=== PATIENT | male | born 1965 | race Caucasian/White ===

== ENCOUNTER 2023-04-29 18:10 | Outpatient (RCR) | payer MEDICARE, SELFPAY | END 2023-05-24 23:59 | disposition home or self-care (01) | LOC: MM 18:10 | PROVIDERS: PCP Internal Medicine; Visit Provider Internal Medicine | DX: Z51.81 Encounter for therapeutic drug level monitoring (principal); Z79.01 Long term (current) use of anticoagulants; I48.91 Unspecified atrial fibrillation | CPT/HCPCS: 85610; G0463 ==

== ENCOUNTER 2023-05-30 10:08 | Outpatient (RCR) | payer MEDICARE, SELFPAY | END 2023-06-24 16:51 | disposition home or self-care (01) | LOC: MM 10:08 | PROVIDERS: PCP Internal Medicine; Visit Provider Internal Medicine | DX: Z51.81 Encounter for therapeutic drug level monitoring (principal); Z79.01 Long term (current) use of anticoagulants; I48.91 Unspecified atrial fibrillation | CPT/HCPCS: 85610; G0463 ==

== ENCOUNTER 2023-06-25 09:05 | Outpatient (RCR) | payer MEDICARE, SELFPAY | END 2023-07-25 17:24 | disposition home or self-care (01) | LOC: MM 09:05 | PROVIDERS: Visit Provider Internal Medicine | DX: Z51.81 Encounter for therapeutic drug level monitoring (principal); Z79.01 Long term (current) use of anticoagulants; I48.91 Unspecified atrial fibrillation | CPT/HCPCS: 85610; G0463 ==

== ENCOUNTER 2023-07-26 08:39 | Outpatient (RCR) | payer MEDICARE, SELFPAY | END 2023-08-23 16:42 | disposition home or self-care (01) | LOC: MM 08:39 | PROVIDERS: Visit Provider Internal Medicine | DX: Z51.81 Encounter for therapeutic drug level monitoring (principal); Z79.01 Long term (current) use of anticoagulants; I48.91 Unspecified atrial fibrillation ==

== ENCOUNTER 2023-08-26 01:39 | Outpatient (RCR) | payer MEDICARE, SELFPAY | END 2023-09-24 17:17 | disposition home or self-care (01) | LOC: MM 01:39 | PROVIDERS: Visit Provider Internal Medicine | DX: Z51.81 Encounter for therapeutic drug level monitoring (principal); Z79.01 Long term (current) use of anticoagulants; I48.91 Unspecified atrial fibrillation | CPT/HCPCS: 85610; G0463 ==

== ENCOUNTER 2023-09-04 14:00 | Outpatient (OUT) | payer MEDICARE, SELFPAY ==
[2023-09-04 14:16] LABS: Basophils Percent Auto 0.4 % (0.2-2.0); Eosinophils Absolute Auto 0.1 10^3/uL (0.0-0.7); Eosinophils Percent Auto 0.9 % (0.9-7.0); Hematocrit 40.7 % (42.0-54.0); Hemoglobin 13.5 g/dL (14.0-18.0); Immature Granulocytes Abs Auto 0.03 10^3/uL (0.00-0.03); Immature Granulocytes Pct Auto 0.4 % (0.0-0.5); Lymphocytes Absolute Auto 1.9 10^3/uL (1.2-3.8); Lymphocytes Percent Auto 24.7 % (20.5-60.0); Mean Corpuscular HGB Conc 33.2 g/dL (29.9-35.2); Mean Corpuscular Hemoglobin 30.9 pg (25.9-34.0); Mean Corpuscular Volume 93.1 fL (80.0-94.0); Mean Platelet Volume 9.8 fL (9.5-13.5); Monocytes Absolute Auto 0.6 10^3/uL (0.3-0.8); Neutrophils Percent Auto 65.6 % (43.0-75.0); Platelet Count 198 10^3/uL (150-450); Red Blood Count 4.37 10^6/uL (4.70-6.10); White Blood Count 7.6 10^3/uL (4.0-11.0)
[2023-09-04 14:44] LABS: Alanine Aminotransferase 16 U/L (16-63); Albumin Globulin Ratio 1.1; Albumin Level 3.6 g/dL (3.4-5.0); Alkaline Phosphatase 77 U/L (46-116); Anion Gap 11.9; Aspartate Amino Transferase 21 U/L (15-37); BUN Creatinine Ratio 17.4; Bilirubin Total 0.4 mg/dL (0.2-1.0); Calcium 9.2 mg/dL (8.5-10.1); Carbon Dioxide 29.1 mmol/L (21.0-32.0); Chloride 103 mmol/L (98-107); Estimated GFR (African America >60 (>=60); Estimated GFR (Non-African Ame >60 (>=60); Globulin 3.4 g/dL; Glucose 97 mg/dL (74-106); Magnesium 1.9 mg/dL (1.8-2.4); Sodium 140 mmol/L (136-145)
== END 2023-09-04 14:01 | disposition home or self-care (01) ==
LOC: LAB 14:02
PROVIDERS: PCP Internal Medicine; Visit Provider Nurse Practitioner
DX: I50.23 Acute on chronic systolic (congestive) heart failure (principal); I25.10 Atherosclerotic heart disease of native coronary artery without angina pectoris; I48.0 Paroxysmal atrial fibrillation
CPT/HCPCS: 36415; 80053; 83735; 83880; 85025

== ENCOUNTER 2023-09-25 00:42 | Outpatient (RCR) | payer MEDICARE, SELFPAY | END 2023-10-24 16:36 | disposition home or self-care (01) | LOC: MM 00:42 | PROVIDERS: PCP Internal Medicine; Visit Provider Internal Medicine | DX: Z51.81 Encounter for therapeutic drug level monitoring (principal); Z79.01 Long term (current) use of anticoagulants; I48.91 Unspecified atrial fibrillation | CPT/HCPCS: 85610; G0463 ==

== ENCOUNTER 2023-10-14 08:05 | Outpatient (OUT) | payer MEDICARE, SELFPAY ==
--- NOTE | 2023-10-14 08:06 | VEIN_ITS ---
Patient Name: TANIA CERVANTES MR#: [id number] : 1965 Exam Date: 10/14/2023 Ordering Doctor: DR MAINE SPRINGER D.O. RADIOLOGY REPORT PROCEDURE: VC EXT VENOUS REFLUX JUAN LMTD COMPARISON: None. INDICATIONS: I83.813 Painful varicose veins of bilateral lower extremitie TECHNIQUE: Duplex imaging of the lower extremity to assess the deep and superficial venous system for the presence of deep or superficial venous incompetence and to document the location and severity of disease. The study includes evaluation of the great saphenous vein (GSV), anterior accessory saphenous vein (AASV) and small saphenous vein (SSV). Patient scanned in reverse Trendelenburg and standing. FINDINGS: RIGHT LOWER EXTREMITY: Saphenofemoral Junction Reflux: Yes 8.8mm 2.1 sec GSV: Diam (mm) Reflux/ Time (sec) Proximal Thigh 7.4 Yes 2.8 Mid Thigh 5.6 Yes 1.0 Distal Thigh 4.3 Yes 1.2 Prox Calf 5.7 Yes 1.0 Mid Calf 3.0 Yes 0.4 Saphenopopliteal Junction Reflux: 4.2mm Yes 0.6 SSV: Proximal Calf 2.4 No Mid Calf 2.6 Yes 0.8 AASV: Not present Proximal Thigh Mid Thigh Distal Thigh Thrombi: No acute or chronic thrombus visualized Compressibility: Normal Flow: Reflux visualized in CFV and DFV. Preforator: Dist/med calf 3.3mm with 0s reflux. Tech Note: Incompetent GSV. Patent varicose vein mid/med calf 5.3mm with 1.8s reflux. Patent varicose vein prox/med calf 4.1mm with 0.7s reflux. Patent varicose vein 3.8mm with 0.6s reflux. Patent varicose vein mid/med calf 3.4mm with 0.9s reflux. LEFT LOWER EXTREMITY: Saphenofemoral Junction Reflux: 9.3 mm 1.9 sec GSV: Diam (mm) Reflux/Time (sec) Proximal Thigh 8.9 Yes 2.3 Mid Thigh 9.4 Yes 2.2 Distal Thigh 10.3 Yes 1.3 Prox Calf 5.7 Yes 2.1 Mid Calf 6.4 Yes 1.0 Saphenopopliteal Junction Relux: 7.6 mm Yes 1.0 SSV: Proximal Calf 7.1 Yes 1.7 Mid Calf 5.3 No AASV: Not present Proximal Thigh Mid Thigh Distal Thigh Thrombi: Chronic thrombus visualized in GSV. Compressibility: Normal Flow: Normal [employer] Supervisor: Dist/med calf 5.9mm with 0.7s reflux. Tech Note: Incompetent GSV and SSV. Patent varicose vein mid/med calf 5.5mm with 2.3s reflux. Patent varicose vein 6.4mm with 2.2s reflux. Patent varicose medial vein 6.5mm with 1.7s reflux. Patent varicose vein mid/med thigh 5.6mm with 0.4s reflux. Patent varicose vein mid/ant thigh 5.6mm with 0.4s reflux. CONCLUSION: 1. Abnormally dilated and incompetent right great saphenous vein, left great saphenous vein, and left small saphenous vein. 2. 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 Dictated by: Bryan Tomas M.D. on 10/14/2023 at 09:08 Approved by: Bryan Tomas M.D. on 10/14/2023 at 10:41
--- NOTE | 2023-10-14 08:06 | VEIN_ITS ---
Patient Name: TANIA CERVANTES MR#: [id number] : 1965 Exam Date: 10/14/2023 Ordering Doctor: DR MAINE SPRINGER D.O. RADIOLOGY REPORT PROCEDURE: [facility] - OFFICE VISIT INITIAL COMPARISON: None. PROGRESS NOTES: [age] year old male who presents with a 4 year history of dilated bulging veins, leg pain and swelling, muscle cramping, edema. The patient's left leg symptoms are worse than the right. There has been a progression of symptoms over past 4 years. This increases with prolonged leg dependency. The patient describes an improvement with rest, elevation, exercise, support stockings, and Tylenol. The patient denies any signs and symptoms to suggest arterial ischemia. The patient describes a family history : Cancer on paternal side. The patient has drinking and smoking history of : Occasional alcohol consumption; no tobacco use. Patient has a past medical history significant for lymphoma, atrial fibrillation, heart disease and multiple ankle/foot surgeries. The patient denies a history of deep venous thrombus or pulmonary embolus. See separate history and physical for medication list. No prior treatment for varicose or spider veins. Current use of compression stockings. After review of nurse notes, history and physical exam I discussed at length the pathophysiology of venous hypertension and possible treatments, therapies and strategies available. We discussed at length the importance of elevating the lower extremities above the level of the heart, increased physical activity and compression stocking use. Ultrasound venous reflux study performed today was discussed at length with the patient. The report demonstrates abnormally dilated and incompetent right great saphenous vein, left great saphenous vein, left small saphenous vein, and bilateral branch saphenous varicosities. PHYSICAL EXAM: The right leg demonstrates multiple prominent varicosities, scattered spider veins, no ulceration, moderate-marked edema, no skin discoloration. The left leg demonstrates numerous prominent varicosities, scattered spider veins, no ulceration, moderate-marked edema, no skin discoloration. Both thighs, legs and feet were symmetrically warm to the touch. Good posterior tibial and dorsalis pedis pulses were present bilaterally. VEIN/VC Facility EST Comprehensive IMPRESSION: 1. Bilateral lower extremity venous insufficiency 2. Bilateral lower extremity varicose veins 3. Moderate-marked bilateral lower extremity subcutaneous edema 4. No flow significant arterial disease 5. CEAP: C3, AP, , MS PLAN: 1. Continued use of compression stockings 2. Elevated legs and increased physical activity symptomatic relief 3. Endovenous laser ablation of left great saphenous vein, right great saphenous vein, left small saphenous vein. 4. Microfoam chemical ablation of bilateral incompetent branch saphenous varicosities. 5. Sclerotherapy as needed. Nurse notes, history and physical were reviewed and confirmed, see attached forms. The nurse was present throughout the physical exam and consultation Dictated by: Bryan Tomas M.D. on 10/14/2023 at 10:42 Approved by: Bryan Tomas M.D. on 10/14/2023 at 11:15
== END 2023-10-14 08:06 | disposition home or self-care (01) ==
LOC: VC 08:05
PROVIDERS: PCP Internal Medicine; Visit Provider Internal Medicine
DX: I83.813 Varicose veins of bilateral lower extremities with pain (principal)
CPT/HCPCS: 93970; G0463

== ENCOUNTER 2023-10-25 09:51 | Outpatient (RCR) | payer MEDICARE, SELFPAY | END 2023-11-22 15:37 | disposition home or self-care (01) | LOC: MM 09:51 | PROVIDERS: PCP Internal Medicine; Visit Provider Internal Medicine | DX: Z51.81 Encounter for therapeutic drug level monitoring (principal); Z79.01 Long term (current) use of anticoagulants; I48.91 Unspecified atrial fibrillation | CPT/HCPCS: 85610; G0463 ==

== ENCOUNTER 2023-11-05 10:18 | Outpatient (OUT) | payer MEDICARE, SELFPAY ==
[2023-11-05 11:07] LABS: Anion Gap 8.8; Carbon Dioxide 31.1 mmol/L (21.0-32.0); Chloride 104 mmol/L (98-107); Estimated GFR (African America >60 (>=60); Estimated GFR (Non-African Ame >60 (>=60); Potassium 3.9 mmol/L (3.5-5.1); Sodium 140 mmol/L (136-145)
== END 2023-11-05 10:19 | disposition home or self-care (01) ==
LOC: LAB 10:21
PROVIDERS: PCP Internal Medicine
DX: I50.22 Chronic systolic (congestive) heart failure (principal)
CPT/HCPCS: 36415; 80051; 82565; 83880; 84520

== ENCOUNTER 2023-11-25 01:05 | Outpatient (RCR) | payer MEDICARE, SELFPAY | END 2023-12-25 17:09 | disposition home or self-care (01) | LOC: MM 01:05 | PROVIDERS: PCP Internal Medicine; Visit Provider Internal Medicine | DX: Z51.81 Encounter for therapeutic drug level monitoring (principal); Z79.01 Long term (current) use of anticoagulants; I48.91 Unspecified atrial fibrillation | CPT/HCPCS: 85610; G0463 ==

== ENCOUNTER 2023-12-26 01:45 | Outpatient (RCR) | payer MEDICARE, SELFPAY | END 2024-01-23 17:16 | disposition home or self-care (01) | LOC: MM 01:45 | PROVIDERS: PCP Internal Medicine; Visit Provider Internal Medicine | DX: Z51.81 Encounter for therapeutic drug level monitoring (principal); Z79.01 Long term (current) use of anticoagulants; I48.91 Unspecified atrial fibrillation | CPT/HCPCS: 85610; G0463 ==

== ENCOUNTER 2024-01-24 01:10 | Outpatient (RCR) | payer MEDICARE, SELFPAY | END 2024-02-21 13:13 | disposition home or self-care (01) | LOC: MM 01:10 | PROVIDERS: PCP Internal Medicine; Visit Provider Internal Medicine | DX: Z51.81 Encounter for therapeutic drug level monitoring (principal); Z79.01 Long term (current) use of anticoagulants; I48.91 Unspecified atrial fibrillation | CPT/HCPCS: 85610; G0463 ==

== ENCOUNTER 2024-02-24 03:15 | Outpatient (RCR) | payer MEDICARE, SELFPAY | END 2024-03-24 18:07 | disposition home or self-care (01) | LOC: MM 03:15 | PROVIDERS: PCP Internal Medicine; Visit Provider Internal Medicine | DX: Z51.81 Encounter for therapeutic drug level monitoring (principal); Z79.01 Long term (current) use of anticoagulants; I48.91 Unspecified atrial fibrillation | CPT/HCPCS: 85610; G0463 ==

== ENCOUNTER 2024-02-25 10:36 | Emergency (ER) | payer MEDICARE, SELFPAY ==
[2024-02-25] VITALS (16 sets, daily range): BP systolic 104–130; BP diastolic 74–88; PULSE 68–88; TEMP 36.2; O2SAT 91–98; BMI 34.3
--- NOTE | 2024-02-25 11:00 | XR_ITS ---
The [address] [address] Patient Name: TANIA CERVANTES MRN: [id number] date: 1965 Sex: M Assigned Patient Location: ER Current Patient Location: ER Accession/Order Number: [id number] Exam Date: 02/25/2024 10:50 Report Date: 02/25/2024 11:45 At the request of: CHEO JOVEL Procedure: XR chest 1V EXAMINATION: XR chest 1V 02/25/2024 8:42 AM PDT HISTORY: Dizziness TECHNIQUE: Single frontal view of the chest acquired. COMPARISONS: Chest x-ray 06/02/2021 FINDINGS: Lines/tubes/other: Cardiac pulse generator and leads are similar. Heart and mediastinum: Cardiac silhouette is upper limits of normal for size, similar. Bones: No acute osseous abnormality. Lungs: Mild bibasilar streaky atelectasis and/or scarring. No pulmonary edema. Pleura: There is no significant pleural effusion or pneumothorax. Other: None. XR/XR chest 1V IMPRESSION: No acute cardiopulmonary abnormality. Electronically authenticated by: JEAN MIMS Date: 02/25/2024 11:45
--- OUTSIDE RECORDS SUMMARY | 2024-02-25 11:00 | XMS_ITS | CCD ---
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 Name Role Phone [place] PARHAM Referring Unavailable OLIVER SPRINGER Primary Care Unavailable POCJUS, [place] DYKES Referring Unavailable OLIVER SPRINGER Primary Care Unavailable POCOS, [place] DYKES Referring Unavailable OLIVER SPRINGER Primary Care Unavailable Oliver Springer Primary Care Provider EVIE CANDELARIA Admitting [place]amonica CANDELARIA, EVIE MARIN Attending UnaEVIE Ybarra Admitting Unavai labEVIE Garrison Referring UnaOLIVER Garcia Primary Care Unavailable PAVELJACE RAWLS Attending Unavailable UNKNOWN, PROVIDER Admitting Unavailable UNKNOWN, PROVIDER Attending Unavailable OLIVER SPRINGER Referring Unavailable OLIVER SPRINGER Primary Care Unavailable ValOliver roy DO Primary Care Provider [phone] Alexander Cox MD Unavailable Abhijit Zelaya MD Unavailable Gian Moran DO, Charles L Primary Care Provider Evie Candelaria DO Unavailable Alexander Cox MD Unavailable Abhijit Zelaya MD Unavailable [phone] Gian Moran DO, Charles L Primary Care Provider Evie Candelaria DO Unavailable [phone] SHAIKH Dereck GARCÍA Attending Unavailable SHAIKH Dereck GARCÍA Admitting Unavailable DR OLIVER SPRINGER Primary Care Unavailable FAWWAD, NOWAK H Attending Unavailable FAWWAD, NOWAK H Admitting Unavailable VALONE, DR GROVE Primary Care Unavailable FAWWAD, NOWAK H Attending Unavailable FAWWAD, NOWAK H Admitting Unavailable VALONE, DR GROVE Primary Care Unavailable FAWWAD, NOWAK H Attending Unavailable FAWWAD, NOWAK H Admitting Unavailable VALONE, DR GROVE Primary Care Unavailable FAWWAD, NOWAK H Admitting Unavailable VALONE, DR GROVE Primary Care Unavailable FAWWAD, NOWAK H Attending Unavailable FAWWAD, NOWAK H Admitting Unavailable VALONE, DR GROVE Primary Care Unavailable FAWWAD, NOWAK H Attending Unavailable FAWWAD, NOWAK H Admitting Unavailable VALONE, DR GROVE Primary Care Unavailable FAWWAD, NOWAK H Attending Unavailable FAWWAD, NOWAK H Attending Unavailable VALONE, DR GROVE Primary Care Unavailable FAWWAD, NOWAK H Admitting Unavailable FAWWAD, NOWAK H Attending Unavailable FAWWAD, NOWAK H Admitting Unavailable VALONE, DR GROVE Primary Care Unavailable MISC, DR DUFFY Attending Unavailable VALONE, DR GROVE Primary Care Unavailable MISC, DR DUFFY Admitting Unavailable MISC, DR DUFFY Consulting Unavailable MISC, DR DUFFY Attending Unavailable MISC, DR DUFFY Admitting Unavailable VALONE, DR GROVE Primary Care Unavailable MISC, DR DUFFY Consulting Unavailable FAWWAD, NOWAK H Attending Unavailable FAWWAD, NOWAK H Admitting Unavailable VALONE, DR GROVE Primary Care Unavailable FAWWAD, NOWAK H Attending Unavailable FAWWAD, NOWAK H Admitting Unavailable VALONE, DR GROVE Primary Care Unavailable TERRA, KELLY Attending Unavailable AIMEEMARIOLA De La Rosa Referring Unavailable TERRA, KELLY Attending Unavailable AIMEE MARIOLA Referring Unavailable Alexander Cox MD Unavailable Abhijit Zelaya MD Unavailable Gian Moran DO, Charles L Primary Care Provider Evie Candelaria DO Unavailable OLIVER SPRINGER JR. Primary Care UnavailOLIVER Jarquin JR. Referring UnavailAJIT Sierra Attending Unavailable OLIVER SPRINGER JR. Primary Care Unavailabl e VALONE JR., OLIVER Gomes Referring Unavailabl AUTUMN Wu Attending Unavailable VALONE ., OLVIER Gomes Referring Unavailabl e VALONE JR., OLIVER Gomes Primary Care Unavailabl AUTUMN Wu Attending Unavailable ADRIELONE ., OLIVER Gomes Referring Unavailabl e VALONE JR., OLIVER Gomes Primary Care Unavailabl AJIT Powell Attending Unavailable GIAN MORAN, OLIVER Gomes Referring Unavailabl e VALONE JR., LOIVER Gomes Primary Care Unavailabl e ALEXANDER COX Attending Unavailable VALONE ., OLIVER Gomes Primary Care Unavailabl e VALONE JR., OLIVER Gomes Primary Care Unavailabl e VALONE JR., OLIVER Gomes Primary Care Unavailabl e VALONE JR., OLIVER Gomes Primary Care Unavailabl e VALONE JR., OLIVER Gomes Primary Care Unavailabl e VALONE JR., OLIVER Gomes Primary Care Unavailabl e VALONE JR., OLIVER Gomes Primary Care Unavailabl e VALONE JR., OLIVER Gomes Primary Care Unavailabl e VALONE JR., OLIVER Gomes Primary Care UnavailALEXANDER Mariscal Referring Unavailable DERRICK NUNEZ Attending Unavailable GIAN ., OLIVER Gomes Referring Unavailabl e VALONE JR., OLIVER Gomes Primary Care Unavailabl e ALEXANDER COX Attending Unavailable Allergies Allergy Classification Reported Allergen(s) Allergy Type Date of Onset Reaction(s) Facility (12 sources) *Seasonal Propensity to adverse reactions to substance 05-09-2017 [facility] Medications Current Medications Medication Drug Class(es) Dates Sig (Normalized) Sig (Original) acetaminophen 325 mg oral tablet (1 source) take 2 tablets by mouth every six hours as needed acetaminophen (TYLENOL) 325 MG tablet Take 650 mg by mouth every 6 (six) hours as needed for pain . 0 Active acetaminophen 325 mg / oxyCODONE hydrochloride 5 mg oral tablet (2 sources) Opioid Agonist Start: 03-24-2020 End: 03-31-2020 take 1 tablet by mouth once as needed for pain, then take 2 tablets by mouth every four hours as needed for pain, then take 7 tablets by mouth as needed for pain oxyCODONE-acetamino phen (PERCOCET) 5-325 mg per tablet Indications: Ankle arthritis Take 1 (one) tablet to 2 (two) tablets by mouth every 4 (four) hours as needed for pain (Days supply per fill: 7) . 28 tablet 0 03/24/2020 03/31/2020 Active amiodarone hydrochloride 200 mg oral tablet (12 sources) Antiarrhythmic Start: 11-21-2023 take 0.5 tablet by mouth once daily AMIOdarone 200 MG tablet Indications: PVC's (premature ventricular contractions) Take 0.5 tablets by mouth daily. 45 tablet 1 11/21/2023 Active Start: 06-03-2023 take 0.5 tablet by m out once daily AMIOdarone 200 MG tablet Indications: PVC's (premature ventricular contractions) Take 0.5 tablets by mouth daily. 45 tablet 1 06/03/2023 Active Start: 11-22-2022 take 1 tablet by petros th once daily AMIOdarone 200 MG tablet Indications: PVC's (premature ventricular contractions) Take 1 tablet by mouth daily. 90 tablet 1 11/22/2022 Active Start: 06-26-2022 take 1 tablet by petros th once daily AMIOdarone 200 MG tablet Take 1 tablet by mouth daily. 90 tablet 1 06/26/2022 Active Start: 05-02-2022 take 1 tablet by petros th once daily AMIOdarone 200 MG tablet Take 1 tablet by mouth daily. 90 tablet 1 05/02/2022 Active take 1 tablet by petros th once daily in the morning amiodarone (CORDARONE) 200 MG tablet Take 200 mg by mouth every morning . 0 Active aspirin 81 mg chewable tablet (12 sources) Platelet Aggregation Inhibitor, Nonsteroidal Anti-inflammatory Drug Start: 01-19-2021 aspirin 81 MG Chew Tab chewable tablet Chew 1 tablet daily. 30 tablet 01/19/2021 Active 24 hr buPROPion hydrochloride 300 mg extended release oral tablet (1 source) Aminoketone take 1 tablet by mouth once daily in the morning buPROPion (WELLBUTRIN XL) 300 MG 24 hr tablet Indications: anxiety with depression Take 300 mg by mouth every morning Reasons: anxiousness associated with depression. 0 Active celecoxib 200 mg oral capsule (1 source) Nonsteroidal Anti-inflammatory Drug Start: 03-24-2020 End: 03-31-2020 take 1 capsule by mouth twice daily celecoxib (CELEBREX) 200 MG capsule Take 1 (one) capsule (200 mg total) by mouth 2 (two) times a day for 7 days . 14 capsule 0 03/24/2020 03/31/2020 Active cephalexin 500 mg oral capsule (1 source) Cephalosporin Antibacterial Start: 03-24-2020 End: 03-31-2020 take 1 capsule by mouth four times daily cephALEXin (Keflex) 500 MG capsule Take 1 (one) capsule (500 mg total) by mouth 4 (four) times a day for 7 days . 28 capsule 0 03/24/2020 03/31/2020 Active eplerenone 25 mg oral tablet (13 sources) Aldosterone Antagonist Start: 08-30-2022 End: 09-26-2023 take 1 tablet by mouth once daily eplerenone 25 MG tablet Take 1 tablet by mouth daily. 90 tablet 3 09/26/2023 Active Start: 05-02-2022 End: 08-30-2022 take 0.5 tablet by mouth once daily eplerenone 25 MG tablet Take 0.5 tablets by mouth daily. 45 tablet 1 05/02/2022 08/30/2022 Discontinued fluvoxaMINE maleate 25 mg oral tablet (1 source) Serotonin Reuptake Inhibitor Start: 07-24-2022 take 1 tablet by mouth twice daily fluvoxamine 25 MG tablet Take 25 mg by mouth 2 times daily. 0 07/24/2022 Active furosemide 40 mg oral tablet (4 sources) Loop Diuretic Start: 09-04-2023 End: 09-03-2024 take 1 tablet by mouth every twenty-four hours as needed furOSEmide 40 MG tablet Take 1 tablet by mouth daily as needed. 09/04/2023 09/03/2024 Active losartan potassium 50 mg oral tablet (1 source) Angiotensin 2 Receptor Ashley take 1 tablet by mouth once daily in the evening losartan (COZAAR) 50 MG tablet Indications: pulmonary Take 50 mg by mouth every evening Reasons: pulmonary. 0 Active 24 hr metoprolol succinate 50 mg extended release oral tablet (12 sources) beta-Adrenergic Ashley Start: 10-15-2023 Metoprolol succinate 50 MG tablet XL 50mg QAM + 25mg QPM 135 tablet 1 10/15/2023 Active Start: 06-26-2022 metoprolol suc cinate 50 MG tablet XL 50mg QAM + 25mg QPM 180 tablet 2 06/26/2022 Active Start: 05-04-2022 metoprolol suc cinate 50 MG tablet XL 50mg QAM + 25mg QPM 180 tablet 2 05/04/2022 Active take 1 tablet by petros th twice daily metoprolol tartrate (LOPRESSOR) 50 MG tablet Indications: pulmonary function Take 50 mg by mouth 2 (two) times a day Reasons: pulmonary function. 0 Active 12 hr ranolazine 500 mg extended release oral tablet (3 sources) Anti-anginal Start: 05-02-2022 take 1 tablet by mouth twice daily Ranolazine 500 MG Tab SR 12 HR tablet Take 1 tablet by mouth 2 times daily. 180 tablet 1 05/02/2022 Active rosuvastatin calcium 10 mg oral tablet (12 sources) HMG-CoA Reductase Inhibitor take 1 tablet by mouth once daily rosuvastatin 10 MG tablet Take 1 tablet by mouth daily. Active sacubitril 49 mg / valsartan 51 mg oral tablet (12 sources) Angiotensin 2 Receptor Ashley Start: 10-03-2022 End: 09-26-2023 Entresto 49-51 MG tablet 0.5 tab two times daily 90 tablet 3 09/26/2023 Active Start: 12-21-2021 take 0.5 tablet by out twice daily Entresto 49-51 MG tablet Take 0.5 tablets by mouth 2 times daily. 0 12/21/2021 Active spironolactone 25 mg oral tablet (1 source) Aldosterone Antagonist take 1 tablet by mouth once daily in the morning spironolactone (ALDACTONE) 25 MG tablet Indications: edema Take 25 mg by mouth every morning Reasons: visible water retention. 0 Active warfarin sodium 5 mg oral tablet (13 sources) Vitamin K Antagonist Start: 03-25-20 End: 04-24-20 20 take 1 tablet by mouth once daily in the evening warfarin (COUMADIN) 5 MG tablet Indications: prevent thromboembolism in chronic atrial fibrillation Take 1 (one) tablet (5 mg total) by mouth every evening Start: 03/25/20 Reasons: treatment to prevent blood clots in chronic atrial fibrillation. 30 tablet 0 03/25/2020 04/24/2020 Active Completed/Discontinued Medications Medication Drug Class(es) Dates Sig (Normalized) Sig (Original) calcium chloride 0.0014 meq/ml / potassium chloride 0.004 meq/ml / sodium chloride 0.103 meq/ml / sodium lactate 0.028 meq/ml injectable solution (1 source) Start: 03-24-2020 End: 03-24-2020 lactated Ringers infusion dapagliflozin 5 mg oral tablet (3 sources) Sodium-Glucose Cotransporter 2 Inhibitor Start: 05-02-2022 End: 08-30-2022 take 1 tablet by mouth once daily dapagliflozin 5 MG tablet Take 1 tablet by mouth daily. 90 tablet 1 05/02/2022 08/30/2022 Discontinued 0.4 ml enoxaparin sodium 100 mg/ml prefilled syringe (1 source) Low Molecular Weight Heparin Start: 03-24-2020 End: 03-24-2020 inject 0.4 mL by subcutaneous injection once daily enoxaparin (Lovenox) 40 mg/0.4 mL Syrg Inject 0.4 mL (40 mg total) under the skin daily . 30 Syringe 0 03/24/2020 03/24/2020 Discontinued (Stop Taking at Discharge) 20 ml fentaNYL 0.05 mg/ml injection (2 sources) Opioid Agonist Start: 03-24-2020 End: 03-24-2020 25 mcg, Intravenous, Every 5 min PRN, moderate to severe pain, Starting Yvonne 03/24/20 at 1204, For 4 doses, PACU (only) [] Do not give more than 100 mcg while in PACU. Start: 03-24-2020 End: 03-24-2020 100 mcg, Intravenous, Once, Yvonne 03/24/20 at 0715, For 1 dose, Pre-Procedure Pre-procedure for nerve block. May repeat in 5 minutes x 1 if sedation inadequate to perform block. 0.5 ml HYDROmorphone hydrochloride 1 mg/ml prefilled syringe (1 source) Opioid Agonist Start: 03-24-2020 End: 03-24-2020 0.5 mg, Intravenous, Every 10 min PRN, moderate to severe pain, Starting Yvonne 03/24/20 at 1204, For 6 doses, PACU (only) [] Give if fentanyl not effective or not ordered. [] Do not give more than 3 mg total. 4 ml labetalol hydrochloride 5 mg/ml cartridge (1 source) beta-Adrenergic Ashley Start: 03-24-2020 End: 03-24-2020 5 mg, Intravenous, Every 5 min PRN, SBP greater than 160 or DBP greater than 90, Starting Yvonne 03/24/20 at 1204, For 4 doses, PACU (only) [] Do not give more than 20 mg total. [] Hold for HR less than 50. Lidocaine (1 source) Antiarrhythmic, Amide Local Anesthetic Start: 03-24-2020 End: 03-24-2020 5 mL, Other, Once, Yvonne 03/24/20 at 0715, For 1 dose, Pre-Procedure [] for anesthesia block administration 5 ml midazolam 1 mg/ml injection (1 source) Benzodiazepine Start: 03-24-2020 End: 03-24-2020 2 mg, Intravenous, Once, Yvonne 03/24/20 at 0715, For 1 dose, Pre-Procedure Pre-proced ure for nerve block. May repeat in 5 minutes x 1 if sedation inadequate to perform block. naloxone (NARCAN) injection 0.1 mg (2 sources) Start: 03-24-2020 End: 03-24-2020 naloxone (NARCAN) injection 0.1 mg Start: 03-24-2020 End: 03-24-2020 naloxone (NARCAN) injection 0.1 mg 2 ml ondansetron 2 mg/ml injection (1 source) Serotonin-3 Receptor Antagonist Start: 03-24-2020 End: 03-24-2020 4 mg, Intravenous, Every 15 min PRN, nausea, vomiting, Starting Yvonne 03/24/20 at 1204, For 2 doses, PACU (only) Do not give more than 2 doses. Administer first as needed for nausea/vomiting, or as directed by anesthesia oxyCODONE hydrochloride 20 mg/ml oral solution (1 source) Opioid Agonist Start: 03-24-2020 End: 03-24-2020 take 5 mg under the tongue every twenty-four hours as needed 5 mg, Sublingual, Once as needed, moderate to severe pain, Pain, Starting Yvonne 03/24/20 at 1204, For 1 dose, PACU (only) Use first if unable to tolerate oral route. 20 ml ropivacaine hydrochloride 5 mg/ml injection (1 source) Amide Local Anesthetic Start: 03-24-2020 End: 03-24-2020 45 mL, Infiltration, Once, Yvonne 03/24/20 at 0715, For 1 dose, Pre-Procedure [] for anesthesia block administration sertraline 100 mg oral tablet (1 source) Serotonin Reuptake Inhibitor Start: 04-17-2023 End: 09-26-2023 take 1 tablet by mouth once daily Sertraline 100 MG tablet Take 1 tablet by mouth daily. 0 04/17/2023 09/26/2023 Discontinued (Discontinued by another clinician (suppress cancel msg)) Problems Active Problems Problem Classification Problem Date Documented Da te Episodic/Chronic Cardiac dysrhythmias (20 sources) Paroxysmal atrial fibrillation; Translations: [Paroxysmal atrial fibrillation] Onset: 05-09-2017 07-11-2020 Chronic Conduction disorders (2 sources) Encounter for adjustment and management of automatic implantable cardiac defibrillator; Translations: [Encounter for adjustment and management of automatic implantable cardiac defibrillator] Onset: 06-05-2023 Chronic Congestive heart failure; nonhypertensive (20 sources) Acute on chronic systolic heart failure; Translations: [Acute on chronic systolic (congestive) heart failure] Onset: 01-04-2022 01-04-2022 Chronic Coronary atherosclerosis and other heart disease (5 sources) Coronary atherosclerosis; Translations: [Atherosclerotic heart disease of [place] coronary artery without angina pectoris] Onset: 09-04-2023 Chronic Other aftercare (2 sources) Patient encounter status; Translations: [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] Episodic Other aftercare (5 sources) Encounter for therapeutic drug level monitoring; Translations: [ENC THERAPEUTC DRUG LEVL MONITORING] Onset: 03-23-2023 Episodic Other aftercare (1 source) 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; Translations: [SENIOR AUDITOR CURRNT USE ANTICOAGULANTS] Onset: 04-24-2023 Episodic Other non-traumatic joint disorders (1 source) Disorder of ankle joint; Translations: [Ankle arthritis] Episodic Other nutritional; endocrine; and metabolic disorders (9 sources) Obese class I; Translations: [Obesity, unspecified] Onset: 08-30-2022 08-30-2022 Chronic Residual codes; unclassified (11 sources) Obstructive sleep apnea syndrome; Translations: [Obstructive sleep apnea (adult) (pediatric)] Onset: 01-04-2022 01-04-2022 Chronic Past or Other Problems Problem Classification Problem Date Documented Da te Episodic/Chronic Other aftercare (2 sources) 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; Translations: [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] Onset: 05-23-2023 Episodic Other non-traumatic joint disorders (2 sources) Hip pain Episodic Results Test Name Value Interpretation Reference Range Facility ALP ALT Manuel 01-09-2024 ALP [Catalytic activity/Vol] 66 U/L Normal 32-126 [facility] Comment on above: Performed By: #### E NZ3 #### [facility] (DEFAULT) [address] [place] [address] ALT [Catalytic activity/Vol] 10 U/L Normal 10-52 [facility] Comment on above: Performed By: #### E NZ3 #### [facility] (DEFAULT) [address] [address] AST [Catalytic activity/Vol] 21 U/L Normal 10-39 [facility] Comment on above: Performed By: #### E NZ3 #### [facility] (DEFAULT) [address] [place] [address] T4 FREEon 01-09-2024 Free T4 [Mass/Vol] 1.43 ng/dL Normal 0.89-1.76 [facility] Comment on above: Performed By: #### T DEBORAH, FT4 #### [facility] (DEFAULT) [address] [place] [address] TSHon 01-09-2024 TSH 1.456 uIU/mL Normal 0.550-4.780 [facility] Comment on above: Performed By: #### Denny CABRERA, FT4 #### [facility] (DEFAULT) [address] [place] [address] BNP, MANUAL ENTERon 11-06-20 B-Type Natriuretic Peptide (BNP), MANUAL ENTER 1159 [facility] Comment on above: NT-PRO BNP [facility] CHEM 7 PANEL, MANUAL ENTERon 11-06-2023 Blood Urea Nitrogen (BUN), MANUAL ENTER 17.0 [facility] BUN/CREA RATIO, MANUAL ENTER [facility] CALCIUM (CA), MANUAL ENTER [facility] Carbon Diox(CO2), MANUAL ENTER 31.1 [facility] Chloride (CL), MANUAL ENTER 104 mmol/L [facility] CREATININE, SERUM, MANUAL ENTER 1.10 mg/dL [facility] GLUCOSE, [facility] MAGNESIUM (MG), MANUAL ENTER [facility] Phosphate (PO4), Manual Enter [facility] POTASSIUM (K+), MANUAL ENTER 3.9 [facility] SODIUM (NA), [facility]IM[facility] G[facility], NON A DAMIAN, MANUAL ENTERon 11-06-2023 ESTIMATED GFR, NON AMER, MANUAL ENTER [facility] Office Visiton 09-04-2023 Follow-up visit [id number] Tania Venegas 1965 M Date Provider Department Center 09/04/2023 Katherin-KELLY ELLISON CARD [facility] Family History Problem Relation Age of Onset COPD Father Other Father Family Status - Relation Status Age at Father Level of Service:97552 PA OFFICE/OUTPATIENT ESTABLISHED MOD MDM 30-39 MIN Normal [facility] ALP ALT Manuel 05-23-2023 ALP [Catalytic activity/Vol] 65 U/L Normal 32-126 [facility] Comment on above: Performed By: #### Manny MERRILL, O, KKO #### [facility] (DEFAULT) [address] [place] [id number] ALT [Catalytic activity/Vol] 7 U/L Low 10-52 [facility] Comment on above: Performed By: #### Manny MERRILL, MGO, KKO #### [facility] (DEFAULT) [address] [place] [address] AST [Catalytic activity/Vol] 25 U/L Normal 10-39 [facility] Comment on above: Performed By: #### Manny MERRILL, MGO, KKO #### [facility] (DEFAULT) [address] [place] [address] MAGNESIUMon 05-23-2023 Magnesium [Mass/Vol] 2.0 mg/dL Normal 1.6-2.6 [facility] Comment on above: Performed By: #### E SYLVIE3, TANVIR, ANGELO #### [facility] (DEFAULT) [address] [place] [address] POTASSIUMon 05-23-2023 Potassium [Moles/Vol] 4.6 mmol/L Normal 3.5-5.0 [facility] Comment on above: Performed By: #### E SYLVIE3, TANVIR, ANGELO #### [facility] (DEFAULT) [address] [place] [address] TSH W/FT4 REFLEXon 3 TSH 1.254 uIU/mL Normal 0.550-4.780 [facility] Comment on above: Performed By: #### T SHQR #### [facility] (DEFAULT) [address] [place] [address] FUNCTIONAL VO2 TESTINGOrdere d By: Arpan Ya on 01-10-2023 % APHRMAX 77 % [facility] Work Phone: APHRMAX 163 bpm [facility] Work Phone: Baseline DBP 69 mmHg [facility] Work Phone: Baseline DBP 66 mmHg [facility] Work Phone: Baseline HR 76 bpm [facility] Work Phone: Baseline HR 75 bpm [facility] Work Phone: Body surface area Derived from formula 2.39 m2 [facility] Work Phone: Estimated workload 8.0 METS [facility] Work Phone: Exercise duration (min) 6 min [facility] Work Phone: Exercise duration (sec) 42 sec [facility] Work Phone: lowest spo2 97 [facility] Work Phone: [facility] VO2 METS 8 [facility] Work Phone: Peak DBP 66 mmHg [facility] Work Phone: Peak HR 125 bpm [facility] Work Phone: Peak percent predicted 77 [facility] Work Phone: Peak SBP 130 mmHg [facility] Work Phone: peak SpO2 97 [facility] Work Phone: PEAKVO2 20 [facility] Work Phone: percent of peak vo2 87 [facility] Work Phone: Rate Pressure Product [id number] [facility] Work Phone: RER 1.24 [facility] Work Phone: RPE 19 [facility] Work Phone: RR MAX 28 [facility] Work Phone: ventilatory efficiency/vco2 30 [facility] Work Phone: vo2 at anaerobic threshold 18.3 [facility] Work Phone: FUNCTIONAL VO2 TESTINGon There is a mild reduction in cardiopulmonary exercise capacity. Peak VO2 20.0, which is 77% predicted. RER: (1.24), excellent exercise effort. Ventilatory efficiency is normal. Ve/VCO2 30. Estimated workload 8 METS. The resting blood pressure of 116/69 mmHg kyle to a maximum blood pressure of 130/66 mmHg. ECG results indeterminate due to a paced rhythm. Stress Findings A stress test was performed using the Patricio protocol, with the patient reaching stage 3. The patient reported no symptoms prior to the stress test. The patient reported shortness of breath during the stress test. 8/10 at peak Onset of symptoms occurred at stage 2 of the protocol. Blood pressure demonstrated a blunted response to exercise. The test was stopped due to fatigue and dyspnea. ECG ECG results indeterminate due to a paced rhythm. VO2 Findings There is a mild reduction in cardiopulmonary exercise capacity. RER: 1.24, excellent. Ventilatory efficiency is normal. CARDIOLOGY No Panel InformationOrdered By: Arpan Ya on 01-10-2023 Baseline SBP 116 [facility]: [facility] Work Phone: No Panel Informationon 01-10 Radiology Study observation (narrative) [facility] Vital signsOrdered By: Arpan Ya on 01-10-2023 Oxygen saturation in Blood 97 % [facility] Work Phone: Office Visiton 12-12-2022 Follow-up visit [id number] Tania Venegas 1965 M Date Provider Department Center 12/12/2022 KELLY WAN KIRSTEN [facility] Family History Problem Relation Age of Onset COPD Father Other Father Family Status - Relation Status Age at Father Level of Service:79641 PA OFFICE/OUTPATIENT ESTABLISHED MOD MDM 30-39 MIN Reason for Visit and Comments: Congestive Heart Failure [127] Coronary Artery Disease [187] Atrial Fibrillation [80] Normal [facility] PROF CHEM 8 (BAS METB)on Anion gap [Moles/Vol] 10.4 mmol/L Normal [facility] Comment on above: Performed By: #### B MP #### [facility] [address] [address] [address] Robbin Meek Calcium [Mass/Vol] 8.7 mg/dL Normal 8.5-10.1 [facility] Comment on above: Performed By: #### B MP #### [facility] [address] [address] [address] Robbin Meek Chloride [Moles/Vol] 101 mmol/L Normal 98-107 [facility] Comment on above: Performed By: #### B MP #### [facility] [address] [address] [address] Robbin Meek CO2 [Moles/Vol] 29.9 mmol/L Normal 21.0-32.0 [facility] Comment on above: Performed By: #### B MP #### [facility] [address] [address] [address] Robbin Meek Creatinine [Mass/Vol] 1.15 mg/dL Normal 0.70-1.30 [facility] Comment on above: Performed By: #### B MP #### [facility] [address] [address] [address] Robbin Meek EGFR-AF FAROESE >60 Normal >=60 [facility] Comment on above: Performed By: #### B MP #### [facility] [address] [address] [address] Robbin Meek EGFR-NON AF FAROESE >60 Normal >=60 [facility] Comment on above: Performed By: #### B MP #### [facility] [address] [address] [address] Robbin Meek Glucose [Mass/Vol] 101 mg/dL Normal 74-106 [facility] Comment on above: Performed By: #### B MP #### [facility] [address] [address] [address] Robbin Meek Potassium [Moles/Vol] 4.3 mmol/L Normal 3.5-5.1 [facility] Comment on above: Performed By: #### B MP #### [facility] [address] [address] [address] Robbin Meek Sodium [Moles/Vol] 137 mmol/L Normal 136-145 [facility] Comment on above: Performed By: #### B MP #### [facility] [address] [address] [address] Robbin Meek Urea nitrogen [Mass/Vol] 17.0 mg/dL Normal 7.0-18.0 [facility] Comment on above: Performed By: #### B MP #### [facility] [address] [address] [address] Robbin Meek Urea nitrogen/Creatinine [Mass ratio] 14.8 mg/mg Normal [facility] Comment on above: Performed By: #### B MP #### [facility] [address] [address] [address] Robbin Meek DEVICE EVALUATION (SCANNED)o n 06-08-2022 [facility] No Panel Informationon 06-01 ANION GAP, MANUAL ENTER 11.3 O [facility] Blood Urea Nitrogen (BUN), MANUAL ENTER 18 [facility] BUN/CREA RATIO, MANUAL ENTER 15.5 [facility] CALCIUM (CA), MANUAL ENTER 8.9 [facility] Carbon Diox(CO2), MANUAL ENTER 27.2 [facility] Chloride (CL), MANUAL ENTER 101 mmol/L [facility] CREATININE, SERUM, MANUAL ENTER 1.16 mg/[facility]IM[facility] GFR, , MANUAL ENTER >60 [facility] ESTIMATED GFR, NON AMER, MANUAL ENTER >60 [facility] GLUCOSE, MANUAL ENTER 98 [facility] MAGNESIUM (MG), MANUAL ENTER [facility] Phosphate (PO4), Manual Enter [facility] POTASSIUM (K+), MANUAL ENTER 4.5 [facility] SODIUM (NA), MANUAL ENTER 135 [facility] PROF CHEM 8 (BAS METB)on Anion gap [Moles/Vol] 11.3 mmol/L Normal [facility] Comment on above: Performed By: #### B MP #### [facility] [address] [address] [address] Robbin Meek Calcium [Mass/Vol] 8.9 mg/dL Normal 8.5-10.1 [facility] Comment on above: Performed By: #### B MP #### [facility] [address] [address] [address] Robbin Meek Chloride [Moles/Vol] 101 mmol/L Normal 98-107 [facility] Comment on above: Performed By: #### B MP #### [facility] [address] [address] [address] Robbin Meek CO2 [Moles/Vol] 27.2 mmol/L Normal 21.0-32.0 [facility] Comment on above: Performed By: #### B MP #### [facility] [address] [address] [address] Robbin Meek Creatinine [Mass/Vol] 1.16 mg/dL Normal 0.70-1.30 [facility] Comment on above: Performed By: #### B MP #### [facility] [address] [place] [address] Dr. Robbin Meek EGFR-AF FAROESE >60 Normal >=60 [facility] Comment on above: Performed By: #### B MP #### [facility] [address] [address] [address] Robbin Meek EGFR-NON AF FAROESE >60 Normal >=60 [facility] Comment on above: Performed By: #### B MP #### [facility] [address] [place] [address] Dr. Robbin Meek Glucose [Mass/Vol] 98 mg/dL Normal 74-106 [facility] Comment on above: Performed By: #### B MP #### [facility] [address] [place] [address] Dr. Robbin Meek Potassium [Moles/Vol] 4.5 mmol/L Normal 3.5-5.1 [facility] Comment on above: Performed By: #### B MP #### [facility] [address] [place] [address] Dr. Robbin Meek Sodium [Moles/Vol] 135 mmol/L Critically low 136-145 [facility] Comment on above: Performed By: #### B MP #### [facility] [address] [place] [address] Dr. Robbin Meek Urea nitrogen [Mass/Vol] 18.0 mg/dL Normal 7.0-18.0 [facility] Comment on above: Performed By: #### B MP #### [facility] [address] [place] [address] Dr. Robbin Meek Urea nitrogen/Creatinine [Mass ratio] 15.5 mg/mg Normal [facility] Comment on above: Performed By: #### B MP #### [facility] [address] [place] [address] Dr. Robbin Meek Coding Summary.on 11-23-2020 Coding Summary. 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 However, the narrative phrase printed from the coding software may appear abbreviated, or result in slightly different terminology. Coded By: Lary Huerta Date Saved: 11/23/2020 10:36 am [facility] Coding Summary.on 11-16-2020 Coding Summary. CODING DATE: 11/16/2020 FINAL [facility] STATUS: Home (Routine DC) PAYOR: Medicare APC DESCRIPTION 5481 Laser Eye Procedures ADMIT DX: REASON FOR VISIT DX: H26.492 Other secondary cataract, left eye FINAL DX: PRINCIPAL: H26.492 Other secondary cataract, left eye SECONDARY: PYMT PROC APC STAT DESCRIPTION DOCTOR NAME DATE 82575 5481 T Discission of secondary Matthias Dillon DO 11/10/2020 membranous cataract (opacified posterior lens capsule and/or anterior hyaloid); laser surgery (eg, YAG laser) (1 or more stages) LT Left side (used to identify procedures performed on the left side of the body) NOTE: The code number assigned matches the documented diagnosis and / or procedure in the patient's chart. However, the narrative phrase printed from the coding software may appear abbreviated, or result in slightly different terminology. Coded By: Lary Huerta Date Saved: 11/16/2020 01:26 pm [facility] Consent for Procedure/Surger yon 11-15-2020 Consent for Procedure/Surgery [id number] #1.00CD:127 [facility] Consent for Treatmenton 10-26 Consent for Treatment [id number] #1.00CD:127 Normal [facility] Discharge Instructionson Discharge Instructions [id number] 120 [id number] #1.00CD:127 Normal [facility] History and Physicalon 11-15 History and Physical [id number] 0 [id number] #1.00CD:127 Normal [facility] IntraOperative Documentson 1 01-16-2020 IntraOperative Documents [id number] #1.00CD:127 Normal [facility] IntraOperative Documents [id number] #1.00CD:127 [facility] Consent for Procedure/Surger yon 11-11-2020 Consent for Procedure/Surgery [id number] 0#1.00CD:127 [facility] Discharge Instructionson Discharge Instructions [id number] [id number]#1.00CD:127 Normal [facility] History and Physicalon 11-11 History and Physical [id number] 0#1.00CD:127 Normal [facility] IntraOperative Documentson 01-12-2020 IntraOperative Documents [id number] 4#1.00CD:127 Normal [facility] IntraOperative Documents [id number]#1.00CD:127 Normal [facility] Consent for Treatmenton 10-25 Consent for Treatment [id number] 01 [id number] #1.00CD:127 Normal [facility] COVID-19([facility])on 07-21-2020 COVID-19([facility]) NOT DETECTED Normal NOT DETECTED [facility] Comment on above: Performed By: #### C OVID-19([facility]) #### [facility] [address] [place], [place] [id number] COVID-19([facility])on 07-18-2020 Age at specimen collection = Normal [facility] Comment on above: Performed By: #### C OVID-19([facility]) #### [facility] [address] [place], [place] [id number] PT/INRon 03-24-2020 INR Coag (PPP) [Relative time] 1.0 {INR} [facility] Interpretation and review of laboratory results Normal [facility] PT Coag (PPP) [Time] 13.1 s [facility] During the induction phase of oral anticoagulation, the INR may not reflect the anticoagulation status of the patient. Therapeutic ranges for INR's are: Most clinical situations: INR 2.0-3.0 Mechanical Prosthetic Valve: INR 2.5-3.5 Critical: INR >5.0 [facility] SCAN OTHER ORDERSon 03-24-20 Ordered by an unspecified provider. [facility] Otheron 02-18-2020 Ordered by an unspecified provider. [facility] XR HIP 2-3 VW W PELVIS LEFTo n 12-24-2019 XR HIP 2-3 VW W PELVIS LEFT EXAM: XR HIP 2-3 VW W PELVIS LEFT HISTORY: M25.552 54-year-old male, left hip pain and burning 3-4 days. COMPARISON: Lumbar spine dictated separately same date. TECHNIQUE: AP pelvis and AP and frog-leg views left hip. FINDINGS: Bilateral total hip prostheses. The left hip prosthesis shows normal alignment and hardware. IMPRESSION: Left hip prosthesis in anatomic alignment. Interpreted by: Yosvany Woodson Jr., MD Signed by: Yosvany Woodson Jr., MD 12/24/19 Final result Normal [facility] XR HIP 2-3 VW W PELVIS LEFTO rdered By: Ny Parham on 12-24-2019 Left hip prosthesis in anatomic alignment. [facility] Work Phone: EXAM: XR HIP 2-3 VW W PELVIS LEFT HISTORY: M25.552 54-year-old male, left hip pain and burning 3-4 days. COMPARISON: Lumbar spine dictated separately same date. TECHNIQUE: AP pelvis and AP and frog-leg views left hip. FINDINGS: Bilateral total hip prostheses. The left hip prosthesis shows normal alignment and hardware. [employer] Phone: Barry, [employer] Incoming Radiant Results From RoomClip - 12/24/2019 10:06 AM EST EXAM: XR HIP 2-3 VW W PELVIS LEFT HISTORY: M25.552 54-year-old male, left hip pain and burning 3-4 days. COMPARISON: Lumbar spine dictated separately same date. TECHNIQUE: AP pelvis and AP and frog-leg views left hip. FINDINGS: Bilateral total hip prostheses. The left hip prosthesis shows normal alignment and hardware. IMPRESSION: Left hip prosthesis in anatomic alignment. [employer] Phone: XR LUMBAR SPINE (MIN 4 VIEWS )on 12-24-2019 XR LUMBAR SPINE (MIN 4 VIEWS) EXAM: XR LUMBAR SPINE (MIN 4 VIEWS) HISTORY: M25.552, 54-year-old male left hip pain, burning. COMPARISON: Pelvis and left hip dictated separately same date. TECHNIQUE: 5 views lumbar spine. FINDINGS: Moderate diffuse disc degenerative change. Partial inclusion of bilateral hip prostheses. Anastomotic suture ring and surgical clips near the ascending colon. IMPRESSION: Multilevel moderate degenerative change. Interpreted by: Yosvany Woodson Jr., MD Signed by: Yosvany Woodson Jr., MD 12/24/19 Final result Normal [facility] XR LUMBAR SPINE (MIN 4 VIEWS )Ordered By: Ny Parham on 12-24-2019 Multilevel moderate degenerative change. [employer] Phone: EXAM: XR LUMBAR SPINE (MIN 4 VIEWS) HISTORY: M25.552, 54-year-old male left hip pain, burning. COMPARISON: Pelvis and left hip dictated separately same date. TECHNIQUE: 5 views lumbar spine. FINDINGS: Moderate diffuse disc degenerative change. Partial inclusion of bilateral hip prostheses. Anastomotic suture ring and surgical clips near the ascending colon. [employer] Phone: Barry, Mhpn Incoming Radiant Results From [employer] - 12/24/2019 10:06 AM EST EXAM: XR LUMBAR SPINE (MIN 4 VIEWS) HISTORY: M25.552, 54-year-old male left hip pain, burning. COMPARISON: Pelvis and left hip dictated separately same date. TECHNIQUE: 5 views lumbar spine. FINDINGS: Moderate diffuse disc degenerative change. Partial inclusion of bilateral hip prostheses. Anastomotic suture ring and surgical clips near the ascending colon. IMPRESSION: Multilevel moderate degenerative change. [employer] Phone: Basic Metabolic Panlon 12-09 Anion gap [Moles/Vol] 14 mmol/L Normal 9-18 [facility] Comment on above: Performed By: #### B YA, HFP, LD6 #### [facility] [address] [address] Calcium [Mass/Vol] 8.9 mg/dL Normal 8.5-10.2 [facility] Comment on above: Performed By: #### B YA, HFP, LD6 #### [facility] [address] [address] Chloride [Moles/Vol] 99 mmol/L Normal 97-105 [facility] Comment on above: Performed By: #### B YA, HFP, LD6 #### [facility] [address] [address] CO2 [Moles/Vol] 25 mmol/L Normal 22-30 [facility] Comment on above: Performed By: #### B MP, HFP, LD6 #### [facility] [address] [place], [place] [address] Creatinine [Mass/Vol] 1.08 mg/dL Normal 0.73-1.22 [facility] Comment on above: Performed By: #### B MP, HFP, LD6 #### [facility] [address] [address] eGFR- Amer. >[address] [facility] Comment on above: Performed By: #### B MP, HFP, LD6 #### [facility] [address] [address] GFR/1.73 sq M predicted among non-blacks MDRD (S/P/Bld) [Vol rate/Area] mL/min/{1.73_m2} Normal [facility] Comment on above: Result Comment: eGFR (Estimated GFR) Units of measure: mL/min/1.73 meters squared eGFR is derived from the reexpressed MDRD Study equation using the following parameters: serum creatinine, age, gender and race. The creatinine assay has been calibrated to be traceable to IDMS. An eGFR <60 mL/min/1.73m2 for >3 months is consistent with chronic kidney disease. Refer to KDOQI guidelines for clinical interpretation. In patients with unstable renal function, e.g. those with acute kidney injury, the eGFR may not accurately reflect actual GFR. Performed By: #### B DARELL PANDYA LD6 #### [facility] [address] [id number] Glucose [Mass/Vol] 98 mg/dL Normal 74-99 [facility] Comment on above: Result Comment: The [place] Diabetes Association (ADA) provides guidance for cutoff values for fasting glucose and random glucose. The ADA defines fasting as no caloric intake for at least 8 hours. Fasting plasma glucose results between 100 to 125 mg/dL indicate increased risk for diabetes (prediabetes). Fasting plasma glucose results greater than or equal to 126 mg/dL meet the criteria for diagnosis of diabetes. In the absence of unequivocal hyperglycemia, results should be confirmed by repeat testing. In a patient with classic symptoms of hyperglycemia or hyperglycemic crisis, random plasma glucose results greater than or equal to 200 mg/dL meet the criteria for diagnosis of diabetes. Reference: Standards of Medical Care in Diabetes 2016, [place] [employer] Association. Diabetes Care. 2016.39(Suppl 1). Performed By: #### B DARELL PANDYA, LD6 #### [facility] [address] [place], [place] [address] Potassium [Moles/Vol] 4.5 mmol/L Normal 3.7-5.1 [facility] Comment on above: Performed By: #### B DARELL PANDYA, LD6 #### [facility] [address] [place], [place] [address] Sodium [Moles/Vol] 138 mmol/L Normal 136-144 [facility] Comment on above: Performed By: #### B DARELL PANDYA, LD6 #### [facility] [address] [place], [place] [address] Urea nitrogen [Mass/Vol] 17 mg/dL Normal 9-24 [facility] Comment on above: Performed By: #### B YA, DARELL, LD6 #### [facility] [address] [place], [place] [address] CNOVSPon 12-09-2019 CNOVSP Visit (SP) Office ([facility]) HELENTANIA Manny ([id number]) 1965 M Date Time Provider Department 12/09/19 3:45 PM ARON PEREYRA During your visit today, we recorded the following information about you: Temperature Pulse Respiration Blood pressure 98.1 degrees 64/minute 16/minute 133/88 Weight Height 121.1 kg 1.854 m Aron Pereyra DO 12/12/2019 10:45 AM Signed PATIENT NAME: Tania Venegas REFERRING PHYSICIAN: [facility] PHYSICIAN: Oliver Springer Jr, DO CHIEF COMPLAINT: Diffuse large b-cell lymphoma, unspecified body region (hcc) (primary encounter diagnosis) ASSESSMENT/PLAN: (C83.30) Diffuse large B-cell lymphoma, unspecified body region (HCC) (primary encounter diagnosis) Visit (SP) Office on 12/09/19 - BASIC METABOLIC PNL - CBC + DIFF (FOR REMOTE [facility] USE) - HEPATIC FUNCTION PNL - LD LACTATE DEHYDRO - amiodarone (PACERONE) 200 mg tablet - furosemide (LASIX) 20 mg tablet - spironolactone (ALDACTONE) 25 mg tablet No follow-ups on file. 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 He follows with cardiology. Had ablations for afib and pvcs. Diffuse large B-cell lymphoma, The patient has no signs or symptoms or recurrence. I offered to have him continue to follow yearly or follow-up with me only as needed. His primary care provider, Dr. Springer and I communicate regularly regarding many patients. He will continue to follow with his primary care provider for now without oncologic subspecialty routine follow-up. He will call if he develops any concerning symptoms. HISTORY OF PRESENT ILLNESS: This is a 54 year old male presents in follow up for lymphoma. He continues to follow with cardiology for his idiopathic cardiomyopathy. He has a defibrillator and pacemaker. He is scheduled for an ablation soon as well. He denies any fevers, chills, night sweats, weight loss. He feels well overall. He was diagnosed and treated for stage I lymphoma in 2006. He was treated surgery, followed by with three cycles of chemo and radiation to cure his disease. December 09, 2019 No fevers. Sweats, chills, no lumps or bumps. No problems eating. Gained wt in last few months. Maybe 20lbs. Vitals: BP 133/88 Pulse 64 Temp 36.7 ?C (98.1 ?F) (Oral) Resp 16 Ht 185.4 cm (6' 0.99 ) Wt 121.1 kg (267 lb) SpO2 99% BMI 35.23 kg/m? Body mass index is 35.23 kg/m?. Body surface area is 2.5 meters squared. REVIEW OF SYSTEMS PHYSICAL EXAM ECOG PS: 0 NEGATIVES POSITIVES NEGATIVES POSITIVES GEN: fevers, sweats, chills. Overall feels well. GEN: Well appearing, alert, in no acute distress, appears stated age SKIN: lesions, rash, itching. SKIN: Normal color, texture, turgor, no rashes or lesions HEENT: significant headaches, changes in hearing, changes in vision, nose bleeds. ENT: No scleral icterus. NECK: Supple, no thyromegaly, no JVD. : dysuria, frequency or incontinence. LYMPH: No cervical, supraclavicular, axillary, inguinal adenopathy. RESP: dyspnea, cough, wheezing. LUNG: Clear to auscultation, no wheezing rales or rhonchi CARD: chest pain, leg swelling, palpitations. HEART: Regular. No murmurs, gallop, or rubs. No ectopy. GI: abdominal pain, nausea, vomiting, diarrhea, constipation, melena, hematochezia. ABDM: Soft. Non-tender. Non-distended. Bowel sounds normal. No masses. No hepatosplenomegaly. HEME: prolonged bleeding, bruising, adenopathy. EXT: No clubbing, cyanosis or edema. MUSC: joint pain or swelling. MUSC: No joint swelling, deformity, or tenderness. NEURO: syncope, seizures, peripheral numbness or tingling. BACK: No tenderness to palpation. No flank tenderness. LYMPH: R Submandibular NO L Submandibular NO R Post Auricular NO L Post Auricular NO R Submental NO L Submental NO R Cervical NO L Cervical NO R Supraclavicular NO L Supraclavicular NO R Axillary NO L Axillary NO R Epitroclear NO L Epitroclear NO R Inguinal NO L Inguinal NO R Popliteal NO L Popliteal NO MEDICATIONS: amiodarone (PACERONE) 200 mg tablet amiodarone 200 mg tablet Take 1 tablet by oral route. furosemide (LASIX) 20 mg tablet q 24 HR. spironolactone (ALDACTONE) 25 mg tablet q 24 HR. losartan (COZAAR) 50 mg tablet Take 50 mg by mouth once daily. metoprolol succinate ER (TOPROL XL) 50 mg 24 hr tablet warfarin (COUMADIN) 5 mg tablet 7.5 mg. dofetilide (TIKOSYN) 125 mcg capsule Take 125 mcg by mouth. mexiletine (MEXITIL) 200 mg capsule Take 200 mg by mouth three times daily. 2 caps three times a day oxyCODONE-acetaminop hen (PERCOCET) 5-325 mg tablet traMADol (ULTRAM) 50 mg tablet ALLERGIES: ALLERGIES No Known Allergies PAST MEDICAL HISTORY Diagnosis Date - Lymphoma (HCC) PAST SURGICAL HISTORY Procedure Laterality Date - BONE MARROW ASP BX - HERNIA REPAIR HX - TOTAL HIP REPLACEMENT right No family history on file. SOCIAL HISTORY: Social History Tobacco Use - Smoking status: Never Smoker Substance Use Topics - Alcohol use: Not on file - Drug use: Not on file COUNSELING: I discussed with Tania the natural history, treated course, and prognosis of Diffuse large b-cell lymphoma, unspecified body region (hcc) (primary encounter diagnosis); my impression as well as the rationale, logistics, risks, benefits, and alternatives to the management options noted above; and my recommendations listed below. The patient Tania Venegas verbalized understanding and agreed with these recommendations and plan. I answered all questions satisfactorily.. Derek Pereyra D.O. Medical Oncologist [place], [place] [facility] Referring Provider: SELF [200] Allergies As of Date: 12/09/2019 (No Known Allergies) Date Reviewed: 12/09/2019 Reviewed by: Amber Villatoro - Fully Assessed Reason for Visit: Lymphoma [564] Cmt: 1 year follow up Primary Visit Diagnosis:Diffuse large B-cell lymphoma, unspecified body region (HCC) [C83.30] Order(s):BASIC METABOLIC PNL [SQBMP] Order #: [id number] STANDING CBC + DIFF (FOR REMOTE [facility] USE) [SQRCBCDF] Order #: [id number] STANDING HEPATIC FUNCTION PNL [SQHFP] Order #: [id number] STANDING LD LACTATE DEHYDRO [SQLD6] Order #: [id number] STANDING Prescriptions as of 12/09/2019 Sig: AMIODARONE 200 MG TABLET amiodarone 200 mg tablet Ta* FUROSEMIDE 20 MG TABLET q 24 HR. SPIRONOLACTONE 25 MG TABLET q 24 HR. LOSARTAN 50 MG TABLET Take 50 mg by mouth once michael* METOPROLOL SUCCINATE ER 50 MG* WARFARIN 5 MG TABLET 7.5 mg. DOFETILIDE 125 MCG CAPSULE Take 125 mcg by mouth. MEXILETINE 200 MG CAPSULE Take 200 mg by mouth three ti* OXYCODONE-ACETAMINOP HEN 5 MG-* TRAMADOL 50 MG TABLET Problem List As Of Date 12/09/2019 Noted Resolved Lymphoma [C85.90] 10/20/2012 PTTD (posterior tibial tendon dysfunction) [M76*06/21/2014 Achilles tendon contracture, left [M67.02] 06/21/2014 Valgus deformity of foot [M21.079] 06/21/2014 Encounter Status:Closed by ARON PEREYRA DO on 12/12/19 Normal [facility] Hepatic Functn Panelon 12-09 Albumin [Mass/Vol] 4.1 g/dL Normal 3.9-4.9 [facility] Comment on above: Performed By: #### B MP, HFP, LD6 #### [facility] [address], [place] [address] ALP [Catalytic activity/Vol] 84 U/L Normal 38-113 [facility] Comment on above: Performed By: #### B MP, HFP, LD6 #### [facility] [address] [place], [place] [address] ALT [Catalytic activity/Vol] 8 U/L Low 10-54 [facility] Comment on above: Performed By: #### B MP, HFP, LD6 #### [facility] [address] [place] [address] AST [Catalytic activity/Vol] 24 U/L Normal 14-40 [facility] Comment on above: Performed By: #### B MP, HFP, LD6 #### [facility] [address] [place], [place] [address] Bilirubin [Mass/Vol] 0.2 mg/dL Normal 0.2-1.3 [facility] Comment on above: Performed By: #### B MP, HFP, LD6 #### [facility] [address] [place], [place] [address] Bilirubin,Conjugated <0.2 Normal <0.2 [facility] Comment on above: Performed By: #### B MP, HFP, LD6 #### [facility] [address] [place], [place] [address] Protein [Mass/Vol] 6.8 g/dL Normal 6.3-8.0 [facility] Comment on above: Performed By: #### B MP, HFP, LD6 #### [facility] [address] [place], [place] [address] LDon 12-09-2019 LD 254 U/L High 135-225 [facility] Comment on above: Result Comment: Resu lts may be falsely increased due to interference by hemolysis. Suggest reorder as clinically indicated. Performed By: #### B MP, HFP, LD6 #### [facility] [address] [place], [place] [address] PROGRESSon 12-09-2019 PROGRESS HNO ID: [id number] Author: Aron Pereyra Service: ? Author Type: Physician Type: Progress Notes Filed: 12/12/2019 10:45 AM Note Text: PATIENT NAME: Tania Venegas REFERRING PHYSICIAN: [facility] PRIMARY CARE PHYSICIAN: Oliver Springer Jr, DO CHIEF COMPLAINT: Diffuse large b-cell lymphoma, unspecified body region (hcc) (primary encounter diagnosis) ASSESSMENT/PLAN: (C83.30) Diffuse large B-cell lymphoma, unspecified body region (HCC) (primary encounter diagnosis) Visit (SP) Office on 12/09/19 - BASIC METABOLIC PNL - CBC + DIFF (FOR REMOTE [facility] USE) - HEPATIC FUNCTION PNL - LD LACTATE DEHYDRO - amiodarone (PACERONE) 200 mg tablet - furosemide (LASIX) 20 mg tablet - spironolactone (ALDACTONE) 25 mg tablet No follow-ups on file. 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 He follows with cardiology. Had ablations for afib and pvcs. Diffuse large B-cell lymphoma, The patient has no signs or symptoms or recurrence. I offered to have him continue to follow yearly or follow-up with me only as needed. His primary care provider, Dr. Springer and I communicate regularly regarding many patients. He will continue to follow with his primary care provider for now without oncologic subspecialty routine follow-up. He will call if he develops any concerning symptoms. --- HISTORY OF PRESENT ILLNESS: This is a 54 year old male presents in follow up for lymphoma. He continues to follow with cardiology for his idiopathic cardiomyopathy. He has a defibrillator and pacemaker. He is scheduled for an ablation soon as well. He denies any fevers, chills, night sweats, weight loss. He feels well overall. He was diagnosed and treated for stage I lymphoma in 2006. He was treated surgery, followed by with three cycles of chemo and radiation to cure his disease. December 09, 2019 No fevers. Sweats, chills, no lumps or bumps. No problems eating. Gained wt in last few months. Maybe 20lbs. Vitals: BP 133/88 Pulse 64 Temp 36.7 ?C (98.1 ?F) (Oral) Resp 16 Ht 185.4 cm (6' 0.99 ) Wt 121.1 kg (267 lb) SpO2 99% BMI 35.23 kg/m? Body mass index is 35.23 kg/m?. Body surface area is 2.5 meters squared. REVIEW OF SYSTEMS PHYSICAL EXAM ECOG PS: 0 NEGATIVES POSITIVES NEGATIVES POSITIVES GEN: fevers, sweats, chills. Overall feels well. GEN: Well appearing, alert, in no acute distress, appears stated age SKIN: lesions, rash, itching. SKIN: Normal color, texture, turgor, no rashes or lesions HEENT: significant headaches, changes in hearing, changes in vision, nose bleeds. ENT: No scleral icterus. NECK: Supple, no thyromegaly, no JVD. : dysuria, frequency or incontinence. LYMPH: No cervical, supraclavicular, axillary, inguinal adenopathy. RESP: dyspnea, cough, wheezing. LUNG: Clear to auscultation, no wheezing rales or rhonchi CARD: chest pain, leg swelling, palpitations. HEART: Regular. No murmurs, gallop, or rubs. No ectopy. GI: abdominal pain, nausea, vomiting, diarrhea, constipation, melena, hematochezia. ABDM: Soft. Non-tender. Non-distended. Bowel sounds normal. No masses. No hepatosplenomegaly. HEME: prolonged bleeding, bruising, adenopathy. EXT: No clubbing, cyanosis or edema. MUSC: joint pain or swelling. MUSC: No joint swelling, deformity, or tenderness. NEURO: syncope, seizures, peripheral numbness or tingling. BACK: No tenderness to palpation. No flank tenderness. LYMPH: R Submandibular NO L Submandibular NO R Post Auricular NO L Post Auricular NO R Submental NO L Submental NO R Cervical NO L Cervical NO R Supraclavicular NO L Supraclavicular NO R Axillary NO L Axillary NO R Epitroclear NO L Epitroclear NO R Inguinal NO L Inguinal NO R Popliteal NO L Popliteal NO MEDICATIONS: amiodarone (PACERONE) 200 mg tablet amiodarone 200 mg tablet Take 1 tablet by oral route. furosemide (LASIX) 20 mg tablet q 24 HR. spironolactone (ALDACTONE) 25 mg tablet q 24 HR. losartan (COZAAR) 50 mg tablet Take 50 mg by mouth once daily. metoprolol succinate ER (TOPROL XL) 50 mg 24 hr tablet warfarin (COUMADIN) 5 mg tablet 7.5 mg. dofetilide (TIKOSYN) 125 mcg capsule Take 125 mcg by mouth. mexiletine (MEXITIL) 200 mg capsule Take 200 mg by mouth three times daily. 2 caps three times a day oxyCODONE-acetaminop hen (PERCOCET) 5-325 mg tablet traMADol (ULTRAM) 50 mg tablet ALLERGIES: ALLERGIES No Known Allergies PAST MEDICAL HISTORY Diagnosis Date - Lymphoma (HCC) PAST SURGICAL HISTORY Procedure Laterality Date - BONE MARROW ASP BX - HERNIA REPAIR HX - TOTAL HIP REPLACEMENT right No family history on file. SOCIAL HISTORY: Social History Tobacco Use - Smoking status: Never Smoker Substance Use Topics - Alcohol use: Not on file - Drug use: Not on file COUNSELING: I discussed with Taina the natural history, treated course, and prognosis of Diffuse large b-cell lymphoma, unspecified body region (hcc) (primary encounter diagnosis); my impression as well as the rationale, logistics, risks, benefits, and alternatives to the management options noted above; and my recommendations listed below. The patient Tania Venegas verbalized understanding and agreed with these recommendations and plan. I answered all questions satisfactorily.. Derek Pereyra D.O. Medical Oncologist [facility]. Normal [facility] Remote CBCDIF (for [facility] use o nly)on 12-09-2019 Abs Baso <0.03 Normal 0.00-0.10 [facility] Abs [place] 0.65 k/uL Normal 0.00-0.86 [facility] Abs Neut 3.48 k/uL Normal 1.45-7.50 [facility] Basophils/100 WBC (Bld) 0.3 % Normal [facility] Eosinophils (Bld) [#/Vol] 0.12 10*3/uL Normal 0.00-0.45 [facility] Eosinophils/100 WBC (Bld) 2.0 % Normal [facility] Erythrocyte distribution width (RBC) [Ratio] 15.7 % High 11.5-15.0 [facility] Hematocrit (Bld) [Volume fraction] 38.4 % Low 39.0-51.0 [facility] Hemoglobin (Bld) [Mass/Vol] 12.4 g/dL Low 13.0-17.0 [facility] Lymphocytes (Bld) [#/Vol] 1.59 10*3/uL Normal 1.00-4.00 [facility] Lymphocytes/100 WBC (Bld) 27.1 % Normal [facility] MCH (RBC) [Entitic mass] 27.7 pG Normal 26.0-34.0 [facility] MCHC (RBC) [Mass/Vol] 32.3 g/dL Normal 30.5-36.0 [facility] MCV (RBC) [Entitic vol] 85.7 fL Normal 80.0-100.0 [facility] Monocytes/100 WBC (Bld) 11.1 % Normal C [facility] Neutrophils/100 WBC (Bld) 59.5 % Normal [facility] Platelet mean volume (Bld) [Entitic vol] 9.3 fL Normal 9.0-12.7 [facility] Platelets (Bld) [#/Vol] 196 10*3/uL Normal 150-400 [facility] RBC (Bld) [#/Vol] 4.48 10*6/uL Normal 4.20-6.00 [facility] WBC (Bld) [#/Vol] 5.86 10*3/uL Normal 3.70-11.00 [facility] Cardiovascular Lab Reporton 09-04-2019 Cardiovascular Lab Report [facility] Patient Name: Tania Venegas [facility] MR #: [id number] Physician: Abhijit [facility] Service Date: 09/03/2019 Division of Birthdate: 1965 Cardiology Room #: [facility] Cardiovascular Services [facility] [address] [place] [address] Cardiovascular Laboratory Report INDICATION: The patient is a 54-year-old man with a prior history of coronary artery disease by cardiac catheterization in 2016. He also has a history of dilated cardiomyopathy, and had undergone a SCRAPER TENDER-D placement. He has history of atrial fibrillation status post ablation in 2016 and another ablation in 2017 followed by additional PVC ablation in November 2018, following failure of medical therapy. Most recently he was evaluated because of shortness of breath. A recent cardiac CTA suggested evidence of severe stenosis in the proximal LAD because of that he is referred for cardiac catheterization. PROCEDURES: 1. Right heart catheterization. 2. Bilateral selective coronary angiography. 3. Limited right femoral angiography. METHODS: Procedure was explained to the patient with risks and benefits. He signed informed consent. 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 The right groin area was prepped and draped in usual fashion. Using micropuncture technique, the right common femoral artery was accessed. The inner cannula was advanced. Limited right femoral angiography was performed followed by upsizing to a 6-Malian x 11 cm sheath. Access was obtained using the same technique in the right common femoral vein and a 6-Malian x 11 cm sheath was placed. A 6-Malian Medina catheter was used for right heart catheterization with measurement of pressures and calculation of cardiac output using the estimated Tarun method. Medina catheter was removed. Bilateral selective coronary angiography was then performed using 6-Malian JL4 and JR4 diagnostic catheters. Catheters were removed. Procedure was concluded. He was transferred to the cardiovascular recovery area. The access sheath was removed. Manual compression applied for hemostasis. He will be observed for 6 hours and then discharged to home. TOTAL FLUORO TIME: 6.12 minutes. TOTAL AIR KERMA: 506 mGy. TOTAL CONTRAST VOLUME: 45 mL. HEMODYNAMICS: RA 6, RV 34/4, 8. PA 38/18, mean 27. Pulmonary capillary wedge pressure 15, AO 119/80, mean 97. Cardiac output 7.69. Cardiac index 3.19. PA sat 70%. AO sat 96%. CORONARY ANGIOGRAPHY: This is a right dominant circulation. Left main: This arises from left coronary cusp. It bifurcates into left anterior descending and circumflex vessels. Left main has mild disease. Left anterior descending: This has a 30% ostial and 30% mid irregular stenosis, but otherwise is free of significant disease. Circumflex vessel: This has mild luminal irregularities. Right coronary artery: This arises from the right coronary cusp. It is a large and dominant vessel. It has minimal luminal irregularities throughout its course. Distally, the PLV branch has 20% stenosis. Limited right femoral angiography: This showed access to be in the right common femoral artery with no obstructive lesions noted in the femoral artery was proximal branches. FINDINGS: 1. Mild coronary artery disease. 2. 30% ostial and 30% mid LAD stenosis. 3. 20% stenosis in the proximal segment of the PLV branch of the RCA. 4. Minimal disease in the circumflex vessel. 5. Mildly elevated filling pressures. 6. Normal pulmonary arterial pressures. 7. Preserved cardiac output and cardiac index. 8. Appearance is similar to prior angiography in 2016. RECOMMENDATIONS: 1. Medical therapy for coronary artery disease and systolic heart failure. 2. Follow up in Cardiology Clinic. Electronically Signed by: Abhijit Zelaya M.D. 09/13/2019 06:20 P Abhijit Zelaya M.D. Date Dict: 09/03/2019/10:54 Nikkie/Abhijit Zelaya M.D. Date Trans: 09/04/2019 02:33 Nikkie/richy [id number] cc: Oliver Springer D.O. [address] [place] [address] Normal [facility] CTA HEART-CORONARY/ ARTERY B YPASS GRAFT WITH 3DPPon 08-13-2019 CTA HEART-CORONARY/ ARTERY BYPASS GRAFT WITH 3DPP [facility] Department of Radiology [address] [place] [address] Patient Name: TANIA VENEGAS : 1965 Sex: M Age: Race: White Pt. Location: 30 Patient Status: O Ordered Date: 08/04/2019 10:20:00 AM Completed Date: 08/13/2019 02:29 PM Requesting Provider: VERNON REYNOLDS Attending Provider: VERNON REYNOLDS Report Copy To: OLIVER SPRINGER Signs & Symptoms: I50.30 Unspecified diastolic (congestive) heart failure I10 History: Sharyn Cardiac SS in RIS npc cta/ medicare *er Comments: Exam: CTA HEART-CORONARY/ ARTERY BYPASS GRAFT WITH 3DPP CTA HEART-CORONARY/ ARTERY BYPASS GRAFT WITH 3DPP 08/13/2019 2:29 PM EDT SIGN AND SYMPTOMS: I50.30 Unspecified diastolic (congestive) heart failure I10 TECHNOLOGIST COMMENTS: sob fatigue pt states he has had 2 ablations done already to his heart diastolic heart failure QUESTIONS PER RADIOLOGIST: PROTOCOL: Axial CT angiography images were obtained with IV contrast. CONTRAST: Contrast: OMNIPAQUE 350 (LOCM), 100 milliliter, Intravenous TECHNIQUE: Multidetector CT angiogram was obtained using prospective ECG gating. Imaging was performed from the level of the clavicles to the level of the hemidiaphragms. In order to provide better evaluation of the anatomy and disease process, advanced off-line 3-D post-processing techniques, including were performed. Medication administered in preparation for the examination located in nursing documentation. COMPARISON: December 26, 2016 CORONARY ARTERY ANGIOGRAM FINDINGS: Stenoses are reported as maximum percentage diameter stenosis. Stenosis grading is reported using the following scheme: Normal: no stenosis Mild: 1-49% stenosis Moderate: 50-70% stenosis Severe: >70% stenosis Occluded Dominance of the coronary artery system: co-dominant with normal origins and course. Pacer wires are seen coursing along the right atrium, right ventricle and coronary sinus with associated metallic artifacts. Left Main: The left main is a normal caliber vessel which gives rise to the LAD and circumflex arteries suggestion of small ramus intermedius. The left main with small calcified plaque. No significant stenosis Left Anterior Descending Artery: The proximal left anterior descending artery and first diagonal branch with significant calcified and noncalcified plaque. The mid-distal LAD, D2 and D3 branches with moderate plaque. There is suggestion of severe stenosis in the proximal LAD and moderate stenosis in the mid segment} The ramus intermedius branch with no significant plaque but the artery is very small in caliber. Left Circumflex Artery: The left circumflex artery and its obtuse marginal branches with no significant plaque. No stenosis is appreciated and the vessel terminates as the obtuse marginal branch Right Coronary Artery: The right coronary artery and acute marginal branches with small calcified plaque in the proximal segment. There is moderate calcified plaque in the mid and distal segments with associated moderate stenosis. The vessel terminates as PDA. Cardiac Morphology: The right atrium is normal. The right ventricle is normal. The left atrium is normal with normal 2 pulmonary veins on each side. No significant stenosis at the ostia following prior ablation procedure and left atrial appendage appears unremarkable with no significant filling defects appreciated.. The left ventricle is normal. . The pericardium is normal and there is no pericardial effusion. Cardiac Devices and Indwelling Central Venous Lines: Left subclavian pacer with intact wires similar to prior study EXTRACARDIAC FINDINGS: Other lung findings: Mild bilateral dependent atelectasis. Airway: Normal. Pleura: No pleural effusion, thickening, or pneumothorax. Thoracic aorta and great vessels: Normal in diameter. Pulmonary arteries: Normal. Heart and pericardium: Normal. Lymph nodes: No enlarged thoracic lymph nodes. Thoracic spine: Normal. Chest wall: Normal. Visualized upper abdomen: Small cyst at the dome of the right lobe of the liver. IMPRESSION: 1. Significant calcified plaques within the LAD with severe stenosis in the proximal segment and moderate stenosis in the mid segment.. Mild stenosis in the proximal RCA and moderate stenosis in the mid and distal RCA. No significant stenosis in the left circumflex and obtuse marginal branch 2. Left subclavian pacer with intact wires terminating in the right atrium, right ventricle and coronary sinus with associated metallic artifacts..} 3. Cyst in the dome of the right lobe of the liver. 4. Trim and normal pulmonary veins; 2 on each side without significant stenosis at the ostium following prior ablation procedure Electronically signed by:Rose Cabrera. Transcribed by: [email or web address], User Resident: Electronically Signed by: ROSE CABRERA @ 08/13/2019 09:06 PM Normal [facility] Vital Signs Date Time Vital Sign Value Performing Clinician Facility 09-26-2023 10:35-0400 Diastolic blood pressure 65 mm[Hg] Ajit Hurtado MD Work Phone: [facility] 09-26-2023 10:35-0400 Heart rate 89 /min Ajit Hurtado MD Work Phone: [facility] 09-26-2023 10:35-0400 Systolic blood pressure 101 mm[Hg] Ajit Hurtado MD Work Phone: [facility] 09-26-2023 10:34-0400 Body height 185.4 cm Ajit Hurtado MD Work Phone: [facility] 09-26-2023 10:34-0400 Body mass index (BMI) [Ratio] 34.55 kg/m2 Ajit Hurtado MD Work Phone: [facility] 09-26-2023 10:34-0400 Body weight 118.8 kg Ajit Hurtado MD Work Phone: [facility] 09-26-2023 10:34-0400 Respiratory rate 16 /min Ajit Hrutado MD Work Phone: [facility] 09-26-2023 10:34-0400 SaO2% (BldA) [Mass fraction] 97 % Ajit Hurtado MD Work Phone: 6(285)031-044629 [address] 01-31-2023 08:48-0500 Diastolic blood pressure 68 mm[Hg] Ajit Hurtado MD Work Phone: 1(352)917-068929 [address] 01-31-2023 08:48-0500 Heart rate 72 /min Ajit Hurtado MD Work Phone: 9(768)269-521766 [place] [address] 01-31-2023 08:48-0500 Systolic blood pressure 109 mm[Hg] Ajit Hurtado MD Work Phone: 8(587)339-918466 [place] [address] 01-31-2023 08:47-0500 Body height 185.4 cm Ajit Hurtado MD Work Phone: 5(564)595-428829 [address] 01-31-2023 08:47-0500 Body mass index (BMI) [Ratio] 34.17 kg/m2 Ajit Hurtado MD Work Phone: 4(505)261-647866 [place] [address] 01-31-2023 08:47-0500 Body weight 117.48 kg Ajit Hurtado MD Work Phone: 1(408)167-718066 [place] [address] 01-31-2023 08:47-0500 Respiratory rate 18 /min Ajit Hurtado MD Work Phone: 6(072)468-094366 [place] [address] 01-31-2023 08:47-0500 SaO2% (BldA) [Mass fraction] 97 % Ajit Hurtado MD Work Phone: [facility] 01-10-2023 09:33-0500 Body height 185.4 cm Ajit Hurtado MD Work Phone: [facility] 01-10-2023 09:33-0500 Body mass index (BMI) [Ratio] 33.64 kg/m2 Ajit Hurtado MD Work Phone: 1(984)[phone] [address] 01-10-2023 09:33-0500 Body weight 115.67 kg Ajit Hurtado MD Work Phone: 5(281)151-520729 [address] 08-30-2022 09:25-0400 Diastolic blood pressure 87 mm[Hg] Ajit Hurtado MD Work Phone: 0(127)965-641166 [place] [address] 08-30-2022 09:25-0400 Heart rate 66 /min Ajit Hurtado MD Work Phone: 2(750)790-013766 [place] [address] 08-30-2022 09:25-0400 Systolic blood pressure 135 mm[Hg] Ajit Hurtado MD Work Phone: 4(835)196-658866 [place] [address] 08-30-2022 09:24-0400 Body height 182.9 cm Ajit Hurtado MD Work Phone: 3(443)321-301529 [address] 08-30-2022 09:24-0400 Body mass index (BMI) [Ratio] 34.98 kg/m2 Ajit Hurtado MD Work Phone: 3(563)813-557666 [place] [address] 08-30-2022 09:24-0400 Body weight 116.98 kg Ajit Hurtado MD Work Phone: 3(405)817-676666 [place] [address] 08-30-2022 09:24-0400 Respiratory rate 18 /min Ajit Hurtado MD Work Phone: [facility] 08-30-2022 09:24-0400 SaO2% (BldA) [Mass fraction] 98 % Ajit Hurtado MD Work Phone: 5(243)708-511929 [address] 03-24-2020 13:50-0400 BP Diastolic 88 mm[Hg] Evie Candelaria [facility] 03-24-2020 13:50-0400 BP Systolic 145 mm[Hg] [facility] 03-24-2020 13:50-0400 Pulse (Heart Rate) 64 /min [facility] 03-24-2020 13:50-0400 Pulse Oximetry 100 % [facility] 03-24-2020 13:50-0400 Respiratory Rate 19 /min [facility] 03-24-2020 12:10-0400 Body Temperature 97.7 [degF] [facility] 03-24-2020 06:55-0400 BMI (Body Mass Index) 34.55 kg/m2 [facility] 03-24-2020 06:55-0400 Body weight 118.8 kg [facility] 03-24-2020 06:55-0400 Height 185.4 cm [facility] Encounters Encounter Date Encounter Type Care Provider Facility Start: 01-09-2024 ambulatory OLIVER SPRINGER JR. Fa cility:[facility] Start: 01-09-2024 End: 01-09-2024 Clinical Support Encounter Alexander Cox MD Work Phone: [facility] Comment on above: PVC's (premature nuris tricular contractions) (Primary Dx) Start: 01-09-2024 ambulatory OLIVER SPRINGER JR. Fa cility:[facility] Start: 12-27-2023 Telephone encounter Dax gomes Business Attorney [facility] Comment on above: Outside Medical Bhanu rds Request Start: 11-06-2023 ambulatory Maria Elena Melendrez RN [facility] Start: 09-26-2023 ambulatory OLIVER SPRINGER JR. Fa cility:[facility] Start: 09-26-2023 End: 09-26-2023 Office outpatient visit 25 minutes Ajit Hurtado MD Work Phone: Business Attorney [facility] Comment on above: Chronic systolic hea rt failure (Primary Dx); PVC (premature ventricular contraction); Paroxysmal atrial fibrillation; Coronary artery disease involving [place] coronary artery of [place] heart without angina pectoris Start: 09-04-2023 End: 09-04-2023 ambulatory KELLY TERRA [facility] Start: 07-25-2023 ambulatory OLIVER Gomes ADRIELTANGELA JR. Fa cility:[facility] Start: 07-02-2023 ambulatory OLIVER Kristin GIAN JR. Fa cility:[facility] Start: 06-28-2023 ambulatory OLIVER Kristin GIAN JR. Fa cility:[facility] Start: 06-05-2023 End: 06-05-2023 [facility]ulatory [facility] Start: 05-31-2023 ambulatory [facility] cility:[facility] Start: 05-23-2023 ambulatory [facility] Start: 05-23-2023 ambulatory [facility]ility:[facility] Start: 05-03-2023 ambulatory [facility]ility:[facility] Start: 04-04-2023 ambulatory [facility]ility:[facility] Start: 03-25-2023 End: 04-24-2023 ambulatory SHAIKH Dereck GARCÍA Facility:H1 Start: 03-07-2023 ambulatory [facility]ility:[facility] Start: 02-25-2023 End: 03-22-2023 ambulatory SHAIKH Dereck GARCÍA Facility:[facility]1 Start: 02-07-2023 ambulatory [facility] cility:[facility] Start: 01-31-2023 ambulatory [facility] cility:[facility] Start: 01-31-2023 End: 01-31-2023 Office outpatient visit 25 minutes Ajit Hurtaod MD Work Phone: [facility] Comment on above: Chronic systolic hea rt failure (Primary Dx); PVC (premature ventricular contraction); Paroxysmal atrial fibrillation; Coronary artery disease involving united [place] coronary artery of united [place] heart without angina pectoris Start: 01-23-2023 End: 02-22-2023 ambulatory SHAIKH Dereck GARCÍA Facility:[facility]1 Start: 01-10-2023 End: 01-10-2023 Subsequent hospital visit by physician Ajit Hurtado MD Work Phone: [facility] Start: 01-10-2023 End: 01-10-2023 Subsequent hospital visit by physician Ajit Hurtado MD Work Phone: Cardiovascular Imaging Lab [facility] Comment on above: Arrived Start: 12-26-2022 End: 01-23-2023 ambulatory NOWAK H FAWWAD Facility:H1 Start: 12-25-2022 End: 12-25-2022 ambulatory MARIOLA YU [facility] Start: 12-12-2022 End: 12-12-2022 ambulatory KELLY ELLISON [facility] Start: 11-26-2022 End: 12-26-2022 ambulatory NOWAK H FAWWAD Facility:[facility]1 Start: 11-07-2022 End: 11-07-2022 Subsequent hospital visit by physician Alexander Cox MD Work Phone: [facility]ostics Lab Comment on above: Arrived Start: 10-25-2022 End: 11-25-2022 ambulatory NOWAK H FAWWAD Facility:[facility]1 Start: 09-25-2022 End: 10-24-2022 ambulatory NOWAK H FAWWAD Facility:[facility]1 Start: 09-19-2022 End: 09-20-[address] DOCTOR MINAYA Facility:[facility]1 Start: 08-30-2022 End: 08-30-2022 Office outpatient visit 25 minutes Ajit Hurtado MD Work Phone: [facility] Comment on above: Chronic systolic hea rt failure (Primary Dx); Paroxysmal atrial fibrillation; PVC (premature ventricular contraction); Coronary artery disease involving united [place] coronary artery of united [place] heart without angina pectoris Start: 08-26-2022 End: 09-24-2022 ambulatory NOWAK H FAWWAD Facility:[facility]1 Start: 07-26-2022 End: 08-25-2022 ambulatory NOWAK H FAWWAD Facility:[facility]1 Start: 06-25-2022 End: 07-25-2022 ambulatory NOWAK H FAWWAD Facility:[facility]1 Start: 06-01-2022 End: 06-02-2022 ambulatory Delmy Frey RN [facility] Start: 05-25-2022 End: 06-22-2022 ambulatory NOWAK H FAWWAD Facility: Start: 08-24-2021 End: 08-24-2021 Subsequent hospital visit by physician [facility] Work Phone: [facility] Comment on above: Canceled (Cancel Shelli son Not Listed - Please provide detailed information) Start: 03-24-2020 End: 03-24-[address] [facility] Start: 03-24-2020 End: 03-24-2020 Subsequent hospital visit by physician Evie Candelaria Work Phone: [facility] Comment on above: Ankle arthritis (Milvia mai Dx) Start: 03-23-2020 End: 03-23-[address] [facility] Start: 12-24-2019 End: 12-27-2019 Patient encounter procedure [facility] Start: 12-24-2019 End: 12-26-2019 Subsequent hospital visit by physician Dolores [address] [facility] Radiology Comment on above: Left hip pain Start: 12-24-2019 End: 12-27-2019 Patient encounter procedure [facility] Start: 12-24-2019 End: 12-26-2019 Subsequent hospital visit by physician Oliver Springer DO Work Phone: [facility]iology Start: 09-03-2019 End: 09-04-2019 Patient encounter procedure PROVIDER UNKNOWN Facility:[facility] Procedures Date Procedure Procedure Detail Performing Clinician Start: 11-05-2023 BNP, MANUAL ENTER Sandi Hurtado MD Work Phone: Start: 11-05-2023 CHEM 7 PANEL, MANUAL ENTER Ajit Hurtado MD Work Phone: Start: 11-05-2023 ESTIMATED GFR, NON A FRICAN AMER, MANUAL ENTER Ajit Hurtado MD Work Phone: Start: 01-10-2023 DEVICE EVALUATION Other Other Start: 01-10-2023 Cardiopulmonary exer cise testing Jone Davenport MD Work Phone: Start: 11-07-2022 Spmtry w/vc expirato ry ivan w/wo mxml vol vntj Alexander Cox MD Work Phone: Start: 06-08-2022 DEVICE EVALUATION Other Other Start: 06-01-2022 ANION GAP, MANUAL ENTER Historical Provider Start: 06-01-2022 CHEM 7 PANEL, MANUAL ENTER Historical Provider Start: 06-01-2022 ESTIMATED GFR, MANUAL ENTER Historical Provider Start: 03-24-2020 SCAN OTHER ORDERS Provi arash Not In System Start: 03-24-2020 INR in Platelet poor plasma by Coagulation assay Evie Candelaria Work Phone: Start: 02-18-2020 SCAN OTHER ORDERS Provi arash Not In System Start: 12-24-2019 Radex hip unilateral with pelvis 2-3 views [place] [facility] Start: 12-24-2019 Radex spine lumbosac ral minimum 4 views [place] [facility] Start: 12-24-2019 End: 12-24-2019 Radex hip unilateral with pelvis 2-3 views Ny Dykes Pocos DO Work Phone: Plan of Treatment Date Care Activity Detail Author Start: 01-14-2025 End: 01-14-2025 Patient encounter procedure 01/14/2025 10:30 AM EST Office Visit [facility] [address] [place] [phone] Alexander Cox MD [address] [place] [phone] [facility] Start: 11-05-2024 Potassium [Moles/volume] in Serum or Plasma POTASSIUM U [facility] Start: 07-09-2024 End: 07-09-2024 Patient encounter procedure 07/09/2024 1:30 PM EDT [facility] [address] [place] [address] [facility] Start: 04-09-2024 End: 04-09-2024 Patient encounter procedure 04/09/2024 11:30 AM EDT Office Visit [facility] [address] [place] [phone] Ajit Hurtado MD [address] [place] [phone] [facility] Start: 01-09-2024 End: 01-09-2024 Patient encounter procedure [facility] Start: 11-28-2023 End: 11-28-2023 Patient encounter procedure [facility] Start: 09-26-2023 End: 09-26-2024 CHEM 6 (LYTES, BUN CREA) CHEM 6 (LYTES, BUN CREA) Lab Routine Chronic systolic heart failure Expected: 09/26/2023, Expires: 09/26/2024 [facility] Comment on above: Expected: 09/26/2023, Expires: Start: 09-26-2023 End: 09-26-2024 Natriuretic peptide B [Mass/volume] in Blood B-TYPE NATRIURETIC PEPTIDE (BRAIN) Lab Routine Chronic systolic heart failure Expected: 09/26/2023, Expires: 09/26/2024 [facility] Comment on above: Expected: 09/26/2023, Expires: Start: 08-01-2023 End: 08-01-2023 Patient encounter procedure 08/01/2023 Office Visit Cardiovascular Medicine Ajit Hurtado MD [address] [place] [phone] [facility] Start: 07-26-2023 COVID-19 VACCINE ( season) COVID-19 VACCINE ( season) [facility] Start: 07-26-2023 Influenza vaccination INFLUENZA VACCINE (#1) [facility] Start: 05-08-2023 End: 05-08-2023 Patient encounter procedure 05/08/2023 Office Visit Pharmacy [facility] Start: 01-17-2023 End: 01-17-2023 Patient encounter procedure 01/17/2023 Office Visit Cardiovascular Medicine Ajit Hurtado MD [address] [place] [phone] [facility] Start: 01-10-2023 End: 01-10-2023 Patient encounter procedure 01/10/2023 Office Visit Electrophysiology Alexander Cox MD [address] [place] [phone] [facility] Start: 01-10-2023 End: 01-10-2023 Patient encounter procedure 01/10/2023 Appointment Echocardiography Ajit Hurtado MD [address] [place] [phone] [facility] Start: 11-07-2022 End: 11-07-2022 Patient encounter procedure [facility] Start: 08-30-2022 End: 08-30-2023 Cardiopulmonary exercise test FUNCTIONAL VO2 TESTING Stress Echocardiography Routine Chronic systolic heart failure Expected: 08/30/2022, Expires: 08/30/2023 [facility] Comment on above: Expected: 08/30/2022, Expires: 3 Start: 08-30-2022 End: 08-30-2023 CHEM 6 (LYTES, BUN CREA) CHEM 6 (LYTES, BUN CREA) Lab Routine Chronic systolic heart failure Expected: 08/30/2022, Expires: 08/30/2023 [facility] Comment on above: Expected: 08/30/2022, Expires: 3 Start: 08-30-2022 End: 08-30-2022 Patient encounter procedure 08/30/2022 Office Visit Cardiovascular Medicine Ajit Hurtado MD [address] [place] [phone] [facility] Start: 07-26-2022 Influenza vaccination INFLUENZA VACCINE (#1) [facility] Start: 12-24-2019 Annual Wellness Visit (AWV) Annual Wellness Visit (AWV) [facility] Phone: Start: 07-26-2019 Influenza vaccination Flu vaccine (#1) [facility] Phone: Start: 07-26-2019 Influenza vaccination given Sequential Influenza Vaccine (#1) [facility] Start: 2015 Administration of herpes zoster vaccine Zoster Vaccines (1 of 2) [facility] Start: 2015 Colon cancer screen colonoscopy Colon cancer screen colonoscopy [facility] Phone: Start: 2015 Prostate specific antigen measurement PROSTATE CANCER SCREENING DISCUSSION [facility] Start: 2015 Shingles Vaccine (1 of 2) Shingles Vaccine (1 of 2) [facility] Phone: Start: 2015 Zoster vaccine hzv live for subcutaneous use ZOSTER (SHINGLES) VACCINE (1 of 2) [facility] Start: 2010 Colonoscopy COLORECTAL CANCER SCREENING DISCUSSION [facility] Start: 2010 Screening for malignant neoplasm of colon COLORECTAL CANCER SCREENING DISCUSSION [facility] Start: 2005 Fasting lipid profile LIPID SCREENING [facility] Start: 2005 Lipid panel LIPID SCREENING [facility] Start: 2005 Lipid screen Lipid screen [facility] Phone: Start: 1984 Hepatitis B vaccination HEP B VACCINE (1 of 3 - 19+ 3-dose series) [facility] Start: 1984 Third diphtheria, tetanus and acellular pertussis (DTaP) vaccination TDAP (ADULT) [facility] Start: 1983 Tetanus vaccination TETANUS [facility] Start: 1980 HIV screen HIV screen [facility] Phone: Start: 1980 HIV screening HIV SCREENING DISCUSSION [facility] Start: 1976 DTaP/Tdap/Td vaccine (1 - Tdap) DTaP/Tdap/Td vaccine (1 - Tdap) [facility] Phone: Start: 1968 History and physical examination, annual for health maintenance Wellness Visit [facility] Start: 03-02-1966 COVID-19 VACCINE (#1) COVID-19 VACCINE (#1) [facility] Start: 1965 Hepatitis B vaccination HEP B VACCINE (1 of 3 - 3-dose series) [facility] Start: 1965 Hepatitis C antibody, confirmatory test [facility] Start: 1965 Hepatitis C screen Hepatitis C screen [facility] Phone: Start: 1965 Hepatitis C screening HEPATITIS C VIRUS SCREENING [facility] Start: 1965 Prostate specific antigen measurement PSA Level [facility] Start: 1965 Screening for malignant neoplasm of colon Colorectal Cancer Screening: Colonoscopy [facility] Start: 1965 Tetanus vaccination [facility] Measurement of respiratory function PFT STANDARD PFT Routine Encounter for long-term (current) use of high-risk medication PVC's (premature ventricular contractions) Encounter for long-term (current) use of medications 11/07/2022 2:40 PM EST [facility] Payers Date Payer Category Payer Medicare [id number] 2019 Medicare xxxxxxx [id number] 2019 Unknown [id number] 1965 Unknown [id number] 2.16.84 0.1.273712.3.579.2.174 1965 Unknown [id number] 2.16.84 0.1.222629.3.579.2.174 1965 Unknown [id number] 2.16.84 0.1.459269.3.579.2.174 1965 Unknown [id number] 2.16.8 40.1.319636.3.579.2.902 1965 Unknown [id number] 2.16.8 40.1.086173.3.579.2.902 1965 Unknown [id number] 2.16.8 40.1.975315.3.579.2.647 1965 Unknown [id number] 2.16.84 0.1.660437.3.579.2.593 1965 Unknown [id number] 2.16.84 0.1.245990.3.579.2.593 1965 Unknown [id number] 2.16.84 0.1.315847.3.579.2.593 1965 Unknown [id number] 2.16.84 0.1.743400.3.579.2.593 1965 Unknown [id number] 2.16.84 0.1.836769.3.579.2.593 1965 Unknown [id number] 2.16.84 0.1.368262.3.579.2.593 1965 Unknown [id number] 2.16.84 0.1.785785.3.579.2.593 1965 Unknown [id number] 2.16.84 0.1.808265.3.579.2.593 1965 Unknown [id number] 2.16.84 0.1.339469.3.579.2.593 1965 Unknown [id number] 2.16.84 0.1.548418.3.579.2.593 1965 Unknown [id number] 2.16.84 0.1.628416.3.579.2.593 1965 Unknown [id number] 2.16.84 0.1.104682.3.579.2.593 1965 Unknown [id number] 2.16.84 0.1.028926.3.579.2.593 1965 Unknown [id number] 2.16. 840.1.771678.3.579.2.594 1965 Unknown [id number] 2.16. 840.1.414809.3.579.2.594 1965 Unknown [id number] 2.16. 840.1.362787.3.579.2.594 1965 Unknown [id number] 2.16. 840.1.143699.3.579.2.594 1965 Unknown [id number] 2.16. 840.1.814082.3.579.2.594 1965 Unknown [id number] 2.16. 840.1.125920.3.579.2.594 1965 Unknown [id number] 2. 840.1.267743.3.579.2.594 1965 Unknown [id number] 2.16. 840.1.647703.3.579.2.594 1965 Unknown [id number] 2.16. 840.1.073827.3.579.2.594 1965 Unknown [id number] 2.16. 840.1.175488.3.579.2.594 1965 Unknown [id number] 2.16 840.1.825415.3.579.2.594 1965 Unknown [id number] 2.16. 840.1.012922.3.579.2.594 1965 Unknown [id number] 2.16. 840.1.409978.3.579.2.594 1965 Unknown [id number] 2.16. 840.1.935487.3.579.2.594 1965 Unknown [id number] 2.16. 840.1.360182.3.579.2.594 1959 Medicare [id number] Medicare [id number] Unknown [id number] Social History Date Type Detail Facility Start: 03-23-2020 End: 05-23-2023 Tobacco smoking status NHIS Never smoker [employer] Phone: Start: 03-23-2020 End: 01-31-2023 Alcohol intake Current drinker of alcohol (finding) [facility] Start: 1965 Sex Assigned At Not on file [facility] Phone: Start: 05-09-2017 End: 05-23-2023 Tobacco use and exposure Smokeless tobacco non-user [facility] Start: 07-21-2020 History SDOH Alcohol Frequency 2 [facility] Start: 05-02-2022 History SDOH Alcohol Comment occasional [facility] Start: 06-29-2021 End: 09-26-2023 Alcohol intake [facility] Start: 10-28-2022 End: 01-31-2023 Exposure to SARS-CoV-2 (event) Not sure [facility] Start: 09-26-2023 Alcohol intake Ex-drinker (finding) [facility] Start: 07-21-2020 End: 09-26-2023 Alcohol Use Disorder Identification Test - Consumption [AUDIT-C] [facility] How often to you hav e a drink containing alcohol? Monthly or less [facility] Average Number of Drinks Not on file [facility] Start: 09-26-2023 Alcohol Comment occasionally few beers-not weekly [facility] Gender identity Identifies as micha fleming gender (finding) [facility] Medical Equipment Procedure Code Equipment Code Equipment Origin al Text Equipment Identifier Dates Filler 10cc Bone Void Cerament - [id number] Start: 03-24-2020 Screw 3.5 X 30mm Non Lock Ti Alloy Motoband Cp - [id number] Start: 03-24-2020 Bioactive Bone G raft Putty 7.5cc [id number] Start: 03-24-2020 Screw 7 X 55 X 1 6mm Umesh Headed Short Thrd Unite - [id number] Start: 03-24-2020 Plate 18mm Z Bet a Motoband Max - [id number] Start: 03-24-2020 Dynaforce Plate Sterile Instrument Kit [id number] Start: 03-24-2020 Kit 18 X 18 X 18 mm Superelastic Motoclip Himax - [id number] Start: 03-24-2020 Screw 4.5 X 50mm Umesh Headed Unite - [id number] Start: 03-24-2020 4 Screws And 2 Wedges [id number] Start: 03-24-2020 Comment on above: Description: Brandon n calcaneus 5 Screws And 1 Plate [id number] Sta rt: 03-24-2020 Comment on above: Description: Brandon n Clinical Notes 06-01-2022 to 12-27-2023 Telephone Encounter - Yulissa Arenas - 12/27/2023 1:34 PM ESTTelephone Encounter - Yulissa Arenas - 12/27/2023 1:34 PM ESTTelephone Encounter - aDx Estrada - 12/27/2023 10:54 AM EST Note Date & Type Note Facility 12-27-2023 Telephone encounter Note Received recent pacemaker check. Routing to Lana Brown and [facility]. [facility] 12-27-2023 Miscellaneous Notes Received recent pacemaker check. Routing to Lana Brown and [facility]. Received a call from Dr. Abhijit Zelaya office letting me know that pt has not been seen at the office since 2020 and that he is monitored by [facility] medical Care on his home monitor. Called and spoke with Carmela and she will work on getting the recent check faxed to us shortly. ----- Message from Dax Estrada sent at 12/27/2023 8:37 AM EST ----- Called and LM with device clinic asking them to fax the recent pacemaker check. Left call back and fax numbers. [place] ----- Message ----- From: Annemarie Anne Sent: 12/26/2023 3:54 PM EST To: Ross Acc Ep Oa Pool DR. Cox Apt 01/09/24 Patient is inactive with our clinic Following Provider: Dr. Abhijit Zelaya [phone] documented in this encounter [facility] 12-27-2023 Telephone encounter Note Received a call from Dr. Abhijit Zelaya office letting me know that pt has not been seen at the office since 2020 and that he is monitored by [facility] medical Care on his home monitor. Called and spoke with Carmela and she will work on getting the recent check faxed to us shortly. [facility] 12-27-2023 Telephone encounter Note ----- Message from Dax Estrada sent at 12/27/2023 8:37 AM EST ----- Called and LM with device clinic asking them to fax the recent pacemaker check. Left call back and fax numbers. [place] ----- Message ----- From: Annemarie Anne Sent: 12/26/2023 3:54 PM EST To: Ross Acc Ep Oa Pool DR. Cox Apt 01/09/24 Patient is inactive with our clinic Following Provider: Dr. Abhijit Zelaya [phone] [facility] 11-06-2023 Telephone encounter Note Images from the original note were not included. MD Maria Elena Daniel RN; P [facility] Heart Failure Nurse Pool Caller: Unspecified (Today, 10:59 AM) Thanks, labs look good with med changes last visit. LVM with the above message and stated he could call back if he had any questions. [facility] 11-06-2023 Miscellaneous Notes Images from the original note were not included. MD Maria Elena Daniel RN; [facility] Heart Failure Nurse Pool Caller: Unspecified (Today, 10:59 AM) Thanks, labs look good with med changes last visit. LVM with the above message and stated he could call back if he had any questions. Received fax from [facility] with outside lab orders. Manually entered. Forwarded in outlook to [facility]. Routed to Dr. Hurtado for review. documented in this encounter [facility] 11-06-2023 Telephone encounter Note Received fax from [facility] with outside lab orders. Manually entered. Forwarded in outlook to [facility]. Routed to Dr. Hurtado for review. [facility] 09-26-2023 History of Presen t illness Narrative Tania Venegas is a 58 y.o. 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 PCP: Dr. Oliver Springer; Cardiology: Dr. Abhijit Zelaya ([facility]); Brooke () HPI: Tania Venegas is a 58 y.o. male with a hx as outlined below. He followed with anti-arrhythmic clinic and had PFTs done which showed improvement in DLCO to normal range. He followed with Dr. Cox in December and his amiodarone was decreased to 100mg daily for possible intolerance (fatigue) and he ordered a MCT which is still pending and decreased his rate response Today he had to restart lasix about 2 wks ago for GRAF and at times at rest. Symptoms have improved with lasix 40 mg about 3 days a week. Good appetite and no issues. 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 He otherwise denies dyspnea with daily activity, no chest pain/pressure/discomfort, orthopnea, no PND, stable peripheral edema, no nausea/vomiting, appetite is good, does report some abdominal bloating. He uses CPAP nightly for 4-6 hrs, sometimes sleeps with it all night. He has minimal orthostatic lightheadedness, no syncope. BP: usually 90-100/70s. PMH: 1. Chronic systolic heart failure, anthracycline toxicity, diagnosed 2015 with PVCs and bradycardia -SCRAPER TENDER-D: reduced BiV pacing due to PVCs -VO2 01/17: peak VO2 20 (77%), RER 1.2, VE/VCO2 30, 8 mets. -Echo 11/2021: LVEF 25-30%, Grade 2 diastolic dysfunction, YNES, mild MR/TR, RVSP 40 mmHg -Echo 06/2019: LVEF 30-35% -LHC around 2016 ([facility]): no CAD -LHC 09/03/2019 ([facility]): mild non-obstructive CAD -[facility] 09/03/2019 ([facility]): RA 6, PA 38/18 (29) PCWP 18, CI: 3.1 2. Afib -2016 Afib ablation c/b perforation -Cryo + CTI 06/2017 -Repeat CTI ablation 12/2020 3. HTN 4. PVC - Follows with EP -Unsuccessful ablation due to epicardial location -anti-arrhythmics: mexilitine tried with amiodarone without benefit. Switched to ranolazine and amiodarone. -MCT 01/17 pending 5. Non-Hodgkins lymphoma 2007, s/p anthracycline 6. BRANNON on CPAP, RLS 7. Morbid obesity 8. Non-obstructive CAD -Cath 08/2019 with mild CAD- 30% ostial and 20% mLAD, Family/Social Hx as documented in EMR reviewed with patient. Current Outpatient Medications Medication Sig AMIOdarone 200 MG tablet Take 0.5 tablets by mouth daily. aspirin 81 MG Chew Tab chewable tablet Chew 1 tablet daily. Entresto 49-51 MG tablet 0.5 tab two times daily eplerenone 25 MG tablet Take 1 tablet by mouth daily. furOSEmide 40 MG tablet Take 1 tablet by mouth daily as needed. metoprolol succinate 50 MG tablet XL 50mg QAM + 25mg QPM rosuvastatin 10 MG tablet Take 1 tablet by mouth daily. warfarin 5 MG tablet Take 1 tablet by mouth every evening at 6 PM. INR managed at [facility] Review of Systems A complete review of systems was performed and positive for symptoms mentioned in the history of present illness. The remainder of system review was negative. Physical Exam BP 101/65 (BP Location: Left arm, BP Position: Standing) Pulse 89 Resp 16 Ht 1.854 m (6' 1 ) Wt 118.8 kg (261 lb 14.4 oz) SpO2 97% BMI 34.55 kg/m Smoking Status Never Body mass index is 34.55 kg/m . General/Constitutional: Well developed, well nourished male, who looks their stated age of 58 y.o.. No acute distress. HEENT: No xanthelasma. Neck: Supple, non-tender. No thyromegaly or carotid bruits. Cardiac: Regular rate and rhythm with a couple extra heart sounds. Normal S1, S2. No murmurs, rubs or gallops. JVP ~ 8cm w/ HJR. Pulmonary/Chest: Lungs are clear to ascultation bilaterally. No wheezes, rhonchi or rales noted. Abdominal: Soft, non-tender, non-distended. No organomegaly. Musculoskeletal: Normal range of motion in all four extremities, with normal strength equally and symmetrically. No cyanosis or clubbing, trivial pre-tibial edema. Periperal Vascular Exam: Normal radial, posterior tibial arterial pulses. Neurological: No focal neurologic deficit. Skin: Skin is warm and dry. He is not diaphoretic. Psychiatric: Appropate mood and affect for his clinical situation. Affect normal. Mental Status: Alert and oriented to person, place and time. Database: Lab Results Component Value Date WBC 8.46 01/19/2021 WBC 6.66 12/10/2018 HGB 13.1 (L) 11/07/2022 HGB 13.4 12/10/2018 HCT 39.9 01/19/2021 HCT 40.7 12/10/2018 PLATELET 203 01/19/2021 PLATELET 220 12/10/2018 MCV 90.7 01/19/2021 MCV 86.6 12/10/2018 Lab Results Component Value Date BNP 201 (H) 01/04/2022 No results found for: CHOLESTEROL , TRIG , HDL Lab Results Component Value Date SODIUM 137 09/19/2022 POTASSIUM 4.6 05/23/2023 CHLORIDE 101 09/19/2022 CO2 28.9 09/19/2022 BUN 17.0 09/19/2022 CREATSERUM 1.15 09/19/2022 Guideline Directed Medical HF Therapy: ACEI / ARB / ARNI: entresto 1/2 tab 49-51 mg BID Beta ashley: toprol XL 50/25 AM/PM Aldosterone antagonist: eplerenone 25mg daily SGLT-2i: none - nausea with jardiance and farxiga expensive Ivabradine: no SCRAPER TENDER: yes ICD: yes CardioMEMS: no Other: amiodarone 100mg, crestor 10mg, coumadin. Assessment/Plan: Thus, in summary, is a 58 y.o. male with a hx of non-ischemic cardiomyopathy (LVEF 20-25%), PVC, hx of non-hodgkin's lymphoma s/p anthracycline chemo 2007 being managed today for the following issues: 1.) Non-ischemic cardiomyopathy / chronic systolic heart failure: NYHA Class IIb, ACC/AHA class C, and clinical class A (warm and euvolemic). Sxs stable. VO2 done last month with pVO2 20 (77% predicted), VE/VCO2 30 - improvement from the one at [facility] in April 2022. - GDMT: continue entresto 1/2 49-51 mg bid, toprol, and eplerenone, lasix 40 mg every other day but we will increase to every day. Follow-up chem 6 next week with this change. Given orthostatic/lightheaded sxs with lower BP's will not increase GDMT further. Not on SGLT2i due to nausea with jardiance and farxiga too expensive (100/month). - Encouraged to check BP regularly. - Advance therapies - tolerating medications currently with good VO2 in 01/17. Will not pursue testing right now. From a fatigue standpoint, need MCT follow up to see if related to PVCs 2.) PVC: Follows with EP. Unsuccessful ablation due to epicardial location, high risk to re-attempt. On anti-arrhythmic medications - amiodarone only, unable to afford ranolazine. PFTs repeated in Oct 2022 with normal DLCO. -He has EP follow up in Dec. I will contact Dr. Cox regarding plans for PVC ablation and MCT result from 01/17. 3.) Non-obstructive CAD: Stable. 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 On rosuvastatin 10mg daily - due to hx of muscle cramps with lipitor 4.) Paroxysmal afib s/p ablation. On toprol XL and coumadin. In SR today on exam. 5.) BRANNON: using CPAP regularly and notices improvement in daytime fatigue when using it all night. Thank you for the opportunity to participate in the care of your patient. We will continue to follow him in our Advanced Heart Failure Clinic along with you with plans to see him back in 6 months. Ajit Hurtado M.D. Professor of Clinical Internal Medicine Advanced Heart Failure and Transplant Program [facility] [email or web address] ph [phone] fax [phone] Patient Education Patient education regarding the following topic(s) was provided on 09/26/2023: Recommendations from Dr Hurtado at your office appt today at [place] [facility]: Take lasix (furosemide) 40mg daily Labs next week Continue other current medications Return appt Dr Hurtado in 6 months Your after visit summary (AVS) is viewable in [facility] My Chart. Call RN if you have cardiac questions/concerns M-F 8 to 4:30 ; office # [phone], option 6, then option 2. Guidelines for home management: 1. Continue to monitor weight first thing each morning. 2. Report to the CHF CLINIC ([phone]) any significant weight change. Remember that weight change of 2-3 lbs. in 1 day or 5 lbs in a week is significant and likely represents changes in fluid status. 3. If you are taking a diuretic (such as lasix, demadex, bumex), you should also restrict all sodium intake to 2000 milligrams (2 grams) a day. Depending on your status, you may also be asked to restrict fluid intake to no more than 64 oz/2 Liters a day. If uncertain, ask the nurse or physician. 4. Regular aerobic exercise is encouraged 30 minutes a day (walking, bike, swimming, etc.). For specific exercise recommendations, ask your physician. 5. Report to CHF CLINIC any change in symptoms (chest pain, worsening shortness of breath, increased dizziness or passing out, increased palpitations or ICD shock, trouble catching breath while lying down, increased edema or abdominal bloating). Remember that even minor changes in symptoms may be important. Also report any changes in medications including over the counter medications. 6. DO NOT take NSAID's for pain (i.e, Advil, Aleve, Motrin, ibuprofen, and many more) since these may cause serious problems in those with a history of CHF. If uncertain about the medication, call us. 7. * If you have new significant or ongoing diarrhea or vomiting, please hold your diuretic (examples: furosemide/Lasix or torsemide/Demadex) and call our clinic for further instructions. Taking a diuretic (water pill) with these symptoms can worsen dehydration. If you decide to have labs/tests run outside of the [facility] and you do not hear from us 1-2 days after they are performed, you must call us to ensure we received the results. Office fax # [phone]. No news does not necessarily mean that your tests are normal, it could mean we did not get the results. For questions/updates: please provide your name with spelling, date of and question or update All calls are prioritized and responses researched, if possible, prior to calls being returned. Call Scheduling for any appointment/procedure verification or changes [phone], option [address] [facility] Heart Schedulers at [phone], option 1. Those in attendance for the education included: patient and spouse. Barriers in providing the education included: none. The following methods were used in providing the education: explanation and handout. [facility] handouts given included: After visit summary and lab orders. The response of those in attendance was: states/identifies education topic. The following Clinical Intervention(s) occurred during today s visit: Orthostatic or Coarctation vital signs completed and Extensive teaching provided to patient and or support team regarding medication, labs documented in this encounter [facility] 09-26-2023 Instructions Jovita Cerda RN - 09/26/2023 11:30 AM EDT Recommendations from Dr Hurtado at your office appt today at [facility]: Take lasix (furosemide) 40mg daily Labs next week Continue other current medications Return appt Dr Hurtado in 6 months Your after visit summary (AVS) is viewable in [facility] My Chart. Call RN if you have cardiac questions/concerns M-F 8 to 4:30 ; office # [phone], option 6, then option 2. Guidelines for home management: 1. Continue to monitor weight first thing each morning. 2. Report to the CHF CLINIC ([phone]) any significant weight change. Remember that weight change of 2-3 lbs. in 1 day or 5 lbs in a week is significant and likely represents changes in fluid status. 3. If you are taking a diuretic (such as lasix, demadex, bumex), you should also restrict all sodium intake to 2000 milligrams (2 grams) a day. Depending on your status, you may also be asked to restrict fluid intake to no more than 64 oz/2 Liters a day. If uncertain, ask the nurse or physician. 4. Regular aerobic exercise is encouraged 30 minutes a day (walking, bike, swimming, etc.). For specific exercise recommendations, ask your physician. 5. Report to CHF CLINIC any change in symptoms (chest pain, worsening shortness of breath, increased dizziness or passing out, increased palpitations or ICD shock, trouble catching breath while lying down, increased edema or abdominal bloating). Remember that even minor changes in symptoms may be important. Also report any changes in medications including over the counter medications. 6. DO NOT take NSAID's for pain (i.e, Advil, Aleve, Motrin, ibuprofen, and many more) since these may cause serious problems in those with a history of CHF. If uncertain about the medication, call us. 7. * If you have new significant or ongoing diarrhea or vomiting, please hold your diuretic (examples: furosemide/Lasix or torsemide/Demadex) and call our clinic for further instructions. Taking a diuretic (water pill) with these symptoms can worsen dehydration. If you decide to have labs/tests run outside of the [facility] and you do not hear from us 1-2 days after they are performed, you must call us to ensure we received the results. Office fax # [phone]. No news does not necessarily mean that your tests are normal, it could mean we did not get the results. For questions/updates: please provide your name with spelling, date of and question or update All calls are prioritized and responses researched, if possible, prior to calls being returned. Call Scheduling for any appointment/procedure verification or changes [phone], option 7 or [facility] Schedulers at [phone], option 1. documented in this encounter [facility] 09-04-2023 Note EKG today Bi-V paced Continue amiodarone 100 mg daily and warfarin anticoagulation F/U with Dr Harrell- [facility] 09-04-2023 Note [facility] II-III c- curre ntly appears fluid overloaded, + BLE edema, GRAF and reduced exercise tolerance r/t GRAF and fatigue. Continue GDMT- continue ASA, toprol, eplerenone, crestor and entrestol Diuretic therapy- Prn script for lasix 40 mg 1 tab daily x 2-3 days provided Will send pt for labs today and repeat echocardiogram. Pt scheduled for f/u with [facility] cardiology within the month Monitor daily weights, I&O, fluid restriction 1.5-2L/day, renal function and electrolytes- please maintain K+>4 and Mg > 2 [facility] 09-04-2023 Note Patient here for 9 m o follow up chronic systolic heart failure, PAF, and PVC's. Follows with Dr. Cox at [facility]. C/o noticeable SOB w/wo exertion. Denies chest pain and bleeding on warfarin. He has an apt in Nov with the heart failure clinic at [facility]. Has not been taking Crestor. Review of Systems Constitutional: Positive for malaise/fatigue. Cardiovascular: Positive for dyspnea on exertion and leg swelling. Respiratory: Positive for shortness of breath. Musculoskeletal: Positive for arthritis, back pain, joint pain and myalgias. Neurological: Positive for light-headedness. All other systems reviewed and are negative. [facility] 09-04-2023 Note [facility] CARDIOLOGY PROGR ESS NOTE HPI: Tania Venegas is a 58 y.o. male here for increased SOB and fatigue Patient here for 9 mo follow up chronic systolic heart failure, PAF, and PVC's. Follows with Dr. Cox at [facility]. C/o noticeable SOB w/wo exertion. Denies chest pain and bleeding on warfarin. He has an apt in Nov with the heart failure clinic at [facility]. Has not been taking Crestor. Notes increased fatigue and exercise/activity tolerance has reduced, increase GRAF, denied orthopnea, chest pain, palpitations. Does admit that sometime upon awakening his heart rate seems to be fast. Review of Systems Constitutional: Positive for malaise/fatigue. Cardiovascular: Positive for dyspnea on exertion and leg swelling. Respiratory: Positive for shortness of breath. Musculoskeletal: Positive for arthritis, back pain, joint pain and myalgias. Neurological: Positive for light-headedness. All other systems reviewed and are negative. Previous HPI 11/2022 HPI: Tania Venegas is a 57 y.o. male here for Congestive Heart Failure, Coronary Artery Disease, and Atrial Fibrillation Patient here for 9 mo follow up h/o PAF, CAD, and non-ischemic cardiomyopathy (LVEF 20-25%), PVC, hx of non-hodgkin's lymphoma s/p anthracycline chemo 2006. Scheduled for another device check in 2 weeks. Had labs in May and Aug 2022. Still sees Dr. Cox at [facility] (EP), and saw him last month (11/15) with CXR and labs. Denies chest pain and bleeding on warfarin. He also saw advanced heart failure clinic at [facility] with Dr Hurtado in September 15. Currently admits typical shortness of breath with exertion, denied SOB at rest or with ADLs. Denied chest pain, orthopnea. States weight has remained stable. Last note per Dr Hurtado at [facility] advanced heart failure clinic- Patient with NYHA Class III, ACC stage C non-ischemic cardiomyopathy maybe chemotherapy related and LVEF 25-30%. High PVC burden around 17% (35K PVCs). Trying to suppress PVCs with amiodarone while EP awaits ablation (unsuccessful due to epicardial location and possibly reattempt with pulse field technique next year once available, follows with Dr. Cox). Increase eplerenone to 25 mg every day with F/U chem 6 in 2 wks. Could not afford farxiga and did not tolerate empagliflozin. Mentioned trying MAP. F/U VO2 at 01/17 visit with EP (last was on a bike and should be done on a treadmill in cardiology). -has follow up with EP for consideration of pulse wave ablation in the future. Will repeat VO2 in ~ 6 months with follow up. Visit Vitals BP 114/64 (BP Location: Left arm, Patient Position: Sitting) Pulse 88 Ht 1.854 m (6' 1 ) Wt 121 kg (267 lb) SpO2 94% BMI 35.23 kg/m??? Smoking Status Never BSA 2.5 m??? No Known Allergies Medications: Current Outpatient Medications on File Prior to Visit Medication Sig Dispense Refill amiodarone (Pacerone) 200 mg tablet Take 0.5 tablets by mouth in the morning. 100 mg daily aspirin 81 mg chewable tablet Chew 81 mg in the morning. eplerenone (Inspra) 25 mg tablet Take 25 mg by mouth in the morning. metoprolol succinate XL (Toprol-XL) 50 mg 24 hr tablet 50mg in the AM, 25mg in the PM sacubitriL-valsartan (Entresto) 49-51 mg tablet Take 0.5 tablets by mouth in the morning and at bedtime. warfarin (Coumadin) 5 mg tablet warfarin 5 mg tablet TAKE DIRECTED BY COUMADIN CLINIC sertraline (Zoloft) 100 mg tablet Take 100 mg by mouth at bedtime. [DISCONTINUED] rosuvastatin (Crestor) 10 mg tablet Take 10 mg by mouth at bedtime. No current facility-administered medications on file prior to visit. Physical Exam: Constitutional: Appearance: Normal appearance. Without apparent distress, obese, Chronically ill HENT: Head: Normocephalic and atraumatic. Nose: Nose normal. Mouth/Throat: Mouth: Mucous membranes are moist. Eyes: Extraocular Movements: Extraocular movements intact. Conjunctiva/sclera: Conjunctivae normal. Neck: Vascular: No JVD. Cardiovascular: Rate and Rhythm: Normal rate and regular rhythm- paced. Pulses: Dorsalis pedis pulses are 3 on the right side and 3on the left side. Posterior tibial pulses are 3 on the right side and 3 on the left side. Heart sounds: Normal heart sounds, S1 normal and S2 normal. Pulmonary: Effort: Pulmonary effort is normal. Breath sounds: Normal breath sounds. Abdominal: General: Bowel sounds are normal. Palpations: Abdomen is soft. Musculoskeletal: General: Normal range of motion. Cervical back: Normal range of motion. Right lower le+ pitting edema. Left lower le+ pitting edema. Skin: General: Skin is warm and dry. Capillary Refill: Capillary refill takes less than 2 seconds. Neurological: General: No focal deficit present. Mental Status: he is alert and oriented to person, place, and time. Psychiatric: Mood and Affect: Mood normal. Behavior: Behavior normal. Thought Content: Thought content normal. Judgment: Judgment normal. Labs: (more content not included)... [facility] 01-31-2023 History of Presen t illness Narrative Tania Venegas is a 57 y.o. 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 PCP: Dr. Oliver Springer; Cardiology: Dr. Abhijit Zelaya ([facility]); [place] () HPI: Tania Venegas is a 57 y.o. male with a hx as outlined below. He was last seen in this clinic on 08/30/2022. Since then he followed with anti-arrhythmic clinic and had PFTs done which showed improvement in DLCO to normal range. He followed with Dr. Cox in December and his amiodarone was decreased to 100mg daily for possible intolerance (fatigue) and he ordered a MCT which is still pending and decreased his rate response Today he reports feeling well. About the same since the last time he was seen. 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 He otherwise denies dyspnea with daily activity, no chest pain/pressure/discomfort, ?orthopnea, no PND, stable peripheral edema, no nausea/vomiting, appetite is good, does report some abdominal bloating. He does report occasional orthostatic lightheadedness, no syncope, reports one episode or pre-syncope a few weeks ago that has not occurred since then. BP: usually 90-100/70s. PMH: 1. Chronic systolic heart failure, anthracycline toxicity, diagnosed 2015 with PVCs and bradycardia -SCRAPER TENDER-D: reduced BiV pacing due to PVCs -Echo 11/2021: LVEF 25-30%, Grade 2 diastolic dysfunction, YNES, mild MR/TR, RVSP 40 mmHg -Echo 06/2019: LVEF 30-35% -LHC around 2015 ([facility]): no CAD -LHC 09/03/2019 ([facility]): mild non-obstructive CAD -RHC 09/03/2019 ([facility]): RA 6, PA 38/18 (29) PCWP 18, CI: 3.1 2. Afib -2016 Afib ablation c/b perforation -Cryo + CTI 06/2017 -Repeat CTI ablation 12/2020 3. HTN 4. PVC - Follows with EP -Unsuccessful ablation due to epicardial location -anti-arrhythmics: mexilitine tried with amiodarone without benefit. Switched to ranolazine and amiodarone. 5. Non-Hodgkins lymphoma 2006, s/p anthracycline 6. BRANNON on CPAP, RLS 7. Morbid obesity 8. Non-obstructive CAD -Cath 08/2019 with mild CAD- 30% ostial and 20% mLAD, Family/Social Hx as documented in EMR reviewed with patient. Current Outpatient Medications Medication Sig AMIOdarone 200 MG tablet Take 1 tablet by mouth daily. (Patient taking differently: Take 100 mg by mouth daily.) aspirin 81 MG Chew Tab chewable tablet Chew 1 tablet daily. Entresto 49-51 MG tablet 0.5 tab two times daily eplerenone 25 MG tablet Take 1 tablet by mouth daily. metoprolol succinate 50 MG tablet XL 50mg QAM + 25mg QPM rosuvastatin 10 MG tablet Take 1 tablet by mouth daily. warfarin 5 MG tablet Take 1 tablet by mouth every evening at 6 PM. Review of Systems A complete review of systems was performed and positive for symptoms mentioned in the history of present illness. The remainder of system review was negative. Physical Exam BP 109/68 (BP Location: Left arm, BP Position: Standing) Pulse 72 Resp 18 Ht 1.854 m (6' 1 ) Wt 117.5 kg (259 lb) SpO2 97% BMI 34.17 kg/m Smoking Status Never Body mass index is 34.17 kg/m . General/Constitutional: Well developed, well nourished male, who looks their stated age of 57 y.o.. No acute distress. HEENT: No xanthelasma. Neck: Supple, non-tender. No thyromegaly or carotid bruits. Cardiac: Regular rate and rhythm with a couple extra heart sounds. Normal S1, S2. No murmurs, rubs or gallops. JVP ~ 8cm w/ HJR. Pulmonary/Chest: Lungs are clear to ascultation bilaterally. No wheezes, rhonchi or rales noted. Abdominal: Soft, non-tender, non-distended. No organomegaly. Musculoskeletal: Normal range of motion in all four extremities, with normal strength equally and symmetrically. No cyanosis or clubbing, trivial pre-tibial edema. Periperal Vascular Exam: Normal radial, posterior tibial arterial pulses. Neurological: No focal neurologic deficit. Skin: Skin is warm and dry. He is not diaphoretic. Psychiatric: Appropate mood and affect for his clinical situation. Affect normal. Mental Status: Alert and oriented to person, place and time. Database: Lab Results Component Value Date WBC 8.46 01/19/2021 WBC 6.66 12/10/2018 HGB 13.1 (L) 11/07/2022 HGB 13.4 12/10/2018 HCT 39.9 01/19/2021 HCT 40.7 12/10/2018 PLATELET 203 01/19/2021 PLATELET 220 12/10/2018 MCV 90.7 01/19/2021 MCV 86.6 12/10/2018 Lab Results Component Value Date BNP 201 (H) 01/04/2022 No results found for: CHOLESTEROL, TRIG, HDL Lab Results Component Value Date SODIUM 137 09/19/2022 POTASSIUM 4.2 11/07/2022 CHLORIDE 101 09/19/2022 CO2 28.9 09/19/2022 BUN 17.0 09/19/2022 CREATSERUM 1.15 09/19/2022 Guideline Directed Medical HF Therapy: ACEI / ARB / ARNI: entresto 1/2 tab 49-51 mg BID Beta ashley: toprol XL 50/25 AM/PM Aldosterone antagonist: eplerenone 25mg daily SGLT-2i: none - nausea with jardiance and farxiga expensive Ivabradine: no SCRAPER TENDER: yes ICD: yes CardioMEMS: no Other: amiodarone 100mg, crestor 10mg, coumadin. Assessment/Plan: Thus, in summary, is a 57 y.o. male with a hx of non-ischemic cardiomyopathy (LVEF 20-25%), PVC, hx of non-hodgkin's lymphoma s/p anthracycline chemo 2007 being managed today for the following issues: 1.) Non-ischemic cardiomyopathy / chronic systolic heart failure: NYHA Class IIb, ACC/AHA class C, and clinical class A (warm and euvolemic). Sxs stable. VO2 done last month with pVO2 20 (77% predicted), VE/VCO2 30 - improvement from the one at [facility] in April 2022. - GDMT: continue entresto, toprol, and eplerenone. Given orthostatic/lightheaded sxs with soft/boderling BP's will not increase GDMT further. Not on SGLT2i due to nausea with jardiance and farxiga too expensive (100/month). - Encouraged to check BP regularly. - Advance therapies - tolerating medications currently with good VO2 last month. Will not pursue testing right now. From a fatigue standpoint wearing MCT to see if related to PVCs 2.) PVC: Follows with EP. Unsuccessful ablation due to epicardial location, high risk to re-attempt. On anti-arrhythmic medications - amiodarone only, unable to afford ranolazine. PFTs repeated in Oct 2022 with normal DLCO. 3.) Non-obstructive CAD: Stable. 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 On crestor 10mg daily - due to hx of muscle cramps with lipitor 4.) Paroxysmal afib s/p ablation. On toprol XL and coumadin. 5.) BRANNON: using CPAP regularly. Thank you for the opportunity to participate in the care of your patient. We will continue to follow him in our Advanced Heart Failure Clinic along with you with plans to see him back in 6 months. oJne Davenport MD Fellow, Advance Heart Failure and Transplant [phone] Patient Education Patient education regarding the following topic(s) was provided on 01/31/2023: plan of care. No changes to medications today Please follow up with Dr. Hurtado in 6 months Those in attendance for the education included: patient. Barriers in providing the education included: none. The following methods were used in providing the education: explanation. [facility] handouts given included: After visit summary. The response of those in attendance was: states/identifies education topic. The following Clinical Intervention(s) occurred during today s visit: Orthostatic or Coarctation vital signs completed and Extensive teaching provided to patient and or support team regarding plan of care Attending Physician Note (GE) I independently evaluated the patient with the fibre cement moulder, and we developed the plan for management together. I have reviewed the above note and edited the essential parts of the note, which reflects my own impression and plan. I agree with the chief complaint, history, exam, and plan as detailed by the fibre cement moulder. Based on the history and exam, I agree with the medical decision making with the following comment(s): Patient with NYHA Class II, ACC stage C non-ischemic cardiomyopathy maybe chemotherapy related and LVEF 25-30%. High PVC burden around 17% (35K PVCs). Trying to suppress PVCs with amiodarone while EP reassess PVC burden - currently wearing MCT. Prior unsuccessful ablation attempt at outside hospital due to epicardial location and possibly reattempt with pulse field technique once available, follows with Dr. Cox. On GDMT and dizziness limits medication titration. Nausea on empagliflozin and farxiga cost-prohibitive. VO2 in 01/17 with reasonable exercise tolerance (peak 20, 77% predicted) and we discussed cardiac rehab - he prefers to increase exercise level [place] and is [place]. Ajit Hurtado M.D. Professor of Clinical Internal Medicine Advanced Heart Failure and Transplant Program [facility] [email or web address] [phone] fax [phone] documented in this encounter [facility] 01-31-2023 Instructions Amina Guadalupe RN - 01/31/2023 8:30 AM EST Recommendations from Dr Hurtado today: No changes to medications today Please follow up with Dr. Hurtado in 6 months After visit summary (AVS) is viewable in [facility] My Chart. Send My Chart message for non-urgent inquiry or Call RN if you have cardiac questions/concerns M-F 8 to 4:30 ; office # [phone], option 6, then option 2. Guidelines for home management: 1. Continue to monitor weight first thing each morning. 2. Report to the CHF CLINIC ([phone]) any significant weight change. Remember that weight change of 2-3 lbs. in 1 day or 5 lbs in a week is significant and likely represents changes in fluid status. 3. If you are taking a diuretic (such as lasix, demadex, bumex), you should also restrict all sodium intake to 2000 milligrams (2 grams) a day. Depending on your status, you may also be asked to restrict fluid intake to no more than 64 oz/2 Liters a day. If uncertain, ask the nurse or physician. 4. Regular aerobic exercise is encouraged 30 minutes a day (walking, bike, swimming, etc.). For specific exercise recommendations, ask your physician. 5. Report to CHF CLINIC any change in symptoms (chest pain, worsening shortness of breath, increased dizziness or passing out, increased palpitations or ICD shock, trouble catching breath while lying down, increased edema or abdominal bloating). Remember that even minor changes in symptoms may be important. Also report any changes in medications including over the counter medications. 6. DO NOT take NSAID's for pain (i.e, Advil, Aleve, Motrin, ibuprofen, and many more) since these may cause serious problems in those with a history of CHF. If uncertain about the medication, call us. 7. * If you have new significant or ongoing diarrhea or vomiting, please hold your diuretic (examples: furosemide/Lasix or torsemide/Demadex) and call our clinic for further instructions. Taking a diuretic (water pill) with these symptoms can worsen dehydration. If you decide to have labs/tests run outside of the [facility] and you do not hear from us 1-2 days after they are performed, you must call us to ensure we received the results. Office fax # [phone]. No news does not necessarily mean that your tests are normal, it could mean we did not get the results. For questions/updates: please provide your name with spelling, date of and question or update All calls are prioritized and responses researched, if possible, prior to calls being returned. Call Scheduling for any appointment/procedure verification or changes [phone], option 7 or [facility] at [phone], option 1. documented in this encounter [facility] 12-12-2022 Note Rate controlled with amiodarone and toprol. Remains on warfarin anticoagulation. [facility] 12-12-2022 Note Pt has F/U with ROSALINDA gordon t [facility] for consideration for possible PVC ablation this December. [facility] 12-12-2022 Note NYHC II-III Denied activity limiting symptoms. Currently euvolemic without exacerbation. Continue GDMT- Farxiga was not affordable- and he had side effects with jardiance- therefore was dc'd. Continue ASA, toprol, crestor, and entresto Monitor daily weights, I&O, fluid restriction 1.5-2L/day, renal function and electrolytes F/U with Advanced Heart failure clinic at [facility] as scheduled [facility] 12-12-2022 Note Patient here for 9 m o follow up PAF, CAD, and systolic heart failure. Scheduled for another device check in 2 weeks. Had labs in May and Aug 2022. Still sees Dr. Cox at [facility] (EP), and saw him last month with CXR and labs. Denies chest pain and bleeding on warfarin. Review of Systems Constitutional: Positive for malaise/fatigue. Cardiovascular: Positive for dyspnea on exertion and leg swelling. Neurological: Positive for light-headedness. All other systems reviewed and are negative. [facility] 12-12-2022 Note [facility] CARDIOLOGY PROGR ESS NOTE HPI: Tania Venegas is a 57 y.o. male here for Congestive Heart Failure, Coronary Artery Disease, and Atrial Fibrillation Patient here for 9 mo follow up h/o PAF, CAD, and non-ischemic cardiomyopathy (LVEF 20-25%), PVC, hx of non-hodgkin's lymphoma s/p anthracycline chemo 2006. Scheduled for another device check in 2 weeks. Had labs in May and Aug 2022. Still sees Dr. Cox at [facility] (EP), and saw him last month (11/15) with CXR and labs. Denies chest pain and bleeding on warfarin. He also saw advanced heart failure clinic at [facility] with Dr Hurtado in September 15. Currently admits typical shortness of breath with exertion, denied SOB at rest or with ADLs. Denied chest pain, orthopnea. States weight has remained stable. Review of Systems Constitutional: Positive for malaise/fatigue. Cardiovascular: Positive for dyspnea on exertion and leg swelling. Neurological: Positive for light-headedness. All other systems reviewed and are negative. Visit Vitals BP 116/77 (BP Location: Left arm, Patient Position: Sitting) Pulse 55 Ht 1.854 m (6' 1 ) Wt 117 kg (259 lb) SpO2 97% BMI 34.17 kg/m??? Smoking Status Never BSA 2.45 m??? No Known Allergies Medications: Current Outpatient Medications on File Prior to Visit Medication Sig Dispense Refill amiodarone (Pacerone) 200 mg tablet Take 1 tablet by mouth in the morning. aspirin 81 mg chewable tablet Chew 81 mg in the morning. eplerenone (Inspra) 25 mg tablet Take 25 mg by mouth in the morning. metoprolol succinate XL (Toprol-XL) 50 mg 24 hr tablet 50mg in the AM, 25mg in the PM rosuvastatin (Crestor) 10 mg tablet Take 10 mg by mouth at bedtime. sacubitriL-valsartan (Entresto) 49-51 mg tablet Take 0.5 tablets by mouth in the morning and at bedtime. sertraline (Zoloft) 100 mg tablet Take 100 mg by mouth at bedtime. warfarin (Coumadin) 5 mg tablet warfarin 5 mg tablet TAKE DIRECTED BY COUMADIN CLINIC [DISCONTINUED] buPROPion XL (Wellbutrin XL) 150 mg 24 hr tablet bupropion HCl XL 150 mg 24 hr tablet, extended release TAKE 3 TABLETS BY MOUTH EVERY MORNING [DISCONTINUED] mexiletine (Mexitil) 150 mg capsule mexiletine 150 mg capsule TAKE 2 CAPSULES BY MOUTH 2 TIMES DAILY. TAKE WITH FOOD. [DISCONTINUED] montelukast (Singulair) 10 mg tablet montelukast 10 mg tablet TAKE 1 TABLET BY MOUTH EVERY DAY No current facility-administered medications on file prior to visit. Physical Exam: Constitutional: Appearance: Normal appearance. Without apparent distress, chronically ill HENT: Head: Normocephalic and atraumatic. Nose: Nose normal. Mouth/Throat: Mouth: Mucous membranes are moist. Eyes: Extraocular Movements: Extraocular movements intact. Conjunctiva/sclera: Conjunctivae normal. Neck: Vascular: No JVD. Cardiovascular: Rate and Rhythm: Normal rate and regular rhythm. Pulses: Dorsalis pedis pulses are 3 on the right side and 3on the left side. Posterior tibial pulses are 3 on the right side and 3 on the left side. Heart sounds: Normal heart sounds, S1 normal and S2 normal. Pulmonary: Effort: Pulmonary effort is normal. Breath sounds: Normal breath sounds. Abdominal: General: Bowel sounds are normal. Palpations: Abdomen is soft. Musculoskeletal: General: Normal range of motion. Cervical back: Normal range of motion. Right lower leg: No edema. Left lower leg: No edema. Skin: General: Skin is warm and dry. Capillary Refill: Capillary refill takes less than 2 seconds. Neurological: General: No focal deficit present. Mental Status: alert and oriented to person, place, and time. Psychiatric: Mood and Affect: Mood normal. Behavior: Behavior normal. Thought Content: Thought content normal. Judgment: Judgment normal. Labs: Last lab values have been reviewed CV Testing: Underwent a VO2 test in April 2022 with pVO2 16.7, VE/VCO2; RHC 2018 with normal filling pressures and normal cardiac output/index Assessment/Plan: Acute on chronic systolic heart failure (CMS/HCC) [facility] II-III Denied activity limiting symptoms. Currently euvolemic without exacerbation. Continue GDMT- Gildardo was not affordable- and he had side effects with jardiance- therefore was dc'd. Continue ASA, toprol, crestor, and entresto Monitor daily weights, I&O, fluid restriction 1.5-2L/day, renal function and electrolytes F/U with Advanced Heart failure clinic at [facility] as scheduled PVC's (premature ventricular contractions) Pt has F/U with EP at [facility] for consideration for possible PVC ablation this December. Paroxysmal atrial fibrillation (CMS/HCC) Rate controlled with amiodarone and toprol. Remains on warfarin anticoagulation. Last note per Dr Hurtado at [facility] advanced heart failure clinic- Patient with NYHA Class III, ACC stage C non-ischemic cardiomyopathy maybe chemotherapy related and LVEF 25-30%. High PVC burden around 17% (35K PVCs). Trying to suppress PVCs with amiodarone while EP awaits (more content not included)... [facility] 08-30-2022 History of Presen t illness Narrative Tania Venegas is a 56 y.o. 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 PCP: Dr. Oliver Springer; Cardiology: Dr. Abhijit Zelaya (local); Brooke (EP) HPI: Tania Venegas is a 56 y.o. male with a hx as outlined below. He was last seen in this clinic on 05/02/2022. At that visit he was started on farxiga and eplerenone. Farxiga since has been stopped due to it being cost prohibitive. He also followed with EP with plans to get updated PFTs and if they look okay/stable continue with amiodarone for PVC suppression and re-address ablation next year. Today he reports feeling overall well. He reports stable intermittent fatigue and dyspnea while with moderate exertion. He denies chest pain/pressure/discomfort, no lightheadedness, no syncope, no nausea, vomiting, no abdominal pain, no fullness. No peripheral edema, orthopnea or PND. He states that the fatigue occurs usually when he feels his PVCs. 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 Able to walk on flat ground a few blocks, able to get up a flight of stairs but likely tired after/at the top. Weights have been stable at home. BP: Unclear if checking it regularly as he is uncertain of what SBP generally runs but suspect 100-110s. Had low BP a few months while at PCP ~ 90/60 and was told by PCP at that time to decrease dose of enstresto PMH: 1. Chronic systolic heart failure, anthracycline toxicity, diagnosed 2015 with PVCs and bradycardia -SCRAPER TENDER-D: reduced BiV pacing due to PVCs -Echo 11/2021: LVEF 25-30%, Grade 2 diastolic dysfunction, YNES, mild MR/TR, RVSP 40 mmHg -Echo 06/2019: LVEF 30-35% -LHC around 2016 ([facility]): no CAD -LHC 09/03/2019 ([facility]): mild non-obstructive CAD -RHC 09/03/2019 ([facility]): RA 6, PA 38/18 (29) PCWP 18, CI: 3.1 2. Afib -2016 Afib ablation c/b perforation -Cryo + CTI 06/2017 -Repeat CTI ablation 12/2020 3. HTN 4. PVC - Follows with EP -Unsuccessful ablation due to epicardial location -anti-arrhythmics: mexilitine tried with amiodarone without benefit. Switched to ranolazine and amiodarone. 5. Non-Hodgkins lymphoma 2006, s/p anthracycline 6. BRANNON on CPAP, RLS 7. Morbid obesity 8. Non-obstructive CAD -Cath 08/2019 with mild CAD- 30% ostial and 20% mLAD, Family/Social Hx as documented in EMR reviewed with patient. Current Outpatient Medications Medication Sig AMIOdarone 200 MG tablet Take 1 tablet by mouth daily. aspirin 81 MG Chew Tab chewable tablet Chew 1 tablet daily. dapagliflozin 5 MG tablet Take 1 tablet by mouth daily. Entresto 49-51 MG tablet Take 0.5 tablets by mouth 2 times daily. eplerenone 25 MG tablet Take 0.5 tablets by mouth daily. metoprolol succinate 50 MG tablet XL 50mg QAM + 25mg QPM Ranolazine 500 MG Tab SR 12 HR tablet Take 1 tablet by mouth 2 times daily. rosuvastatin 10 MG tablet Take 10 mg by mouth daily. warfarin 5 MG tablet Take 5 mg by mouth every evening at 6 PM. Review of Systems A complete review of systems was performed and positive for symptoms mentioned in the history of present illness. The remainder of system review was negative. Physical Exam BP 135/87 (BP Location: Left arm, BP Position: Standing) Pulse 66 Resp 18 Ht 1.829 m (6') Wt 117 kg (257 lb 14.4 oz) SpO2 98% BMI 34.98 kg/m Smoking Status Never Smoker Body mass index is 34.98 kg/m . General/Constitutional: Well developed, well nourished male, who looks their stated age of 56 y.o.. No acute distress. HEENT: No xanthelasma. Neck: Supple, non-tender. No thyromegaly or carotid bruits. Cardiac: Regular rate and rhythm with a couple extra heart sounds. Normal S1, S2. No murmurs, rubs or gallops. JVP ~ 8cm, no HJR. Pulmonary/Chest: Lungs are clear to ascultation bilaterally. No wheezes, rhonchi or rales noted. Abdominal: Soft, non-tender, non-distended. No organomegaly. Musculoskeletal: Normal range of motion in all four extremities, with normal strength equally and symmetrically. No cyanosis or clubbing or peripheral edema. Periperal Vascular Exam: Normal radial, posterior tibial arterial pulses. Neurological: No focal neurologic deficit. Skin: Skin is warm and dry. He is not diaphoretic. Psychiatric: Appropate mood and affect for his clinical situation. Affect normal. Mental Status: Alert and oriented to person, place and time. Database: Lab Results Component Value Date WBC 8.46 01/19/2021 WBC 6.66 12/10/2018 HGB 12.8 (L) 01/19/2021 HGB 13.4 12/10/2018 HCT 39.9 01/19/2021 HCT 40.7 12/10/2018 PLATELET 203 01/19/2021 PLATELET 220 12/10/2018 MCV 90.7 01/19/2021 MCV 86.6 12/10/2018 Lab Results Component Value Date BNP 201 (H) 01/04/2022 No results found for: CHOLESTEROL, TRIG, HDL Lab Results Component Value Date SODIUM 135 06/01/2022 POTASSIUM 4.5 06/01/2022 CHLORIDE 101 06/01/2022 CO2 27.2 06/01/2022 BUN 18 06/01/2022 CREATSERUM 1.16 06/01/2022 Guideline Directed Medical HF Therapy: ACEI / ARB / ARNI: entresto 1/2 tab 49-51 mg BID Beta ashley: toprol XL 50/25 AM/PM Aldosterone antagonist: eplerenone 12.5mg daily SGLT-2i: none - nausea with jardiance and farxiga expensive Ivabradine: no SCRAPER TENDER: yes ICD: yes CardioMEMS: no Other: amiodarone 200mg, crestor 10mg, coumadin. Assessment/Plan: Thus, in summary, is a 56 y.o. male with a hx of non-ischemic cardiomyopathy (LVEF 20-25%), PVC, hx of non-hodgkin's lymphoma s/p anthracycline chemo 2007 being managed today for the following issues: 1.) Non-ischemic cardiomyopathy / chronic systolic heart failure: NYHA Class IIb, ACC/AHA class C, and clinical class A (warm and euvolemic). Sxs stable. Underwent a VO2 test in April 2022 with pVO2 16.7, VE/VCO2; RHC 2018 with normal filling pressures and normal cardiac output/index - GDMT: continue with entresto 1/2 tab 49-51mg BID, toprol XL 50/25mg AM/PM, increase eplerenone to full tab 25mg daily. Labs in ~ 2 wks after increase in dose. Unable to afford farxiga. - Encouraged to check BP regularly. - Advance therapies - tolerating medications currently with boderline VO2, increasing GDMT as above and has follow up with EP for consideration of pulse wave ablation in the future. Will repeat VO2 in ~ 6 months with follow up. 2.) PVC: Follows with EP. Unsuccessful ablation due to epicardial location, high risk to re-attempt. On anti-arrhythmic medications - amiodarone only, unable to afford ranolazine. PFTs ordered by EP. 3.) Non-obstructive CAD: Stable. 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 On crestor 10mg daily - due to hx of muscle cramps with lipitor 4.) Paroxysmal afib s/p ablation. On toprol XL and coumadin. 5.) BRANNON: using CPAP regularly. Thank you for the opportunity to participate in the care of your patient. We will continue to follow him in our Advanced Heart Failure Clinic along with you with plans to see him back in ~6 months with VO2. Jone Davenport MD Fellow, Advance Heart Failure and Transplant [phone] Attending Physician Note (GE) I independently evaluated the patient with the fibre cement moulder, and we developed the plan for management together. I have reviewed the above note and edited the essential parts of the note, which reflects my own impression and plan. I agree with the chief complaint, history, exam, and plan as detailed by the fibre cement moulder. Based on the history and exam, I agree with the medical decision making with the following comment(s): Patient with NYHA Class III, ACC stage C non-ischemic cardiomyopathy maybe chemotherapy related and LVEF 25-30%. High PVC burden around 17% (35K PVCs). Trying to suppress PVCs with amiodarone while EP awaits ablation (unsuccessful due to epicardial location and possibly reattempt with pulse field technique next year once available, follows with Dr. Cox). Increase eplerenone to 25 mg every day with F/U chem 6 in 2 wks. Could not afford farxiga and did not tolerate empagliflozin. Mentioned trying MAP. F/U VO2 at 01/17 visit with EP (last was on a bike and should be done on a treadmill in cardiology). Ajit Hurtado M.D. Professor of Clinical Internal Medicine Advanced Heart Failure and Transplant Program [facility] [email or web address] ph [phone] fax [phone] documented in this encounter [facility] 08-30-2022 Instructions Delmy Frey RN - 08/30/2022 9:30 AM EDT Recommendations from Dr Hurtado today: VO2 Test has been ordered for you today, scheduled in December with Dr Cox appointment. INCREASE eplerenone to 25mg (full tablet) daily. LABS 2 weeks after increasing eplerenone. Continue current medications. Follow up in 6 months. After visit summary (AVS) is viewable in [facility] My Chart. Send My Chart message for non-urgent inquiry or Call RN if you have cardiac questions/concerns M-F 8 to 4:30 ; office # [phone], option 6, then option 2. Guidelines for home management: 1. Continue to monitor weight first thing each morning. 2. Report to the CHF CLINIC ([phone]) any significant weight change. Remember that weight change of 2-3 lbs. in 1 day or 5 lbs in a week is significant and likely represents changes in fluid status. 3. If you are taking a diuretic (such as lasix, demadex, bumex), you should also restrict all sodium intake to 2000 milligrams (2 grams) a day. Depending on your status, you may also be asked to restrict fluid intake to no more than 64 oz/2 Liters a day. If uncertain, ask the nurse or physician. 4. Regular aerobic exercise is encouraged 30 minutes a day (walking, bike, swimming, etc.). For specific exercise recommendations, ask your physician. 5. Report to CHF CLINIC any change in symptoms (chest pain, worsening shortness of breath, increased dizziness or passing out, increased palpitations or ICD shock, trouble catching breath while lying down, increased edema or abdominal bloating). Remember that even minor changes in symptoms may be important. Also report any changes in medications including over the counter medications. 6. DO NOT take NSAID's for pain (i.e, Advil, Aleve, Motrin, ibuprofen, and many more) since these may cause serious problems in those with a history of CHF. If uncertain about the medication, call us. 7. * If you have new significant or ongoing diarrhea or vomiting, please hold your diuretic (examples: furosemide/Lasix or torsemide/Demadex) and call our clinic for further instructions. Taking a diuretic (water pill) with these symptoms can worsen dehydration. If you decide to have labs/tests run outside of [facility] and you do not hear from us 1-2 days after they are performed, you must call us to ensure we received the results. Office fax # [phone]. No news does not necessarily mean that your tests are normal, it could mean we did not get the results. For questions/updates: please provide your name with spelling, date of and question or update All calls are prioritized and responses researched, if possible, prior to calls being returned. Call Scheduling for any appointment/procedure verification or changes [phone], option [address] [facility] Heart Schedulers at [phone], option 1. documented in this encounter [facility] 06-05-2022 Telephone encounter Note From: Ajit Hurtado MD Sent: 06/04/2022 5:04 PM EDT To: [facility] Heart Failure Nurse Pool Ok, labs are fine. Thanks. MyChart message sent to patient. [facility] 06-05-2022 Miscellaneous Notes From: Ajit Hurtado MD Sent: 06/04/2022 5:04 PM EDT To: [facility] Heart Failure Nurse Pool Ok, labs are fine. Thanks. MyChart message sent to patient. Outside lab results received, manually entered. documented in this encounter [facility] 06-01-2022 Telephone encounter Note Outside lab results received, manually entered. [facility] 06-01-2022 Miscellaneous Notes Outside lab results received, manually entered. documented in this encounter [facility] Evaluation note Diagnosis Left hip pain Pain in joint, pelvic region and thigh documented in this encounter [facility] Phone: evaluation note* Diagnosis Chronic systolic heart failure- Primary Paroxysmal atrial fibrillation Atrial fibrillation PVC (premature ventricular contraction) Other premature beats Coronary artery disease involving [place] coronary artery of [place] heart without angina pectoris [facility] Diagnosis Encounter for long-term (current) use of high-risk medication Encounter for long-term (current) use of other medications PVC's (premature ventricular contractions) Other premature beats Encounter for long-term (current) use of medications Encounter for long-term (current) use of other medications [facility] Chronic systolic heart failure [facility] Diagnosis Chronic systolic heart failure- Primary PVC (premature ventricular contraction) Other premature beats Paroxysmal atrial fibrillation Atrial fibrillation Coronary artery disease involving [place] coronary artery of [place] heart without angina pectoris [facility] Diagnosis Chronic systolic heart failure- Primary PVC (premature ventricular contraction) Other premature beats Paroxysmal atrial fibrillation Atrial fibrillation Coronary artery disease involving [place] coronary artery of [place] heart without angina pectoris [facility] Diagnosis PVC's (premature ventricular contractions)- Primary Other premature beats documented in this encounter [facility] Summary Purpose Family History No Family History Records FoundNo Family History Records FoundNo Family History Records FoundNo Family History Records FoundNo Family History Records FoundNo Family History Records FoundNo Family History Records FoundNo Family History Records FoundNo Family History Records Found Advance Directives No Advanced Directives Records FoundDocuments on File Type Date Recorded Patient Qi Specialist Expl anation Advance Directives and Livin g Will 03/24/2020 5:51 AM Documents on File Type Date Recorded Patient Qi Specialist Expl anation Advance Directives and Living Will Power of Development Associate Latest Code Status on File Code Status Date Activated Date Inactivated Comments Full Code 01/18/2021 12:08 PM Full Code 11/27/2019 12:29 PM 01/18/2021 12:08 PM Full Code 07/19/2017 2:17 PM 07/20/2017 1:00 PM Latest Code Status on File Code Status Date Activated Date Inactivated Comments Full Code 01/18/2021 12:08 PM Full Code 11/27/2019 12:29 PM 01/18/2021 12:08 PM Full Code 07/19/2017 2:17 PM 07/20/2017 1:00 PM Latest Code Status on File Code Status Date Activated Date Inactivated Comments Full Code 01/18/2021 12:08 PM Code Status History Code Status Date Activated Date Inactivated Comments Full Code 11/27/2019 12:29 PM 01/18/2021 12:08 PM Full Code 07/19/2017 2:17 PM 07/20/2017 1:00 PM Latest Code Status on File Code Status Date Activated Date Inactivated Comments Full Code 01/18/2021 12:08 PM Code Status History Code Status Date Activated Date Inactivated Comments Full Code 11/27/2019 12:29 PM 01/18/2021 12:08 PM Full Code 07/19/2017 2:17 PM 07/20/2017 1:00 PM Discharge Instructions * Discharge Instr - Other Orders* Melba Miller RN - 03/24/2020 1:57 PM EDT Reviewed AVS with pt and his * Additional Instructions* Kelly Morales CNP - 03/22/2020 - Follow the preprinted instruction provided by your [facility] Physician. - Take all medications as prescribed. - You are non weight bearing on your surgery foot, use a walker or crutches as needed. - Keep your surgical extremity elevated as much as possible. - Keep your dressing/posterior splint clean dry and intact. Do not remove. - Do Not Drive until cleared to do so by your surgeon or while taking pain medication. SLEEP DISORDER HOME CARE INSTRUCTIONS -Obstructive sleep apnea (BRANNON) is the most common type of sleep disorder. With BRANNON, a person has short periods where they stop breathing while sleeping. This condition can be treated. -The most common treatment for BRANNON is using equipment that keeps your airway open while you sleep. If you need treatment, the doctor will explain this to you and you will be instructed on how to use the equipment. With treatment, most people feel better and have more energy within a few days. Treatment also helps prevent other medical conditions. -Wear your cpap nightly and with naps during the day -Avoid narcotics especially at night documented in this encounter Assessments Diagnosis Ankle arthritis Unspecified arthropathy, ankle and foot Reason for Referral Specialty Diagnoses / Procedures [facility] Referred To Contact Diagnoses Chronic systolic heart failure Procedures FUNCTIONAL VO2 TESTING Ajit Hurtado MD [address] [place] [address] Referral ID Status Reason Start Date Expiration Date V isits Requested Visits Authorized [id number] New Request 08/30/2022 09/24/2023 1 1 Specialty Diagnoses / Procedures Referred By Contac t Referred To Contact Diagnoses Encounter for long-term (current) use of high-risk medication PVC's (premature ventricular contractions) Encounter for long-term (current) use of medications Procedures PFT STANDARD Alexander Cox MD [address] [place] [address] Referral ID Status Reason Start Date Expiration Date V isits Requested Visits Authorized [id number] New Request 05/12/2022 06/06/2023 1 1 Specialty Diagnoses / Procedures Referred By Natalie whitaker Referred To Contact Ajit Hurtado MD [address] [place] [address] Referral ID Status Reason Start Date Expiration Date Visits Re quested Visits Authorized [id number] Closed 1 1 Additional Source Comments (unrecognized sect ion and content) No Status Records FoundNo Status Records FoundNo Status Records FoundNo Status Records FoundNo Status Records FoundNo Status Records FoundNo Status Records FoundNo Status Records FoundNo Status Records Found INFORMATION SOURCE (unrecogn ized section and content) DATE CREATED AUTHOR 12/12/2019 [facility] DATE CREATED AUTHOR AUTHOR'S ORGANIZ ATION 12/26/2019 Alyse brantley DATE CREATED AUTHOR AUTHOR'S ORGANIZ ATION 04/10/2020 [facility] DATE CREATED AUTHOR AUTHOR'S ORGANIZ ATION 04/13/2020 [facility] DATE CREATED AUTHOR AUTHOR'S ORGANIZ ATION 08/25/2020 [facility] DATE CREATED AUTHOR AUTHOR'S ORGANIZ ATION 11/24/2020 [facility] DATE CREATED AUTHOR AUTHOR'S ORGANIZ ATION 05/03/2023 [facility] DATE CREATED AUTHOR AUTHOR'S ORGANIZ ATION 09/06/2023 [facility] DATE CREATED AUTHOR AUTHOR'S ORGANIZ ATION 01/11/2024 [facility] Reason for Visit (unrecogniz ed section and content) Status Reason Specialty Diagnoses / Procedures Re ferred By Contact Referred To Contact Diagnoses M96.0, M19.072, S93.422A Procedures LEFT ANKLE HARDWARE REMOVAL, CALCANEAL OSTEOTOMY, TALONAVICULAR REVISION FUSION, 1ST TARSOMETATARSAL FUSION, ACHILLES TENDON LENGTHENING, DELTOID REPAIR Reason Onset Date Comments Results 06/01/2022 Reason Comments Follow-up Specialty Diagnoses / Procedures Referred By Contac t Referred To Contact Diagnoses Encounter for long-term (current) use of high-risk medication PVC's (premature ventricular contractions) Encounter for long-term (current) use of medications Procedures PFT STANDARD Alexander Cox MD [address] [place] [address] Referral ID Status Reason Start Date Expiration Date V isits Requested Visits Authorized [id number] New Request 05/12/2022 06/06/2023 1 1 Specialty Diagnoses / Procedures Referred By Contac t Referred To Contact Diagnoses Chronic systolic heart failure Procedures FUNCTIONAL VO2 TESTING Ajit Hurtado MD [address] [place] [address] Referral ID Status Reason Start Date Expiration Date V isits Requested Visits Authorized [id number] New Request 08/30/2022 09/24/2023 1 1 Reason Comments Follow-up Reason Comments Follow-up Denies chest pain; i nforms local engine repair supervisor started lasix which has helped Reason Onset Date Comments Results 11/06/2023 Reason Onset Date Comments Outside Medical Records Request 12/27/2023 Reason Comments Holter Monitor Hook-up Irwin Molina DPM - 03/24/2020 6:57 AM Irwin Ryan DPM - 03/24/2020 6:56 AM Jace Wang II, MD - 03/23/2020 12:45 PM EDT H&P Notes (unrecognized sect ion and content) INTERVAL HISTORY AND PHYSICAL Patient Name: Tania Venegas Admit Date: MR #: [id number] : 1965 The H&P has been reviewed and the patient has been examined. I concur with the findings of the H&P. There are no significant changes. It is appropriate to proceed with the planned procedure. Irwin Molina DPM 03/24/2020 6:57 AM INTERVAL HISTORY AND PHYSICAL Patient Name: Tania Venegas Admit Date: MR #: [id number] : 1965 The H&P has been reviewed and the patient has been examined. I concur with the findings of the H&P. There are no significant changes. It is appropriate to proceed with the planned procedure. Irwin Molina DPM 03/24/2020 6:56 AM Assessment and Plan 1. 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 Significant for a v paced rhythm. History of Hypertension: Today's blood pressure reading of BP Readings from Last 1 Encounters: 03/23/20 128/86 falls within an acceptable range (<140 & <90). BMI reviewed and found to be elevated (>25 kg/m2) at Body mass index is 34.79 kg/m . Pt given instructions to follow up their PCP. Current medications have been reviewed. Nicotine/tobacco screen completed. This patient is a non-smoker. Patient takes Coumadin for a/c therapy in setting vascular disease and PAF Instructions given regarding medications both verbally and in printed form. 2. Pseudarthrosis after fusion or arthrodesis Patient instructed on cessation of aspirin/nsaids/herbals for seven days preoperatively and voiced understanding Coumadin has been withheld for five doses and should be resumed as soon as possible postoperatively at the purview of the surgeon 3. Arthritis of left ankle Follow patient clinically and manage expectantly 4. Sprain of deltoid ligament of left ankle, initial encounter Follow patient clinically and manage expectantly 5. Pre-operative cardiovascular examination This patient has three revised cardiac risk indicators (RCRI) and would therefore be considered to be at increased but acceptable risk for major adverse cardiac events (MACE) and describes functional capacity of greater than 4 metabolic equivalents (METS) without symptoms of chest pain or shortness of breath. This patient would thus be considered at acceptable perioperative cardiac risk based on the 2014 ACC/AHA guidelines on perioperative cardiovascular evaluation. 6. Obstructive sleep apnea Patient compliant with CPAP therapy and reports control of symptoms with use, cont device perioperatively, instructed to bring device with on DOS and would follow postop closely per Anesthesia BRANNON protocol. 7. Paroxysmal atrial fibrillation (HCC) Patient has a history of Paroxysmal Atrial Fibrillation and is currently in V paced. Patient has been given advice on perioperative anticoagulation medication management. Patient will be at risk for thromboembolism while off anticoagulation. Patient should be place back on anicoagulation postoperatively as soon as acceptable to the surgical service. Patient will be at increased risk for development of atrial arrhythmia perioperatively and should be monitored on telemetry along with continuation of current antiarrhythmic medications perioperatively. 8. Anxiety Patient's mental state currently stable, continue home medications perioperatively and provide prn redirection as well as anxiolytics if needed 9. Coronary artery disease involving [place] coronary artery of [place] heart without angina pectoris Patient with history of CAD. Reports no current cp/sob/sx of ACS. Will continue cardioprotective medication regimen including bb/statin, consider postop extended observation. . Would follow per postop CAD protocol with telemetry as well as prn serial enzymes and ecg's if clinically indicated. 10. Essential hypertension Currently well controlled on home regimen BP Readings from Last 3 Encounters: 03/23/20 128/86 will continue home regimen with no change perioperatively including am meds on DOS but holding alan-I/arb/diuretics am DOS to avoid hypovolemia/hypotension in npo/anesthetized state Postop PRNs will be available for persistent elevations. 11. Depression, unspecified depression type Patient's mental state currently stable, continue home medications perioperatively and provide prn redirection. 12. Obesity, unspecified classification, unspecified obesity type, unspecified whether serious comorbidity present Body mass index is 34.79 kg/m . With history of BRANNON. Would follow pulmonary status closely with continuous pulse oximetry and provide aggressive pulmonary toilet including IS q1h w/a Weight loss strategies discussed with patient. 13. RLS (restless legs syndrome) Continue home medications and supportive care 14. Chronic systolic heart failure (HCC) LVEF 30-35%, No evidence of decompensated disease state, cont to follow clinically and manage expectantly Continue home medications and supportive care 15. AICD (automatic cardioverter/defibrillator) present Per protocol 16. Need for prophylactic measure Patient is at higher risk for postop DVT due to anticipated prolonged postoperative lower extremity immobilization and history of previous VTE. I recommend consideration of increased prophylaxis via bridging therapies(arixtra or lovenox sq) until INR returns to therapeutic via coumadin as well as aggressive non-pharmacologic modalities. I defer final choice of agent and timing to the attending surgeon and would recommend the 2012 ACCP consensus guidelines Elevated temp via oral thermometer in setting prolonged mask wearing, IR thermometer on recheck 98F at wrist. NO Symptoms of note c/w any acute illness. Suspect rebreathing has elevated oral temp. Chief Complaint Patient presents with Pre-operative Medical Risk Stratification History of Present Illness Tania Venegas is a 54 y.o. male who presents for preoperative medical risk stratification consult at the request of Evie Candelaria DO prior to 03/24 at [facility]; LEFT ANKLE HARDWARE REMOVAL, CALCANEAL OSTEOTOMY, TALONAVICULAR REVISION FUSION, 1ST TARSOMETATARSAL FUSION, ACHILLES TENDON LENGTHENING, DELTOID REPAIR . Pt presents for hardware removal from left ankle that was placed a year ago. Pt will be having hardware replaced and repairing previous work that was done on area. Pt is able to bear weight and walk independently but is quite debilitated due to pain. Pain is constant, severe with activity, life limiting, failing conservative management, and he is therefore on the schedule for necessary surgery Denies known exposure to COVID 19, recent travel especially to areas with significant community spread, history of positive test/treatment for COVID 19, or symptoms including but not limited to fever/chills/myalgias/arthralgias/cough/chest congestion or pain/loss of taste or smell consistent with acute viral syndrome concerning for COVID 19 The patient denies additional prodromal illness event or trauma Internal medicine consulted for preoperative medical evaluation as well as perioperative management of chronic medical issues. Patient reports chronic health conditions which include -CAD/ICM/lvef 30-35%/PAF/AICD/PCM all followed by Dr Brown -HTN/Anx/Dep/HLD all of many years duration follows with pcp -hx of DVT at time of colon resection for surgery >10yrs ago no recurrence The patient is maintained on appropriate pharmacological treatment. The patient reports no problems with prior anesthesia experiences. This patient reports functional capacity is at least 4 METs without symptoms of chest pain or shortness of breath. Please see below regarding status of active medical conditions and assessment and plan regarding details of preoperative medical risk stratification. Past Medical History: Diagnosis Date Anxiety Arthritis Atrial fibrillation (HCC) paroxysmal afib Cancer (HCC) colon Cataract CHF (congestive heart failure) (HCC) Chronic pain disorder Coronary artery disease Deep vein thrombosis (HCC) Depression Diastolic dysfunction Dyspnea Edema History of blood transfusion History of cardiac cath 08/2019 History of cardiac cath 04/2016 History of echocardiogram 01/2019 History of stress test date unknown Hypertension Restless legs syndrome Sleep apnea, obstructive cpap Systolic dysfunction Thrombus left atrium Past Medical History Pertinent Negatives: Diagnosis Date Noted Bleeding disorder (HCC) 03/23/2020 Blood transfusion reaction 03/23/2020 Complication of anesthesia 03/21/2020 Diabetes mellitus type I (HCC) 03/23/2020 Diabetes mellitus, type 2 (HCC) 03/23/2020 No blood products 03/23/2020 Rheumatoid arthritis (HCC) 03/23/2020 Past Surgical History: Procedure Laterality Date ABLATION WITH PHENOL CARDIAC DEFIBRILLATOR PLACEMENT CARDIOVERSION CHOLECYSTECTOMY 2010 COLECTOMY COLON SURGERY EYE SURGERY Right 01/2018 RETINA ATTACHMENT EYE SURGERY Right 05/2018 RETINA ATTACHMENT FOOT SURGERY Left 2016 FOOT SURGERY Right 2017 FOOT SURGERY Left 2018 HERNIA REPAIR HYDROSEAL 2013 JOINT REPLACEMENT Right 2019 hip JOINT REPLACEMENT Right 2010 HIP JOINT REPLACEMENT Left 2019 HIP ORTHOPEDIC SURGERY ORTHOPEDIC SURGERY Social History Tobacco Use Smoking status: Never Smoker Smokeless tobacco: Never Used Substance Use Topics Alcohol use: Yes Alcohol/week: 3.0 - 4.0 standard drinks Types: 3 - 4 Cans of beer per week Family History Problem Relation Age of Onset No Known Problems Mother Prostate cancer Father @ Prior to Admission medications Medication Sig Taking? Dose Freq acetaminophen (TYLENOL) 325 MG tablet Take 650 mg by mouth every 6 (six) hours as needed for pain . Yes 650 mg, Oral, Every 6 hours PRN amiodarone (CORDARONE) 200 MG tablet Take 200 mg by mouth every morning . Yes 200 mg, Oral, Every morning buPROPion (WELLBUTRIN XL) 300 MG 24 hr tablet Take 300 mg by mouth every morning Reasons: anxiousness associated with depression. Yes 300 mg, Oral, Every morning losartan (COZAAR) 50 MG tablet Take 50 mg by mouth every evening Reasons: pulmonary. Yes 50 mg, Oral, Every evening metoprolol tartrate (LOPRESSOR) 50 MG tablet Take 50 mg by mouth 2 (two) times a day Reasons: pulmonary function. Yes 50 mg, Oral, 2 times daily spironolactone (ALDACTONE) 25 MG tablet Take 25 mg by mouth every morning Reasons: visible water retention. Yes 25 mg, Oral, Every morning warfarin (COUMADIN) 5 MG tablet Take 5 mg by mouth every evening Reasons: treatment to prevent blood clots in chronic atrial fibrillation. Yes 5 mg, Oral, Every evening No Known Allergies Review of Systems Constitution: (negative) HENT: (negative) Eyes: (negative) Respiratory: (negative) Cardiovascular: no chest pain, leg swelling, no palpitations Gastrointestinal: (negative) Genitourinary: (negative) Musculoskeletal: (negative) Skin: (negative) Neurological: (negative) Hematological: bruises/bleeds easily Physical Exam BP 128/86 Pulse 98 Comment: hand held thermometer Temp 100.1 F (37.8 C) (Oral) Resp 18 Ht 6' 1 Wt 119.6 kg (263 lb 10.7 oz) SpO2 95% BMI 34.79 kg/m General Appearance - NAD; Conversant, heavyset Skin - Normal turgor; No rashes noted Eyes - Pupils equal in size bilaterally; Anicteric sclerae ENMT - Hearing intact; Oropharynx clear with moist mucosa Neck - Trachea midline, No goiter noted Cardiovascular - Regular rate and rhythm;, no rubs murmurs gallops extra sounds noted. No peripheral edema noted Respiratory - Clear to auscultate bilaterally; No increased work of breathing or accessory muscle use noted Gastrointestinal - Soft, nondistended and nontender; No hepatosplenomegaly noted, neg rtrg or cvatb, +bs Musculoskeletal - No calf tenderness noted bilaterally;, dorsiflexion intact decreased ROM left ankle with some swelling and tenderness (baseline per patient). No clubbing or cyanosis of digits noted Psychiatric/Neuro - Alert and Oriented x 3; Appropriate mood and affect, MURO and neg FND appreciated Data Preprocedure Sleep Apnea Assessment - High Risk (3/3) Sleep Apnea in the patient's Active Problem List or Medical History: yes 1. History of apparent airway obstruction during sleep: (1 point for this category) Do you snore frequently, or snore loud enough to be heard through a closed door?: no Do you awaken from sleep with a choking sensation or have periods during sleep when someone has observed you pausing between breaths?: no 2. Somnolence of the patient: (1 point for this category) Do you find yourself frequently sleepy despite adequate hours of sleep the night before?: no Do you fall asleep easily while: watching TV, reading, riding in or driving a car?: no 3. Predisposing physician characteristics: (1 point for this category, 2 points if the BMI ? 40) BMI (Calculated): 34.8 Neck Circumference (inches): 18 inches A copy of this report has been made available to the referring physician in the hospital's EMR and/or by being faxed to the surgeon's office/surgery center. documented in this encounter Brief Op Note - Irwin Molina DPM - 03/24/2020 12:06 PM EDT Miscellaneous Notes (unrecog nized section and content) Brief Post Operative Note Patient Name: Tania Venegas : 1965 (54 y.o.) Date of Service: 03/24/2020 CSN: [id number] Procedure(s): LEFT ANKLE HARDWARE REMOVAL, CALCANEAL OSTEOTOMY, TALONAVICULAR REVISION FUSION, 1ST TARSOMETATARSAL FUSION, OSTEOTOMY TALUS Pre-Operative Diagnoses: * M96.0, M19.072, S93.422A Post-Operative Diagnoses: Surgeon(s) and Role: * Evie Candelaria, DO - Primary * John Saravia DO - Resident - Assisting * Irwin Molina DPM - Fellow Anesthesiologist: John Pauldaniella Ricardo MD CHILD CARE COORDINATOR: Mira Tao CRNA Coal Cutting Machine Operator: Mari Mitchell RN Scrub Person Relief: ST Celia Scrub Person: ST Lakesha Nurse Float: Araceli Shafer RN Operative findings: consistent with pre op diagnosis Intra and immediate post-operative complications: none Type of anesthesia used: Regional, General Estimated blood loss: 50 mL Estimated urine output: Refer to surgical log Specimen(s): * No specimens in log * Implant(s): Implant Name Type Inv. Item Serial No. Special Agent Secret Service Lot No. LRB No. Used Action FILLER 10CC BONE VOID CERAMENT - [id number] FILLER 10CC BONE VOID CERAMENT BONE SUPPO [id number] Left 1 Implanted 4 screws and 2 wedges Left 6 Explanted 5 screws and 1 plate Left 1 Explanted BioActive Bone Graft Putty 7.5cc MEDLINE IN [id number] Left 1 Implanted SCREW 7 X 55 X 16MM UMESH HEADED SHORT THRD UNITE - [id number] SCREW 7 X 55 X 16MM UMESH HEADED SHORT THRD UNITE MEDLINE IN Left 2 Implanted PLATE 18MM Z BETA MOTOBAND MAX - [id number] PLATE 18MM Z BETA MOTOBAND MAX [employer] [id number] Left 1 Implanted DynaForce Plate Sterile Instrument Kit [employer] [id number] Left 1 Implanted KIT 18 X 18 X 18MM SUPERELASTIC MOTOCLIP HIMAX - [id number] KIT 18 X 18 X 18MM SUPERELASTIC MOTOCLIP HIMAX [employer] [id number] Left 1 Implanted SCREW 4.5 X 50MM UMESH HEADED UNITE - [id number] SCREW 4.5 X 50MM UMESH HEADED UNITE MEDLINE IN Left 2 Implanted SCREW 3.5 X 30MM NON LOCK TI ALLOY MOTOBAND CP - [id number] SCREW 3.5 X 30MM NON LOCK TI ALLOY MOTOBAND CP [employer] [id number] Left 2 Implanted Drain(s): * No LDAs found * Wound(s): Wound 03/24/20 Surgical Wound Foot Left (Active) Irwin Molina DPM 03/24/2020 12:06 PM documented in this encounter Care Teams (unrecognized sec tion and content) Tool Grinder Operator Surface Relationship Specialty Start Date End Date Alexander Cox MD [address] [place] [phone] PCP - Referring 2 Clinical Cardiac Electrophysiology 07/19/17 Oliver Springer Jr., DO [address] [place] [address] PCP - General Internal Medicine 03/17/20 [place] [address] [place] [address] Interventional Cardiology 11/10/19 Evie Candelaria, DO [address] [place] [address] Orthopaedic Surgery 03/18/20 Tool Grinder Operator Surface Relationship Specialty Start Date End Date Alexander Cox MD [address] [place] [phone] PCP - Referring 2 Clinical Cardiac Electrophysiology 07/19/17 Oliver Springer Jr., DO [address] [place] [address] PCP - General Internal Medicine 03/17/20 [place] [address] [place] [phone] Interventional Cardiology 11/10/19 Evie Candelaria, DO [address] [place] [address] Orthopaedic Surgery 03/18/20 Tool Grinder Operator Surface Relationship Specialty Start Date End Date Alexander Cox MD [address] [place] [phone] PCP - Referring 2 Clinical Cardiac Electrophysiology 07/19/17 [place] [address] [place] [id number] PCP - General Internal Medicine 03/17/20 [place] [address] [place] [phone] Interventional Cardiology 11/10/19 Evie Candelaria, DO [address] [place] [address] Orthopaedic Surgery 03/18/20 Tool Grinder Operator Surface Relationship Specialty Start Date End Date Alexander Cox MD [address] [place] [phone] PCP - Referring 2 Clinical Cardiac Electrophysiology 07/19/17 Oliver Springer Jr., DO [address] [place] [address] PCP - General Internal Medicine 03/17/20 [place] [address] [place] [address] Interventional Cardiology 11/10/19 Evie Candelaria, DO [address] [place] [address] Orthopaedic Surgery 03/18/20 Tool Grinder Operator Surface Relationship Specialty Start Date End Date Alexander Cox MD [address] [place] [phone] PCP - Referring 2 Clinical Cardiac Electrophysiology 07/19/17 Oliver Springer Jr., DO [address] [place] [id number] PCP - General Internal Medicine 03/17/20 [place] [address] [place] [phone] Interventional Cardiology 11/10/19 Evie Candelaria, DO [address] [place] [address] Orthopaedic Surgery 03/18/20 Tool Grinder Operator Surface Relationship Specialty Start Date End Date Alexander Cox MD [address] [place] [phone] PCP - Referring 2 Clinical Cardiac Electrophysiology 07/19/17 Oliver Springer Jr., DO [address] [place] [phone] PCP - General Internal Medicine 03/17/20 [place] [address] [place] [phone] Interventional Cardiology 11/10/19 Evie Candelaria, DO [address] [place] [address] Orthopaedic Surgery 03/18/20 Tool Grinder Operator Surface Relationship Specialty Start Date End Date Alexander Cox MD [address] [place] [phone] PCP - Referring 2 Clinical Cardiac Electrophysiology 07/19/17 Oliver Springer Jr., DO [address] [place] [phone] PCP - General Internal Medicine 03/17/20 [place] [address] [place] [phone] Interventional Cardiology 11/10/19 Evie Candelaria, DO [address] [place] [address] Orthopaedic Surgery 03/18/20 Tool Grinder Operator Surface Relationship Specialty Start Date End Date Alexander Cox MD [address] [place] [phone] PCP - Referring 2 Clinical Cardiac Electrophysiology 07/19/17 Oliver Springer Jr., DO [address] [place], [place] [phone] PCP - General Internal Medicine 03/17/20 [place] [address] [place] [address] Interventional Cardiology 11/10/19 Evie Candelaria DO [address] [place] [address] Orthopaedic Surgery 03/18/20 Tool Grinder Operator Surface Relationship Specialty Start Date End Date Alexander Cox MD [address] [place] [phone] PCP - Referring 2 Clinical Cardiac Electrophysiology 07/19/17 Oliver Springer Jr., DO [address] [place] [address] PCP - General Internal Medicine 03/17/20 [place] [address] [place] [address] Interventional Cardiology 11/10/19 Evie Candelaria DO [address] [place] [address] Orthopaedic Surgery 03/18/20 Tool Grinder Operator Surface Relationship Specialty Start Date End Date Alexander Cox MD [address] [place] [phone] PCP - Referring 2 Clinical Cardiac Electrophysiology 07/19/17 Oliver Springer Jr., DO [address] [place] [address] [phone] PCP - General Internal Medicine 03/17/20 [place] [address] [place] [phone] Interventional Cardiology 11/10/19 Evie Candelaria DO [address] [place] [address] Orthopaedic Surgery 03/18/20 Tool Grinder Operator Surface Relationship Specialty Start Date End Date Alexander Cox MD [address] [place] [phone] PCP - Referring 2 Clinical Cardiac Electrophysiology 07/19/17 Oliver Springer Jr., DO [facility] [place] [address] PCP - General Internal Medicine 03/17/20 [place] [address] [place] [phone] Interventional Cardiology 11/10/19 Evie Candelaria DO [address] [place] [address] Orthopaedic Surgery 03/18/20 FOR RECORDS PERTAINING TO PATIENTS WHO ARE OR HAVE BEEN ENROLLED IN A CHEMICAL DEPENDENCY/SUBSTANCEABUSE PROGRAM, SOME INFORMATION MAY BE OMITTED. This clinical summary was aggregated from multiple sources. Caution should be exercised in using it in the provision of clinical care. This summary normalizes information from multiple sources, and as a consequence, information in this document may materially change the coding, format and clinical context of patient data. In addition, data may be omitted in some cases. CLINICAL DECISIONS SHOULD BE BASED ON THE PRIMARY CLINICAL RECORDS. [facility] [employer] provides no warranty or guarantee of the accuracy or completeness of information in this document.
--- NOTE | 2024-02-25 11:05 | ECG_ITS ---
The [facility] Test Date: 2024-02-25 Pat Name: TANIA CERVANTES Department: Room: - Gender: Male Commissioning Manager: : 1965 Requested By: MAINE SPRINGER Order Number: [id number] Reading MD: THEODORA DOTSON Measurements Intervals [place] Rate: 87 P: 46 MA: 172 QRS: -85 QRSD: 130 T: 90 QT: 410 QTc: 455 Interpretive Statements 32[address] Electronic ventricular pacemaker 9120 atypical ECG Compared to ECG 07/20/2021 17:37:00 Ventricular premature complex(es) no longer present Electronically Signed On 02-26-2024 19:15:47 EDT by THEODORA DOTSON
--- NOTE | 2024-02-25 11:05 | ED.DIZZY1 ---
HPI - Dizziness General Chief Complaint: Dizziness Stated Complaint: DIZZY, LIGHT HEADED Time Seen by Provider: 02/25/24 11:01 Source: patient Mode of arrival: walk-in Limitations: no limitations History of Present Illness HPI Narrative: 58-year-old male presents to the emergency department for dizziness. He has had intermittent episodes of 4 to 5 seconds of dizziness. He was diagnosed with PVCs by his scanning supervisor. No fever or vomiting and he has been taking all of his medications. He has not had syncope. Related Data Allergies Allergy/AdvReac Type Severity Reaction Status Date / Time No Known Drug Allergies Allergy Verified 02/25/24 10:46 Review of Systems ROS Narrative A ten point review of systems is negative except as noted above. Exam Narrative Exam Narrative: Nurses note and vital signs reviewed and patient is not hypoxic. General: The patient appears well and in no apparent distress. Patient is resting comfortably on cart. Skin: Warm, dry, no pallor noted. There is no rash noted. Head: Normocephalic, atraumatic Eye: Normal conjunctiva, no drainage Ears, Nose, Mouth, and Throat: oral mucosa is moist. Nares patent. Cardiovascular: Regular Rate and Rhythm Respiratory: Patient is in no distress, no accessory muscle use, lungs are clear to auscultation, no wheezing, rales or rhonchi Back: non-tender GI: Soft and nontender Musculoskeletal: The patient has no evidence of calf tenderness, no pitting edema, symmetrical pulses noted bilaterally Neurological: A&O, normal speech Psychiatric: Cooperative Constitutional Vital Signs, click to edit/add: Last Vital Signs Temp 97.2 F L 02/25/24 10:50 Pulse 77 02/25/24 12:00 Resp 17 02/25/24 10:50 BP 104/76 02/25/24 12:00 Pulse Ox 91 L 02/25/24 12:00 O2 Del Method Room Air 02/25/24 10:50 Course Vital Signs Vital signs: Vital Signs Pulse Rate 80 02/25/24 10:49 Temperature 97.2 F L 02/25/24 10:50 Pulse Rate 77 02/25/24 12:00 Respiratory Rate 17 02/25/24 10:50 Blood Pressure 104/76 02/25/24 12:00 Pulse Oximetry 91 L 02/25/24 12:00 Oxygen Delivery Method Room Air 02/25/24 10:50 MDM - Dizziness MDM Narrative Medical decision making narrative: His workup here is negative. He has had some PVCs and he is going to see his scanning supervisor at his appointment tomorrow. There is no indication for admission to the hospital. Treatment diagnosis and follow-up were discussed with the patient Differential Diagnosis Differential diagnosis: Likely benign paroxysmal positional vertigo, orthostatic hypotension and other (PVCs) Lab Data Attestation: I reviewed the patient's lab results. Labs: Lab Results 02/25/24 Range/Units 10:57 WBC 6.7 (4.0-11.0) 10^3/uL RBC 4.47 L (4.70-6.10) 10^6/uL Hgb 13.6 L (14.0-18.0) g/dL Hct 41.7 L (42.0-54.0) % MCV 93.3 (80.0-94.0) fL MCH 30.4 (25.9-34.0) pg MCHC 32.6 (29.9-35.2) g/dL RDW 13.2 (11.0-15.0) % Plt Count 232 (150-450) 10^3/uL MPV 9.9 (9.5-13.5) fL Neut % (Auto) 57.4 (43.0-75.0) % Lymph % (Auto) 26.9 (20.5-60.0) % [place] % (Auto) 14.1 H (1.7-12.0) % Eos % (Auto) 0.9 (0.9-7.0) % Baso % (Auto) 0.3 (0.2-2.0) % Neut # (Auto) 3.8 (1.4-6.5) 10^3/uL Lymph # (Auto) 1.8 (1.2-3.8) 10^3/uL [place] # (Auto) 0.9 H (0.3-0.8) 10^3/uL Eos # (Auto) 0.1 (0.0-0.7) 10^3/uL Baso # (Auto) 0.0 (0.0-0.1) 10^3/uL Abs Immat Gran (auto) 0.03 (0.00-0.03) 10^3/uL Imm/Tot Granulo (auto) 0.4 (0.0-0.5) % Sodium 137 (136-145) mmol/L Potassium 3.9 (3.5-5.1) mmol/L Chloride 102 (98-107) mmol/L Carbon Dioxide 25.8 (21.0-32.0) mmol/L Anion Gap 13.1 BUN 21.0 H (7.0-18.0) mg/dL Creatinine 1.22 (0.70-1.30) mg/dL Est GFR ( Amer) >60 (>=60) Est GFR (Non-Af Amer) >60 (>=60) BUN/Creatinine Ratio 17.2 Glucose 98 (74-106) mg/dL Calcium 8.6 (8.5-10.1) mg/dL Magnesium 1.7 L (1.8-2.4) mg/dL Troponin I High Sens 19.0 (4.0-76.1) pg/mL ECG Data Attestation: I personally reviewed and interpreted this ECG as follows: (EKG on my interpretation shows paced rhythm with PVCs) Discharge Plan Discharge Stand Alone Forms: Portal Instructions Chief Complaint: Dizziness Clinical Impression: Dizziness, Frequent PVCs Patient Disposition: Home, Self-Care Time of Disposition Decision: 13:06 Condition: Good Mode of Transportation: Private Vehicle Print Language: Albanian Instructions: Dizziness (ED), Premature Ventricular Contractions (ED) Additional Instructions: See your scanning supervisor at your appointment tomorrow Referrals: MAINE SPRINGER MD [Primary Care Provider] - 1 week
[2024-02-25 11:18] LABS: Basophils Percent Auto 0.3 % (0.2-2.0); Eosinophils Absolute Auto 0.1 10^3/uL (0.0-0.7); Eosinophils Percent Auto 0.9 % (0.9-7.0); Hematocrit 41.7 % (42.0-54.0); Hemoglobin 13.6 g/dL (14.0-18.0); Immature Granulocytes Abs Auto 0.03 10^3/uL (0.00-0.03); Immature Granulocytes Pct Auto 0.4 % (0.0-0.5); Lymphocytes Absolute Auto 1.8 10^3/uL (1.2-3.8); Lymphocytes Percent Auto 26.9 % (20.5-60.0); Mean Corpuscular HGB Conc 32.6 g/dL (29.9-35.2); Mean Corpuscular Hemoglobin 30.4 pg (25.9-34.0); Mean Corpuscular Volume 93.3 fL (80.0-94.0); Mean Platelet Volume 9.9 fL (9.5-13.5); Monocytes Absolute Auto 0.9 10^3/uL (0.3-0.8); Monocytes Percent Auto 14.1 % (1.7-12.0); Neutrophils Absolute Auto 3.8 10^3/uL (1.4-6.5); Neutrophils Percent Auto 57.4 % (43.0-75.0); Platelet Count 232 10^3/uL (150-450); Red Blood Count 4.47 10^6/uL (4.70-6.10); Red Cell Distribution Width 13.2 % (11.0-15.0); White Blood Count 6.7 10^3/uL (4.0-11.0)
[2024-02-25 11:31] LABS: Anion Gap 13.1; BUN Creatinine Ratio 17.2; Calcium 8.6 mg/dL (8.5-10.1); Carbon Dioxide 25.8 mmol/L (21.0-32.0); Chloride 102 mmol/L (98-107); Estimated GFR (African America >60 (>=60); Estimated GFR (Non-African Ame >60 (>=60); Glucose 98 mg/dL (74-106); Magnesium 1.7 mg/dL (1.8-2.4); Potassium 3.9 mmol/L (3.5-5.1); Sodium 137 mmol/L (136-145)
== END 2024-02-25 13:19 | disposition home or self-care (01) ==
PROVIDERS: Emergency Provider Emergency Medicine; PCP Internal Medicine
DX: R42 Dizziness and giddiness (principal); I49.3 Ventricular premature depolarization; Z51.81 Encounter for therapeutic drug level monitoring; Z79.01 Long term (current) use of anticoagulants; I48.91 Unspecified atrial fibrillation
CPT/HCPCS: 36415; 71045; 80048; 81001; 83735; 84484; 85025; 85610; 93005; 99285; G0463

== ENCOUNTER 2024-03-11 08:00 | Outpatient (OUT) | payer MEDICARE, SELFPAY ==
--- NOTE | 2024-03-11 08:00 | CA_ITS ---
Patient Name: TANIA CERVANTES MR#: [id number] : 1965 Exam Date: 03/11/2024 Ordering Doctor: DR MOJGAN IBRAHIM M.D. ECHOCARDIOGRAM REPORT PROCEDURE: CA ECHO DOPPLER COMPLETE INDICATIONS: Acute combined heart failure, AICD COMPARISON: None. DESCRIPTION: COMPLETE ECHOCARDIOGRAM Real-time transthoracic echocardiography with 2D, M-mode, spectral and color flow Doppler performed. QUALITY: Technical quality was good. 73 , 260#, BSA 2.41 m2, BP 124/68 LEFT VENTRICLE: Normal chamber size. Mild concentric left ventricular hypertrophy. Calculated left ventricular ejection fraction is 31%. LV EF: Global left ventricular systolic function is difficult to assess but appears reduced; visually estimated ejection fraction is 25 to 30%. Unable to assess regional wall motion abnormalities. DIASTOLIC: Grade III diastolic dysfunction. ATRIAL SEPTUM: Visually appears intact. LEFT ATRIUM: Severe dilatation. RIGHT ATRIUM: Moderate dilatation. RIGHT VENTRICLE: Mild dilatation. Systolic function appears reduced. Pacer wire present. TRICUSPID VALVE: Normal mobility and thickness. No stenosis with trivial regurgitation. Doppler studies reveal mildly (35-45) elevated right sided pressures. RVSP 39 mmHg MITRAL VALVE: Normal mobility and thickness. No evidence of mitral valve stenosis. Mild mitral annular calcification. Trivial mitral regurgitation. AORTIC VALVE: Normal trileaflet appearance. No visible sclerosis. Normal leaflet mobility. No evidence of aortic valve stenosis. No aortic regurgitation. AORTIC ROOT: Normal diameter and appearance. Ascending aorta is normal in size. PULMONIC VALVE: Normal thickness and mobility. No stenosis. Mild regurgitation. PERICARDIUM: No evidence of pericardial effusion. IVC: Collapses with inspirations. IVC is normal in size. CONCLUSION: 1. Global left ventricular systolic function is difficult to assess but appears reduced; visually estimated ejection fraction is 25 to 30% 2. The right ventricle is mildly dilated with reduced systolic function 3. Biatrial enlargement 4. Grade 3 diastolic dysfunction 5. Mildly increased left ventricular wall thickness 6. Mildly elevated right ventricular systolic pressure; RVSP 39 mmHg 7. Mild pulmonic regurgitation Adult Echocardiography Procedure Report Left Ventricle LVEDD (3.7 - 5.6 cm): 5.83 cm LVESD (2.2 - 4.0 cm): 5.35 cm LVIVS thickness (0.6 - 1.2 cm): 1.11 cm LVPW thickness (0.5 - 1.0 cm): 1.21 cm e': 0.05 m/s E - e': 15.54 LVOT Max Gradient: 2.12 mm[Hg] LVOT Area (cm2): 0.73 m/s Peak Velocity (LVOT): 0.73 m/s Mean Velocity (LVOT): 0.53 m/s LVOT Diameter 2.34 cm Left Atrium LA Volume Index (2D A2C): 53.93 ml/m2 Left Atrium Systolic Dimension: 4.86 cm Mitral Valve MV E to A Ratio: 2.13 Mitral Valve A-Wave Peak Velocity: 0.38 m/s Mitral Valve E-Wave Peak Velocity: 0.82 m/s Right Ventricle Aorta AO Root Diam: 3.42 cm Ascending Ao Diam: 3.46 cm Aortic Valve AoV Area (Peak John): 2.72 cm2, 2.72 cm2 AoV Area (VTI): 2.79 cm2, 2.79 cm2 Peak Velocity(Antegrade Flow): 1.15 m/s Peak Gradient(Antegrade Flow): 5.32 mm[Hg] Mean Velocity(Antegrade Flow): 0.85 m/s Mean Gradient(Antegrade Flow): 3.18 mm[Hg] Velocity Time Integral: 23.51 cm Tricuspid Valve Peak Velocity (Regurgitant Flow): 3.00 m/s Pulmonic Valve Peak Gradient: 3.62 mm[Hg], 2.78 mm[Hg] Right Atrium Right Atrium Systolic Pressure: 98.29 ml, 98.29 ml Dictated by: Chelsea Ramos M.D. on 03/11/2024 at 15:31 Approved by: Chelsea Ramos M.D. on 03/11/2024 at 15:35
--- OUTSIDE RECORDS SUMMARY | 2024-03-11 08:07 | XMS_ITS | CCD ---
Author Organization [facility] Care Team Providers Care Scenic Artist Name Role Phone [place] PARHAM Referring Unavailable OLIVER SPRINGER Primary Care Unavailable POCJUS, [place] DYKES Referring Unavailable OLIVER SPRINGER Primary Care Unavailable POCOS, [place] YDKES Referring Unavailable OLIVER SPRINGER Primary Care Unavailable Oliver Springer Primary Care Provider [phone] EVIE CANDELARIA Admitting Unamonica CANDELARIA, EVIE MARIN Attending EVIE Edwards Admitting Unavai labEVIE Garrison Referring UnaOLIVER Garcia Primary Care Unavailable JACE ZHAO Attending Unavailable UNKNOWN, PROVIDER Admitting Unavailable UNKNOWN, PROVIDER Attending Unavailable OLIVER SPRINGER Referring Unavailable OLIVER SPRINGER Primary Care Unavailable Oliver Springer DO Primary Care Provider Alexander Cox MD Unavailable Abhijit Zelaya MD Unavailable Gian Moran DO, Charles L Primary Care Provider Evie Candelaria DO Unavailable Alexander Cox MD Unavailable Abhijit Zelaya MD Unavailable Gian Moran DO, Charles L Primary Care Provider Evie Candelaria DO Unavailable SHAIKH Dereck GARCÍA Attending Unavailable SHAIKH Dereck [...] Unavailable VALONE, DR GROVE Primary Care Unavailable Brooke RAMOS, Alexander Weinberg Unavailable Abhijit Zelaya MD Unavailable [phone] Gian Moran DO, Charles L Primary Care Provider Evie Candelaria DO Unavailable OLIVER SPRNIGER JR. Primary Care UnavailOLIVER Jarquin JR. Referring Unavailabl e AJIT HURTADO Attending Unavailable OLIVER SPRINGER JR. Primary Care Unavailabl OLIVER Buck JR. Referring Unavailabl AUTUMN Wu Attending Unavailable OLIVER SPRINGER JR. Referring Unavailabl e VALONE JR., OLIVER Gomes Primary Care Unavailabl AUTUMN Wu Attending Unavailable ADRIELTANGELA , OLIVER Gomes Referring Unavailabl e VALONE JR., OLIVER Gomes Primary Care Unavailabl e AJIT HURTADO Attending Unavailable GIAN GEORGE., OLIVER Gomes Referring Unavailabl e VALONE JR., OLIVER Gomes Primary Care UnavailALEXANDER Mariscal Attending Unavailable GIAN GEORGE., OLIVER Gomes Primary Care Unavailabl e VALONE [...] VALONE JR., OLIVER Gomes Primary Care Unavailabl ALEXANDER Mijares Referring Unavailable DERRICK NUNEZ Attending Unavailable GIAN MORAN, OLIVER Gomes Referring Unavailabl e VALONE , OLIVER Gomse Primary Care Unavailabl ALEXANDER Mijares Attending Unavailable KELLY ELLISON Attending Unavailable MITALI ALEGRIA Attending Unavailable MARIOLA YU Referring Unavailable Allergies Allergy Classification Reported Allergen(s) Allergy Type Date of Onset Reaction(s) Facility (12 sources) *Seasonal Propensity to adverse reactions to substance 05-09-2017 [facility] Medications Current Medications Medication Drug Class(es) [...] Start: 06-03-2023 take 0.5 tablet by m outh once daily AMIOdarone 200 MG tablet Indications: [...] Active Start: 12-21-2021 take 0.5 tablet by m outh twice daily Entresto 49-51 MG tablet Take [...] End: 03-24-2020 5 mL, Other, Once, Yvonne 420 at 0715, For 1 dose, Pre-Procedure [] for anesthesia block administration 5 ml midazolam 1 mg/ml injection (1 source) Benzodiazepine Start: 03-24-2020 End: 03-24-2020 2 mg, Intravenous, Once, Yvonne 4 at 0715, For 1 dose, Pre-Procedure Pre-proced [...] Coronary atherosclerosis; Translations: [Atherosclerotic heart disease of [place] coronary artery without angina pectoris] Onset: 09-04-2023 Chronic Other aftercare (2 sources) Patient encounter status; Translations: [Other terminal makeup operator (current) drug therapy] Episodic Other aftercare (5 sources) Encounter for therapeutic drug level monitoring; Translations: [ENC THERAPEUTC DRUG LEVL MONITORING] Onset: 03-23-2023 Episodic Other aftercare (1 source) 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; 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] Onset: 04-24-2023 Episodic Other [...] te Episodic/Chronic Other aftercare (2 sources) Other fci (current) drug therapy; Translations: [Other fci (current) drug therapy] Onset: 05-23-2023 Episodic Other non-traumatic joint disorders (2 sources) Hip pain Episodic Results Test Name Value Interpretation Reference Range Facility Office Visiton 02-26-2024 Follow-up visit [id number] Tania Venegas 1965 M Date Provider Department Center 02/26/2024 Faiza-MITALI ALEGRIA CARD [facility] Family History Problem Relation Age of Onset COPD Father Other Father Family Status - Relation Status Age at Father Level of Service:85720 [place] OFFICE/OUTPATIENT ESTABLISHED MOD MDM 30 MIN Reason for Visit and Comments: Follow-up [206766] - Patient is here today with increased sob and dizziness Was evaluated in the ER yesterday Normal [facility] ALP ALT Manuel 01-09-2024 ALP [Catalytic activity/Vol] 66 U/L Normal 32-126 [facility] Comment on above: Performed By: #### E NZ3 #### [facility] (DEFAULT) [address] [place] [address] ALT [Catalytic activity/Vol] 10 U/L Normal 10-52 [facility] Comment on above: Performed By: #### E NZ3 #### [facility] (DEFAULT) [address] [address] AST [Catalytic activity/Vol] 21 U/L Normal 10-39 [facility] Comment on above: Performed By: #### E NZ3 #### [facility] (DEFAULT) [address] [place] [address] T4 FREEon 01-09-2024 Free T4 [Mass/Vol] 1.43 ng/dL Normal 0.89-1.76 [facility] Comment on above: Performed By: #### T SH, FT4 #### [facility] (DEFAULT) [address] [place] [address] TSHon 01-09-2024 TSH 1.456 uIU/mL Normal 0.550-4.780 [facility] Comment on above: Performed By: #### T SH, FT4 #### [facility] (DEFAULT) [address] [address] BNP, MANUAL ENTERon 12-13-20 23 B-Type Natriuretic Peptide (BNP), MANUAL ENTER 1159 [facility] Comment on above: NT-PRO BNP [facility] CHEM 7 PANEL, MANUAL ENTERon 11-06-2023 Blood Urea Nitrogen (BUN), MANUAL ENTER 17.0 [facility] BUN/CREA RATIO, [facility]UAL [facility] CALCIUM (CA), MANUAL ENTER [facility] Carbon Diox(CO2), MANUAL ENTER 31.1 [facility] Chloride (CL), MANUAL ENTER 104 mmol/L [facility] CREATININE, SERUM, MANUAL ENTER 1.10 mg/dL [facility] GLUCOSE, MANUAL ENTER [facility] MAGNESIUM (MG), MANUAL ENTER [facility] Phosphate (PO4), Manual Enter [facility] POTASSIUM (K+), MANUAL ENTER 3.9 [facility] SODIUM (NA), [facility]UAL [facility]TER [facility] ESTIMATED GFR, NON A DAMIAN, MANUAL ENTERon 11-06-2023 ESTIMATED GFR, NON AMER, MANUAL ENTER [facility] Office Visiton 09-04-2023 Follow-up visit [id number] Tania Venegas 1965 M Date Provider Department Center 09/04/2023 120-TERRA, KELLY CARD [facility] Family History Problem Relation Age of Onset COPD Father Other Father Family Status - Relation Status Age at Father Level of Service:11565 [place] OFFICE/OUTPATIENT ESTABLISHED MOD MDM 30-39 MIN Normal [facility] ALP ALT Manuel 05-23-2023 ALP [Catalytic activity/Vol] 65 U/L Normal 32-126 [facility] Comment on above: Performed By: #### TANVIR STALEY KKO #### [facility] (DEFAULT) [address] [address] ALT [Catalytic activity/Vol] 7 U/L Low 10-52 [facility] Comment on above: Performed By: #### TANVIR STALEY KKO #### [facility] (DEFAULT) [address] [place] [address] AST [Catalytic activity/Vol] 25 U/L Normal 10-39 [facility] Comment on above: Performed By: #### Manny MERRILL MGO, KKO #### [facility] (DEFAULT) [address] [place] [address] MAGNESIUMon 05-23-2023 Magnesium [Mass/Vol] 2.0 mg/dL Normal 1.6-2.6 [facility] Comment on above: Performed By: #### Manny MERCER3, MGO, KKO #### [facility] (DEFAULT) [address] [place] [address] POTASSIUMon 05-23-2023 Potassium [Moles/Vol] 4.6 mmol/L Normal 3.5-5.0 [facility] Comment on above: Performed By: #### TANVIR STALEY, ANGELO #### [facility] (DEFAULT) [address] [place] [address] TSH W/FT4 REFLEXon 3 TSH 1.254 uIU/mL Normal 0.550-4.780 [facility] Comment on above: Performed By: #### T SHQR #### [facility] (DEFAULT) [address] [place] [address] FUNCTIONAL VO2 TESTINGOrdere d By: Arpan Ya on 01-10-2023 % APHRMAX 77 % [facility] Work Phone: APHRMAX 163 bpm [facility] Work Phone: Baseline DBP 69 mmHg [facility] Work Phone: Baseline DBP 66 mmHg [facility] Work Phone: Baseline HR 76 bpm [facility] Work Phone: Baseline HR 75 bpm [facility] Work Phone: Body surface area Derived from formula 2.39 m2 [facility] Work Phone: Estimated workload 8.0 METS [facility] Work Phone: Exercise duration (min) 6 min [facility] Work Phone: Exercise duration (sec) 42 sec [facility] Work Phone: lowest spo2 97 [facility] Work Phone: [facility] VO2 METS 8 [facility] Work Phone: Peak DBP 66 mmHg [facility] Work Phone: Peak HR 125 bpm [facility] Work Phone: Peak percent predicted 77 OS [facility] Work Phone: Peak SBP 130 mmHg [facility] Work Phone: peak SpO2 97 [facility] Work Phone: PEAKVO2 20 [facility] Work Phone: percent of peak vo2 87 [facility] Work Phone: Rate Pressure Product [address] [facility] Work Phone: RER 1.24 [facility] Work Phone: RPE 19 [facility] Work Phone: RR MAX 28 [facility] Work Phone: ventilatory efficiency/vco2 30 [facility] Work Phone: vo2 at anaerobic threshold 18.3 [facility] Work Phone: FUNCTIONAL VO2 TESTINGon There is a mild reduction in cardiopulmonary exercise capacity. Peak VO2 20.0, which is 77% predicted. RER: (1.24), excellent exercise effort. Ventilatory efficiency is normal. Ve/VCO2 30. Estimated workload 8 METS. The resting blood pressure of 116/69 mmHg ykle to a maximum blood pressure of 130/66 [...] Ya on 01-10-2023 Baseline SBP 116 mmHg [facility] Work Phone: [facility] Work Phone: No Panel Informationon 01-10 Radiology Study observation (narrative) [facility] Vital signsOrdered By: Arpan Ya on 01-10-2023 Oxygen saturation in Blood 97 % [facility] Work Phone: PROF CHEM 8 (BAS METB)on Anion gap [Moles/Vol] 10.4 mmol/L Normal [facility] Comment on above: Performed By: #### B MP #### [facility] [address] [place] [address] Dr. Robbin Meek Calcium [Mass/Vol] 8.7 mg/dL Normal 8.5-10.1 [facility] Comment on above: Performed By: #### B MP #### [facility] [address] [address] [address] Robbin Meek Chloride [Moles/Vol] 101 mmol/L Normal 98-107 [facility] Comment on above: Performed By: #### B MP #### [facility] [address] [address] [address] Robbin Meek CO2 [Moles/Vol] 29.9 mmol/L Normal 21.0-32.0 [facility] Comment on above: Performed By: #### B MP #### [facility] [address] [address] [address] Robbin Meek Creatinine [Mass/Vol] 1.15 mg/dL Normal 0.70-1.30 [facility] Comment on above: Performed By: #### B MP #### [facility] [address] [address] [address] Robbin Meek EGFR-AF MACEDONIAN >60 Normal >=60 [facility] Comment on above: Performed By: #### B MP #### [facility] [address] [address] [address] Robbin Meek EGFR-NON AF MACEDONIAN >60 Normal >=60 [facility] Comment on above: Performed By: #### B MP #### [facility] [address] [address] [address] Robbin Meek Glucose [Mass/Vol] 101 mg/dL Normal 74-106 [facility] Comment on above: Performed By: #### B MP #### [facility] [address] [address] [address] Robbin Meek Potassium [Moles/Vol] 4.3 mmol/L Normal 3.5-5.1 [facility] Comment on above: Performed By: #### B MP #### [facility] [address] [address] [address] Robbin Meek Sodium [Moles/Vol] 137 mmol/L Normal 136-145 [facility] Comment on above: Performed By: #### B MP #### [facility] [address] [address] [address] Robbin Meek Urea nitrogen [Mass/Vol] 17.0 mg/dL Normal 7.0-18.0 [facility] Comment on above: Performed By: #### B MP #### [facility] [address] [address] [address] Robbin Meek Urea nitrogen/Creatinine [Mass ratio] 14.8 mg/mg Normal [facility] Comment on above: Performed By: #### B MP #### [facility] [address] [address] [address] Robbin Meek DEVICE EVALUATION (SCANNED)o n 06-08-2022 [facility] No Panel Informationon 06-01 ANION GAP, MANUAL ENTER 11.3 O [facility] Blood Urea Nitrogen (BUN), MANUAL ENTER 18 [facility] BUN/CREA RATIO, MANUAL ENTER 15.5 [facility] CALCIUM (CA), MANUAL ENTER 8.9 [facility] Carbon Diox(CO2), MANUAL ENTER 27.2 [facility] Chloride (CL), MANUAL ENTER 101 mmol/L [facility] CREATININE, SERUM, MANUAL ENTER 1.16 mg/dL [facility] ESTIMATED GFR, , MANUAL ENTER >60 [facility] ESTIMATED GFR, NON AMER, MANUAL ENTER >60 [facility] GLUCOSE, MANUAL ENTER 98 [facility] MAGNESIUM (MG), MANUAL ENTER [facility] Phosphate (PO4), Manual Enter [facility] POTASSIUM (K+), MANUAL ENTER 4.5 [facility] SODIUM (NA), MANUAL ENTER 135 [facility] Center [facility] PROF CHEM 8 (BAS METB)on Anion gap [Moles/Vol] 11.3 mmol/L Normal [facility] Comment on above: Performed By: #### B MP #### [facility] [address] [address] [address] Robbin Meek Calcium [Mass/Vol] 8.9 mg/dL Normal 8.5-10.1 [facility] Comment on above: Performed By: #### B MP #### [facility] [address] [address] [address] Robbin Meek Chloride [Moles/Vol] 101 mmol/L Normal 98-107 [facility] Comment on above: Performed By: #### B MP #### [facility] [address] [address] [address] Robbin Meek CO2 [Moles/Vol] 27.2 mmol/L Normal 21.0-32.0 [facility] Comment on above: Performed By: #### B MP #### [facility] [address] [address] [address] Robbin Meek Creatinine [Mass/Vol] 1.16 mg/dL Normal 0.70-1.30 [facility] Comment on above: Performed By: #### B MP #### [facility] [address] [place] [address] Dr. Robbin Meek EGFR-AF MACEDONIAN >60 Normal >=60 [facility] Comment on above: Performed By: #### B MP #### [facility] [address] [address] [address] Robbin Meek EGFR-NON AF MACEDONIAN >60 Normal >=60 [facility] Comment on above: Performed By: #### B MP #### [facility] [address] [place] [address] Dr. Robbin Meek Glucose [Mass/Vol] 98 mg/dL Normal 74-106 [facility] Comment on above: Performed By: #### B MP #### [facility] [address] [place] [address] Dr. Robbin Meek Potassium [Moles/Vol] 4.5 mmol/L Normal 3.5-5.1 [facility] Comment on above: Performed By: #### B MP #### [facility] [address] [place] [address] Dr. Robbin Meek Sodium [Moles/Vol] 135 mmol/L Critically low 136-145 [facility] Comment on above: Performed By: #### B MP #### [facility] [address] [place] [address] Dr. Robbin Meek Urea nitrogen [Mass/Vol] 18.0 mg/dL Normal 7.0-18.0 [facility] Comment on above: Performed By: #### B MP #### [facility] [address] [place] [address] Dr. Robbin Meek Urea nitrogen/Creatinine [Mass ratio] 15.5 mg/mg Normal [facility] Comment on above: Performed By: #### B MP #### [facility] [address] [place] [address] Dr. Robbin Meek Coding Summary.on 11-23-2020 Coding Summary. 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 CODING DATE: 11/16/2020 FINAL [facility] STATUS: Home (Routine DC) PAYOR: Medicare APC DESCRIPTION 5481 Laser Eye Procedures ADMIT DX: REASON FOR VISIT DX: H26.492 Other secondary cataract, left eye FINAL DX: PRINCIPAL: H26.492 Other secondary cataract, left eye SECONDARY: PYMT PROC APC STAT DESCRIPTION DOCTOR NAME DATE 02418 5481 T Discission of secondary Matthias Dillon [...] Lary Huerta Date Saved: 11/16/2020 01:26 pm [facility] Consent for Procedure/Surger yon 11-15-2020 Consent for Procedure/Surgery [id number] #1.00CD:127 [facility] Consent for Treatmenton 10-26 Consent for Treatment [id number] #1.00CD:127 Normal [facility] Discharge Instructionson Discharge Instructions [id number] #1.00CD:127 Normal [facility] History and Physicalon 11-15 History and Physical [id number] 0 [id number] #1.00CD:127 Normal [facility] IntraOperative Documentson 1 01-16-2020 IntraOperative Documents [id number] #1.00CD:127 Normal [facility] IntraOperative Documents [id number] #1.00CD:127 [facility] Consent for Procedure/Surger yon 11-11-2020 Consent for Procedure/Surgery [id number]#1.00CD:127 [facility] Discharge Instructionson Discharge Instructions [id number] [id number]#1.00CD:127 Normal [facility] History and Physicalon 11-11 History and Physical [id number] 2 [id number]#1.00CD:127 Normal [facility] IntraOperative Documentson 01-12-2020 IntraOperative Documents [id number] 4#1.00CD:127 Normal [facility] IntraOperative Documents [id number]#1.00CD:127 Normal [facility] Consent for Treatmenton 10-25 Consent for Treatment [id number] #1.00CD:127 Normal [facility] COVID-19([facility])on 07-21-2020 COVID-19([facility]) NOT DETECTED Normal NOT DETECTED [facility] Comment on above: Performed By: #### C OVID-19([facility]) #### [facility] [address] [place], [place] [id number] COVID-19([facility])on 07-18-2020 Age at specimen collection = Normal [facility] Comment on above: Performed By: #### C OVID-19([facility]) #### [facility] [address] [place], [place] [address] PT/INRon 03-24-2020 INR Coag (PPP) [Relative time] 1.0 {INR} [facility] Interpretation and review of laboratory results Normal [facility] PT Coag (PPP) [Time] 13.1 s [facility] During the induction phase of oral anticoagulation, the INR may not reflect the anticoagulation status of the patient. Therapeutic ranges for INR's are: Most clinical situations: INR 2.0-3.0 Mechanical Prosthetic Valve: INR 2.5-3.5 Critical: INR >5.0 [facility] SCAN OTHER ORDERSon 03-24-20 Ordered by an unspecified provider. [facility] Otheron 02-18-2020 Ordered by an unspecified provider. [facility] XR HIP 2-3 VW W PELVIS LEFTo [...] Woodson Jr., MD 12/24/19 Final result Normal [facility] XR HIP 2-3 VW W PELVIS LEFTO rdered By: Ny Parham on 12-24-2019 Left hip prosthesis in anatomic alignment. [facility] Work Phone: EXAM: XR HIP 2-3 VW W PELVIS LEFT HISTORY: M25.552 54-year-old male, left hip pain and burning 3-4 days. COMPARISON: Lumbar spine dictated separately same date. TECHNIQUE: AP pelvis and AP and frog-leg views left hip. FINDINGS: Bilateral total hip prostheses. The left hip prosthesis shows normal alignment and hardware. [facility] Phone: Barry, MooBellapn Incoming Radiant Results From eEvent - 12/24/2019 10:06 AM EST EXAM: XR HIP 2-3 VW W PELVIS LEFT HISTORY: M25.552 54-year-old male, left hip pain and burning 3-4 days. COMPARISON: Lumbar spine dictated separately same date. TECHNIQUE: AP pelvis and AP and frog-leg views left hip. FINDINGS: Bilateral total hip prostheses. The left hip prosthesis shows normal alignment and hardware. IMPRESSION: Left hip prosthesis in anatomic alignment. [facility] Phone: XR LUMBAR SPINE (MIN 4 VIEWS [...] Woodson Jr., MD 12/24/19 Final result Normal [facility] XR LUMBAR SPINE (MIN 4 VIEWS )Ordered By: Ny Parham on 12-24-2019 Multilevel moderate degenerative change. [facility] Phone: EXAM: XR LUMBAR SPINE (MIN 4 VIEWS) HISTORY: M25.552, 54-year-old male left hip pain, burning. COMPARISON: Pelvis and left hip dictated separately same date. TECHNIQUE: 5 views lumbar spine. FINDINGS: Moderate diffuse disc degenerative change. Partial inclusion of bilateral hip prostheses. Anastomotic suture ring and surgical clips near the ascending colon. [facility] Phone: Barry, Mhpn Incoming Radiant Results From eEvent - 12/24/2019 10:06 AM EST EXAM: XR LUMBAR SPINE (MIN 4 VIEWS) HISTORY: M25.552, 54-year-old male left hip pain, burning. COMPARISON: Pelvis and left hip dictated separately same date. TECHNIQUE: 5 views lumbar spine. FINDINGS: Moderate diffuse disc degenerative change. Partial inclusion of bilateral hip prostheses. Anastomotic suture ring and surgical clips near the ascending colon. IMPRESSION: Multilevel moderate degenerative change. [facility] Phone: Basic Metabolic Panlon 12-09 Anion gap [Moles/Vol] 14 mmol/L Normal 9-18 [facility] Comment on above: Performed By: #### B YA, HFP, LD6 #### [facility] [address] [address] Calcium [Mass/Vol] 8.9 mg/dL Normal 8.5-10.2 [facility] Comment on above: Performed By: #### B YA, HFP, LD6 #### [facility] [address] [address] Chloride [Moles/Vol] 99 mmol/L Normal 97-105 [facility] Comment on above: Performed By: #### B YA, HFP, LD6 #### [facility] [address] [address] CO2 [Moles/Vol] 25 mmol/L Normal 22-30 [facility] Comment on above: Performed By: #### B MP, HFP, LD6 #### [facility] [address], [place] [address] Creatinine [Mass/Vol] 1.08 mg/dL Normal 0.73-1.22 [facility] Comment on above: Performed By: #### B MP, HFP, LD6 #### [facility] [address] [address] eGFR- Amer. >60 Normal [facility] Comment on above: Performed By: #### B MP, HFP, LD6 #### [facility] [address] [place] [address] GFR/1.73 sq M predicted among non-blacks MDRD (S/P/Bld) [Vol rate/Area] mL/min/{1.73_m2} Normal [facility] Comment on above: Result Comment: eGFR [...] By: #### B DARELL PANDYA LD6 #### [facility] [address] [id number] Glucose [Mass/Vol] 98 mg/dL Normal 74-99 [facility] Comment on above: Result Comment: The [place] Diabetes Association (ADA) provides guidance for cutoff [...] Standards of Medical Care in Diabetes 2016, [place] [employer]. Diabetes Care. 2016.39(Suppl 1). Performed By: #### B DARELL PANDYA, LD6 #### [facility] [address] [place], [place] [address] Potassium [Moles/Vol] 4.5 mmol/L Normal 3.7-5.1 [facility] Comment on above: Performed By: #### B DARELL PANDYA, LD6 #### [facility] [address] [place], [place] [address] Sodium [Moles/Vol] 138 mmol/L Normal 136-144 [facility] Comment on above: Performed By: #### B DARELL PANDYA, LD6 #### [facility] [address] [place], [place] [address] Urea nitrogen [Mass/Vol] 17 mg/dL Normal 9-24 [facility] Comment on above: Performed By: #### B YA, DARELL, LD6 #### [facility] [address] [place], [place] [address] CNOVSPon 12-09-2019 CNOVSP Visit (SP) Office (HEMACL) HELENTANIA Manny ([id number]) 1965 M Date Time Provider Department 12/09/19 [...] PNL - CBC + DIFF (FOR REMOTE [facility] USE) - HEPATIC FUNCTION PNL - LD [...] questions satisfactorily.. Derek Pereyra D.O. Medical Oncologist [place], [place] Cc. Referring Provider: SELF [200] Allergies As of Date: 12/09/2019 (No Known Allergies) Date Reviewed: 12/09/2019 Reviewed by: Amber Villatoro - Fully Assessed Reason for Visit: Lymphoma [564] Cmt: 1 year follow up Primary Visit Diagnosis:Diffuse large B-cell lymphoma, unspecified body region (HCC) [C83.30] Order(s):BASIC METABOLIC PNL [SQBMP] Order #: [id number] STANDING CBC + DIFF (FOR REMOTE [facility] USE) [SQRCBCDF] Order #: [id number] STANDING HEPATIC FUNCTION PNL [SQHFP] Order #: [id number] STANDING LD LACTATE DEHYDRO [SQLD6] Order #: [id number] STANDING Prescriptions as of 12/09/2019 Sig: AMIODARONE [...] by ARON PEREYRA DO on 12/12/19 Normal [facility] Hepatic Functn Panelon 12-09 Albumin [Mass/Vol] 4.1 g/dL Normal 3.9-4.9 [facility] Comment on above: Performed By: #### B MP, HFP, LD6 #### [facility] [address], [place] [address] ALP [Catalytic activity/Vol] 84 U/L Normal 38-113 [facility] Comment on above: Performed By: #### B MP, HFP, LD6 #### [facility] [address] [place], [place] [address] ALT [Catalytic activity/Vol] 8 U/L Low 10-54 [facility] Comment on above: Performed By: #### B MP, HFP, LD6 #### [facility] [address] [place] [address] AST [Catalytic activity/Vol] 24 U/L Normal 14-40 [facility] Comment on above: Performed By: #### B MP, HFP, LD6 #### [facility] [address] [place], [place] [address] Bilirubin [Mass/Vol] 0.2 mg/dL Normal 0.2-1.3 [facility] Comment on above: Performed By: #### B MP, HFP, LD6 #### [facility] [address] [place], [place] [address] Bilirubin,Conjugated <0.2 Normal <0.2 [facility] Comment on above: Performed By: #### B MP, HFP, LD6 #### [facility] [address] [place], [place] [address] Protein [Mass/Vol] 6.8 g/dL Normal 6.3-8.0 [facility] Comment on above: Performed By: #### B MP, HFP, LD6 #### [facility] [address] [place], [place] [address] LDon 12-09-2019 LD 254 U/L High 135-225 [facility] Comment on above: Result Comment: Resu lts may be falsely increased due to interference by hemolysis. Suggest reorder as clinically indicated. Performed By: #### B MP, HFP, LD6 #### [facility] [address] [place], [place] [address] PROGRESSon 12-09-2019 PROGRESS HNO ID: [id number] Author: Aron Pereyra Service: ? Author Type: [...] PNL - CBC + DIFF (FOR REMOTE [facility] USE) - HEPATIC FUNCTION PNL - LD [...] and my recommendations listed below. The patient Tanai Venegas verbalized understanding and agreed with these recommendations and plan. I answered all questions satisfactorily.. Derek Pereyra D.O. Medical Oncologist [facility]. Normal [facility] Remote CBCDIF (for [facility] use o nly)on 12-09-2019 Abs Baso <0.03 Normal 0.00-0.10 [facility] Abs [place] 0.65 k/uL Normal 0.00-0.86 [facility] Abs Neut 3.48 k/uL Normal 1.45-7.50 [facility] Basophils/100 WBC (Bld) 0.3 % Normal [facility] Eosinophils (Bld) [#/Vol] 0.12 10*3/uL Normal 0.00-0.45 [facility] Eosinophils/100 WBC (Bld) 2.0 % Normal [facility] Erythrocyte distribution width (RBC) [Ratio] 15.7 % High 11.5-15.0 [facility] Hematocrit (Bld) [Volume fraction] 38.4 % Low 39.0-51.0 [facility] Hemoglobin (Bld) [Mass/Vol] 12.4 g/dL Low 13.0-17.0 [facility] Lymphocytes (Bld) [#/Vol] 1.59 10*3/uL Normal 1.00-4.00 [facility] Lymphocytes/100 WBC (Bld) 27.1 % Normal [facility] MCH (RBC) [Entitic mass] 27.7 pG Normal 26.0-34.0 [facility] MCHC (RBC) [Mass/Vol] 32.3 g/dL Normal 30.5-36.0 [facility] MCV (RBC) [Entitic vol] 85.7 fL Normal 80.0-100.0 [facility] Monocytes/100 WBC (Bld) 11.1 % Normal [facility] Neutrophils/100 WBC (Bld) 59.5 % Normal [facility] Platelet mean volume (Bld) [Entitic vol] 9.3 fL Normal 9.0-12.7 [facility] Platelets (Bld) [#/Vol] 196 10*3/uL Normal 150-400 [facility] RBC (Bld) [#/Vol] 4.48 10*6/uL Normal 4.20-6.00 [facility] WBC (Bld) [#/Vol] 5.86 10*3/uL Normal 3.70-11.00 [facility] Cardiovascular Lab Reporton 09-04-2019 Cardiovascular Lab Report [facility] Patient Name: Tania Venegas [facility] MR #: [id number] Physician: Abhijit Lala of [facility] Medicine Service Date: 09/03/2019 Division of Birthdate: 1965 Cardiology Room #: [facility] Cardiovascular Services [facility] [address] [address] Cardiovascular Laboratory Report INDICATION: The patient is a 54-year-old man with a prior history of coronary artery disease by cardiac catheterization in 2016. 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 He has history of atrial fibrillation [...] signed informed consent. He was brought to laboratory mechanic helper in a fasting state. The right groin area was prepped and draped in usual fashion. Using micropuncture technique, the right common femoral artery was accessed. The inner cannula was advanced. Limited right femoral angiography was performed followed by upsizing to a 6-Solomon Islander x 11 cm sheath. Access was obtained using the same technique in the right common femoral vein and a 6-Solomon Islander x 11 cm sheath was placed. A 6-Solomon Islander Medina catheter was used for right heart catheterization with measurement of pressures and calculation of cardiac output using the estimated Tarun method. Medina catheter was removed. Bilateral selective coronary angiography was then performed using 6-Solomon Islander JL4 and JR4 diagnostic catheters. Catheters were [...] Zelaya M.D. Date Trans: 09/04/2019 02:33 Nikkie/richy [id number] cc: Oliver Springer D.O. [address] [place] [address] Normal [facility] CTA HEART-CORONARY/ ARTERY B YPASS GRAFT WITH 3DPPon 08-13-2019 CTA HEART-CORONARY/ ARTERY BYPASS GRAFT WITH 3DPP [facility] Department of Radiology [address] [place] [address] Patient Name: TANIA VENEGAS : 1965 Sex: M Age: Race: White Pt. Location: 30 Patient Status: O Ordered Date: 08/04/2019 10:20:00 AM Completed Date: 08/13/2019 02:29 PM Requesting Provider: VERNON REYNOLDS Attending Provider: VERNON REYNOLDS Report Copy To: OLIVER SPRINGER Signs & Symptoms: I50.30 Unspecified diastolic (congestive) heart failure I10 History: [place] [facility] in [facility] npc cta/ medicare [...] procedure Electronically signed by:Rose Cabrera. Transcribed by: [email or web address], User Resident: Electronically Signed by: ROSE CABRERA @ 08/13/2019 09:06 PM Normal [facility] [place] [facility] Vital Signs Date Time Vital Sign Value Performing Clinician Facility 09-26-2023 10:35-0400 Diastolic blood pressure 65 mm[Hg] Ajit Hurtado MD Work Phone: [facility] 09-26-2023 10:35-0400 Heart rate 89 /min Ajit Hurtado MD Work Phone: [facility] 09-26-2023 10:35-0400 Systolic blood pressure 101 mm[Hg] Ajit Hurtado MD Work Phone: [facility] 09-26-2023 10:34-0400 Body height 185.4 cm Ajit Hurtado MD Work Phone: [facility] 09-26-2023 10:34-0400 Body mass index (BMI) [Ratio] 34.55 kg/m2 Ajit Hurtado MD Work Phone: [facility] 09-26-2023 10:34-0400 Body weight 118.8 kg Ajit Hurtado MD Work Phone: [facility] 09-26-2023 10:34-0400 Respiratory rate 16 /min Ajit Hurtado MD Work Phone: [facility] 09-26-2023 10:34-0400 SaO2% (BldA) [Mass fraction] 97 % Ajit Hurtado MD Work Phone: 2(831)[phone] [address] 01-31-2023 08:48-0500 Diastolic blood pressure 68 mm[Hg] Ajit Hurtado MD Work Phone: 3(568)504-737193 [address] 01-31-2023 08:48-0500 Heart rate 72 /min Ajit Hurtado MD Work Phone: 7(368)841-538244 [place] [address] 01-31-2023 08:48-0500 Systolic blood pressure 109 mm[Hg] Ajit Hurtado MD Work Phone: 1(953)493-494344 [place] [address] 01-31-2023 08:47-0500 Body height 185.4 cm Ajit Hurtado MD Work Phone: 0(218)[phone] [address] 01-31-2023 08:47-0500 Body mass index (BMI) [Ratio] 34.17 kg/m2 Ajit Hurtado MD Work Phone: 2(642)676-012144 [place] [address] 01-31-2023 08:47-0500 Body weight 117.48 kg Ajit Hurtado MD Work Phone: 4(573)986-484544 [place] [address] 01-31-2023 08:47-0500 Respiratory rate 18 /min Ajit Hurtado MD Work Phone: 1(883)295-529044 [place] [address] 01-31-2023 08:47-0500 SaO2% (BldA) [Mass fraction] 97 % Ajit Hurtado MD Work Phone: [facility] 01-10-2023 09:33-0500 Body height 185.4 cm Ajit Hurtado MD Work Phone: [facility] 01-10-2023 09:33-0500 Body mass index (BMI) [Ratio] 33.64 kg/m2 Ajit Hurtado MD Work Phone: 0(087)[phone] [address] 01-10-2023 09:33-0500 Body weight 115.67 kg Ajit Hurtado MD Work Phone: 4(400)942-594293 [address] 08-30-2022 09:25-0400 Diastolic blood pressure 87 mm[Hg] Ajit Hurtado MD Work Phone: 1(031)042-056444 [place] [address] 08-30-2022 09:25-0400 Heart rate 66 /min Ajit Hurtado MD Work Phone: 0(158)791-928444 [place] [address] 08-30-2022 09:25-0400 Systolic blood pressure 135 mm[Hg] Ajit Hurtado MD Work Phone: 1(218)768-606244 [place] [address] 08-30-2022 09:24-0400 Body height 182.9 cm Ajit Hurtado MD Work Phone: 5(042)232-051693 [address] 08-30-2022 09:24-0400 Body mass index (BMI) [Ratio] 34.98 kg/m2 Ajit Hurtado MD Work Phone: 5(859)946-257444 [place] [address] 08-30-2022 09:24-0400 Body weight 116.98 kg Ajit Hurtado MD Work Phone: 6(049)848-888244 [place] [address] 08-30-2022 09:24-0400 Respiratory rate 18 /min Ajit Hurtado MD Work Phone: [facility] 08-30-2022 09:24-0400 SaO2% (BldA) [Mass fraction] 98 % Ajit Hurtado MD Work Phone: 8(265)774-929493 [address] 03-24-2020 13:50-0400 BP Diastolic 88 mm[Hg] Evie Candelaria [facility] 03-24-2020 13:50-0400 BP Systolic 145 mm[Hg] [facility] 03-24-2020 13:50-0400 Pulse (Heart Rate) 64 /min [facility] 03-24-2020 13:50-0400 Pulse Oximetry 100 % [facility] 03-24-2020 13:50-0400 Respiratory Rate 19 /min [facility] 03-24-2020 12:10-0400 Body Temperature 97.7 [degF] [facility] 03-24-2020 06:55-0400 BMI (Body Mass Index) 34.55 kg/m2 [facility] 03-24-2020 06:55-0400 Body weight 118.[address] [facility] 03-24-2020 06:55-0400 Height 185.[address] [facility] Encounters Encounter Date Encounter Type Care Provider Facility Start: 02-26-2024 End: 02-26-2024 ambulatory [facility] Start: 01-09-2024 ambulatory OLIVER SPRINGER JR. Fa cility:[facility] Start: 01-09-2024 End: 01-09-2024 Clinical Support Encounter Alexander Cox MD Work Phone: [facility] Comment on above: PVC's (premature nuris tricular contractions) (Primary Dx) Start: 01-09-2024 ambulatory OLIVER SPRINGER JR. Fa cility:[facility] Start: 12-27-2023 Telephone encounter Dax gomes [facility] Comment on above: Outside Medical Bhanu rds Request Start: 11-06-2023 ambulatory Maria Elena Melendrez RN [facility] Start: 09-26-2023 ambulatory OLIVER SPRINGER JR. Fa cility:[facility] Start: 09-26-2023 End: 09-26-2023 Office outpatient visit 25 minutes Ajit Hurtado MD Work Phone: [facility] Comment on above: Chronic systolic hea rt failure (Primary Dx); PVC (premature ventricular contraction); Paroxysmal atrial fibrillation; Coronary artery disease involving kaltag coronary artery of kaltag heart without angina pectoris Start: 09-04-2023 End: 09-04-2023 ambulatory KELLY [facility] Start: 07-25-2023 ambulatory OLIVER Gomes VALTANGELA JR. Fa cility:[facility] Start: 07-02-2023 ambulatory OLIVER SPRINGER JR. Fa cility:[facility] Start: 06-28-2023 ambulatory OLIVER Gomes VALTANGELA JR. Fa cility:[facility] Start: 06-05-2023 End: 06-05-2023 ambulatory MARIOLA [facility] Start: 05-31-2023 ambulatory OLIVER Gomes ADRIELTANGELA JR. Fa cility:[facility] Start: 05-23-2023 ambulatory OLIVER SPRINGER JR. Fa cility:[facility] Start: 05-23-2023 ambulatory OLIVER SPRINGER JR. Fa cility:[facility] Start: 05-03-2023 ambulatory OLIVER Gomes ADRIELTANGELA JR. Fa cility:[facility] Start: 04-04-2023 ambulatory OLIVER SPRINGER JR. Fa cility:[facility] Start: 03-25-2023 End: 04-24-2023 ambulatory SHAIKH Dereck GARCÍA Facility:[facility] Start: 03-07-2023 ambulatory OLIVER SPRINGER JR. Fa cility:[facility] Start: 02-25-2023 End: 03-22-2023 ambulatory NOWAKMARTINEZ ROSARIOWAD Facility:[facility] Start: 02-07-2023 ambulatory OLIVER Gomes GIAN JR. Fa cility:[facility] Start: 01-31-2023 ambulatory OLIVER SPRINGER JR. Fa cility:[facility] Start: 01-31-2023 End: 01-31-2023 Office outpatient visit 25 minutes Ajit Hurtado MD Work Phone: [facility] Comment on above: Chronic systolic hea rt failure (Primary Dx); PVC (premature ventricular contraction); Paroxysmal atrial fibrillation; Coronary artery disease involving kaltag coronary artery of kaltag heart without angina pectoris Start: 01-23-2023 End: 02-22-2023 ambulatory SHAIKH Dereck GARCÍA Facility:[facility] Start: 01-10-2023 End: 01-10-2023 Subsequent hospital visit by physician Ajit Hurtado MD Work Phone: [facility] Start: 01-10-2023 End: 01-10-2023 Subsequent hospital visit by physician Ajit Hurtado MD Work Phone: [facility] Comment on above: Arrived Start: 12-26-2022 End: 01-23-2023 ambulatory NOWAK H FAWWAD Facility:[facility] Start: 11-26-2022 End: 12-26-2022 ambulatory NOWAK H [...] 25 minutes Ajit Hurtado MD Work Phone: [facility] Comment on above: Chronic systolic hea rt failure (Primary Dx); Paroxysmal atrial fibrillation; PVC (premature ventricular contraction); Coronary artery disease involving kaltag coronary artery of kaltag heart without angina pectoris Start: 08-26-2022 End: 09-24-2022 ambulatory NOWAK H FAWWAD Facility:[facility] Start: 07-26-2022 End: 08-25-2022 ambulatory NOWAK H FAWWAD Facility:[facility] Start: 06-25-2022 End: 07-25-2022 ambulatory NOWAK H FAWWAD Facility:[facility] Start: 06-01-2022 End: 06-02-2022 ambulatory Delmy Frey RN [facility] Start: 05-25-2022 End: 06-22-2022 ambulatory NOWAK H FAWWAD Facility:[facility] Start: 08-24-2021 End: 08-24-2021 Subsequent hospital visit by physician [facility] Work Phone: [facility] Comment on above: Canceled (Cancel [place] son Not Listed - Please provide detailed information) Start: 03-24-2020 End: 03-24-2020 Patient encounter procedure EVIEJAYME MARIN [facility] Start: 03-24-2020 End: 03-24-2020 Subsequent hospital visit by physician Evie Candelaria Work Phone: [facility] Comment on above: Ankle arthritis (Milvia mai Dx) Start: 03-23-2020 End: 03-23-2020 Patient encounter procedure [facility] Start: 12-24-2019 End: 12-27-2019 Patient encounter procedure [place] DYKES [facility] Start: 12-24-2019 End: 12-26-2019 Subsequent hospital visit by physician Dolores 1 [facility] Comment on above: Left hip pain Start: 12-24-2019 End: 12-27-2019 Patient encounter procedure [place] DY[facility] Start: 12-24-2019 End: 12-26-2019 Subsequent hospital visit by physician Oliver Springer DO Work Phone: [facility] Start: 09-03-2019 End: 09-04-2019 Patient encounter procedure PROVIDER UNKNOWN Facility:[facility] Procedures Date Procedure Procedure Detail Performing Clinician Start: 02-26-2024 Follow-up visit Follow-up MITALI ALEGRIA Start: 11-05-2023 BNP, MANUAL ENTER Sandi Hurtado [...] hip unilateral with pelvis 2-3 views [place] POCJUS Start: 12-24-2019 Radex spine lumbosac ral minimum 4 views [place] POCOS Start: 12-24-2019 End: 12-24-2019 Radex hip unilateral with pelvis 2-3 views [place] Dykes Pocos DO Work Phone: Plan of Treatment Date Care Activity Detail Author Start: 01-14-2025 End: 01-14-2025 Patient encounter procedure 01/14/2025 10:30 AM EST Office Visit [facility] [address] [place] [phone] Alexander Cox MD [address] [place] [phone] [facility] Start: 11-05-2024 Potassium [Moles/volume] in Serum or Plasma POTASSIUM [facility] Start: 07-09-2024 End: 07-09-2024 Patient encounter procedure 07/09/2024 1:30 PM EDT Office Visit [facility] [place] [address] [facility] [address] [place] [address] [facility] Start: 04-09-2024 End: 04-09-2024 Patient encounter procedure 04/09/2024 11:30 AM EDT Office Visit [facility] [address] [place] [phone] Ajit Hurtado MD [address] [place] [phone] [facility] Start: 01-09-2024 End: 01-09-2024 Patient encounter procedure [facility] Start: 11-28-2023 End: 11-28-2023 Patient encounter procedure [facility] Start: 09-26-2023 End: 09-26-2024 CHEM 6 (LYTES, BUN CREA) CHEM 6 (LYTES, BUN CREA) Lab Routine Chronic systolic heart failure Expected: 09/26/2023, Expires: 09/26/2024 [facility] Comment on above: Expected: 09/26/2023, Expires: Start: 09-26-2023 End: 09-26-2024 Natriuretic peptide B [Mass/volume] in Blood B-TYPE NATRIURETIC PEPTIDE (BRAIN) Lab Routine Chronic systolic heart failure Expected: 09/26/2023, Expires: 09/26/2024 [facility] Comment on above: Expected: 09/26/2023, Expires: Start: 08-01-2023 End: 08-01-2023 Patient encounter procedure 08/01/2023 Office Visit Cardiovascular Medicine Ajit Hurtado MD [address] [place] [phone] [facility] Start: 07-26-2023 COVID-19 VACCINE ( season) COVID-19 VACCINE () [facility] Start: 07-26-2023 Influenza vaccination INFLUENZA VACCINE (#1) [facility] Start: 05-08-2023 End: 05-08-2023 Patient encounter procedure 05/08/2023 Office Visit Pharmacy [facility] Start: 01-17-2023 End: 01-17-2023 Patient encounter procedure 01/17/2023 Office Visit Cardiovascular Medicine Ajit Hurtado MD [address] [place] [phone] [facility] Start: 01-10-2023 End: 01-10-2023 Patient encounter procedure 01/10/2023 Office Visit Electrophysiology Alexander Cox MD [address] [place] [address] [facility] Start: 01-10-2023 End: 01-10-2023 Patient encounter procedure 01/10/2023 Appointment Echocardiography Ajit Hurtado MD [address] [place] [phone] [facility] Start: 11-07-2022 End: 11-07-2022 Patient encounter procedure [facility] Start: 08-30-2022 End: 08-30-2023 Cardiopulmonary exercise test FUNCTIONAL VO2 TESTING Stress Echocardiography Routine Chronic systolic heart failure Expected: 08/30/2022, Expires: 08/30/2023 [facility] Comment on above: Expected: 08/30/2022, Expires: 3 Start: 08-30-2022 End: 08-30-2023 CHEM 6 (LYTES, BUN CREA) CHEM 6 (LYTES, BUN CREA) Lab Routine Chronic systolic heart failure Expected: 08/30/2022, Expires: 08/30/2023 [facility] Comment on above: Expected: 08/30/2022, Expires: 3 Start: 08-30-2022 End: 08-30-2022 Patient encounter procedure 08/30/2022 Office Visit Cardiovascular Medicine Ajit Hurtado MD [address] [place] [phone] [facility] Start: 07-26-2022 Influenza vaccination INFLUENZA VACCINE (#1) [facility] Start: 12-24-2019 Annual Wellness Visit (AWV) Annual Wellness Visit (AWV) [facility] Phone: Start: 07-26-2019 Influenza vaccination Flu vaccine (#1) [facility] Phone: Start: 07-26-2019 Influenza vaccination given Sequential Influenza Vaccine (#1) [facility] Start: 2015 Administration of herpes zoster vaccine Zoster Vaccines (1 of 2) [facility] Start: 2015 Colon cancer screen colonoscopy Colon cancer screen colonoscopy [facility] Phone: Start: 2015 Prostate specific antigen measurement PROSTATE CANCER SCREENING DISCUSSION [facility] Start: 2015 Shingles Vaccine (1 of 2) Shingles Vaccine (1 of 2) [facility] Phone: Start: 2015 Zoster vaccine [id number] live for subcutaneous use ZOSTER (SHINGLES) VACCINE (1 of 2) [facility] Start: 2010 Colonoscopy COLORECTAL CANCER SCREENING DISCUSSION [facility] Start: 2010 Screening for malignant neoplasm of colon COLORECTAL CANCER SCREENING DISCUSSION [facility] Start: 2005 Fasting lipid profile LIPID SCREENING [facility] Start: 2005 Lipid panel LIPID SCREENING [facility] Start: 2005 Lipid screen Lipid screen [facility] Phone: Start: 1984 Hepatitis B vaccination HEP B VACCINE (1 of 3 - 19+ 3-dose series) [facility] Start: 1984 Third diphtheria, tetanus and acellular pertussis (DTaP) vaccination TDAP (ADULT) [facility] Start: 1983 Tetanus vaccination TETANUS [facility] Start: 1980 HIV screen HIV screen [facility] Phone: Start: 1980 HIV screening HIV SCREENING DISCUSSION [facility] Start: 1976 DTaP/Tdap/Td vaccine (1 - Tdap) DTaP/Tdap/Td vaccine (1 - Tdap) [facility] Phone: Start: 1968 History and physical examination, annual for health maintenance Wellness Visit [facility] Start: 03-02-1966 COVID-19 VACCINE (#1) COVID-19 VACCINE (#1) [facility] Start: 1965 Hepatitis B vaccination HEP B VACCINE (1 of 3 - 3-dose series) [facility] Start: 1965 Hepatitis C antibody, confirmatory test [facility] Start: 1965 Hepatitis C screen [facility] [employer] [facility] Start: 1965 Hepatitis C screening HEPATITIS C VIRUS SCREENING [facility] Start: 1965 Prostate specific antigen measurement PSA Level [facility] Start: 1965 Screening for malignant neoplasm of colon Colorectal Cancer Screening: Colonoscopy [facility] Start: 1965 Tetanus vaccination [facility] Measurement of respiratory function PFT STANDARD PFT Routine Encounter for long-term (current) use of high-risk medication PVC's (premature ventricular contractions) Encounter for long-term (current) use of medications 11/07/2022 2:40 PM EST [facility] Payers Date Payer Category Payer Medicare [id number] 2019 Medicare xxxxxxx [id number] 2019 Unknown [id number] 1965 Unknown [id number] 2.16.84 0.1.000178.3.579.2.174 1965 Unknown [id number] 2.16.84 0.1.213222.3.579.2.174 1965 Unknown [id number] 2.16.84 0.1.828366.3.579.2.174 1965 Unknown [id number] 2.16.8 40.1.509440.3.579.2.902 1965 Unknown [id number] 2.16.8 40.1.079912.3.579.2.902 1965 Unknown [id number] 2.16.8 40.1.614207.3.579.2.647 1965 Unknown [id number] 2.16.84 0.1.451739.3.579.2.593 1965 Unknown [id number] 2.16.84 0.1.815785.3.579.2.593 1965 Unknown [id number] 2.16.84 0.1.186051.3.579.2.593 1965 Unknown [id number] 2.16.84 0.1.025178.3.579.2.593 1965 Unknown [id number] 2.16.84 0.1.029936.3.579.2.593 1965 Unknown [id number] 2.16.84 0.1.879223.3.579.2.593 1965 Unknown [id number] 2.16.84 0.1.906714.3.579.2.593 1965 Unknown [id number] 2.16.84 0.1.790436.3.579.2.593 1965 Unknown [id number] 2.16.84 0.1.259018.3.579.2.593 1965 Unknown [id number] 2.16.84 0.1.785405.3.579.2.593 1965 Unknown [id number] 2.16.84 0.1.862810.3.579.2.593 1965 Unknown [id number] 2.16.84 0.1.927936.3.579.2.593 1965 Unknown [id number] 2.16.84 0.1.322439.3.579.2.593 1965 Unknown [id number] 2.16. 840.1.563482.3.579.2.594 1965 Unknown [id number] 2.16. 840.1.233077.3.579.2.594 1965 Unknown [id number] 2.. 840.1.453880.3.579.2.594 1965 Unknown [id number] 2.16 840.1.413370.3.579.2.594 1965 Unknown [id number] 2. 840.1.116969.3.579.2.594 1965 Unknown [id number] 2. 840.1.792987.3.579.2.594 1965 Unknown [id number] 2. 840.1.789980.3.579.2.594 1965 Unknown [id number] 2. 840.1.998509.3.579.2.594 1965 Unknown [id number] 2. 840.1.894292.3.579.2.594 1965 Unknown [id number] 2. 840.1.823288.3.579.2.594 1965 Unknown [id number] 2. 840.1.547227.3.579.2.594 1965 Unknown [id number] 2. 840.1.665719.3.579.2.594 1965 Unknown [id number] 2. 840.1.155921.3.579.2.594 1965 Unknown [id number] 2. 840.1.702991.3.579.2.594 1965 Unknown [id number] 2. 840.1.405187.3.579.2.594 1959 Medicare [id number] Medicare [id number] Unknown [id number] Social History Date Type Detail Facility Start: 03-23-2020 End: 05-23-2023 Tobacco smoking status NHIS Never smoker [facility] Phone: Start: 03-23-2020 End: 01-31-2023 Alcohol intake Current drinker of alcohol (finding) [facility] Start: 1965 Sex Assigned At Not on file [facility] Phone: Start: 05-09-2017 End: 05-23-2023 Tobacco use and exposure Smokeless tobacco non-user [facility] Start: 07-21-2020 History SDOH Alcohol Frequency 2 [facility] Start: 05-02-2022 History SDOH Alcohol Comment occasional [facility] Start: 06-29-2021 End: 09-26-2023 Alcohol intake [facility] Start: 10-28-2022 End: 01-31-2023 Exposure to SARS-CoV-2 (event) Not sure [facility] Start: 09-26-2023 Alcohol intake Ex-drinker (finding) [facility] Start: 07-21-2020 End: 09-26-2023 Alcohol Use Disorder Identification Test - Consumption [AUDIT-C] [facility] How often to you hav e a drink containing alcohol? Monthly or less [facility] Average Number of Drinks Not on file [facility] Start: 09-26-2023 Alcohol Comment occasionally few beers-not weekly [facility] Gender identity Identifies as micha fleming gender (finding) [facility] Medical Equipment Procedure Code Equipment Code Equipment Origin al Text Equipment Identifier Dates Filler 10cc Bone Void Cerament - [id number] Start: 03-24-2020 Screw 3.5 X 30mm Non Lock Ti Alloy Motoband Cp - [id number] Start: 03-24-2020 Bioactive Bone G raft Putty 7.5cc [id number] Start: 03-24-2020 Screw 7 X 55 X 1 6mm Umesh Headed Short Thrd Unite - [id number] Start: 03-24-2020 Plate 18mm Z Bet a Motoband Max - [id number] Start: 03-24-2020 Dynaforce Plate Sterile Instrument Kit [id number] Start: 03-24-2020 Kit 18 X 18 X 18 mm Superelastic Motoclip Himax - [id number] Start: 03-24-2020 Screw 4.5 X 50mm Umesh Headed Unite - [id number] Start: 03-24-2020 4 Screws And 2 Wedges [id number] Start: 03-24-2020 Comment on above: Description: Brandon frey calcaneus 5 Screws And 1 Plate [id number] Sta rt: 03-24-2020 Comment on above: Description: Brandon frey Clinical Notes 06-01-2022 to 02-26-2024 Telephone Encounter - Yulissa Dagoberto - 12/27/2023 1:34 PM ESTTelephone Encounter - Yulissa Arenas - 12/27/2023 1:34 PM ESTTelephone Encounter - Dax Estrada - 12/27/2023 10:54 AM EST Note Date & Type Note Facility 02-26-2024 Note Cardiovascular Medic [facility] SUBJECTIVE Chief Complaint Patient presents with Follow-up Patient is here today with increased sob and dizziness Was evaluated in the ER yesterday Tania Venegas is a 58 y.o. male here for follow-up. 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 He also notes increased SOB. He had a CXR that was negative for any acute processes. His dizziness started to get worse about 1.5 weeks ago. Dyspnea can occur at rest. Denies CP, edema, syncope. Thus, in summary, is a 58 y.o. [...] 30 - improvement from the one at [facility] in April 2022. - GDMT: continue [...] 3.) Non-obstructive CAD: Stable. Managed by local dye tub tender. On rosuvastatin 10mg daily - due to hx of muscle cramps with lipitor 4.) Paroxysmal afib s/p ablation. On toprol XL and coumadin. In SR today on exam. 5.) BRANNON: using CPAP regularly and notices improvement in daytime fatigue when using it all night. 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) in place Past Medical History: Diagnosis Date Atrial fibrillation (CMS/HCC) Bradycardia Cancer (CMS/HCC) CHF (congestive heart failure) (CMS/HCC) Coronary artery disease Diastolic dysfunction Hypertension PVC (premature ventricular contraction) RLS (restless legs syndrome) Sleep apnea SVT (supraventricular tachycardia) (CMS/HCC) Systolic dysfunction Thrombus of left atrial appendage Family History Problem Relation Name Age of Onset COPD Father Other (pacemaker) Father Social History Tobacco Use Smoking status: Never Smokeless tobacco: Never Substance Use Topics Alcohol use: Yes Comment: moderate No Known Allergies Review of Systems Constitutional: Positive for malaise/fatigue. Negative for chills, decreased appetite, fever and weight gain. Cardiovascular: Positive for dyspnea on exertion and irregular heartbeat. Negative for chest pain, leg swelling, near-syncope, orthopnea, palpitations, paroxysmal nocturnal dyspnea and syncope. Respiratory: Positive for shortness of breath. Hematologic/Lymphatic: Negative for bleeding problem. Does not bruise/bleed easily. Neurological: Positive for dizziness. OBJECTIVE Visit Vitals BP 105/72 Pulse 60 Resp 11 Ht 1.854 m (6' 1 ) Wt 121 kg (266 lb) SpO2 97% BMI 35.09 kg/m??? Smoking Status Never BSA 2.5 m??? Medications: Current Outpatient Medications: amiodarone (Pacerone) 200 mg tablet, Take 0.5 tablets by mouth in the morning. 100 mg daily, Disp: , Rfl: aspirin 81 mg chewable tablet, Chew 81 mg in the morning., Disp: , Rfl: eplerenone (Inspra) 25 mg tablet, Take 25 mg by mouth in the morning., Disp: , Rfl: furosemide (Lasix) 40 mg tablet, Take 1 tablet (40 mg) by mouth if needed each day (take 1 tablet daily for 2-3 days for weight gain, leg swelling, shortness of breath- then stop- may repeat as needed)., Disp: 20 tablet, Rfl: 11 metoprolol s (more content not included)... [facility] 12-27-2023 Telephone encounter Note Received recent pacemaker check. Routing to Lana Brown, and RUPINDER. [facility] 12-27-2023 Miscellaneous Notes Received recent pacemaker check. Routing to Lana Brown, and RUPINDER. Received a call from Dr. Abhijit Zelaya office letting me know that pt has not been seen at the office since 2020 and that he is monitored by [facility] on his home monitor. Called and spoke with Carmela and she will work on getting the recent check faxed to us shortly. ----- Message from Dax Estrada sent at 12/27/2023 8:37 AM EST ----- Called and LM with device clinic asking them to fax the recent pacemaker check. Left call back and fax numbers. Jesus ----- Message ----- From: Annemarie Anne Sent: 12/26/2023 3:54 PM EST To: Vin Cox Apt 01/09/24 Patient is inactive with our clinic Following Provider: Dr. Abhijit Zelyaa [phone] documented in this encounter [facility] 12-27-2023 Telephone encounter Note Received a call from Dr. Abhijit Zelaya office letting me know that pt has not been seen at the office since 2020 and that he is monitored by [facility] on his home monitor. Called and spoke with Carmela and she will work on getting the recent check faxed to us shortly. [facility] 12-27-2023 Telephone encounter Note ----- Message from Dax Estrada sent at 12/27/2023 8:37 AM EST ----- Called and LM with device clinic asking them to fax the recent pacemaker check. Left call back and fax numbers. Jesus ----- Message ----- From: Annemarie Anne Sent: 12/26/2023 3:54 PM EST To: [facility] Ep [place] Pool DR. Cox Apt 01/09/24 Patient is inactive with our clinic Following Provider: Dr. Abhijit Zelaya [phone] [facility] Telephone encounter Note Images from the original note were not included. MD Maria Elena Daniel RN; P [facility] Heart Failure Nurse Pool Caller: Unspecified (Today, 10:59 AM) Thanks, labs look good with med changes last visit. LVM with the above message and stated he could call back if he had any questions. [facility]-06-2023 Miscellaneous Notes Images from the original note were not included. MD Maria Elena Daniel, RN; P [facility] Heart Failure Nurse Pool Caller: Unspecified (Today, 10:59 AM) Thanks, labs look good with med changes last visit. LVM with the above message and stated he could call back if he had any questions. Received fax from [facility] with outside lab orders. Manually entered. Forwarded in outlook to [facility]. Routed to Dr. Hurtado for review. documented in this encounter [facility] 11-06-2023 Telephone encounter Note Received fax from [facility] with outside lab orders. Manually entered. Forwarded in outlook to [facility]. Routed to Dr. Hurtado for review. [facility] 09-26-2023 History of Present illness Narrative Tania Venegas is a 58 y.o. 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 PCP: Dr. Oliver Springer; Cardiology: Dr. 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 -Echo 11/2021: LVEF 25-30%, Grade 2 diastolic dysfunction, YNES, mild MR/TR, RVSP 40 mmHg -Echo 06/2019: LVEF 30-35% -LHC around 2016 ([facility]): no CAD -C 09/03/2019 ([facility]): [facility]-ob[facility]ive [facility]): RA 6, PA 38/18 (29) PCWP 18, CI: 3.1 2. Afib -2016 Afib ablation c/b perforation -Cryo + CTI 06/2017 -Repeat CTI ablation 12/2020 3. HTN 4. PVC - Follows with EP -Unsuccessful ablation due to epicardial location -anti-arrhythmics: mexilitine tried with amiodarone without benefit. Switched to ranolazine and amiodarone. -MCT 01/17 pending 5. Non-Hodgkins lymphoma 2006, s/p anthracycline 6. [...] evening at 6 PM. 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 - GDMT: continue [...] 3.) Non-obstructive CAD: Stable. Managed by local dye tub tender. On rosuvastatin 10mg daily - due to [...] Medicine Advanced Heart Failure and Transplant Program [facility] [email or web address] [phone] fax [phone] Patient Education Patient education regarding the following topic(s) was provided on 09/26/2023: Recommendations from Dr Hurtado at your office appt today at [facility]: Take lasix (furosemide) 40mg daily Labs next week Continue other current medications Return appt Dr Hurtado in 6 months Your after visit summary (AVS) is viewable in [facility] My Chart. Call RN if you have cardiac questions/concerns M-F 8 to 4:30 ; office # [phone], option 6, then option 2. Guidelines for home management: 1. Continue to monitor weight first thing each morning. 2. Report to the CHF CLINIC ([phone]) any significant weight change. Remember that weight [...] to have labs/tests run outside of the [facility] and you do not hear from us 1-2 days after they are performed, you must call us to ensure we received the results. Office fax # [phone]. No news does not necessarily mean that your tests are normal, it could mean we did not get the results. For questions/updates: please provide your name with spelling, date of and question or update All calls are prioritized and responses researched, if possible, prior to calls being returned. Call Scheduling for any appointment/procedure verification or changes [phone], option 7 or [facility] Schedulers at [phone], option 1. Those in attendance for the education included: patient and spouse. Barriers in providing the education included: none. The following methods were used in providing the education: explanation and handout. [facility] handouts given included: After visit summary and lab orders. The response of those in attendance was: states/identifies education topic. The following Clinical Intervention(s) occurred during today s visit: Orthostatic or Coarctation vital signs completed and Extensive teaching provided to patient and or support team regarding medication, labs documented in this encounter [facility] 09-26-2023 Instructions Jovita Cerda RN - 09/26/2023 11:30 AM EDT Recommendations from Dr Hurtado at your office appt today at [facility]: Take lasix (furosemide) 40mg daily Labs next week Continue other current medications Return appt Dr Hurtado in 6 months Your after visit summary (AVS) is viewable in [facility] My Chart. Call RN if you have cardiac questions/concerns M-F 8 to 4:30 ; office # [phone], option 6, then option 2. Guidelines for home management: 1. Continue to monitor weight first thing each morning. 2. Report to the CHF CLINIC ([phone]) any significant weight change. Remember that weight [...] to have labs/tests run outside of the [facility] and you do not hear from us 1-2 days after they are performed, you must call us to ensure we received the results. Office fax # [phone]. No news does not necessarily mean that your tests are normal, it could mean we did not get the results. For questions/updates: please provide your name with spelling, date of and question or update All calls are prioritized and responses researched, if possible, prior to calls being returned. Call Scheduling for any appointment/procedure verification or changes [phone], option 7 or [facility] Heart Schedulers at [phone], option 1. documented in this encounter [facility] 09-04-2023 Note EKG today Bi-V paced Continue amiodarone 100 mg daily and warfarin anticoagulation F/U with Dr Harrell- [facility] EP [facility] 09-04-2023 Note [facility] II-III c- curre ntly appears fluid [...] please maintain K+>4 and Mg > 2 [facility] 09-04-2023 Note Patient here for 9 [...] All other systems reviewed and are negative. [facility] 09-04-2023 Note [facility] CARDIOLOGY PROGR ESS [...] Judgment normal. Labs: (more content not included)... [facility] 01-31-2023 History of Present illness Narrative Tania Venegas is a 57 y.o. 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 PCP: Dr. Oliver Springer; Cardiology: Dr. 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 Afib -2017 Afib ablation c/b perforation -Cryo + CTI 06/2017 -Repeat CTI ablation 12/2020 3. HTN 4. PVC - Follows with EP -Unsuccessful ablation due to epicardial location -anti-arrhythmics: mexilitine tried with amiodarone without benefit. Switched to ranolazine and amiodarone. 5. Non-Hodgkins lymphoma 2007, s/p anthracycline 6. 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 - GDMT: continue [...] 3.) Non-obstructive CAD: Stable. Managed by local dye tub tender. On crestor 10mg daily - due to [...] to see him back in 6 months. Jone Davenport MD Fellow, Advance Heart Failure [...] I independently evaluated the patient with the inpatient care manager rn, and we developed the plan for management together. I have reviewed the above note and edited the essential parts of the note, which reflects my own impression and plan. I agree with the chief complaint, history, exam, and plan as detailed by the inpatient care manager rn. Based on the history and exam, I [...] Medicine Advanced Heart Failure and Transplant Program [facility] [email or web address] [phone] fax [phone] documented in this encounter [facility] 01-31-2023 Instructions Amina Guadalupe RN - 01/31/2023 8:30 AM EST Recommendations from Dr Hurtado today: No changes to medications today Please follow up with Dr. Hurtado in 6 months After visit summary (AVS) is viewable in [facility] My Chart. Send My Chart message for non-urgent inquiry or Call RN if you have cardiac questions/concerns M-F 8 to 4:30 ; office # [phone], option 6, then option 2. Guidelines for home management: 1. Continue to monitor weight first thing each morning. 2. Report to the CHF CLINIC ([phone]) any significant weight change. Remember that weight [...] to have labs/tests run outside of the [facility] and you do not hear from us 1-2 days after they are performed, you must call us to ensure we received the results. Office fax # [phone]. No news does not necessarily mean that your tests are normal, it could mean we did not get the results. For questions/updates: please provide your name with spelling, date of and question or update All calls are prioritized and responses researched, if possible, prior to calls being returned. Call Scheduling for any appointment/procedure verification or changes [phone], option 7 or [facility] Heart Schedulers at [phone], option 1. documented in this encounter [facility] 08-30-2022 History of Present illness Narrative Tania Venegas is a 56 y.o. 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 PCP: Dr. Oliver Springer; Cardiology: Dr. Abhijit Zelaya (local); [place]oke () HPI: Tania Venegas is a 56 y.o. 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 Afib -2017 Afib ablation c/b perforation -Cryo + CTI 06/2017 -Repeat CTI ablation 12/2020 3. HTN 4. PVC - Follows with EP -Unsuccessful ablation due to epicardial location -anti-arrhythmics: mexilitine tried with amiodarone without benefit. Switched to ranolazine and amiodarone. 5. Non-Hodgkins lymphoma 2007, s/p anthracycline 6. 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 Managed by local dye tub tender. On crestor 10mg daily - due to [...] I independently evaluated the patient with the inpatient care manager rn, and we developed the plan for management together. I have reviewed the above note and edited the essential parts of the note, which reflects my own impression and plan. I agree with the chief complaint, history, exam, and plan as detailed by the inpatient care manager rn. Based on the history and exam, I [...] Medicine Advanced Heart Failure and Transplant Program [facility] [email or web address] [phone] fax [phone] documented in this encounter [facility] 08-30-2022 Instructions Delmy Frey RN - [...] M-F 8 to 4:30 ; office # [phone], option 6, then option 2. Guidelines for home management: 1. Continue to monitor weight first thing each morning. 2. Report to the [facility] ([phone]) any significant weight change. Remember that weight [...] to have labs/tests run outside of the [facility] and you do not hear from us 1-2 days after they are performed, you must call us to ensure we received the results. Office fax # [phone]. No news does not necessarily mean that your tests are normal, it could mean we did not get the results. For questions/updates: please provide your name with spelling, date of and question or update All calls are prioritized and responses researched, if possible, prior to calls being returned. Call Scheduling for any appointment/procedure verification or changes [phone], option 7 or [facility] Heart Schedulers at [phone], option 1. documented in this encounter [facility] 06-05-2022 Telephone encounter Note From: Ajit Hurtado MD Sent: 06/04/2022 5:04 PM EDT To: [facility] Heart Failure Nurse Pool Ok, labs are fine. Thanks. MyChart message sent to patient. [facility] 06-05-2022 Miscellaneous Notes From: Ajit Hurtado MD Sent: 06/04/2022 5:04 PM EDT To: [facility] Heart Failure Nurse Pool Ok, labs are fine. Thanks. MyChart message sent to patient. Outside lab results received, manually entered. documented in this encounter [facility] 06-01-2022 Telephone encounter Note Outside lab results received, manually entered. [facility] 06-01-2022 Miscellaneous Notes Outside lab results received, manually entered. documented in this encounter [facility] Evaluation note Diagnosis Left hip pain Pain in joint, pelvic region and thigh documented in this encounter [facility] Phone: evaluation note* Diagnosis Chronic systolic heart failure- Primary Paroxysmal atrial fibrillation Atrial fibrillation PVC (premature ventricular contraction) Other premature beats Coronary artery disease involving [place] coronary artery of [place] heart without angina pectoris [facility] Diagnosis Encounter for long-term (current) use of high-risk medication Encounter for long-term (current) use of other medications PVC's (premature ventricular contractions) Other premature beats Encounter for long-term (current) use of medications Encounter for long-term (current) use of other medications [facility] Chronic systolic heart failure [facility] Diagnosis Chronic systolic heart failure- Primary PVC (premature ventricular contraction) Other premature beats Paroxysmal atrial fibrillation Atrial fibrillation Coronary artery disease involving [place] coronary artery of [place] heart without angina pectoris [facility] Diagnosis Chronic systolic heart failure- Primary PVC (premature ventricular contraction) Other premature beats Paroxysmal atrial fibrillation Atrial fibrillation Coronary artery disease involving [place] coronary artery of [place] heart without angina pectoris [facility] PVC's (premature ventricular contractions)- Primary Other premature beats documented in this encounter [facility] Summary Purpose Family History No Family History Records FoundNo Family History Records FoundNo Family History Records FoundNo Family History Records FoundNo Family History Records FoundNo Family History Records FoundNo Family History Records FoundNo Family History Records FoundNo Family History Records Found Advance Directives No Advanced Directives Records FoundDocuments on File Type Date Recorded Patient [employer] anation Advance Directives and Livin g Will 03/24/2020 5:51 AM Documents on File Type Date Recorded Patient [employer] Expl anation Advance Directives and Living Will Power of Ncqa Specialist Latest Code Status on File Code Status [...] Follow the preprinted instruction provided by your [facility] Physician. - Take all medications as prescribed. [...] Referral Specialty Diagnoses / Procedures Referred By Natalie whitaker Referred To Contact Diagnoses Chronic systolic heart failure Procedures FUNCTIONAL VO2 TESTING Ajit Hurtado MD [address] [place] [phone] Referral ID Status Reason Start Date Expiration Date V isits Requested Visits Authorized [id number] New Request 08/30/2022 09/24/2023 1 1 Specialty Diagnoses / Procedures Referred By Natalie whitaker Referred To Contact Diagnoses Encounter for long-term (current) use of high-risk medication PVC's (premature ventricular contractions) Encounter for long-term (current) use of medications Procedures PFT STANDARD Alexander Cox MD [address] [place] [phone] Referral ID Status Reason Start Date Expiration Date V isits Requested Visits Authorized [id number] New Request 05/12/2022 06/06/2023 1 1 Specialty Diagnoses / Procedures Referred By Natalie whitaker Referred To Contact Ajit Hurtado MD [address] [place] [phone] Referral ID Status Reason Start Date Expiration Date Visits Re quested Visits Authorized [id number] Closed 1 1 Additional Source Comments (unrecognized sect ion and content) No Status Records FoundNo Status Records FoundNo Status Records FoundNo Status Records FoundNo Status Records FoundNo Status Records FoundNo Status Records FoundNo Status Records FoundNo Status Records Found INFORMATION SOURCE (unrecogn ized section and content) DATE CREATED AUTHOR 12/12/2019 [facility] DATE CREATED AUTHOR AUTHOR'S ORGANIZ ATION 12/26/2019 [facility] DATE CREATED AUTHOR AUTHOR'S ORGANIZ ATION 04/10/2020 [facility] DATE CREATED AUTHOR AUTHOR'S ORGANIZ ATION 04/13/2020 [facility] DATE CREATED AUTHOR AUTHOR'S ORGANIZ ATION 08/25/2020 [facility] DATE CREATED AUTHOR AUTHOR'S ORGANIZ ATION 11/24/2020 [facility] DATE CREATED AUTHOR AUTHOR'S ORGANIZ ATION 05/03/2023 [facility] DATE CREATED AUTHOR AUTHOR'S ORGANIZ ATION 01/11/2024 [facility] DATE CREATED AUTHOR AUTHOR'S ORGANIZ ATION 03/03/2024 [facility] Reason for Visit (unrecogniz ed section and content) Status Reason Specialty Diagnoses / Procedures Re ferred By Contact Referred To Contact Diagnoses M96.0, M19.072, S93.422A Procedures LEFT ANKLE HARDWARE REMOVAL, CALCANEAL OSTEOTOMY, TALONAVICULAR REVISION FUSION, 1ST TARSOMETATARSAL FUSION, ACHILLES TENDON LENGTHENING, DELTOID REPAIR Reason Onset Date Comments Results 06/01/2022 Reason Comments Follow-up Specialty Diagnoses / Procedures Referred By Natalie whitaker Referred To Contact Diagnoses Encounter for long-term (current) use of high-risk medication PVC's (premature ventricular contractions) Encounter for long-term (current) use of medications Procedures PFT STANDARD Alexander Cox MD [address] [place] [address] Referral ID Status Reason Start Date Expiration Date V isits Requested Visits Authorized [id number] New Request 05/12/2022 06/06/2023 1 1 Specialty Diagnoses / Procedures Referred By Natalie whitaker Referred To Contact Diagnoses Chronic systolic heart failure Procedures FUNCTIONAL VO2 TESTING Ajit Hurtado MD [address] [place] [address] Referral ID Status Reason Start Date Expiration Date V isits Requested Visits Authorized [id number] New Request 08/30/2022 09/24/2023 1 1 Reason Comments Follow-up Reason Comments Follow-up Denies chest pain; i nforms local dye tub tender started lasix which has helped Reason Onset [...] Name: Tania Venegas Admit Date: MR #: [id number] : 1965 The H&P has been reviewed and the patient has been examined. I concur with the findings of the H&P. There are no significant changes. It is appropriate to proceed with the planned procedure. Irwin Molina DPM 03/24/2020 6:57 AM INTERVAL HISTORY AND PHYSICAL Patient Name: Tania Venegas Admit Date: MR #: [id number] : 1965 The H&P has been reviewed [...] letter(see EMR) Reviewed cardiac history and testing -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 [...] if needed 9. Coronary artery disease involving [place] coronary artery of [place] heart without angina pectoris Patient with history [...] Evie Candelaria DO prior to 03/24 at [facility]; LEFT ANKLE HARDWARE REMOVAL, CALCANEAL OSTEOTOMY, TALONAVICULAR [...] Brief Post Operative Note Patient Name: Tania Vneegas : 1965 (54 y.o.) Date of Service: 03/24/2020 CSN: [id number] Procedure(s): LEFT ANKLE HARDWARE REMOVAL, CALCANEAL OSTEOTOMY, TALONAVICULAR REVISION FUSION, 1ST TARSOMETATARSAL FUSION, OSTEOTOMY TALUS Pre-Operative Diagnoses: * M96.0, M19.072, S93.422A Post-Operative Diagnoses: Surgeon(s) and Role: * Evie Candelaria DO - Primary * John Saravia DO - Resident - Assisting * Irwin Molina DPM - Fellow Anesthesiologist: John Paul iRcardo MD RUNNER MAN: Mira Tao CRNA Tractor Trailer Technician: Mari Mitchell RN Scrub Person Relief: ST Celia Scrub Person: ST Lakesha Nurse Float: Araceli Shafer RN Operative findings: consistent with pre op diagnosis Intra and immediate post-operative complications: none Type of anesthesia used: Regional, General Estimated blood loss: 50 mL Estimated urine output: Refer to surgical log Specimen(s): * No specimens in log * Implant(s): Implant Name Type Inv. Item Serial No. Phlebotomist Lot No. LRB No. Used Action FILLER 10CC BONE VOID CERAMENT - [id number] FILLER 10CC BONE VOID CERAMENT BONE SUPPO [id number] Left 1 Implanted 4 screws and 2 wedges Left 6 Explanted 5 screws and 1 plate Left 1 Explanted BioActive Bone Graft Putty 7.5cc MEDLINE IN [id number] Left 1 Implanted SCREW 7 X 55 X 16MM UMESH HEADED SHORT THRD UNITE - [id number] SCREW 7 X 55 X 16MM UMESH HEADED SHORT THRD UNITE MEDLINE IN Left 2 Implanted PLATE 18MM Z BETA MOTOBAND MAX - [id number] PLATE 18MM Z BETA MOTOBAND MAX [id number] Left 1 Implanted DynaForce Plate Sterile Instrument Kit [id number] Left 1 Implanted KIT 18 X 18 X 18MM SUPERELASTIC MOTOCLIP HIMAX - [id number] KIT 18 X 18 X 18MM SUPERELASTIC MOTOCLIP HIMAX [id number] [id number] Left 1 Implanted SCREW 4.5 X 50MM UMESH HEADED UNITE - [id number] SCREW 4.5 X 50MM UMESH HEADED UNITE MEDLINE IN Left 2 Implanted SCREW 3.5 X 30MM NON LOCK TI ALLOY MOTOBAND CP - [id number] SCREW 3.5 X 30MM NON LOCK TI ALLOY MOTOBAND CP [id number] Left 2 Implanted Drain(s): * No LDAs found * Wound(s): Wound 03/24/20 Surgical Wound Foot Left (Active) Irwin Molina DPM 03/24/2020 12:06 PM documented in this encounter Care Teams (unrecognized sec tion and content) 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 Artist Relationship Specialty Start Date End Date Alexander Cox MD [address] [place] [address] PCP - Referring 2 Clinical Cardiac Electrophysiology 07/19/17 Oliver Springer Jr., DO [address] [place] [address] PCP - General Internal Medicine 03/17/20 [place] [address] [place] [address] Interventional Cardiology 11/10/19 Evie Candelaria, DO [address] [place] [address] Orthopaedic Surgery 03/18/20 Scenic Artist Relationship Specialty Start Date End Date Alexander Cox MD [address] [place] [address] PCP - Referring 2 Clinical Cardiac Electrophysiology 07/19/17 Oliver Springer Jr., DO [address] [place] [address] PCP - General Internal Medicine 03/17/20 [place] [address] [place] [phone] Interventional Cardiology 11/10/19 Evie Candelaria, DO [address] [place] [address] Orthopaedic Surgery 03/18/20 Scenic Artist Relationship Specialty Start Date End Date Alexander Cox MD [address] [place] [address] PCP - Referring 2 Clinical Cardiac Electrophysiology 07/19/17 Oliver Springer Jr., DO [facility] [place] [address] PCP - General Internal Medicine 03/17/20 [place] [address] [place] [phone] Interventional Cardiology 11/10/19 Evie Candelaria, DO [address] [place] [address] Orthopaedic Surgery 03/18/20 Scenic Artist Relationship Specialty Start Date End Date Alexander Cox MD [address] [place] [address] PCP - Referring 2 Clinical Cardiac Electrophysiology 07/19/17 Oliver Springer Jr., DO [facility] [place] [address] PCP - General Internal Medicine 03/17/20 [place] [address] [place] [phone] Interventional Cardiology 11/10/19 Evie Candelaria, DO [address] [place] [address] Orthopaedic Surgery 03/18/20 Scenic Artist Relationship Specialty Start Date End Date Alexander Cox MD [address] [place] [address] PCP - Referring 2 Clinical Cardiac Electrophysiology 07/19/17 Oliver Springer Jr., DO [address] [place] [address] PCP - General Internal Medicine 03/17/20 [place] [address] [place] [address] Interventional Cardiology 11/10/19 Evie Candelaria, DO [address] [place] [address] Orthopaedic Surgery 03/18/20 Scenic Artist Relationship Specialty Start Date End Date Alexander Cox MD [address] [place] [address] PCP - Referring 2 Clinical Cardiac Electrophysiology 07/19/17 Oliver Springer Jr., DO [address] [place] [address] PCP - General Internal Medicine 03/17/20 [place] [address] [place] [phone] Interventional Cardiology 11/10/19 Evie Candelaria, DO [address] [place] [address] Orthopaedic Surgery 03/18/20 Scenic Artist Relationship Specialty Start Date End Date Alexander Cox MD [address] [place] [phone] PCP - Referring 2 Clinical Cardiac Electrophysiology 07/19/17 Oliver Springer Jr., DO [facility] [place], [place] [phone] PCP - General Internal Medicine 03/17/20 [place] [address] [place] [phone] Interventional Cardiology 11/10/19 Evie Candelaria, DO [address] [place] [address] Orthopaedic Surgery 03/18/20 Scenic Artist Relationship Specialty Start Date End Date Alexander Cox MD [address] [place] [phone] PCP - Referring 2 Clinical Cardiac Electrophysiology 07/19/17 Oliver Springer Jr., DO [address] [place] [phone] PCP - General Internal Medicine 03/17/20 [place] [address] [place] [address] Interventional Cardiology 11/10/19 Evie Candelaria, DO [address] [place] [address] Orthopaedic Surgery 03/18/20 Scenic Artist Relationship Specialty Start Date End Date Alexander Cox MD [address] [place] [phone] PCP - Referring 2 Clinical Cardiac Electrophysiology 07/19/17 Oliver Springer Jr., DO [address] [place] [phone] PCP - General Internal Medicine 03/17/20 [place] [address] [place] [phone] Interventional Cardiology 11/10/19 Evie Candelaria DO [address] [place] [address] Orthopaedic Surgery 03/18/20 Scenic Artist Relationship Specialty Start Date End Date Alexander Cox MD [address] [place] [address] PCP - Referring 2 Clinical Cardiac Electrophysiology 07/19/17 Oliver Springer Jr., DO [address] [place] [address] PCP - General Internal Medicine 03/17/20 [place] [address] [place] [phone] Interventional Cardiology 11/10/19 Evie Candelaria DO [address] [place] [address] Orthopaedic Surgery 03/18/20 Scenic Artist Relationship Specialty Start Date End Date Alexander Cox MD [address] [place] [address] PCP - Referring 2 Clinical Cardiac Electrophysiology 07/19/17 Oliver Springer Jr., DO [address] [place] [address] PCP - General Internal Medicine 03/17/20 [place] [address] [place] [address] Interventional Cardiology 11/10/19 Evie Candelaria DO [address] [place] [address] Orthopaedic Surgery 03/18/20 FOR RECORDS PERTAINING TO [...] BE BASED ON THE PRIMARY CLINICAL RECORDS. [employer] provides no warranty or guarantee of the accuracy or completeness of information in this document.
== END 2024-03-11 08:01 | disposition home or self-care (01) ==
LOC: CARD 08:00
PROVIDERS: PCP Internal Medicine; Visit Provider Internal Medicine Interventional Cardiology
DX: I50.41 Acute combined systolic (congestive) and diastolic (congestive) heart failure (principal); I37.1 Nonrheumatic pulmonary valve insufficiency
CPT/HCPCS: 93306; 93356

== ENCOUNTER 2024-03-12 08:54 | Outpatient (OUT) | payer MEDICARE, SELFPAY ==
--- NOTE | 2024-03-12 09:00 | RT_ITS ---
[facility] Test Date: 2024-03-12 Pat Name: TANIA CERVANTES Department: Room: - Gender: Male Nursery Teacher: Leonila Merino RRT : 1965 Requested By: [id number] Order Number: [id number] Reading MD: Tyrone Garcia Interpretive Statements Pulmonary function testing was completed according to ATS criteria. Findings were considered accurate and reproducible. Both pre- and post-bronchodilator values utilized for spirometry. Lung volumes were not ordered. Spirometry (based on pre-bronchodilator values): -FEV1/FVC: Normal @ 74% -FEV1: Normal @ 96% -FVC: Normal @ 98% -There is no significant bronchodilator response. Diffusion capacity: -DLCO: Mild reduction @ 72% when corrected for Hb 13.6g/dL. Flow-volume loop: -Mild scooping in expiratory limb. Comparison from 08/14/2021: -Essentially unchanged spirometry with FEV1 94% and FVC 93%, and DLCO 74%. Comparing DLCO from 01/05/2019 and 02/18/2017, DLCO was 79% and 71% respectively Impressions: -Technically normal spirometry, though there may be a trend towards mild obstruction without a bronchodilator response. Mild diffusion impairment. Overall, no major significant change from or 02/18/2017. Clinical correlation required. Electronically Signed On 03-16-2024 8:03:36 EDT by Tyrone Garcia
--- OUTSIDE RECORDS SUMMARY | 2024-03-12 09:14 | XMS_ITS | CCD ---
Author Organization [facility] Care Team Providers Care Linen Manager Name Role Phone [place] PARHAM Referring Unavailable [...] Primary Care Provider Evie Candelaria DO Unavailable [phone] Alexander Cox MD Unavailable Abhijit Zelaya MD Unavailable [phone] Gian Moran DO, Charles L Primary Care Provider Evie Candelaria DO Unavailable [phone] SHAIKH Dereck GARCÍA Attending Unavailable SHAIKH Dereck [...] Alexander Weinberg Unavailable Abhijit Zelaya MD Unavailable Gian Moran [...] Gomes Referring Unavailabl e VALONE , OLIVER Gomes Primary Care Unavailabl ALEXANDER Mijares Attending Unavailable KELLY ELLISON Attending Unavailable MITALI ALEGRIA Attending Unavailable MARIOLA YU Referring Unavailable Allergies Allergy Classification Reported Allergen(s) Allergy Type Date of Onset Reaction(s) Facility (12 sources) *Seasonal Propensity to adverse reactions to substance 05-09-2017 [facility] Medications Current Medications Medication Drug Class(es) [...] Coronary atherosclerosis; Translations: [Atherosclerotic heart disease of [place] coronary artery without angina pectoris] Onset: 09-04-2023 Chronic Other aftercare (2 sources) Patient encounter status; Translations: [Other assistant terminal manager (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) drug therapy] Episodic Other aftercare (5 sources) Encounter for therapeutic drug level monitoring; Translations: [ENC THERAPEUTC DRUG LEVL MONITORING] Onset: 03-23-2023 Episodic Other aftercare (1 source) 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; Translations: [STORE MANAGEMENT TRAINEE CURRNT USE ANTICOAGULANTS] Onset: 04-24-2023 Episodic Other [...] te Episodic/Chronic Other aftercare (2 sources) Other halfway (current) drug therapy; Translations: [Other halfway (current) drug therapy] Onset: 05-23-2023 Episodic Other non-traumatic joint disorders (2 sources) Hip pain Episodic Results Test Name Value Interpretation Reference Range Facility Office Visiton 02-26-2024 Follow-up visit [id number] Tania Venegas 1965 M Date Provider Department Center 02/26/2024 Faiza-MITALI ALEGRIA CARD [facility] Family History Problem Relation Age of Onset COPD Father Other Father Family Status - Relation Status Age at Father Level of Service:81326 SC OFFICE/OUTPATIENT ESTABLISHED MOD MDM 30 MIN Reason for Visit and Comments: Follow-up [664237] - Patient is here today with increased sob and dizziness Was evaluated in the ER yesterday Normal [facility] ALP ALT Manuel 01-09-2024 ALP [Catalytic activity/Vol] 66 U/L Normal 32-126 [facility] Comment on above: Performed By: #### E NZ3 #### [facility] (DEFAULT) [address] [place] [address] ALT [Catalytic activity/Vol] 10 U/L Normal 10-52 [facility] Comment on above: Performed By: #### E NZ3 #### [facility] (DEFAULT) [address] [address] AST [Catalytic activity/Vol] 21 U/L Normal 10-39 [facility] Comment on above: Performed By: #### E NZ3 #### [facility] (DEFAULT) [address] [place] [address] T4 FREEon 01-09-2024 Free T4 [Mass/Vol] 1.43 ng/dL Normal 0.89-1.76 [facility] Comment on above: Performed By: #### T SH, FT4 #### [facility] (DEFAULT) [address] [place] [address] TSHon 01-09-2024 TSH 1.456 uIU/mL Normal 0.550-4.780 [facility] Comment on above: Performed By: #### T SH, FT4 #### [facility] (DEFAULT) [address] [address] BNP, MANUAL ENTERon 12-13-20 23 B-Type Natriuretic Peptide (BNP), MANUAL ENTER 1159 [facility] Comment on above: NT-PRO BNP [facility] CHEM 7 PANEL, MANUAL ENTERon 11-06-2023 Blood Urea Nitrogen (BUN), MANUAL ENTER 17.0 [facility] BUN/CREA RATIO, MANUAL ENTER [facility] CALCIUM (CA), MANUAL ENTER [facility] Carbon Diox(CO2), MANUAL ENTER 31.1 [facility] Chloride (CL), MANUAL ENTER 104 mmol/L [facility] CREATININE, SERUM, MANUAL ENTER 1.10 mg/dL [facility] GLUCOSE, MANUAL ENTER [facility] MAGNESIUM (MG), MANUAL ENTER [facility] Phosphate (PO4), Manual Enter [facility] POTASSIUM (K+), MANUAL ENTER 3.9 [facility] SODIUM (NA), [facility] ESTIMATED GFR, NON A DAMIAN, MANUAL ENTERon 11-06-2023 ESTIMATED GFR, NON AMER, MANUAL ENTER [facility] Office Visiton 09-04-2023 Follow-up visit [id number] Tania Venegas 1965 M Date Provider Department Center 09/04/2023 120-TERRA, KELLY CARD [facility] Family History Problem Relation Age of Onset COPD Father Other Father Family Status - Relation Status Age at Father Level of Service:99404 SC OFFICE/OUTPATIENT ESTABLISHED MOD MDM 30-39 MIN Normal [facility] ALP ALT Manuel 05-23-2023 ALP [Catalytic activity/Vol] 65 U/L Normal 32-126 [facility] Comment on above: Performed By: #### TANVIR STALEY KKO #### [facility] (DEFAULT) [address] [address] ALT [Catalytic activity/Vol] 7 U/L Low 10-52 [facility] Comment on above: Performed By: #### TANVIR STALEY KKO #### [facility] (DEFAULT) [address] [place] [address] AST [Catalytic activity/Vol] 25 U/L Normal 10-39 [facility] Comment on above: Performed By: #### Manny MERRILL MGO, KKO #### [facility] (DEFAULT) [address] [place] [address] MAGNESIUMon 05-23-2023 Magnesium [Mass/Vol] 2.0 mg/dL Normal 1.6-2.6 [facility] Comment on above: Performed By: #### Manny MERCER3, MGO, KKO #### [facility] (DEFAULT) [address] [place] [address] POTASSIUMon 05-23-2023 Potassium [Moles/Vol] 4.6 mmol/L Normal 3.5-5.0 [facility] Comment on above: Performed By: #### TANVIR STALEY, ANGELO #### [facility] (DEFAULT) [address] [place] [address] TSH W/FT4 REFLEXon 3 TSH 1.254 uIU/mL Normal 0.550-4.780 [facility] Comment on above: Performed By: #### T SHQR #### [facility] (DEFAULT) [address] [place] [address] FUNCTIONAL VO2 TESTINGOrdere d By: Arpan Ya on 01-10-2023 % APHRMAX 77 % [facility] Work Phone: APHRMAX 163 bpm [facility] Work Phone: Baseline DBP 69 mmHg [facility] Work Phone: Baseline DBP 66 mmHg [facility] Work Phone: Baseline HR 76 bpm [facility] Work Phone: Baseline HR 75 bpm [facility] Work Phone: Body surface area Derived from formula 2.39 m2 [facility] Work Phone: Estimated workload 8.0 METS [facility] Work Phone: Exercise duration (min) 6 min O [facility] Work Phone: Exercise duration (sec) 42 sec O [facility] Work Phone: lowest spo2 97 [facility] Work Phone: [facility] VO2 METS 8 [facility] Work Phone: Peak DBP 66 mmHg [facility] Work Phone: Peak HR 125 bpm [facility] Work Phone: Peak percent predicted 77 [facility] Work Phone: Peak SBP 130 mmHg [facility] Work Phone: peak SpO2 97 [facility] Work Phone: PEAKVO2 20 [facility] Work Phone: percent of peak vo2 87 [facility] Work Phone: Rate Pressure Product [phone] [facility] Work Phone: RER 1.24 [facility] Work Phone: RPE 19 [facility] Work Phone: RR MAX 28 [facility] Work Phone: ventilatory efficiency/vco2 30 [facility] Work Phone: vo2 at anaerobic threshold 18.3 [facility] Work Phone: FUNCTIONAL VO2 TESTINGon There [...] Ya on 01-10-2023 Baseline SBP 116 mmHg [facility] Work Phone: [facility] Work Phone: No Panel Informationon 01-10 Radiology Study observation (narrative) [facility] Vital signsOrdered By: Arpan Ya on 01-10-2023 Oxygen saturation in Blood 97 % [facility] Work Phone: PROF CHEM 8 (BAS METB)on Anion gap [Moles/Vol] 10.4 mmol/L Normal [facility] Comment on above: Performed By: #### B MP #### [facility] [address] [place] [address] Dr. Robbin Meek Calcium [Mass/Vol] 8.7 mg/dL Normal 8.5-10.1 [facility] Comment on above: Performed By: #### B MP #### [facility] [address] [address] [address] Robbin Meek Chloride [Moles/Vol] 101 mmol/L Normal 98-107 [facility] Comment on above: Performed By: #### B MP #### [facility] [address] [address] [address] Robbin Meek CO2 [Moles/Vol] 29.9 mmol/L Normal 21.0-32.0 [facility] Comment on above: Performed By: #### B MP #### [facility] [address] [address] [address] Robbin Meek Creatinine [Mass/Vol] 1.15 mg/dL Normal 0.70-1.30 [facility] Comment on above: Performed By: #### B MP #### [facility] [address] [address] [address] Robbin Meek EGFR-AF FRENCH >60 Normal >=60 [facility] Comment on above: Performed By: #### B MP #### [facility] [address] [address] [address] Robbin Meek EGFR-NON AF FRENCH >60 Normal >=60 [facility] Comment on above: Performed By: #### B MP #### [facility] [address] [address] [address] Robbin Meek Glucose [Mass/Vol] 101 mg/dL Normal 74-106 [facility] Comment on above: Performed By: #### B MP #### [facility] [address] [address] [address] Robbin Meek Potassium [Moles/Vol] 4.3 mmol/L Normal 3.5-5.1 [facility] Comment on above: Performed By: #### B MP #### [facility] [address] [address] [address] Robbin Meek Sodium [Moles/Vol] 137 mmol/L Normal 136-145 [facility] Comment on above: Performed By: #### B MP #### [facility] [address] [address] [address] Robbin Meek Urea nitrogen [Mass/Vol] 17.0 mg/dL Normal 7.0-18.0 [facility] Comment on above: Performed By: #### B MP #### [facility] [address] [address] [address] Robbin Meek Urea nitrogen/Creatinine [Mass ratio] 14.8 mg/mg Normal [facility] Comment on above: Performed By: #### B MP #### [facility] [address] [address] [address] Robbin Meek DEVICE EVALUATION (SCANNED)o n 06-08-2022 [facility] No Panel Informationon 06-01 ANION GAP, MANUAL ENTER 11.3 O [facility] Blood Urea Nitrogen (BUN), MANUAL ENTER 18 [facility] BUN/CREA RATIO, MANUAL ENTER 15.5 [facility] CALCIUM (CA), MANUAL ENTER 8.9 [facility] Carbon Diox(CO2), MANUAL ENTER 27.2 [facility] Chloride (CL), MANUAL ENTER 101 mmol/L [facility] CREATININE, SERUM, MANUAL ENTER 1.16 mg/dL [facility] ESTIMATED GFR, , MANUAL ENTER >60 [facility] ESTIMATED GFR, NON AMER, MANUAL ENTER >60 [facility] GLUCOSE, MANUAL ENTER 98 [facility] MAGNESIUM (MG), MANUAL ENTER [facility] Phosphate (PO4), Manual Enter [facility] POTASSIUM (K+), MANUAL ENTER 4.5 [facility] SODIUM (NA), MANUAL ENTER 135 [facility] PROF CHEM 8 (BAS METB)on Anion gap [Moles/Vol] 11.3 mmol/L Normal [facility] Comment on above: Performed By: #### B MP #### [facility] [address] [address] [address] Robbin Meek Calcium [Mass/Vol] 8.9 mg/dL Normal 8.5-10.1 [facility] Comment on above: Performed By: #### B MP #### [facility] [address] [address] [address] Robbin Meek Chloride [Moles/Vol] 101 mmol/L Normal 98-107 [facility] Comment on above: Performed By: #### B MP #### [facility] [address] [address] [address] Robbin Meek CO2 [Moles/Vol] 27.2 mmol/L Normal 21.0-32.0 [facility] Comment on above: Performed By: #### B MP #### [facility] [address] [address] [address] Robbin Meek Creatinine [Mass/Vol] 1.16 mg/dL Normal 0.70-1.30 [facility] Comment on above: Performed By: #### B MP #### [facility] [address] [place] [address] Dr. Robbin Meek EGFR-AF FRENCH >60 Normal >=60 [facility] Comment on above: Performed By: #### B MP #### [facility] [address] [address] [address] Robbin Meek EGFR-NON AF FRENCH >60 Normal >=60 [facility] Comment on above: Performed By: #### B MP #### [facility] [address] [place] [address] Dr. Robbin Meek Glucose [Mass/Vol] 98 mg/dL Normal 74-106 [facility] Comment on above: Performed By: #### B MP #### [facility] [address] [place] [address] Dr. Robbin Meek Potassium [Moles/Vol] 4.5 mmol/L Normal 3.5-5.1 [facility] Comment on above: Performed By: #### B MP #### [facility] [address] [place] [address] Dr. Robbin Meek Sodium [Moles/Vol] 135 mmol/L Critically low 136-145 [facility] Comment on above: Performed By: #### B MP #### [facility] [address] [place] [address] Dr. Robbin Meek Urea nitrogen [Mass/Vol] 18.0 mg/dL Normal 7.0-18.0 [facility] Comment on above: Performed By: #### B MP #### [facility] [address] [place] [address] Dr. Robbin Meek Urea nitrogen/Creatinine [Mass ratio] 15.5 mg/mg Normal [facility] Comment on above: Performed By: #### B MP #### [facility] [address] [place] [address] Dr. Robbin Meek Coding Summary.on 11-23-2020 Coding Summary. CODING DATE: 11/23/2020 FINAL [facility] STATUS: Home (Routine DC) PAYOR: Medicare APC DESCRIPTION 5481 Laser Eye Procedures ADMIT DX: REASON FOR VISIT DX: H26.491 Other secondary cataract, right eye FINAL DX: PRINCIPAL: H26.491 Other secondary cataract, right eye SECONDARY: PYMT PROC APC STAT DESCRIPTION DOCTOR NAME DATE 34053 5481 T Discission of secondary Matthias Dillon [...] Lary Huerta Date Saved: 11/23/2020 10:36 am [facility] Coding Summary.on 11-16-2020 Coding Summary. CODING DATE: 11/16/2020 FINAL [facility] STATUS: Home (Routine DC) PAYOR: Medicare APC DESCRIPTION 5481 Laser Eye Procedures ADMIT DX: REASON FOR VISIT DX: H26.492 Other secondary cataract, left eye FINAL DX: PRINCIPAL: H26.492 Other secondary cataract, left eye SECONDARY: PYMT PROC APC STAT DESCRIPTION DOCTOR NAME DATE 03807 5481 T Discission of secondary Matthias Dillon [...] Lary Huerta Date Saved: 11/16/2020 01:26 pm [facility] Consent for Procedure/Surger yon 11-15-2020 Consent for Procedure/Surgery [id number] #1.00CD:127 [facility] Consent for Treatmenton 10-26 Consent for Treatment [id number] 01 [id number] #1.00CD:127 Normal [facility] Discharge Instructionson Discharge Instructions [id number] 120 [id number] #1.00CD:127 Normal [facility] History and Physicalon 11-15 History and Physical [id number] 0 [id number] #1.00CD:127 Normal [facility] IntraOperative Documentson 1 01-16-2020 IntraOperative Documents [id number] #1.00CD:127 Normal [facility] IntraOperative Documents [id number] #1.00CD:127 [facility] Consent for Procedure/Surger yon 11-11-2020 Consent for Procedure/Surgery [id number] 0#1.00CD:127 [facility] Discharge Instructionson Discharge Instructions [id number] [id number] 4#1.00CD:127 Normal [facility] History and Physicalon 11-11 History and Physical [id number] 2 [id number] 0#1.00CD:127 Normal [facility] IntraOperative Documentson 01-12-2020 IntraOperative Documents [id number] 4#1.00CD:127 Normal [facility] IntraOperative Documents [id number] 8#1.00CD:127 Normal [facility] Consent for Treatmenton 10-25 Consent for Treatment [id number] 01 [id number] #1.00CD:127 Normal [facility] COVID-19([facility])on 07-21-2020 COVID-19([facility]) NOT DETECTED Normal NOT DETECTED [facility] Comment on above: Performed By: #### C OVID-19([facility]) #### [facility] [address] [place], [place] [address] COVID-19([facility])on 07-18-2020 Age at specimen collection = Normal [facility] Comment on above: Performed By: #### C OVID-19([facility]) #### [facility] [address] [place], [place] [address] PT/INRon 03-24-2020 INR Coag (PPP) [Relative time] 1.0 {INR} [facility] Interpretation and review of laboratory results Normal [facility] PT Coag (PPP) [Time] 13.[address] [facility] During the induction phase of oral anticoagulation, the INR may not reflect the anticoagulation status of the patient. Therapeutic ranges for INR's are: Most clinical situations: INR 2.0-3.0 Mechanical Prosthetic Valve: INR 2.5-3.5 Critical: INR >5.0 [facility] SCAN OTHER ORDERSon 03-24-20 Ordered by an unspecified provider. [facility] Otheron 02-18-2020 Ordered by an unspecified provider. [facility] XR HIP 2-3 VW W PELVIS LEFTo [...] Woodson Jr., MD 12/24/19 Final result Normal [facility] XR HIP 2-3 VW W PELVIS LEFTO rdered By: Ny Parham on 12-24-2019 Left hip prosthesis in anatomic alignment. [facility] Work Phone: EXAM: XR HIP 2-3 VW W PELVIS LEFT HISTORY: M25.552 54-year-old male, left hip pain and burning 3-4 days. COMPARISON: Lumbar spine dictated separately same date. TECHNIQUE: AP pelvis and AP and frog-leg views left hip. FINDINGS: Bilateral total hip prostheses. The left hip prosthesis shows normal alignment and hardware. [employer] Phone: Barry, inZairpn Incoming Radiant Results From [facility] - 12/24/2019 10:06 AM EST EXAM: XR HIP 2-3 VW W PELVIS LEFT HISTORY: M25.552 54-year-old male, left hip pain and burning 3-4 days. COMPARISON: Lumbar spine dictated separately same date. TECHNIQUE: AP pelvis and AP and frog-leg views left hip. FINDINGS: Bilateral total hip prostheses. The left hip prosthesis shows normal alignment and hardware. IMPRESSION: Left hip prosthesis in anatomic alignment. [employer] Phone: XR LUMBAR SPINE (MIN 4 VIEWS [...] Woodson Jr., MD 12/24/19 Final result Normal [facility] XR LUMBAR SPINE (MIN 4 VIEWS )Ordered By: Ny Parham on 12-24-2019 Multilevel moderate degenerative change. [employer] Phone: EXAM: XR LUMBAR SPINE (MIN 4 VIEWS) HISTORY: M25.552, 54-year-old male left hip pain, burning. COMPARISON: Pelvis and left hip dictated separately same date. TECHNIQUE: 5 views lumbar spine. FINDINGS: Moderate diffuse disc degenerative change. Partial inclusion of bilateral hip prostheses. Anastomotic suture ring and surgical clips near the ascending colon. [employer] Phone: Barry, Mhpn Incoming Radiant Results From [facility] - 12/24/2019 10:06 AM EST EXAM: XR LUMBAR SPINE (MIN 4 VIEWS) HISTORY: M25.552, 54-year-old male left hip pain, burning. COMPARISON: Pelvis and left hip dictated separately same date. TECHNIQUE: 5 views lumbar spine. FINDINGS: Moderate diffuse disc degenerative change. Partial inclusion of bilateral hip prostheses. Anastomotic suture ring and surgical clips near the ascending colon. IMPRESSION: Multilevel moderate degenerative change. [employer] Phone: Basic Metabolic Panlon 12-09 Anion gap [Moles/Vol] 14 mmol/L Normal 9-18 [facility] Comment on above: Performed By: #### B YA, HFP, LD6 #### [facility] [address] [address] Calcium [Mass/Vol] 8.9 mg/dL Normal 8.5-10.2 [facility] Comment on above: Performed By: #### B YA, HFP, LD6 #### [facility] [address] [address] Chloride [Moles/Vol] 99 mmol/L Normal 97-105 [facility] Comment on above: Performed By: #### B YA, HFP, LD6 #### [facility] [address] [address] CO2 [Moles/Vol] 25 mmol/L Normal 22-30 [facility] Comment on above: Performed By: #### B MP, HFP, LD6 #### [facility] [address] [address] Creatinine [Mass/Vol] 1.08 mg/dL Normal 0.73-1.22 [facility] Comment on above: Performed By: #### B MP, HFP, LD6 #### [facility] [address] [address] eGFR- Amer. >60 Normal [facility] Comment on above: Performed By: #### B MP, HFP, LD6 #### [facility] [address] [address] GFR/1.73 sq M predicted among non-blacks MDRD (S/P/Bld) [Vol rate/Area] mL/min/{1.73_m2} Normal [facility] Comment on above: Result Comment: eGFR [...] By: #### B DARELL PANDYA LD6 #### [facility] [address] [address] Glucose [Mass/Vol] 98 mg/dL Normal 74-99 [facility] Comment on above: Result Comment: The [place] [employer] (ADA) provides guidance for cutoff [...] Standards of Medical Care in Diabetes 2016, [place] [employer]. Diabetes Care. 2016.39(Suppl 1). Performed By: #### B DARELL PANDYA, LD6 #### [facility] [address] [place], [place] [address] Potassium [Moles/Vol] 4.5 mmol/L Normal 3.7-5.1 [facility] Comment on above: Performed By: #### B DARELL PANDYA, LD6 #### [facility] [address] [place], [place] [address] Sodium [Moles/Vol] 138 mmol/L Normal 136-144 [facility] Comment on above: Performed By: #### B DARELL PANDYA, LD6 #### [facility] [address] [place], [place] [address] Urea nitrogen [Mass/Vol] 17 mg/dL Normal 9-24 [facility] Comment on above: Performed By: #### B YA, DARELL, LD6 #### [facility] [address] [place], [place] [address] CNOVSPon 12-09-2019 CNOVSP Visit (SP) Office (HEMAC[facility]) HELENTANIA Manny ([id number]) 1965 M Date Time Provider Department 12/09/19 [...] CBC + DIFF (FOR REMOTE [facility] USE) - HEPATIC FUNCTION PNL - LD [...] questions satisfactorily.. Derek Pereyra D.O. Medical Oncologist [place], [place] C[facility]. Referring Provider: SELF [200] Allergies As of Date: 12/09/2019 (No Known Allergies) Date Reviewed: 12/09/2019 Reviewed by: Amber Villatoro - Fully Assessed Reason for Visit: Lymphoma [564] Cmt: 1 year follow up Primary Visit Diagnosis:Diffuse large B-cell lymphoma, unspecified body region (HCC) [C83.30] Order(s):BASIC METABOLIC PNL [SQBMP] Order #: [id number] STANDING CBC + DIFF (FOR REMOTE [facility] USE) [SQRCBCDF] Order #: [id number] STANDING HEPATIC FUNCTION PNL [SQHFP] Order #: [id number] STANDING LD LACTATE DEHYDRO [SQLD6] Order #: [id number] STANDING Prescriptions as of 12/09/2019 Sig: AMIODARONE [...] by ARON PEREYRA DO on 12/12/19 Normal [facility] Hepatic Functn Panelon 12-09 Albumin [Mass/Vol] 4.1 g/dL Normal 3.9-4.9 [facility] Comment on above: Performed By: #### B MP, HFP, LD6 #### [facility] [address], [place] [address] ALP [Catalytic activity/Vol] 84 U/L Normal 38-113 [facility] Comment on above: Performed By: #### B MP, HFP, LD6 #### [facility] [address] [place], [place] [address] ALT [Catalytic activity/Vol] 8 U/L Low 10-54 [facility] Comment on above: Performed By: #### B MP, HFP, LD6 #### [facility] [address] [employer] [place] [address] AST [Catalytic activity/Vol] 24 U/L Normal 14-40 [facility] Comment on above: Performed By: #### B MP, HFP, LD6 #### [facility] [address] [place], [place] [address] Bilirubin [Mass/Vol] 0.2 mg/dL Normal 0.2-1.3 [facility] Comment on above: Performed By: #### B MP, HFP, LD6 #### [facility] [address] [place], [place] [address] Bilirubin,Conjugated <0.2 Normal <0.2 [facility] Comment on above: Performed By: #### B MP, HFP, LD6 #### [facility] [address] [place], [place] [address] Protein [Mass/Vol] 6.8 g/dL Normal 6.3-8.0 [facility] Comment on above: Performed By: #### B MP, HFP, LD6 #### [facility] [address] [place], [place] [address] LDon 12-09-2019 LD 254 U/L High 135-225 [facility] Comment on above: Result Comment: Resu lts may be falsely increased due to interference by hemolysis. Suggest reorder as clinically indicated. Performed By: #### B MP, HFP, LD6 #### [facility] [address] [place], [place] [address] PROGRESSon 12-09-2019 PROGRESS HNO ID: [id number] Author: Aron Pereyra Service: ? Author Type: [...] CBC + DIFF (FOR REMOTE [facility] USE) - HEPATIC FUNCTION PNL - LD [...] as needed. His primary care provider, Dr. Sprniger and I communicate regularly regarding many patients. [...] questions satisfactorily.. Derek Pereyra D.O. Medical Oncologist [facility]. Normal [facility] Remote CBCDIF (for [facility] use o nly)on 12-09-2019 Abs Baso <0.03 Normal 0.00-0.10 [facility] Abs [place] 0.65 k/uL Normal 0.00-0.86 [facility] Abs Neut 3.48 k/uL Normal 1.45-7.50 [facility] Basophils/100 WBC (Bld) 0.3 % Normal [facility] Eosinophils (Bld) [#/Vol] 0.12 10*3/uL Normal 0.00-0.45 [facility] Eosinophils/100 WBC (Bld) 2.0 % Normal [facility] Erythrocyte distribution width (RBC) [Ratio] 15.7 % High 11.5-15.0 [facility] Hematocrit (Bld) [Volume fraction] 38.4 % Low 39.0-51.0 [facility] Hemoglobin (Bld) [Mass/Vol] 12.4 g/dL Low 13.0-17.0 [facility] Lymphocytes (Bld) [#/Vol] 1.59 10*3/uL Normal 1.00-4.00 [facility] Lymphocytes/100 WBC (Bld) 27.1 % Normal [facility] MCH (RBC) [Entitic mass] 27.7 pG Normal 26.0-34.0 [facility] MCHC (RBC) [Mass/Vol] 32.3 g/dL Normal 30.5-36.0 [facility] MCV (RBC) [Entitic vol] 85.7 fL Normal 80.0-100.0 [facility] Monocytes/100 WBC (Bld) 11.1 % Normal [facility] Neutrophils/100 WBC (Bld) 59.5 % Normal [facility] Platelet mean volume (Bld) [Entitic vol] 9.3 fL Normal 9.0-12.7 [facility] Platelets (Bld) [#/Vol] 196 10*3/uL Normal 150-400 [facility] RBC (Bld) [#/Vol] 4.48 10*6/uL Normal 4.20-6.00 [facility] WBC (Bld) [#/Vol] 5.86 10*3/uL Normal 3.70-11.00 [facility] Cardiovascular Lab Reporton 09-04-2019 Cardiovascular Lab Report [facility] Patient Name: Tania Venegas [facility] MR #: [id number] Physician: Abhijit Lala of [facility] Medicine Service Date: 09/03/2019 Division of Birthdate: 1965 Cardiology Room #: [facility] Cardiovascular Services [facility] [address] [place] [address] Cardiovascular Laboratory Report INDICATION: The patient is a 54-year-old man with a prior history of coronary artery disease by cardiac catheterization in 2016. 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 He has history of atrial fibrillation [...] signed informed consent. He was brought to labor operator in a fasting state. The right groin area was prepped and draped in usual fashion. Using micropuncture technique, the right common femoral artery was accessed. The inner cannula was advanced. Limited right femoral angiography was performed followed by upsizing to a 6-[place] x 11 cm sheath. Access was obtained using the same technique in the right common femoral vein and a 6-[place] x 11 cm sheath was placed. A 6-[place]izen [place] Medina catheter was used for right heart catheterization with measurement of pressures and calculation of cardiac output using the estimated Tarun method. Medina catheter was removed. Bilateral selective coronary angiography was then performed using 6-[place] JL4 and JR4 diagnostic catheters. Catheters were [...] Zelaya M.D. Date Trans: 09/04/2019 02:33 Nikkie/richy [id number] cc: Oliver Springer D.O. [address] [place] [address] Normal [facility] CTA HEART-CORONARY/ ARTERY B YPASS GRAFT WITH 3DPPon 08-13-2019 CTA HEART-CORONARY/ ARTERY BYPASS GRAFT WITH 3DPP [facility] Department of Radiology [address] [place] [address] Patient Name: TANIA VENEGAS : 1965 Sex: M Age: Race: White Pt. Location: 30 Patient Status: O Ordered Date: 08/04/2019 10:20:00 AM Completed Date: 08/13/2019 02:29 PM Requesting Provider: VERNON REYNOLDS Attending Provider: VERNON REYNOLDS Report Copy To: OLIVER SPRINGER Signs & Symptoms: I50.30 Unspecified diastolic (congestive) heart failure I10 History: [place] [facility] npc cta/ medicare [...] procedure Electronically signed by:Rose Cabrera. Transcribed by: [email or web address], User Resident: Electronically Signed by: ROSE CABRERA @ 08/13/2019 09:06 PM Normal [facility] Vital Signs Date Time Vital Sign Value Performing Clinician Facility 09-26-2023 10:35-0400 Diastolic blood pressure 65 mm[Hg] Ajit Hurtado MD Work Phone: [facility] 09-26-2023 10:35-0400 Heart rate 89 /min Ajit Hurtado MD Work Phone: [facility] 09-26-2023 10:35-0400 Systolic blood pressure 101 mm[Hg] Ajit Hurtado MD Work Phone: [facility] 09-26-2023 10:34-0400 Body height 185.4 cm Ajit Hurtado MD Work Phone: [facility] 09-26-2023 10:34-0400 Body mass index (BMI) [Ratio] 34.55 kg/m2 Ajit Hurtado MD Work Phone: [facility] 09-26-2023 10:34-0400 Body weight 118.8 kg Ajit Hurtado MD Work Phone: [facility] 09-26-2023 10:34-0400 Respiratory rate 16 /min Ajit Hurtado MD Work Phone: [facility] 09-26-2023 10:34-0400 SaO2% (BldA) [Mass fraction] 97 % Ajit Hurtado MD Work Phone: 3(200)021-465083 [address] 01-31-2023 08:48-0500 Diastolic blood pressure 68 mm[Hg] Ajit Hurtado MD Work Phone: 3(273)784-656783 [address] 01-31-2023 08:48-0500 Heart rate 72 /min Ajit Hurtado MD Work Phone: 0(001)971-298854 [place] [address] 01-31-2023 08:48-0500 Systolic blood pressure 109 mm[Hg] Ajit Hurtado MD Work Phone: 0(215)153-052654 [place] [address] 01-31-2023 08:47-0500 Body height 185.4 cm Ajit Hurtado MD Work Phone: 1(110)593-870583 [address] 01-31-2023 08:47-0500 Body mass index (BMI) [Ratio] 34.17 kg/m2 Ajit Hurtado MD Work Phone: 0(851)590-136054 [place] [address] 01-31-2023 08:47-0500 Body weight 117.48 kg Ajit Hurtado MD Work Phone: 4(034)028-288254 [place] [address] 01-31-2023 08:47-0500 Respiratory rate 18 /min Ajit Hurtado MD Work Phone: 3(495)520-394254 [place] [address] 01-31-2023 08:47-0500 SaO2% (BldA) [Mass fraction] 97 % Ajit Hurtado MD Work Phone: [facility] 01-10-2023 09:33-0500 Body height 185.4 cm Ajit Hurtado MD Work Phone: [facility] 01-10-2023 09:33-0500 Body mass index (BMI) [Ratio] 33.64 kg/m2 Ajit Hurtado MD Work Phone: 3(867)862-992683 [address] 01-10-2023 09:33-0500 Body weight 115.67 kg Ajit Hurtado MD Work Phone: 2(652)746-975283 [address] 08-30-2022 09:25-0400 Diastolic blood pressure 87 mm[Hg] Ajit Hurtado MD Work Phone: 9(483)228-498154 [place] [address] 08-30-2022 09:25-0400 Heart rate 66 /min Ajit Hurtado MD Work Phone: 2(956)434-782454 [place] [address] 08-30-2022 09:25-0400 Systolic blood pressure 135 mm[Hg] Ajit Hurtado MD Work Phone: 8(630)945-568554 [place] [address] 08-30-2022 09:24-0400 Body height 182.9 cm Ajit Hurtado MD Work Phone: 5(375)164-628683 [address] 08-30-2022 09:24-0400 Body mass index (BMI) [Ratio] 34.98 kg/m2 Ajit Hurtado MD Work Phone: 6(098)278-887654 [place] [address] 08-30-2022 09:24-0400 Body weight 116.98 kg Ajit Hurtado MD Work Phone: 6(299)008-151154 [place] [address] 08-30-2022 09:24-0400 Respiratory rate 18 /min Ajit Hurtado MD Work Phone: [facility] 08-30-2022 09:24-0400 SaO2% (BldA) [Mass fraction] 98 % Ajit Hurtado MD Work Phone: 8(202)225-713283 [address] 03-24-2020 13:50-0400 BP Diastolic 88 mm[Hg] Evie Candelaria [facility] 03-24-2020 13:50-0400 BP Systolic 145 mm[Hg] [facility] 03-24-2020 13:50-0400 Pulse (Heart Rate) 64 /min [facility] 03-24-2020 13:50-0400 Pulse Oximetry 100 % [facility] 03-24-2020 13:50-0400 Respiratory Rate 19 /min [facility] 03-24-2020 12:10-0400 Body Temperature 97.7 [degF] [facility] 03-24-2020 06:55-0400 BMI (Body Mass Index) 34.55 kg/m2 [facility] 03-24-2020 06:55-0400 Body weight 118.8 kg [facility] 03-24-2020 06:55-0400 Height 185.4 cm [facility] Encounters Encounter Date Encounter Type Care Provider Facility Start: 02-26-2024 End: 02-26-2024 ambulatory [facility] Start: 01-09-2024 ambulatory OLIVER SPRINGER JR. Fa cility:[facility] Start: 01-09-2024 End: 01-09-2024 Clinical Support Encounter Alexander Cox MD Work Phone: [facility] Comment on above: PVC's (premature nuris tricular contractions) (Primary Dx) Start: 01-09-2024 ambulatory OLIVER SPRINGER JR. Fa cility:[facility] Start: 12-27-2023 Telephone encounter Dax gomes Intelligence Group Supervisor [facility] Comment on above: Outside Medical Bhanu rds Request Start: 11-06-2023 ambulatory Maria Elena Melendrez RN [facility] Start: 09-26-2023 ambulatory OLIVER SPRINGER JR. Fa cility:[facility] Start: 09-26-2023 End: 09-26-2023 Office outpatient visit 25 minutes Ajit Hurtado MD Work Phone: Intelligence [employer] Supervisor [facility] Comment on above: Chronic systolic hea rt failure (Primary Dx); PVC (premature ventricular contraction); Paroxysmal atrial fibrillation; Coronary artery disease involving [place] coronary artery of [place] heart without angina pectoris Start: 09-04-2023 End: 09-04-2023 ambulatory KELLY [facility] Start: 07-25-2023 ambulatory OLIVER Gomes VALTANGELA JR. Fa cility:[facility] Start: 07-02-2023 ambulatory OLIVER SPRINGER JR. Fa cility:[facility] Start: 06-28-2023 ambulatory OLIVER Gomes VALTANGELA JR. Fa cility:[facility] Start: 06-05-2023 End: 06-05-2023 ambulatory MARIOLA [facility] Start: 05-31-2023 ambulatory OLIVER Gomes ADRIELTANGELA JR. Fa cility:[facility] Start: 05-23-2023 ambulatory OLIVER SPRINGER JR. Fa cility:[facility] Start: 05-23-2023 ambulatory OLIVER SPRINGER JR. Fa cility:[facility] Start: 05-03-2023 ambulatory OLIVER Gomes ADRIELTANGELA JR. Fa cility:[facility] Start: 04-04-2023 ambulatory OLIVER SPRINGER JR. Fa cility:[facility] Start: 03-25-2023 End: 04-24-2023 ambulatory SHAIKH Dereck GARCÍA Facility:[facility] Start: 03-07-2023 ambulatory OLIVER SPRINGER JR. Fa cility:[facility] Start: 02-25-2023 End: 03-22-2023 ambulatory NOWAKMARTINEZ ROSARIOWAD Facility:[facility] Start: 02-07-2023 ambulatory OLIVER Gomes GIAN JR. Fa cility:[facility] Start: 01-31-2023 ambulatory OLIVER SPRINGER JR. Fa cility:[facility] Start: 01-31-2023 End: 01-31-2023 Office outpatient visit 25 minutes Ajit Hurtado MD Work Phone: Intelligence Group Supervisor [facility] Comment on above: Chronic systolic hea rt failure (Primary Dx); PVC (premature ventricular contraction); Paroxysmal atrial fibrillation; Coronary artery disease involving [place] coronary artery of [place] heart without angina pectoris Start: 01-23-2023 End: 02-22-2023 ambulatory SHAIKH Dereck GARCÍA Facility:[facility] Start: 01-10-2023 End: 01-10-2023 Subsequent hospital visit by physician Ajit Hurtado MD Work Phone: [facility] Start: 01-10-2023 End: 01-10-2023 Subsequent hospital visit by physician Ajit Hurtado MD Work Phone: Cardiovascular Imaging Lab [facility] Comment on above: Arrived Start: 12-26-2022 End: [...] 25 minutes Ajit Hurtado MD Work Phone: [facility] Group Supervisor [facility] Comment on above: Chronic systolic hea rt failure (Primary Dx); Paroxysmal atrial fibrillation; PVC (premature ventricular contraction); Coronary artery disease involving [place] coronary artery of [place] heart without angina pectoris Start: 08-26-2022 End: 09-24-2022 ambulatory NOWAK H FAWWAD Facility:[facility] Start: 07-26-2022 End: 08-25-2022 ambulatory NOWAK H FAWWAD Facility:[facility] Start: 06-25-2022 End: 07-25-2022 ambulatory NOWAK H FAWWAD Facility:[facility] Start: 06-01-2022 End: 06-02-2022 ambulatory Delmy Frey RN [facility] Group Supervisor [facility] Start: 05-25-2022 End: 06-22-2022 ambulatory NOWAK H FAWWAD Facility:[facility] Start: 08-24-2021 End: 08-24-2021 Subsequent hospital visit by physician [facility] Work Phone: [facility] Comment on above: Canceled (Cancel [place] son Not Listed - Please provide detailed information) Start: 03-24-2020 End: 03-24-2020 Patient encounter procedure EVIEJAYME MARIN [facility] Start: 03-24-2020 End: 03-24-2020 Subsequent hospital visit by physician Evie Candelaria Work Phone: [facility] Comment on above: Ankle arthritis ([place] mai Dx) Start: 03-23-2020 End: 03-23-2020 Patient encounter procedure [facility] Start: 12-24-2019 End: 12-27-2019 Patient encounter procedure [place] D[facility] Start: 12-24-2019 End: 12-26-2019 Subsequent hospital visit by physician Dolores 1 [facility] Comment on above: Left hip pain Start: 12-24-2019 End: 12-27-2019 Patient encounter procedure [place] [facility] Start: 12-24-2019 End: 12-26-2019 Subsequent hospital visit by physician Oliver Springer DO Work Phone: [facility] Start: 09-03-2019 End: 09-04-2019 Patient encounter procedure PROVIDER UNKNOWN Facility:[facility] Procedures Date Procedure Procedure Detail Performing Clinician [...] procedure 01/14/2025 10:30 AM EST Office Visit [facility] Super[facility] [address] [place] [phone] Alexander Cox MD [address] [place] [phone] [facility] Group Super[facility] Start: 11-05-2024 Potassium [Moles/volume] in Serum or Plasma POTASSIUM [facility] Start: 07-09-2024 End: 07-09-2024 Patient encounter procedure 07/09/2024 1:30 PM EDT Office Visit [facility] [place] [address] [facility] [address] [place] [address] [facility] [place] Start: 04-09-2024 End: 04-09-2024 Patient encounter procedure 04/09/2024 11:30 AM EDT Office Visit [facility] Super[facility] [address] [place] [phone] Ajit Hurtado MD [address] [place] [phone] Intelligence Group Supervisor [facility] Start: 01-09-2024 End: 01-09-2024 Patient encounter procedure [employer] Supervisor [facility] Start: 11-28-2023 End: 11-28-2023 Patient encounter procedure [facility] [place] Start: 09-26-2023 End: 09-26-2024 CHEM 6 (LYTES, BUN CREA) CHEM 6 (LYTES, BUN CREA) Lab Routine Chronic systolic heart failure Expected: 09/26/2023, Expires: 09/26/2024 [facility] Comment on above: Expected: 09/26/2023, Expires: Start: 09-26-2023 End: 09-26-2024 Natriuretic peptide B [Mass/volume] in Blood B-TYPE NATRIURETIC PEPTIDE (BRAIN) Lab Routine Chronic systolic heart failure Expected: 09/26/2023, Expires: 09/26/2024 [facility] Comment on above: Expected: 09/26/2023, Expires: Start: 08-01-2023 End: 08-01-2023 Patient encounter procedure 08/01/2023 Office Visit Cardiovascular Medicine Ajit Hurtado MD [address] [place] [phone] Intelligence Group Supervisor [facility] Start: 07-26-2023 COVID-19 VACCINE ( season) COVID-19 VACCINE () [facility] Start: 07-26-2023 Influenza vaccination INFLUENZA VACCINE (#1) [facility] Start: 05-08-2023 End: 05-08-2023 Patient encounter procedure 05/08/2023 Office Visit Pharmacy Intelligence Group Supervisor [facility] Start: 01-17-2023 End: 01-17-2023 Patient encounter procedure 01/17/2023 Office Visit Cardiovascular Medicine Ajit Hurtado MD [address] [place] [phone] [employer] Supervisor [facility] Start: 01-10-2023 End: 01-10-2023 Patient encounter procedure 01/10/2023 Office Visit Electrophysiology Alexander Cox MD [address] [place] [phone] Intelligence [employer] Supervisor [facility] Start: 01-10-2023 End: 01-10-2023 Patient encounter procedure 01/10/2023 Appointment Echocardiography Ajit Hurtado MD [address] [place] [phone] Cardiovascular Imaging Lab [facility] Start: 11-07-2022 End: 11-07-2022 Patient encounter procedure [employer] Super[facility] Start: 08-30-2022 End: 08-30-2023 Cardiopulmonary exercise test FUNCTIONAL VO2 TESTING Stress Echocardiography Routine Chronic systolic heart failure Expected: 08/30/2022, Expires: 08/30/2023 [facility] Comment on above: Expected: 08/30/2022, Expires: 3 Start: 08-30-2022 End: 08-30-2023 CHEM 6 (LYTES, BUN CREA) CHEM 6 (LYTES, BUN CREA) Lab Routine Chronic systolic heart failure Expected: 08/30/2022, Expires: 08/30/2023 [facility] Comment on above: Expected: 08/30/2022, Expires: 3 Start: 08-30-2022 End: 08-30-2022 Patient encounter procedure 08/30/2022 Office Visit Cardiovascular Medicine Ajit Hurtado MD [address] [place] [phone] Intelligence Group Supervisor [facility] Start: 07-26-2022 Influenza vaccination INFLUENZA VACCINE (#1) [facility] Start: 12-24-2019 Annual Wellness Visit (AWV) Annual Wellness Visit (AWV) [employer] Phone: Start: 07-26-2019 Influenza vaccination Flu vaccine (#1) [employer] Phone: Start: 07-26-2019 Influenza vaccination given Sequential Influenza Vaccine (#1) [facility] Start: 2015 Administration of herpes zoster vaccine Zoster Vaccines (1 of 2) [facility] Start: 2015 Colon cancer screen colonoscopy Colon cancer screen colonoscopy [employer] Phone: Start: 2015 Prostate specific antigen measurement PROSTATE CANCER SCREENING DISCUSSION [facility] Start: 2015 Shingles Vaccine (1 of 2) Shingles Vaccine (1 of 2) [employer] Phone: Start: 2015 Zoster vaccine hzv live for subcutaneous use ZOSTER (SHINGLES) VACCINE (1 of 2) [facility] Start: 2010 Colonoscopy COLORECTAL CANCER SCREENING DISCUSSION [facility] Start: 2010 Screening for malignant neoplasm of colon COLORECTAL CANCER SCREENING DISCUSSION [facility] Start: 2005 Fasting lipid profile LIPID SCREENING [facility] Start: 2005 Lipid panel LIPID SCREENING [facility] Start: 2005 Lipid screen Lipid screen [employer] Phone: Start: 1984 Hepatitis B vaccination HEP B VACCINE (1 of 3 - 19+ 3-dose series) [facility] Start: 1984 Third diphtheria, tetanus and acellular pertussis (DTaP) vaccination TDAP (ADULT) [facility] Start: 1983 Tetanus vaccination TETANUS [facility] Start: 1980 HIV screen HIV screen [employer] Phone: Start: 1980 HIV screening HIV SCREENING DISCUSSION [facility] Start: 1976 DTaP/Tdap/Td vaccine (1 - Tdap) DTaP/Tdap/Td vaccine (1 - Tdap) [employer] Phone: Start: 1968 History and physical examination, annual for health maintenance Wellness Visit [facility] Start: 03-02-1966 COVID-19 VACCINE (#1) COVID-19 VACCINE (#1) [facility] Start: 1965 Hepatitis B vaccination HEP B VACCINE (1 of 3 - 3-dose series) [facility] Start: 1965 Hepatitis C antibody, confirmatory test [facility] Start: 1965 Hepatitis C screen [facility]atitis [facility] screen [facility] Phone: Start: 1965 Hepatitis C screening HEPATITIS C VIRUS SCREENING [facility] Start: 1965 Prostate specific antigen measurement PSA Level [facility] Start: 1965 Screening for malignant neoplasm of colon Colorectal Cancer Screening: Colonoscopy [facility] Start: 1965 Tetanus vaccination [facility] Measurement of respiratory function PFT STANDARD PFT Routine Encounter for long-term (current) use of high-risk medication PVC's (premature ventricular contractions) Encounter for long-term (current) use of medications 11/07/2022 2:40 PM EST [facility] Payers Date Payer Category Payer Medicare [id number] 2019 Medicare xxxxxxx [id number] 2019 Unknown [id number] 1965 Unknown [id number] 2.16.84 0.1.332573.3.579.2.174 1965 Unknown [id number] 2.16.84 0.1.950334.3.579.2.174 1965 Unknown [id number] 2.16.84 0.1.764732.3.579.2.174 1965 Unknown [id number] 2.16.8 40.1.863116.3.579.2.902 1965 Unknown [id number] 2.16.8 40.1.653985.3.579.2.902 1965 Unknown [id number] 2.16.8 40.1.083241.3.579.2.647 1965 Unknown [id number] 2.16.84 0.1.847729.3.579.2.593 1965 Unknown [id number] 2.16.84 0.1.597425.3.579.2.593 1965 Unknown [id number] 2.16.84 0.1.018816.3.579.2.593 1965 Unknown [id number] 2.16.84 0.1.350095.3.579.2.593 1965 Unknown [id number] 2.16.84 0.1.011145.3.579.2.593 1965 Unknown [id number] 2.16.84 0.1.119875.3.579.2.593 1965 Unknown [id number] 2.16.84 0.1.458483.3.579.2.593 1965 Unknown [id number] 2.16.84 0.1.051911.3.579.2.593 1965 Unknown [id number] 2.16.84 0.1.671567.3.579.2.593 1965 Unknown [id number] 2.16.84 0.1.485981.3.579.2.593 1965 Unknown [id number] 2.16.84 0.1.980296.3.579.2.593 1965 Unknown [id number] 2.16.84 0.1.606947.3.579.2.593 1965 Unknown [id number] 2.16.84 0.1.081029.3.579.2.593 1965 Unknown [id number] 2.16. [id number] 1965 Unknown [id number] 2.16. [id number] 1965 Unknown [id number] 2.. [id number] 1965 Unknown [id number] 2.16 840.1.000793.3.579.2.594 1965 Unknown [id number] 2. 840.1.031365.3.579.2.594 1965 Unknown [id number] 2. 840.1.105610.3.579.2.594 1965 Unknown [id number] 2. 840.1.824805.3.579.2.594 1965 Unknown [id number] 2. 840.1.980890.3.579.2.594 1965 Unknown [id number] 2. 840.1.571941.3.579.2.594 1965 Unknown [id number] 2. 840.1.016705.3.579.2.594 1965 Unknown [id number] 2. 840.1.707560.3.579.2.594 1965 Unknown [id number] 2. 840.1.219456.3.579.2.594 1965 Unknown [id number] 2. 840.1.002953.3.579.2.594 1965 Unknown [id number] 2. 840.1.898482.3.579.2.594 1965 Unknown [id number] 2. [id number] 1959 Medicare [id number] Medicare [id number] Unknown [id number] Social History Date Type Detail Facility Start: 03-23-2020 End: 05-23-2023 Tobacco smoking status NHIS Never smoker [employer] Phone: Start: 03-23-2020 End: 01-31-2023 Alcohol intake Current drinker of alcohol (finding) [facility] Start: 1965 Sex Assigned At Not on file [employer] Phone: Start: 05-09-2017 End: 05-23-2023 Tobacco use and exposure Smokeless tobacco non-user [facility] Start: 07-21-2020 History SDOH Alcohol Frequency 2 [facility] Start: 05-02-2022 History SDOH Alcohol Comment occasional [facility] Start: 06-29-2021 End: 09-26-2023 Alcohol intake [facility] Start: 10-28-2022 End: 01-31-2023 Exposure to SARS-CoV-2 (event) Not sure [facility] Start: 09-26-2023 Alcohol intake Ex-drinker (finding) [facility] Start: 07-21-2020 End: 09-26-2023 Alcohol Use Disorder Identification Test - Consumption [AUDIT-C] [facility] How often to you hav e a drink containing alcohol? Monthly or less [facility] Average Number of Drinks Not on file [facility] Start: 09-26-2023 Alcohol Comment occasionally few beers-not weekly [facility] Gender identity Identifies as micha fleming gender (finding) [facility] Medical Equipment Procedure Code Equipment Code Equipment Origin al Text Equipment Identifier Dates Filler 10cc Bone Void Cerament - [id number] Start: 03-24-2020 Screw 3.5 X 30mm Non Lock Ti Alloy Motoband Cp - [id number] Start: 03-24-2020 Bioactive Bone G raft Putty 7.5cc [id number] Start: 03-24-2020 Screw 7 X 55 X 1 6mm Umesh Headed Short Thrd Unite - [id number] Start: 03-24-2020 Plate 18mm Z Bet a Motoband Max - [id number] Start: 03-24-2020 Dynaforce Plate Sterile Instrument Kit [id number] Start: 03-24-2020 Kit 18 X 18 X 18 mm Superelastic Motoclip Himax - [id number] Start: 03-24-2020 Screw 4.5 X 50mm Umesh Headed Unite - [id number] Start: 03-24-2020 4 Screws And 2 [...] Type Note Facility 02-26-2024 Note Cardiovascular Medic [facility] SUBJECTIVE Chief Complaint Patient presents with Follow-up Patient is here today with increased sob and dizziness Was evaluated in the ER yesterday Tania Venegas is a 58 y.o. male here for follow-up. 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 He also [...] 30 - improvement from the one at [facility] in April 2022. - GDMT: continue [...] 3.) Non-obstructive CAD: Stable. Managed by local head wood grinder. 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 [facility] 12-27-2023 Telephone encounter Note Received recent pacemaker check. Routing to Lana Brown, and RUPINDER. [facility] 12-27-2023 Miscellaneous Notes Received recent pacemaker [...] our clinic Following Provider: Dr. Abhijit Zelaya [phone] documented in this encounter [facility] 12-27-2023 Telephone encounter Note Received a call from Dr. Abhijit Zelaya office letting me know that pt has not been seen at the office since 2020 and that he is monitored by [facility] medical Care on his home monitor. Called and spoke with Carmela and she will work on getting the recent check faxed to us shortly. [facility] 12-27-2023 Telephone encounter Note ----- Message from Dax Estrada sent at 12/27/2023 8:37 AM EST ----- Called and LM with device clinic asking them to fax the recent pacemaker check. Left call back and fax numbers. Jesus ----- Message ----- From: Annemarie Anne Sent: 12/26/2023 3:54 PM EST To: [facility] Ep [facility] Pool DR. Cox Apt 01/09/24 Patient is inactive with our clinic Following Provider: Dr. Abhijit Zelaya [phone] [facility]-06-[facility]23 Telephone encounter Note Images from the original note were not included. MD Maria Elena Daniel RN; P [facility] Heart Failure Nurse Pool Caller: Unspecified (Today, 10:59 AM) Thanks, labs look good with med changes last visit. LVM with the above message and stated he could call back if he had any questions. [facility] 11-06-2023 Miscellaneous Notes Images from the original note were not included. MD Maria Elena Daniel, RN; P [facility] Heart Failure Nurse Pool Caller: Unspecified (Today, 10:59 AM) Thanks, labs look good with med changes last visit. LVM with the above message and stated he could call back if he had any questions. Received fax from [facility] with outside lab orders. Manually entered. Forwarded in outlook to [facility]. Routed to Dr. Hurtado for review. documented in this encounter [facility] 11-06-2023 Telephone encounter Note Received fax from [facility] with outside lab orders. Manually entered. Forwarded in outlook to [facility]. Routed to Dr. Hurtado for review. [facility] 09-26-2023 History of Present illness Narrative Tania Venegas is a 58 y.o. 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 PCP: Dr. Oliver Springer; Cardiology: Dr. 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 -Echo 11/2021: LVEF 25-30%, Grade 2 diastolic dysfunction, YNES, mild MR/TR, RVSP 40 mmHg -Echo 06/2019: LVEF 30-35% -LHC around 2016 ([facility]): no CAD -C 09/03/2019 ([facility]): mild non-obstructive CAD -[facility] 09/03/2019 ([facility]): RA 6, PA 38/18 (29) PCWP 18, [...] evening at 6 PM. INR managed at [facility] Review of Systems A complete review of [...] with jardiance and farxiga expensive Ivabradine: no UTILITY ASSEMBLER: yes ICD: yes CardioMEMS: no Other: amiodarone [...] 30 - improvement from the one at [facility] in April 2022. - GDMT: continue [...] 3.) Non-obstructive CAD: Stable. Managed by local head wood grinder. On rosuvastatin 10mg daily - due to [...] Medicine Advanced Heart Failure and Transplant Program [facility] [email or web address] [phone] fax [phone] Patient Education Patient education regarding the following topic(s) was provided on 09/26/2023: Recommendations from Dr Hurtado at your office appt today at [facility]: Take lasix (furosemide) 40mg daily Labs next week Continue other current medications Return appt Dr Hurtado in 6 months Your after visit summary (AVS) is viewable in [facility] My Chart. Call RN if you have cardiac questions/concerns M-F 8 to 4:30 ; office # [phone], option 6, then option 2. Guidelines for home management: 1. Continue to monitor weight first thing each morning. 2. Report to the CHF CLINIC ([phone]) any significant weight change. Remember that weight [...] to have labs/tests run outside of the [facility] and you do not hear from us 1-2 days after they are performed, you must call us to ensure we received the results. Office fax # [phone]. No news does not necessarily mean that your tests are normal, it could mean we did not get the results. For questions/updates: please provide your name with spelling, date of and question or update All calls are prioritized and responses researched, if possible, prior to calls being returned. Call Scheduling for any appointment/procedure verification or changes [phone], option 7 or [facility] Schedulers at [phone], option 1. Those in attendance for the [...] medication, labs documented in this encounter [facility] 09-26-2023 Instructions Jovita Cerda RN - 09/26/2023 11:30 AM EDT Recommendations from Dr Hurtado at your office appt today at [facility]: Take lasix (furosemide) 40mg daily Labs next week Continue other current medications Return appt Dr Hurtado in 6 months Your after visit summary (AVS) is viewable in [facility] My Chart. Call RN if you have cardiac questions/concerns M-F 8 to 4:30 ; office # [phone], option 6, then option 2. Guidelines for home management: 1. Continue to monitor weight first thing each morning. 2. Report to the CHF CLINIC ([phone]) any significant weight change. Remember that weight [...] to have labs/tests run outside of the [facility] and you do not hear from us 1-2 days after they are performed, you must call us to ensure we received the results. Office fax # [phone]. No news does not necessarily mean that your tests are normal, it could mean we did not get the results. For questions/updates: please provide your name with spelling, date of and question or update All calls are prioritized and responses researched, if possible, prior to calls being returned. Call Scheduling for any appointment/procedure verification or changes [phone], option 7 or [facility] Heart Schedulers at [phone], option 1. documented in this encounter [facility] 09-04-2023 Note EKG today Bi-V paced Continue amiodarone 100 mg daily and warfarin anticoagulation F/U with Dr Harrell- [facility] EP [facility] 09-04-2023 Note [facility] II-III c- curre ntly appears fluid [...] please maintain K+>4 and Mg > 2 [facility] 09-04-2023 Note Patient here for 9 m [...] All other systems reviewed and are negative. [facility] 09-04-2023 Note [facility] CARDIOLOGY PROGR ESS NOTE [...] Judgment normal. Labs: (more content not included)... [facility] 01-31-2023 History of Present illness Narrative Tania Venegas is a 57 y.o. 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 PCP: Dr. Oliver Springer; Cardiology: Dr. Abhijit Zelaya ([facility]); [facility] () HPI: Tania Venegas is [...] toxicity, diagnosed 2015 with PVCs and bradycardia -UTILITY ASSEMBLER-D: reduced BiV pacing due to PVCs -Echo 11/2021: LVEF 25-30%, Grade 2 diastolic dysfunction, YNES, mild MR/TR, RVSP 40 mmHg -Echo 06/2019: LVEF 30-35% -LHC around 2016 ([facility]): no CAD -LHC 09/03/2019 ([facility]): mild non-obstructive CAD -RHC 09/03/2019 ([facility]): RA 6, PA 38/18 (29) PCWP 18, [...] with jardiance and farxiga expensive Ivabradine: no UTILITY ASSEMBLER: yes ICD: yes CardioMEMS: no Other: amiodarone [...] 30 - improvement from the one at [facility] in April 2022. - GDMT: continue [...] 3.) Non-obstructive CAD: Stable. Managed by local head wood grinder. On crestor 10mg daily - due to [...] I independently evaluated the patient with the sports management intern, and we developed the plan for management together. I have reviewed the above note and edited the essential parts of the note, which reflects my own impression and plan. I agree with the chief complaint, history, exam, and plan as detailed by the sports management intern. Based on the history and exam, I [...] Medicine Advanced Heart Failure and Transplant Program [facility] [email or web address] [phone] fax [phone] documented in this encounter [facility] 01-31-2023 Instructions Amina Guadalupe RN - 01/31/2023 8:30 AM EST Recommendations from Dr Hurtado today: No changes to medications today Please follow up with Dr. Hurtado in 6 months After visit summary (AVS) is viewable in [facility] My Chart. Send My Chart message for non-urgent inquiry or Call RN if you have cardiac questions/concerns M-F 8 to 4:30 ; office # [phone], option 6, then option 2. Guidelines for home management: 1. Continue to monitor weight first thing each morning. 2. Report to the CHF CLINIC ([phone]) any significant weight change. Remember that weight [...] to have labs/tests run outside of the [facility] and you do not hear from us 1-2 days after they are performed, you must call us to ensure we received the results. Office fax # [phone]. No news does not necessarily mean that your tests are normal, it could mean we did not get the results. For questions/updates: please provide your name with spelling, date of and question or update All calls are prioritized and responses researched, if possible, prior to calls being returned. Call Scheduling for any appointment/procedure verification or changes [phone], option 7 or [facility] Heart Schedulers at [phone], option 1. documented in this encounter [facility] 08-30-2022 History of Present illness Narrative [...] toxicity, diagnosed 2015 with PVCs and bradycardia -UTILITY ASSEMBLER-D: reduced BiV pacing due to PVCs -Echo 11/2021: LVEF 25-30%, Grade 2 diastolic dysfunction, YNES, mild MR/TR, RVSP 40 mmHg -Echo 06/2019: LVEF 30-35% -LHC around 2016 ([facility]): no CAD -LHC 09/03/2019 ([facility]): mild non-obstructive CAD -RHC 09/03/2019 ([facility]): RA 6, PA 38/18 (29) PCWP 18, [...] with jardiance and farxiga expensive Ivabradine: no UTILITY ASSEMBLER: yes ICD: yes CardioMEMS: no Other: amiodarone [...] 3.) Non-obstructive CAD: Stable. Managed by local head wood grinder. On crestor 10mg daily - due to [...] I independently evaluated the patient with the sports management intern, and we developed the plan for management together. I have reviewed the above note and edited the essential parts of the note, which reflects my own impression and plan. I agree with the chief complaint, history, exam, and plan as detailed by the sports management intern. Based on the history and exam, I [...] Medicine Advanced Heart Failure and Transplant Program [facility] [email or web address] [phone] fax [phone] documented in this encounter [facility] 08-30-2022 Instructions Delmy Frey RN - [...] M-F 8 to 4:30 ; office # [phone], option 6, then option 2. Guidelines for home management: 1. Continue to monitor weight first thing each morning. 2. Report to the CHF CLINIC ([phone]) any significant weight change. Remember that weight [...] to have labs/tests run outside of the [facility] and you do not hear from us 1-2 days after they are performed, you must call us to ensure we received the results. Office fax # [phone]. No news does not necessarily mean that your tests are normal, it could mean we did not get the results. For questions/updates: please provide your name with spelling, date of and question or update All calls are prioritized and responses researched, if possible, prior to calls being returned. Call Scheduling for any appointment/procedure verification or changes [phone], option 7 or [facility] Heart Schedulers at [phone], option 1. documented in this encounter [facility] 06-05-2022 Telephone encounter Note From: Ajit Hurtado MD Sent: 06/04/2022 5:04 PM EDT To: [facility] Heart Failure Nurse Pool Ok, labs are fine. Thanks. MyChart message sent to patient. [facility] 06-05-2022 Miscellaneous Notes From: Ajit Hurtado MD Sent: 06/04/2022 5:04 PM EDT To: [facility] Heart Failure Nurse Pool Ok, labs are fine. Thanks. MyChart message sent to patient. Outside lab results received, manually entered. documented in this encounter [facility] 06-01-2022 Telephone encounter Note Outside lab results received, manually entered. [facility] 06-01-2022 Miscellaneous Notes Outside lab results received, manually entered. documented in this encounter [facility] Evaluation note Diagnosis Left hip pain Pain in joint, pelvic region and thigh documented in this encounter [employer] Phone: evaluation note* Diagnosis Chronic systolic heart failure- Primary Paroxysmal atrial fibrillation Atrial fibrillation PVC (premature ventricular contraction) Other premature beats Coronary artery disease involving [place] coronary artery of [place] heart without angina pectoris [facility] Diagnosis Encounter for long-term (current) use of high-risk medication Encounter for long-term (current) use of other medications PVC's (premature ventricular contractions) Other premature beats Encounter for long-term (current) use of medications Encounter for long-term (current) use of other medications [facility] Diagnosis Chronic systolic heart failure [facility] Diagnosis Chronic systolic heart failure- Primary PVC (premature ventricular contraction) Other premature beats Paroxysmal atrial fibrillation Atrial fibrillation Coronary artery disease involving [place] coronary artery of [place] heart without angina pectoris [facility] Diagnosis Chronic systolic heart failure- Primary PVC (premature ventricular contraction) Other premature beats Paroxysmal atrial fibrillation Atrial fibrillation Coronary artery disease involving [place] coronary artery of [place] heart without angina pectoris [facility] Diagnosis PVC's (premature ventricular contractions)- [...] FoundDocuments on File Type Date Recorded Patient Pivot Maker Expl anation Advance Directives and Livin g Will 03/24/2020 5:51 AM Documents on File Type Date Recorded Patient Pivot Maker Expl anation Advance Directives and Living Will Power of Mailroom Clerk Latest Code Status on File Code Status [...] VO2 TESTING Ajit Hurtado MD [address] [place] [phone] Referral ID Status Reason Start Date Expiration Date V isits Requested Visits Authorized [id number] New Request 08/30/2022 09/24/2023 1 1 Specialty Diagnoses / Procedures Referred By Natalie whitaker Referred To Contact Diagnoses Encounter for long-term (current) use of high-risk medication PVC's (premature ventricular contractions) Encounter for long-term (current) use of medications Procedures PFT STANDARD Alexander Cox MD [address] [place] [phone] Referral ID Status Reason Start Date Expiration Date V isits Requested Visits Authorized [id number] New Request 05/12/2022 06/06/2023 1 1 Specialty Diagnoses / Procedures Referred By Natalie whitaker Referred To Contact Ajit Hurtado MD [address] [place] [phone] Referral ID Status Reason Start Date Expiration Date Visits Re quested Visits Authorized [id number] Closed 1 1 Additional Source Comments (unrecognized sect ion and content) No Status Records FoundNo Status Records FoundNo Status Records FoundNo Status Records FoundNo Status Records FoundNo Status Records FoundNo Status Records FoundNo Status Records FoundNo Status Records Found INFORMATION SOURCE (unrecogn ized section and content) DATE CREATED AUTHOR 12/12/2019 [facility] DATE CREATED AUTHOR AUTHOR'S ORGANIZ ATION 12/26/2019 [facility] DATE CREATED AUTHOR AUTHOR'S ORGANIZ ATION 04/10/2020 [facility] DATE CREATED AUTHOR AUTHOR'S ORGANIZ ATION 04/13/2020 [facility] DATE CREATED AUTHOR AUTHOR'S ORGANIZ ATION 08/25/2020 [facility] DATE CREATED AUTHOR AUTHOR'S ORGANIZ ATION 11/24/2020 [facility] DATE CREATED AUTHOR AUTHOR'S ORGANIZ ATION 05/03/2023 [facility] DATE CREATED AUTHOR AUTHOR'S ORGANIZ ATION 01/11/2024 [facility] DATE CREATED AUTHOR AUTHOR'S ORGANIZ ATION 03/03/2024 [facility] Reason for Visit (unrecogniz ed section [...] STANDARD Alexander Cox MD [address] [place] [address] Referral ID Status Reason Start Date Expiration Date V isits Requested Visits Authorized [id number] New Request 05/12/2022 06/06/2023 1 1 Specialty Diagnoses / Procedures Referred By Natalie whitaker Referred To Contact Diagnoses Chronic systolic heart failure Procedures FUNCTIONAL VO2 TESTING Ajit Hurtado MD [address] [place] [address] Referral ID Status Reason Start Date Expiration Date V isits Requested Visits Authorized [id number] New Request 08/30/2022 09/24/2023 1 1 Reason Comments Follow-up Reason Comments Follow-up Denies chest pain; i nforms local head wood grinder started lasix which has helped Reason Onset [...] Name: Tania Venegas Admit Date: MR #: [id number] : 1965 The H&P has been reviewed and the patient has been examined. I concur with the findings of the H&P. There are no significant changes. It is appropriate to proceed with the planned procedure. Irwin Molina DPM 03/24/2020 6:57 AM INTERVAL HISTORY AND PHYSICAL Patient Name: Tania Venegas Admit Date: MR #: [id number] : 1965 The H&P has been reviewed [...] letter(see EMR) Reviewed cardiac history and testing -[facility] diffuse cad mod/severe disease -ECHO lvef 30-35% -Cardioversion 11/2019 -MEDICAL CLAIMS PROCESSOR favourable ECG from 01/27/2020 read independently today. [...] if needed 9. Coronary artery disease involving [place] coronary artery of [place] heart without angina pectoris Patient with history [...] Evie Candelaria DO prior to 03/[address] [facility]; LEFT ANKLE HARDWARE REMOVAL, CALCANEAL OSTEOTOMY, TALONAVICULAR [...] (54 y.o.) Date of Service: 03/24/2020 CSN: [id number] Procedure(s): LEFT ANKLE HARDWARE REMOVAL, CALCANEAL OSTEOTOMY, TALONAVICULAR REVISION FUSION, 1ST TARSOMETATARSAL FUSION, OSTEOTOMY TALUS Pre-Operative Diagnoses: * M96.0, M19.072, S93.422A Post-Operative Diagnoses: Surgeon(s) and Role: * Evie Candelaria DO - Primary * John Saravia DO - Resident - Assisting * Irwin Molina DPM - Fellow Anesthesiologist: John Paul Ricardo MD FINE UNHAIRER: Mira Tao CRNA Flight Operations Specialist: Mari Mitchell RN Scrub Person Relief: ST Celia Scrub Person: ST Lakesha Nurse Float: Araceli Shafer RN Operative findings: consistent with pre op diagnosis Intra and immediate post-operative complications: none Type of anesthesia used: Regional, General Estimated blood loss: 50 mL Estimated urine output: Refer to surgical log Specimen(s): * No specimens in log * Implant(s): Implant Name Type Inv. Item Serial No. Shuttlecock Assembler Lot No. LRB No. Used Action FILLER 10CC BONE VOID CERAMENT - [id number] FILLER 10CC BONE VOID CERAMENT BONE SUPPO [id number] Left 1 Implanted 4 screws and 2 wedges Left 6 Explanted 5 screws and 1 plate Left 1 Explanted BioActive Bone Graft Putty 7.5cc MEDLINE IN [id number] Left 1 Implanted SCREW 7 X 55 X 16MM UMESH HEADED SHORT THRD UNITE - [id number] SCREW 7 X 55 X 16MM UMESH HEADED SHORT THRD UNITE MEDLINE IN Left 2 Implanted PLATE 18MM Z BETA MOTOBAND MAX - [id number] PLATE 18MM Z BETA MOTOBAND MAX [employer]ADS [id number] Left 1 Implanted DynaForce Plate Sterile Instrument Kit CR[employer]ADS [id number] Left 1 Implanted KIT 18 X 18 X 18MM SUPERELASTIC MOTOCLIP HIMAX - [id number] KIT 18 X 18 X 18MM SUPERELASTIC MOTOCLIP HIMAX [employer]ADS [id number] Left 1 Implanted SCREW 4.5 X 50MM UMESH HEADED UNITE - [id number] SCREW 4.5 X 50MM UMESH HEADED UNITE MEDLINE IN Left 2 Implanted SCREW 3.5 X 30MM NON LOCK TI ALLOY MOTOBAND CP - [id number] SCREW 3.5 X 30MM NON LOCK TI ALLOY MOTOBAND CP [employer] [id number] Left 2 Implanted Drain(s): * No LDAs found * Wound(s): Wound 03/24/20 Surgical Wound Foot Left (Active) Irwin Molina DPM 03/24/2020 12:06 PM documented in this encounter Care Teams (unrecognized sec tion and content) Linen Manager Relationship Specialty Start Date End Date Alexander Cox MD [address] [place] [address] PCP - Referring 2 Clinical Cardiac Electrophysiology 07/19/17 Oliver Springer Jr., DO [address] [place] [address] PCP - General Internal Medicine 03/17/20 [place] [address] [place] [address] Interventional Cardiology 11/10/19 Evie Candelaria, DO [address] [place] [address] Orthopaedic Surgery 03/18/20 Linen Manager Relationship Specialty Start Date End Date Alexander Cox MD [address] [place] [address] PCP - Referring 2 Clinical Cardiac Electrophysiology 07/19/17 Oliver Springer Jr., DO [address] [place] [address] PCP - General Internal Medicine 03/17/20 [place] [address] [place] [phone] Interventional Cardiology 11/10/19 Evie Candelaria, DO [address] [place] [address] Orthopaedic Surgery 03/18/20 Linen Manager Relationship Specialty Start Date End Date Alexander Cox MD [address] [place] [address] PCP - Referring 2 Clinical Cardiac Electrophysiology 07/19/17 Oliver Springer Jr., DO [facility] [place] [address] PCP - General Internal Medicine 03/17/20 [place] [address] [place] [phone] Interventional Cardiology 11/10/19 Evie Candelaria, DO [address] [place] [address] Orthopaedic Surgery 03/18/20 Linen Manager Relationship Specialty Start Date End Date Alexander Cox MD [address] [place] [address] PCP - Referring 2 Clinical Cardiac Electrophysiology 07/19/17 Oliver Springer Jr., DO [facility] [place] [address] PCP - General Internal Medicine 03/17/20 [place] [address] [place] [phone] Interventional Cardiology 11/10/19 Evie Candelaria, DO [address] [place] [address] Orthopaedic Surgery 03/18/20 Linen Manager Relationship Specialty Start Date End Date Alexander Cox MD [address] [place] [address] PCP - Referring 2 Clinical Cardiac Electrophysiology 07/19/17 Oliver Springer Jr., DO [address] [place] [address] PCP - General Internal Medicine 03/17/20 [place] [address] [place] [address] Interventional Cardiology 11/10/19 Evie Candelaria, DO [address] [place] [address] Orthopaedic Surgery 03/18/20 Linen Manager Relationship Specialty Start Date End Date Alexander Cox MD [address] [place] [address] PCP - Referring 2 Clinical Cardiac Electrophysiology 07/19/17 Oliver Springer Jr., DO [address] [place] [address] PCP - General Internal Medicine 03/17/20 [place] [address] [place] [phone] Interventional Cardiology 11/10/19 Evie Candelaria, DO [address] [place] [address] Orthopaedic Surgery 03/18/20 Linen Manager Relationship Specialty Start Date End Date Alexander Cox MD [address] [place] [phone] PCP - Referring 2 Clinical Cardiac Electrophysiology 07/19/17 Oliver Springer Jr., DO [facility] [place], [place] [phone] PCP - General Internal Medicine 03/17/20 [place] [address] [place] [phone] Interventional Cardiology 11/10/19 Evie Candelaria, DO [address] [place] [address] Orthopaedic Surgery 03/18/20 Linen Manager Relationship Specialty Start Date End Date Alexander Cox MD [address] [place] [phone] PCP - Referring 2 Clinical Cardiac Electrophysiology 07/19/17 Oliver Springer Jr., DO [address] [place] [phone] PCP - General Internal Medicine 03/17/20 [place] [address] [place] [address] Interventional Cardiology 11/10/19 Evie Candelaria, DO [address] [place] [address] Orthopaedic Surgery 03/18/20 Linen Manager Relationship Specialty Start Date End Date Alexander Cox MD [address] [place] [phone] PCP - Referring 2 Clinical Cardiac Electrophysiology 07/19/17 Oliver Springer Jr., DO [address] [place] [phone] PCP - General Internal Medicine 03/17/20 [place] [address] [place] [phone] Interventional Cardiology 11/10/19 Evie Candelaria DO [address] [place] [address] Orthopaedic Surgery 03/18/20 Linen Manager Relationship Specialty Start Date End Date Alexander Cox MD [address] [place] [address] PCP - Referring 2 Clinical Cardiac Electrophysiology 07/19/17 Oliver Springer Jr., DO [address] [place] [address] PCP - General Internal Medicine 03/17/20 [place] [address] [place] [phone] Interventional Cardiology 11/10/19 Evie Candelaria DO [address] [place] [address] Orthopaedic Surgery 03/18/20 Linen Manager Relationship Specialty Start Date End Date Alexander Cox MD [address] [place] [address] PCP - Referring 2 Clinical Cardiac Electrophysiology 07/19/17 Oliver Springer Jr., DO [address] [place] [address] PCP - General Internal Medicine 03/17/20 [place] [address] [place] [address] Interventional Cardiology 11/10/19 Evie Candelaria DO [address] [place] [address] Orthopaedic Surgery 03/18/20 FOR RECORDS PERTAINING TO [...] BE BASED ON THE PRIMARY CLINICAL RECORDS. [employer] provides no warranty or guarantee of the accuracy or completeness of information in this document.
[2024-03-12] MEDS: ALBUTEROL SULFATE 2.5 MG/3 ML VIAL NEB IH (09:31)
== END 2024-03-12 08:55 | disposition home or self-care (01) ==
LOC: CARD 08:54
PROVIDERS: PCP Internal Medicine
DX: I49.3 Ventricular premature depolarization (principal); Z79.899 Other long term (current) drug therapy
CPT/HCPCS: 94060; 94729

== ENCOUNTER 2024-03-25 00:26 | Outpatient (RCR) | payer MEDICARE, SELFPAY | END 2024-04-24 11:25 | disposition home or self-care (01) | LOC: MM 00:26 | PROVIDERS: PCP Internal Medicine; Visit Provider Internal Medicine | DX: Z51.81 Encounter for therapeutic drug level monitoring (principal); Z79.01 Long term (current) use of anticoagulants; I48.91 Unspecified atrial fibrillation | CPT/HCPCS: 85610; G0463 ==

== ENCOUNTER 2024-04-27 00:22 | Outpatient (RCR) | payer MEDICARE, SELFPAY ==
--- NOTE | 2024-04-27 08:47 | PC.NURSE ---
Called and spoke with patient who has not been seen since his hospitalzation. Patient will be returning to cardiac rehab this Saturday, May 01, at 9 Am
== END 2024-05-22 10:02 | disposition home or self-care (01) ==
LOC: MM 00:22
PROVIDERS: PCP Internal Medicine; Visit Provider Internal Medicine
DX: Z51.81 Encounter for therapeutic drug level monitoring (principal); Z79.01 Long term (current) use of anticoagulants; I48.91 Unspecified atrial fibrillation
CPT/HCPCS: 85610; G0463

== ENCOUNTER 2024-05-22 07:05 | Outpatient (RCR) | payer MEDICARE, SELFPAY ==
--- NOTE | 2024-03-19 09:27 | CR1_ITS ---
The [facility] Test Date: 2024-03-19 Pat Name: TANIA CERVANTES Department: Room: - Gender: Male Airways Control Specialist: : 1965 Requested By: MOJGAN IBRAHIM M.D. Order Number: [id number] Reading MD: FRANCIE HENRIQUEZ Interpretive Statements Session Date: Electronically Signed On 03-20-2024 6:58:59 EDT by FRANCIE HENRIQUEZ
--- NOTE | 2024-03-23 11:30 | CR1_ITS ---
[facility] Test Date: 2024-03-23 Pat Name: TANIA CERVANTES Department: Room: - Gender: Male Web Operations Specialist: : 1965 Requested By: MOJGAN IBRAHIM M.D. Order Number: [id number] Reading MD: FRANCIE HENRIQUEZ Interpretive Statements Session Date: Electronically Signed On 03-23-2024 23:01:53 EDT by FRANCIE HENRIQUEZ
--- NOTE | 2024-04-17 08:01 | CR1_ITS ---
[facility] Test Date: 2024-04-17 Pat Name: TANIA CERVANTES Department: Room: - Gender: Male Agricultural Education Instructor: : 1965 Requested By: MOJGAN IBRAHIM M.D. Order Number: [id number] Reading MD: FRANCIE HENRIQUEZ Interpretive Statements Session Date: Electronically Signed On 04-17-2024 18:03:50 EDT by FRANCIE HENRIQUEZ
--- NOTE | 2024-06-05 11:00 | CR1_ITS ---
The [facility] Test Date: 2024-06-05 Pat Name: TANIA CERVANTES Department: Room: - Gender: Male Event Attendant: : 1965 Requested By: MOJGAN IBRAHIM M.D. Order Number: [id number] Reading MD: FRANCIE HENRIQUEZ Interpretive Statements Session Date: Electronically Signed On 06-19-2024 18:25:11 EDT by FRANCIE HENRIQUEZ
--- NOTE | 2024-07-07 10:38 | CR1_ITS ---
[facility] Test Date: 2024-07-07 Pat Name: TANIA CERVANTES Department: Room: - Gender: Male Wood Patternmaker: : 1965 Requested By: MOJGAN IBARHIM M.D. Order Number: [id number] Reading MD: FRANCIE HENRIQUEZ Interpretive Statements Session Date: Electronically Signed On 07-07-2024 21:46:25 EDT by FRANCIE HENRIQUEZ
--- NOTE | 2024-08-05 09:09 | CR1_ITS ---
The [facility] Test Date: 2024-08-05 Pat Name: TANIA CERVANTES Department: Room: - Gender: Male Music Education Director: : 1965 Requested By: MOJGAN BIRAHIM M.D. Order Number: [id number] Reading MD: FRANCIE HENRIQUEZ Interpretive Statements Session Date: Electronically Signed On 08-06-2024 6:56:51 EDT by FRANCIE HENRIQUEZ
--- NOTE | 2024-09-04 09:51 | CR1_ITS ---
The [facility] Test Date: 2024-09-04 Pat Name: TANIA CERVANTES Department: Room: - Gender: Male Travel Nurse: : 1965 Requested By: MOJGAN IBRAHIM M.D. Order Number: [id number] Reading MD: FRANCIE HENRIQUEZ Interpretive Statements Session Date: Electronically Signed On 09-04-2024 18:35:03 EDT by FRANCIE HENRIQUEZ
== END 2024-09-04 09:55 | disposition home or self-care (01) ==
LOC: CR 07:05
PROVIDERS: PCP Internal Medicine; Visit Provider Internal Medicine Interventional Cardiology
DX: I50.9 Heart failure, unspecified (principal)
CPT/HCPCS: 93798

== ENCOUNTER 2024-05-25 00:48 | Outpatient (RCR) | payer MEDICARE, SELFPAY | END 2024-06-24 09:42 | disposition home or self-care (01) | LOC: MM 00:48 | PROVIDERS: PCP Internal Medicine; Visit Provider Internal Medicine | DX: Z51.81 Encounter for therapeutic drug level monitoring (principal); Z79.01 Long term (current) use of anticoagulants; I48.91 Unspecified atrial fibrillation | CPT/HCPCS: 85610; G0463 ==

== ENCOUNTER 2024-06-25 00:31 | Outpatient (RCR) | payer MEDICARE, SELFPAY | END 2024-07-24 09:33 | disposition home or self-care (01) | LOC: MM 00:31 | PROVIDERS: PCP Internal Medicine; Visit Provider Internal Medicine | DX: Z51.81 Encounter for therapeutic drug level monitoring (principal); Z79.01 Long term (current) use of anticoagulants; I48.91 Unspecified atrial fibrillation | CPT/HCPCS: 85610; G0463 ==

== ENCOUNTER 2024-07-27 00:58 | Outpatient (RCR) | payer MEDICARE, SELFPAY | END 2024-08-24 23:36 | disposition home or self-care (01) | LOC: MM 00:58 | PROVIDERS: PCP Internal Medicine; Visit Provider Internal Medicine | DX: Z51.81 Encounter for therapeutic drug level monitoring (principal); Z79.01 Long term (current) use of anticoagulants; I48.91 Unspecified atrial fibrillation | CPT/HCPCS: 85610; G0463 ==

== ENCOUNTER 2024-08-25 01:34 | Outpatient (RCR) | payer MEDICARE, SELFPAY | END 2024-09-24 23:38 | disposition home or self-care (01) | LOC: MM 01:34 | PROVIDERS: PCP Internal Medicine; Visit Provider Internal Medicine | DX: Z51.81 Encounter for therapeutic drug level monitoring (principal); Z79.01 Long term (current) use of anticoagulants; I48.91 Unspecified atrial fibrillation | CPT/HCPCS: 85610; G0463 ==

== ENCOUNTER 2024-09-25 11:18 | Outpatient (RCR) | payer MEDICARE, SELFPAY | END 2024-10-24 23:59 | disposition home or self-care (01) | LOC: MM 11:18 | PROVIDERS: PCP Internal Medicine; Visit Provider Internal Medicine | DX: Z51.81 Encounter for therapeutic drug level monitoring (principal); Z79.01 Long term (current) use of anticoagulants; I48.91 Unspecified atrial fibrillation | CPT/HCPCS: 85610; G0463 ==

== ENCOUNTER 2024-10-18 11:58 | Emergency (ER) | payer MEDICARE, SELFPAY ==
[2024-10-18] VITALS (22 sets, daily range): BP systolic 101–125; BP diastolic 62–94; PULSE 62–103; TEMP 36.9; O2SAT 95–98; BMI 33.6
--- OUTSIDE RECORDS SUMMARY | 2024-10-18 12:06 | XMS_ITS | CCD ---
Author Organization [facility] Care Team Providers Care Marketing Programs Manager Name Role Phone [place] PARHAM Referring Unavailable OLIVER SPRINGER Primary Care Unavailable POCJUS, [place] DAIGLE Referring Unavailable OLIVER SPRINGER Primary Care Unavailable POCJUS, [place] DAIGLE Referring Unavailable OLIVER SPRINGER Primary Care Unavailable Oliver Springer Primary Care Provider EVIE CANDELARIA Admitting EVIE Edwards Attending EVIE Edwards Admitting UnaEVIE Ybarra Referring OLIVER Ford Primary Care Unavailable JACE ZHAO Attending Unavailable UNKNOWN, PROVIDER Admitting Unavailable UNKNOWN, PROVIDER Attending Unavailable OLIVER SPRINGER Referring Unavailable OLIVER SPRINGER Primary Care Unavailable Oliver Springer DO Primary Care Provider [phone] Alexander Cox MD Unavailable Mojgan Zelaya MD Unavailable Gian Moran DO, Charles L Primary Care Provider Evie Candelaria DO Unavailable Alexander Cox MD Unavailable Mojgan Zelaya MD Unavailable Gian Moran DO, Charles L Primary Care Provider Evie Candelaria DO Unavailable [phone] SHAIKH Dereck GARCÍA Attending Unavailable SHAIKH Dereck GARCÍA Admitting Unavailable DR OLIVER SPRINGER Primary Care Unavailable FAWWAD, NOWAK H Attending Unavailable FAWWAD, NOWAK H Admitting Unavailable VALONE, DR GROVE Primary Care Unavailable FAWWAD, NOWAK H Attending Unavailable FAWWAD, NOWKA H Admitting Unavailable VALONE, DR GROVE Primary [...] Unavailable VALONE, DR GROVE Primary Care Unavailable Alexander Cox MD Unavailable Mojgan Zelaya MD Unavailable Gian Moran DO, Charles L Primary Care Provider Evie Candelaria DO Unavailable [phone] MITALI ALEGRIA Attending Unavailable LOLA, ROB Referring Unavailable LOLA, ROB Referring Unavailable LOLA, ROB Referring Unavailable LOLA, ROB Referring Unavailable LOLA, ROB Referring Unavailable MOJGAN ZELAYA Attending Unavailable AGUSTÍN YU Referring Unavailable KELLY ELLISON Attending Unavailable Evie Candelaria DO Unavailable [phone] VANGIE CRUZ Referring Unavailable VALONE ., OLIVER Gomes Primary Care Unavailabl e ALEXANDER COX Referring Unavailable PRINCE FALK Attending Unavailable GIAN MORAN, OLIVER Gomes Primary Care Unavailabl e PRINCE FALK Attending Unavailable SELF, SELF Referring Unavailable VALTANGELA MORAN, OLIVER Gomes Primary Care Unavailabl e VANGIE CRUZ Referring Unavailable VALONE JR., OLIVER Gomes Primary Care Unavailabl e TANIA ZHANG Admitting Unavailable CONSULT, CARDIOLOGY - HEART FAILURE Consulting Unavailable ALEXANDER COX Referring Unavailable NABOR GORDON Attending Unavailable GIAN MORAN, OLIVER Gomes Primary Care Unavailabl e HEIDINABOR R Referring Unavailable CHARISMA HURTADO Attending Unavailable GIAN MORAN, OLIVER Gomes Primary Care Unavailabl e GEETHATESSY Gomes Admitting Unavailable TESSY CONN Attending Unavailable SELF, SELF Referring Unavailable GIAN MORAN, OLIVER Gomes Primary Care Unavailabl e DERRICK NUNEZ Attending Unavailable GIAN MORAN, OLIVER Gomes Referring Unavailabl e VALONE JR., OLIVER Gomes Primary Care Unavailabl e DERRICK NUNEZ Attending Unavailable DERRICK NUNEZ Referring Unavailable GIAN GEORGE., OLIVER Gomes Primary Care Unavailabl e JORDANA COOLEY Attending Unavailable JORDANA COOLEY Referring Unavailable VALONE JRRocael, OLIVER Gomes Primary Care Unavailabl e VANGIE CRUZ Referring Unavailable VALONE JR., OLIVER Gomes Primary Care Unavailabl e ALEXANDER COX Referring Unavailable DERRICK NUNEZ Attending Unavailable GIAN MORAN, OLIVER Gomes Primary Care Unavailabl e ALEXANDER COX Attending Unavailable GIAN MORAN, OLIVER Gomes Referring Unavailabl e VALONE JR., OLIVER Gomes Primary Care Unavailabl e ALEXANDER COX Referring Unavailable VALONE JR., OLIVER Gomes Primary Care Unavailabl e VANGIE CRUZ Referring Unavailable VALONE JR., OLIVER Gomes Primary Care Unavailabl e STEVE RITCHIE Attending Unavailable GIAN JR., OLIVER Gomes Referring Unavailabl e VALONE JR., OLIVER Gomes Primary Care Unavailabl e ALEXANDER COX Attending Unavailable VALONE JR., OLIVER Gomes Referring Unavailabl e VALONE JR., OLIVER Gomes Primary Care Unavailabl e BROOKEALEXANDER Attending Unavailable ALEXANDER COX Referring Unavailable VALONE JR., OLIVER Gomes Primary Care Unavailabl e D'GRANTPRINCE AMADOR Attending Unavailable VALONE JR., OLIVER Gomes Referring Unavailabl e VALONE JR., OLIVER Gomes Primary Care Unavailabl e BROOKE, ALEXANDER Weinberg Admitting Unavailable ALEXANDER COX Attending Unavailable VALONE JR., OLIVER Kristin Primary Care Unavailabl e BROOKEALEXANDER Referring Unavailable CONSULT, ANESTHESIA PAIN MED Consulting Sujata vailable Lenard'PRINCE GRANT Admitting Unavailable PRINCE FALK Attending Unavailable VALONE JR., OLIVER Gomes Primary Care Unavailabl e MAI IZAGUIRRE Attending Unavailable VALONE JR., OLIVER Gomes Referring Unavailabl e VALONE JR., OLIVER Gomes Primary Care Unavailabl e D'GRANTPRINCE AMADOR Attending Unavailable PRINCE FALK Referring Unavailable VALONE JR., OLIVER Gomes Primary Care Unavailabl e VANGIE CRUZ Referring Unavailable VALONE JR., OLIVER Gomes Primary Care Unavailabl e PETE MARMOLEJO Attending Unavailable AJIT HURTADO Referring Unavailable VALONE JR., OLIVER Gomes Primary Care Unavailabl e PETE MARMOLEJO Attending Unavailable ADRIELONE JR., OLIVER Gomes Referring Unavailabl e VALONE JR., OLIVER Gomes Primary Care Unavailabl e PETE MARMOLEJO Attending Unavailable AJIT HURTADO Referring Unavailable VALONE JR., OLIVER Gomes Primary Care Unavailabl e AJIT HURTADO Attending Unavailable GIAN GEORGE., OLIVER Gomes Referring Unavailabl e VALONE JR., OLIVER Gomes Primary Care Unavailabl e VANGIE CRUZ Referring Unavailable VALONE JR., OLIVER Gomes Primary Care Unavailabl e AUTUMN GROSSMAN Attending Unavailable VALONE JR., OLIVER Gomes Referring Unavailabl e VALONE JR., OLIVER Kristin Primary Care Unavailabl e AUTUMN GROSSMAN Attending Unavailable VALONE JR., OLIVER Gomes Referring Unavailabl e VALONE JR., OLIVER Gomes Primary Care Unavailabl e JORDANA COOLEY Attending Unavailable VANGIE CRUZ Referring Unavailable VALONE JR., OLIVER Kristin Primary Care Unavailabl e CONSULT, CARDIOLOGY - EP Consulting Unavail able AJIT HURTADO Referring Unavailable SARA ROMERO Attending Unavailable EMMY MOURA Admitting Unavailable VALONE JR., OLIVER Gomes Primary Care Unavailabl e Allergies Allergy Classification Reported Allergen(s) Allergy Type Date of Onset Reaction(s) Facility (20 sources) *Seasonal Propensity to adverse reactions to substance 05-09-2017 [facility] Medications Current Medications Medication Drug Class(es) Dates Sig (Normalized) Sig (Original) acetaminophen 325 mg / oxyCODONE hydrochloride 5 mg oral tablet (2 sources) Opioid Agonist Start: 03-24-2020 End: 03-31-2020 take 1 tablet by mouth once as needed for pain, then take 2 tablets by mouth every four hours as needed for pain, then take 7 tablets by mouth as needed for pain oxyCODONE-acetamin ophen (PERCOCET) 5-325 mg per tablet Indications: Ankle arthritis Take 1 (one) tablet to 2 (two) tablets by mouth every 4 (four) hours as needed for pain (Days supply per fill: 7) . 28 tablet 0 03/24/2020 03/31/2020 Active amiodarone hydrochloride 100 mg oral tablet (20 sources) Antiarrhythmic Start: 09-30-2024 take 1 tablet by mouth once daily AMIOdarone 100 MG tablet Indications: PVC's (premature ventricular contractions) Take 1 tablet by mouth daily. 30 tablet 3 09/30/2024 Active Start: 07-13-2024 End: 09-30-2024 take 1 tablet by mouth once daily AMIOdarone 200 MG tablet Indications: PVC's (premature ventricular contractions) Take 1 tablet by mouth daily. 90 tablet 1 07/13/2024 09/30/2024 Discontinued Start: 05-25-2024 End: 05-26-2024 take 200 mg by mouth once daily 200 mg, Oral, DAILY, First dose on Sat05/25/24 at 1400, Until Discontinued, Post-op/Post-Proc Start: 04-18-2024 End: 06-12-2024 take 2 tablets by mouth three times daily, then take 2 tablets by mouth once daily, then take 1 tablet by mouth once daily AMIOdarone 200 MG tablet Take two tablets by mouth three times daily through 04/17. THEN, take two tablets daily through 05/17. THEN, take one tablet daily thereafter. 90 tablet 3 04/18/2024 06/12/2024 Discontinued (Medication Reconciliation (suppress cancel msg)) Start: 04-18-2024 End: 04-13-2024 take 2 tablets by mouth three times daily, then take 2 tablets by mouth once daily, then take 1 tablet by mouth once daily AMIOdarone 200 MG tablet Take two tablets by mouth three times daily through 04/17. THEN, take two tablets daily through 05/17. THEN, take one tablet daily thereafter. 90 tablet 3 04/18/2024 04/13/2024 Discontinued Start: 04-18-2024 take 2 tablets by mo [facility] three times daily, then take 2 tablets by mouth once daily, then take 1 tablet by mouth once daily AMIOdarone 200 MG tablet Take two tablets by mouth three times daily through 04/17. THEN, take two tablets daily through 05/17. THEN, take one tablet daily thereafter. 90 tablet 3 04/18/2024 Active Start: 04-18-2024 End: 04-13-2024 take 200 mg by mouth once daily 200 mg, Oral, DAILY, First dose on Sat04/18/24 at 0900, Until Discontinued Start: 04-10-2024 End: 04-13-2024 400 mg, Oral, 3 TIMES DAILY, 21 doses, First dose on Sat04/10/24 at 1130, Last dose on Sat04/17/24 at 0900 Start: 04-09-2024 End: 04-10-2024 1 mg/min (33.3333 mL/hr, rou nded to 33.3 mL/hr), Intravenous, CONTINUOUS, Starting on Yvonne 04/09/24 at 1845, Until Sat04/10/24 at 2100, Filtration Required. Extravasation Risk Start: 11-21-2023 End: 04-13-2024 take 0.5 tablet by mouth once daily AMIOdarone 200 MG tablet Indications: PVC's (premature ventricular contractions) Take 0.5 tablets by mouth daily. 45 tablet 1 11/21/2023 04/13/2024 Discontinued (Stop Taking at Discharge) Start: 06-03-2023 take 0.5 tablet by [facility] once daily AMIOdarone 200 MG tablet Indications: PVC's (premature ventricular contractions) Take 0.5 tablets by mouth daily. 45 tablet 1 06/03/2023 Active Start: 05-02-2022 [facility] AMIOdarone 200 MG tablet Indications: PVC's (premature ventricular contractions) Take 1 tablet by mouth daily. 90 tablet 1 11/22/2022 Active 24 hr buPROPion hydrochloride 300 mg extended release oral tablet (1 source) Aminoketone take 1 tablet by mouth once daily in the morning buPROPion (WELLBUTRIN XL) 300 MG 24 hr tablet Indications: anxiety with depression Take 300 mg by mouth every morning Reasons: anxiousness associated with depression. 0 Active celecoxib 200 mg oral capsule (1 source) Nonsteroidal Anti-inflammatory Drug Start: End: take 1 capsule by mouth twice daily celecoxib (CELEBREX) 200 MG capsule Take 1 (one) capsule (200 mg total) by mouth 2 (two) times a day for 7 days . 14 capsule 0 03/24/2020 03/31/2020 Active cephalexin 500 mg oral capsule (1 source) Cephalosporin Antibacterial Start: End: take 1 capsule by mouth four times daily cephALEXin (Keflex) 500 MG capsule Take 1 (one) capsule (500 mg total) by mouth 4 (four) times a day for 7 days . 28 capsule 0 03/24/2020 03/31/2020 Active 0.8 ml enoxaparin sodium 150 mg/ml prefilled syringe (5 sources) Low Molecular Weight Heparin Start: End: inject 0.7 mL by subcutaneous injection every twelve hours Enoxaparin Sodium 120 MG/0.8ML Solution Prefilled Syringe injection Indications: Atrial Fibrillation Inject 0.7 mL under the skin every 12 hours for 7 days. 11.2 mL 09/26/2024 10/03/2024 Active Start: 05-26-2024 End: 05-26-2024 inject 40 mg by subcutaneous injection every twenty-four hours 40 mg, Subcutaneous, EVERY 24 HOURS, First dose on Sat05/26/24 at 0900, Until Discontinued, For SUBCUTANEOUS route ONLY: alternate injection sites between left and right abdominal wall, pinching location and avoiding area around navel. If unable to use abdominal sites, may use the front or side of thighs., Indications: DVT/PE prophylaxis, Post-op/Post-Proc Start: 03-24-2020 End: 03-24-2020 inject 0.4 mL by subcutaneous injection once daily enoxaparin (Lovenox) 40 mg/0.4 mL Syrg Inject 0.4 mL (40 mg total) under the skin daily . 30 Syringe 0 03/24/2020 03/24/2020 Discontinued (Stop Taking at Discharge) fluvoxaMINE maleate 25 mg oral tablet (1 source) Serotonin Reuptake Inhibitor Start: 07-24-2022 take 1 tablet by mouth twice daily fluvoxamine 25 MG tablet Take 25 mg by mouth 2 times daily. 0 07/24/2022 Active furosemide 40 mg oral tablet (20 sources) Loop Diuretic Start: 09-23-2024 End: 09-26-2024 40 mg, Intravenous, 2 TIMES DAILY BEFORE MEALS, First dose on Sat09/23/24 at 1600, Until Discontinued, Administer by slow IV push at a rate not exceeding 40mg/min Start: 09-23-2024 End: 09-23-2024 40 mg, Intravenous, ONCE, 1 dose, On Sat09/23/24 at 1000, Administer by slow IV push at a rate not exceeding 40mg/min Start: 09-22-2024 End: 09-22-2024 40 mg, Intravenous, ONCE, 1 dose, On Sat09/22/24 at 2000, Administer by slow IV push at a rate not exceeding 40mg/min Start: 05-26-2024 End: 05-26-2024 20 mg, Intravenous, ONCE, 1 dose, On Sat05/26/24 at 0845, Administer by slow IV push at a rate not exceeding 40mg/min Start: 09-04-2023 End: 11-25-2024 take 1 tablet by mouth once daily furOSEmide 40 MG tablet Take 1 tablet by mouth daily. 30 tablet 1 09/26/2024 11/25/2024 Active lidocaine 0.04 mg/mg medicated patch (6 sources) Antiarrhythmic, Amide Local Anesthetic Start: 06-04-2024 End: 06-18-2024 lidocaine ( Lidocaine Patch) 4 % patch Place 2 patches on skin every 24 hours for 14 days. One patch on each side of chest, Max of 12 hours of application then remove. 28 patch 06/04/2024 06/18/2024 Active Start: 03-24-2020 End: 03-24-2020 5 mL, Other, Once, [facility] at 0715, For 1 dose, Pre- Procedure [] for anesthesia block administration 12 hr ranolazine 500 mg extended release oral tablet (3 sources) Anti-anginal Start: 05-02-2022 take 1 tablet by mouth twice daily Ranolazine 500 MG Tab SR 12 HR tablet Take 1 tablet by mouth 2 times daily. 180 tablet 1 05/02/2022 Active Slow Magnesium/Calcium 70-[address] (20 sources) Start: 02-27-2024 take 1 tablet by mouth once daily Slow Magnesium/Calcium 70-[address] Take 1 tablet by mouth daily. 02/27/2024 Active Start: 02-27-2024 take 1 tablet by petros th once daily Slow Magnesium/Calcium 70-[address] Take 1 tablet by mouth daily. 02/27/2024 Suspended spironolactone 25 mg oral tablet (1 source) Aldosterone Antagonist take 1 tablet by mouth once daily in the morning spironolactone (ALDACTONE) 25 MG tablet Indications: edema Take 25 mg by mouth every morning Reasons: visible water retention. 0 Active warfarin sodium 2.5 mg oral tablet (20 sources) Vitamin K Antagonist Start: 09-29-20 End: 09-26-20 take 1 tablet by mouth once daily 2.5 mg, Oral, CUSTOM FREQUENCY (Once per day on Saturday), First dose (after last reorder) on Sat09/29/24 at 1800, Until Discontinued, Swallow tablet whole; do not crush, split or chew. Contact pharmacy if alternate route or dose is needed. Start: 09-29-2024 warfarin 2.5 M G tablet Take 1 tablet by mouth. 09/29/2024 Active Start: 09-29-2024 warfarin 2.5 M G tablet Take 1 tablet by mouth. 09/29/2024 Active Start: 09-27-2024 End: 09-26-2024 5 mg, Oral, CUSTOM FREQUENCY (Once per day on Saturday), First dose (after last reorder) on Sat09/27/24 at 1800, Until Discontinued, ALTERNATE BETWEEN 2.5 MG AND 5 MG EACH DAY. Swallow tablet whole; do not crush, split or chew. Contact pharmacy if alternate route or dose is needed. Start: 09-27-2024 warfarin 5 MG tablet Take 1 tablet by mouth. 09/27/2024 Active Start: 05-27-2024 End: 09-26-2024 5 mg, Oral, CUSTOM FREQUENCY (Once per day on Saturday), First dose on Sat09/23/24 at 1800, Until Discontinued, ALTERNATE BETWEEN 2.5 MG AND 5 MG EACH DAY. Swallow tablet whole; do not crush, split or chew. Contact pharmacy if alternate route or dose is needed. Start: 04-13-2024 End: 04-13-2024 take 1 tablet by mouth once 5 mg, Oral, EVERY M, W & F , First dose on Sat04/13/24 at 1800, Until Discontinued, Swallow tablet whole; do not crush, split or chew. Contact pharmacy if alternate route or dose is needed., On hold since Sat04/12/2024 at 1006 until manually unheld Start: 04-10-2024 End: 04-13-2024 take 1 tablet by mouth once daily 7.5 mg, Oral, DAILY EARLY EVENING, First dose (after last modification) on Sat04/12/24 at 1800, Until Discontinued, Swallow tablet whole; do not crush, split or chew. Contact pharmacy if alternate route or dose is needed. Start: 03-25-2020 End: 05-26-2024 take 1 tablet by mouth once daily [...] Sig (Original) acetaminophen 325 mg oral tablet (20 sources) Start: 09-30-2024 End: 09-30-2024 take 1 tablet by mouth every six hours as needed 650 mg, Oral, EVERY 6 HOURS NEEDED, Starting on Sat09/30/24 at 1354, Until Sat09/30/24 at 1929, Mild Pain, Maximum dose of acetaminophen is 4000 mg from all sources in 24 hours., Post-op/Post-Proc Start: 09-22-2024 End: 09-26-2024 take 1 tablet by mouth every six hours as needed 325 mg, Oral, EVERY 6 HOURS NEEDED, Starting on Tu09/22/24 at 1516, Until 09/26/24 at 1237, Mild Pain, Maximum dose of acetaminophen is 4000 mg from all sources in 24 hours. Start: 05-25-2024 End: 05-26-2024 take 1 tablet by mouth every six hours 650 mg, Oral, EVERY 6 HOURS NON-STANDARD, First dose on Sat05/25/24 at 1400, Until Discontinued, Maximum dose of acetaminophen is 4000 mg from all sources in 24 hours., Post-op/Post-Proc Start: 04-13-2024 take 2 tablets by mo uth every four hours as needed Acetaminophen 325 MG tablet Take 2 tablets by mouth every 4 hours as needed. 04/13/2024 Active Start: 04-09-2024 End: 04-13-2024 take 1 tablet by mouth every four hours as needed 650 mg, Oral, EVERY 4 HOURS NEEDED, Starting on Yvonne 04/09/24 at 1627, Until Sat04/13/24 at 1633, Mild Pain, Oral temp > 101.5 F, Headaches, Maximum dose of acetaminophen is 4000 mg from all sources in 24 hours. take 2 tablets by mo uth every six hours as needed acetaminophen (TYLENOL) 325 MG tablet Take 650 mg by mouth every 6 (six) hours as needed for pain . 0 Active albuterol 0.833 mg/ml / ipratropium bromide 0.167 mg/ml inhalation solution (2 sources) Anticholinergic, beta2-Adrenergic Agonist Start: 05-25-2024 End: 05-26-2024 take 3 mL by inhalation every six hours as needed 3 mL, Nebulization, EVERY 6 HOURS NEEDED, Starting on Sat05/26/24 at 0900, Until Sat05/26/24 at 1419, Shortness of Breath, Wheezing, Post-op/Post-Proc aluminum hydroxide 40 mg/ml / magnesium hydroxide 40 mg/ml / simethicone 4 mg/ml oral suspension (1 source) Start: 09-22-2024 End: 09-26-2024 take 30 mL by mouth every six hours as needed amiodarone (CORDARONE) 150 mg in Dextrose 5%, with overfill 113 mL (total volume) IVPB (1 source) Start: 04-09-2024 End: 04-09-2024 150 mg, Intravenous, Administer over 10 Minutes, ONCE, 1 dose, On Yvonne 04/09/24 at 1830, Extravasation Risk. Filtration Required. amoxicillin 500 mg oral capsule (1 source) Penicillin-class Antibacterial End: 09-26-2024 take 4 capsules by mouth every hour Amoxicillin 500 MG capsule Take 4 capsules by mouth. 1 hour prior to dental appointments 09/26/2024 Discontinued (Stop Taking at Discharge) apixaban 5 mg oral tablet (1 source) Factor Xa Inhibitor Start: 09-26-2024 End: 09-26-2024 take 1 tablet by mouth every twelve hours apixaban 5 MG tablet Indications: Nonsustained ventricular tachycardia , NSVT (nonsustained ventricular tachycardia) Take 1 tablet by mouth every 12 hours. 60 tablet 5 09/26/2024 09/26/2024 Discontinued (Stop Taking at Discharge) aspirin 81 mg chewable tablet (20 sources) Platelet Aggregation Inhibitor, Nonsteroidal Anti-inflammatory Drug Start: 04-10-2024 End: 04-10-2024 take 1 dose by mouth once 324 mg, Oral, ONCE, 1 dose, On Sat04/10/24 at 0745 Start: 01-19-2021 End: 09-26-2024 take 81 mg by mouth once daily in the morning 81 mg, Oral, DAILY EVERY MORNING, First dose on Sat09/25/24 at 1300, Until Discontinued, Post-op/Post-Proc bisacodyl 10 mg rectal suppository (1 source) Stimulant Laxative Start: 05-25-2024 End: 05-26-2024 take 10 mg rectal route once daily as needed for constipation 10 mg, Rectal, DAILY NEEDED, Starting on Sat05/25/24 at 1411, Until Sat05/26/24 at 1419, Constipation 1st Line calcium chloride 0.0014 meq/ml / potassium chloride 0.004 meq/ml / sodium chloride 0.103 meq/ml / sodium lactate 0.028 meq/ml injectable solution (1 source) Start: 03-24-2020 End: 03-24-2020 lactated Ringers infusion ceFAZolin (ANCEF) 1 g in sodium chloride 0.9% (MB PLUS) 100 mL (total volume) IVPB (1 source) Start: 05-25-2024 End: 05-25-2024 take 1 g intravenously every eight hours 1 g, Intravenous, Administer over 15 Minutes, EVERY 8 HOURS NON-STANDARD, 2 doses, First dose on Sat05/25/24 at 1530, Last dose on Sat05/25/24 at 2330, Post-op/Post-Proc dapagliflozin 10 mg oral tablet (4 sources) Sodium-Glucose Cotransporter 2 Inhibitor Start: 04-13-2024 End: 04-13-2024 take 1 tablet by mouth once daily dapagliflozin (Farxiga) 10 MG tablet Take 1 tablet by mouth daily. 30 tablet 3 04/13/2024 04/13/2024 Discontinued (Stop Taking at Discharge) Start: 05-02-2022 End: 08-30-2022 take 1 tablet by mouth once daily dapagliflozin 5 MG tablet Take 1 tablet by mouth daily. 90 tablet 1 05/02/2022 08/30/2022 Discontinued docusate sodium 100 mg oral capsule (20 sources) Start: 05-25-2024 End: 09-26-2024 take 100 mg by mouth twice daily as needed for constipation 100 mg, Oral, 2 TIMES DAILY NEEDED, Starting on Sat09/22/24 at 1515, Until 09/26/24 at 1237, Constipation 1st Line, Hold if diarrhea. Enoxaparin Sodium (LOVENOX) injection 100 mg (1 source) Start: 09-26-2024 End: 09-26-2024 Enoxaparin Sodium (LOVENOX) injection 100 mg eplerenone 25 mg oral tablet (20 sources) Aldosterone Antagonist Start: 08-30-2022 End: 09-26-2024 take 25 mg by mouth once daily 25 mg, Oral, DAILY, First dose on 09/26/24 at 0900, Until Discontinued Start: 05-02-2022 End: 08-30-2022 take 0.5 tablet by mouth once daily eplerenone 25 MG tablet Take 0.5 tablets by mouth daily. 45 tablet 1 05/02/2022 08/30/2022 Discontinued 20 ml fentaNYL 0.05 mg/ml injection (2 [...] 1 if sedation inadequate to perform block. Gadobutrol (GADAVIST) 1 MMOL/ML injection 1-30 mL (1 source) Start: 04-13-2024 End: 04-13-2024 1-30 mL, Intravenous, ONCE, 1 dose, On 04/13/24 at 1145, Extravasation Risk 500 ml glucose 50 mg/ml / potassium chloride 0.02 meq/ml / sodium chloride 4.5 mg/ml injection (1 source) Start: 05-25-2024 End: 05-26-2024 Intravenous, at 75 mL/hr, CONTINUOUS, Starting on Sat05/25/24 at 1400, Until Sat05/26/24 at 0600, May convert to saline well when patient is tolerating oral diet., Post-op/Post-Proc 1 ml HYDROmorphone hydrochloride 1 mg/ml cartridge (5 sources) Opioid Agonist Start: 09-25-2024 End: 09-26-2024 0.5 mg, Intravenous, EVERY 10 MINUTES NEEDED, 8 doses, Starting on 09/25/24 at 0855, Until 09/26/24 at 1237, Moderate Pain, Severe Pain, May give a total of 4mg in PACU., Recovery Start: 05-25-2024 End: 05-26-2024 take 0.5 mg intravenously every three hours as needed 0.5 mg, Intravenous, EVERY 3 HOURS NEEDED, Starting on Sat05/25/24 at 1928, Until Sat05/26/24 at 1419, Other, breakthrough pain Start: 05-25-2024 End: 05-25-2024 0.5 mg, Intravenous, EVERY 1 0 MINUTES NEEDED, 8 doses, Starting on Sat05/25/24 at 0831, Until Sat05/25/24 at 1345, Moderate Pain, Severe Pain, May give a total of 4mg in PACU., Recovery Start: 03-24-2020 End: 03-24-2020 0.5 mg, Intravenous, Every 1 0 min PRN, moderate to severe pain, Starting Yvonne 03/24/20 at 1204, For 6 doses, PACU (only) [] Give if fentanyl not effective or not ordered. [] Do not give more than 3 mg total. iohexol (OMNIPAQUE) 350 MG/ML injection 1-171 mL (1 source) Start: 06-12-2024 End: 06-12-2024 1-171 mL, Intravenous, ONCE, 1 dose, On Sat06/12/24 at 0800, Extravasation Risk, CT Procedure ipratropium bromide 0.042 mg/actuat metered dose nasal spray (1 source) Anticholinergic End: 09-23-2024 Ipratropium 0.06 % Solution 2 sprays by Nasal route 3 times daily. 09/23/2024 Discontinued (Medication Reconciliation (suppress cancel msg)) 1 ml ketorolac tromethamine 15 mg/ml cartridge (1 source) Nonsteroidal Anti-inflammatory Drug, Cyclooxygenase Inhibitor Start: 05-25-2024 End: 05-26-2024 take 15 mg intravenously every six hours as needed 15 mg, Intravenous, EVERY 6 HOURS NEEDED, Starting on Sat05/25/24 at 1140, Until Sat05/26/24 at 0854, Moderate Pain, AVOID if CrCl 1.5, or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 Type: Primary prevention Temporary Pacemaker: No As of 09/30/2024 Status: Implanted Lead Securement: 3 set screws torqued Mode: DDDR Lower Rate: 60 Upper Rate: 130 VT Detect: 160 Fast VT Detect: 200 Lead Lead-07/10/2016 - Old device in place and useable Model/Cat number: [id number] QUARTET Serial number: [id number] General Claims Agent: ROSENBERG ST ANTONY Date Implanted: 07/10/2016 As of 09/30/2024 Status: Old device in place and useable Lead-07/10/2016 - Old device in place and useable Model/Cat number: [id number] TENDRIL STS Serial number: [id number] General Claims Agent: ROSENBERG ST ANTONY Date Implanted: 07/10/2016 As of 09/30/2024 Status: Old device in place and useable Lead-07/10/2016 - Old device in place and useable Model/Cat number: [id number] NAHID Serial number: [id number] General Claims Agent: ROSENBERG ST ANTONY Date Implanted: 07/10/2016 As of 09/30/2024 Status: Old device in place and useable Measurements BSA: 2.39 m2 Complications Complications documented before study signed (10/08/2024 8:03 PM) No complications were associated with this study. Documented by Juan Luis Omalley MD - 09/30/2024 1:53 PM Sedation Time Moderate sedation was performed on the patient. Patient was monitored by independent personnel for the duration of the procedure under the direct supervision of the physician for a total time of approximately 34 minutes. Please refer to the procedure log for information on me (more content not included)... Normal [facility] CBC AND ELECTRONIC DIFFon Basophils (Bld) [#/Vol] K/uL 0.00 - 0.09 K/uL [facility] Basophils/100 WBC (Bld) 0.4 % [facility] Differential cell count method Nom (Bld) Electronic Differential O [facility] Eosinophils (Bld) [#/Vol] 0.12 10*3/uL 0.00 - 0.48 K/uL [facility] Eosinophils/100 WBC (Bld) 1.6 % [facility] Erythrocyte distribution width (RBC) [Ratio] 15.3 % High 10.9 - 14.3 % [facility] Hematocrit (Bld) [Volume fraction] 35.5 % Low 39.6 - 48.8 % [facility] Hemoglobin (Bld) [Mass/Vol] 11.6 g/dL Low 13.4 - 16.8 g/dL [facility] Immature granulocytes (Bld) [#/Vol] K/uL NINF - 0.07 K/uL [facility] Immature granulocytes/100 WBC (Bld) 0.4 % [facility] Interpretation and review of laboratory results Abnormal [facility] Lymphocytes (Bld) [#/Vol] 1.49 10*3/uL 0.83 - 3.57 K/uL [facility] Lymphocytes/100 WBC (Bld) 20.1 % [facility] MCH (RBC) [Entitic mass] 30.8 pg 26.1 - 33.3 pg [facility] MCHC (RBC) [Mass/Vol] 32.7 g/dL 31.9 - 36.5 g/dL [facility] MCV (RBC) [Entitic vol] 94.2 fL 79.0 - 94.5 fL [facility] Monocytes (Bld) [#/Vol] 0.71 10*3/uL 0.24 - 0.93 K/uL [facility] Monocytes/100 WBC (Bld) 9.6 % [facility] Neutrophils (Bld) [#/Vol] 5.03 10*3/uL 1.57 - 6.19 K/uL [facility] Nucleated RBC/100 WBC (Bld) [Ratio] 0.0 % [facility] Platelet mean volume (Bld) [Entitic vol] 9.8 fL 8.7 - 12.3 fL [facility] Platelets (Bld) [#/Vol] 208 10*3/uL 146 - 337 K/uL [facility] RBC (Bld) [#/Vol] 3.77 10*6/uL Low [facility] Segmented neutrophils/100 WBC (Bld) 67.9 % [facility] WBC (Bld) [#/Vol] 7.41 10*3/uL 3.73 - 10. 10 K/uL [facility] Abs Baso Auto < Normal 0.00-0.09 [facility] Comment on above: Performed By: #### P TPTT #### [facility] (DEFAULT) [address] [place] [address] Basophils/100 WBC (Bld) 0.4 % Normal [facility] Comment on above: Performed By: #### P TPTT #### [facility] (DEFAULT) [address] [place] [phone] DIFF STATUS Electronic Differential Normal [facility] Comment on above: Performed By: #### P TPTT #### [facility] (DEFAULT) [address] [place] [phone] Eosinophils (Bld) [#/Vol] 0.12 10*3/uL Normal 0.00-0.48 [facility] Comment on above: Performed By: #### P TPTT #### [facility] (DEFAULT) [address] [place] [address] 70672 Eosinophils/100 WBC (Bld) 1.6 % Normal [facility] Comment on above: Performed By: #### P TPTT #### [facility] (DEFAULT) [address] [place] [address]506 Hematocrit (Bld) [Volume fraction] 35.5 % Low 39.6-48.8 [facility] Comment on above: Performed By: #### P TPTT #### [facility] (DEFAULT) [address] [place] [address] 96911 Hemoglobin (Bld) [Mass/Vol] 11.6 g/dL Low 13.4-16.8 [facility] Comment on above: Performed By: #### P TPTT #### [facility] (DEFAULT) [address] [place] [address] 79883 Immature Grans % 0.4 % Normal [facility] Comment on above: Performed By: #### P TPTT #### [facility] (DEFAULT) [address] [place] [address] Immature Grans Absolute < Normal <=0.07 [facility] Comment on above: Performed By: #### P TPTT #### [facility] (DEFAULT) [address] [place] [address] 35770 Lymphocytes (Bld) [#/Vol] 1.49 10*3/uL Normal 0.83-3.57 [facility] Comment on above: Performed By: #### P TPTT #### [facility] (DEFAULT) [address] [place] [address] 84672 Lymphocytes/100 WBC (Bld) 20.1 % Normal [facility] Comment on above: Performed By: #### P TPTT #### [facility] (DEFAULT) [address] [place] [address] 64383 MCV (RBC) [Entitic vol] 94.2 fL Normal 79.0-94.5 [facility] Comment on above: Performed By: #### P TPTT #### [facility] (DEFAULT) [address] [address] Mean Cell Hgb 30.8 pg Normal 26.1-33.3 [facility] Comment on above: Performed By: #### P TPTT #### [facility] (DEFAULT) [address] [place] [address] 52235 Mean Cell Hgb Conc 32.7 g/dL Normal 31.9-36.5 [facility] Comment on above: Performed By: #### P TPTT #### [facility] (DEFAULT) [address] [place] [address] 77843 Monocytes (Bld) [#/Vol] 0.71 10*3/uL Normal 0.24-0.93 [facility] Comment on above: Performed By: #### P TPTT #### [facility] (DEFAULT) [address] [address] Monocytes/100 WBC (Bld) 9.6 % Normal [facility] Comment on above: Performed By: #### P TPTT #### [facility] (DEFAULT) [address] [address] Nucleated RBC 0.0 /100 WBC Normal <=0.2 [facility] Comment on above: Performed By: #### P TPTT #### [facility] (DEFAULT) [address] [place] [address] 14020 Platelet mean volume (Bld) [Entitic vol] 9.8 fL Normal 8.7-12.3 [facility] Comment on above: Performed By: #### P TPTT #### [facility] (DEFAULT) [address] [place] [address]39 Platelets (Bld) [#/Vol] 208 10*3/uL Normal 146-337 [facility] Comment on above: Performed By: #### P TPTT #### [facility] (DEFAULT) [address] [place] [address] 33200 RBC (Bld) [#/Vol] 3.77 10*6/uL Low 4.38-5.83 [facility] Comment on above: Performed By: #### P TPTT #### [facility] (DEFAULT) [address] [place] [address] 77296 RBC Distribution 15.3 % High 10.9-14.3 [facility] Comment on above: Performed By: #### P TPTT #### [facility] (DEFAULT) [address] [place] [address] 21407 Segs + Bands Auto 67.9 % Normal [facility] Comment on above: Performed By: #### P TPTT #### [facility] (DEFAULT) [address] [place] [address] Segs + Bands,Absolute Auto 5.03 K/uL Normal 1.57-6.19 [facility] Comment on above: Performed By: #### P TPTT #### [facility] (DEFAULT) [address] [place] [address] 73665 WBC (Bld) [#/Vol] 7.41 10*3/uL Normal 3.73-10.10 [facility] Comment on above: Performed By: #### P TPTT #### [facility] (DEFAULT) [address] [place] [address] [phone] CHEM 7 (LYTES,BUN,CREA,GLUC) on 09-30-2024 Anion gap [Moles/Vol] 13 mmol/L 7 - 17 mmol/L [facility] Chloride [Moles/Vol] 105 mmol/L 98 - 10 8 mmol/L [facility] CO2 [Moles/Vol] 25 mmol/L 21 - 31 mmol/L [facility] Creatinine [Mass/Vol] 1.04 mg/dL 0.70 - 1.30 mg/dL [facility] eGFR, CKD-EPI, Male 83 - PINF [facility] Comment on above: Reported eGFR is bas ed on the CKD-EPI 2020 equation using creatinine, age, and sex. Glucose [Mass/Vol] 98 mg/dL 70 - 99 mg/dL [facility] Osmolality Calc [Osmolality] 295 [facility] Potassium [Moles/Vol] 4.1 mmol/L 3.5 - 5.0 mmol/L [facility] Sodium [Moles/Vol] 139 mmol/L 135 - 145 mmol/L [facility] Urea nitrogen [Mass/Vol] 24 mg/dL 7 - 25 mg/dL [facility] Urea nitrogen/Creatinine [Mass ratio] 23 mg/mg [facility] Anion gap [Moles/Vol] 13 mmol/L Normal 7-17 [facility] Comment on above: Performed By: #### C HM7 ####[facility] (DEFAULT)[address] [place] [address] Chloride [Moles/Vol] 105 mmol/L Normal 98-108 [facility] Comment on above: Performed By: #### C HM7 ####[facility] (DEFAULT)[address] [place] [address] CO2 [Moles/Vol] 25 mmol/L Normal 21-31 [facility] Comment on above: Performed By: #### C HM7 ####[facility] (DEFAULT)[address] [place] [address] Creatinine [Mass/Vol] 1.04 mg/dL Normal 0.70-1.30 [facility] Comment on above: Performed By: #### C HM7 ####[facility] (DEFAULT)[address] [place] [address] GFR/1.73 sq M.predicted among non-blacks MDRD (S/P/Bld) [Vol rate/Area] 83 mL/min/{1.73_m2} Normal >=60 [facility] Comment on above: Result Comment: Repo rted eGFR is based on the CKD-EPI 2020 equation using creatinine, age, and sex. Performed By: #### C HM7 ####[facility] (DEFAULT)[address] [place] [address] Glucose [Mass/Vol] 98 mg/dL Normal 70-99 [facility] Comment on above: Performed By: #### C HM7 ####[facility] (DEFAULT)[address] [place] [address] Osmolality [Osmolality] 295 mosm/kg Normal 278-305 [facility] Comment on above: Performed By: #### C HM7 ####[facility] (DEFAULT)[address] [place] [address] Potassium [Moles/Vol] 4.1 mmol/L Normal 3.5-5.0 [facility] Comment on above: Performed By: #### C HM7 ####[facility] (DEFAULT)[address] [place] [address] Sodium [Moles/Vol] 139 mmol/L Normal 135-145 [facility] Comment on above: Performed By: #### C HM7 ####[facility] (DEFAULT)[address] [place] [address] Urea nitrogen [Mass/Vol] 24 mg/dL Normal 7-25 [facility] Comment on above: Performed By: #### C HM7 ####[facility] (DEFAULT)[address] [place] [address] Urea nitrogen/Creatinine [Mass ratio] 23 mg/mg Normal [facility] Comment on above: Performed By: #### C HM7 ####[facility] (DEFAULT)[address] [place] [address] PT,INR,PTTon 09-30-2024 aPTT Coag (PPP) [Time] 50.4 s High [facility] INR Coag (Bld) [Relative time] 1.9 {INR} High 0.9 - 1.1 [facility] Interpretation and review of laboratory results Abnormal [facility] PT Coag (PPP) [Time] 21.9 s High [facility] Coag (Bld) [Time] 50.4 s High 24.0-34.3 [facility] Comment on above: Performed By: #### X MPO #### [facility] (DEFAULT) [address] [place] [address] INR Coag (PPP) [Relative time] 1.9 {INR} High 0.9-1.1 [facility] Comment on above: Performed By: #### X MPO #### [facility] (DEFAULT) [address] [place] [address] 9[address]31 PT Coag (PPP) [Time] 21.9 s High 11.9-14.2 [facility] Comment on above: Performed By: #### X MPO #### [facility] (DEFAULT) [address] [place] [address]001 XR CHEST PA AND LATERAL 2 EWSon 09-30-2024 XR CHEST PA AND LATERAL 2 VIEWS EXAM: XR CHEST PA AND LATERAL 2 VIEWS, 09/30/2024 15:27 PM COMPARISON: June 04, 2024 CLINICAL INDICATIONS: Rule out Pneumothorax Following Device Implantation RELEVANT CLINICAL HISTORY: Please complete this Xray within 2-4 hours from the completion of the procedure. Please read as a stat wet read. Please page the on-call EP fellow at [phone] with any emergent finding such as pneumothorax.; FINDINGS: (Adequate technique) Implanted Devices: No significant radiographic change in appearance the dual-chamber biventricular pacemaker. Lungs: Clear, without mass, interstitial disease, or consolidation. Pleural Spaces: No pleural effusion. No pneumothorax. Mediastinum and Liss: Normal Cardiac silhouette and great vessels: Normal heart size. Unremarkable aorta. Chest Wall: Normal IMPRESSION: No acute cardiopulmonary disease Normal [facility] XR Chest PA and Lateralon IMPRESSION: No acute cardiopulmonary disease OLOGY EXAM: XR CHEST PA AN D LATERAL 2 VIEWS, 09/30/2024 15:27 PM COMPARISON: June 04, 2024 CLINICAL INDICATIONS: Rule out Pneumothorax Following Device Implantation RELEVANT CLINICAL HISTORY: Please complete this Xray within 2-4 hours from the completion of the procedure. Please read as a stat wet read. Please page the on-call EP fellow at [phone] with any emergent finding such as pneumothorax.; FINDINGS: (Adequate technique) Implanted Devices: No significant radiographic change in appearance the dual-chamber biventricular pacemaker. Lungs: Clear, without mass, interstitial disease, or consolidation. Pleural Spaces: No pleural effusion. No pneumothorax. Mediastinum and Liss: Normal Cardiac silhouette and great vessels: Normal heart size. Unremarkable aorta. Chest Wall: Normal RADIOLOGY Shantelle Diaz M D - 09/30/2024 EXAM: XR CHEST PA AND LATERAL 2 VIEWS, 09/30/2024 15:27 PM COMPARISON: June 04, 2024 CLINICAL INDICATIONS: Rule out Pneumothorax Following Device Implantation RELEVANT CLINICAL HISTORY: Please complete this Xray within 2-4 hours from the completion of the procedure. Please read as a stat wet read. Please page the on-call EP fellow at [phone] with any emergent finding such as pneumothorax.; FINDINGS: (Adequate technique) Implanted Devices: No significant radiographic change in appearance the dual-chamber biventricular pacemaker. Lungs: Clear, without mass, interstitial disease, or consolidation. Pleural Spaces: No pleural effusion. No pneumothorax. Mediastinum and Liss: Normal Cardiac silhouette and great vessels: Normal heart size. Unremarkable aorta. Chest Wall: Normal IMPRESSION IMPRESSION: No acute cardiopulmonary disease [facility] Radiology Study observation (narrative) [facility] XR Chest PA and LateralOrder ed By: Shantelle Diaz on 09-30-2024 [facility] Work Phone: EP PROCEDURE - EPS/ABLATION/ DEVICEon 09-28-2024 EP PROCEDURE - EPS/ABLATION/DEVICE 59 y.o. male with history of NICM, frequent PVCs who presents to EP lab for EPS and PVC ablation. Narrative: The patient was brought to the electrophysiology laboratory in a fasting state. Two spontaneous PVCs were noted. The first appeared endocardial with RBSA and short MDI. The second more predominant PVC appeared epicardial given long MDI. It had a RBIA. Sedation provided by anesthesia. The groins were prepped and draped in the usual manner and the skin and subcutaneous tissues in the right groin were infiltrated with 1% lidocaine for local anesthesia. RFV access was obtained with 8F, 7F sheaths using real-time US guidance. RCFA access with a 8F sheath was obtained using fluoroscopic landmarks and real-time US guidance. Basic electrophysiological testing was performed with results listed below. ICE was used to delineate basic LV and AV anatomy. Heparin was given. PVC mapping began with an Optrell catheter in the LV. An endocardial area of posteroseptal near the basal LV was noted to have >50ms pre-QRS for the endocardial PVC#1. This area was ablated with STSF and this PVC was not observed for the remainder of the case. During mapping of this PVC, MMVT was induced by catheter movement and required external defibrillation. Attention was turned to PVC#2. Decanav was used to map the LV summit in the superior distal CS. A BMW wire was also hooked up to Carto to allow visualize and earliest PVC#1 signal was visualized near the os of the AIV. Epicardial access was attempted first with perforation of CS branch (unsuccessful) and subsequently by epicardial dry tap, which was also unsuccessful due to prior loculated effusion. Subsequently, the STSF was utilized to ablate endocardially opposite the site of the earliest CS signal. Two 3-minute lesions were performed in this area with marked suppression in PVCs. The patient was placed on isuprel 10 mcg and he was extubated. After 10 minutes of wait time, no clinical PVC's were seen. There was a sporadic PVC with a 94% pattern match. Venous closure x2 was closed with Vascade. Femoral aniogram revealed access at the bifurcation so manual pressure will be appliced. The ICD therapies were turned back on. 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 Plan: RFV x2 and RCFA x1 sheath removal and management. Bedrest for 4 hours. Recs per EP consult service. Table formatting from the original result was not included. Tania Venegas EP Procedure - EPS/Ablation/Device Ordering Physician: VANGIE CRUZ Order #: [id number] Study Date: 09/25/2024 Patient Information Name MRN Description Tania Venegas [id number] 59 y.o. male Physicians Panel Physicians Referring Physician Case Authorizing Physician Kristen Harrison MD (Primary) MD Vangie Jose MD Cory Madigan, MD (Fellow) Procedures VT Ablation Pre Procedure Diagnosis PVC (premature ventricular contraction) [I49.3] Post Procedure Diagnosis PVC (premature ventricular contraction) [I49.3] Indications PVC (premature ventricular contraction) [I49.3 (ICD-10-CM)] Conclusion 59 y.o. male with history of NICM, frequent PVCs who presents to EP lab for EPS and PVC ablation. Narrative: The patient was brought to the electrophysiology laboratory in a fasting state. Two spontaneous PVCs were noted. The first appeared endocardial with RBSA and short MDI. The second more predominant PVC appeared epicardial given long MDI. It had a RBIA. Sedation provided by anesthesia. The groins were prepped and draped in the usual manner and the skin and subcutaneous tissues in the right groin were infiltrated with 1% lidocaine for local anesthesia. RFV access was obtained with 8F, 7F sheaths using real-time US guidance. RCFA access with a 8F sheath was obtained using fluoroscopic landmarks and real-time US guidance. Basic electrophysiological testing was performed with results listed below. ICE was used to delineate basic LV and AV anatomy. Heparin was given. PVC mapping began with an Optrell catheter in the LV. An endocardial area of posteroseptal near the basal LV was noted to have >50ms pre-QRS for the endocardial PVC#1. This area was ablated with STSF and this PVC was not observed for the remainder of the case. During mapping of this PVC, MMVT was induced by catheter movement and required external defibrillation. Attention was turned to PVC#2. Decanav was used to map the LV summit in the superior distal CS. A BMW wire was also hooked up to Carto to allow visualize and earliest PVC#1 signal was visualized near the os of the AIV. Epicardial access was attempted first with perforation of CS branch (unsuccessful) and subsequently by epicardial dry tap, which was also unsuccessful due to prior loculated effusion. Subsequently, the STSF was utilized to ablate endocardially opposite the site of the earliest CS signal. Two 3-minute lesions were performed in this area with marked suppression in PVCs. The patient was placed on isuprel (more content not included)... Normal [facility] B-TYPE NATRIURETIC PEPTIDE ( BRAIN)on 09-26-2024 Interpretation and review of laboratory results Abnormal [facility] Natriuretic peptide B (Bld) [Mass/Vol] 403 pg/mL High 0 - 100 pg/mL [facility] Natriuretic peptide B (Bld) [Mass/Vol] 403 pg/mL High 0-100 [facility] Comment on above: Performed By: #### L [id number] #### [facility] (DEFAULT) [address] [place] [address] CARDIAC RHYTHM (SCANNED)on 11-26-2023 [facility] CBC,PLATELETSon 09-26-2024 Erythrocyte distribution width (RBC) [Ratio] 15.0 % High 10.9 - 14.3 % [facility] Hematocrit (Bld) [Volume fraction] 36.7 % Low 39.6 - 48.8 % [facility] Hemoglobin (Bld) [Mass/Vol] 12.0 g/dL Low 13.4 - 16.8 g/dL [facility] Interpretation and review of laboratory results Abnormal [facility] MCH (RBC) [Entitic mass] 30.3 pg 26.1 - 33.3 pg [facility] MCHC (RBC) [Mass/Vol] 32.7 g/dL 31.9 - 36.5 g/dL [facility] MCV (RBC) [Entitic vol] 92.7 fL 79.0 - 94.5 fL [facility] Platelet mean volume (Bld) [Entitic vol] 9.8 fL 8.7 - 12.3 fL [facility] Platelets (Bld) [#/Vol] 230 10*3/uL 146 - 337 K/uL [facility] RBC (Bld) [#/Vol] 3.96 10*6/uL Low [facility] WBC (Bld) [#/Vol] 11.11 10*3/uL High 3.73 - 10 .10 K/uL [facility] Hematocrit (Bld) [Volume fraction] 36.7 % Low 39.6-48.8 [facility] Comment on above: Performed By: #### P TPTT #### [facility] (DEFAULT) [address] [place] [address] Hemoglobin (Bld) [Mass/Vol] 12.0 g/dL Low 13.4-16.8 [facility] Comment on above: Performed By: #### P TPTT #### [facility] [facility] (DEFAULT) [address] [place] [address] 47169 MCV (RBC) [Entitic vol] 92.7 fL Normal 79.0-94.5 [facility] Comment on above: Performed By: #### P TPTT #### [facility] (DEFAULT) [address] [place] [address] 60996 Mean Cell Hgb 30.3 pg Normal 26.1-33.3 [facility] Comment on above: Performed By: #### P TPTT #### [facility] (DEFAULT) [address] [place] [address] 41191 Mean Cell Hgb Conc 32.7 g/dL Normal 31.9-36.5 [facility] Comment on above: Performed By: #### P TPTT #### [facility] (DEFAULT) [address] [place] [address] 41038 Platelet mean volume (Bld) [Entitic vol] 9.8 fL Normal 8.7-12.3 [facility] Comment on above: Performed By: #### P TPTT #### [facility] (DEFAULT) [address] [place] [address] 75751 Platelets (Bld) [#/Vol] 230 10*3/uL Normal 146-337 [facility] Comment on above: Performed By: #### P TPTT #### [facility] (DEFAULT) [address] [place] [address] 76235 RBC (Bld) [#/Vol] 3.96 10*6/uL Low 4.38-5.83 [facility] Comment on above: Performed By: #### P TPTT #### [facility] (DEFAULT) [address] [place] [address] 65957 RBC Distribution 15.0 % High 10.9-14.3 [facility] Comment on above: Performed By: #### P TPTT #### [facility] (DEFAULT) [address] [place] [address] 72659 WBC (Bld) [#/Vol] 11.11 10*3/uL High 3.73-10.10 [facility] Comment on above: Performed By: #### P TPTT #### [facility] (DEFAULT) [address] [place] [address] 87346 CHEM 6 (LYTES, BUN CREA)on 11-26-2023 Anion gap [Moles/Vol] 13 mmol/L 7 - 17 mmol/L [facility] Chloride [Moles/Vol] 100 mmol/L 98 - 10 8 mmol/L [facility] CO2 [Moles/Vol] 25 mmol/L 21 - 31 mmol/L [facility] Creatinine [Mass/Vol] 1.21 mg/dL 0.70 - 1.30 mg/dL [facility] eGFR, CKD-EPI, Male 69 - PINF [facility] Comment on above: Reported eGFR is bas ed on the CKD-EPI 2020 equation using creatinine, age, and sex. Interpretation and review of laboratory results Abnormal [facility] Potassium [Moles/Vol] 4.3 mmol/L 3.5 - 5.0 mmol/L [facility] Sodium [Moles/Vol] 134 mmol/L Low 135 - 145 mmol/L [facility] Urea nitrogen [Mass/Vol] 23 mg/dL 7 - 25 mg/dL [facility] Urea nitrogen/Creatinine [Mass ratio] 19 mg/mg [facility] Anion gap [Moles/Vol] 13 mmol/L Normal 7-17 [facility] Comment on above: Performed By: #### X M #### [facility] (DEFAULT) [address] [address] Chloride [Moles/Vol] 100 mmol/L Normal 98-108 [facility] Comment on above: Performed By: #### X M #### [facility] (DEFAULT) [address] [place] [address] 45387 CO2 [Moles/Vol] 25 mmol/L Normal 21-31 [facility] Comment on above: Performed By: #### X M #### [facility] (DEFAULT) [address] [place] [address] 69159 Creatinine [Mass/Vol] 1.21 mg/dL Normal 0.70-1.30 [facility] Comment on above: Performed By: #### X M #### [facility] (DEFAULT) [address] [place] [address] 02000 GFR/1.73 sq M.predicted among non-blacks MDRD (S/P/Bld) [Vol rate/Area] 69 mL/min/{1.73_m2} Normal >=60 [facility] Comment on above: Result Comment: Repo rted eGFR is based on the CKD-EPI 2020 equation using creatinine, age, and sex. Performed By: #### X M #### [facility] (DEFAULT) [address] [place] [address] 51457 Potassium [Moles/Vol] 4.3 mmol/L Normal 3.5-5.0 [facility] Comment on above: Performed By: #### X M #### [facility] (DEFAULT) [address] [place] [address] 96138 Sodium [Moles/Vol] 134 mmol/L Low 135-145 [facility] Comment on above: Performed By: #### X M #### [facility] (DEFAULT) [address] [place] [address] 19757 Urea nitrogen [Mass/Vol] 23 mg/dL Normal 7-25 [facility] Comment on above: Performed By: #### X M #### [facility] (DEFAULT) [address] [address] Urea nitrogen/Creatinine [Mass ratio] 19 mg/mg Normal [facility] Comment on above: Performed By: #### X M #### [facility] (DEFAULT) [address] [place] [address] 98558 PROTIME-INRon 09-26-2024 INR Coag (Bld) [Relative time] 1.6 {INR} High 0.9 - 1.1 [facility] Interpretation and review of laboratory results Abnormal [facility] PT Coag (PPP) [Time] 18.5 s High [facility] INR Coag (PPP) [Relative time] 1.6 {INR} High 0.9-1.1 [facility] Comment on above: Order Comment: Daily until INR is therapeutic for 2 consecutive days, then every 2 days for 14 days or until discharged. Performed By: #### X MPO #### [facility] (DEFAULT) [address] [place] [address] 05607 PT Coag (PPP) [Time] 18.5 s High 11.9-14.2 [facility] Comment on above: Order Comment: Daily until INR is therapeutic for 2 consecutive days, then every 2 days for 14 days or until discharged. Performed By: #### X MPO #### [facility] (DEFAULT) [address] [place] [address] ACT* LOW RANGE, POCon 2023 [facility], POC [facility].0 [facility] and review [facility] laboratory results Abnormal [facility] Test performed at address of the patient encounter. [facility] ACT LOW RANGE, POC 335.0 High [facility] Interpretation and review of laboratory results Abnormal [facility] Test performed at address of the patient encounter. [facility] ACT LOW RANGE, POC 290.0 High [facility] Interpretation and review of laboratory results Abnormal [facility] Test performed [facility] the [facility]. [facility] ACT LOW RANGE, POC 353.0 High [facility] Interpretation and review of laboratory results Abnormal [facility] Test performed at address of the patient encounter. [facility] ACT LOW RANGE, POC 343.0 High [facility] Interpretation and review of laboratory results Abnormal [facility] Test performed at address of the patient encounter. [facility] CBC,PLATELETSon 09-25-2024 Erythrocyte distribution width (RBC) [Ratio] 15.0 % High 10.9 - 14.3 % [facility] Hematocrit (Bld) [Volume fraction] 41.6 % 39.6 - 48.8 % [facility] Hemoglobin (Bld) [Mass/Vol] 13.8 g/dL 13.4 - 16.8 g/dL [facility] Interpretation and review of laboratory results Abnormal [facility] MCH (RBC) [Entitic mass] 30.5 pg 26.1 - 33.3 pg [facility] MCHC (RBC) [Mass/Vol] 33.2 g/dL 31.9 - 36.5 g/dL [facility] MCV (RBC) [Entitic vol] 92.0 fL 79.0 - 94.5 fL [facility] Platelet mean volume (Bld) [Entitic vol] 10.1 fL 8.7 - 12.3 fL [facility] Platelets (Bld) [#/Vol] 283 10*3/uL 146 - 337 K/uL [facility] RBC (Bld) [#/Vol] 4.52 10*6/uL [facility] WBC (Bld) [#/Vol] 8.73 10*3/uL 3.73 - 10. 10 K/uL [facility] Hematocrit (Bld) [Volume fraction] 41.6 % Normal 39.6-48.8 [facility] Comment on above: Performed By: #### L [id number] #### [facility] (DEFAULT) [address] [address] Hemoglobin (Bld) [Mass/Vol] 13.8 g/dL Normal 13.4-16.8 [facility] Comment on above: Performed By: #### L [id number] #### [facility] (DEFAULT) [address] [address]280 MCV (RBC) [Entitic vol] 92.0 fL Normal 79.0-94.5 [facility] Comment on above: Performed By: #### L [id number] #### [facility] (DEFAULT) [address] 68765 Mean Cell Hgb 30.5 pg Normal 26.1-33.3 [facility] Comment on above: Performed By: #### L [id number] #### [facility] (DEFAULT) [address] [address]370 Mean Cell Hgb Conc 33.2 g/dL Normal 31.9-36.5 [facility] Comment on above: Performed By: #### L [id number] #### [facility] (DEFAULT) [address] [address] Platelet mean volume (Bld) [Entitic vol] 10.1 fL Normal 8.7-12.3 [facility] Comment on above: Performed By: #### L [id number] #### [facility] (DEFAULT) [address] [place] [address] 92021 Platelets (Bld) [#/Vol] 283 10*3/uL Normal 146-337 [facility] Comment on above: Performed By: #### L [id number] #### [facility] (DEFAULT) [address] [place] [address] 41908 RBC (Bld) [#/Vol] 4.52 10*6/uL Normal 4.38-5.83 [facility] Comment on above: Performed By: #### L [id number] #### [facility] (DEFAULT) [address] [place] [address] 56349 RBC Distribution 15.0 % High 10.9-14.3 [facility] Comment on above: Performed By: #### L [id number] #### [facility] (DEFAULT) [address] [place] [address] 13285 WBC (Bld) [#/Vol] 8.73 10*3/uL Normal 3.73-10.10 [facility] Comment on above: Performed By: #### L [id number] #### [facility] (DEFAULT) [address] [place] [address] 75675 CHEM 7 (LYTES,BUN,CREA,GLUC) on 09-25-2024 Anion gap [Moles/Vol] 14 mmol/L 7 - 17 mmol/L [facility] Chloride [Moles/Vol] 101 mmol/L 98 - 10 8 mmol/L [facility] CO2 [Moles/Vol] 24 mmol/L 21 - 31 mmol/L [facility] Creatinine [Mass/Vol] 1.17 mg/dL 0.70 - 1.30 mg/dL [facility] eGFR, CKD-EPI, Male 72 - PINF [facility] Comment on above: Reported eGFR is bas ed on the CKD-EPI 2020 equation using creatinine, age, and sex. Glucose [Mass/Vol] 109 mg/dL High 70 - 99 mg/dL [facility] Interpretation and review of laboratory results Abnormal [facility] Osmolality Calc [Osmolality] 287 [facility] Potassium [Moles/Vol] 4.5 mmol/L 3.5 - 5.0 mmol/L [facility] Sodium [Moles/Vol] 134 mmol/L Low 135 - 145 mmol/L [facility] Urea nitrogen [Mass/Vol] 23 mg/dL 7 - 25 mg/dL [facility] Urea nitrogen/Creatinine [Mass ratio] 20 mg/mg [facility] Anion gap [Moles/Vol] 14 mmol/L Normal 7-17 [facility] Comment on above: Performed By: #### X MPO #### [facility] (DEFAULT) [address] [address] Chloride [Moles/Vol] 101 mmol/L Normal 98-108 [facility] Comment on above: Performed By: #### X MPO #### [facility] (DEFAULT) [address] [address] CO2 [Moles/Vol] 24 mmol/L Normal 21-31 [facility] Comment on above: Performed By: #### X MPO #### [facility] (DEFAULT) [address] [address] Creatinine [Mass/Vol] 1.17 mg/dL Normal 0.70-1.30 [facility] Comment on above: Performed By: #### X MPO #### [facility] (DEFAULT) [address] [address] GFR/1.73 sq M.predicted among non-blacks MDRD (S/P/Bld) [Vol rate/Area] 72 mL/min/{1.73_m2} Normal >=60 [facility] Comment on above: Result Comment: Repo rted eGFR is based on the CKD-EPI 2020 equation using creatinine, age, and sex. Performed By: #### X MPO #### [facility] (DEFAULT) [address] [address] Glucose [Mass/Vol] 109 mg/dL High 70-99 [facility] Comment on above: Performed By: #### X MPO #### [facility] (DEFAULT) [address] [place] [address] 66925 Osmolality [Osmolality] 287 mosm/kg Normal 278-305 [facility] Comment on above: Performed By: #### X MPO #### [facility] (DEFAULT) [address] [place] [address] 04226 Potassium [Moles/Vol] 4.5 mmol/L Normal 3.5-5.0 [facility] Comment on above: Performed By: #### X MPO #### [facility] (DEFAULT) [address] [place] [address] 78057 Sodium [Moles/Vol] 134 mmol/L Low 135-145 [facility] Comment on above: Performed By: #### X MPO #### [facility] (DEFAULT) [address] [place] [address] 60929 Urea nitrogen [Mass/Vol] 23 mg/dL Normal 7-25 [facility] Comment on above: Performed By: #### X MPO #### [facility] (DEFAULT) [address] [place] [address] 90183 Urea nitrogen/Creatinine [Mass ratio] 20 mg/mg Normal [facility] Comment on above: Performed By: #### X MPO #### [facility] (DEFAULT) [address] [place] [address] 52539 PROTIME-INRon 09-25-2024 INR Coag (Bld) [Relative time] 1.5 {INR} High 0.9 - 1.1 [facility] Interpretation and review of laboratory results Abnormal [facility] PT Coag (PPP) [Time] 18.2 s High [facility] INR Coag (PPP) [Relative time] 1.5 {INR} High 0.9-1.1 [facility] Comment on above: Performed By: #### T DEBORAH, FT4 #### [facility] (DEFAULT) [address] [place] [address] PT Coag (PPP) [Time] 18.2 s High 11.9-14.2 [facility] Comment on above: Performed By: #### T DEBORAH, FT4 #### [facility] (DEFAULT) [address] [place] [address] BASIC METABOLIC PANELon 08-27 Anion gap [Moles/Vol] 12 mmol/L 7 - 17 mmol/L [facility] Calcium [Mass/Vol] 8.6 mg/dL 8.6 - 10. 5 mg/dL [facility] Chloride [Moles/Vol] 101 mmol/L 98 - 10 8 mmol/L [facility] CO2 [Moles/Vol] 27 mmol/L 21 - 31 mmol/L [facility] Creatinine [Mass/Vol] 1.20 mg/dL 0.70 - 1.30 mg/dL [facility] eGFR, CKD-EPI, Male 70 - PINF [facility] Comment on above: Reported eGFR is bas ed on the CKD-EPI 2020 equation using creatinine, age, and sex. Glucose [Mass/Vol] 94 mg/dL 70 - 99 mg/dL [facility] Interpretation and review of laboratory results Abnormal [facility] Osmolality Calc [Osmolality] 290 [facility] Potassium [Moles/Vol] 3.9 mmol/L 3.5 - 5.0 mmol/L [facility] Sodium [Moles/Vol] 136 mmol/L 135 - 145 mmol/L [facility] Urea nitrogen [Mass/Vol] 27 mg/dL High 7 - 25 mg/dL [facility] Urea nitrogen/Creatinine [Mass ratio] 23 mg/mg [facility] Anion gap [Moles/Vol] 12 mmol/L Normal 7-17 [facility] Comment on above: Performed By: #### C 7C ####[facility] (DEFAULT)[address] [place] [address] Calcium [Mass/Vol] 8.6 mg/dL Normal 8.6-10.5 [facility] Comment on above: Performed By: #### C 7C ####[facility] (DEFAULT)[address] [place] [address] Chloride [Moles/Vol] 101 mmol/L Normal 98-108 [facility] Comment on above: Performed By: #### C 7C ####[facility] (DEFAULT)[address] [facility] [place] [address] CO2 [Moles/Vol] 27 mmol/L Normal 21-31 [facility] Comment on above: Performed By: #### C 7C ####[facility] (DEFAULT)[address] [place] [address], [place] [address] Creatinine [Mass/Vol] 1.20 mg/dL Normal 0.70-1.30 [facility] Comment on above: Performed By: #### C 7C ####[facility] (DEFAULT)[address] [place] [address]441 GFR/1.73 sq M.predicted among non-blacks MDRD (S/P/Bld) [Vol rate/Area] 70 mL/min/{1.73_m2} Normal >=60 [facility] Comment on above: Result Comment: Repo rted eGFR is based on the CKD-EPI 2020 equation using creatinine, age, and sex. Performed By: #### C 7C ####[facility] (DEFAULT)[address] [place] [address], [place] [address] Glucose [Mass/Vol] 94 mg/dL Normal 70-99 [facility] Comment on above: Performed By: #### C 7C ####[facility] (DEFAULT)[address] [place] [address], [place] [address] Osmolality [Osmolality] 290 mosm/kg Normal 278-305 [facility] Comment on above: Performed By: #### C 7C ####[facility] (DEFAULT)[address] [place] [address] Potassium [Moles/Vol] 3.9 mmol/L Normal 3.5-5.0 [facility] Comment on above: Performed By: #### C 7C ####[facility] (DEFAULT)[address] [place] [address] Sodium [Moles/Vol] 136 mmol/L Normal 135-145 [facility] Comment on above: Performed By: #### C 7C ####[facility] (DEFAULT)[address] [facility] [place] [address] Urea nitrogen [Mass/Vol] 27 mg/dL High 7-25 [facility] Comment on above: Performed By: #### C 7C ####[facility] (DEFAULT)[address] [place] [address] Urea nitrogen/Creatinine [Mass ratio] 23 mg/mg Normal [facility] Comment on above: Performed By: #### C 7C ####[facility] (DEFAULT)[address] [facility] [place] [address] CBC AND ELECTRONIC DIFFon Basophils (Bld) [#/Vol] K/uL 0.00 - 0.09 K/uL [facility] Basophils/100 WBC (Bld) 0.4 % [facility] Differential cell count method Nom (Bld) Electronic Differential [facility] Eosinophils (Bld) [#/Vol] 0.14 10*3/uL 0.00 - 0.48 K/uL [facility] Eosinophils/100 WBC (Bld) 1.7 % [facility] Erythrocyte distribution width (RBC) [Ratio] 15.0 % High 10.9 - 14.3 % [facility] Hematocrit (Bld) [Volume fraction] 37.7 % Low 39.6 - 48.8 % [facility] Hemoglobin (Bld) [Mass/Vol] 12.1 g/dL Low 13.4 - 16.8 g/dL [facility] Immature granulocytes (Bld) [#/Vol] 0.04 10*3/uL NINF - 0.07 K/uL [facility] Immature granulocytes/100 WBC (Bld) 0.5 % [facility] Interpretation and review of laboratory results Abnormal [facility] Lymphocytes (Bld) [#/Vol] 1.66 10*3/uL 0.83 - 3.57 K/uL [facility] Lymphocytes/100 WBC (Bld) 20.6 % [facility] MCH (RBC) [Entitic mass] 30.0 pg 26.1 - 33.3 pg [facility] MCHC (RBC) [Mass/Vol] 32.1 g/dL 31.9 - 36.5 g/dL [facility] MCV (RBC) [Entitic vol] 93.3 fL 79.0 - 94.5 fL [facility] Monocytes (Bld) [#/Vol] 0.83 10*3/uL 0.24 - 0.93 K/uL [facility] Monocytes/100 WBC (Bld) 10.3 % [facility] Neutrophils (Bld) [#/Vol] 5.36 10*3/uL 1.57 - 6.19 K/uL [facility] Nucleated RBC/100 WBC (Bld) [Ratio] 0.0 % [facility] Platelet mean volume (Bld) [Entitic vol] 9.8 fL 8.7 - 12.3 fL [facility] Platelets (Bld) [#/Vol] 221 10*3/uL 146 - 337 K/uL [facility] RBC (Bld) [#/Vol] 4.04 10*6/uL Low [facility] Segmented neutrophils/100 WBC (Bld) 66.5 % [facility] WBC (Bld) [#/Vol] 8.06 10*3/uL 3.73 - 10. 10 K/uL [facility] Abs Baso Auto < Normal 0.00-0.09 [facility] Comment on above: Performed By: #### X MPO #### [facility] (DEFAULT) [address] [place] [address] Basophils/100 WBC (Bld) 0.4 % Normal [facility] Comment on above: Performed By: #### X MPO #### [facility] (DEFAULT) [address] [place] [address] 87542 DIFF STATUS Electronic Differential Normal [facility] Comment on above: Performed By: #### X MPO #### [facility] (DEFAULT) [address] [place] [address] Eosinophils (Bld) [#/Vol] 0.14 10*3/uL Normal 0.00-0.48 [facility] Comment on above: Performed By: #### X MPO #### [facility] (DEFAULT) [address] [place] [address]202 Eosinophils/100 WBC (Bld) 1.7 % Normal [facility] Comment on above: Performed By: #### X MPO #### [facility] (DEFAULT) [address] [place] [address] 37854 Hematocrit (Bld) [Volume fraction] 37.7 % Low 39.6-48.8 [facility] Comment on above: Performed By: #### X MPO #### [facility] (DEFAULT) [address] [place] [address] Hemoglobin (Bld) [Mass/Vol] 12.1 g/dL Low 13.4-16.8 [facility] Comment on above: Performed By: #### X MPO #### [facility] (DEFAULT) [address] [address] Immature Grans % 0.5 % Normal [facility] Comment on above: Performed By: #### X MPO #### [facility] (DEFAULT) [address] [place] [address] Immature Grans Absolute 0.04 K/uL Normal <=0.07 [facility] Comment on above: Performed By: #### X MPO #### [facility] (DEFAULT) [address] [place] [address]204 Lymphocytes (Bld) [#/Vol] 1.66 10*3/uL Normal 0.83-3.57 [facility] Comment on above: Performed By: #### X MPO #### [facility] (DEFAULT) [address] [place] [address] 40295 Lymphocytes/100 WBC (Bld) 20.6 % Normal [facility] Comment on above: Performed By: #### X MPO #### [facility] (DEFAULT) [address] [place] [address] 05576 MCV (RBC) [Entitic vol] 93.3 fL Normal 79.0-94.5 [facility] [facility] Comment on above: Performed By: #### X MPO #### [facility] (DEFAULT) [address] [place] [address] Mean Cell Hgb 30.0 pg Normal 26.1-33.3 [facility] Comment on above: Performed By: #### X MPO #### [facility] (DEFAULT) [address] [address] Mean Cell Hgb Conc 32.1 g/dL Normal 31.9-36.5 [facility] Comment on above: Performed By: #### X MPO #### [facility] (DEFAULT) [address] [place] [address] Monocytes (Bld) [#/Vol] 0.83 10*3/uL Normal 0.24-0.93 [facility] Comment on above: Performed By: #### X MPO #### [facility] (DEFAULT) [address] [address] Monocytes/100 WBC (Bld) 10.3 % Normal [facility] Comment on above: Performed By: #### X MPO #### [facility] (DEFAULT) [address] [place] [address]60 Nucleated RBC 0.0 /100 WBC Normal <=0.2 [facility] Comment on above: Performed By: #### X MPO #### [facility] (DEFAULT) [address] [address] Platelet mean volume (Bld) [Entitic vol] 9.8 fL Normal 8.7-12.3 [facility] Comment on above: Performed By: #### X MPO #### [facility] (DEFAULT) [address] [address] Platelets (Bld) [#/Vol] 221 10*3/uL Normal 146-337 [facility] Comment on above: Performed By: #### X MPO #### [facility] (DEFAULT) [address] [address] RBC (Bld) [#/Vol] 4.04 10*6/uL Low 4.38-5.83 [facility] Comment on above: Performed By: #### X MPO #### [facility] (DEFAULT) [address] [address] RBC Distribution 15.0 % High 10.9-14.3 [facility] Comment on above: Performed By: #### X MPO #### [facility] (DEFAULT) [address] [address] Segs + Bands Auto 66.5 % Normal [facility] Comment on above: Performed By: #### X MPO #### [facility] (DEFAULT) [address] [address] Segs + Bands,Absolute Auto 5.36 K/uL Normal 1.57-6.19 [facility] Comment on above: Performed By: #### X MPO #### [facility] (DEFAULT) [address] [address] WBC (Bld) [#/Vol] 8.06 10*3/uL Normal 3.73-10.10 [facility] Comment on above: Performed By: #### X MPO #### [facility] (DEFAULT) [address] [place] [address] PROTIME-INRon 09-24-2024 INR Coag (Bld) [Relative time] 1.6 {INR} High 0.9 - 1.1 [facility] Interpretation and review of laboratory results Abnormal [facility] PT Coag (PPP) [Time] 19.2 s High [facility] INR Coag (PPP) [Relative time] 1.6 {INR} High 0.9-1.1 [facility] Comment on above: Order Comment: Daily until INR is therapeutic for 2 consecutive days, then every 2 days for 14 days or until discharged. Performed By: #### T DEBORAH, FT4 #### [facility] (DEFAULT) [address] [place] [address] PT Coag (PPP) [Time] 19.2 s High 11.9-14.2 [facility] Comment on above: Order Comment: Daily until INR is therapeutic for 2 consecutive days, then every 2 days for 14 days or until discharged. Performed By: #### T DEBORAH, FT4 #### [facility] (DEFAULT) [address] [place] [address] ANGIOTENSIN CONVERTING ENZYM Patrick 09-23-2024 Angiotensin converting enzyme [Catalytic activity/Vol] 51 U/L 19 - 123 U/L [facility] Interpretation and review of laboratory results Normal [facility] Angiotensin converting enzyme [Catalytic activity/Vol] 51 U/L Normal 19-123 [facility] Comment on above: Performed By: #### T DEBORAH, FT4 #### [facility] (DEFAULT) [address] [place] [address] C REACTIVE PROTEINon 024 CRP High sensitivity method [Mass/Vol] 19.23 mg/L High NINF - 10.00 mg/L [facility] Interpretation and review of laboratory results Abnormal [facility] CRP [Mass/Vol] 19.23 mg/L High <10.00 [facility] Comment on above: Performed By: #### B ADDRESSING MACHINE OPERATOR #### [facility] (DEFAULT) [address] [place] [address] CBC,PLATELETSon 09-23-2024 Erythrocyte distribution width (RBC) [Ratio] 15.2 % High 10.9 - 14.3 % [facility] Hematocrit (Bld) [Volume fraction] 34.8 % Low 39.6 - 48.8 % [facility] Hemoglobin (Bld) [Mass/Vol] 11.2 g/dL Low 13.4 - 16.8 g/dL [facility] Interpretation and review of laboratory results Abnormal [facility] MCH (RBC) [Entitic mass] 30.0 pg 26.1 - 33.3 pg [facility] MCHC (RBC) [Mass/Vol] 32.2 g/dL 31.9 - 36.5 g/dL [facility] MCV (RBC) [Entitic vol] 93.3 fL 79.0 - 94.5 fL [facility] Platelet mean volume (Bld) [Entitic vol] 10.7 fL 8.7 - 12.3 fL [facility] Platelets (Bld) [#/Vol] 212 10*3/uL 146 - 337 K/uL [facility] RBC (Bld) [#/Vol] 3.73 10*6/uL Low [facility] WBC (Bld) [#/Vol] 7.37 10*3/uL 3.73 - 10. 10 K/uL [facility] Hematocrit (Bld) [Volume fraction] 34.8 % Low 39.6-48.8 [facility] Comment on above: Performed By: #### P TPTT #### [facility] (DEFAULT) [address] [place] [address] Hemoglobin (Bld) [Mass/Vol] 11.2 g/dL Low 13.4-16.8 [facility] Comment on above: Performed By: #### P TPTT #### [facility] (DEFAULT) [address] [place] [address] MCV (RBC) [Entitic vol] 93.3 fL Normal 79.0-94.5 [facility] Comment on above: Performed By: #### P TPTT #### [facility] (DEFAULT) [address] [place] [address] Mean Cell Hgb 30.0 pg Normal 26.1-33.3 [facility] Comment on above: Performed By: #### P TPTT #### [facility] (DEFAULT) [address] [place] [address] Mean Cell Hgb Conc 32.2 g/dL Normal 31.9-36.5 [facility] Comment on above: Performed By: #### P TPTT #### [facility] (DEFAULT) [address] [place] [address] Platelet mean volume (Bld) [Entitic vol] 10.7 fL Normal 8.7-12.3 [facility] Comment on above: Performed By: #### P TPTT #### [facility] (DEFAULT) [address] [place] [address] Platelets (Bld) [#/Vol] 212 10*3/uL Normal 146-337 [facility] Comment on above: Performed By: #### P TPTT #### [facility] (DEFAULT) [address] [address] RBC (Bld) [#/Vol] 3.73 10*6/uL Low 4.38-5.83 [facility] Comment on above: Performed By: #### P TPTT #### [facility] (DEFAULT) [address] [address] RBC Distribution 15.2 % High 10.9-14.3 [facility] Comment on above: Performed By: #### P TPTT #### [facility] (DEFAULT) [address] [place] [address] WBC (Bld) [#/Vol] 7.37 10*3/uL Normal 3.73-10.10 [facility] Comment on above: Performed By: #### P TPTT #### [facility] (DEFAULT) [address] [place] [address] CHEM 7 (LYTES,BUN,CREA,GLUC) on 09-23-2024 Anion gap [Moles/Vol] 14 mmol/L 7 - 17 mmol/L [facility] Chloride [Moles/Vol] 105 mmol/L 98 - 10 8 mmol/L [facility] CO2 [Moles/Vol] 26 mmol/L 21 - 31 mmol/L [facility] Creatinine [Mass/Vol] 1.21 mg/dL 0.70 - 1.30 mg/dL [facility] eGFR, CKD-EPI, Male 69 - PINF [facility] Comment on above: Reported eGFR is bas ed on the CKD-EPI 2020 equation using creatinine, age, and sex. Glucose [Mass/Vol] 90 mg/dL 70 - 99 mg/dL [facility] Osmolality Calc [Osmolality] 298 [facility] Potassium [Moles/Vol] 4.3 mmol/L 3.5 - 5.0 mmol/L [facility] Sodium [Moles/Vol] 141 mmol/L 135 - 145 mmol/L [facility] Urea nitrogen [Mass/Vol] 21 mg/dL 7 - 25 mg/dL [facility] Urea nitrogen/Creatinine [Mass ratio] 17 mg/mg [facility] Anion gap [Moles/Vol] 14 mmol/L Normal 7-17 [facility] Comment on above: Performed By: #### B ADDRESSING MACHINE OPERATOR #### [facility] (DEFAULT) [address] [place] [address] Chloride [Moles/Vol] 105 mmol/L Normal 98-108 [facility] Comment on above: Performed By: #### B ADDRESSING MACHINE OPERATOR #### [facility] (DEFAULT) [address] [place] [address] CO2 [Moles/Vol] 26 mmol/L Normal 21-31 [facility] Comment on above: Performed By: #### B ADDRESSING MACHINE OPERATOR #### [facility] (DEFAULT) [address] [place] [address] Creatinine [Mass/Vol] 1.21 mg/dL Normal 0.70-1.30 [facility] Comment on above: Performed By: #### B ADDRESSING MACHINE OPERATOR #### [facility] (DEFAULT) [address] [place] [address] GFR/1.73 sq M.predicted among non-blacks MDRD (S/P/Bld) [Vol rate/Area] 69 mL/min/{1.73_m2} Normal >=60 [facility] Comment on above: Result Comment: Repo rted eGFR is based on the CKD-EPI 2020 equation using creatinine, age, and sex. Performed By: #### B ADDRESSING MACHINE OPERATOR #### [facility] (DEFAULT) [address] [place] [address] Glucose [Mass/Vol] 90 mg/dL Normal 70-99 [facility] Comment on above: Performed By: #### B ADDRESSING MACHINE OPERATOR #### [facility] (DEFAULT) [address] [place] [address] Osmolality [Osmolality] 298 mosm/kg Normal 278-305 [facility] Comment on above: Performed By: #### B ADDRESSING MACHINE OPERATOR #### [facility] (DEFAULT) [address] [place] [address] Potassium [Moles/Vol] 4.3 mmol/L Normal 3.5-5.0 [facility] Comment on above: Performed By: #### B ADDRESSING MACHINE OPERATOR #### [facility] (DEFAULT) [address] [place] [address] Sodium [Moles/Vol] 141 mmol/L Normal 135-145 [facility] Comment on above: Performed By: #### B ADDRESSING MACHINE OPERATOR #### [facility] (DEFAULT) [address] [place] [address] Urea nitrogen [Mass/Vol] 21 mg/dL Normal 7-25 [facility] Comment on above: Performed By: #### B ADDRESSING MACHINE OPERATOR #### [facility] (DEFAULT) [address] [place] [address] Urea nitrogen/Creatinine [Mass ratio] 17 mg/mg Normal [facility] Comment on above: Performed By: #### B ADDRESSING MACHINE OPERATOR #### [facility] (DEFAULT) [address] [place] [address] Cardiac echo study Procedure Ordered By: Moo Landon on 09-23-2024 Ao peak lucas 0.99 m/s [facility] Work Phone: AV LVOT peak gradient 1 mmHg [facility] Work Phone: AV peak gradient 4 mmHG [facility] Work Phone: AV Velocity Ratio 0.44 [facility] Work Phone: BRADY (continuity Vmax) 2.01 cm2 [facility] Work Phone: BRADY index (continuity Vmax) 0.84 m/s [facility] Work Phone: Avg e' pk lucas 0.05 m/s [facility] Work Phone: Avg E/e' ratio 23.85 [facility] Work Phone: Body surface area Derived from formula 2.39 m2 [facility] Work Phone: BP EF 29 % [facility] Work Phone: DI (Vmax) 0.44 [facility] Work Phone: e' lateral pk lucas 0.0400 m/s [facility] Work Phone: e' lateral pk lucas 0.04 m/s [facility] Work Phone: e' septal pk lucas 0.0500 m/s [facility] Work Phone: e' septal pk lucas 0.05 m/s [facility] Work Phone: E/e' lateral ratio 26.50 [facility] Work Phone: E/e' septal ratio 21.20 [facility] Work Phone: FS 10 % [facility] Work Phone: IVC ostium 2.27 cm [facility] Work Phone: IVS 1.00 cm [facility] Work Phone: LA ESV BP (MOD) 110 mL [facility] Work Phone: LA ESV BP (MOD) index 46 mL[facility]2 [facility] Work Phone: LA ESV SP 2CH (MOD) 90 mL [facility] Work Phone: LA ESV SP 4CH (MOD) 114 mL [facility] Work Phone: LV EDV BP 205 [facility] Work Phone: LV ESV BP 145 mL [facility] Work Phone: LV mass 233.09 g [facility] Work Phone: LV Mass Index 97.5 g/m2 [facility] Work Phone: LV RWT 0.34 [facility] Work Phone: LV stroke volume BP (ml) 60 mL [facility] Work Phone: LV stroke volume index BP 25.10 mL/m2 [facility] Work Phone: LVIDD 5.80 cm [facility] Work [facility]: LVIDS 5.20 cm [facility] Work Phone: LVOT area 4.52 cm2 [facility] Work Phone: LVOT diameter 2.40 cm [facility] Work [facility]: LVOT peak lucas 0.44 m/s [facility] Work Phone: MV pk E lucas 1.06 m/s [facility] Work Phone: [facility] ECHO LV BIPLANE SYSTOLIC VOLUME INDEX 60.67 mL/m2 [facility] Work Phone: [facility] ECHO LV BP DIASTOLIC VOLUME INDEX 85.77 mL/m2 [facility]: PV [facility] gradient [facility]: PV PK LUCAS 0.77 m/s [facility] Work Phone: PW 1.00 cm [facility] Work Phone: RA area 4CH (MOD) 28.50 cm2 [facility]: RA vol index 4CH (MOD) 46.03 mL/m2 O [facility] Work Phone: Right atrium volume 4 chamber method of disks 110 mL [facility] Work Phone: RV Area diastolic 39.00 cm2 [facility] Work Phone: RV Area systolic 26.00 cm2 [facility] Work Phone: RV basal diam 4.69 [facility] Work Phone: RV Fractional area change 33.3 % [facility] Work Phone: RV long diam 10.20 cm [facility] Work Phone: RV mid diam 2.63 cm [facility] Work Phone: RV S' 8.02 cm/s [facility] Work Phone: [facility] Work Phone: Cardiac echo study Procedure on 09-23-2024 - Left ventricle is mildly enlarged with severe global hypokinesis. Ejection fraction 25-30%. - Right ventricle is enlarged with moderately reduced function. Device wire present. - Moderate biatrial dilation. - No hemodynamically significant valvular disease. - RVSP could not be estimated. Left Ventricle Chamber size is mildly enlarged. Normal wall thickness. Global hypokinesis. Regional wall motion is normal. Ejection fraction is severely reduced (25 - 30%). Diastolic function is abnormal. Right Ventricle Right ventricle not well visualized. Chamber size is enlarged. Systolic function is moderately reduced. Device wire is present. Left Atrium Chamber size is moderately enlarged. Right Atrium Chamber size is moderately enlarged. IVC/SVC The inferior vena cava is enlarged. The inferior vena cava structure has a diameter <21 mm and decreases >50% during inspiration. The diameter is >21 mm and decreases >50% during inspiration. Mitral Valve Normal appearing leaflets. Leaflet mobility is normal. No regurgitation. No valve stenosis. Tricuspid Valve Normal leaflets. Leaflet mobility is normal. Tricuspid valve function not assessed. Pulmonary artery systolic pressure (PASP) is unable to be estimated. Aortic Valve Trileaflet valve. Mild leaflet calcification. Leaflet mobility is normal. No regurgitation. No stenosis. Pulmonic Valve Pulmonic valve not well visualized. Trace regurgitation. No stenosis. Pericardium No pericardial effusion. Septum The atrial septum is normal. Aorta No dilation to extent seen. Study Details A complete echocardiography study (including color flow Doppler, spectral Doppler, M-mode and microbubbles) was performed. Contrast indication: evaluation of left ventricle contiguous segments and evaluation of left ventricle apex. Study limitations include poor apical window and patient body habitus. Imaging system used: AddressReport. Clinical history: Previous echo done at [facility] February 2024. Hx HFrEF (EF 31%)/ NICM, CAD, PVC and bradycardia, s/p [employer], Paroxysmal A-fib s/p multiple ablations (coumadin), HTN, HLD, BRANNON, Obesity, non-hodgkin's lymphoma s/p anthracycline chemo 2006. Indications Indications for study: arrhythmia. Wall Scoring Score Index: 2.00 The left ventricular wall motion is globally hypokinetic. [facility] Radiology [facility]narrative) [facility]-23-2024 Echocardiography - Left ventricle is mildly enlarged with severe global hypokinesis. Ejection fraction 25-30%. - Right ventricle is enlarged with moderately reduced function. Device wire present. - Moderate biatrial dilation. - No hemodynamically significant valvular disease. - RVSP could not be estimated. Table formatting from the original result was not included. Images from the original result were not included. Facility [facility] Patient Information Patient Name Tania Venegas Legal Sex Male Indication for Exam Priority: Routine Dx: Nonsustained ventricular tachycardia [I47.29 (ICD-10-CM)]; Chronic combined systolic and diastolic heart failure [I50.42 (ICD-10-CM)]; ICD (implantable cardioverter-defibrilla tor) in place [Z95.810 (ICD-10-CM)] Order Question Reason for Exam chf exacerbation Interpretation Summary Result History is available. - Left ventricle is mildly enlarged with severe global hypokinesis. Ejection fraction 25-30%. - Right ventricle is enlarged with moderately reduced function. Device wire present. - Moderate biatrial dilation. - No hemodynamically significant valvular disease. - RVSP could not be estimated. Findings Left Ventricle Chamber size is mildly enlarged. Normal wall thickness. Global hypokinesis. Regional wall motion is normal. Ejection fraction is severely reduced (25 - 30%). Diastolic function is abnormal. Right Ventricle Right ventricle not well visualized. Chamber size is enlarged. Systolic function is moderately reduced. Device wire is present. Left Atrium Chamber size is moderately enlarged. Right Atrium Chamber size is moderately enlarged. Septum The atrial septum is normal. Mitral Valve Normal appearing leaflets. Leaflet mobility is normal. No regurgitation. No valve stenosis. Aortic Valve Trileaflet valve. Mild leaflet calcification. Leaflet mobility is normal. No regurgitation. No stenosis. Tricuspid Valve Normal leaflets. Leaflet mobility is normal. Tricuspid valve function not assessed. Pulmonary artery systolic pressure (PASP) is unable to be estimated. Pulmonic Valve Pulmonic valve not well visualized. Trace regurgitation. No stenosis. Aorta No dilation to extent seen. Pericardium No pericardial effusion. IVC/SVC The inferior vena cava is enlarged. The inferior vena cava structure has a diameter <21 mm and decreases >50% during inspiration. The diameter is >21 mm and decreases >50% during inspiration. Reading Providers Reading Role Read Date Moo Landon MD Echo [place] 09/23/2024 Wall Scoring Score Index: 2.00 The left ventricular wall motion is globally hypokinetic. Left Heart Measurements LV - Systole LVIDD 5.8 cm IVS 1 cm LVIDS 5.2 cm PW 1 cm LV RWT 0.34 LV Mass Index 97.5 g/m2 LV EDV BP 205 mL LV ESV BP 145 mL BP EF 29 % LV stroke volume BP (ml) 60 mL LV stroke volume index BP 25.1 mL/m2 LV - Diastole MV pk E lucas 1.06 m/s e' septal pk lucas 0.05 m/s e' lateral pk lucas 0.04 m/s Avg e' pk lucas 0.05 m/s E/e' septal ratio 21.2 E/e' lateral ratio 26.5 Avg E/e' ratio 23.85 LV - HCM AV LVOT peak gradient 1 mmHg Left Atrium LA ESV SP 4CH (MOD) 114 mL LA ESV SP 2CH (MOD) 90 mL LA ESV BP (MOD) index 46 mL/m2 Right Heart Measurements RV - 2D RV basal diam 4.69 cm RV mid diam 2.63 cm RV long diam 10.2 cm RV Area diastolic 39 cm2 RV Area systolic 26 cm2 RV Fractional area change 33.3 % RV - Doppler RV S' 8.02 cm/s Right Atrium RA vol index 4CH (MOD) 46.03 mL/m2 RA area 4CH (MOD) 28.5 cm2 Great Vessels Inferior Vena Cava IVC ostium 2.27 cm Doppler Measurements - Aortic Valve Stenosis LVOT diameter 2.4 cm LVOT area 4.52 cm2 LVOT peak lucas 0.44 m/s Ao peak lucas 0.99 m/s AV peak gradient 4 mmHG DI (Vmax) 0.44 BRADY (continuity Vmax) 2.01 cm2 BRADY index (continuity Vmax) 0.84 m/s Doppler Measurements - Mitral Valve Stenosis MV pk E lucas 1.06 m/s PISA-MS MV pk E lucas 1.06 m/s Doppler Measurements - Tricuspid Valve Stenosis IVC ostium 2.27 cm Doppler Measurements - Pulmonic Valve Stenosis PV PK LUCAS 0.77 m/s PV peak gradient 2 mmHg Vitals Height Weight BSA (Calculated - sq m) BP Pulse 1.854 m (6' 0.99 ) 116.5 kg (256 lb 13.4 oz) 2.39 m2 122/78 89 Performing Staff Trent Walker RDCS Study Details A complete echocardiography study (including color flow Doppler, spectral Doppler, M-mode and microbubbles) was performed. Contrast indication: evaluation of left ventricle contiguous segments and evaluation of left ventricle apex. Study limitations include poor apical window and patient body habitus. Imaging system used: AddressReport. Clinical history: Previous echo done at [facility] February 2024. Hx HFrEF (EF (more content not included)... Normal [facility] INTERLEUKIN 2 RECEPTORon INTERLEUKIN 2 RECEPTOR (IL2R) 466.3 pg/mL Normal 175.3-858.2 [facility] Comment on above: Result Comment: INTE RPRETIVE INFORMATION: Cytokines Results are used to understand the pathophysiology of immune, infectious, or inflammatory disorders, or may be used for research purposes. This test was developed and its performance characteristics determined by [facility]. It has not been cleared or approved by the [place] Food and Drug Administration. This test was performed in a CLIA certified laboratory and is intended for clinical purposes. Test Performed by: [facility] [address] [place] [address] Performed By: #### B ADDRESSING MACHINE OPERATOR #### [facility] (DEFAULT) [address] [place] [address] IONIZED CALCIUM, WHOLE BLOOD Ordered By: Arnav Parmar on 09-23-2024 Calcium.ionized (Bld) [Moles/Vol] 4.39 mg/dL Low 4.60 - 5.30 mg/dL [facility] Interpretation and review of laboratory results Abnormal [facility] IONIZED CALCIUM, WHOLE BLOOD on 09-23-2024 ICA 4.39 mg/dL Low 4.60-5.30 [facility] Comment on above: Performed By: #### P TPTT #### [facility] (DEFAULT) [address] [place] [address] 35886 LYSOZYME (MURAMIDASE)on 08-27 LYSOZYME (MURAMIDASE) 7.5 mcg/mL High 2.6-6.0 [facility] Comment on above: Result Comment: ADDITIONAL INFORMATION This test was developed and its performance characteristics determined by [facility] in a manner consistent with CLIA requirements. This test has not been cleared or approved by the U.S. Food and Drug Administration. Test Performed by: [facility] [place] [address] Compressor Operator: Drake Kelsey Ph.D.; CLIA# [id number] Performed By: #### X M #### [facility] (DEFAULT) [address] [place] [address] 46281 SEDIMENTATION RATE, AUTOMATE Don 09-23-2024 ESR (Bld) [Velocity] 31 mm/h High NINF [facility] Interpretation and review of laboratory results Abnormal [facility] ESR Westergren 31 mm/hr High <20 [facility] Comment on above: Performed By: #### L [id number] #### [facility] (DEFAULT) [address] [place] [address] 76499 TSHon 09-23-2024 Interpretation and review of laboratory results Normal [facility] TSH Qn 2.789 m[IU]/L [facility] TSH 2.789 uIU/mL Normal 0.550-4.780 [facility] Comment on above: Performed By: #### P TPTT #### [facility] (DEFAULT) [address] [place] [address] 41917 TYPE AND SCREENon 09-23-2024 ABO/RH(D) TYPE Positive [facility] Outdate Specimen 09/26/2024 23:59 [facility] ABO/RH(D) TYPE Positive Normal [facility] Comment on above: Performed By: #### X M #### [facility] (DEFAULT) [address] [place] [address] Outdate Specimen 09/26/2024 23:59 Normal [facility] Comment on above: Performed By: #### X M #### [facility] (DEFAULT) [address] [place] [address] 29413 B-TYPE NATRIURETIC PEPTIDE ( BRAIN)on 09-22-2024 Interpretation and review of laboratory results Abnormal [facility] Natriuretic peptide B (Bld) [Mass/Vol] 871 pg/mL High 0 - 100 pg/mL [facility] Natriuretic peptide B (Bld) [Mass/Vol] 871 pg/mL High 0-100 [facility] Comment on above: Performed By: #### L [id number] #### [facility] (DEFAULT) [address] [place] [address] 82770 CALCIUMon 09-22-2024 Calcium [Mass/Vol] 8.7 mg/dL 8.6 - 10. 5 mg/dL [facility] Calcium [Mass/Vol] 8.7 mg/dL Normal 8.6-10.5 [facility] Comment on above: Performed By: #### L [id number] #### [facility] (DEFAULT) [address] [place] [address] 98620 CBC AND ELECTRONIC DIFFon Basophils (Bld) [#/Vol] 0.04 10*3/uL 0.00 - 0.09 K/uL [facility] Basophils/100 WBC (Bld) 0.5 % [facility] Differential cell count method Nom (Bld) Electronic Differential [facility] Eosinophils (Bld) [#/Vol] 0.11 10*3/uL 0.00 - 0.48 K/uL [facility] Eosinophils/100 WBC (Bld) 1.4 % [facility] Erythrocyte distribution width (RBC) [Ratio] 15.1 % High 10.9 - 14.3 % [facility] Hematocrit (Bld) [Volume fraction] 37.1 % Low 39.6 - 48.8 % [facility] Hemoglobin (Bld) [Mass/Vol] 11.8 g/dL Low 13.4 - 16.8 g/dL [facility] Immature granulocytes (Bld) [#/Vol] K/uL NINF - 0.07 K/uL [facility] Immature granulocytes/100 WBC (Bld) 0.4 % [facility] Interpretation and review of laboratory results Abnormal [facility] Lymphocytes (Bld) [#/Vol] 1.45 10*3/uL 0.83 - 3.57 K/uL [facility] Lymphocytes/100 WBC (Bld) 18.5 % [facility] MCH (RBC) [Entitic mass] 29.9 pg 26.1 - 33.3 pg [facility] MCHC (RBC) [Mass/Vol] 31.8 g/dL Low 31.9 - 36.5 g/dL [facility] MCV (RBC) [Entitic vol] 94.2 fL 79.0 - 94.5 fL [facility] Monocytes (Bld) [#/Vol] 0.87 10*3/uL 0.24 - 0.93 K/uL [facility] Monocytes/100 WBC (Bld) 11.1 % [facility] Neutrophils (Bld) [#/Vol] 5.34 10*3/uL 1.57 - 6.19 K/uL [facility] Nucleated RBC/100 WBC (Bld) [Ratio] 0.0 % [facility] Platelet mean volume (Bld) [Entitic vol] 10.6 fL 8.7 - 12.3 fL [facility] Platelets (Bld) [#/Vol] 230 10*3/uL 146 - 337 K/uL [facility] RBC (Bld) [#/Vol] 3.94 10*6/uL Low [facility] Segmented neutrophils/100 WBC (Bld) 68.1 % [facility] WBC (Bld) [#/Vol] 7.84 10*3/uL 3.73 - 10. 10 K/uL [facility] Basophils (Bld) [#/Vol] 0.04 10*3/uL Normal 0.00-0.09 [facility] Comment on above: Performed By: #### T SH, FT4 #### [facility] (DEFAULT) [address] [address] Basophils/100 WBC (Bld) 0.5 % Normal [facility] Comment on above: Performed By: #### T SH, FT4 #### [facility] (DEFAULT) [address] [address] DIFF STATUS Electronic Differential Normal [facility] Comment on above: Performed By: #### T SH, FT4 #### [facility] (DEFAULT) [address] [address] Eosinophils (Bld) [#/Vol] 0.11 10*3/uL Normal 0.00-0.48 [facility] Comment on above: Performed By: #### T SH, FT4 #### [facility] (DEFAULT) [address] [address] Eosinophils/100 WBC (Bld) 1.4 % Normal [facility] Comment on above: Performed By: #### T SH, FT4 #### [facility] (DEFAULT) [address] [address] Hematocrit (Bld) [Volume fraction] 37.1 % Low 39.6-48.8 [facility] Comment on above: Performed By: #### T SH, FT4 #### [facility] (DEFAULT) [address] [address] Hemoglobin (Bld) [Mass/Vol] 11.8 g/dL Low 13.4-16.8 [facility] Comment on above: Performed By: #### Denny CABRERA, FT4 #### [facility] (DEFAULT) [address] [address] Immature Grans % 0.4 % Normal [facility] Comment on above: Performed By: #### Denny CABRERA, FT4 #### [facility] (DEFAULT) [address] [address] Immature Grans Absolute < Normal <=0.07 [facility] Comment on above: Performed By: #### Denny CABRERA, FT4 #### [facility] (DEFAULT) [address] [address] Lymphocytes (Bld) [#/Vol] 1.45 10*3/uL Normal 0.83-3.57 [facility] Comment on above: Performed By: #### Denny CABRERA, FT4 #### [facility] (DEFAULT) [address] [address] Lymphocytes/100 WBC (Bld) 18.5 % Normal [facility] Comment on above: Performed By: #### Denny CABRERA, FT4 #### [facility] (DEFAULT) [address] [address] MCV (RBC) [Entitic vol] 94.2 fL Normal 79.0-94.5 [facility] Comment on above: Performed By: #### Denny CABRERA, FT4 #### [facility] (DEFAULT) [address] [address] Mean Cell Hgb 29.9 pg Normal 26.1-33.3 [facility] Comment on above: Performed By: #### Denny CABRERA, FT4 #### [facility] (DEFAULT) [address] [address] Mean Cell Hgb Conc 31.8 g/dL Low 31.9-36.5 [facility] Comment on above: Performed By: #### T SH, FT4 #### [facility] (DEFAULT) [address] [place] [address] 35036 Monocytes (Bld) [#/Vol] 0.87 10*3/uL Normal 0.24-0.93 [facility] Comment on above: Performed By: #### T SH, FT4 #### [facility] (DEFAULT) [address] [place] [address] 11668 Monocytes/100 WBC (Bld) 11.1 % Normal [facility] Comment on above: Performed By: #### T SH, FT4 #### [facility] (DEFAULT) [address] [address] Nucleated RBC 0.0 /100 WBC Normal <=0.2 [facility] Comment on above: Performed By: #### T SH, FT4 #### [facility] (DEFAULT) [address] [place] [address] Platelet mean volume (Bld) [Entitic vol] 10.6 fL Normal 8.7-12.3 [facility] Comment on above: Performed By: #### T SH, FT4 #### [facility] (DEFAULT) [address] [address] Platelets (Bld) [#/Vol] 230 10*3/uL Normal 146-337 [facility] Comment on above: Performed By: #### T SH, FT4 #### [facility] (DEFAULT) [address] [place] [address] 32699 RBC (Bld) [#/Vol] 3.94 10*6/uL Low 4.38-5.83 [facility] Comment on above: Performed By: #### T SH, FT4 #### [facility] (DEFAULT) [address] [address] RBC Distribution 15.1 % High 10.9-14.3 [facility] Comment on above: Performed By: #### T SH, FT4 #### [facility] (DEFAULT) [address] [place] [address] 42879 Segs + Bands Auto 68.1 % Normal [facility] Comment on above: Performed By: #### T DEBORAH, FT4 #### [facility] (DEFAULT) [address] [place] [address] Segs + Bands,Absolute Auto 5.34 K/uL Normal 1.57-6.19 [facility] Comment on above: Performed By: #### T DEBORAH, FT4 #### [facility] (DEFAULT) [address] [place] [address] 33448 WBC (Bld) [#/Vol] 7.84 10*3/uL Normal 3.73-10.10 [facility] Comment on above: Performed By: #### T DEBORAH, FT4 #### [facility] (DEFAULT) [address] [place] [address] 47572 CHEM 7 (LYTES,BUN,CREA,GLUC) on 09-22-2024 Anion gap [Moles/Vol] 16 mmol/L 7 - 17 mmol/L [facility] Chloride [Moles/Vol] 103 mmol/L 98 - 10 8 mmol/L [facility] CO2 [Moles/Vol] 24 mmol/L 21 - 31 mmol/L [facility] Creatinine [Mass/Vol] 1.28 mg/dL 0.70 - 1.30 mg/dL [facility] eGFR, CKD-EPI, Male 64 - PINF [facility] Comment on above: Reported eGFR is bas ed on the CKD-EPI 2020 equation using creatinine, age, and sex. Glucose [Mass/Vol] 96 mg/dL 70 - 99 mg/dL [facility] Osmolality Calc [facility]olality] [facility] Potassium [Moles/Vol] 3.8 mmol/L 3.5 - 5.0 mmol/L [facility] Sodium [Moles/Vol] 139 mmol/L 135 - 145 mmol/L [facility] Urea nitrogen [Mass/Vol] 20 mg/dL 7 - 25 mg/dL [facility] Urea nitrogen/Creatinine [Mass ratio] 16 mg/mg [facility] Anion gap [Moles/Vol] 16 mmol/L Normal 7-17 [facility] Comment on above: Performed By: #### L [id number] #### [facility] (DEFAULT) [address] [place] [address] 10502 Chloride [Moles/Vol] 103 mmol/L Normal 98-108 [facility] Comment on above: Performed By: #### L [id number] #### [facility] (DEFAULT) [address] [place] [address] 38462 CO2 [Moles/Vol] 24 mmol/L Normal 21-31 [facility] Comment on above: Performed By: #### L [id number] #### [facility] (DEFAULT) [address] [place] [address] 09778 Creatinine [Mass/Vol] 1.28 mg/dL Normal 0.70-1.30 [facility] Comment on above: Performed By: #### L AB980 #### [facility] (DEFAULT) [address] [place] [address] 54917 GFR/1.73 sq M.predicted among non-blacks MDRD (S/P/Bld) [Vol rate/Area] 64 mL/min/{1.73_m2} Normal >=60 [facility] Comment on above: Result Comment: Repo rted eGFR is based on the CKD-EPI 2020 equation using creatinine, age, and sex. Performed By: #### L AB980 #### [facility] (DEFAULT) [address] [place] [address] Glucose [Mass/Vol] 96 mg/dL Normal 70-99 [facility] Comment on above: Performed By: #### L [id number] #### [facility] (DEFAULT) [address] [place] [address]161 Osmolality [Osmolality] 293 mosm/kg Normal 278-305 [facility] Comment on above: Performed By: #### L [id number] #### [facility] (DEFAULT) [address] [place] [address] Potassium [Moles/Vol] 3.8 mmol/L Normal 3.5-5.0 [facility] Comment on above: Performed By: #### L AB980 #### [facility] (DEFAULT) [address] [place] [address] Sodium [Moles/Vol] 139 mmol/L Normal 135-145 [facility] Comment on above: Performed By: #### L AB980 #### [facility] (DEFAULT) [address] [place] [address] Urea nitrogen [Mass/Vol] 20 mg/dL Normal 7-25 [facility] Comment on above: Performed By: #### L AB980 #### [facility] (DEFAULT) [address] [place] [address] Urea nitrogen/Creatinine [Mass ratio] 16 mg/mg Normal [facility] Comment on above: Performed By: #### L AB980 #### [facility] (DEFAULT) [address] [place] [address] 80398 HIGH SENSITIVITY TROPONIN I - SINGLE ORDERon 09-22-2024 Interpretation and review of laboratory results Normal [facility] Troponin I.cardiac High sensitivity method [Mass/Vol] 21 ng/L NINF - 53 ng/L [facility] hs-Troponin I 21 ng/L Normal <53 [facility] Comment on above: Order Comment: Acute Coronary Syndrome (ACS): Initial Evaluation and Management:[email or web address]%[email or web address] Performed By: #### L [id number] #### [facility] (DEFAULT) [address] [place] [address] MAGNESIUMon 09-22-2024 Magnesium [Mass/Vol] 1.8 mg/dL 1.6 - 2 .6 mg/dL [facility] Magnesium [Mass/Vol] 1.8 mg/dL Normal 1.6-2.6 [facility] Comment on above: Performed By: #### L [id number] #### [facility] (DEFAULT) [address] [place] [address]70 No Panel Informationon 09-22 Interpretation and review of laboratory results Normal [facility] PT,INR,PTTon 09-22-2024 aPTT Coag (PPP) [Time] 33.8 s OS [facility] INR Coag (Bld) [Relative time] 1.9 {INR} High 0.9 - 1.1 [facility] Interpretation and review of laboratory results Abnormal [facility] PT Coag (PPP) [Time] 22.0 s High [facility] aPTT Coag (Bld) [Time] 33.8 s Normal 24.0-34.3 [facility] Comment on above: Performed By: #### T SH, FT4 #### [facility] (DEFAULT) [address] [place] [address] INR Coag (PPP) [Relative time] 1.9 {INR} High 0.9-1.1 [facility] Comment on above: Performed By: #### T SH, FT4 #### [facility] (DEFAULT) [address] [place] [address] PT Coag (PPP) [Time] 22.0 s High 11.9-14.2 [facility] Comment on above: Performed By: #### T SH, FT4 #### [facility] (DEFAULT) [address] [place] [address] DEVICE EVALUATION (SCANNED)o n 09-08-2024 [facility] Radiology Study observation (narrative) [facility] DEVICE EVALUATION (SCANNED)o n 08-09-2024 [facility] Radiology Study observation (narrative) [facility] DEVICE EVALUATION (SCANNED)o n 08-04-2024 [facility] Radiology Study observation (narrative) [facility] B-TYPE NATRIURETIC PEPTIDE ( BRAIN)on 07-21-2024 Interpretation and review of laboratory results Abnormal [facility] Natriuretic peptide B (Bld) [Mass/Vol] 434 pg/mL High 0 - 100 pg/mL [facility] Natriuretic peptide B (Bld) [Mass/Vol] 434 pg/mL High 0-100 [facility] Comment on above: Performed By: #### B ADDRESSING MACHINE OPERATOR #### [facility] (DEFAULT) [address] [place] [address] CHEM 6 (LYTES, BUN CREA)on 0 07-21-2024 Anion gap [Moles/Vol] 14 mmol/L 7 - 17 mmol/L [facility] Chloride [Moles/Vol] 104 mmol/L 98 - 10 8 mmol/L [facility] CO2 [Moles/Vol] 25 mmol/L 21 - 31 mmol/L [facility] Creatinine [Mass/Vol] 1.36 mg/dL High 0.70 - 1.30 mg/dL [facility] eGFR, CKD-EPI, Male 60 - PINF [facility] Comment on above: Reported eGFR is bas ed on the CKD-EPI 2020 equation using creatinine, age, and sex. Interpretation and review of laboratory results Abnormal [facility] Potassium [Moles/Vol] 4.3 mmol/L 3.5 - 5.0 mmol/L [facility] Sodium [Moles/Vol] 139 mmol/L 135 - 145 mmol/L [facility] Urea nitrogen [Mass/Vol] 23 mg/dL 7 - 25 mg/dL [facility] Urea nitrogen/Creatinine [Mass ratio] 17 mg/mg [facility] Anion gap [Moles/Vol] 14 mmol/L Normal 7-17 [facility] Comment on above: Performed By: #### X MPO #### [facility] (DEFAULT) [address] [place] [address] Chloride [Moles/Vol] 104 mmol/L Normal 98-108 [facility] Comment on above: Performed By: #### X MPO #### [facility] (DEFAULT) [address] [place] [address]81 CO2 [Moles/Vol] 25 mmol/L Normal 21-31 [facility] Comment on above: Performed By: #### X MPO #### [facility] (DEFAULT) [address] [place] [address] Creatinine [Mass/Vol] 1.36 mg/dL High 0.70-1.30 [facility] Comment on above: Performed By: #### X MPO #### [facility] (DEFAULT) [address] [place] [address] 13071 GFR/1.73 sq M.predicted among non-blacks MDRD (S/P/Bld) [Vol rate/Area] 60 mL/min/{1.73_m2} Normal >=60 [facility] Comment on above: Result Comment: Repo rted eGFR is based on the CKD-EPI 2020 equation using creatinine, age, and sex. Performed By: #### X MPO #### [facility] (DEFAULT) [address] [place] [address] Potassium [Moles/Vol] 4.3 mmol/L Normal 3.5-5.0 [facility] Comment on above: Performed By: #### X MPO #### [facility] (DEFAULT) [address] [place] [address] Sodium [Moles/Vol] 139 mmol/L Normal 135-145 [facility] Comment on above: Performed By: #### X MPO #### [facility] (DEFAULT) [address] [address] Urea nitrogen [Mass/Vol] 23 mg/dL Normal 7-25 [facility] Comment on above: Performed By: #### X MPO #### [facility] (DEFAULT) [address] [place] [address] Urea nitrogen/Creatinine [Mass ratio] 17 mg/mg Normal [facility] Comment on above: Performed By: #### X MPO #### [facility] (DEFAULT) [address] [place] [address] DEVICE EVALUATION (SCANNED)o n 07-21-2024 [facility] Radiology Study observation (narrative) [facility] ALP ALT Manuel 07-09-2024 ALP [Catalytic activity/Vol] 78 U/L Normal 32-126 [facility] Comment on above: Performed By: #### X M #### [facility] (DEFAULT) [address] [place] [address] 11311 ALT [Catalytic activity/Vol] 9 U/L Low 10-52 [facility] Comment on above: Performed By: #### X M #### [facility] (DEFAULT) [address] [place] [address] 47010 AST [Catalytic activity/Vol] 20 U/L Normal 10-39 [facility] Comment on above: Performed By: #### X M #### [facility] (DEFAULT) [address] [place] [address] B-TYPE NATRIURETIC PEPTIDE ( BRAIN)on 07-09-2024 Natriuretic peptide B (Bld) [Mass/Vol] 347 pg/mL High 0-100 [facility] Comment on above: Performed By: #### T SH, FT4 #### [facility] (DEFAULT) [address] [place] [address] CHEM 6 (LYTES, BUN CREA)on 0 07-09-2024 Anion gap [Moles/Vol] 15 mmol/L Normal 7-17 [facility] Comment on above: Performed By: #### X M #### [facility] (DEFAULT) [address] [place] [address] Chloride [Moles/Vol] 103 mmol/L Normal 98-108 [facility] Comment on above: Performed By: #### X M #### [facility] (DEFAULT) [address] [place] [address]886 CO2 [Moles/Vol] 26 mmol/L Normal 21-31 [facility] Comment on above: Performed By: #### X M #### [facility] (DEFAULT) [address] [place] [address]27 Creatinine [Mass/Vol] 1.13 mg/dL Normal 0.70-1.30 [facility] Comment on above: Performed By: #### X M #### [facility] (DEFAULT) [address] [place] [address] 45887 GFR/1.73 sq M.predicted among non-blacks MDRD (S/P/Bld) [Vol rate/Area] 75 mL/min/{1.73_m2} Normal >=60 [facility] Comment on above: Result Comment: Repo rted eGFR is based on the CKD-EPI 2020 equation using creatinine, age, and sex. Performed By: #### X M #### [facility] (DEFAULT) [address] [place] [address]53 Potassium [Moles/Vol] 4.2 mmol/L Normal 3.5-5.0 [facility] Comment on above: Performed By: #### X M #### [facility] (DEFAULT) [address] [place] [address] 30534 Sodium [Moles/Vol] 140 mmol/L Normal 135-145 [facility] Comment on above: Performed By: #### X M #### [facility] (DEFAULT) [address] [place] [address] 6[address] Urea nitrogen [Mass/Vol] 21 mg/dL Normal 7-25 [facility] [facility] Comment on above: Performed By: #### X M #### [facility] (DEFAULT) [address] [place] [address] 75025 Urea nitrogen/Creatinine [Mass ratio] 19 mg/mg Normal [facility] Comment on above: Performed By: #### X M #### [facility] (DEFAULT) [address] [place] [address] 77102 MAGNESIUMon 07-09-2024 Magnesium [Mass/Vol] 1.8 mg/dL Normal 1.6-2.6 [facility] Comment on above: Performed By: #### X M #### [facility] (DEFAULT) [address] [place] [address] 10318 TSH W/FT4 REFLEXon 4 TSH 1.821 uIU/mL Normal 0.550-4.780 [facility] Comment on above: Performed By: #### T SHQR ####[facility] (DEFAULT)[address] [place] [address] 19621 DEVICE EVALUATION (SCANNED)o n 06-30-2024 [facility] Radiology Study observation (narrative) [facility] DEVICE EVALUATION (SCANNED)o n 06-19-2024 [facility] Radiology Study observation (narrative) [facility] EP CARDIOVERSION EXTERNALon 06-14-2024 EP CARDIOVERSION EXTERNAL Successful cardioversion of atrial flutter to normal sinus rhythm Recommendations: Continue anticoagulation Table formatting from the original result was not included. Tania Venegas EP Procedure - EPS/Ablation/Device Ordering Physician: ALEXANDER COX Order #: [id number] Study Date: 06/12/2024 Patient Information Name MRN Description Tania Venegas [id number] 58 y.o. male Physicians Panel Physicians Referring Physician Case Authorizing Physician MICKEY Grace (Primary) Alexander Cox MD Procedures Cardioversion Pre Procedure Diagnosis Atrial fibrillation, unspecified type [I48.91] Post Procedure Diagnosis Atrial fibrillation, unspecified type [I48.91] Indications Atrial fibrillation, unspecified type [I48.91 (ICD-10-CM)] Conclusion Successful cardioversion of atrial flutter to normal sinus rhythm Recommendations: Continue anticoagulation Consent The procedure was explained including the potential risks of infection, heart perforation, re-operation, and other risks pertinent to procedure. Informed consent and permission to proceed was given. Cardioversion/Defibrill ation Arrhythmia Type: atrial flutter. Method of Cardioversion: synchronous cardioversion. The arrhythmia was terminated. Energy shock delivered: 200 joules. Time shock delivered: 10:25 EDT. Post cardioversion rhythm: sinus rhythm. No early return to atrial fibrillation (ERAF). No immediate return to atrial fibrillation (IRAF). Implants No implant documentation for this case. Measurements BSA: 2.44 m2 Sedation Time Moderate sedation was performed on the patient. Patient was monitored by independent personnel for the duration of the procedure under the direct supervision of the physician for a total time of approximately 2 minutes. Please refer to the procedure log for information on medications given during the procedure. Electrophysiology Lab Attending Physician Statement and Signature I personally preformed and/or personally supervised and was present for this entire procedure, including the review and interpretation of all electrophysiologic tracings acquired during the course of this study. The medications listed have been ordered by me, and have been administered under my direct supervision. Signed at 2339 EDT ABN Associated with this Order There is no ABN associated with this order. Normal [facility] CHEM 7 (LYTES,BUN,CREA,GLUC) on 06-12-2024 Anion gap [Moles/Vol] 15 mmol/L 7 - 17 mmol/L [facility] Chloride [Moles/Vol] 102 mmol/L 98 - 10 8 mmol/L [facility] CO2 [Moles/Vol] 25 mmol/L 21 - 31 mmol/L [facility] Creatinine [Mass/Vol] 1.25 mg/dL 0.70 - 1.30 mg/dL [facility] eGFR, CKD-EPI, Male 67 - PINF [facility] Comment on above: Reported eGFR is bas ed on the CKD-EPI 2020 equation using creatinine, age, and sex. Glucose [Mass/Vol] 99 mg/dL 70 - 99 mg/dL [facility] Osmolality Calc [Osmolality] 290 [facility] Potassium [Moles/Vol] 3.7 mmol/L 3.5 - 5.0 mmol/L [facility] Sodium [Moles/Vol] 138 mmol/L 135 - 145 mmol/L [facility] Urea nitrogen [Mass/Vol] 18 mg/dL 7 - 25 mg/dL [facility] Urea nitrogen/Creatinine [Mass ratio] 14 mg/mg [facility] Anion gap [Moles/Vol] 15 mmol/L Normal 7-17 [facility] Comment on above: Performed By: #### T DEBORAH, FT4 #### [facility] (DEFAULT) [address] [place] [address] 46295 Chloride [Moles/Vol] 102 mmol/L Normal 98-108 [facility] Comment on above: Performed By: #### T DEBORAH, FT4 #### [facility] (DEFAULT) [address] [place] [address] 57440 CO2 [Moles/Vol] 25 mmol/L Normal 21-31 [facility] Comment on above: Performed By: #### T DEBORAH, FT4 #### [facility] (DEFAULT) [address] [place] [address] 10032 Creatinine [Mass/Vol] 1.25 mg/dL Normal 0.70-1.30 [facility] Comment on above: Performed By: #### T DEBORAH, FT4 #### [facility] (DEFAULT) [address] [place] [address] 74123 GFR/1.73 sq M.predicted among non-blacks MDRD (S/P/Bld) [Vol rate/Area] 67 mL/min/{1.73_m2} Normal >=60 [facility] Comment on above: Result Comment: Repo rted eGFR is based on the CKD-EPI 2020 equation using creatinine, age, and sex. Performed By: #### T DEBORAH, FT4 #### [facility] (DEFAULT) [address] [place] [address] 64427 Glucose [Mass/Vol] 99 mg/dL Normal 70-99 [facility] Comment on above: Performed By: #### T DEBORAH, FT4 #### [facility] (DEFAULT) [address] [place] [address] 23815 Osmolality [Osmolality] 290 mosm/kg Normal 278-305 [facility] Comment on above: Performed By: #### T DEBORAH, FT4 #### [facility] (DEFAULT) [address] [place] [address] 33975 Potassium [Moles/Vol] 3.7 mmol/L Normal 3.5-5.0 [facility] Comment on above: Performed By: #### T SH, FT4 #### [facility] (DEFAULT) [address] [place] [address] 67691 Sodium [Moles/Vol] 138 mmol/L Normal 135-145 [facility] Comment on above: Performed By: #### T SH, FT4 #### [facility] (DEFAULT) [address] [place] [address] 89597 Urea nitrogen [Mass/Vol] 18 mg/dL Normal 7-25 [facility] Comment on above: Performed By: #### T SH, FT4 #### [facility] (DEFAULT) [address] [place] [address] 07241 Urea nitrogen/Creatinine [Mass ratio] 14 mg/mg Normal [facility] Comment on above: Performed By: #### T SH, FT4 #### [facility] (DEFAULT) [address] [place] [address] 97483 CREAT/GFRon 06-12-2024 Creatinine [Mass/Vol] 1.24 mg/dL 0.70 - 1.30 mg/dL [facility] GFR/1.73 sq M.predicted CKD-EPI (S/P/Bld) [Vol rate/Area] 67 - PINF [facility] Comment on above: Reported eGFR is bas ed on the CKD-EPI 2020 equation using creatinine, age, and sex. Interpretation and review of laboratory results Normal [facility] Test performed at address of the patient encounter. [facility] CT CARDIAC PULMONARY VENOGRA [facility] 06-12-2024 CT CARDIAC PULMONARY VENOGRAM [facility] CT Report Name: TANIA VENEGAS : 1965 Scan Date: 2024-06-12 08:10:13 Electronically signed by Guzman Eldridge 08:43:29 VITALS HEIGHT: 73 in (185.42 cm) WEIGHT: 265.00 lbs (120.20 kgs) BSA: 2.43 m^2 BMI: 35 kg/m^2 BP: 132 / 91 mmHg BASELINE HR: 81 BPM FINAL 1. No thrombus seen within the left atrial appendage or cardiac chambers. 2. Normal variant pulmonary venous anatomy without stenosis. 3. Coronary artery calcifications, small left sided pleural effusion, and other incidental findings noted below. CARDIAC CT PULMONARY VENOGRAM / LEFT ATRIAL ASSESSMENT 58 year old man with persistent AF anticipating cardioversion, also with CHB and PPM, recent robotic assisted thoracoscopic sympathectomy for VT on 05/25/2024, hypertension, BRANNON. FINDINGS 1. There are 5 pulmonary veins (PV) draining to the left atrium (LA). RUPV demonstrates early branching, and there is a separately arising right middle vein. 2. There is no LA, RA or RUBEN thrombus by first pass and delayed images. Prominent pectinate muscle is seen in the RUBEN. 3. Heavy coronary calcification is seen. However, the study is not optimized for coronary calcification detection or for luminal stenosis evaluation. 4. The ascending aorta is normal in size measuring 34 x 34 mm at the PA bifurcation. The main pulmonary artery measures 27 mm diameter which is normal in size. Calcification seen in mitral valve, aortic root. Extra cardiac findings: limited field of view. Chest Wall: no major deformity. Mediastinum: prominent lymph nodes with none measuring greater than 1 cm Liss: normal, without adenopathy. Pleural Spaces: small left sided pleural effusion. Lung Parenchyma: Scattered airspace opacifications in the GEOFFREY, and subsegmental atelectasis noted. Abdomen: Normal . STUDY QUALITY: Study quality is good. SCAN INFO TEST TYPE: Venogram SCANNER TRAIN ELECTRONIC TECHNICIAN: [employer] SCANNER MODEL: NAEOTOM Alpha DOSE REDUCTION ALGORITHM: Helical with dose modulation SCAN COVERAGE ZONE: Pulmonary Veins/RUBEN EKG GATED: No GENERAL CONTRAST AGENT CONTRAST AGENT USED?: Yes TYPE: Omnipaque 350 DOSE: 50 ml RATE: 4 ml/s ROUTE: IV ARM: Left BOLUS TECHNIQUE: Biphasic SCAN DELAY TIME METHOD: Bolus Track SERUM CREATININE: 1.24 mg/dL GFR: 63.64 ml/min/1.73m^2 CREATININE DATE: CT CONTRAST REACTION: None RADIATION DOSE DLP: 291 SETUP DATE OF EVENT: SCAN TYPE: Clinical PATIENT TYPE: Outpatient REASON(S) FOR SCAN: EP procedure planning REFERRING PHYSICIAN: 1) Alexander Cox MD FELLOW: ANJELICA Jameson MD NURSE: Natalie Albrecht ATTENDING PHYSICIAN: TANIA ELDRIDGE MD TECHNOLOGIST: Judith Delarosa Patient Account [id number] CPT Codes 16671 ICD10 Codes I48.91 Report generated by [employer], a product of [employer] Normal [facility] Chest>Heart.atrium.left+Pulm onary veins CT angiogram and 3D reconstruction W contrast [place] 06-12-[address] [facility] [address] Report Name: TANIA VENEGAS : 1965 Scan Date: 2024-06-12 08:10:13 Electronically signed by Guzman Eldridge 08:43:29 VITALS HEIGHT: 73 in (185.42 cm) WEIGHT: 265.00 lbs (120.20 kgs) BSA: 2.43 m^2 BMI: 35 kg/m^2 BP: 132 / 91 mmHg BASELINE HR: 81 BPM FINAL IMPRESSION 1. No thrombus seen within the left atrial appendage or cardiac chambers. 2. Normal variant pulmonary venous anatomy without stenosis. 3. Coronary artery calcifications, small left sided pleural effusion, and other incidental findings noted below. CARDIAC CT PULMONARY VENOGRAM / LEFT ATRIAL ASSESSMENT 58 year old man with persistent AF anticipating cardioversion, also with CHB and PPM, recent robotic assisted thoracoscopic sympathectomy for VT on 05/25/2024, hypertension, BRANNON. FINDINGS 1. There are 5 pulmonary veins (PV) draining to the left atrium (LA). RUPV demonstrates early branching, and there is a separately arising right middle vein. 2. There is no LA, RA or RUBEN thrombus by first pass and delayed images. Prominent pectinate muscle is seen in the RUBEN. 3. Heavy coronary calcification is seen. However, the study is not optimized for coronary calcification detection or for luminal stenosis evaluation. 4. The ascending aorta is normal in size measuring 34 x 34 mm at the PA bifurcation. The main pulmonary artery measures 27 mm diameter which is normal in size. Calcification seen in mitral valve, aortic root. Extra cardiac findings: limited field of view. Chest Wall: no major deformity. Mediastinum: prominent lymph nodes with none measuring greater than 1 cm Liss: normal, without adenopathy. Pleural Spaces: small left sided pleural effusion. Lung Parenchyma: Scattered airspace opacifications in the GEOFFREY, and subsegmental atelectasis noted. Abdomen: Normal . STUDY QUALITY: Study quality is good. SCAN INFO TEST TYPE: Venogram SCANNER TRAIN ELECTRONIC TECHNICIAN: [employer] SCANNER MODEL: NAEOTOM [employer] DOSE REDUCTION ALGORITHM: Helical with dose modulation SCAN COVERAGE ZONE: Pulmonary Veins/RUBEN EKG GATED: No GENERAL CONTRAST AGENT CONTRAST AGENT USED?: Yes TYPE: Omnipaque 350 DOSE: 50 ml RATE: 4 ml/s ROUTE: IV ARM: Left BOLUS TECHNIQUE: Biphasic SCAN DELAY TIME METHOD: Bolus Track SERUM CREATININE: 1.24 mg/dL GFR: 63.64 ml/min/1.73m^2 CREATININE DATE: CT CONTRAST REACTION: None RADIATION DOSE DLP: 291 SETUP DATE OF EVENT: SCAN TYPE: Clinical PATIENT TYPE: Outpatient REASON(S) FOR SCAN: EP procedure planning REFERRING PHYSICIAN: 1) Alexander Cox MD FELLOW: ANJELICA Jameson MD NURSE: Natalie Albrecht ATTENDING PHYSICIAN: TANIA ELDRIDGE MD TECHNOLOGIST: Judith Delarosa Patient Account [id number] CPT Codes 20274 ICD10 Codes I48.91 Report generated by [employer], a product of [employer] CARDIOLOGY Tania lEdridge MD - 06/12/[address] [facility] [address] Report Name: TANIA VENEGAS : 1965 Scan Date: 2024-06-12 08:10:13 Electronically signed by Guzman Eldridge 08:43:29 VITALS ====== ======== HEIGHT: 73 in (185.42 cm) WEIGHT: 265.00 lbs (120.20 kgs) BSA: 2.43 m^2 BMI: 35 kg/m^2 BP: 132 / 91 mmHg BASELINE HR: 81 BPM FINAL IMPRESSION ====== ======== 1. No thrombus seen within the left atrial appendage or cardiac chambers. 2. Normal variant pulmonary venous anatomy without stenosis. 3. Coronary artery calcifications, small left sided pleural effusion, and other incidental findings noted below. ====== CARDIAC CT PULMONARY VENOGRAM / LEFT ATRIAL ASSESSMENT 58 year old man with persistent AF anticipating cardioversion, also with CHB and PPM, recent robotic assisted thoracoscopic sympathectomy for VT on 05/25/2024, hypertension, BRANNON. FINDINGS 1. There are 5 pulmonary veins (PV) draining to the left atrium (LA). RUPV demonstrates early branching, and there is a separately arising right middle vein. 2. There is no LA, RA or RUBEN thrombus by first pass and delayed images. Prominent pectinate muscle is seen in the RUBEN. 3. Heavy coronary calcification is seen. However, the study is not optimized for coronary calcification detection or for luminal stenosis evaluation. 4. The ascending aorta is normal in size measuring 34 x 34 mm at the PA bifurcation. The main pulmonary artery measures 27 mm diameter which is normal in size. Calcification seen in mitral valve, aortic root. Extra cardiac findings: limited field of view. Chest Wall: no major deformity. Mediastinum: prominent lymph nodes with none measuring greater than 1 cm Liss: normal, without adenopathy. Pleural Spaces: small left sided pleural effusion. Lung Parenchyma: Scattered airspace opacifications in the GEOFFREY, and subsegmental atelectasis noted. Abdomen: Normal . STUDY QUALITY: Study quality is good. SCAN INFO ====== ======== TEST TYPE: Venogram SCANNER TRAIN ELECTRONIC TECHNICIAN: [employer] SCANNER MODEL: [employer] DOSE REDUCTION ALGORITHM: Helical with dose modulation SCAN COVERAGE ZONE: Pulmonary Veins/RUBEN EKG GATED: No GENERAL ------ CONTRAST AGENT CONTRAST AGENT USED?: Yes TYPE: Omnipaque 350 DOSE: 50 ml RATE: 4 ml/s ROUTE: IV ARM: Left BOLUS TECHNIQUE: Biphasic SCAN DELAY TIME METHOD: Bolus Track SERUM CREATININE: 1.24 mg/dL GFR: 63.64 ml/min/1.73m^2 CREATININE DATE: CT CONTRAST REACTION: None RADIATION DOSE DLP: 291 SETUP DATE OF EVENT: SCAN TYPE: Clinical PATIENT TYPE: Outpatient REASON(S) FOR SCAN: EP procedure planning REFERRING PHYSICIAN: 1) Alexander Cox MD FELLOW: ANJELICA Jameson MD NURSE: Natalie Albrecht ATTENDING PHYSICIAN: TANIA ELDRIDGE MD TECHNOLOGIST: Judith Delarosa ====== ======== Patient Account [id number] CPT Codes 79134 ICD10 Codes I48.91 Report generated by [employer], a product of [employer] [facility] Radiology Study observation (narrative) [facility] Chest>Heart.atrium.left+Pulm onary veins CT angiogram and 3D reconstruction W contrast IVOrdered By: Tania Eldridge on 06-12-2024 [facility] Work Phone: EXTRA LAVENDER TOPon 06-12-2 024 [facility] PT,INR,PTTon 06-12-2024 aPTT Coag (PPP) [Time] 38.3 s High [facility] INR Coag (Bld) [Relative time] 3.4 {INR} High 0.9 - 1.1 [facility] Interpretation and review of laboratory results Abnormal [facility] PT Coag (PPP) [Time] 34.1 s High [facility] aPTT Coag (Bld) [Time] 38.3 s High 24.0-34.3 [facility] Comment on above: Performed By: #### X MPO #### [facility] (DEFAULT) [address] [place] [address] INR Coag (PPP) [Relative time] 3.4 {INR} High 0.9-1.1 [facility] Comment on above: Performed By: #### X MPO #### [facility] (DEFAULT) [address] [place] [address] 85058 PT Coag (PPP) [Time] 34.1 s High 11.9-14.2 [facility] Comment on above: Performed By: #### X MPO #### [facility] (DEFAULT) [address] [place] [address] XR CHEST PA AND LATERAL 2 EWSon 06-04-2024 XR CHEST PA AND LATERAL 2 VIEWS EXAM: XR CHEST PA AND LATERAL 2 VIEWS, 06/04/2024 08:34 AM COMPARISON: May 26, 2024 CLINICAL INDICATIONS: r/o pneumo RELEVANT CLINICAL HISTORY: I47.20:Ventricular tachycardia FINDINGS: (Adequate technique). Cardiomegaly. Small left effusion with some patchy atelectasis. Left subclavian ICD in place. The bilateral small pneumothoraces have resolved. IMPRESSION: No significant change. No pneumothorax on the current study. Normal [facility] XR Chest PA and Lateralon IMPRESSION: No significant change. No pneumothorax on the current study. OLOGY EXAM: XR CHEST PA AN D LATERAL 2 VIEWS, 06/04/2024 08:34 AM COMPARISON: May 26, 2024 CLINICAL INDICATIONS: r/o pneumo RELEVANT CLINICAL HISTORY: I47.20:Ventricular tachycardia FINDINGS: (Adequate technique). Cardiomegaly. Small left effusion with some patchy atelectasis. Left subclavian ICD in place. The bilateral small pneumothoraces have resolved. RADIOLOGY Adán Thomas MD - 06/04/2024 EXAM: XR CHEST PA AND LATERAL 2 VIEWS, 06/04/2024 08:34 AM COMPARISON: May 26, 2024 CLINICAL INDICATIONS: r/o pneumo RELEVANT CLINICAL HISTORY: I47.20:Ventricular tachycardia FINDINGS: (Adequate technique). Cardiomegaly. Small left effusion with some patchy atelectasis. Left subclavian ICD in place. The bilateral small pneumothoraces have resolved. IMPRESSION IMPRESSION: No significant change. No pneumothorax on the current study. [facility] Radiology Study observation (narrative) [facility] XR Chest PA and LateralOrder ed By: Adán Thomas on 06-04-2024 [facility] Work Phone: DEVICE EVALUATION (SCANNED)o n 05-28-2024 [facility] Radiology Study observation (narrative) [facility] CBC AND ELECTRONIC DIFFon Basophils (Bld) [#/Vol] K/uL 0.00 - 0.09 K/uL [facility] Basophils/100 WBC (Bld) 0.1 % [facility] Differential cell count method Nom (Bld) Electronic Differential O [facility] Eosinophils (Bld) [#/Vol] K/uL 0.00 - 0.48 K/uL [facility] Eosinophils/100 WBC (Bld) 0.0 % [facility] Erythrocyte distribution width (RBC) [Ratio] 14.6 % High 10.9 - 14.3 % [facility] Hematocrit (Bld) [Volume fraction] 36.0 % Low 39.6 - 48.8 % [facility] Hemoglobin (Bld) [Mass/Vol] 11.6 g/dL Low 13.4 - 16.8 g/dL [facility] Immature granulocytes (Bld) [#/Vol] 0.05 10*3/uL NINF - 0.07 K/uL [facility] Immature granulocytes/100 WBC (Bld) 0.4 % [facility] Interpretation and review of laboratory results Abnormal [facility] Lymphocytes (Bld) [#/Vol] 0.78 10*3/uL Low 0.83 - 3.57 K/uL [facility] Lymphocytes/100 WBC (Bld) 6.6 % [facility] MCH (RBC) [Entitic mass] 30.9 pg 26.1 - 33.3 pg [facility] MCHC (RBC) [Mass/Vol] 32.2 g/dL 31.9 - 36.5 g/dL [facility] MCV (RBC) [Entitic vol] 96.0 fL High 79.0 - 94.5 fL [facility] Monocytes (Bld) [#/Vol] 1.02 10*3/uL High 0.24 - 0.93 K/uL [facility] Monocytes/100 WBC (Bld) 8.6 % [facility] Neutrophils (Bld) [#/Vol] 10.04 10*3/uL High 1.57 - 6.19 K/uL [facility] Nucleated RBC/100 WBC (Bld) [Ratio] 0.0 % [facility] Platelet mean volume (Bld) [Entitic vol] 9.7 fL 8.7 - 12.3 fL [facility] Platelets (Bld) [#/Vol] 217 10*3/uL 146 - 337 K/uL [facility] RBC (Bld) [#/Vol] 3.75 10*6/uL Low [facility] Segmented neutrophils/100 WBC (Bld) 84.3 % [facility] WBC (Bld) [#/Vol] 11.90 10*3/uL High 3.73 - 10 .10 K/uL [facility] Abs Baso Auto < Normal 0.00-0.09 [facility] Comment on above: Performed By: #### L [id number] ####[facility] (DEFAULT)[address] [place] [address] Abs Eos Auto < Normal 0.00-0.48 [facility] Comment on above: Performed By: #### L [id number] ####[facility] (DEFAULT)[address] [place] [address] Basophils/100 WBC (Bld) 0.1 % Normal [facility] Comment on above: Performed By: #### L [id number] ####[facility] (DEFAULT)[address] [place] [address] DIFF STATUS Electronic Differential Normal [facility] Comment on above: Performed By: #### L [id number] ####[facility] (DEFAULT)[address] [place] [address] Eosinophils/100 WBC (Bld) 0.0 % Normal [facility] Comment on above: Performed By: #### L [id number] ####[facility] (DEFAULT)[address] [place] [address] Hematocrit (Bld) [Volume fraction] 36.0 % Low 39.6-48.8 [facility] Comment on above: Performed By: #### L [id number] ####[facility] (DEFAULT)[address] [place] [address] Hemoglobin (Bld) [Mass/Vol] 11.6 g/dL Low 13.4-16.8 [facility] Comment on above: Performed By: #### L [id number] ####[facility] (DEFAULT)[address] [place] [address], [place] [address] Immature Grans % 0.4 % Normal [facility] Comment on above: Performed By: #### L [id number] ####[facility] (DEFAULT)[address] [facility] [place] [address] Immature Grans Absolute 0.05 K/uL Normal <=0.07 [facility] Comment on above: Performed By: #### L [id number] ####[facility] (DEFAULT)[address] [place] [address] Lymphocytes (Bld) [#/Vol] 0.78 10*3/uL Low 0.83-3.57 [facility] [facility] Comment on above: Performed By: #### L [id number] ####[facility] (DEFAULT)[address] [place] [address] Lymphocytes/100 WBC (Bld) 6.6 % Normal [facility] Comment on above: Performed By: #### L [id number] ####[facility] (DEFAULT)[address] [facility] [place] [address] MCV (RBC) [Entitic vol] 96.0 fL High 79.0-94.5 [facility] Comment on above: Performed By: #### L [id number] ####[facility] (DEFAULT)[address] [place] [address] Mean Cell Hgb 30.9 pg Normal 26.1-33.3 [facility] Comment on above: Performed By: #### L [id number] ####[facility] (DEFAULT)[address] [place] [address] Mean Cell Hgb Conc 32.2 g/dL Normal 31.9-36.5 [facility] Comment on above: Performed By: #### L [id number] ####[facility] (DEFAULT)[address] [place] [address] Monocytes (Bld) [#/Vol] 1.02 10*3/uL High 0.24-0.93 [facility] Comment on above: Performed By: #### L [id number] ####[facility] (DEFAULT)[address] [place] [address] Monocytes/100 WBC (Bld) 8.6 % Normal [facility] Comment on above: Performed By: #### L [id number] ####[facility] (DEFAULT)[address] [place] [address] Nucleated RBC 0.0 /100 WBC Normal <=0.2 [facility] Comment on above: Performed By: #### L [id number] ####[facility] (DEFAULT)[address] [place] [address] Platelet mean volume (Bld) [Entitic vol] 9.7 fL Normal 8.7-12.3 [facility] Comment on above: Performed By: #### L [id number] ####[facility] (DEFAULT)[address] [place] [address] Platelets (Bld) [#/Vol] 217 10*3/uL Normal 146-337 [facility] Comment on above: Performed By: #### L [id number] ####[facility] (DEFAULT)[address] [place] [address] RBC (Bld) [#/Vol] 3.75 10*6/uL Low 4.38-5.83 [facility] Comment on above: Performed By: #### L [id number] ####[facility] (DEFAULT)[address] [place] [address] RBC Distribution 14.6 % High 10.9-14.3 [facility] Comment on above: Performed By: #### L [id number] ####[facility] (DEFAULT)[address] [place] [address] Segs + Bands Auto 84.3 % Normal [facility] Comment on above: Performed By: #### L [id number] ####[facility] (DEFAULT)[address] [place] [address] Segs + Bands,Absolute Auto 10.04 K/uL High 1.57-6.19 [facility] Comment on above: Performed By: #### L [id number] ####[facility] (DEFAULT)[address] [place] [address] WBC (Bld) [#/Vol] 11.90 10*3/uL High 3.73-10.10 [facility] Comment on above: Performed By: #### L [id number] ####[facility] (DEFAULT)[address] [place] [phone] CHEM 7 (LYTES,BUN,CREA,GLUC) on 05-26-2024 Anion gap [Moles/Vol] 14 mmol/L 7 - 17 mmol/L [facility] Chloride [Moles/Vol] 98 mmol/L 98 - 10 8 mmol/L [facility] CO2 [Moles/Vol] 21 mmol/L 21 - 31 mmol/L [facility] Creatinine [Mass/Vol] 1.14 mg/dL 0.70 - 1.30 mg/dL [facility] eGFR, CKD-EPI, Male 75 - PINF [facility] Comment on above: Reported eGFR is bas ed on the CKD-EPI 2020 equation using creatinine, age, and sex. Glucose [Mass/Vol] 179 mg/dL High 70 - 99 mg/dL [facility] Interpretation and review of laboratory results Abnormal [facility] Osmolality Calc [Osmolality] 279 [facility] Potassium [Moles/Vol] 4.6 mmol/L 3.5 - 5.0 mmol/L [facility] Sodium [Moles/Vol] 128 mmol/L Low 135 - 145 mmol/L [facility] Urea nitrogen [Mass/Vol] 18 mg/dL 7 - 25 mg/dL [facility] Urea nitrogen/Creatinine [Mass ratio] 16 mg/mg [facility] Anion gap [Moles/Vol] 14 mmol/L Normal 7-17 [facility] Comment on above: Performed By: #### T DEBORAH, FT4 #### [facility] (DEFAULT) [address] [place] [address] Chloride [Moles/Vol] 98 mmol/L Normal 98-108 [facility] Comment on above: Performed By: #### T DEBORAH, FT4 #### [facility] (DEFAULT) [address] [place] [address] CO2 [Moles/Vol] 21 mmol/L Normal 21-31 [facility] Comment on above: Performed By: #### T DEBORAH, FT4 #### [facility] (DEFAULT) [address] [place] [address] Creatinine [Mass/Vol] 1.14 mg/dL Normal 0.70-1.30 [facility] Comment on above: Performed By: #### T SH, FT4 #### [facility] (DEFAULT) [address] [place] [address] GFR/1.73 sq M.predicted among non-blacks MDRD (S/P/Bld) [Vol rate/Area] 75 mL/min/{1.73_m2} Normal >=60 [facility] Comment on above: Result Comment: Repo rted eGFR is based on the CKD-EPI 2020 equation using creatinine, age, and sex. Performed By: #### T SH, FT4 #### [facility] (DEFAULT) [address] [place] [address] Glucose [Mass/Vol] 179 mg/dL High 70-99 [facility] Comment on above: Performed By: #### T SH, FT4 #### [facility] (DEFAULT) [address] [place] [address] Osmolality [Osmolality] 279 mosm/kg Normal 278-305 [facility] Comment on above: Performed By: #### T SH, FT4 #### [facility] (DEFAULT) [address] [place] [address] Potassium [Moles/Vol] 4.6 mmol/L Normal 3.5-5.0 [facility] Comment on above: Performed By: #### T SH, FT4 #### [facility] (DEFAULT) [address] [place] [address] Sodium [Moles/Vol] 128 mmol/L Low 135-145 [facility] Comment on above: Performed By: #### T SH, FT4 #### [facility] (DEFAULT) [address] [place] [address] Urea nitrogen [Mass/Vol] 18 mg/dL Normal 7-25 [facility] Comment on above: Performed By: #### T SH, FT4 #### [facility] (DEFAULT) [address] [place] [address] Urea nitrogen/Creatinine [Mass ratio] 16 mg/mg Normal [facility] Comment on above: Performed By: #### T SH, FT4 #### [facility] (DEFAULT) [address] [place] [address] CONTINUOUS CARDIAC MONITORIN G STRIPOrdered By: Unassigned Pacs on 05-26-2024 [facility] Work Phone: MAGNESIUMon 05-26-2024 Interpretation and review of laboratory results Normal [facility] Magnesium [Mass/Vol] 1.9 mg/dL 1.6 - 2 .6 mg/dL [facility] Magnesium [Mass/Vol] 1.9 mg/dL Normal 1.6-2.6 [facility] Comment on above: Performed By: #### T DEBORAH, FT4 #### [facility] (DEFAULT) [address] [place] [address] No Panel Informationon 05-26 [facility] Portable XR Chest Viewson IMPRESSION: Small right apical and left medial pneumothoraces lung removal of bilateral chest tubes. OLOGY EXAM: XR CHEST 1 VIE W PORTABLE, 05/26/2024 10:54 AM CLINICAL INDICATIONS: s/p bilateral chest tube removal RELEVANT CLINICAL HISTORY: COMPARISON: Compared to the study performed earlier the same day at 5:54 AM FINDINGS: Unchanged left subclavian ICD. Interval removal of the bilateral chest tubes. Small right apical and left medial pneumothoraces. Bibasilar volume loss. Prominent heart. No pulmonary edema. Normal bones. RADIOLOGY Felton Jauregui M D, PhD - 05/26/2024 EXAM: XR CHEST 1 VIEW PORTABLE, 05/26/2024 10:54 AM CLINICAL INDICATIONS: s/p bilateral chest tube removal RELEVANT CLINICAL HISTORY: COMPARISON: Compared to the study performed earlier the same day at 5:54 AM FINDINGS: Unchanged left subclavian ICD. Interval removal of the bilateral chest tubes. Small right apical and left medial pneumothoraces. Bibasilar volume loss. Prominent heart. No pulmonary edema. Normal bones. IMPRESSION IMPRESSION: Small right apical and left medial pneumothoraces lung removal of bilateral chest tubes. [facility] IMPRESSION: No visible pneumothorax at this time. OLOGY EXAM: XR CHEST 1 VIE W PORTABLE, 05/26/2024 06:23 AM CLINICAL INDICATIONS: ptx RELEVANT CLINICAL HISTORY: COMPARISON: Compared to the prior study performed one day prior. FINDINGS: Unchanged left subclavian ICD and bilateral chest tubes. No pneumothorax Cardiomegaly. No pulmonary edema. Left greater than right basilar volume loss, unchanged. RADIOLOGY Felton Jauregui M D, PhD - 05/26/2024 EXAM: XR CHEST 1 VIEW PORTABLE, 05/26/2024 06:23 AM CLINICAL INDICATIONS: ptx RELEVANT CLINICAL HISTORY: COMPARISON: Compared to the prior study performed one day prior. FINDINGS: Unchanged left subclavian ICD and bilateral chest tubes. No pneumothorax Cardiomegaly. No pulmonary edema. Left greater than right basilar volume loss, unchanged. IMPRESSION IMPRESSION: No visible pneumothorax at this time. [facility] Radiology Study observation (narrative) [facility] Radiology Study observation (narrative) [facility] Portable XR Chest ViewsOrder ed By: Felton Jauregui on 05-26-2024 [facility] Work Phone: SODIUMOrdered By: Elian nye on 05-26-2024 Interpretation and review of laboratory results Abnormal [facility] Sodium [Moles/Vol] 134 mmol/L Low 135 - 145 mmol/L [facility] SODIUMon 05-26-2024 Sodium [Moles/Vol] 134 mmol/L Low 135-145 [facility] Comment on above: Performed By: #### B ADDRESSING MACHINE OPERATOR #### [facility] (DEFAULT) [address] [place] [address] SURG PATH REQUESTOrdered By: Julius Maher on 05-26-2024 Case Report Surgical Pathology Report Case: [id number] Authorizing Provider: Prince Falk MD Collected: 05/25/2024 09:05 AM Ordering Location: [facility] Received: 05/25/2024 11:41 AM Pathologist: Julius Maher MD Specimens: A) - SURG PATH, Left sympathetic nerve chain, T1-T4 B) - SURG PATH, Right sympathetic nerve chain, T1-T4 [facility] Work Phone: Clinical History w2qigHZhNQKgeOXyHGAj M1x zwlChVSQiqNMmZ6QasiwpXD nbVH9rVD6mfXqveDFzqHCsO KHpOjOsg4zsy521mNQep8cv GINEeixfhOu4nWciU65wv3M 6PsjjA4brFJExOUbcLXPzMB fnmJTgNNc3GOOmvLDzchKnS gTeYLEvjADluIF2WBDvAV0e dtamIYsiJAllGJKzqeB1QBX clVUtS3VpONFxGF2gtxzyHW Q0VStgGSObWSF5SkIeHPVve 4Srtdo3YmOmmYe1a2ggFBOp RYZdkIjuh9btSJC3EQWuhXQ aF0dpjG8dBJCdGS3qrhmhr1 vpBEbrLJhwRIJbfKL9bhP1I EHphUUfO0IocV6xCDAlZNVr qaMnxJnnkO9kTkQoFIubDeW sHUAjv7VgQFrsF74bm3wbSz KQRFGuQ7syTI3fTByxEMpcN CdxiB7chJekUSnqnQkjzKC3 TDNsluIjda2qGOQhPrHwu8r wkqshaOZwSG7nu5YkBJSgqu UhlGAzbPlnPxRabCS3e8cpR yBoZWFydCBmYWlsdXJlLiBc cGFyfQ== [facility] Work Phone: For Immediate Release to Patient's MyChart? Yes Yes [facility] Work Phone: Gross Description e1pfjBIhRFBrw0lmCEOr bGF uZzEwMzNcZnRuYmpcdWMxIH cjaiVaHTeccMajZVI1QHVqK W1fnInyxRy4cOuhPLTubxO4 sYIhXBakf1jcHRW9z2ktvab hTEUfRJauUa9zoUQazBbpBd EuNUObTYd4zJ71HSCzoD0um LTuOPh4XAVtiGTluiUyEuQs LCOzcNPvuTA9JTFmAJ2tefe pNKgsRLbpCVHwvgK1LRTnkG OaQ2EnNSInYC0pqkaxOGN5I AhuHELvOOU5YdYyHBAqo3Px cxu3VpJepSJnBKmfuTXbvru trtEkSSAmNCOhhCThjM0baw HnAWQjYHXcC4VjtnLoSErlV RR5ijGckk0zUUJszUHdFUDb xLRzXCHzujHisB8reuWkq0p 2mJQ1uGQseHK0rEQcfOekSY 2jvCMpDH5lFUQwB6Fkx1wwl rPxiC0eSFSqLEajHQGghRQs IEEuICBcdGFiIFRoZSBzcGV ziW0xivKgqlNtYGAmQ59jjB ZaVJIpWME5MJY6yOIieIaqn BqvHL4lhzZeYQBuPKgyGSAT CX70ZgUpmgYjE06bm0isaBI iz2SrDDWjpDSasGTyKlPmgM 5rLXdoaXRlIHRvIHllbGxvd g20IS0oq85igTZ4xFBlqBDs wNDvg5EcoX9xAFsxRnS1TLW bJXP7CMDpPeFjeC1lPUtqXQ NwZWNpbWVuIGlzIHRyaXNlY 3SkGL6aVXYwCSWexSYpTJRt btYRBtAxTXYzTfHNzUCmt2N hF9ykKX6egARwABXctNtkXC BkGOSuvqmvbGDok1bdvFV1g NJ0zWXipeKhpiTzK5cerH2d HZPmSSR7OePspzFhY21fn1y lbAGce3ZqUTWuoSCweLWqAp KdlP0jGVfzqPBnZMXcWaUjv Uanc3IaCBOyJSXflDEbUX61 YNjvJZ39HPreBK9wKQOtAiB IbZYvm4ZpI7thLZ9kqZNdeS Emx9NreLDzJrLZHMXyZFoeU HAugWWnBYqwKaMFh4SyM49z wNpdPb0mRDFoERUuTzJfOBI 9EeUbMAqkXGM2z0musOLaRN XdiRCsTfRlNHMaDRNft0rzC GVmbGFuZzEwMzNcZnRuYmpc pFJfLRAfKwIkq2ijw838zBI pb4idKWDxPnD4pWNrYOClgO MuO203ZDOeXMmib2wzn1RyQ TEdcLHpe6E2EGQJimrytJw9 mYdsB93pl0P4ArxkU9ijIRZ aUSCdB9OhXY4aVMNtBhe8MD S0LDR2UIYdUYSlG7XtDQ0lA LNoyNCqOOd6c8nsuEvmDRYw QLC8k7jyGXhtdvUvNM7xoz5 egFm0s2atydGmWQFvSQCwpP GGIDCjP9TtyXacJt4qiZt7j PdvCelcLAC8Kou2QX0aci97 mrb1kTvkOMNxwtadLiL6CAb rCTOqttyrYYg5WNvdXPZexD S2EZIryMFiH1LwNHBfPX3pc dr2PRF2JUifGPAuDwM7TZDz lNJrVCHloCxvWPqzt969ISR 5YkZmFI8vM1Msh5G4uJ3ggG ApILMxqGIrBsMsVFWamc9ad OUzKKbyt5BkEAZ6mdD6hQPa mUYkNCWvOD40Hivul0UlJil aAKR1HIJafiFwn8Gly1elKk WaryGvV1ohG1IbLYIoUNUyK NDcKaIfviMgc9Fzw7JksERq nXh2k0deFUHbDRSjkQyia3i mHNV4ALDeZ9K8wVUzz0ybGW cuGKMvvDE3wlJ7GVNxdMWaH 9VvhK8cBGAqMH6xpeg5p6fs SWM5QIwhSALxCnW4jaP3OAQ niAMwFMLkpOseUPfff753PR M2YmZeHJLmv4KbH3FqzPwbW 18znUpvN62oYXNpuVmmlS7f aPzfgL1nPmPoQsVhPVwobIi wbGFpblxmMVxmczIyXGxhbm kxWSFrCBuuD4eoSjNaZRGyj CfpYHygz0FbGIZoSYAxIhAp T1Kbr6GbzoQig6PenVqqpdM jYXNlIHdhczogSmVmZnJleS MSpGDwLVsuLDWyrg53 [facility] Work Phone: Images [facility] Work Phone: Microscopic Description g0lhcWLaRMOglFJpNhIeQGP oITGvl7kpFBLvmFIaZcZkKz NcZnRuYmpcdWMxXGRlZmYwe 1uef909iBOvs1zpVFPcXrC9 oCXiPENwlKDoA786XVHiISm nu6lyw9QvSRYohYAsc5C5PH GUcnyviSf9vDmvR72ja7G6E uqaC8fqASJuYUQzP6SbGC5k LGAuSvp2JYD2POT7JVKoNVW vV6AxIM5kYCVgxFFlNWh0m1 zfeFltTTJmFEL1q1acZBiqf cBaXF9miu0wyPu8i9inpzDw QBNbMGUedSNJLLTtO7JvuLe fBh8ozMo6zCluMsalEHC2Iy q0UA1rqc12jcv2dEosMGLub kjgOpU5UWkdEMJuzwqsUGu8 ODvgCWSsbJX4CCVktISvA6E sVTUeAG2qcfj9MBL0DGnhDB FrFbH9OQWsnNTeUICsgIjkB Tfhp310VJW4VnHkXM5vP1Rq l0X0oC5brJIeVOSykJUwNoG uENBxyc3vrNQtXPwnc4CzEB X9gfA5pNSryTFpUGVcLC44L rdim9CrUuuuRIW6QTXetcXc i9Hrm8xhBhNddqJeG7kcF6K yZHJoZWFkXHBnYnJkcmZvb3 Bbh8FxnBCcfJj3x3rxWBHcN KHhmHkkm5fwRYN9COKjB5H4 nWLsg8raOHoyHWXvcQM9alM 8FQSaiKQmH9KnpL7iBCMqCH 5edla9s9hxJUR9NAjpNDLtX jZ5xxY2JEZbaXZuQRCjoPmm JSyya845DEQ6XxFvFBLrk0O kE6UpwFwlS30otIwyH65mHF WwjDophE3pbGzatO1uIsMiI nMyNFxxbFxwbGFpblxmMVxm rfXaDMixccfqXDUyRBkoC6g lNdDoZQPgmFfuTCxkp0JvAS OiWUVlEsFgLOQucUBvj9Pcp 5FpMhTueCGenN3fmXrbymQ1 LNUpwZYxEb3kiZTxLdBbpLX yfQ== [facility] Work Phone: Pathologic Diagnosis i6lxgURrRHZatISwTCX wM1x aejAlQAJfgYKsU1UlcpaoTJ qkWE3rNQ5xtWrukWVvwTYbB DFtEzMjx8mja122sHLeb3vv STYTnaroeQi9a3edMFATwL2 ks1f3dP30AKObiC0xmDEuCB zqffAnNJrjkmRfysOdNam5N JX2hTjfRgduvLT2hYGmdTW6 GOwnv1FbeNochUnmFNS0LYA 1BrQrFghvcQW3ySMjvPwyqK VlKU3bs2ynfAV6jxUlLLF9j MitdKR6iJaszophc6uxjSJ6 yZD4ATefnEJ8OIrnOtZvJ7n bXXToaQ8tV84nD6ukSLMcaB efZLefPYPjaQX4YXG5SFOmc 1xsZXZlbHRleHRcJzAxXCdi Oje3z3yuDQJcuE74sRYrhiD 7fVxmMVxmczIwXGxpMzYwXG ZpMTgwfXtcbGlzdGxldmVsX PtlzwYjsnUuYbUibSQ5ERdh HmMsQkAjfIT0XZecBdLltXA 8LVivnCFzuJM0KMikcXT8PT u5YPw7KHuoMDesKmy2fIltx IT3GQrrtH4wCWLvN49xTuHf LoFxFQ47IVkaj6SrKWZyoCy iRKVnoT3aTqBrRBkriiDihe ZjbjIzXGxldmVsamMwXGxld yDmv6MngzCryDN2WBihkeOe cLH1vEmnDBDfC8Y6B484BLh yeqQophCoFfTpawz5IIYhMN CnLjA4i8mdmYK4kDM9LEyew CG3UBnjBiTgF0shVSVxdS0o A23xE8krYEVxaDjjWBsrNEU amLX9MXA5ZQQdy9mjVYMtwN IltJWfIkJcEIeqOxy3r6buV FYfiJ70rGAaylE9aUvlPWuf czIwfXtcbGlzdGxldmVsXGx zysTrqkWvZtExuIJ7FDrzRm MzLtMqsIS4ZWawAsGrpMN8N YtmiGSozNR9PHjokRS4DIq2 JUv1GJbwLMjeRzg8mMduoTC 8UZmzoK3kCBFlI48uSzDiKz UaRM09PApld3SnKSHqrKrlU YClvF6pHwPnEKdyunJuazXv bjIzXGxldmVsamMwXGxldmV ga0ZzfbAknRL7LGiufyUvkH X5sXscTBDzE7L3T684TAbaw zLyqiDdXlZewjw7ZMNwTCLh GhC8t9sheDX9zAM5WKhmoIJ 8OWxqKkPuL8gbAQZibI4aG1 4yQ5xkFEYvaYvyBYiwCAYye PF9TAA6GOApr0yzGUWgiFOc gBPcJcArTWgiKui9j3onLLP gvH43aOQnrfO8fOccLPnsdu IwfXtcbGlzdGxldmVsXGxld tValjEiEwDtwSG7TRobMdAa PzVlgKE5LKbbNzPimRZ6LMz hnVEkfVS1KIgviTH8QCo1PJ r0SBtpHXktRiy7dKwoxKT2E MsoaK6oXCSoM62oZmAoIlZj AY53ETogm5RnWMFnyYomLDV koA3uGnVgDRvnnjEaclQxcd IzXGxldmVsamMwXGxldmVsc 9VjkgWpiKE5GWgatfNbmFC5 sScfOJUnO9I7D103OJnhlaA okgJgDzYbqjb9KEElMIZmPn C2fE33LEndgKxpfQ71SJQgn DIsfISktJK3PGaumRsurX37 JDTmfKMgPBrri3JiPTOmYsh 0FtO1YYWgqUxofX80QPWhjZ FnO179ojAhPFpjJF72CLGlb GVydzEyMjQwXHBhcGVyaDE1 FSYwWI5tojbgXPjcEMtuWSL jrpL4BBZyaXOeG4HjJIPaVI 3jipndCLT3FCloQKAoWIJ3M qMbKFDgc0Wrbhl8PrBkwSDh OSihvMYhntjbXLKoRwKiB1Y oYCPvQPxfTkGve8vcfMA9uD Z4oFRaflJxelYiD6uhgE6aT TBjNNV4XCYrx8HljTmxNMSy k4jyiJUbVWQttjGdfwG4cC0 uOiBccGFyXGxpMzYwXGZpMT tsCUpycfR6GTQOHQ7bR59cj lVncyPnmHnxc3UeOucwHAFf mDw8IOhzqKHywHwwBBKwiUJ aOOuvWCwtyR7uWOSxKTUkL8 d8JOJ2fRBofFftkDqhHG6hx zZlBRCnTFjoDRYJZG6DZZne jd3su1SlKxEby1Qph7ZeBAI lGP3mzeRqlZrgixmhNCTgaj lvlUI0LRllrPL1QAsgdC2pM jBcbHMxXGlsdmwwXHBsYWlu XGJcZnMyMFxjZjEgQmVuaWd eIG6qsuAdHXMul6Y3PQ9pXb RcG8QyNXKdUxdsCmBadQTlr Q== [facility] Work Phone: Professional Interpretation Performed at: m4ljiAJdDBZajFFlDaFwJKD zARCvq5diGNQthDUxMgKwZs NcZnRuYmpcdWMxXGRlZmYwe 4fdp729jAVxg7jtIQWrFzB3 jKWzGQEaxBOxX613DGYeTCf qp4bxa3SyRXIoyCXzz6P3WJ PXuskqxQv5mBdqC77zv2A5G gpfF0znAVNdEHYoE9YyWZ0n OXTmVli8VKL5JFY8EKYxVLF eY3MmNR8yJKSxaZBhLLi7j7 wlxQokUWPdEZF7d2lyVInrm nCyGQ1gee6vdMk0c2oissLs XPSlUAXciUEEIDKdN1VjhAd fTe3fuTn3wLeyJzbhWNW2Tm p9JZ5yzs36rez9nMmfDGZzj pdbVxK0ITurQQAldjpvJMy3 ZAclUBFogXW4CSWpnFDjQ0F eCDKhBV7etsu3MMW5NOlzXZ PeEtD0IRWjyQHpNIZjjKktJ Cyhp605PBP4WrNdNL7zF8Mj s2J9bL5eiFLbOBUfhDZcDyX dLXBwlf0pcAQpSTupl4ErRQ A1drV1aJTqqQQfELTrNC67Y xcit2MoTbcoMMK1GUJbmlUy f1Zkk9ekYoZgifXlC0axA9V yZHJoZWFkXHBnYnJkcmZvb3 Qmp9XzzEWhbHv8q0ckQWNdU QDauWdxx3xmAMI2LUGlX4R2 hCHao5zkUYmzBGBknFT2owR 2PHCovRChB0BjqD6yIZWeNN 3qrte7e8pdMEZ3YJhvDVFgQ rZ1igN3ZNBrlUAsYHAqgJnl RXiap195NID0TaXbVBQke8Z cE0YcaGjsY57dcChvX35sVI EgyMlktB4tkLotvU0vHtYvB nMyNFxwYXJkXHBsYWluXGYx XGZzMjJcbGFuZzEwMzNcaGl jaFxmMVxkYmNoXGYxXGxvY2 xgLeCiIjGnYyKOL5UwP9SGK hUUDD4CPLyTKYtyW3TXZQFV CCNMYI4IW5WHODeDEc8FRJM ZHqvtuGTaEWAwRTVZJOS2CU SrjOnyMMAoFAIrtoOJr7n7k UP4gwllR2bqrfV6GtFaYPwt YXJ9 [facility] Work Phone: [facility] Work Phone: XR CHEST 1 VIEW PORTABLEon 0 05-26-2024 XR CHEST 1 VIEW PORTABLE EXAM: XR CHEST 1 VIEW PORTABLE, 05/26/2024 10:54 AM CLINICAL INDICATIONS: s/p bilateral chest tube removal RELEVANT CLINICAL HISTORY: COMPARISON: Compared to the study performed earlier the same day at 5:54 AM FINDINGS: Unchanged left subclavian ICD. Interval removal of the bilateral chest tubes. Small right apical and left medial pneumothoraces. Bibasilar volume loss. Prominent heart. No pulmonary edema. Normal bones. IMPRESSION: Small right apical and left medial pneumothoraces lung removal of bilateral chest tubes. Normal [facility] XR CHEST 1 VIEW PORTABLE EXAM: XR CHEST 1 VIEW PORTABLE, 05/26/2024 06:23 AM CLINICAL INDICATIONS: ptx RELEVANT CLINICAL HISTORY: COMPARISON: Compared to the prior study performed one day prior. FINDINGS: Unchanged left subclavian ICD and bilateral chest tubes. No pneumothorax Cardiomegaly. No pulmonary edema. Left greater than right basilar volume loss, unchanged. IMPRESSION: No visible pneumothorax at this time. Normal [facility] GLUCOSE POCon 05-25-2024 Glucose [Mass/Vol] 174 mg/dL High 70 - 99 mg/dL [facility] Interpretation and review of laboratory results Abnormal [facility] POC Sample Type CAPBL [facility] Test performed at address of the patient encounter. [facility] Glucose [Mass/Vol] 120 mg/dL High 70 - 99 mg/dL [facility] Interpretation and review of laboratory results Abnormal [facility] POC Sample Type VENO [facility] Test performed at address of the patient encounter. [facility] No Panel Informationon 05-25 ABO/RH(D) TYPE Positive [facility] BLOOD COMPONENT TYPE Red Cells, Leukoreduced [facility] EXPIRATION DATE [id number] [facility] Product ABO/RH(D) Positive [facility] Product ABO/RH(D) NUMBER [id number] [facility] PRODUCT CODE [id number] [facility] UNIT STATUS released [facility] Radiology Study observation (narrative) [facility] No Panel InformationOrdered By: Chantelle Witt on 05-25-2024 [facility] Work Phone: POC ARTERIAL BLOOD GASon Base excess Calc (Bld) [Moles/Vol] 2.7 mmol/L -3.0 - 3.0 mmol/L [facility] Calcium.ionized (Bld) [Mass/Vol] 4.66 mg/dL 4.60 - 5.30 mg/dL [facility] CO2 (Bld) [Partial pressure] 47 mm[Hg] [facility] Glucose [Mass/Vol] 106 mg/dL High 70 - 99 mg/dL [facility] HCO3 (Bld) [Moles/Vol] 28 mmol/L 22 - 28 mmol/L [facility] Hematocrit (Bld) [Volume fraction] 33 % Low 40 - 50 % [facility] Hemoglobin (Bld) [Mass/Vol] 10.9 g/dL Low 13.4 - 16.8 g/dL [facility] Interpretation and review of laboratory results Abnormal [facility] Lactate [Moles/Vol] 0.8 mmol/L 0.5 - 1. 6 mmol/L [facility] Oxygen (Bld) [Partial pressure] 310 mm[Hg] High [facility] Oxygen saturation in Blood 100 % High 94 - 98 % [facility] pH (Bld) 7.38 [pH] 7.35 - 7.45 [facility] Potassium [Moles/Vol] 4.0 mmol/L 3.5 - 5.0 mmol/L [facility] Sodium [Moles/Vol] 135 mmol/L 135 - 145 mmol/L [facility] Specimen source Nom (Unsp spec) Arterial [facility] Test performed at address of the patient encounter. [facility] PREPARE TO TRANSFUSE OR RED BLOOD CELLSon 05-25-2024 UNIT NUMBER [id number] [facility] UNIT NUMBER [id number] [facility] PT,INR,PTTon 05-25-2024 aPTT Coag (PPP) [Time] 27.2 s [facility] INR Coag (Bld) [Relative time] 1.1 {INR} 0.9 - 1.1 [facility] Interpretation and review of laboratory results Abnormal [facility] PT Coag (PPP) [Time] 14.5 s High [facility] aPTT Coag (Bld) [Time] 27.2 s Normal 24.0-34.3 [facility] Comment on above: Performed By: #### X MPO #### [facility] (DEFAULT) [address] [address] INR Coag (PPP) [Relative time] 1.1 {INR} Normal 0.9-1.1 [facility] Comment on above: Performed By: #### X MPO #### [facility] (DEFAULT) [address] [place] [address] PT Coag (PPP) [Time] 14.5 s High 11.9-14.2 [facility] Comment on above: Performed By: #### X MPO #### [facility] (DEFAULT) [address] [place] [address] Portable XR Chest Viewson IMPRESSION: New small left pleural effusion and adjacent atelectasis. New small right apical pneumothorax. I personally viewed and interpreted these images and I have reviewed and approved this report. OLOGY EXAM: XR CHEST 1 VIE W PORTABLE, 05/25/2024 11:50 AM COMPARISON: Chest radiograph dated April 09, 2024. CLINICAL INDICATIONS: Pneumothorax RELEVANT CLINICAL HISTORY: In PACU or SICU. FINDINGS: (Adequate technique) Implanted Devices: Stable left subclavian approach AICD. Interval placement of bilateral chest tubes with tips overlying the right and left upper lungs. Thorax: New small left pleural effusion with adjacent atelectasis. New small right apical pneumothorax. Central vascular engorgement. Minimal subcutaneous emphysema in bilateral chest wall more on the left. RADIOLOGY Chantelle Witt MD - 05/25/2024 EXAM: XR CHEST 1 VIEW PORTABLE, 05/25/2024 11:50 AM COMPARISON: Chest radiograph dated April 09, 2024. CLINICAL INDICATIONS: Pneumothorax RELEVANT CLINICAL HISTORY: In PACU or SICU. FINDINGS: (Adequate technique) Implanted Devices: Stable left subclavian approach AICD. Interval placement of bilateral chest tubes with tips overlying the right and left upper lungs. Thorax: New small left pleural effusion with adjacent atelectasis. New small right apical pneumothorax. Central vascular engorgement. Minimal subcutaneous emphysema in bilateral chest wall more on the left. IMPRESSION IMPRESSION: New small left pleural effusion and adjacent atelectasis. New small right apical pneumothorax. I personally viewed and interpreted these images and I have reviewed and approved this report. [facility] SURG PATH REQUESTon 05-25-20 24 Case Report [facility] Comment on above: Result Comment: Surg ical Pathology Report Case: [id number] Authorizing Provider: Prince Falk MD Collected: 05/25/2024 09:05 AM Ordering Location: PERIOP Received: 05/25/2024 11:41 AM Pathologist: Julius Maher MD Specimens: A) - SURG PATH, Left sympathetic nerve chain, T1-T4 B) - SURG PATH, Right sympathetic nerve chain, T1-T4 Performed By: #### S URGP #### [facility] (DEFAULT) [address] [place] [address] Clinical History Preop Diagnosis: V-tach. Medical History: Lymphoma; carcinoma of colon; pacemaker, arrhythmia; systolic heart failure. [facility] Comment on above: Performed By: #### S URGP #### [facility] (DEFAULT) [address] [place] [address] Gross Description [facility] Comment on above: Result Comment: The specimens are received in two properly labeled containers with the patient's name and accession number. A. The specimen is designated left sympathetic nerve chain, T1-4 and consists of a strip of pink-white to yellow-sotelo soft tissue measuring 7.2 x 0.8 x 0.2 cm. The specimen is trisected. TE 1 B. The specimen is designated right sympathetic nerve chain, T1-T4 and consists of a strip of pink-white soft tissue that is 5.7 x 0.7 x 0.2 cm. The specimen is trisected. TE 1 Lab Use Only: JobID [id number] Grosser for this case was: Pete Le Performed By: #### S URGP #### [facility] (DEFAULT) [address] [place] [address] Microscopic Description A microscopic examination was performed. [facility] Comment on above: Performed By: #### S URGP #### [facility] (DEFAULT) [address] [address] Pathologic Diagnosis [facility] Comment on above: Result Comment: A. L eft sympathetic nerve chain, T1-T4, robotic assisted denervation: Benign nerve tissue. B. Right sympathetic nerve chain, T1-T4, robotic assisted denervation: Benign nerve tissue. Performed By: #### S URGP #### [facility] (DEFAULT) [address] [place] [address] Professional Interpretation Performed at: Normal [facility] Comment on above: Result Comment: [facility] For Immediate Release [facility] [address] [address] Performed By: #### S URGP #### [facility] (DEFAULT) [address] [place] [address] XR CHEST 1 VIEW PORTABLEon 0 05-25-2024 XR CHEST 1 VIEW PORTABLE EXAM: XR CHEST 1 VIEW PORTABLE, 05/25/2024 11:50 AM COMPARISON: Chest radiograph dated April 09, 2024. CLINICAL INDICATIONS: Pneumothorax RELEVANT CLINICAL HISTORY: In PACU or SICU. FINDINGS: (Adequate technique) Implanted Devices: Stable left subclavian approach AICD. Interval placement of bilateral chest tubes with tips overlying the right and left upper lungs. Thorax: New small left pleural effusion with adjacent atelectasis. New small right apical pneumothorax. Central vascular engorgement. Minimal subcutaneous emphysema in bilateral chest wall more on the left. IMPRESSION: New small left pleural effusion and adjacent atelectasis. New small right apical pneumothorax. I personally viewed and interpreted these images and I have reviewed and approved this report. Normal [facility] CBC AND ELECTRONIC DIFFon Basophils (Bld) [#/Vol] K/uL 0.00 - 0.09 K/uL [facility] Basophils/100 WBC (Bld) 0.4 % [facility] Differential cell count method Nom (Bld) Electronic Differential O [facility] Eosinophils (Bld) [#/Vol] 0.15 10*3/uL 0.00 - 0.48 K/uL [facility] Eosinophils/100 WBC (Bld) 1.9 % [facility] Erythrocyte distribution width (RBC) [Ratio] 13.5 % 10.9 - 14.3 % [facility] Hematocrit (Bld) [Volume fraction] 40.6 % 39.6 - 48.8 % [facility] Hemoglobin (Bld) [Mass/Vol] 13.3 g/dL Low 13.4 - 16.8 g/dL [facility] Immature granulocytes (Bld) [#/Vol] K/uL NINF - 0.07 K/uL [facility] Immature granulocytes/100 WBC (Bld) 0.4 % [facility] Interpretation and review of laboratory results Abnormal [facility] Lymphocytes (Bld) [#/Vol] 2.01 10*3/uL 0.83 - 3.57 K/uL [facility] Lymphocytes/100 WBC (Bld) 26.0 % [facility] MCH (RBC) [Entitic mass] 30.8 pg 26.1 - 33.3 pg [facility] MCHC (RBC) [Mass/Vol] 32.8 g/dL 31.9 - 36.5 g/dL [facility] MCV (RBC) [Entitic vol] 94.0 fL 79.0 - 94.5 fL [facility] Monocytes (Bld) [#/Vol] 0.68 10*3/uL 0.24 - 0.93 K/uL [facility] Monocytes/100 WBC (Bld) 8.8 % [facility] Neutrophils (Bld) [#/Vol] 4.83 10*3/uL 1.57 - 6.19 K/uL [facility] Nucleated RBC/100 WBC (Bld) [Ratio] 0.0 % [facility] Platelet mean volume (Bld) [Entitic vol] 9.5 fL 8.7 - 12.3 fL [facility] Platelets (Bld) [#/Vol] 216 10*3/uL 146 - 337 K/uL [facility] RBC (Bld) [#/Vol] 4.32 10*6/uL Low [facility] Segmented neutrophils/100 WBC (Bld) 62.5 % [facility] WBC (Bld) [#/Vol] 7.73 10*3/uL 3.73 - 10. 10 K/uL [facility] Abs Baso Auto < Normal 0.00-0.09 [facility] Comment on above: Performed By: #### L [id number] #### [facility] (DEFAULT) [address] [address] Basophils/100 WBC (Bld) 0.4 % Normal [facility] Comment on above: Performed By: #### L [id number] #### [facility] (DEFAULT) [address] [address] DIFF STATUS Electronic Differential Normal [facility] Comment on above: Performed By: #### L [id number] #### [facility] (DEFAULT) [address] [place] [address] Eosinophils (Bld) [#/Vol] 0.15 10*3/uL Normal 0.00-0.48 [facility] Comment on above: Performed By: #### L [id number] #### [facility] (DEFAULT) [address] [place] [address] Eosinophils/100 WBC (Bld) 1.9 % Normal [facility] Comment on above: Performed By: #### L [id number] #### [facility] (DEFAULT) [address] [address] Hematocrit (Bld) [Volume fraction] 40.6 % Normal 39.6-48.8 [facility] Comment on above: Performed By: #### L [id number] #### [facility] (DEFAULT) [address] [address] Hemoglobin (Bld) [Mass/Vol] 13.3 g/dL Low 13.4-16.8 [facility] Comment on above: Performed By: #### L [id number] #### [facility] (DEFAULT) [address] [place] [address] Immature Grans % 0.4 % Normal [facility] Comment on above: Performed By: #### L [id number] #### [facility] (DEFAULT) [address] [place] [address] Immature Grans Absolute < Normal <=0.07 [facility] Comment on above: Performed By: #### L [id number] #### [facility] (DEFAULT) [address] [place] [address] Lymphocytes (Bld) [#/Vol] 2.01 10*3/uL Normal 0.83-3.57 [facility] Comment on above: Performed By: #### L [id number] #### [facility] (DEFAULT) [address] [address] Lymphocytes/100 WBC (Bld) 26.0 % Normal [facility] Comment on above: Performed By: #### L [id number] #### [facility] (DEFAULT) [address] [address] MCV (RBC) [Entitic vol] 94.0 fL Normal 79.0-94.5 [facility] Comment on above: Performed By: #### L [id number] #### [facility] (DEFAULT) [address] [address] Mean Cell Hgb 30.8 pg Normal 26.1-33.3 [facility] Comment on above: Performed By: #### L [id number] #### [facility] (DEFAULT) [address] [address] Mean Cell Hgb Conc 32.8 g/dL Normal 31.9-36.5 [facility] Comment on above: Performed By: #### L [id number] #### [facility] (DEFAULT) [address] [place] [address] Monocytes (Bld) [#/Vol] 0.68 10*3/uL Normal 0.24-0.93 [facility] Comment on above: Performed By: #### L [id number] #### [facility] (DEFAULT) [address] [place] [address] Monocytes/100 WBC (Bld) 8.8 % Normal [facility] Comment on above: Performed By: #### L [id number] #### [facility] (DEFAULT) [address] [place] [address] Nucleated RBC 0.0 /100 WBC Normal <=0.2 [facility] Comment on above: Performed By: #### L [id number] #### [facility] (DEFAULT) [address] [address] Platelet mean volume (Bld) [Entitic vol] 9.5 fL Normal 8.7-12.3 [facility] Comment on above: Performed By: #### L [id number] #### [facility] (DEFAULT) [address] [address] Platelets (Bld) [#/Vol] 216 10*3/uL Normal 146-337 [facility] Comment on above: Performed By: #### L [id number] #### [facility] (DEFAULT) [address] [address] RBC (Bld) [#/Vol] 4.32 10*6/uL Low 4.38-5.83 [facility] Comment on above: Performed By: #### L [id number] #### [facility] (DEFAULT) [address] [address] RBC Distribution 13.5 % Normal 10.9-14.3 [facility] Comment on above: Performed By: #### L [id number] #### [facility] (DEFAULT) [address] [address] Segs + Bands Auto 62.5 % Normal [facility] Comment on above: Performed By: #### L [id number] #### [facility] (DEFAULT) [address] [address] Segs + Bands,Absolute Auto 4.83 K/uL Normal 1.57-6.19 [facility] Comment on above: Performed By: #### L [id number] #### [facility] (DEFAULT) [address] [place] [address] WBC (Bld) [#/Vol] 7.73 10*3/uL Normal 3.73-10.10 [facility] Comment on above: Performed By: #### L [id number] #### [facility] (DEFAULT) [address] [place] [address] CHEM 7 (LYTES,BUN,CREA,GLUC) on 05-14-2024 Anion gap [Moles/Vol] 12 mmol/L 7 - 17 mmol/L [facility] Chloride [Moles/Vol] 103 mmol/L 98 - 10 8 mmol/L [facility] CO2 [Moles/Vol] 24 mmol/L 21 - 31 mmol/L [facility] Creatinine [Mass/Vol] 1.11 mg/dL 0.70 - 1.30 mg/dL [facility] eGFR, CKD-EPI, Male 77 - PINF [facility] Comment on above: Reported eGFR is bas ed on the CKD-EPI 2020 equation using creatinine, age, and sex. Glucose [Mass/Vol] 104 mg/dL High 70 - 99 mg/dL [facility] Interpretation and review of laboratory results Abnormal [facility] Osmolality Calc [Osmolality] 285 [facility] Potassium [Moles/Vol] 3.9 mmol/L 3.5 - 5.0 mmol/L [facility] Sodium [Moles/Vol] 135 mmol/L 135 - 145 mmol/L [facility] Urea nitrogen [Mass/Vol] 17 mg/dL 7 - 25 mg/dL [facility] Urea nitrogen/Creatinine [Mass ratio] 15 mg/mg [facility] Anion gap [Moles/Vol] 12 mmol/L Normal 7-17 [facility] Comment on above: Performed By: #### C HM7 #### [facility] (DEFAULT) [address] [place] [address] Chloride [Moles/Vol] 103 mmol/L Normal 98-108 [facility] Comment on above: Performed By: #### C HM7 #### [facility] (DEFAULT) [address] [place] [address] CO2 [Moles/Vol] 24 mmol/L Normal 21-31 [facility] Comment on above: Performed By: #### C HM7 #### [facility] (DEFAULT) [address] [place] [address] Creatinine [Mass/Vol] 1.11 mg/dL Normal 0.70-1.30 [facility] Comment on above: Performed By: #### C HM7 #### [facility] (DEFAULT) [address] [place] [address] GFR/1.73 sq M.predicted among non-blacks MDRD (S/P/Bld) [Vol rate/Area] 77 mL/min/{1.73_m2} Normal >=60 [facility] Comment on above: Result Comment: Repo rted eGFR is based on the CKD-EPI 2020 equation using creatinine, age, and sex. Performed By: #### C HM7 #### [facility] (DEFAULT) [address] [place] [address] Glucose [Mass/Vol] 104 mg/dL High 70-99 [facility] Comment on above: Performed By: #### C HM7 #### [facility] (DEFAULT) [address] [place] [address] Osmolality [Osmolality] 285 mosm/kg Normal 278-305 [facility] Comment on above: Performed By: #### C HM7 #### [facility] (DEFAULT) [address] [place] [address] Potassium [Moles/Vol] 3.9 mmol/L Normal 3.5-5.0 [facility] Comment on above: Performed By: #### C HM7 #### [facility] (DEFAULT) [address] [place] [address] Sodium [Moles/Vol] 135 mmol/L Normal 135-145 [facility] Comment on above: Performed By: #### C HM7 #### [facility] (DEFAULT) [address] [place] [address] Urea nitrogen [Mass/Vol] 17 mg/dL Normal 7-25 [facility] Comment on above: Performed By: #### C HM7 #### [facility] (DEFAULT) [address] [place] [address] Urea nitrogen/Creatinine [Mass ratio] 15 mg/mg Normal [facility] Comment on above: Performed By: #### C HM7 #### [facility] (DEFAULT) [address] [place] [address] PT,INR,PTTon 05-14-2024 aPTT Coag (PPP) [Time] 37.2 s High [facility] INR Coag (Bld) [Relative time] 2.3 {INR} High 0.9 - 1.1 [facility] Interpretation and review of laboratory results Abnormal [facility] PT Coag (PPP) [Time] 25.3 s High [facility] aPTT Coag (Bld) [Time] 37.2 s High 24.0-34.3 [facility] Comment on above: Performed By: #### P TPTT #### [facility] (DEFAULT) [address] [place] [address] INR Coag (PPP) [Relative time] 2.3 {INR} High 0.9-1.1 [facility] Comment on above: Performed By: #### P TPTT #### [facility] (DEFAULT) [address] [place] [address] PT Coag (PPP) [Time] 25.3 s High 11.9-14.2 [facility] Comment on above: Performed By: #### P TPTT #### [facility] (DEFAULT) [address] [place] [address] TYPE AND SCREEN - PREADMISSI ONon 05-14-2024 ABO/RH(D) TYPE Positive [facility] ABO/RH(D) TYPE Positive Normal [facility] Comment on above: Performed By: #### X MPO #### [facility] (DEFAULT) [address] [place] [id number] Telephoneon 05-14-2024 Telephone [phone] Josh Venegas el E 1965 M Date Provider Department Center 05/14/2024 [facility] Family History Problem Relation Age of Onset COPD Father Other Father Family Status - Relation Status Age at Father Reason for Visit and Comments: increased aib burden [Other] Normal [facility] Telephoneon 04-27-2024 Telephone [phone] Josh Venegas el E 1965 M Date Provider Department Center 04/27/[address] [place], [place] [address]NADINE [facility] Pavi Family History Problem Relation Age of Onset COPD Father Other Father Family Status - Relation Status Age at Father Normal [facility] Telephoneon 04-15-2024 Telephone [phone] [facility] [place] [facility] 1965 M Date Provider Department Center 04/15/[address] [place] [address] [facility] Pavi Family History Problem Relation Age of Onset COPD Father Other Father Family Status - Relation Status Age at Father Normal [facility] CBC,PLATELETSon 04-13-2024 Erythrocyte distribution width (RBC) [Ratio] 13.4 % 10.9 - 14.3 % [facility] Hematocrit (Bld) [Volume fraction] 42.3 % 39.6 - 48.8 % [facility] Hemoglobin (Bld) [Mass/Vol] 14.1 g/dL 13.4 - 16.8 g/dL [facility] Interpretation and review of laboratory results Normal [facility] MCH (RBC) [Entitic mass] 31.1 pg 26.1 - 33.3 pg [facility] MCHC (RBC) [Mass/Vol] 33.3 g/dL 31.9 - 36.5 g/dL [facility] MCV (RBC) [Entitic vol] 93.4 fL 79.0 - 94.5 fL [facility] Platelet mean volume (Bld) [Entitic vol] 10.0 fL 8.7 - 12.3 fL [facility] Platelets (Bld) [#/Vol] 219 10*3/uL 146 - 337 K/uL [facility] RBC (Bld) [#/Vol] 4.53 10*6/uL [facility] WBC (Bld) [#/Vol] 8.16 10*3/uL 3.73 - 10. 10 K/uL [facility] Hematocrit (Bld) [Volume fraction] 42.3 % Normal 39.6-48.8 [facility] Comment on above: Performed By: #### P TPTT #### [facility] (DEFAULT) [address] [place] [address] Hemoglobin (Bld) [Mass/Vol] 14.1 g/dL Normal 13.4-16.8 [facility] Comment on above: Performed By: #### P TPTT #### [facility] (DEFAULT) [address] [place] [address] MCV (RBC) [Entitic vol] 93.4 fL Normal 79.0-94.5 [facility] Comment on above: Performed By: #### P TPTT #### [facility] (DEFAULT) [address] [place] [address] Mean Cell Hgb 31.1 pg Normal 26.1-33.3 [facility] Comment on above: Performed By: #### P TPTT #### [facility] (DEFAULT) [address] [place] [address] Mean Cell Hgb Conc 33.3 g/dL Normal 31.9-36.5 [facility] Comment on above: Performed By: #### P TPTT #### [facility] (DEFAULT) [address] [place] [address] Platelet mean volume (Bld) [Entitic vol] 10.0 fL Normal 8.7-12.3 [facility] Comment on above: Performed By: #### P TPTT #### [facility] (DEFAULT) [address] [place] [address] Platelets (Bld) [#/Vol] 219 10*3/uL Normal 146-337 [facility] Comment on above: Performed By: #### P TPTT #### [facility] (DEFAULT) [address] [place] [address] RBC (Bld) [#/Vol] 4.53 10*6/uL Normal 4.38-5.83 [facility] Comment on above: Performed By: #### P TPTT #### [facility] (DEFAULT) [address] [place] [address] RBC Distribution 13.4 % Normal 10.9-14.3 [facility] Comment on above: Performed By: #### P TPTT #### [facility] (DEFAULT) [address] [place] [address] WBC (Bld) [#/Vol] 8.16 10*3/uL Normal 3.73-10.10 [facility] Comment on above: Performed By: #### P TPTT #### [facility] (DEFAULT) [address] [place] [address] CHEM 7 (LYTES,BUN,CREA,GLUC) on 04-13-2024 Anion gap [Moles/Vol] 13 mmol/L 7 - 17 mmol/L [facility] Chloride [Moles/Vol] 105 mmol/L 98 - 10 8 mmol/L [facility] CO2 [Moles/Vol] 22 mmol/L 21 - 31 mmol/L [facility] Creatinine [Mass/Vol] 1.08 mg/dL 0.70 - 1.30 mg/dL [facility] eGFR, CKD-EPI, Male 80 - PINF [facility] Comment on above: Reported eGFR is bas ed on the CKD-EPI 2020 equation using creatinine, age, and sex. Glucose [Mass/Vol] 94 mg/dL 70 - 99 mg/dL [facility] Osmolality Calc [Osmolality] 288 [facility] Potassium [Moles/Vol] 4.3 mmol/L 3.5 - 5.0 mmol/L [facility] Sodium [Moles/Vol] 136 mmol/L 135 - 145 mmol/L [facility] Urea nitrogen [Mass/Vol] 19 mg/dL 7 - 25 mg/dL [facility] Urea nitrogen/Creatinine [Mass ratio] 18 mg/mg [facility] Anion gap [Moles/Vol] 13 mmol/L Normal 7-17 [facility] Comment on above: Performed By: #### B ADDRESSING MACHINE OPERATOR #### [facility] (DEFAULT) [address] [address] Chloride [Moles/Vol] 105 mmol/L Normal 98-108 [facility] Comment on above: Performed By: #### B ADDRESSING MACHINE OPERATOR #### [facility] (DEFAULT) [address] [address] CO2 [Moles/Vol] 22 mmol/L Normal 21-31 [facility] Comment on above: Performed By: #### B ADDRESSING MACHINE OPERATOR #### [facility] (DEFAULT) [address] [address] Creatinine [Mass/Vol] 1.08 mg/dL Normal 0.70-1.30 [facility] Comment on above: Performed By: #### B ADDRESSING MACHINE OPERATOR #### [facility] (DEFAULT) [address] [address] GFR/1.73 sq M.predicted among non-blacks MDRD (S/P/Bld) [Vol rate/Area] 80 mL/min/{1.73_m2} Normal >=60 [facility] Comment on above: Result Comment: Repo rted eGFR is based on the CKD-EPI 2020 equation using creatinine, age, and sex. Performed By: #### B ADDRESSING MACHINE OPERATOR #### [facility] (DEFAULT) [address] [place] [address] Glucose [Mass/Vol] 94 mg/dL Normal 70-99 [facility] Comment on above: Performed By: #### B ADDRESSING MACHINE OPERATOR #### [facility] (DEFAULT) [address] [place] [address] Osmolality [Osmolality] 288 mosm/kg Normal 278-305 [facility] Comment on above: Performed By: #### B ADDRESSING MACHINE OPERATOR #### [facility] (DEFAULT) [address] [place] [address] Potassium [Moles/Vol] 4.3 mmol/L Normal 3.5-5.0 [facility] Comment on above: Performed By: #### B ADDRESSING MACHINE OPERATOR #### [facility] (DEFAULT) [address] [place] [address] Sodium [Moles/Vol] 136 mmol/L Normal 135-145 [facility] Comment on above: Performed By: #### B ADDRESSING MACHINE OPERATOR #### [facility] (DEFAULT) [address] [place] [address] 66147 Urea nitrogen [Mass/Vol] 19 mg/dL Normal 7-25 [facility] Comment on above: Performed By: #### B ADDRESSING MACHINE OPERATOR #### [facility] (DEFAULT) [address] [place] [address]39 Urea nitrogen/Creatinine [Mass ratio] 18 mg/mg Normal [facility] Comment on above: Performed By: #### B ADDRESSING MACHINE OPERATOR #### [facility] (DEFAULT) [address] [address] Cardiac catheterization stud yOrdered By: Elisabet Barnhart on 04-13-2024 Body surface area Derived from formula 2.42 m2 [facility] Work Phone: [facility] Work Phone: Cardiac catheterization stud yon 04-13-2024 Impression Non-obstructive coronary artery disease. Recommendations: Continue aggressive risk factor modification and medical management for CAD. Right radial artery access was started initially but unable to pass catheters beyond brachial artery due to significant spasm that was non-responsive to nitroglycerin. If future procedures are required, would recommend femoral access. ------ Access: Right radial artery Right femoral artery Coronary angiography: The left main is angiographically normal.. The left anterior descending (LAD) has moderate non-obstructive disease throughout with a 50% proximal LAD lesion. The left circumflex (LCx) has mild disease throughout. The right coronary artery is has mild disease throughout with a 40% mid RCA lesion and a 40% distal RCA lesion. Right dominant coronary arterial circulation. Left heart catheterization: The LVEDP is normal at 12 mmHg. There is no gradient on LV-Ao pullback. Percutaneous coronary intervention: None Coronary Findings Diagnostic Dominance: Right Left Main: The vessel is angiographically normal. Left Anterior Descending: There is mild diffuse disease throughout the vessel. Prox LAD lesion is 50% stenosed. Left Circumflex: There is mild diffuse disease throughout the vessel. Right Coronary Artery: There is mild diffuse disease throughout the vessel. Mid RCA lesion is 40% stenosed. Dist RCA lesion is 40% stenosed. Intervention No interventions have been documented. [facility] INVASIVE CARDIOVASCULAR PROC EDUREon 04-13-2024 INVASIVE CARDIOVASCULAR PROCEDURE Impression Non-obstructive coronary artery disease. Recommendations: Continue aggressive risk factor modification and medical management for CAD. Right radial artery access was started initially but unable to pass catheters beyond brachial artery due to significant spasm that was non-responsive to nitroglycerin. If future procedures are required, would recommend femoral access. Access: Right radial artery Right femoral artery Coronary angiography: The left main is angiographically normal.. The left anterior descending (LAD) has moderate non-obstructive disease throughout with a 50% proximal LAD lesion. The left circumflex (LCx) has mild disease throughout. The right coronary artery is has mild disease throughout with a 40% mid RCA lesion and a 40% distal RCA lesion. Right dominant coronary arterial circulation. Left heart catheterization: The LVEDP is normal at 12 mmHg. There is no gradient on LV-Ao pullback. Percutaneous coronary intervention: None Table formatting from the original result was not included. Images from the original result were not included. Tania Vneegas Invasive Cardiology Cath Procedure Ordering Physician: ANDREW ADAMS Order #: [id number] Study Date: 04/10/2024 Patient Information Name MRN Description Tania Venegas [id number] 58 y.o. male Location Name Address [address] [address] Physicians Panel Physicians Referring Physician Case Authorizing Physician Elisabet Barnhart MD (Primary) MD Andrew Daniel PA-C Steven J Mould, MD (Fellow) CC Referring Recipient Method Contact Information Oliver Springer Jr., DO Fax ? Mojgan Zelaya MD Fax ? Alexander Cox MD In Basket ? Procedures ULTRASOUND GUIDED ACCESS CORONARY ANGIOGRAM WITH LEFT HEART CATH Indications AICD discharge [Z45.02 (ICD-10-CM)] Conclusion Impression Non-obstructive coronary artery disease. Recommendations: Continue aggressive risk factor modification and medical management for CAD. Right radial artery access was started initially but unable to pass catheters beyond brachial artery due to significant spasm that was non-responsive to nitroglycerin. If future procedures are required, would recommend femoral access. Access: Right radial artery Right femoral artery Coronary angiography: The left main is angiographically normal.. The left anterior descending (LAD) has moderate non-obstructive disease throughout with a 50% proximal LAD lesion. The left circumflex (LCx) has mild disease throughout. The right coronary artery is has mild disease throughout with a 40% mid RCA lesion and a 40% distal RCA lesion. Right dominant coronary arterial circulation. Left heart catheterization: The LVEDP is normal at 12 mmHg. There is no gradient on LV-Ao pullback. Percutaneous coronary intervention: None Medical History Diagnosis Date Comment Source A-fib Arrhythmia Arthritis Atherosclerotic heart disease [place] coronary artery w/angina pectoris 04/10/2024 Bradycardia Carcinoma of colon Chest pain secondary to pericarditis CHF (congestive heart failure) Diastolic dysfunction Hypertension Lymphoma Nonischemic congestive cardiomyopathy Pacemaker Restless legs Sleep apnea Systolic dysfunction Systolic heart failure s/p biventricular implantable cardioveter defibrillator placement Medical History - Pertinent Negatives Pertinent Negative Date Comment Source Anemia 12/10/2018 Asthma 12/10/2018 Bleeding disorder 12/10/2018 COPD (chronic obstructive pulmonary disease) 12/10/2018 Depression 12/10/2018 Diabetes mellitus 12/10/2018 GERD (gastroesophageal reflux disease) 12/10/2018 Glaucoma 12/10/2018 Hepatitis 12/10/2018 HIV (human immunodeficiency virus infection) 12/10/2018 Hyperlipidemia 12/10/2018 Hyperthyroidism 12/10/2018 Hypothyroidism 12/10/2018 Liver disease 12/10/2018 DE (myocardial infarction) 12/10/2018 Migraine 12/10/2018 Renal disease 12/10/2018 Seizure 12/10/2018 Sickle cell anemia 12/10/2018 Stroke 12/10/2018 TIA (transient ischemic attack) 12/10/2018 Vascular disease 12/10/2018 Procedure The risks and alternatives of the procedure and sedation were explained. Informed consent was obtained. The patient was brought to the director of labor and delivery and placed on the table. The planned puncture sites were prepped and draped in the usual sterile fashion. Coronary Findings Diagnostic Dominance: Right Left Main The vessel is angiographically normal. Left Anterior Descending There is mild diffuse disease throughout the vessel. Prox LAD lesion is 50% stenosed. Left Circumflex There is mild diffuse disease throughout the vessel. Right Co (more content not included)... Normal [facility] MAGNESIUMon 04-13-2024 Interpretation and review of laboratory results Normal [facility] Magnesium [Mass/Vol] 1.9 mg/dL 1.6 - 2 .6 mg/dL [facility] Magnesium [Mass/Vol] 1.9 mg/dL Normal 1.6-2.6 [facility] Comment on above: Performed By: #### B ADDRESSING MACHINE OPERATOR #### [facility] (DEFAULT) [address] [place] [address] MR Heart cine for blood flow velocity mapping W contrast [place] 04-13-2024 [facility] Report Name: TANIA VENEGAS Sony : 1965 Scan Date: 2024-04-13 12:00:01 Electronically signed by Trent Cesar 14:08:58 VITALS HEIGHT: 72.99 in (185.40 cm) WEIGHT: 258.50 lbs (117.25 kgs) BSA: 2.40 m^2 BP: 101 / 65 mmHg BASELINE HR: 65 BPM FINAL IMPRESSION Severe biventricular systolic dysfunction with predominantly non-ischemic fibrosis. Findings are non-specific, but fibrosis pattern can be seen in prior myocarditis or cardiac sarcoidosis. 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 CARDIAC MRI Cardiac device related artifact limits image quality and reliability of interpretation. LEFT VENTRICLE: LV cavity is mildly enlarged. LV systolic function is severely decreased globally with mid inferior akinesis. Quantitative LVEF 26 %. VIABILITY: Late gadolinium enhancement imaging demonstrates prominent subepicardial to midwall enhancement in the basal anterior, anteroseptal and inferoseptal ricketts in a non-ischemic fibrosis pattern, as well as more subendocardial enhancement in the basal inferior and inferolateral ricketts. There is also a focus of near transmural fibrosis in the mid inferior wall. RIGHT VENTRICLE: RV cavity size is normal. RV systolic function is moderately decreased globally. RV pacemaker/defibrillator wire noted. Quantitative RVEF 34 %. LV/RV SEPTUM: There is paradoxical septal motion (paced). LEFT ATRIUM: LA is mildly enlarged. RIGHT ATRIUM: RA cavity size is normal. RA pacemaker/defibrillator wire noted. PLEURAL EFFUSION: There is no pleural effusion. AORTIC VALVE: Peak aortic valve velocity 1.5 m/sec. MITRAL VALVE: There is trivial mitral regurgitation. TRICUSPID VALVE: There is trivial tricuspid regurgitation. AORTIC ROOT: The visualized aortic root is normal. OTHER FINDINGS: No definitive myocardial edema/inflammation by T2 mapping within the limitations of device related artifact. Elevated [place] T1 to 1095 ms (normal <1084 ms) and ECV to 35% (normal <31%), suggestive of diffuse interstitial expansion/ fibrosis. CORE EXAM MEASUREMENTS VOLUMETRIC ANALYSIS . . LV Reference RV Reference +-----+ +---- --+ +------+ + EDV ml 268 (113-196) 188 (111-210) ml/m^2 112 (62-97) 78 (59-105) ESV ml 197 (29-74) 123 (25-85) ml/m^2 82 (15-37) 51 (13-42) CO L/min 4.11 3.74 L/min/m^2 1.71 1.56 g/m^2 SV ml 71 (75-131) 64 (72-140) ml/m^2 30 (41-65) 27 (38-70) EF % 26 (58-76) 34 (53-79) '-----+ +---- --+ +------+ ' CARDIAC OUTPUT HR: 58 BPM LV DIMENSIONS WALL THICKNESS - ANTEROSEPTAL: 0.7 cm WALL THICKNESS - INFEROLATERAL: 0.7 cm LV BARTOLOME: 6.7 cm LV ESD: 5.3 cm LA DIMENSIONS (LV SYSTOLE) DIAMETER: 5.3 cm AREA - 2 CHAMBER: 31 cm^2 LENGTH - 2 CHAMBER: 6.7 cm AREA - 4 CHAMBER: 33 cm^2 LENGTH - 4 CHAMBER: 7.6 cm VOLUME: 130 ml VOLUME NORMALIZED: 54.1 ml/m^2 RA DIMENSIONS (RV SYSTOLE) AREA - 4 CHAMBER: 24 cm^2 LENGTH - 4 CHAMBER: 5.6 cm EXTRACELLULAR VOLUME ME (more content not included)... CARDIOLOGY Trent Cesar MD - 04/13/2024 [facility]MR Report Name: TANIA VENEGAS: 1965 Scan Date: 2024-04-13 12:00:01 Electronically signed by Trent Cesar 14:08:58 VITALS ====== ======== HEIGHT: 72.99 in (185.40 cm) WEIGHT: 258.50 lbs (117.25 kgs) BSA: 2.40 m^2 BP: 101 / 65 mmHg BASELINE HR: 65 BPM FINAL IMPRESSION ====== ======== Severe biventricular systolic dysfunction with predominantly non-ischemic fibrosis. Findings are non-specific, but fibrosis pattern can be seen in prior myocarditis or cardiac sarcoidosis. 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 CARDIAC MRI Cardiac device related artifact limits image quality and reliability of interpretation. LEFT VENTRICLE: LV cavity is mildly enlarged. LV systolic function is severely decreased globally with mid inferior akinesis. Quantitative LVEF 26 %. VIABILITY: Late gadolinium enhancement imaging demonstrates prominent subepicardial to midwall enhancement in the basal anterior, anteroseptal and inferoseptal ricketts in a non-ischemic fibrosis pattern, as well as more subendocardial enhancement in the basal inferior and inferolateral ricketts. There is also a focus of near transmural fibrosis in the mid inferior wall. RIGHT VENTRICLE: RV cavity size is normal. RV systolic function is moderately decreased globally. RV pacemaker/defibrillator wire noted. Quantitative RVEF 34 %. LV/RV SEPTUM: There is paradoxical septal motion (paced). LEFT ATRIUM: LA is mildly enlarged. RIGHT ATRIUM: RA cavity size is normal. RA pacemaker/defibrillator wire noted. PLEURAL EFFUSION: There is no pleural effusion. AORTIC VALVE: Peak aortic valve velocity 1.5 m/sec. MITRAL VALVE: There is trivial mitral regurgitation. TRICUSPID VALVE: There is trivial tricuspid regurgitation. AORTIC ROOT: The visualized aortic root is normal. OTHER FINDINGS: No definitive myocardial edema/inflammation by T2 mapping within the limitations of device related artifact. Elevated [place] T1 to 1095 ms (normal <1084 ms) and ECV to 35% (normal <31%), suggestive of diffuse interstitial expansion/ fibrosis. CORE EXAM ====== ======== MEASUREMENTS ------ VOLUMETRIC ANALYSIS . . LV Reference RV Reference +-----+ +---- --+ +------+ + EDV ml 268 (113-196) 188 (111-210) ml/m^2 112 (62-97) 78 (59-105) ESV ml 197 (29-74) 123 (25-85) ml/m^2 82 (15-37) 51 (13-42) CO L/min 4.11 3.74 L/min/m^2 1.71 1.56 g/m^2 SV ml 71 (75-131) 64 (72-140) ml/m^2 30 (41-65) 27 (38-70) EF % 26 (58-76) 34 (53-79) '-----+ +---- --+ +------+ ' CARDIAC OUTPUT HR: 58 BPM LV DIMENSIONS WALL THICKNESS - ANTEROSEPTAL: 0.7 cm WALL THICKNESS - INFEROLATERAL: 0.7 cm LV BARTOLOME: 6.7 cm LV ESD: 5.3 cm LA DIMENSIONS (LV SYSTOLE) DIAMETER: 5.3 cm AREA - 2 CHAMBER: 31 cm^2 LENGTH - 2 CHAMBER: 6.7 cm AREA - 4 CHAMBER: 33 cm^2 LENGTH - 4 CHAMBER: 7.6 cm VOLUME: 130 ml VOLUME NORMALIZED: 54.1 ml/m^2 RA DIMENSIONS (RV SYSTOLE) AREA - 4 CHAMBER: 24 cm^2 LENGTH - 4 CHAMBER: 5.6 cm EXTRACELLULAR VOLUME MEASUREMENT PRE-CONTRAST T1 MYOCARDIUM: 1095 msec PRE-CONTRAST T1 LV CAVITY: 1654 msec POST-CONTRAST T1 MYOCARDIUM: 279 msec POST-CONTRAST T1 LV CAVITY: 220 msec HEMATOCRIT: 42.3 % HEMATOCRIT DATE: ECV: 39 % SCAN INFO ====== ======== GENERAL ------ SCANNER (more content not included)... 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 Findings are non-specific, but fibrosis pattern can be seen in prior myocarditis or cardiac sarcoidosis. 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 CARDIAC MRI Cardiac device related artifact limits image quality and reliability of interpretation. LEFT VENTRICLE: LV cavity is mildly enlarged. LV systolic function is severely decreased globally with mid inferior akinesis. Quantitative LVEF 26 %. VIABILITY: Late gadolinium enhancement imaging demonstrates prominent subepicardial to midwall enhancement in the basal anterior, anteroseptal and inferoseptal ricketts in a non-ischemic fibrosis pattern, as well as more subendocardial enhancement in the basal inferior and inferolateral ricketts. There is also a focus of near transmural fibrosis in the mid inferior wall. RIGHT VENTRICLE: RV cavity size is normal. RV systolic function is moderately decreased globally. RV pacemaker/defibrillator wire noted. Quantitative RVEF 34 %. LV/RV SEPTUM: There is paradoxical septal motion (paced). LEFT ATRIUM: LA is mildly enlarged. RIGHT ATRIUM: RA cavity size is normal. RA pacemaker/defibrillator wire noted. PLEURAL EFFUSION: There is no pleural effusion. AORTIC VALVE: Peak aortic valve velocity 1.5 m/sec. MITRAL VALVE: There is trivial mitral regurgitation. TRICUSPID VALVE: There is trivial tricuspid regurgitation. AORTIC ROOT: The visualized aortic root is normal. OTHER FINDINGS: No definitive myocardial edema/inflammation by T2 mapping within the limitations of device related artifact. Elevated [place] T1 to 1095 ms (normal <1084 ms) and ECV to 35% (normal <31%), suggestive of diffuse interstitial expansion/ fibrosis. CORE EXAM MEASUREMENTS VOLUMETRIC ANALYSIS . . LV Reference RV Reference +-----+ +---- --+ +------+ + EDV ml 268 (113-196) 188 (111-210) ml/m^2 112 (62-97) 78 (59-105) ESV ml 197 (29-74) 123 (25-85) ml/m^2 82 (15-37) 51 (13-42) CO L/min 4.11 3.74 L/min/m^2 1.71 1.56 g/m^2 SV ml 71 (75-131) 64 (72-140) ml/m^2 30 (41-65) 27 (38-70) EF % 26 (58-76) 34 (53-79) '-----+ +---- --+ +------+ ' CARDIAC OUTPUT HR: 58 BPM LV DIMENSIONS WALL THICKNESS - ANTEROSEPTAL: 0.7 cm WALL THICKNESS - INFEROLATERAL: 0.7 cm LV BARTOLOME: 6.7 cm LV ESD: 5.3 cm LA DIMENSIONS (LV SYSTOLE) DIAMETER: 5.3 cm AREA - 2 CHAMBER: 31 cm^2 LENGTH - 2 CHAMBER: 6.7 cm AREA - 4 CHAMBER: 33 cm^2 LENGTH - 4 CHAMBER: 7.6 cm VOLUME: 130 ml VOLUME NORMALIZED: 54.1 ml/m^2 RA DIMENSIONS (RV SYSTOLE) AREA - 4 CHAMBER: 24 cm^2 LENGTH - 4 CHAMBER: 5.6 cm EXTRACELLULAR VOLUME MEASUREMENT PRE-CONTRAST T1 MYOCARDIUM: 1095 msec PRE-CONTRAST T1 LV CAVITY: 1654 msec POST-CONTRAST T1 MYOCARDIUM: 279 msec POST-CONTRAST T1 LV CAVITY: 220 msec HEMATOCRIT: 42.3 % HEMATOCRIT DATE: ECV: 39 % SCAN INFO 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 Normal [facility] No Panel InformationOrdered By: Trent Cesar on 04-13-2024 [facility] Work Phone: No Panel Informationon 04-13 [facility] Radiology Study observation (narrative) [facility] PT,INR,PTTon 04-13-2024 aPTT Coag (PPP) [Time] 29.6 s [facility] INR Coag (Bld) [Relative time] 1.2 {INR} High 0.9 - 1.1 [facility] Interpretation and review of laboratory results Abnormal [facility] PT Coag (PPP) [Time] 15.5 s High [facility] aPTT Coag (Bld) [Time] 29.6 s Normal 24.0-34.3 [facility] Comment on above: Performed By: #### L [id number] #### [facility] (DEFAULT) [address] [place] [id number] INR Coag (PPP) [Relative time] 1.2 {INR} High 0.9-1.1 [facility] Comment on above: Performed By: #### L [id number] #### [facility] (DEFAULT) [address] [place] [address] PT Coag (PPP) [Time] 15.5 s High 11.9-14.2 [facility] Comment on above: Performed By: #### L [id number] #### [facility] (DEFAULT) [address] [place] [address] CHEM 7 (LYTES,BUN,CREA,GLUC) on 04-12-2024 Anion gap [Moles/Vol] 15 mmol/L 7 - 17 mmol/L [facility] Chloride [Moles/Vol] 104 mmol/L 98 - 10 8 mmol/L [facility] CO2 [Moles/Vol] 21 mmol/L 21 - 31 mmol/L [facility] Creatinine [Mass/Vol] 1.07 mg/dL 0.70 - 1.30 mg/dL [facility] eGFR, CKD-EPI, Male 80 - PINF [facility] Comment on above: Reported eGFR is bas ed on the CKD-EPI 2020 equation using creatinine, age, and sex. Glucose [Mass/Vol] 91 mg/dL 70 - 99 mg/dL [facility] Osmolality Calc [Osmolality] 286 [facility] Potassium [Moles/Vol] 4.8 mmol/L 3.5 - 5.0 mmol/L [facility] Sodium [Moles/Vol] 135 mmol/L 135 - 145 mmol/L [facility] Urea nitrogen [Mass/Vol] 18 mg/dL 7 - 25 mg/dL [facility] Urea nitrogen/Creatinine [Mass ratio] 17 mg/mg [facility] Anion gap [Moles/Vol] 15 mmol/L Normal 7-17 [facility] Comment on above: Performed By: #### Gisell LARES CHM7 ####[facility] (DEFAULT)[address] [place] [address] Chloride [Moles/Vol] 104 mmol/L Normal 98-108 [facility] Comment on above: Performed By: #### Gisell LARES CHM7 ####[facility] (DEFAULT)[address] [facility] [place] [address] CO2 [Moles/Vol] 21 mmol/L Normal 21-31 [facility] Comment on above: Performed By: #### Gisell LARES CHM7 ####[facility] (DEFAULT)[address] [facility] [place] [address] Creatinine [Mass/Vol] 1.07 mg/dL Normal 0.70-1.30 [facility] Comment on above: Performed By: #### Gisell LARES CHM7 ####[facility] (DEFAULT)[address] [facility] [place] [address] GFR/1.73 sq M.predicted among non-blacks MDRD (S/P/Bld) [Vol rate/Area] 80 mL/min/{1.73_m2} Normal >=60 [facility] Comment on above: Result Comment: Repo rted eGFR is based on the CKD-EPI 2020 equation using creatinine, age, and sex. Performed By: #### FAISAL DE7 ####[facility] (DEFAULT)[address] [place] [address] Glucose [Mass/Vol] 91 mg/dL Normal 70-99 [facility] Comment on above: Performed By: #### FAISAL DE7 ####[facility] (DEFAULT)[address] [place] [address] Osmolality [Osmolality] 286 mosm/kg Normal 278-305 [facility] Comment on above: Performed By: #### FAISAL DE7 ####[facility] (DEFAULT)[address] [place] [address] Potassium [Moles/Vol] 4.8 mmol/L Normal 3.5-5.0 [facility] Comment on above: Performed By: #### YNES DE ####[facility] (DEFAULT)[address] [place] [address] Sodium [Moles/Vol] 135 mmol/L Normal 135-145 [facility] Comment on above: Performed By: #### FAISAL DE7 ####[facility] (DEFAULT)[address] [place] [address] Urea nitrogen [Mass/Vol] 18 mg/dL Normal 7-25 [facility] Comment on above: Performed By: #### YNES DE ####[facility] (DEFAULT)[address] [place] [address] Urea nitrogen/Creatinine [Mass ratio] 17 mg/mg Normal [facility] Comment on above: Performed By: #### FAISAL DE7 ####[facility] (DEFAULT)[address] [facility] [place] [address] MAGNESIUMon 04-12-2024 Interpretation and review of laboratory results Normal [facility] Magnesium [Mass/Vol] 2.0 mg/dL 1.6 - 2 .6 mg/dL [facility] Magnesium [Mass/Vol] 2.0 mg/dL Normal 1.6-2.6 [facility] Comment on above: Performed By: #### M ARNAUD CHM7 ####[facility] (DEFAULT)[address] [place] [phone] No Panel Informationon 04-12 [facility] PT,INR,PTTon 04-12-2024 aPTT Coag (PPP) [Time] 26.0 s OS [facility] INR Coag (Bld) [Relative time] 1.2 {INR} High 0.9 - 1.1 [facility] Interpretation and review of laboratory results Abnormal [facility] PT Coag (PPP) [Time] 14.8 s High [facility] aPTT Coag (Bld) [Time] 26.0 s Normal 24.0-34.3 [facility] Comment on above: Performed By: #### P TPTT #### [facility] (DEFAULT) [address] [place] [address] INR Coag (PPP) [Relative time] 1.2 {INR} High 0.9-1.1 [facility] Comment on above: Performed By: #### P TPTT #### [facility] (DEFAULT) [address] [place] [phone] PT Coag (PPP) [Time] 14.8 s High 11.9-14.2 [facility] Comment on above: Performed By: #### P TPTT #### [facility] (DEFAULT) [address] [place] [address] 23907 CHEM 7 (LYTES,BUN,CREA,GLUC) on 04-11-2024 Anion gap [Moles/Vol] 11 mmol/L 7 - 17 mmol/L [facility] Chloride [Moles/Vol] 105 mmol/L 98 - 10 8 mmol/L [facility] CO2 [Moles/Vol] 24 mmol/L 21 - 31 mmol/L [facility] Creatinine [Mass/Vol] 0.89 mg/dL 0.70 - 1.30 mg/dL [facility] eGFR, CKD-EPI, Male - PINF [facility] Comment on above: Reported eGFR is bas ed on the CKD-EPI 2020 equation using creatinine, age, and sex. Glucose [Mass/Vol] 92 mg/dL 70 - 99 mg/dL [facility] Osmolality Calc [Osmolality] 286 [facility] Potassium [Moles/Vol] 4.3 mmol/L 3.5 - 5.0 mmol/L [facility] Sodium [Moles/Vol] 136 mmol/L 135 - 145 mmol/L [facility] Urea nitrogen [Mass/Vol] 15 mg/dL 7 - 25 mg/dL [facility] Urea nitrogen/Creatinine [Mass ratio] 17 mg/mg [facility] Anion gap [Moles/Vol] 11 mmol/L Normal 7-17 [facility] Comment on above: Performed By: #### T DEBORAH, FT4 #### [facility] (DEFAULT) [address] [place] [address]32 Chloride [Moles/Vol] 105 mmol/L Normal 98-108 [facility] Comment on above: Performed By: #### T DEBORAH, FT4 #### [facility] (DEFAULT) [address] [place] [address] CO2 [Moles/Vol] 24 mmol/L Normal 21-31 [facility] Comment on above: Performed By: #### T DEBORAH, FT4 #### [facility] (DEFAULT) [address] [place] [address] 15353 Creatinine [Mass/Vol] 0.89 mg/dL Normal 0.70-1.30 [facility] Comment on above: Performed By: #### T DEBORAH, FT4 #### [facility] (DEFAULT) [address] [place] [address] 38316 eGFR, CKD-EPI, Male > Normal >=60 [facility] Comment on above: Result Comment: Repo rted eGFR is based on the CKD-EPI 2020 equation using creatinine, age, and sex. Performed By: #### T DEBORAH, FT4 #### [facility] (DEFAULT) [address] [place] [address] 67569 Glucose [Mass/Vol] 92 mg/dL Normal 70-99 [facility] Comment on above: Performed By: #### Denny CABRERA, FT4 #### [facility] (DEFAULT) [address] [place] [address] 13285 Osmolality [Osmolality] 286 mosm/kg Normal 278-305 [facility] Comment on above: Performed By: #### Denny CABRERA, FT4 #### [facility] (DEFAULT) [address] [place] [address] 18442 Potassium [Moles/Vol] 4.3 mmol/L Normal 3.5-5.0 [facility] Comment on above: Performed By: #### Denny CABRERA, FT4 #### [facility] (DEFAULT) [address] [place] [address] 47270 Sodium [Moles/Vol] 136 mmol/L Normal 135-145 [facility] Comment on above: Performed By: #### Denny CABRERA, FT4 #### [facility] (DEFAULT) [address] [place] [address] 88329 Urea nitrogen [Mass/Vol] 15 mg/dL Normal 7-25 [facility] Comment on above: Performed By: #### T DEBORAH, FT4 #### [facility] (DEFAULT) [address] [place] [address] 57410 Urea nitrogen/Creatinine [Mass ratio] 17 mg/mg Normal [facility] Comment on above: Performed By: #### T DEBORAH, FT4 #### [facility] (DEFAULT) [address] [place] [address] 12101 MAGNESIUMon 04-11-2024 Interpretation and review of laboratory results Normal [facility] Magnesium [Mass/Vol] 2.2 mg/dL 1.6 - 2 .6 mg/dL [facility] Magnesium [Mass/Vol] 2.2 mg/dL Normal 1.6-2.6 [facility] Comment on above: Performed By: #### T SH, FT4 #### [facility] (DEFAULT) [address] [place] [address] 03710 No Panel Informationon 04-11 [facility] PT,INR,PTTOrdered By: Charisma Talamantes on 04-11-2024 aPTT Coag (PPP) [Time] 28.3 s [facility] INR Coag (Bld) [Relative time] 1.3 {INR} High 0.9 - 1.1 [facility] Interpretation and review of laboratory results Abnormal [facility] PT Coag (PPP) [Time] 16.0 s High [facility] PT,INR,PTTon 04-11-2024 aPTT Coag (Bld) [Time] 28.3 s Normal 24.0-34.3 [facility] Comment on above: Performed By: #### B ADDRESSING MACHINE OPERATOR #### [facility] (DEFAULT) [address] [place] [address] 08924 INR Coag (PPP) [Relative time] 1.3 {INR} High 0.9-1.1 [facility] Comment on above: Performed By: #### B ADDRESSING MACHINE OPERATOR #### [facility] (DEFAULT) [address] [place] [address] 22988 PT Coag (PPP) [Time] 16.0 s High 11.9-14.2 [facility] Comment on above: Performed By: #### B ADDRESSING MACHINE OPERATOR #### [facility] (DEFAULT) [address] [place] [address] 35813 CBC,PLATELETSon 04-10-2024 Erythrocyte distribution width (RBC) [Ratio] 13.5 % 10.9 - 14.3 % [facility] Hematocrit (Bld) [Volume fraction] 40.9 % 39.6 - 48.8 % [facility] Hemoglobin (Bld) [Mass/Vol] 13.5 g/dL 13.4 - 16.8 g/dL [facility] Interpretation and review of laboratory results Normal [facility] MCH (RBC) [Entitic mass] 30.3 pg 26.1 - 33.3 pg [facility] MCHC (RBC) [Mass/Vol] 33.0 g/dL 31.9 - 36.5 g/dL [facility] MCV (RBC) [Entitic vol] 91.7 fL 79.0 - 94.5 fL [facility] Platelet mean volume (Bld) [Entitic vol] 10.0 fL 8.7 - 12.3 fL [facility] Platelets (Bld) [#/Vol] 210 10*3/uL 146 - 337 K/uL [facility] RBC (Bld) [#/Vol] 4.46 10*6/uL [facility] WBC (Bld) [#/Vol] 7.05 10*3/uL 3.73 - 10. 10 K/uL [facility] Hematocrit (Bld) [Volume fraction] 40.9 % Normal 39.6-48.8 [facility] Comment on above: Performed By: #### S URGP #### [facility] (DEFAULT) [address] [place] [address] 70140 Hemoglobin (Bld) [Mass/Vol] 13.5 g/dL Normal 13.4-16.8 [facility] Comment on above: Performed By: #### S URGP #### [facility] (DEFAULT) [address] [place] [address] MCV (RBC) [Entitic vol] 91.7 fL Normal 79.0-94.5 [facility] Comment on above: Performed By: #### S URGP #### [facility] (DEFAULT) [address] [place] [address] Mean Cell Hgb 30.3 pg Normal 26.1-33.3 [facility] Comment on above: Performed By: #### S URGP #### [facility] (DEFAULT) [address] [address] Mean Cell Hgb Conc 33.0 g/dL Normal 31.9-36.5 [facility] Comment on above: Performed By: #### S URGP #### [facility] (DEFAULT) [address] [address] Platelet mean volume (Bld) [Entitic vol] 10.0 fL Normal 8.7-12.3 [facility] Comment on above: Performed By: #### S URGP #### [facility] (DEFAULT) [address] [address] Platelets (Bld) [#/Vol] 210 10*3/uL Normal 146-337 [facility] Comment on above: Performed By: #### S URGP #### [facility] (DEFAULT) [address] [address] RBC (Bld) [#/Vol] 4.46 10*6/uL Normal 4.38-5.83 [facility] Comment on above: Performed By: #### S URGP #### [facility] (DEFAULT) [address] [address] RBC Distribution 13.5 % Normal 10.9-14.3 [facility] Comment on above: Performed By: #### S URGP #### [facility] (DEFAULT) [address] [address] WBC (Bld) [#/Vol] 7.05 10*3/uL Normal 3.73-10.10 [facility] Comment on above: Performed By: #### S URGP #### [facility] (DEFAULT) [address] [address] CHEM 7 (LYTES,BUN,CREA,GLUC) on 04-10-2024 Anion gap [Moles/Vol] 14 mmol/L 7 - 17 mmol/L [facility] Chloride [Moles/Vol] 101 mmol/L 98 - 10 8 [facility] CO2 [Moles/Vol] 26 mmol/L 21 - 31 mmol/L [facility] Creatinine [Mass/Vol] 1.07 mg/dL 0.70 - 1.30 mg/dL [facility] eGFR, CKD-EPI, Male 80 - PINF [facility] Comment on above: Reported eGFR is bas ed on the CKD-EPI 2020 equation using creatinine, age, and sex. Glucose [Mass/Vol] 108 mg/dL High 70 - 99 mg/dL [facility] Interpretation and review of laboratory results Abnormal [facility] Osmolality Calc [Osmolality] 289 [facility] Potassium [Moles/Vol] 4.1 mmol/L 3.5 - 5.0 mmol/L [facility] Sodium [Moles/Vol] 137 mmol/L 135 - 145 mmol/L [facility] Urea nitrogen [Mass/Vol] 17 mg/dL 7 - 25 mg/dL [facility] Urea nitrogen/Creatinine [Mass ratio] 16 mg/mg [facility] Anion gap [Moles/Vol] 14 mmol/L Normal 7-17 [facility] Comment on above: Performed By: #### C HM7 ####[facility] (DEFAULT)[address] [place] [address] Chloride [Moles/Vol] 101 mmol/L Normal 98-108 [facility] Comment on above: Performed By: #### C HM7 ####[facility] (DEFAULT)[address] [place] [address] CO2 [Moles/Vol] 26 mmol/L Normal 21-31 [facility] Comment on above: Performed By: #### C HM7 ####[facility] (DEFAULT)[address] [facility] [place] [address] Creatinine [Mass/Vol] 1.07 mg/dL Normal 0.70-1.30 [facility] Comment on above: Performed By: #### C HM7 ####[facility] (DEFAULT)[address] [place] [address] GFR/1.73 sq M.predicted among non-blacks MDRD (S/P/Bld) [Vol rate/Area] 80 mL/min/{1.73_m2} Normal >=60 [facility] Comment on above: Result Comment: Repo rted eGFR is based on the CKD-EPI 2020 equation using creatinine, age, and sex. Performed By: #### C HM7 ####[facility] (DEFAULT)[address] [place] [address] Glucose [Mass/Vol] 108 mg/dL High 70-99 [facility] Comment on above: Performed By: #### C HM7 ####[facility] (DEFAULT)[address] [place] [address] Osmolality [Osmolality] 289 mosm/kg Normal 278-305 [facility] Comment on above: Performed By: #### C HM7 ####[facility] (DEFAULT)[address] [place] [address] Potassium [Moles/Vol] 4.1 mmol/L Normal 3.5-5.0 [facility] Comment on above: Performed By: #### C HM7 ####[facility] (DEFAULT)[address] [place] [address] Sodium [Moles/Vol] 137 mmol/L Normal 135-145 [facility] Comment on above: Performed By: #### C HM7 ####[facility] (DEFAULT)[address] [place] [address] Urea nitrogen [Mass/Vol] 17 mg/dL Normal 7-25 [facility] Comment on above: Performed By: #### C HM7 ####[facility] (DEFAULT)[address] [place] [address] Urea nitrogen/Creatinine [Mass ratio] 16 mg/mg Normal [facility] Comment on above: Performed By: #### C HM7 ####[facility] (DEFAULT)[address] [place] [address] CONTINUOUS CARDIAC MONITORIN G STRIPOrdered By: Unassigned Pacs on 04-10-2024 [facility] Work Phone: Cardiac catheterization stud yon 04-10-2024 [facility] Radiology Study observation (narrative) [facility] Radiology Study observation (narrative) [facility] PT,INR,PTTon 04-10-2024 aPTT Coag (PPP) [Time] 33.8 s OS [facility] INR Coag (Bld) [Relative time] 1.9 {INR} High 0.9 - 1.1 [facility] Interpretation and review of laboratory results Abnormal [facility] PT Coag (PPP) [Time] 21.7 s High [facility] aPTT Coag (Bld) [Time] 33.8 s Normal 24.0-34.3 [facility] Comment on above: Performed By: #### P TPTT #### [facility] (DEFAULT) [address] [place] [address] INR Coag (PPP) [Relative time] 1.9 {INR} High 0.9-1.1 [facility] Comment on above: Performed By: #### P TPTT #### [facility] (DEFAULT) [address] [place] [address] 9[address] PT Coag (PPP) [Time] 21.7 s High 11.9-14.2 [facility] Comment on above: Performed By: #### P TPTT #### [facility] (DEFAULT) [address] [place] [address] 13741 B-TYPE NATRIURETIC PEPTIDE ( BRAIN)on 04-09-2024 Interpretation and review of laboratory results Abnormal [facility] Natriuretic peptide B (Bld) [Mass/Vol] 145 pg/mL High 0 - 100 pg/mL [facility] Natriuretic peptide B (Bld) [Mass/Vol] 145 pg/mL High 0-100 [facility] Comment on above: Order Comment: If no t done in ED. Performed By: #### T SH, FT4 #### [facility] (DEFAULT) [address] [place] [address] CALCIUMon 04-09-2024 Calcium [Mass/Vol] 8.9 mg/dL 8.6 - 10. 5 mg/dL [facility] Calcium [Mass/Vol] 8.9 mg/dL Normal 8.6-10.5 [facility] Comment on above: Performed By: #### X M #### [facility] (DEFAULT) [address] [place] [address] CBC AND ELECTRONIC DIFFon Basophils (Bld) [#/Vol] K/uL 0.00 - 0.09 K/uL [facility] Basophils/100 WBC (Bld) 0.3 % [facility] Differential cell count method Nom (Bld) Electronic Differential [facility] Eosinophils (Bld) [#/Vol] 0.09 10*3/uL 0.00 - 0.48 K/uL [facility] Eosinophils/100 WBC (Bld) 1.3 % [facility] Erythrocyte distribution width (RBC) [Ratio] 13.6 % 10.9 - 14.3 % [facility] Hematocrit (Bld) [Volume fraction] 40.5 % 39.6 - 48.8 % [facility] Hemoglobin (Bld) [Mass/Vol] 13.4 g/dL 13.4 - 16.8 g/dL [facility] Immature granulocytes (Bld) [#/Vol] K/uL NINF - 0.07 K/uL [facility] Immature granulocytes/100 WBC (Bld) 0.4 % [facility] Lymphocytes (Bld) [#/Vol] 1.89 10*3/uL 0.83 - 3.57 K/uL [facility] Lymphocytes/100 WBC (Bld) 27.2 % [facility] MCH (RBC) [Entitic mass] 30.6 pg 26.1 - 33.3 pg [facility] MCHC (RBC) [Mass/Vol] 33.1 g/dL 31.9 - 36.5 g/dL [facility] MCV (RBC) [Entitic vol] 92.5 fL 79.0 - 94.5 fL [facility] Monocytes (Bld) [#/Vol] 0.59 10*3/uL 0.24 - 0.93 K/uL [facility] Monocytes/100 WBC (Bld) 8.5 % [facility] Neutrophils (Bld) [#/Vol] 4.34 10*3/uL 1.57 - 6.19 K/uL [facility] Nucleated RBC/100 WBC (Bld) [Ratio] 0.0 % NINF [facility] Platelet mean volume (Bld) [Entitic vol] 10.2 fL 8.7 - 12.3 fL [facility] Platelets (Bld) [#/Vol] 220 10*3/uL 146 - 337 K/uL [facility] RBC (Bld) [#/Vol] 4.38 10*6/uL [facility] Segmented neutrophils/100 WBC (Bld) 62.3 % [facility] WBC (Bld) [#/Vol] 6.96 10*3/uL 3.73 - 10. 10 K/uL [facility] Abs Baso Auto < Normal 0.00-0.09 [facility] Comment on above: Performed By: #### X MPO #### [facility] (DEFAULT) [address] [address] Basophils/100 WBC (Bld) 0.3 % Normal [facility] Comment on above: Performed By: #### X MPO #### [facility] (DEFAULT) [address] [address] DIFF STATUS Electronic Differential Normal [facility] Comment on above: Performed By: #### X MPO #### [facility] (DEFAULT) [address] [address] Eosinophils (Bld) [#/Vol] 0.09 10*3/uL Normal 0.00-0.48 [facility] Comment on above: Performed By: #### X MPO #### [facility] (DEFAULT) [address] [address] Eosinophils/100 WBC (Bld) 1.3 % Normal [facility] Comment on above: Performed By: #### X MPO #### [facility] (DEFAULT) [address] [address] Hematocrit (Bld) [Volume fraction] 40.5 % Normal 39.6-48.8 [facility] Comment on above: Performed By: #### X MPO #### [facility] (DEFAULT) [address] [address] Hemoglobin (Bld) [Mass/Vol] 13.4 g/dL Normal 13.4-16.8 [facility] Comment on above: Performed By: #### X MPO #### [facility] (DEFAULT) [address] [address] Immature Grans % 0.4 % Normal [facility] Comment on above: Performed By: #### X MPO #### [facility] (DEFAULT) [address] [address] Immature Grans Absolute < Normal <=0.07 [facility] Comment on above: Performed By: #### X MPO #### [facility] (DEFAULT) [address] [address] Lymphocytes (Bld) [#/Vol] 1.89 10*3/uL Normal 0.83-3.57 [facility] Comment on above: Performed By: #### X MPO #### [facility] (DEFAULT) [address] [address] Lymphocytes/100 WBC (Bld) 27.2 % Normal [facility] Comment on above: Performed By: #### X MPO #### [facility] (DEFAULT) [address] [place] [address] MCV (RBC) [Entitic vol] 92.5 fL Normal 79.0-94.5 [facility] Comment on above: Performed By: #### X MPO #### [facility] (DEFAULT) [address] [place] [address] Mean Cell Hgb 30.6 pg Normal 26.1-33.3 [facility] Comment on above: Performed By: #### X MPO #### [facility] (DEFAULT) [address] [place] [address] Mean Cell Hgb Conc 33.1 g/dL Normal 31.9-36.5 [facility] Comment on above: Performed By: #### X MPO #### [facility] (DEFAULT) [address] [place] [address] Monocytes (Bld) [#/Vol] 0.59 10*3/uL Normal 0.24-0.93 [facility] Comment on above: Performed By: #### X MPO #### [facility] (DEFAULT) [address] [place] [address] Monocytes/100 WBC (Bld) 8.5 % Normal [facility] Comment on above: Performed By: #### X MPO #### [facility] (DEFAULT) [address] [place] [address] Nucleated RBC 0.0 /100 WBC Normal <=0.2 [facility] Comment on above: Performed By: #### X MPO #### [facility] (DEFAULT) [address] [place] [address] Platelet mean volume (Bld) [Entitic vol] 10.2 fL Normal 8.7-12.3 [facility] Comment on above: Performed By: #### X MPO #### [facility] (DEFAULT) [address] [place] [address] Platelets (Bld) [#/Vol] 220 10*3/uL Normal 146-337 [facility] Comment on above: Performed By: #### X MPO #### [facility] (DEFAULT) [address] [place] [address] RBC (Bld) [#/Vol] 4.38 10*6/uL Normal 4.38-5.83 [facility] Comment on above: Performed By: #### X MPO #### [facility] (DEFAULT) [address] [place] [address] RBC Distribution 13.6 % Normal 10.9-14.3 [facility] Comment on above: Performed By: #### X MPO #### [facility] (DEFAULT) [address] [place] [address] Segs + Bands Auto 62.3 % Normal [facility] Comment on above: Performed By: #### X MPO #### [facility] (DEFAULT) [address] [place] [address] Segs + Bands,Absolute Auto 4.34 K/uL Normal 1.57-6.19 [facility] Comment on above: Performed By: #### X MPO #### [facility] (DEFAULT) [address] [place] [address] WBC (Bld) [#/Vol] 6.96 10*3/uL Normal 3.73-10.10 [facility] Comment on above: Performed By: #### X MPO #### [facility] (DEFAULT) [address] [place] [address] CHEM 7 (LYTES,BUN,CREA,GLUC) on 04-09-2024 Anion gap [Moles/Vol] 15 mmol/L 7 - 17 mmol/L [facility] Chloride [Moles/Vol] 104 mmol/L 98 - 10 8 mmol/L [facility] CO2 [Moles/Vol] 23 mmol/L 21 - 31 mmol/L [facility] Creatinine [Mass/Vol] 1.18 mg/dL 0.70 - 1.30 mg/dL [facility] eGFR, CKD-EPI, Male 72 - PINF [facility] Comment on above: Reported eGFR is bas ed on the CKD-EPI 2020 equation using creatinine, age, and sex. Glucose [Mass/Vol] 114 mg/dL High 70 - 99 mg/dL [facility] Osmolality Calc [Osmolality] 291 [facility] Potassium [Moles/Vol] 3.8 mmol/L 3.5 - 5.0 mmol/L [facility] Sodium [Moles/Vol] 138 mmol/L 135 - 145 mmol/L [facility] Urea nitrogen [Mass/Vol] 16 mg/dL 7 - 25 mg/dL [facility] Urea nitrogen/Creatinine [Mass ratio] 14 mg/mg [facility] Anion gap [Moles/Vol] 15 mmol/L Normal 7-17 [facility] Comment on above: Performed By: #### X M #### [facility] (DEFAULT) [address] [place] [address] Chloride [Moles/Vol] 104 mmol/L Normal 98-108 [facility] Comment on above: Performed By: #### X M #### [facility] (DEFAULT) [address] [place] [address]139 CO2 [Moles/Vol] 23 mmol/L Normal 21-31 [facility] Comment on above: Performed By: #### X M #### [facility] (DEFAULT) [address] [place] [address] Creatinine [Mass/Vol] 1.18 mg/dL Normal 0.70-1.30 [facility] Comment on above: Performed By: #### X M #### [facility] (DEFAULT) [address] [place] [address] GFR/1.73 sq M.predicted among non-blacks MDRD (S/P/Bld) [Vol rate/Area] 72 mL/min/{1.73_m2} Normal >=60 [facility] Comment on above: Result Comment: Repo rted eGFR is based on the CKD-EPI 2020 equation using creatinine, age, and sex. Performed By: #### X M #### [facility] (DEFAULT) [address] [place] [address]46 Glucose [Mass/Vol] 114 mg/dL High 70-99 [facility] Comment on above: Performed By: #### X M #### [facility] (DEFAULT) [address] [place] [address]91 Osmolality [Osmolality] 291 mosm/kg Normal 278-305 [facility] Comment on above: Performed By: #### X M #### [facility] (DEFAULT) [address] [place] [address] Potassium [Moles/Vol] 3.8 mmol/L Normal 3.5-5.0 [facility] Comment on above: Performed By: #### X M #### [facility] (DEFAULT) [address] [place] [address]18 Sodium [Moles/Vol] 138 mmol/L Normal 135-145 [facility] Comment on above: Performed By: #### X M #### [facility] (DEFAULT) [address] [address] Urea nitrogen [Mass/Vol] 16 mg/dL Normal 7-25 [facility] Comment on above: Performed By: #### X M #### [facility] (DEFAULT) [address] [place] [address]663 Urea nitrogen/Creatinine [Mass ratio] 14 mg/mg Normal [facility] Comment on above: Performed By: #### X M #### [facility] (DEFAULT) [address] [address] FERRITINon 04-09-2024 Ferritin [Mass/Vol] 36.2 ng/mL 10.5 - 3 07.3 ng/mL [facility] Interpretation and review of laboratory results Normal [facility] Ferritin [Mass/Vol] 36.2 ng/mL Normal 10.5-307.3 [facility] Comment on above: Performed By: #### B ADDRESSING MACHINE OPERATOR #### [facility] (DEFAULT) [address] [place] [address] HEMOGLOBIN A1Con 04-09-2024 Average glucose Estimated from glycated hemoglobin (Bld) [Mass/Vol] 117 mg/dL [facility] HbA1c (Bld) [Mass fraction] 5.7 % High 4.7 - 5.6 % [facility] Interpretation and review of laboratory results Abnormal [facility] Glucose [Mass/Vol] 117 mg/dL Normal [facility] Comment on above: Performed By: #### B ADDRESSING MACHINE OPERATOR #### [facility] (DEFAULT) [address] [place] [address] Hemoglobin A1C HPLC 5.7 % High 4.7-5.6 [facility] Comment on above: Performed By: #### B ADDRESSING MACHINE OPERATOR #### [facility] (DEFAULT) [address] [place] [address] HEPATIC FUNCTION PANELon Albumin [Mass/Vol] 3.9 g/dL 3.5 - 5.0 g/dL [facility] ALP [Catalytic activity/Vol] 66 U/L 32 - 126 U/L [facility] ALT [Catalytic activity/Vol] 8 U/L Low 10 - 52 U/L [facility] AST [Catalytic activity/Vol] 20 U/L 10 - 39 U/L [facility] Bilirubin [Mass/Vol] 0.5 mg/dL NINF - 1.5 mg/dL [facility] Bilirubin.direct [Mass/Vol] 0.1 mg/dL NINF - 0.3 mg/dL [facility] Protein [Mass/Vol] 6.5 g/dL 6.4 - 8.3 g/dL [facility] Albumin [Mass/Vol] 3.9 g/dL Normal 3.5-5.0 [facility] Comment on above: Performed By: #### X M #### [facility] (DEFAULT) [address] [place] [address] 66100 ALP [Catalytic activity/Vol] 66 U/L Normal 32-126 [facility] Comment on above: Performed By: #### X M #### [facility] (DEFAULT) [address] [place] [address] 90393 ALT [Catalytic activity/Vol] 8 U/L Low 10-52 [facility] Comment on above: Performed By: #### X M #### [facility] (DEFAULT) [address] [place] [address] 31907 AST [Catalytic activity/Vol] 20 U/L Normal 10-39 [facility] Comment on above: Performed By: #### X M #### [facility] (DEFAULT) [address] [place] [address] 96424 Bilirubin [Mass/Vol] 0.5 mg/dL Normal <1.5 [facility] Comment on above: Performed By: #### X M #### [facility] (DEFAULT) [address] [place] [address] 12216 Bilirubin.indirect [Mass/Vol] 0.1 mg/dL Normal <0.3 [facility] Comment on above: Performed By: #### X M #### [facility] (DEFAULT) [address] [place] [address] 85173 Protein [Mass/Vol] 6.5 g/dL Normal 6.4-8.3 [facility] Comment on above: Performed By: #### X M #### [facility] (DEFAULT) [address] [place] [address] 71806 IRON/IRON BINDING/TRANSFERRI Non 04-09-2024 Iron [Mass/Vol] 87 ug/dL [facility] Iron binding capacity [Mass/Vol] 365 [facility] Iron saturation [Mass fraction] 24 % 20 - 55 % [facility] Transferrin [Mass/Vol] 292 mg/dL 200 - 400 mg/dL [facility] Iron [Mass/Vol] 87 ug/dL Normal 40-174 [facility] Comment on above: Performed By: #### X M #### [facility] (DEFAULT) [address] [place] [address] Iron Saturation 24 % Normal 20-55 [facility] Comment on above: Performed By: #### X M #### [facility] (DEFAULT) [address] [place] [address] Total Iron Binding Capacity 365 mcg/dL Normal 250-425 [facility] Comment on above: Performed By: #### X M #### [facility] (DEFAULT) [address] [place] [address] Transferrin [Mass/Vol] 292 mg/dL Normal 200-400 [facility] Comment on above: Performed By: #### X M #### [facility] (DEFAULT) [address] [place] [address] LIPID PANEL W CALCULATED LDL on 04-09-2024 Cholesterol [Mass/Vol] 187 mg/dL NINF - 200 mg/dL [facility] Comment on above: [<200 mg/dL: Desirab le] [200-239 mg/dL: Borderline High] [>239 mg/dL: High] Cholesterol in HDL [Mass/Vol] 36 mg/dL Low 40 - PINF mg/dL [facility] Comment on above: [<40 mg/dL: Low (Hig h Risk)] [>59 mg/dL: High (Low Risk)] Cholesterol in LDL [Mass/Vol] 92 mg/dL 0 - 99 mg/dL [facility] Comment on above: [<100 mg/dL: Optimal ] [100-129 mg/dL: Near Optimal] [130-159 mg/dL: Borderline High] [160-189 mg/dL: High] [>189 mg/dL: Very High] Cholesterol non HDL [Mass/Vol] 151 mg/dL High NINF - 130 mg/dL [facility] Cholesterol.total/Chol esterol in HDL [Mass ratio] 5.2 {ratio} High NINF - 4.5 [facility] Triglyceride [Mass/Vol] 294 mg/dL High NINF - 150 mg/dL [facility] Comment on above: [<150 mg/dL: Desirab le] [150-199 mg/dL: Borderline] [200-499 mg/dL: High] [>500 mg/dL: Very High] Calculated LDL Cholesterol 92 mg/dL Normal 0-99 [facility] Comment on above: Order Comment: IF NO T DONE IN THE E.D. SHOULD BE FASTING PRIOR TO DRAW. Result Comment: [<10 0 mg/dL: Optimal] [100-129 mg/dL: Near Optimal] [130-159 mg/dL: Borderline High] [160-189 mg/dL: High] [>189 mg/dL: Very High] Performed By: #### X M #### [facility] (DEFAULT) [address] [address] Cholesterol [Mass/Vol] 187 mg/dL Normal <200 [facility] Comment on above: Order Comment: IF NO T DONE IN THE E.D. SHOULD BE FASTING PRIOR TO DRAW. Result Comment: [<20 0 mg/dL: Desirable] [200-239 mg/dL: Borderline High] [>239 mg/dL: High] Performed By: #### X M #### [facility] (DEFAULT) [address] [address] Cholesterol in HDL [Mass/Vol] 36 mg/dL Low >=40 [facility] Comment on above: Order Comment: IF NO T DONE IN THE E.D. SHOULD BE FASTING PRIOR TO DRAW. Result Comment: [<40 mg/dL: Low (High Risk)] [>59 mg/dL: High (Low Risk)] Performed By: #### X M #### [facility] (DEFAULT) [address] [address] Non HDL Cholesterol 151 mg/dL High <130 [facility] Comment on above: Order Comment: IF NO T DONE IN THE E.D. SHOULD BE FASTING PRIOR TO DRAW. Performed By: #### X M #### [facility] (DEFAULT) [address] [place] [address] Total Cholesterol/HDL Ratio 5.2 High <4.5 [facility] Comment on above: Order Comment: IF NO T DONE IN THE E.D. SHOULD BE FASTING PRIOR TO DRAW. Performed By: #### X M #### [facility] (DEFAULT) [address] [place] [address]79 Triglyceride [Mass/Vol] 294 mg/dL High <150 [facility] Comment on above: Order Comment: IF NO T DONE IN THE E.D. SHOULD BE FASTING PRIOR TO DRAW. Result Comment: [<15 0 mg/dL: Desirable] [150-199 mg/dL: Borderline] [200-499 mg/dL: High] [>500 mg/dL: Very High] Performed By: #### X M #### [facility] (DEFAULT) [address] [place] [address] MAGNESIUMon 04-09-2024 Magnesium [Mass/Vol] 1.7 mg/dL 1.6 - 2 .6 mg/dL [facility] Magnesium [Mass/Vol] 1.7 mg/dL Normal 1.6-2.6 [facility] Comment on above: Performed By: #### L [id number] #### [facility] (DEFAULT) [address] [place] [address] Magnesium [Mass/Vol] 1.8 mg/dL 1.6 - 2 .6 mg/dL [facility] Magnesium [Mass/Vol] 1.8 mg/dL Normal 1.6-2.6 [facility] Comment on above: Performed By: #### X MPO #### [facility] (DEFAULT) [address] [place] [address]80 No Panel Informationon 04-09 Interpretation and review of laboratory results Normal [facility] Interpretation and review of laboratory results Normal [facility] Interpretation and review of laboratory results Normal [facility] Interpretation and review of laboratory results Abnormal [facility] Radiology Study observation (narrative) [facility] PHOSPHATE, INORGANICon 04-09 Phosphate [Mass/Vol] 2.8 mg/dL 2.2 - 4 .6 mg/dL [facility] Phosphorous 2.8 mg/dL Normal 2.2-4.6 [facility] Comment on above: Performed By: #### X MPO #### [facility] (DEFAULT) [address] [place] [address] 14027 POTASSIUMon 04-09-2024 Potassium [Moles/Vol] 3.9 mmol/L 3.5 - 5.0 mmol/L [facility] Potassium [Moles/Vol] 3.9 mmol/L Normal 3.5-5.0 [facility] Comment on above: Order Comment: Obtai n as dictated by patient serum electrolyte values and electrolyte replacement therapy. Performed By: #### P TPTT #### [facility] (DEFAULT) [address] [place] [address] 21552 PROTIME-INRon 04-09-2024 INR Coag (Bld) [Relative time] 2.2 {INR} High 0.9 - 1.1 [facility] Interpretation and review of laboratory results Abnormal [facility] PT Coag (PPP) [Time] 24.2 s High [facility] INR Coag (PPP) [Relative time] 2.2 {INR} High 0.9-1.1 [facility] Comment on above: Performed By: #### B ADDRESSING MACHINE OPERATOR #### [facility] (DEFAULT) [address] [place] [address] 26066 PT Coag (PPP) [Time] 24.2 s High 11.9-14.2 [facility] Comment on above: Performed By: #### B ADDRESSING MACHINE OPERATOR #### [facility] (DEFAULT) [address] [place] [address] Portable XR Chest Viewson IMPRESSION: Left-sided pacer was placed. No complication. OLOGY EXAM: XR CHEST 1 VIE W PORTABLE, 04/09/2024 15:38 PM COMPARISON: November 07, 2022 CLINICAL INDICATIONS: HFrEF RELEVANT CLINICAL HISTORY: If patient is unstable portable study is preferred.; FINDINGS: Left subclavian pacer, with wires coiled over the mid thorax. Lungs are clear. No pleural fluid. Implanted Devices: None Thorax: No acute findings. RADIOLOGY Adán Thomas MD - 04/09/2024 EXAM: XR CHEST 1 VIEW PORTABLE, 04/09/2024 15:38 PM COMPARISON: November 07, 2022 CLINICAL INDICATIONS: HFrEF RELEVANT CLINICAL HISTORY: If patient is unstable portable study is preferred.; FINDINGS: Left subclavian pacer, with wires coiled over the mid thorax. Lungs are clear. No pleural fluid. Implanted Devices: None Thorax: No acute findings. IMPRESSION IMPRESSION: Left-sided pacer was placed. No complication. [facility] TSHon 04-09-2024 Interpretation and review of laboratory results Normal [facility] TSH Qn 1.311 m[IU]/L [facility] TSH 1.311 uIU/mL Normal 0.550-4.780 [facility] Comment on above: Performed By: #### T , FT4 #### [facility] (DEFAULT) [address] [place] [address] XR CHEST 1 VIEW PORTABLEon 0 04-09-2024 XR CHEST 1 VIEW PORTABLE EXAM: XR CHEST 1 VIEW PORTABLE, 04/09/2024 15:38 PM COMPARISON: November 07, 2022 CLINICAL INDICATIONS: HFrEF RELEVANT CLINICAL HISTORY: If patient is unstable portable study is preferred.; FINDINGS: Left subclavian pacer, with wires coiled over the mid thorax. Lungs are clear. No pleural fluid. Implanted Devices: None Thorax: No acute findings. IMPRESSION: Left-sided pacer was placed. No complication. Normal [facility] Telephoneon 04-07-2024 Telephone [id number] Josh Venegas E 1965 M Date Provider Department Center 04/07/2024 1987-JAIRON MCCOY [facility] Family History Problem Relation Age of Onset COPD Father Other Father Family Status - Relation Status Age at Father Reason for Visit and Comments: shock on device for [place] [Other] Normal [facility] Office Visiton 03-13-2024 Follow-up visit [id number] Josh Venegas 1965 M Date Provider Department Center 03/13/2024 367-MOJGAN ZELAYA [facility] Family History Problem Relation Age of Onset COPD Father Other Father Family Status - Relation Status Age at Father Level of Service:89561 OR OFFICE/OUTPATIENT ESTABLISHED MOD MDM 30 MIN Reason for Visit and Comments: Follow-up [570215] - Follow up per Nish- vinod echo completed Normal [facility] Office Visiton 02-26-2024 Follow-up visit [id number] Josh Venegas 1965 M Date Provider Department Center 02/26/2024 166-MITALI ALEGRIA KIRSTEN Leblanc [facility] Family History Problem Relation Age of Onset COPD Father Other Father Family Status - Relation Status Age at Father Level of Service:78970 OR OFFICE/OUTPATIENT ESTABLISHED MOD MDM 30 MIN Reason for Visit and Comments: Follow-up [516742] - Patient is here today with increased sob and dizziness Was evaluated in the ER yesterday Normal [facility] ALP ALT Manuel 01-09-2024 ALP [Catalytic activity/Vol] 66 U/L Normal 32-126 [facility] Comment on above: Performed By: #### P TPTT #### [facility] (DEFAULT) [address] [place] [address]603 ALT [Catalytic activity/Vol] 10 U/L Normal 10-52 [facility] Comment on above: Performed By: #### P TPTT #### [facility] (DEFAULT) [address] [place] [address] AST [Catalytic activity/Vol] 21 U/L Normal 10-39 [facility] Comment on above: Performed By: #### P TPTT #### [facility] (DEFAULT) [address] [place] [address] 63698 T4 FREEon 01-09-2024 Free T4 [Mass/Vol] 1.43 ng/dL Normal 0.89-1.76 [facility] Comment on above: Performed By: #### T SH, FT4 #### [facility] (DEFAULT) [address] [place] [address] TSHon 01-09-2024 TSH 1.456 uIU/mL Normal 0.550-4.780 [facility] Comment on above: Performed By: #### T SH, FT4 #### [facility] (DEFAULT) [address] [place] [address] 96112 BNP, MANUAL ENTERon 11-06-20 B-Type Natriuretic Peptide (BNP), MANUAL ENTER 1159 [facility] Comment on above: NT-PRO BNP [facility] CHEM 7 PANEL, MANUAL ENTERon 11-06-2023 Blood Urea Nitrogen (BUN), MANUAL ENTER 17.0 [facility] BUN/CREA RATIO, MANUAL ENTER [facility] CALCIUM (CA), MANUAL ENTER [facility] Carbon Diox(CO2), MANUAL ENTER 31.1 [facility] Chloride (CL), MANUAL ENTER 104 mmol/L [facility] CREATININE, SERUM, MANUAL ENTER 1.10 mg/dL [facility] GLUCOSE, MANUAL ENTER [facility] MAGNESIUM (MG), MANUAL ENTER [facility] Phosphate (PO4), Manual Enter [facility] POTASSIUM (K+), MANUAL ENTER 3.9 [facility] SODIUM (NA), MANUAL ENTER 140 [facility] ESTIMATED GFR, NON A DAMIAN, MANUAL ENTERon 11-06-2023 ESTIMATED GFR, NON AMER, MANUAL ENTER [facility] Office Visiton 09-04-2023 Follow-up visit [id number] Ovi Venegasnikkie Bryant 1965 M Date Provider Department Center 09/04/2023 Katherin-KELLY ELLISON Deana [facility] Family History Problem Relation Age of Onset COPD Father Other Father Family Status - Relation Status Age at Father Level of Service:40378 OR OFFICE/OUTPATIENT ESTABLISHED MOD MDM 30-39 MIN Normal [facility] FUNCTIONAL VO2 TESTINGOrdere d By: Arpan Ya on 01-10-2023 % APHRMAX 77 % [facility] Work Phone: APHRMAX 163 bpm [facility] Work Phone: Baseline DBP 69 mmHg [facility] Work Phone: Baseline DBP 66 mmHg [facility] Work Phone: Baseline HR 76 bpm [facility] Work Phone: Baseline HR 75 bpm [facility] Work Phone: Body surface area Derived from formula 2.39 [facility]: Estimated workload 8.0 METS U [facility] Work Phone: Exercise duration (min) 6 min [facility] Work Phone: Exercise duration (sec) 42 sec [facility] Work Phone: lowest spo2 97 [facility] Work Phone: [facility] VO2 METS 8 [facility] Work Phone: Peak DBP 66 mmHg [facility] Work Phone: Peak HR 125 bpm [facility] Work Phone: Peak percent predicted 77 [facility] Work Phone: Peak SBP 130 mmHg [facility] Work Phone: peak SpO2 97 [facility] Work Phone: [phone] [facility] Work Phone: percent of peak vo2 87 [facility] Work Phone: Rate Pressure Product [phone] [facility] Work Phone: RER 1.24 [facility] Work Phone: RPE 19 [facility] Work Phone: RR MAX 28 [facility] Work Phone: ventilatory efficiency/vco2 30 [facility] Work Phone: vo2 at anaerobic threshold 18.3 [facility] Work Phone: FUNCTIONAL VO2 TESTINGon There [...] Ya on 01-10-2023 Baseline SBP 116 mmHg [facility] Work Phone: [facility] Work Phone: No Panel Informationon 01-10 Radiology Study observation (narrative) [facility] Vital signsOrdered By: Arpan Ya on 01-10-2023 Oxygen saturation in Blood 97 % [facility] Work Phone: PROF CHEM 8 (BAS METB)on Anion gap [Moles/Vol] 10.4 mmol/L Normal [facility] Comment on above: Performed By: #### B MP #### [facility] [address] [address] [address] Robbin Meek Calcium [Mass/Vol] 8.7 mg/dL Normal 8.5-10.1 [facility] Comment on above: Performed By: #### B MP #### [facility] [address] [address] [address] Robbin Meek Chloride [Moles/Vol] 101 mmol/L Normal 98-107 [facility] Comment on above: Performed By: #### B MP #### [facility] [address] [address] [address] Robbin Meek CO2 [Moles/Vol] 29.9 mmol/L Normal 21.0-32.0 [facility] Comment on above: Performed By: #### B MP #### [facility] [address] [address] [address] Robbin Meek Creatinine [Mass/Vol] 1.15 mg/dL Normal 0.70-1.30 [facility] Comment on above: Performed By: #### B MP #### [facility] [address] [address] [address] Robbin Meek EGFR-AF FINNISH >60 Normal >=60 [facility] Comment on above: Performed By: #### B MP #### [facility] [address] [address] [address] Robbin Meek EGFR-NON AF FINNISH >60 Normal >=60 [facility] Comment on above: Performed By: #### B MP #### [facility] [address] [address] [address] Robbin Meek Glucose [Mass/Vol] 101 mg/dL Normal 74-106 [facility] Comment on above: Performed By: #### B MP #### [facility] [id number] Robbin Meek Potassium [Moles/Vol] 4.3 mmol/L Normal 3.5-5.1 [facility] Comment on above: Performed By: #### B MP #### [facility] [address] [address] [address] Robbin Meek Sodium [Moles/Vol] 137 mmol/L Normal 136-145 [facility] Comment on above: Performed By: #### B MP #### [facility] [address] [address] [address] Robbin Meek Urea nitrogen [Mass/Vol] 17.0 mg/dL Normal 7.0-18.0 [facility] Comment on above: Performed By: #### B MP #### [facility] [address] [address] [address] Robbin Meek Urea nitrogen/Creatinine [Mass ratio] 14.8 mg/mg Normal [facility] Comment on above: Performed By: #### B MP #### [facility] [address] [address] [address] Robbin Meek DEVICE EVALUATION (SCANNED)o n 06-08-2022 [facility] No Panel Informationon 06-01 ANION GAP, MANUAL ENTER 11.3 [facility] Blood Urea Nitrogen (BUN), MANUAL ENTER 18 [facility] BUN/CREA RATIO, MANUAL ENTER 15.5 [facility] CALCIUM (CA), MANUAL ENTER 8.9 [facility] Carbon Diox(CO2), MANUAL ENTER 27.2 [facility] Chloride (CL), MANUAL ENTER 101 mmol/L [facility] CREATININE, SERUM, MANUAL ENTER 1.16 mg/dL [facility] ESTIMATED GFR, , MANUAL ENTER >60 [facility] ESTIMATED GFR, NON AMER, MANUAL ENTER >60 [facility] GLUCOSE, MANUAL ENTER 98 [facility] MAGNESIUM (MG), MANUAL ENTER [facility] Phosphate (PO4), Manual Enter [facility] POTASSIUM (K+), MANUAL ENTER 4.5 [facility] SODIUM (NA), MANUAL ENTER 135 [facility] PROF CHEM 8 (BAS METB)on Anion gap [Moles/Vol] 11.3 mmol/L Normal Th e [facility] Comment on above: Performed By: #### B MP #### [facility] [address] [address] [address] Robbin Meek Calcium [Mass/Vol] 8.9 mg/dL Normal 8.5-10.1 [facility] Comment on above: Performed By: #### B MP #### [facility] [address] [address] [address] Robbin Meek Chloride [Moles/Vol] 101 mmol/L Normal 98-107 [facility] Comment on above: Performed By: #### B MP #### [facility] [address] [address] [address] Robbin Meek CO2 [Moles/Vol] 27.2 mmol/L Normal 21.0-32.0 [facility] Comment on above: Performed By: #### B MP #### [facility] [address] [address] [address] Robbin Meek Creatinine [Mass/Vol] 1.16 mg/dL Normal 0.70-1.30 [facility] Comment on above: Performed By: #### B MP #### [facility] [address] [address] [address] Robbin Meek EGFR-AF FINNISH >60 Normal >=60 [facility] Comment on above: Performed By: #### B MP #### [facility] [address] [address] [address] Robbin Meek EGFR-NON AF FINNISH >60 Normal >=60 [facility] Comment on above: Performed By: #### B MP #### [facility] [address] [address] [address] Robbin Meek Glucose [Mass/Vol] 98 mg/dL Normal 74-106 [facility] Comment on above: Performed By: #### B MP #### [facility] [address] [place], [place] [address] Dr. Robbin Meek Potassium [Moles/Vol] 4.5 mmol/L Normal 3.5-5.1 [facility] Comment on above: Performed By: #### B MP #### [facility] [address] [place], [place] [address] Dr. Robbin Meek Sodium [Moles/Vol] 135 mmol/L Critically low 136-145 [facility] Comment on above: Performed By: #### B MP #### [facility] [address] [place], [place] [address] Dr. Robbin Meek Urea nitrogen [Mass/Vol] 18.0 mg/dL Normal 7.0-18.0 [facility] Comment on above: Performed By: #### B MP #### [facility] [address] [place], [place] [address] Dr. Robbin Meek Urea nitrogen/Creatinine [Mass ratio] 15.5 mg/mg Normal [facility] Comment on above: Performed By: #### B MP #### [facility] [address] [place], [place] [address] Dr. Robbin Meek Coding Summary.on 11-23-2020 Coding Summary. 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 CODING DATE: 020 FINAL [facility] STATUS: Home (Routine DC) PAYOR: Medicare APC DESCRIPTION 5481 Laser Eye Procedures ADMIT DX: REASON FOR VISIT DX: H26.492 Other secondary cataract, left eye FINAL DX: PRINCIPAL: H26.492 Other secondary cataract, left eye SECONDARY: PYMT PROC APC STAT DESCRIPTION DOCTOR NAME DATE 5480 T Discission of secondary Matthias Dillon DO [...] Date Saved: 11/16/2020 01:26 pm [facility] Consent for Procedure/Surger yon 11-15-2020 Consent for Procedure/Surgery [id number]#1.00C D:127 [facility] Consent for Treatmenton 10-26 Consent for Treatment [id number]#1.00C D:127 [facility] Discharge Instructionson Discharge Instructions [id number]#1.00C D:127 [facility] History and Physicalon 11-15 History and Physical [id number]#1.00C D:127 [facility] IntraOperative Documentson 1 01-16-2020 IntraOperative Documents [id number]#1.00C D:127 [facility] IntraOperative Documents [id number]#1.00C D:127 [facility] Consent for Procedure/Surger yon 11-11-2020 Consent for Procedure/Surgery [id number]#1.00 CD:127 Normal [facility] Discharge Instructionson Discharge Instructions [id number]#1.00 CD:127 Normal [facility] History and Physicalon 11-11 History and Physical [id number]#1.00 CD:127 Normal [facility] IntraOperative Documentson 01-12-2020 IntraOperative Documents [id number]#1.00 CD:127 Normal [facility] IntraOperative Documents [id number]#1.00 CD:127 Normal [facility] Consent for Treatmenton 10-25 Consent for Treatment [id number]#1.00C D:127 Normal [facility] COVID-19([facility])on 07-21-2020 COVID-19([facility]) NOT DETECTED Normal NOT DETECTED [facility] Comment on above: Performed By: #### C OVID-19([facility]) #### [address] [place] [address] COVID-19([facility])on 07-18-2020 Age at specimen collection = Normal [facility] Comment on above: Performed By: #### C OVID-19([facility]) #### [address] [place] [address] PT/INRon 03-24-2020 INR Coag (PPP) [Relative time] 1.0 {INR} [facility] Interpretation and review of laboratory results Normal [facility] PT Coag (PPP) [Time] 13.1 s [facility] During the induction phase of oral anticoagulation, the INR may not reflect the anticoagulation status of the patient. Therapeutic ranges for INR's are: Most clinical situations: INR 2.0-3.0 Mechanical Prosthetic Valve: INR 2.5-3.5 Critical: INR >5.0 [facility] SCAN OTHER ORDERSon 03-24-20 Ordered by an unspecified provider. [facility] Otheron 02-18-2020 Ordered by an unspecified provider. [facility] XR HIP 2-3 VW W [...] Woodson Jr., MD 12/24/19 Final result Normal [facility] XR HIP 2-3 VW W PELVIS LEFTO rdered By: Ny Parham on 12-24-2019 Left hip prosthesis in anatomic alignment. Finding [employer] Phone: EXAM: XR HIP 2-3 VW W PELVIS LEFT HISTORY: M25.552 54-year-old male, left hip pain and burning 3-4 days. COMPARISON: Lumbar spine dictated separately same date. TECHNIQUE: AP pelvis and AP and frog-leg views left hip. FINDINGS: Bilateral total hip prostheses. The left hip prosthesis shows normal alignment and hardware. [employer] Phone: Barry, Mhpn Incoming Radiant Results From [employer] - 12/24/2019 10:06 AM EST EXAM: XR HIP 2-3 VW W PELVIS LEFT HISTORY: M25.552 54-year-old male, left hip pain and burning 3-4 days. COMPARISON: Lumbar spine dictated separately same date. TECHNIQUE: AP pelvis and AP and frog-leg views left hip. FINDINGS: Bilateral total hip prostheses. The left hip prosthesis shows normal alignment and hardware. IMPRESSION: Left hip prosthesis in anatomic alignment. [employer] Phone: XR LUMBAR SPINE (MIN 4 VIEWS [...] Woodson Jr., MD 12/24/19 Final result Normal [facility] XR LUMBAR SPINE (MIN 4 VIEWS )Ordered By: Ny Parham on 12-24-2019 Multilevel moderate degenerative change. Finding [employer] Phone: EXAM: XR LUMBAR SPIN E (MIN 4 VIEWS) HISTORY: M25.552, 54-year-old male left hip pain, burning. COMPARISON: Pelvis and left hip dictated separately same date. TECHNIQUE: 5 views lumbar spine. FINDINGS: Moderate diffuse disc degenerative change. Partial inclusion of bilateral hip prostheses. Anastomotic suture ring and surgical clips near the ascending colon. [employer] Phone: Barry, Mhpn Incoming Radiant Results From [employer] - 12/24/2019 10:06 AM EST EXAM: XR LUMBAR SPINE (MIN 4 VIEWS) HISTORY: M25.552, 54-year-old male left hip pain, burning. COMPARISON: Pelvis and left hip dictated separately same date. TECHNIQUE: 5 views lumbar spine. FINDINGS: Moderate diffuse disc degenerative change. Partial inclusion of bilateral hip prostheses. Anastomotic suture ring and surgical clips near the ascending colon. IMPRESSION: Multilevel moderate degenerative change. Finding Something 3 Phone: Basic Metabolic Panlon 12-09 Anion gap [Moles/Vol] 14 mmol/L Normal 9-18 [facility] Comment on above: Performed By: #### B DARELL PANDYA, LD6 #### [facility] [address] [place], [place] [address] Calcium [Mass/Vol] 8.9 mg/dL Normal 8.5-10.2 [facility] Comment on above: Performed By: #### B DARELL PANDYA, LD6 #### [facility] [address] [address] Chloride [Moles/Vol] 99 mmol/L Normal 97-105 [facility] Comment on above: Performed By: #### B YA, HFP, LD6 #### [facility] [address] [address] CO2 [Moles/Vol] 25 mmol/L Normal 22-30 [facility] Comment on above: Performed By: #### B YA, HFP, LD6 #### [facility] [address] [phone] Creatinine [Mass/Vol] 1.08 mg/dL Normal 0.73-1.22 [facility] Comment on above: Performed By: #### B YA, HFP, LD6 #### [facility] [address] [phone] eGFR- Amer. >60 Normal [facility] Comment on above: Performed By: #### B YA, DARELL, LD6 #### [facility] [address] [phone] GFR/1.73 sq M predicted among non-blacks MDRD (S/P/Bld) [Vol rate/Area] mL/min/{1.73_m2} Normal [facility] Comment on above: Result Comment: eGFR (Estimated [...] reflect actual GFR. Performed By: #### B YA, HFP, LD6 #### [facility] [address] [address] Glucose [Mass/Vol] 98 mg/dL Normal 74-99 [facility] Comment on above: Result Comment: The [place] Diabetes Association (ADA) provides guidance for cutoff [...] Standards of Medical Care in Diabetes 2016, [place] [employer] Association. Diabetes Care. 2016.39(Suppl 1). Performed By: #### B YA, DARELL, LD6 #### [facility] [address] [address] Potassium [Moles/Vol] 4.5 mmol/L Normal 3.7-5.1 [facility] Comment on above: Performed By: #### B YA, HFP, LD6 #### [facility] [address] [address] Sodium [Moles/Vol] 138 mmol/L Normal 136-144 [facility] Comment on above: Performed By: #### B YA, HFP, LD6 #### [facility] [address] [address] Urea nitrogen [Mass/Vol] 17 mg/dL Normal 9-24 [facility] Comment on above: Performed By: #### B MP, HFP, LD6 #### [facility] [address] [address] CNOVSPon 12-09-2019 CNOVSP Visit (SP) Office (HEMACL) TANIA VENEGAS ([id number]) 1965 M Date Time Provider Department 12/09/19 [...] CBC + DIFF (FOR REMOTE [facility] USE) - HEPATIC FUNCTION PNL - LD [...] daily. 2 caps three times a day oxyCODONE-acetaminophen (PERCOCET) 5-325 mg tablet traMADol (ULTRAM) 50 [...] questions satisfactorily.. Derek Pereyra D.O. Medical Oncologist [place], [place] [facility]. Referring Provider: SELF [200] Allergies As of Date: 12/09/2019 (No Known Allergies) Date Reviewed: 12/09/2019 Reviewed by: Amber Villatoro - Fully Assessed Reason for Visit: Lymphoma [564] Cmt: 1 year follow up Primary Visit Diagnosis:Diffuse large B-cell lymphoma, unspecified body region (HCC) [C83.30] Order(s):BASIC METABOLIC PNL [SQBMP] Order #: [id number] STANDING CBC + DIFF (FOR REMOTE [facility] USE) [SQRCBCDF] Order #: [id number] STANDING HEPATIC FUNCTION PNL [SQHFP] Order #: [id number] STANDING LD LACTATE DEHYDRO [SQLD6] Order #: [id number] STANDING Prescriptions as of 12/09/2019 Sig: AMIODARONE [...] Take 200 mg by mouth three ti* OXYCODONE-ACETAMINOPHEN 5 MG-* TRAMADOL 50 MG TABLET Problem List As Of Date 12/09/2019 Noted Resolved Lymphoma [C85.90] 10/20/2012 PTTD (posterior tibial tendon dysfunction) [M76*06/21/2014 Achilles tendon contracture, 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.02] 06/21/2014 Valgus deformity of foot [M21.079] 06/21/2014 Encounter Status:Closed by ARON PEREYRA DO on 12/12/19 Normal [facility] Hepatic Functn Panelon 12-09 Albumin [Mass/Vol] 4.1 g/dL Normal 3.9-4.9 [facility] Comment on above: Performed By: #### B DARELL PANDYA, LD6 #### [facility] [address] [place], [place] [address] ALP [Catalytic activity/Vol] 84 U/L Normal 38-113 [facility] Comment on above: Performed By: #### B DARELL PANDYA, LD6 #### [facility] [address] [address] ALT [Catalytic activity/Vol] 8 U/L Low 10-54 [facility] Comment on above: Performed By: #### B MP, HFP, LD6 #### [facility] [address] [address] AST [Catalytic activity/Vol] 24 U/L Normal 14-40 [facility] Comment on above: Performed By: #### B MP, HFP, LD6 #### [address] [address] Bilirubin [Mass/Vol] 0.2 mg/dL Normal 0.2-1.3 [facility] Comment on above: Performed By: #### B MP, HFP, LD6 #### [address] [address] Bilirubin,Conjugated <0.2 Normal <0.2 [facility] Comment on above: Performed By: #### B MP, HFP, LD6 #### [address] [place] [address] Protein [Mass/Vol] 6.8 g/dL Normal 6.3-8.0 [facility] Comment on above: Performed By: #### B MP, HFP, LD6 #### [facility] [address] [address] LDon 12-09-2019 LD 254 U/L High 135-225 [facility] Comment on above: Result Comment: Resu lts may be falsely increased due to interference by hemolysis. Suggest reorder as clinically indicated. Performed By: #### B MP, HFP, LD6 #### [facility] [address] [address] PROGRESSon 12-09-2019 PROGRESS HNO ID: [id number] Author: Aron Pererya Service: ? Author Type: Physician Type: Progress [...] CBC + DIFF (FOR REMOTE [facility] USE) - HEPATIC FUNCTION PNL - LD [...] call if he develops any concerning symptoms. ------ HISTORY OF PRESENT ILLNESS: This is a [...] daily. 2 caps three times a day oxyCODONE-acetaminophen (PERCOCET) 5-325 mg tablet traMADol (ULTRAM) 50 [...] questions satisfactorily.. Derek Pereyra D.O. Medical Oncologist [facility]. Normal [facility] Remote CBCDIF (for [facility] use o nly)on 12-09-2019 Abs Baso <0.03 Normal 0.00-0.10 [facility] Abs Merrick 0.65 k/uL Normal 0.00-0.86 [facility] Abs Neut 3.48 k/uL Normal 1.45-7.50 [facility] Basophils/100 WBC (Bld) 0.3 % Normal [facility] Eosinophils (Bld) [#/Vol] 0.12 10*3/uL Normal 0.00-0.45 [facility] Eosinophils/100 WBC (Bld) 2.0 % Normal [facility] Erythrocyte distribution width (RBC) [Ratio] 15.7 % High 11.5-15.0 [facility] Hematocrit (Bld) [Volume fraction] 38.4 % Low 39.0-51.0 [facility] Hemoglobin (Bld) [Mass/Vol] 12.4 g/dL Low 13.0-17.0 [facility] Lymphocytes (Bld) [#/Vol] 1.59 10*3/uL Normal 1.00-4.00 [facility] Lymphocytes/100 WBC (Bld) 27.1 % Normal [facility] MCH (RBC) [Entitic mass] 27.7 pG Normal 26.0-34.0 [facility] MCHC (RBC) [Mass/Vol] 32.3 g/dL Normal 30.5-36.0 [facility] MCV (RBC) [Entitic vol] 85.7 fL Normal 80.0-100.0 [facility] Monocytes/100 WBC (Bld) 11.1 % Normal [facility] Neutrophils/100 WBC (Bld) 59.5 % Normal [facility] Platelet mean volume (Bld) [Entitic vol] 9.3 fL Normal 9.0-12.7 [facility] Platelets (Bld) [#/Vol] 196 10*3/uL Normal 150-400 [facility] RBC (Bld) [#/Vol] 4.48 10*6/uL Normal 4.20-6.00 [facility] WBC (Bld) [#/Vol] 5.86 10*3/uL Normal 3.70-11.00 [facility] Cardiovascular Lab Reporton 09-04-2019 Cardiovascular Lab Report [facility] Patient Name: [facility] MR #: [id number] Physician: Mojgan [facility] Service Date: 09/03/2019 Division of Birthdate: 1965 Cardiology Room #: Adult Cardiovascular Services [address] [address] Cardiovascular Laboratory Report INDICATION: The patient is a 54-year-old man with a prior history of coronary artery disease by cardiac catheterization in 2016. 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 He has history of atrial fibrillation [...] signed informed consent. He was brought to director of labor and delivery in a fasting state. The right groin area was prepped and draped in usual fashion. Using micropuncture technique, the right common femoral artery was accessed. The inner cannula was advanced. Limited right femoral angiography was performed followed by upsizing to a 6-Barbadian x 11 cm sheath. Access was obtained using the same technique in the right common femoral vein and a 6-Barbadian x 11 cm sheath was placed. A 6-Barbadian Medina catheter was used for right heart catheterization with measurement of pressures and calculation of cardiac output using the estimated Tarun method. Medina catheter was removed. Bilateral selective coronary angiography was then performed using 6-Barbadian JL4 and JR4 diagnostic catheters. Catheters were [...] up in Cardiology Clinic. Electronically Signed by: Mojgan Zelaya M.D. 09/13/2019 06:20 P Mojgan Zelaya M.D. Date Dict: 09/03/2019/10:54 A/Mojgan Zelaya M.D. Date Trans: 09/04/2019 02:33 A/richy [id number] cc: Oliver Springer D.O. [address] [place], [place] [address]Rocael [facility] [address] Normal [facility] CTA HEART-CORONARY/ ARTERY B YPASS GRAFT WITH 3DPPon 08-13-2019 CTA HEART-CORONARY/ ARTERY BYPASS GRAFT WITH 3DPP [facility] Department of Radiology [address] [place] [phone] ===== Patient Name: TANIA VENEGAS : 1965 Sex: M Age: Race: White Pt. Location: 30 Patient Status: O Ordered Date: 08/04/2019 10:20:00 AM Completed Date: 08/13/2019 02:29 PM Requesting Provider: TRENT REYNOLDS Attending Provider: TRENT REYNOLDS Report Copy To: ADRIELTANGELAOLIVER Signs & Symptoms: I50.30 Unspecified diastolic (congestive) heart failure I10 History: [place] Cardiac SS in [facility]IS npc cta/ medicare *er Comments: Exam: CTA HEART-CORONARY/ ARTERY BYPASS GRAFT WITH 3DPP ===== CTA HEART-CORONARY/ ARTERY BYPASS GRAFT WITH 3DPP [...] procedure Electronically signed by:Rose Cabrera. Transcribed by: [email or web address], User Resident: Electronically Signed by: ROSE CABRERA @ 08/13/2019 09:06 PM Normal [facility] Vital Signs Date Time Vital Sign Value Performing Clinician Facility 09-30-2024 14:15-0500 Diastolic blood pressure 70 mm[Hg] Alexander Cox MD Work Phone: [facility] 09-30-2024 14:15-0500 Heart rate 60 /min Alexander Cox MD Work Phone: [facility] 09-30-2024 14:15-0500 Respiratory rate 21 /min Alexander Cox MD Work Phone: [facility] 09-30-2024 14:15-0500 SaO2% (BldA) [Mass fraction] 95 % Alexander Cox MD Work Phone: [facility] 09-30-2024 14:15-0500 Systolic blood pressure 102 mm[Hg] Alexander Cox MD Work Phone: [facility] 09-30-2024 11:18-0500 Body height 185.4 cm Alexander Cox MD Work Phone: [facility] 09-30-2024 11:18-0500 Body mass index (BMI) [Ratio] 33.64 kg/m2 Alexander Cox MD Work Phone: [facility] 09-30-2024 11:18-0500 Body temperature 97.59 [degF] Alexander Cox MD Work Phone: [facility] 09-30-2024 11:18-0500 Body weight 115.67 kg Alexander Cox MD Work Phone: [facility] 09-26-2024 08:52-0400 Body mass index (BMI) [Ratio] 33.52 kg/m2 Tania Zhang MD Work Phone: [facility] 09-26-2024 08:52-0400 Body weight 115.21 kg Tania Zhang MD Work Phone: [facility] 09-26-2024 07:37-0400 Body temperature 98.29 [degF] Tania Zhang MD Work Phone: [facility] 09-26-2024 07:37-0400 Diastolic blood pressure 73 mm[Hg] Tania Zhang MD Work Phone: [facility] 09-26-2024 07:37-0400 Heart rate 60 /min Tania Zhang MD Work Phone: [facility] 09-26-2024 07:37-0400 Respiratory rate 16 /min Tania Zhang MD Work Phone: [facility] 09-26-2024 07:37-0400 SaO2% (BldA) [Mass fraction] 96 % Tania Zhang MD Work Phone: [facility] 09-26-2024 07:37-0400 Systolic blood pressure 113 mm[Hg] Tania Zhang MD Work Phone: [facility] 09-23-2024 07:50-0400 Body height 185.4 cm Tania Zhang MD Work Phone: [facility] 07-21-2024 14:13-0400 Body height 185.4 cm Pete Marmolejo HORSE TRAINER-FUNERAL HOME ASSOCIATE Work Phone: [facility] 07-21-2024 14:13-0400 Body mass index (BMI) [Ratio] 33.91 kg/m2 Pete Marmolejo HORSE TRAINER-FUNERAL HOME ASSOCIATE Work Phone: [facility] 07-21-2024 14:13-0400 Body weight 116.57 kg Pete Marmolejo HORSE TRAINER-FUNERAL HOME ASSOCIATE Work Phone: [facility] 07-21-2024 14:13-0400 Diastolic blood pressure 70 mm[Hg] Pete Marmolejo HORSE TRAINER-FUNERAL HOME ASSOCIATE Work Phone: [facility] 08-27-2024 14:13-0400 Heart rate 91 /min Pete Marmolejo HORSE TRAINER-FUNERAL HOME ASSOCIATE Work Phone: [facility] 07-21-2024 14:13-0400 SaO2% (BldA) [Mass fraction] 95 % Pete Marmolejo HORSE TRAINER-FUNERAL HOME ASSOCIATE Work Phone: [facility] 07-21-2024 14:13-0400 Systolic blood pressure 110 mm[Hg] Pete Marmolejo HORSE TRAINER-FUNERAL HOME ASSOCIATE Work Phone: [facility] 06-12-2024 10:31-0400 Diastolic blood pressure 84 mm[Hg] Roland Geetha MBBS Work Phone: 7(408)030-882373 [address] 06-12-2024 10:31-0400 Heart rate 84 /min Roland Geetha MBBS Work Phone: 3(475)716-360173 [address] 06-12-2024 10:31-0400 Respiratory rate 16 /min Roland Geetha MBBS Work Phone: 2(028)477-605573 [address] 06-12-2024 10:31-0400 SaO2% (BldA) [Mass fraction] 99 % Roland Geetha MBBS Work Phone: 9(317)060-893873 [address] 06-12-2024 10:31-0400 Systolic blood pressure 135 mm[Hg] Roland Geetha MBBS Work Phone: 9(863)319-394010 [place] [address] 06-12-2024 08:27-0400 Body height 185.4 cm Roland Geetha MBBS Work Phone: 2(164)397-978973 [address] 06-12-2024 08:27-0400 Body mass index (BMI) [Ratio] 35.36 kg/m2 Roland Geetha MBBS Work Phone: 2(650)249-798673 [address] 06-12-2024 08:27-0400 Body temperature 97.9 [degF] Roland Geetha MBBS Work Phone: [facility] 06-12-2024 08:27-0400 Body weight 121.56 kg Roland Geethakali AREVALO Work Phone: [facility] 06-04-2024 08:47-0400 Body height 185.4 cm Kelly Tao HORSE TRAINER-FUNERAL HOME ASSOCIATE Work Phone: [facility] 06-04-2024 08:47-0400 Body mass index (BMI) [Ratio] 35.48 kg/m2 Kelly Tao HORSE TRAINER-FUNERAL HOME ASSOCIATE Work Phone: [facility] 06-04-2024 08:47-0400 Body temperature 97 [degF] Kelly Tao HORSE TRAINER-FUNERAL HOME ASSOCIATE Work Phone: [facility] 06-04-2024 08:47-0400 Body weight 121.97 kg Kelly Tao HORSE TRAINER-FUNERAL HOME ASSOCIATE Work Phone: [facility] 06-04-2024 08:47-0400 Diastolic blood pressure 89 mm[Hg] Kelly Tao HORSE TRAINER-FUNERAL HOME ASSOCIATE Work Phone: [facility] 06-04-2024 08:47-0400 Heart rate 71 /min Kelly Tao HORSE TRAINER-FUNERAL HOME ASSOCIATE Work Phone: [facility] 06-04-2024 08:47-0400 Respiratory rate 18 /min Kelly Tao HORSE TRAINER-FUNERAL HOME ASSOCIATE Work Phone: [facility] 06-04-2024 08:47-0400 SaO2% (BldA) [Mass fraction] 95 % Kelly Tao HORSE TRAINER-FUNERAL HOME ASSOCIATE Work Phone: [facility] 06-04-2024 08:47-0400 Systolic blood pressure 128 mm[Hg] Kelly Tao HORSE TRAINER-FUNERAL HOME ASSOCIATE Work Phone: [facility] 05-26-2024 08:38-0400 Body temperature 97.7 [degF] Prince D'Grant MD Work Phone: [facility] 05-26-2024 08:38-0400 Diastolic blood pressure 56 mm[Hg] Prince Falk MD Work Phone: [facility] 05-26-2024 08:38-0400 Heart rate 69 /min Prince Falk MD Work Phone: [facility] 05-26-2024 08:38-0400 Respiratory rate 22 /min Prince Falk MD Work Phone: [facility] 05-26-2024 08:38-0400 SaO2% (BldA) [Mass fraction] 93 % Prince Falk MD Work Phone: [facility] 05-26-2024 08:38-0400 Systolic blood pressure 100 mm[Hg] Prince Falk MD Work Phone: [facility] 05-26-2024 00:00-0400 Body mass index (BMI) [Ratio] 35.81 kg/m2 Prince Falk MD Work Phone: [facility] 05-26-2024 00:00-0400 Body weight 123.11 kg Prince Falk MD Work Phone: [facility] Comment on above: standing weight 05-25-2024 06:00-0400 Body height 185.4 cm Prince Falk MD Work Phone: [facility] 05-14-2024 10:22-0400 Diastolic blood pressure 89 mm[Hg] Mai WATERS Work Phone: [facility] 05-14-2024 10:22-0400 Heart rate 61 /min Mai WATERS Work Phone: [facility] 05-14-2024 10:22-0400 Systolic blood pressure 155 mm[Hg] Mai WATERS Work Phone: [facility] 05-14-2024 [id number] Body height 185.4 cm Mai WATERS Work Phone: [facility] 05-14-2024 10:21-0400 Body mass index (BMI) [Ratio] 35.07 kg/m2 Mai WATERS Work Phone: [facility] 05-14-2024 [id number] Body weight 120.57 kg Mai WATERS Work Phone: [facility] 05-14-2024 [id number] Respiratory rate 16 /min Mai WATERS Work Phone: [facility] 05-14-2024 [id number] SaO2% (BldA) [Mass fraction] 95 % Mai WATERS Work Phone: [facility] 05-14-2024 08:53-0400 Body height 185.4 cm Prince Falk MD Work Phone: [facility] 05-14-2024 08:53-0400 Body mass index (BMI) [Ratio] 35.41 kg/m2 Prince Falk MD Work Phone: [facility] 05-14-2024 08:53-0400 Body temperature 97.39 [degF] Prince Falk MD Work Phone: [facility] 05-14-2024 08:53-0400 Body weight 121.75 kg Prince Falk MD Work Phone: [facility] 05-14-2024 08:53-0400 Diastolic blood pressure 83 mm[Hg] Prince Falk MD Work Phone: [facility] 05-14-2024 08:53-0400 Heart rate 75 /min Prince Falk MD Work Phone: [facility] 05-14-2024 08:53-0400 Respiratory rate 16 /min Prince Falk MD Work Phone: [facility] 05-14-2024 08:53-0400 SaO2% (BldA) [Mass fraction] 97 % Prince Falk MD Work Phone: [facility] 05-14-2024 08:53-0400 Systolic blood pressure 154 mm[Hg] Prince Falk MD Work Phone: [facility] 04-13-2024 11:11-0400 Body temperature 98.8 [degF] Emmy Moura MD Work Phone: 7(459)825-914056 [address] 04-13-2024 11:11-0400 Diastolic blood pressure 66 mm[Hg] Emmy Moura MD Work Phone: 8(777)956-552156 [address] 04-13-2024 11:11-0400 Heart rate 90 /min Emmy Moura MD Work Phone: [facility] 04-13-2024 11:11-0400 Respiratory rate 18 /min Emmy Moura MD Work Phone: [facility] 04-13-2024 11:11-0400 SaO2% (BldA) [Mass fraction] 92 % Emmy Moura MD Work Phone: [facility] 04-13-2024 11:11-0400 Systolic blood pressure 101 mm[Hg] Emmy Moura MD Work Phone: [facility] 04-13-2024 03:24-0400 Body mass index (BMI) [Ratio] 34.1 kg/m2 Emmy Moura MD Work Phone: [facility] 04-13-2024 03:24-0400 Body weight 117.25 kg Emmy Moura MD Work Phone: 8(862)323-755674 [place] [address] Comment on above: standing 04-09-2024 15:43-0400 Body height 185.4 cm Emmy Moura MD Work Phone: 0(866)081-194574 [place] [address] 04-09-2024 11:40-0400 Body height 182.9 cm Ajit Hurtado MD Work Phone: 9(904)239-701774 [place] [address] 04-09-2024 11:40-0400 Body mass index (BMI) [Ratio] 36.08 kg/m2 Ajit Hurtado MD Work Phone: 5(305)493-619474 [place] [address] 04-09-2024 11:40-0400 Body temperature 98.1 [degF] Ajit Hurtado MD Work Phone: 1(436)417-679274 [place] [address] 04-09-2024 11:40-0400 Body weight 120.66 kg Ajit Hurtado MD Work Phone: 5(581)280-949774 [place] [address] 04-09-2024 11:40-0400 Diastolic blood pressure 82 mm[Hg] Ajit Hurtado MD Work Phone: 6(052)721-887374 [place] [address] 04-09-2024 11:40-0400 Heart rate 77 /min Ajit Hurtado MD Work Phone: 4(787)848-757874 [place] [address] 04-09-2024 11:40-0400 Respiratory rate 18 /min Ajit Hurtado MD Work Phone: 1(754)653-462974 [place] [address] 04-09-2024 11:40-0400 SaO2% (BldA) [Mass fraction] 96 % Ajit Hurtado MD Work Phone: 8(221)395-826974 [place] [address] 04-09-2024 11:40-0400 Systolic blood pressure 132 mm[Hg] Ajit Hurtado MD Work Phone: [facility] 09-26-2023 10:35-0400 Diastolic blood pressure 65 mm[Hg] Ajit Hurtado MD Work Phone: [facility] 09-26-2023 10:35-0400 Heart rate 89 /min Ajit Hurtado MD Work Phone: [facility] 09-26-2023 10:35-0400 Systolic blood pressure 101 mm[Hg] Ajit Hurtado MD Work Phone: [facility] 09-26-2023 10:34-0400 Body height 185.4 cm Ajit Hurtado MD Work Phone: [facility] 09-26-2023 10:34-0400 Body mass index (BMI) [Ratio] 34.55 kg/m2 Ajit Hurtado MD Work Phone: 6(818)280-396856 [address] 09-26-2023 10:34-0400 Body weight 118.8 kg Ajit Hurtado MD Work Phone: [facility] 09-26-2023 10:34-0400 Respiratory rate 16 /min Ajit Hurtado MD Work Phone: [facility] 09-26-2023 10:34-0400 SaO2% (BldA) [Mass fraction] 97 % Ajit Hurtado MD Work Phone: [facility] 01-31-2023 08:48-0500 Diastolic blood pressure 68 mm[Hg] Ajit Hurtado MD Work Phone: [facility] 01-31-2023 08:48-0500 Heart rate 72 /min Ajit Hurtado MD Work Phone: [facility] 01-31-2023 08:48-0500 Systolic blood pressure 109 mm[Hg] Ajit Hurtado MD Work Phone: [facility] 01-31-2023 08:47-0500 Body height 185.4 cm Ajit Hurtado MD Work Phone: [facility] 01-31-2023 08:47-0500 Body mass index (BMI) [Ratio] 34.17 kg/m2 Ajit Hurtado MD Work Phone: 5(873)597-110256 [address] 01-31-2023 08:47-0500 Body weight 117.48 kg Ajit Hurtado MD Work Phone: 8(169)422-186656 [address] 01-31-2023 08:47-0500 Respiratory rate 18 /min Ajit Hurtado MD Work Phone: [facility] 01-31-2023 08:47-0500 SaO2% (BldA) [Mass fraction] 97 % Ajit Hurtado MD Work Phone: 2(035)609-061074 [place] [address] 01-10-2023 09:33-0500 Body height 185.4 cm Ajit Hurtado MD Work Phone: 5(119)210-211674 [place] [address] 01-10-2023 09:33-0500 Body mass index (BMI) [Ratio] 33.64 kg/m2 Ajit Hurtado MD Work Phone: 7(101)607-521356 [address] 01-10-2023 09:33-0500 Body weight 115.67 kg Ajit Hurtado MD Work Phone: 6(112)290-612256 [address] 08-30-2022 09:25-0400 Diastolic blood pressure 87 mm[Hg] Ajit Hurtado MD Work Phone: 1(714)980-547756 [address] 08-30-2022 09:25-0400 Heart rate 66 /min Ajit Hurtado MD Work Phone: 3(524)763-961256 [address] 08-30-2022 09:25-0400 Systolic blood pressure 135 mm[Hg] Ajit Hurtado MD Work Phone: [facility] 08-30-2022 09:24-0400 Body height 182.9 cm Ajit Hurtado MD Work Phone: [facility] 08-30-2022 09:24-0400 Body mass index (BMI) [Ratio] 34.98 kg/m2 Ajit Hurtado MD Work Phone: [facility] 08-30-2022 09:24-0400 Body weight 116.98 kg Ajit Hurtado MD Work Phone: [facility] 08-30-2022 09:24-0400 Respiratory rate 18 /min Ajit Hurtado MD Work Phone: [facility] 08-30-2022 09:24-0400 SaO2% (BldA) [Mass fraction] 98 % Ajit Hurtado MD Work Phone: [facility] 03-24-2020 13:50-0400 BP Diastolic 88 mm[Hg] [facility] 03-24-2020 13:50-0400 BP Systolic 145 mm[Hg] [facility] 03-24-2020 13:50-0400 Pulse (Heart Rate) 64 /min [facility] 03-24-2020 13:50-0400 Pulse Oximetry 100 % [facility] 03-24-2020 13:50-0400 Respiratory Rate 19 /min [facility] 03-24-2020 12:10-0400 Body Temperature 97.7 [degF] [facility] 03-24-2020 06:55-0400 BMI (Body Mass Index) 34.55 kg/m2 [facility] 03-24-2020 06:55-0400 Body weight 118.[address] [facility] 03-24-2020 06:55-0400 Height 185.[address] [facility] Encounters Encounter Date Encounter Type Care Provider Facility Start: 10-09-2024 ambulatory NABOR GORDON Facili ty:[facility] Start: 10-01-2024 ambulatory STEVE Knight lity:[facility] Start: 09-30-2024 End: 09-30-2024 ambulatory ALEXANDER Lenard [facility] Facility:[facility] Start: 09-30-2024 End: 09-30-2024 Subsequent hospital visit by physician Alexander Cox MD Work Phone: [facility] Comment on above: Pacemaker at end of battery life Start: 09-22-2024 End: 09-26-2024 Evaluation and management of inpatient Tania Zhang MD Work Phone: Comment on above: NSVT (nonsustained v entricular tachycardia) Start: 09-08-2024 ambulatory VANGIE S AUGOSTINI Facil ity:[facility] Start: 09-08-2024 End: 09-08-2024 Subsequent hospital visit by physician [facility] Pac[facility] Remote Device Check Work Phone: [facility] Comment on above: Arrived Start: 08-10-2024 End: 08-11-2024 Telephone encounter Nathalie Bobo RN Account Services Representative [facility] Comment on above: Other Start: 08-09-2024 ambulatory ALEXANEDR Weinberg BROOKE Facility: [facility] Start: 08-09-2024 End: 08-09-2024 Subsequent hospital visit by physician [facility] Pac[facility] Remote Device Check Work Phone: [facility] Comment on above: Arrived Start: 08-04-2024 ambulatory VANGIE S AUGOSTINI Facil ity:[facility] Start: 08-04-2024 End: 08-04-2024 Subsequent hospital visit by physician [facility] Pac[facility] Remote Device Check Work Phone: [facility] Comment on above: Arrived Start: 07-21-2024 End: 07-21-2024 Patient encounter procedure Pete Marmolejo APRN-FUNERAL HOME ASSOCIATE Work Phone: [facility] Start: 07-21-2024 ambulatory PETE MARMOLEJO Facili ty:[facility] Start: 07-21-2024 End: 07-21-2024 Office outpatient visit 15 minutes Pete Marmolejo HORSE TRAINER-FUNERAL HOME ASSOCIATE Work Phone: [facility] Comment on above: Chronic systolic hea rt failure (Primary Dx) Start: 07-21-2024 ambulatory PETE MARMOLEJO Facili ty:[facility] Start: 07-09-2024 ambulatory AUTUMN GROSSMAN Facili ty:[facility] Start: 07-09-2024 ambulatory AUTUMN P CHAUNCEY Facili ty:[facility] Start: 06-30-2024 ambulatory VANGIE S AUGOSTINI Facil ity:[facility] Start: 06-30-2024 End: 06-30-2024 Subsequent hospital visit by physician [facility] Pac[facility] Remote Device Check Work Phone: [facility] Comment on above: Arrived Start: 06-19-2024 ambulatory VANGIE S AUGOSTINI Facil ity:[facility] Start: 06-19-2024 End: 06-19-2024 Subsequent hospital visit by physician [facility] Remote Device Check Work Phone: [facility] Comment on above: Arrived Start: 06-18-2024 End: 06-24-2024 ambulatory Delmy Frey RN Account Services Representative [facility] Comment on above: PVC's (premature nuris tricular contractions) (Primary Dx); Ventricular tachycardia Start: 06-12-2024 End: 06-12-2024 Subsequent hospital visit by physician Tessy AREVALO Work Phone: [facility] Comment on above: Atrial fibrillation, unspecified type Arrived Start: 06-12-2024 End: 06-12-2024 ambulatory TESSY CONN Facility:[facility] Start: 06-09-2024 ambulatory VANGIE S AUGOSTINI Facil ity:[facility] Start: 06-04-2024 End: 06-04-2024 Subsequent hospital visit by physician Jordana Cooley HORSE TRAINER-FUNERAL HOME ASSOCIATE Work Phone: [facility] Comment on above: Arrived Start: 06-04-2024 End: 06-04-2024 Postop follow up visit related to original px Prince Falk MD Work Phone: Division of Thoracic Surgery at [facility] Comment on above: Acute postoperative pain (Primary Dx); Ventricular tachycardia Start: 06-04-2024 ambulatory JORDANA Nikkie [facility] Facility :[facility] Start: 06-04-2024 ambulatory [facility] Facility :[facility] Start: 06-04-2024 End: 06-04-2024 Subsequent hospital visit by physician Jordana Cooley HORSE TRAINER-FUNERAL HOME ASSOCIATE Work Phone: [facility] Comment on above: Arrived Start: 05-28-2024 ambulatory VANGIE S AUGOSTINI Facil ity:[facility] Start: 05-28-2024 End: 05-28-2024 Subsequent hospital visit by physician [facility] Remote Device Check Work Phone: [facility] Comment on above: Arrived Start: 05-25-2024 End: 05-26-2024 Evaluation and management of inpatient Prince Falk MD Work Phone: [facility] Comment on above: Ventricular tachycar maggie Start: 05-21-2024 ambulatory [facility] Start: 05-20-2024 ambulatory [facility] Start: 05-19-2024 ambulatory PRINCE FALK Facil ity:[facility] Start: 05-14-2024 [facility] Start: 05-14-2024 End: 05-14-2024 Office outpatient visit 15 minutes Mai Izaguirre HORSE TRAINER-FUNERAL HOME ASSOCIATE Work Phone: [facility] Comment on above: Chronic systolic hea rt failure (Primary Dx) Start: 05-14-2024 End: 05-14-2024 Clinical Support Encounter Prince Falk MD Work Phone: Clinical Laboratories [facility] Comment on above: Ventricular tachycar maggie (Primary Dx) Start: 05-14-2024 ambulatory PRINCE FALK Facil ity:[facility] Start: 05-14-2024 End: 05-14-2024 Office outpatient new 60 minutes Prince Falk MD Work Phone: Division of Thoracic Surgery [facility] Comment on above: V-tach (Primary Dx); PVC (premature ventricular contraction); Chronic dyspnea; Breath shortness Start: 05-06-2024 Encounter for preprocedural cardiovascular examination [facility] Start: 05-06-2024 ambulatory [facility] Start: 04-09-2024 End: 04-13-2024 Evaluation and management of inpatient Emmy Moura MD Work Phone: [facility] Comment on above: Ventricular tachycar maggie Start: 04-09-[address] [facility] y:[facility] Start: 04-09-2024 End: 04-09-2024 Office outpatient visit 40 minutes Ajit Hurtado MD Work Phone: Account Services Representative [facility] Comment on above: NSVT (nonsustained v entricular tachycardia) (Primary Dx); Chronic systolic heart failure; Paroxysmal atrial fibrillation; PVC (premature ventricular contraction) Start: 04-09-2024 End: 04-09-2024 Subsequent hospital visit by physician Derrick Nunez MD Work Phone: [facility] Start: 04-09-2024 ambulatory AJIT HURTADO Facility :[facility] Start: 03-13-2024 End: 03-13-2024 ambulatory [facility] Start: 02-26-2024 End: 02-26-2024 ambulatory [facility] Start: 01-09-2024 End: 01-09-2024 Clinical Support Encounter Alexander Cox MD Work Phone: [facility] Comment on above: PVC's (premature nuris tricular contractions) (Primary Dx) Start: 01-09-2024 ambulatory ALEXANDER COX Facility: [facility] Start: 01-09-2024 ambulatory ALEXANDER COX Facility: [facility] Start: 12-27-2023 Telephone encounter Dax gomes Account Services Representative [facility] Comment on above: Outside Medical Bhanu rds Request Start: 11-06-2023 ambulatory Maria Elena campbell RN Account Services Representative [facility] Start: 09-26-2023 End: 09-26-2023 Office outpatient visit 25 minutes Ajit Hurtado MD Work Phone: Account Services Representative [facility] Comment on above: Chronic systolic hea rt failure (Primary Dx); PVC (premature ventricular contraction); Paroxysmal atrial fibrillation; Coronary artery disease involving [place] coronary artery of [place] heart without angina pectoris Start: 09-04-2023 End: 09-04-2023 [facility] Start: 06-05-2023 End: 06-05-2023 ambulatory AGUSTÍN YU [facility] Start: 03-25-2023 End: 04-24-2023 ambulatory NOWAK H FAWWAD Facility:[facility] Start: 02-25-2023 End: 03-22-2023 ambulatory NOWAK H FAWWAD Facility:[facility] Start: 01-31-2023 End: 01-31-2023 Office outpatient visit 25 minutes Ajit Hurtado MD Work Phone: Account Services Representative [facility] Comment on above: Chronic systolic hea rt failure (Primary Dx); PVC (premature ventricular contraction); Paroxysmal atrial fibrillation; Coronary artery disease involving [place] coronary artery of [place] heart without angina pectoris Start: 01-23-2023 End: 02-22-2023 ambulatory NOWAK H FAWWAD Facility:[facility] Start: 01-10-2023 End: 01-10-2023 Subsequent hospital visit by physician Ajit Hurtado MD Work Phone: [facility] Start: 01-10-2023 End: 01-10-2023 Subsequent hospital visit by physician Ajit Hurtado MD Work Phone: Cardiovascular Imaging Lab [facility] Comment on above: Arrived Start: 12-26-2022 End: [...] 25 minutes Ajit Hurtado MD Work Phone: Account Services Representative [facility] Comment on above: Chronic systolic hea rt failure (Primary Dx); Paroxysmal atrial fibrillation; PVC (premature ventricular contraction); Coronary artery disease involving [place] coronary artery of [place] heart without angina pectoris Start: 08-26-2022 End: 09-24-2022 ambulatory NOWAK H FAWWAD Facility:[facility] Start: 07-26-2022 End: 08-25-2022 ambulatory NOWAK H FAWWAD Facility:[facility] Start: 06-25-2022 End: 07-25-2022 ambulatory NOWAK H FAWWAD Facility:[facility] Start: 06-01-2022 End: 06-02-2022 ambulatory Delmy Frey RN Account Services Representative [facility] Start: 05-25-2022 End: 06-22-2022 ambulatory NOWAK H FAWWAD Facility:[facility] Start: 08-24-2021 End: 08-24-2021 Subsequent hospital visit by physician [facility] [place] Work Phone: [facility] Comment on above: Canceled (Cancel Shelli son Not Listed - Please provide detailed information) Start: 03-24-2020 End: 03-24-2020 Patient encounter procedure EVIE MARIN [facility] Start: 03-24-2020 End: 03-24-2020 Subsequent hospital visit by physician Evie Candelaria Work Phone: [facility] Comment on above: Ankle arthritis (Mil[place] mai Dx) Start: 03-23-2020 End: 03-23-2020 Patient encounter procedure EVIE CANDELARIA [facility] Start: 12-24-2019 End: 12-27-2019 Patient encounter procedure [place] DAIGLE [facility] Start: 12-24-2019 End: 12-26-2019 Subsequent hospital visit by physician [facility] 1 [facility] Comment on above: Left hip pain Start: 12-24-2019 End: 12-27-2019 Patient encounter procedure [place] DAG[facility] Start: 12-24-2019 End: 12-26-2019 Subsequent hospital visit by physician Oliver Springer DO Work Phone: [facility] Start: 09-03-2019 End: 09-04-2019 Patient encounter procedure PROVIDER UNKNOWN Facility:[facility] Procedures Date Procedure Procedure Detail Performing Clinician Start: 09-30-2024 Radiologic exam ches t 2 views Juan Luis Omalley MD Work Phone: Start: 09-30-2024 CBC AND ELECTRONIC DIFF Lea A Manuel HORSE TRAINER-FUNERAL HOME ASSOCIATE Work Phone: Start: 09-30-2024 Complete blood count with white cell differential, automated Lea A Manuel HORSE TRAINER-FUNERAL HOME ASSOCIATE Work Phone: Start: 09-30-2024 Creatinine blood Lea A Manuel HORSE TRAINER-FUNERAL HOME ASSOCIATE Work Phone: Start: 09-26-2024 CARDIAC RHYTHM Other Ot her Start: 09-26-2024 Natriuretic peptide Ajw ad S Montrell PA-C Work Phone: Start: 09-25-2024 ACT* LOW RANGE, POC Bebeto Gordon MD Work Phone: Start: 09-25-2024 Ephys eval w/ablatio n ventricular tachycardia Vangie Cruz MD Work Phone: Start: 09-25-2024 ACT* LOW RANGE, POC Bebeto Gordon MD Work Phone: Start: 09-25-2024 End: 09-25-2024 ACT* LOW RANGE, POC Nabor Gordon MD Work Phone: Start: 09-25-2024 Prothrombin time Vangie Cruz MD Work Phone: Start: 09-24-2024 Basic metabolic pane l calcium total Taj aCrter MD Work Phone: Start: 09-24-2024 CBC AND ELECTRONIC DIFF Taj Carter MD Work Phone: Start: 09-24-2024 Complete blood count with white cell differential, automated Taj Carter MD Work Phone: Start: 09-23-2024 Antibody screen Tania Zhang MD Work Phone: Start: 09-23-2024 Antibody screen VANGIE MARISCAL Comment on above: Performed By: #### X M #### [facility] (DEFAULT) [address] [place] [address] Start: 09-23-2024 Angiotensin i-conver ting enzyme Man Stock PA-C Work Phone: Start: 09-23-2024 Blood typing serologic abo Vangie Cruz MD Work Phone: Start: 09-23-2024 TTE w or wo fol wcon,Doppler Sourav Peres MD Work Phone: Start: 09-23-2024 Assay of thyroid stimulating hormone tsh Sourav Peres MD Work Phone: Start: 09-23-2024 C-reactive protein Tomasz Stock PA-C Work Phone: Start: 09-22-2024 Assay of magnesium Milo Peres MD Work Phone: Start: 09-22-2024 CBC AND ELECTRONIC DIFF Sourav Peres MD Work Phone: Start: 09-22-2024 Complete blood count with white cell differential, automated Sourav Peres MD Work Phone: Start: 09-08-2024 DEVICE EVALUATION Other Other Start: 08-09-2024 DEVICE EVALUATION Other Other Start: 08-04-2024 DEVICE EVALUATION Other Other Start: 07-21-2024 DEVICE EVALUATION Other Other Start: 06-30-2024 DEVICE EVALUATION Other Other Start: 06-19-2024 DEVICE EVALUATION Other Other Start: 06-12-2024 EXTRA LAVENDER TOP Muha mmad R Geetha MB Work Phone: Start: 06-12-2024 EXTRA TUBES Roland R Geetha MB Work Phone: Start: 06-12-2024 Ct heart contrast ev al cardiac structure&morph Alexander Cox MD Work Phone: Start: 06-12-2024 End: 06-12-2024 Creatinine blood Lea A Lyons HORSE TRAINER-FUNERAL HOME ASSOCIATE Work Phone: Start: 06-04-2024 Radiologic exam ches t 2 views Jordana A Vincent HORSE TRAINER-FUNERAL HOME ASSOCIATE Work Phone: Start: 05-28-2024 DEVICE EVALUATION Other Other Start: 05-26-2024 CONTINUOUS CARDIAC MONITORING STRIP Other Other Start: 05-26-2024 Radiologic exam ches t single view Kelly Lundy Dinh HORSE TRAINER-FUNERAL HOME ASSOCIATE Work Phone: Start: 05-26-2024 Radiologic exam ches t single view Emerald Harden PA-C Work Phone: Start: 05-26-2024 Sodium serum plasma or whole blood Kelly Lundy Tao HORSE TRAINER-FUNERAL HOME ASSOCIATE Work Phone: Start: 05-26-2024 Oscillating positive expiratory pressure (flutter) physiotherapy Emerald Harden PA-C Work Phone: Start: 05-26-2024 Assay of magnesium Gladys Harden PA-C Work Phone: Start: 05-26-2024 CBC AND ELECTRONIC DIFF Emerald Harden PA-C Work Phone: Start: 05-26-2024 Complete blood count with white cell differential, automated Emerald Harden PA-C Work Phone: Start: 05-25-2024 Glucose measurement, blood Prince Falk MD Work Phone: Start: 05-25-2024 DEVICE EVALUATION Other Other Start: 05-25-2024 Oscillating positive expiratory pressure (flutter) physiotherapy Emerald Harden PA-C Work Phone: Start: 05-25-2024 Radiologic exam ches t single view Emerald Harden PA-C Work Phone: Start: 05-25-2024 Level iv surg pathol ogy gross&microscopic exam Prince Falk MD Work Phone: Start: 05-25-2024 Calcium ionized Prince Falk MD Work Phone: Start: 05-25-2024 Prothrombin time Franc Falk MD Work Phone: Start: 05-25-2024 Glucose measurement, blood Prince Falk MD Work Phone: Start: 05-14-2024 Antibody screen Prince Falk MD Work Phone: Start: 05-14-2024 Antibody screen VANGIE MARISCAL Comment on above: Performed By: #### X MPO #### [facility] (DEFAULT) [address] [place] [address] Start: 05-14-2024 Blood typing serologic abo Jordana A Vincent HORSE TRAINER-FUNERAL HOME ASSOCIATE Work Phone: Start: 05-14-2024 CBC AND ELECTRONIC DIFF Jordana A Vincent HORSE TRAINER-FUNERAL HOME ASSOCIATE Work Phone: Start: 05-14-2024 Complete blood count with white cell differential, automated Jordana A Vincent HORSE TRAINER-FUNERAL HOME ASSOCIATE Work Phone: Start: 05-14-2024 Creatinine blood Jordana A Vincent HORSE TRAINER-FUNERAL HOME ASSOCIATE Work Phone: Start: 05-14-2024 PREPARE TO TRANSFUSE OR RED BLOOD CELLS Emerald Harden PA-C Work Phone: Start: 04-13-2024 DEVICE EVALUATION Other Other Start: 04-13-2024 Cardiac mri w/wo con trast & further seq Alexander Cox MD Work Phone: Start: 04-13-2024 Assay of magnesium Azeb Narayanan PA-C Work Phone: Start: 04-12-2024 Assay of magnesium Azeb Narayanan PA-C Work Phone: Start: 04-11-2024 Assay of magnesium Azeb Narayanan PA-C Work Phone: Start: 04-10-2024 Cath plmt l hrt & ar ts w/njx & angio img s&i Soomi Angie PA-C Work Phone: Start: 04-10-2024 Us vasc access sits vsl patency ndl entry Soomi Park PA-C Work Phone: Start: 04-10-2024 Cardiac catheterization Soomi Park PA-C Work Phone: Start: 04-10-2024 CONTINUOUS CARDIAC MONITORING STRIP Other Other Start: 04-10-2024 Electrolyte panel Harriet Narayanan PA-C Work Phone: Start: 04-09-2024 Assay of magnesium Soom i Park PA-C Work Phone: Start: 04-09-2024 Radiologic exam ches t single view Carmela FORDE-C Work Phone: Start: 04-09-2024 Bilirubin direct Keri Narayanan PA-C Work Phone: Start: 04-09-2024 CBC AND ELECTRONIC DIFF Carmela Narayanan PA-C Work Phone: Start: 04-09-2024 Complete blood count with white cell differential, automated Carmela Narayanan PA-C Work Phone: Start: 04-09-2024 Lipid panel Carmela Narayanan PA-C Work Phone: Start: 04-09-2024 DEVICE EVALUATION Other Other Start: 04-09-2024 Lipid 1996 panel - S brian or Plasma Ajit Hurtado MD Work Phone: Start: 02-26-2024 Follow-up visit Follow-up MITALI ALEGRIA [...] hip unilateral with pelvis 2-3 views Ny Parham DO Work Phone: Plan of Treatment Date Care Activity Detail Author Start: 04-09-2029 Lipid panel LIPID SCREENING [facility] Start: 09-30-2025 Potassium [Moles/volume] in Serum or Plasma POTASSIUM [facility] Start: 07-21-2025 Potassium [Moles/volume] in Serum or Plasma POTASSIUM [facility] Start: 06-12-2025 Potassium [Moles/volume] in Serum or Plasma POTASSIUM [facility] Start: 05-26-2025 Potassium [Moles/volume] in Serum or Plasma POTASSIUM [facility] Start: 05-14-2025 Potassium [Moles/volume] in Serum or Plasma POTASSIUM [facility] Start: 05-04-2025 End: 05-04-2025 Patient encounter procedure 05/04/2025 Appointment [facility] [address] [phone] [facility] Start: 02-02-2025 End: 02-02-2025 Patient encounter procedure 02/02/2025 Appointment [facility] [address] [phone] [facility] Start: 01-14-2025 End: 01-14-2025 Patient encounter procedure Account Services Representative Center [facility] Start: 11-10-2024 End: 11-10-2024 Patient encounter procedure 11/10/2024 Appointment [facility] [address] [phone] [facility] Start: 11-05-2024 Potassium [Moles/volume] in Serum or Plasma POTASSIUM [facility] Start: 11-05-2024 End: 11-05-2024 Patient encounter procedure [facility] Start: 10-13-2024 End: 10-13-2024 Patient encounter procedure 10/13/2024 Appointment [facility] [address] [place] [phone] [facility] Start: 09-30-2024 End: 09-30-2024 Admission to same day surgery center 09/30/2024 1:10 PM EST - 09/30/2024 2:25 PM EST Surgery Cardiovascular Imaging Lab [facility] [address] [place] [phone] Alexander Cox MD [address] [place] [phone] PACEMAKER SCHED CHANGEOUT, BIV DEVICE (11984) Cardiovascular Imaging [facility] Comment on above: PACEMAKER SCHED CHANGEOUT, BIV DEVICE ([phone]) Start: 09-30-2024 Subsequent hospital visit by physician 09/30/2024 1:10 PM EST Hospital Encounter Cardiology [facility] [address] [place] [address] 2[address] [place] [phone] Alexander Cox MD [address] [place] [phone] Pacemaker at end of battery life [facility] Comment on above: Pacemaker at end of battery life Start: 09-08-2024 End: 09-08-2024 Patient encounter procedure 09/08/2024 Appointment [facility] [address] [place] [phone] [facility] Start: 08-04-2024 End: 08-04-2024 Patient encounter procedure 08/04/2024 Appointment [facility] [address] [place] [phone] [facility] Start: 07-26-2024 COVID-19 VACCINE () COVID-19 VACCINE () [facility] Start: 07-26-2024 COVID-19 VACCINE ( season) COVID-19 VACCINE () [facility] Start: 07-26-2024 Influenza vaccination [facility] Start: 07-09-2024 End: 07-09-2024 Patient encounter procedure 07/09/2024 1:30 PM EDT [facility] [address] [place] [address] [facility] Start: 06-30-2024 End: 06-30-2024 Patient encounter procedure 06/30/2024 Appointment [facility] [address] [place] [phone] [facility] Start: 06-09-2024 End: 06-09-2024 Patient encounter procedure 06/09/2024 Appointment [facility] [address] [place] [phone] [facility] Start: 06-04-2024 End: 06-04-2024 Patient encounter procedure 06/04/2024 9:00 AM EDT Office Visit Division of Thoracic Surgery at [facility] [address] [facility] 2nd [place] [address] Division of Thoracic Surgery at [facility] Start: 05-25-2024 End: 05-25-2025 XR Chest PA and Lateral XR CHEST PA AND LATERAL 2 VIEWS Imaging Routine Ventricular tachycardia Expected: 05/25/2024, Expires: 05/25/2025 [facility] Comment on above: Expected: 05/25/2024, Expires: Start: 05-25-2024 End: 05-25-2024 Evaluation and management of inpatient CCCT [facility] Comment on above: V-tach SYMPATHECTOMY THORAC IC ROBOTIC Start: 05-25-2024 End: 05-25-2024 Thoracoscopy w/thoracic sympathectomy SYMPATHECTOMY THORACIC ROBOTIC V-tach 05/25/2024 11:15 AM EDT [facility] Start: 05-19-2024 End: 05-19-2024 Anesthesia consultation 05/19/2024 11:30 AM EDT Pre-Operative Nurse Assessment [facility] [address] [place] [address], [place] [phone] Prince Falk MD [address] [place] [address] 2nd Floor [place], [place] [phone] [facility] Start: 05-15-2024 End: 05-15-2024 Patient encounter procedure 05/15/2024 10:00 AM EDT Office Visit Account Services Representative Center [facility] [address] [place] [phone] Host, JT Turner [address] [place] [address] [address] [place] [address] Account Services Representative Center [facility] Start: 05-12-2024 End: 05-12-2024 Patient encounter procedure 05/12/2024 Appointment [facility] [address] [place] [phone] [facility] Start: 04-09-2024 End: 04-09-2025 CHEM 6 (LYTES, BUN CREA) CHEM 6 (LYTES, BUN CREA) Lab Routine Chronic systolic heart failure Expected: 04/09/2024, Expires: 04/09/2025 [facility] Comment on above: Expected: 04/09/2024, Expires: Start: 04-09-2024 End: 04-09-2025 Magnesium [Mass/volume] in Serum or Plasma MAGNESIUM Lab Routine Chronic systolic heart failure Expected: 04/09/2024, Expires: 04/09/2025 [facility] Comment on above: Expected: 04/09/2024, Expires: Start: 04-09-2024 End: 04-09-2025 Thyrotropin [Units/volume] in Serum or Plasma TSH Lab Routine Chronic systolic heart failure Expected: 04/09/2024, Expires: 04/09/2025 [facility] Comment on above: Expected: 04/09/2024, Expires: Start: 04-09-2024 End: 04-09-2024 Patient encounter procedure 04/09/2024 11:30 AM EDT Office Visit Account Services Representative [facility] [address] [place] [phone] Ajit Hurtado MD [address] [place] [address] Account Services Representative [facility] Start: 01-09-2024 End: 01-09-2024 Patient encounter procedure Account Services Representative [facility] Start: 11-28-2023 End: 11-28-2023 Patient encounter procedure [facility] Start: 09-26-2023 End: 09-26-2024 CHEM 6 (LYTES, BUN CREA) CHEM 6 (LYTES, BUN CREA) Lab Routine Chronic systolic heart failure Expected: 09/26/2023, Expires: 09/26/2024 [facility] Comment on above: Expected: 09/26/2023, Expires: Start: 09-26-2023 End: 09-26-2024 Natriuretic peptide B [Mass/volume] in Blood B-TYPE NATRIURETIC PEPTIDE (BRAIN) Lab Routine Chronic systolic heart failure Expected: 09/26/2023, Expires: 09/26/2024 [facility] Comment on above: Expected: 09/26/2023, Expires: 4 Start: 08-01-2023 End: 08-01-2023 Patient encounter procedure 08/01/2023 Office Visit Cardiovascular Medicine Ajit Hurtado MD [address] [place] [phone] Account Services Representative [facility] Start: 07-26-2023 COVID-19 VACCINE () COVID-19 VACCINE () [facility] Start: 07-26-2023 Influenza vaccination INFLUENZA VACCINE (#1) [facility] Start: 05-08-2023 End: 05-08-2023 Patient encounter procedure 05/08/2023 Office Visit Pharmacy Account Services Representative Center [facility] Start: 01-17-2023 End: 01-17-2023 Patient encounter procedure 01/17/2023 Office Visit Cardiovascular Medicine Ajit Hurtado MD [address] [place] [phone] Account Services Representative [facility] Start: 01-10-2023 End: 01-10-2023 Patient encounter procedure 01/10/2023 Office Visit Electrophysiology Alexander Cox MD [address] [place] [phone] Account Services Representative [facility] Start: 01-10-2023 End: 01-10-2023 Patient encounter procedure 01/10/2023 Appointment Echocardiography Ajit Hurtado MD [address] [place] [phone] Cardiovascular Imaging Lab [facility] Start: 11-07-2022 End: 11-07-2022 Patient encounter procedure Account Services Representative [facility] Start: 08-30-2022 End: 08-30-2023 Cardiopulmonary exercise test FUNCTIONAL VO2 TESTING Stress Echocardiography Routine Chronic systolic heart failure Expected: 08/30/2022, Expires: 08/30/2023 [facility] Comment on above: Expected: 08/30/2022, Expires: Start: 08-30-2022 End: 08-30-2023 CHEM 6 (LYTES, BUN CREA) CHEM 6 (LYTES, BUN CREA) Lab Routine Chronic systolic heart failure Expected: 08/30/2022, Expires: 08/30/2023 [facility] Comment on above: Expected: 08/30/2022, Expires: Start: 08-30-2022 End: 08-30-2022 Patient encounter procedure 08/30/2022 Office Visit Cardiovascular Medicine Ajit Hurtado MD [address] [place] [address] Account Services Representative [facility] Start: 07-26-2022 Influenza vaccination INFLUENZA VACCINE (#1) [facility] Start: 12-24-2019 Annual Wellness Visit (AWV) Annual Wellness Visit (AWV) [facility]: Start: 07-26-2019 Influenza vaccination Flu vaccine (#1) [facility]: Start: 07-26-2019 Influenza vaccination given Sequential Influenza Vaccine (#1) [facility] Start: 2015 Administration of herpes zoster vaccine Zoster Vaccines (1 of 2) [facility] Start: 2015 Colon cancer screen colonoscopy Colon cancer screen colonoscopy [facility]: Start: 2015 Prostate specific antigen measurement PROSTATE CANCER SCREENING DISCUSSION [facility] Start: 2015 Shingles Vaccine (1 of 2) Shingles Vaccine (1 of 2) [facility]: Start: 2015 Zoster vaccine hzv live for subcutaneous use ZOSTER (SHINGLES) VACCINE (1 of 2) [facility] Start: 2010 Colonoscopy COLORECTAL CANCER SCREENING DISCUSSION [facility] Start: 2010 Screening for malignant neoplasm of colon COLORECTAL CANCER SCREENING DISCUSSION [facility] Start: 2005 Fasting lipid profile LIPID SCREENING [facility] Start: 2005 Lipid panel LIPID SCREENING [facility] Start: 2005 Lipid screen Lipid screen [facility] Phone: Start: 1984 Hepatitis B vaccination HEP B VACCINE (1 of 3 - 19+ 3-dose series) [facility] Start: 1984 Third diphtheria, tetanus and acellular pertussis (DTaP) vaccination TDAP (ADULT) [facility] Start: 1983 Tetanus vaccination TETANUS [facility] Start: 1980 HIV screen HIV screen [facility]: Start: 1980 HIV screening HIV SCREENING DISCUSSION [facility] Start: 1976 DTaP/Tdap/Td vaccine (1 - Tdap) DTaP/Tdap/Td vaccine (1 - Tdap) [facility]: Start: 1968 History and physical examination, annual for health maintenance Wellness Visit [facility] Start: 03-02-1966 COVID-19 VACCINE (#1) COVID-19 VACCINE (#1) [facility] Start: 1965 Hepatitis B vaccination HEP B VACCINE (1 of 3 - 3-dose series) [facility] Start: 1965 Hepatitis C antibody, confirmatory test [facility] Start: 1965 Hepatitis C screen Hepatitis C screen [facility]: Start: 1965 Hepatitis C screening HEPATITIS C VIRUS SCREENING [facility] Start: 1965 Prostate specific antigen measurement PSA Level [facility] Start: 1965 Screening for malignant neoplasm of colon Colorectal Cancer Screening: Colonoscopy [facility] Start: 1965 Tetanus vaccination [facility] Cardioversion electi ve arrhythmia external CARDIOVERSION (EP LAB) Atrial fibrillation, unspecified type [facility] EP CASE REQUEST - EP OR OC (EPS, ABLATION, DEVICE) CASE REQUEST - EP PROC (EPS, ABLATION, DEVICE) Procedures Routine Pacemaker at end of battery life Ordered: 06/12/2024 [facility] Comment on above: Ordered: 06/12/2024 Cath plmt l hrt & ar ts w/njx & angio img s&i SCHED CATHETERIZATION HEART LT W/ LT VENTRICULAR AND CORONARY ANGIOGRAM [facility] CATH Electrophysiology study EP PROCE DURE - EPS/ABLATION/DEVICE Electrophysiology Routine PVC (premature ventricular contraction) 09/25/2024 12:53 PM EDT [facility] Work Phone: End: 09-08-2024 Electrophysiology study [facility] Comment on above: One Time for 1 Occurrences starting 08/25 until 09/08/2024 Ephys eval w/ablatio n ventricular tachycardia ABLATION SCHED INTERCARDIAC VT EPICARDIAL W/EP EVAL/ MAPPING/DEVICE PROGRAMMING (19030) PVC's (premature ventricular contractions) Ventricular tachycardia [facility] End: 06-09-2024 External electrode cardioversion [facility] Comment on above: One Time for 1 Occurrences starting 05/25 until 06/09/2024 End: 09-23-2024 INTERLEUKIN 2 RECEPTOR [facility] Comment on above: One Time for 1 Occurrences starting 08/27 until 09/23/2024 End: 04-13-2024 Interrogation of cardiac pacemaker PACEMAKER/ICD INTERROGATION Cardiac Services Routine One Time for 1 Occurrences starting 04/13/2024 until 04/13/2024 [facility] Work Phone: Comment on above: One Time for 1 Occurrences starting 03/26 until 04/13/2024 End: 05-25-2024 Interrogation of cardiac pacemaker PACEMAKER/ICD INTERROGATION Cardiac Services STAT One Time for 1 Occurrences starting 05/25/2024 until 05/25/2024 [facility] Work Phone: Comment on above: One Time for 1 Occurrences starting 11/2023 until 05/25/2024 End: 09-23-2024 LYSOZYME (MURAMIDASE) [facility] Comment on above: One Time for 1 Occurrences starting 08/27 until 09/23/2024 Measurement of respiratory function PFT STANDARD PFT Routine Encounter for long-term (current) use of high-risk medication PVC's (premature ventricular contractions) Encounter for long-term (current) use of medications 11/07/2022 2:40 PM EST [facility] Remvl perm pm pls ge n w/repl plse gen mult lead PACEMAKER SCHED CHANGEOUT, BIV DEVICE (06702) Pacemaker at end of battery life [facility] End: 04-09-2024 Standard ECG [facility] Work Phone: Comment on above: One Time for 1 Occurrences starting 03/25 until 04/09/2024 End: 06-12-2024 Standard ECG ECG ECG STAT One Time for 1 Occurrences starting 06/12/2024 until 06/12/2024 [facility] Work Phone: Comment on above: One Time for 1 Occurrences starting 05/25 until 06/12/2024 Standard ECG ECG ECG STAT 3:56 PM EDT [facility] End: 09-30-2024 Standard ECG ECG ECG STAT One Time for 1 Occurrences starting 09/30/2024 until 09/30/2024 [facility] Work Phone: Comment on above: One Time for 1 Occurrences starting 04/2024 until 09/30/2024 Payers Date Payer Category Payer Medicare [id number] 2019 Medicare xxxxxxx [id number] 2019 Unknown [id number] 1965 Unknown [id number] 2.16.84 [id number] 1965 Unknown [id number] 2.16.84 [id number] 1965 Unknown [id number] 2.16.84 [id number] 1965 Unknown [id number] 2.16.8 [id number] 1965 Unknown [id number] 2.16.8 [id number] 1965 Unknown [id number] 2.16.8 [id number] 1965 Unknown [id number] 2.16.84 [id number] 1965 Unknown [id number] 2.16.84 [id number] 1965 Unknown [id number] 2.16.84 [id number] 1965 Unknown [id number] 2.16.84 0.1.348682.3.579.2.593 1965 Unknown [id number] 2.16.84 0.1.318232.3.579.2.593 1965 Unknown [id number] 2.16.84 0.1.210823.3.579.2.593 1965 Unknown [id number] 2.16.84 0.1.824046.3.579.2.593 1965 Unknown [id number] 2.16.84 0.1.628734.3.579.2.593 1965 Unknown [id number] 2.16.84 0.1.972642.3.579.2.593 1965 Unknown [id number] 2.16.84 0.1.276358.3.579.2.593 1965 Unknown [id number] 2.16.84 0.1.782529.3.579.2.593 1965 Unknown [id number] 2.16.84 0.1.367520.3.579.2.593 1965 Unknown [id number] 2.16.84 0.1.354037.3.579.2.593 1965 Unknown [id number] 2.16. 840.1.965558.3.579.2.594 1965 Unknown [id number] 2.16. 840.1.240232.3.579.2.594 1965 Unknown [id number] 2. 840.1.430649.3.579.2.594 1965 Unknown [id number] 2. 840.1.234641.3.579.2.594 1965 Unknown [id number] 2. 840.1.365287.3.579.2.594 1965 Unknown [id number] 2. 840.1.232214.3.579.2.594 1965 Unknown [id number] 2. 840.1.797330.3.579.2.594 1965 Unknown [id number] 2. 840.1.155304.3.579.2.594 1965 Unknown [id number] 2. 840.1.683718.3.579.2.594 1965 Unknown [id number] 2. 840.1.472574.3.579.2.594 1965 Unknown [id number] 2. 840.1.453491.3.579.2.594 1965 Unknown [id number] 2. 840.1.893909.3.579.2.594 1965 Unknown [id number] 2 840.1.324914.3.579.2.594 1965 Unknown [id number] 840.1.739057.3.579.2.594 1965 Unknown [id number] 840.1.894516.3.579.2.594 1965 Unknown [id number] 2. 840.1.661415.3.579.2.594 1965 Unknown [id number] . 840.1.572331.3.579.2.594 1965 Unknown [id number] 2 840.1.609578.3.579.2.594 1965 Unknown [id number] 2.16. 840.1.178381.3.579.2.594 1965 Unknown [id number] 2.16. 840.1.098102.3.579.2.594 1965 Unknown [id number] 2.16. 840.1.914263.3.579.2.594 1965 Unknown [id number] 2.16. 840.1.316062.3.579.2.594 1965 Unknown [id number] 2.16. 840.1.884017.3.579.2.594 1965 Unknown [id number] 2.16. 840.1.515716.3.579.2.594 1965 Unknown [id number] 2.16 840.1.171219.3.579.2.594 1965 Unknown [id number] 2. 840.1.893826.3.579.2.594 1965 Unknown [id number] 2.16. 840.1.786997.3.579.2.594 1965 Unknown [id number] 2.16. 840.1.826681.3.579.2.594 1965 Unknown [id number] 2.16. 840.1.865304.3.579.2.594 1965 Unknown [id number] 2.16 840.1.225870.3.579.2.594 1965 Unknown [id number] 2.16. 840.1.028307.3.579.2.594 1965 Unknown [id number] 2.16 840.1.265703.3.579.2.594 1965 Unknown [id number] 2.16 840.1.356435.3.579.2.594 1959 Medicare [id number] Medicare [id number] Unknown [id number] Social History Date Type Detail Facility Start: 03-23-2020 End: 05-23-2023 Tobacco smoking status NHIS Never smoker [facility]: Start: 03-23-2020 End: 09-23-2024 Alcohol intake Current drinker of alcohol (finding) [facility] Start: 1965 Sex Assigned At Not on file [facility]: Start: 05-09-2017 End: 05-23-2023 Tobacco use and exposure Smokeless tobacco non-user [facility] Start: 07-21-2020 History SDOH Alcohol Frequency 2 [facility] Start: 05-02-2022 History SDOH Alcohol Comment occasional [facility] Start: 06-29-2021 End: 06-04-2024 Alcohol intake [facility] Start: 10-28-2022 End: 01-31-2023 Exposure to SARS-CoV-2 (event) Not sure [facility] Start: 09-26-2023 Alcohol intake Ex-drinker (finding) [facility] Start: 07-21-2020 End: 06-04-2024 Alcohol Use Disorder Identification Test - Consumption [AUDIT-C] [facility] How often to you hav e a drink containing alcohol? Monthly or less [facility] Average Number of Drinks Not on file [facility] Start: 09-26-2023 Alcohol Comment occasionally few beers-not weekly [facility] Gender identity Identifies as ma le gender (finding) [facility] Has the [employer], [employer], or water [employer] threatened to shut off services in your home in past 12Mo No [facility] (I/We) worried whecihng er (my/our) food would run out before (I/we) got money to buy more. Never true [facility] Medical Equipment Procedure Code Equipment Code Equipment Origin al Text Equipment Identifier Dates Filler 10cc Bone Void Cerament - [id number] Start: 03-24-2020 Screw 3.5 X 30mm Non Lock Ti Alloy Motoband Cp - [id number] Start: 03-24-2020 Bioactive Bone G raft Putty 7.5cc [id number] Start: 03-24-2020 Screw 7 X 55 X 1 6mm Umesh Headed Short Thrd Unite - [id number] Start: 03-24-2020 Plate 18mm Z Bet a Motoband Max - [id number] Start: 03-24-2020 Dynaforce Plate Sterile Instrument Kit [id number] Start: 03-24-2020 Kit 18 X 18 X 18 mm Superelastic Motoclip Himax - [id number] Start: 03-24-2020 Screw 4.5 X 50mm Umesh Headed Unite - [id number] Start: 03-24-2020 4 Screws And 2 [address] [id number] St art: 03-24-2020 Comment on above: Description: Revisio n calcaneus 5 Screws And 1 Plate [id number] Sta rt: 03-24-2020 Comment on above: Description: Revisio n Icd [id number] Start: 07-10-2016 Lead-07/10/2016 [id number] Start: 07-10-2016 Lead-07/10/2016 [id number] Start: 07-10-2016 Lead-07/10/2016 [id number] Start: 07-10-2016 Device Closure Perclose Proglide 6fr - [id number] Start: 04-10-2024 Vascade Mvp Xl [id number] Start: 09-25-2024 Vascade Mvp Xl [id number] Start: 09-25-2024 Defibrillator Ca rdiac [id number] Quadra Assura Mp - [id number] Start: 09-30-2024 Icd [id number] Start: 09-30-2024 Clinical Notes 06-01-2022 to 09-30-2024 Nursing Notes - Lillian Her RN - 09/30/2024 4:21 PM ESTNursing Notes - Lillian Her RN - 09/30/2024 4:21 PM ESTNursing Notes - Mitzi Carrillo RN - 09/30/2024 11:11 AM ESTDischarge Instr - Activity Note Date & Type Note Facility 09-30-2024 Nurse Note Discharge instructions and printed AVS reviewed with patient by Rn, all questions answered. Pt verbalizes understanding. IV dc'd with no difficulty and catheter tip intact. Telemetry dc'd. VS stable at time of discharge. Patient being discharged to home by car with . No patient belongings left at bedside. Post procedure recovery without events. Left upper chest site without bleeding or hematoma, palpable bilateral pulses. Ambulates prior to DC without difficulty. [facility] 09-30-2024 Miscellaneous Notes Discharge instructions and printed AVS reviewed with patient by Rn, all questions answered. Pt verbalizes understanding. IV dc'd with no difficulty and catheter tip intact. Telemetry dc'd. VS stable at time of discharge. Patient being discharged to home by car with . No patient belongings left at bedside. Post procedure recovery without events. Left upper chest site without bleeding or hematoma, palpable bilateral pulses. Ambulates prior to DC without difficulty. Pt arrives to room 2408in IPR for change out. ECG completed. IV started in left arm. Labs drawn and sent. 0.9 NS IVF initiated @ 10mL/ hr per pump. Pt prep completed. Valuables given to self. Clothes secured in room. Questions about procedure answered. Family brought to bedside. Bed in low position, side rail up x2 and call light given to pt. Tele monitor shows . documented in this encounter [facility] 09-30-2024 Hospital Discharge instructions Bety Judd, [employer] - 09/30/2024 3:21 PM EST Driving Restrictions If you have passed out, do not drive for 3 months after your last episode. If you have any questions about this restriction, please call your healthcare provider's office. Rest for 24 hours after you are home. You should have someone with you to help you the first night you are home. DO NOT make any important decisions for 24 hours. DO NOT work around the stove, machinery or power equipment for 24 hours. [facility] - 09/30/2024 3:21 PM EST Diet: Cardiac 4gm NA Low sodium, low fat, low cholesterol, caffeine controlled. Sodium restricted to 4 grams. [facility] - 09/30/2024 3:21 PM EST Images from the original note were not included. Check your site each day and call the the [facility] if you have: Increased drainage or bleeding at the site An incision that opens Redness, swelling, or warmth at the site A pimple that develops at the incision A thread (suture) along the incision A fever greater than 101 degrees for 38.3 degrees C When you are nauseated, you may feel weak and sweaty and notice a lot of saliva in your mouth. Nausea often leads to vomiting. Most of the time you do not need to worry about nausea and vomiting, but they can be signs of other illnesses. The doctor has checked you carefully, but problems can develop later. If you notice any problems or new symptoms, get medical treatment right away. Follow-up care is a andujar part of your treatment and safety. Be sure to make and go to all appointments, and call your doctor if you are having problems. It's also a good idea to know your test results and keep a list of the medicines you take. How can you care for yourself at home? To prevent dehydration, drink plenty of fluids, enough so that your urine is light yellow or clear like water. Choose water and other caffeine-free clear liquids until you feel better. If you have kidney, heart, or liver disease and have to limit fluids, talk with your doctor before you increase the amount of fluids you drink. Rest in bed until you feel better. When you are able to eat, try clear soups, mild foods, and liquids until all symptoms are gone for 12 to 48 hours. Other good choices include dry toast, crackers, cooked cereal, and gelatin dessert, such as Jell-O. When should you call for help? Call 911 anytime you think you may need emergency care. For example, call if: You passed out (lost consciousness) Call your doctor now or seek immediate medical care if: You have symptoms of dehydration, such as: Dry eyes and a dry mouth Passing only a little dark urine Feeling thirstier than usual You have new or worsening belly pain You have a new or higher fever You vomit blood or what looks like coffee grounds Watch closely for changes in your health, and be sure to contact your doctor if: You have on going nausea and vomiting Your vomiting gets worse Your vomiting last longer than 2 days You are not getting better as expected Where can you learn more? Go to [email or web address] chart. JT Davis - 09/30/2024 3:22 PM EST Your incision care The pacemaker may buldge slightly under the skin. This is normal and common right after surgery. This will lesson over the nxt few weeks. You may have bruising around the incision, especially if you take blood thinner medicines, called anticoagulants, such as aspirin or warfarin. Itching is a normal part of the healing process. Try not to rub or scratch the incision site. Keep your incision clean and dry. Your dressing is waterproof and can be worn in the shower. Your dressing can be left in place for up to seven (7) days. Dressing may need to be changed sooner, depending on the amount of fluid it absorbs. Dressing flexes with skin during body movement. The following attachments cannot be sent through Care Everywhere.[employer]QU[employer] Surgical Dressing ([facility]) (Tunisian)documented in this encounter [facility] 09-30-2024 Nurse Note Pt arrives to room 2408in IPR for change out. ECG completed. IV started in left arm. Labs drawn and sent. 0.9 NS IVF initiated @ 10mL/ hr per pump. Pt prep completed. Valuables given to self. Clothes secured in room. Questions about procedure answered. Family brought to bedside. Bed in low position, side rail up x2 and call light given to pt. Tele monitor shows . [facility] 09-26-2024 Miscellaneous Notes Patient received AVS instructions and RN reviewed along with medication list provided by physician @ bedside. Patient denies any questions or concerns. Peripheral IV & telemetry discontinued per physician order. Patient tolerated procedure without difficulty. Patient denies having any medications secured in medication room upon admission. Patient will be discharged home via wheelchair with belongings and copy of discharge instructions accompanied by hospital staff once patient is dressed & is ready to leave hospital. Patient without signs or symptoms of distress noted. Electrophysiology Consult SIGN OFF Patient underwent successful PVC ablation with two PVC locations ablated on the basal posteroseptal aspect of the LV. PVC frequency significantly improved. Continue Amiodarone. Resume AC today (if stays on Warfarin should be therapeutically bridged vs DOAC if no other indication of Warfarin/cost prohibitive). We will set up follow up in EP clinic. Thank you for allowing us to participate in the care of Tania Venegas. Our consult team will sign off today, 09/26/24. For our full impression and recommendations, please see our most recent consult / progress note. Regarding follow up, please note the following: Follow Up Appointments Our consult team will arrange the above follow up visit(s) Follow Up Testing No additional testing is required at the follow up visit. Medication Changes No changes were made to patient's cardiovascular medications. If you have any further questions regarding the care of this patient, please do not hesitate to reach out to our team. Phong Gomes DO 09/26/24 9:43 AM Problem: Adult Inpatient Plan of Care Goal: Plan of Care Review Outcome: Progressing Vital signs completed per protocol. Monitoring intake and output q8h. Assessing pain q4h and medicate prn. Obtaining daily weights. Labs completed per protocol and will report any abnormal values to physician. Plan of care reviewed and updated with patient and patient demonstrates understanding. Problem: Heart Failure Goal: Fluid and Electrolyte Balance Outcome: Progressing Strict intake and outputs q8h. Daily weights completed. Patient on low sodium cardiac diet with fluid restriction if appropriate. Congestive Heart Failure Educator consulted. Cardiac Rehab consulted if applicable. 0710am Report of PIV WITH ULTRASOUND GUIDANCE Consultation and Evaluation: Patient seen and evaluated for PIV insertion using ultrasound guidance. ID band present, allergies and limb precautions verified with patient/nurse. Skin integrity within normal limits at time of insertion. No evidence of ecchymosis, infiltration, hematoma, edema, or any condition that would prevent safe insertion of a PIV [X ] ultrasound used [ ] ultrasound not used Procedure explained to patient. Anatomical distortion to interfere with placement: none PROCEDURE DETAILS: PIV Insertion Procedure Using standard aseptic technique access was obtained. Good blood return noted, catheter flushed easily with 10mls 0.9 NS per lumen. Securement device used to secure PIV. Dressing applied. Pt denies pain at insertion site. Peripheral IV Line - Single Lumen 09/25/24 0710 median cubital vein (antecubital fossa), left 18 gauge;1 1/4 in length (Active) 09/25/24 0710 Present On Admission : no Guiding Device: ultrasound Lumen 1: Additional Lumens: Lumen 2: Location: median cubital vein (antecubital fossa), left Device/Lot Number: [id number] catheter system Gauge/Length: 18 gauge;1 1/4 in length Unsuccessful Insertion Attempts: Unsuccessful Attempt Location/Site: Pain Prevention/Patient Tolerance: Removal: Additional Comments: Lumen 3: Peripheral IV Present on Admission: (Retired/Read Only) Location: (Retired/Read Only) Device: (Retired/Read Only) Gauge/Length: General Claims Agent/Lot Number: [id number] Insertion Attempts: (Retired/Read Only) Unsuccessful Attempt Locations: Pain Prevention: Patient Tolerance: Insertion: Removal Indication: Peripheral IV Location - Orientation: Peripheral IV Location: Insertion Site WDL WDL 09/25/24709 Site Preparation/Maintenance dressing: dry and intact 09/25/24709 Lumen 1 Patency/Maintenance flushed without difficulty;blood return, able to obtain 09/25/24709 Phlebitis 0-->no symptoms 09/25/24709 Infiltration 0-->no symptoms 09/25/24709 Patient tolerated procedure well without any complications [] Lidocaine 1% used prior insertion [x] No Lidocaine used Extra insertion note if applicable: RN notified of procedure completion [ ] Obtained labs. [X] Call light in reach. [X] Bed low and locked. [X] Tray table within reach. Education: Patient/Family informed to notify nurse of any complications including pain, redness, swelling, or leakage post insertion. Problem: Adult Inpatient Plan of Care Goal: Plan of Care Review Vital signs completed per protocol. Monitoring intake and output q8h. Assessing pain q4h and medicate prn. Obtaining daily weights. Labs completed per protocol and will report any abnormal values to physician. Plan of care reviewed and updated with patient and patient demonstrates understanding. Patient remains free from injury. Bed in low position and locked. Patient ID band on and verified. Call light in reach and demonstrated use. Nonskid socks worn when out of bed. Fall wheel updated at bedside. Patient encouraged to call for assistance prior to getting out of bed. High fall risk patient not left alone in bathroom. Bed and chair alarms used when appropriate. Problem: Dysrhythmia Goal: Normalized Cardiac Rhythm Outcome: Progressing Continuous cardiac monitoring as ordered. ECGs obtained per protocol. Electrolytes replaced with prn orders when appropriate. Antiarrhythmic given as scheduled. Problem: Heart Failure Goal: Optimal Coping Outcome: Progressing Strict intake and outputs q8h. Daily weights completed. Patient on low sodium cardiac diet with fluid restriction if appropriate. Congestive Heart Failure Educator consulted. Cardiac Rehab consulted if applicable. Problem: Obstructive Sleep Apnea Risk or Actual Goal: Unobstructed Breathing During Sleep Outcome: Progressing Problem: Adult Inpatient Plan of Care Goal: Plan of Care Review Outcome: Progressing Flowsheets (Taken 09/22/20241816) Progress: (New Admission) -- Plan of Care Reviewed With: patient spouse Note: Patient admitted to unit from home. RN reviewed Fall Prevention Hospital Policy. Call light in reach & oriented to use. Patient updated re: plan of care- vital signs every 4 hours per physician order, will be monitoring intake and output q8h. Nursing will be assessing patient's pain q4h and medicate prn per physician order. Daily weights to be obtained early am. Labs to be completed per physician order. Nursing staff will perform hourly rounding per hospital protocol. Daily Joint rounds to be completed with patient, physician & nurse @ bedside during hospital stay. Plan of care reviewed- Echo has been ordered; pt will be NPO after midnight for possible EP procedure. HF has been consulted. Patient was seen by PCP earlier today. Per H&P Physician note- Patient had an EKG done which showed patient was in AFIb. Patient called EP office and had device interrogated- patient w/ frequent NSVT below detection on presenting rhythm. As a result, Patient was directly admitted for EP evaluation to [facility]. EP team has been consulted to provide recommendations. Patient denies any questions or concerns. RN will continue to assist patient as needed. Goal: Patient-Specific Goal (Individualized) Outcome: Progressing Flowsheets (Taken 09/22/20241816) Individualized Care Needs: denies Anxieties, Fears or Concerns: denies Patient/Family-Specific Goals (Include Timeframe): denies Goal: Absence of Hospital-Acquired Illness or Injury Outcome: Progressing Intervention: Identify and Manage Fall Risk Flowsheets (Taken 09/22/2024 1800 by POLLY Hurt) Safety Promotion/Fall Prevention: safety round/check completed room organization consistent nonskid shoes/slippers when out of bed fall prevention program maintained clutter-free environment maintained assistive device/personal items within reach Intervention: Prevent Skin Injury Flowsheets Taken 09/22/20241816 by Trini Muse RN Body Position: up in chair Device Skin Pressure Protection: adhesive use limited Taken 09/22/2024 1800 by POLLY Hurt Positioning Assistance Provided: positioned/repositioned independently Taken 09/22/2024 1620 by Trini Muse RN Skin Protection: protective footwear used Intervention: Prevent and Manage VTE (Venous Thromboembolism) Risk Flowsheets (Taken 09/22/2024 1620) VTE Prevention/Management: (coumadin po per physician order; last dose yesterday evening.) N/A - Pharmacologic Intervention (No Mechanical Prophylaxis - Therapeutic Anticoagulation) Intervention: Prevent Infection Flowsheets (Taken 09/22/2024 1817) Infection Prevention: hand hygiene promoted rest/sleep promoted single patient room provided Goal: Optimal Comfort and Wellbeing Outcome: Progressing Note: Monitor pain, administer pain medications as ordered, and reassess an hour after intervention. Patient denies any complaints of pain on admission Goal: Readiness for Transition of Care Outcome: Progressing Problem: Dysrhythmia Goal: Normalized Cardiac Rhythm Outcome: Progressing Note: EP consulted per physician order. Continuous cardiac monitoring as ordered. ECGs obtained per protocol. Electrolytes replaced with prn orders when appropriate. Antiarrhythmic amiodarone will be given as scheduled per physician order which is an home medication. On admission to [address] [place] [address]- direct admit from home a dual RN initial assessment of skin condition was performed by RADHA Feliz and ANH Leal RN Skin Assessment: Skin intact; however, scars and one tattoo present Pierce Score: 22 documented in this encounter [facility] 09-26-2024 Nurse Note Patient received AVS instructions and RN reviewed along with medication list provided by physician @ bedside. Patient denies any questions or concerns. Peripheral IV & telemetry discontinued per physician order. Patient tolerated procedure without difficulty. Patient denies having any medications secured in medication room upon admission. Patient will be discharged home via wheelchair with belongings and copy of discharge instructions accompanied by hospital staff once patient is dressed & is ready to leave hospital. Patient without signs or symptoms of distress noted. [facility] 09-26-2024 Plan of care note Electrophysiology Consult SIGN OFF Patient underwent successful PVC ablation with two PVC locations ablated on the basal posteroseptal aspect of the LV. PVC frequency significantly improved. Continue Amiodarone. Resume AC today (if stays on Warfarin should be therapeutically bridged vs DOAC if no other indication of Warfarin/cost prohibitive). We will set up follow up in EP clinic. Thank you for allowing us to participate in the care of Tania Venegas. Our consult team will sign off today, 09/26/24. For our full impression and recommendations, please see our most recent consult / progress note. Regarding follow up, please note the following: Follow Up Appointments Our consult team will arrange the above follow up visit(s) Follow Up Testing No additional testing is required at the follow up visit. Medication Changes No changes were made to patient's cardiovascular medications. If you have any further questions regarding the care of this patient, please do not hesitate to reach out to our team. Phong Gomes DO 09/26/24 9:43 AM [facility] Work Phone: 09-26-2024 Plan of care note Problem: Adult Inpatient Plan of Care Goal: Plan of Care Review Outcome: Progressing Vital signs completed per protocol. Monitoring intake and output q8h. Assessing pain q4h and medicate prn. Obtaining daily weights. Labs completed per protocol and will report any abnormal values to physician. Plan of care reviewed and updated with patient and patient demonstrates understanding. Problem: Heart Failure Goal: Fluid and Electrolyte Balance Outcome: Progressing Strict intake and outputs q8h. Daily weights completed. Patient on low sodium cardiac diet with fluid restriction if appropriate. Congestive Heart Failure Educator consulted. Cardiac Rehab consulted if applicable. [facility] 09-25-2024 History of Present illness Narrative Hospital Medicine Progress Note Patient: Tania Venegas, : 1965, Impression / Plan Tania Venegas is a 58 y.o. 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 NSVT - s/p sympathectomy Atrial fibrillation - s/p multiple ablations. Chadvasc 3 Bradycardia s/p GENERAL SCRAP WORKER-D -Follow-up device interrogation -Continue amiodarone -Per [facility] perioperative anticoagulation guideline for EP procedure, will continue warfarin pre op due to consideration for ablation -EP consulted - EPS and ablation today Acute on chronic systolic heart failure NICM - 2/2 Non-hodgkins lymphoma, anthracycline toxcity -Last TTE in February w/ EF 31%, grade III diastolic dysfunction. -Repeat TTE. -continue IV lasix 40 BID -Continue metoprolol -continue home losartan -hold home eplerenone, reintroduce when BP allows -Fluid restriction, I&Os -CHF team consulted CAD - [facility] (04/17) w/ moderate non-obstructive disease in LAD w/ 50% LAD lesion -Continue statin, BB -Consider resuming ASA HTN - BP meds as above HLD - statin BRANNON - cpap Complexity Hyponatremia - Secondary to fluid shifts. Monitor. Hypocalcemia - Continue to monitor and replete. Obesity Body mass index is 33.49 kg/m . - Follow with PCP for dietary and lifestyle modifications. Patient has implanted cardiac device Any conditions listed below are present on admission unless otherwise specified. Medical Readiness For Discharge: DVT prophylaxis with warfarin Anticipated Disposition: home Code status is Full Code Interval History / Subjective Unable to see as patient was at procedure all day Objective Temp: [97.8 F (36.6 C)-98.6 F (37 C)] 98.6 F (37 C) Pulse (Heart Rate): [63-83] 65 Resp Rate: [12-22] 14 BP: (104-115)/(57-78) 115/69 O2 Sat (%): [94 %-97 %] 97 % Data Review WBC/Hgb/Hct/Plts: 8.73/13.8/41.6/283 (09/25 627) Na/K+/Phos/Mg/Ca: 134/4.5/--/--/-- (09/25 627) Bun/Creat/Cl/CO2/Glucose: 23/1.17/101/24/109 (09/25 627) Ptt/Pt/Inr: --/18.2/1.5 (09/25 627) [facility] Medicine Progress Note Patient: Tania Venegas, : 1965, Impression / Plan Tania Venegas is a 58 y.o. 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 NSVT - s/p sympathectomy Atrial fibrillation - s/p multiple ablations. Chadvasc 3 Bradycardia s/p GENERAL SCRAP WORKER-D -Follow-up device interrogation -Continue amiodarone -Per [facility] perioperative anticoagulation guideline for EP procedure, will continue warfarin pre op due to consideration for ablation -EP consulted - EPS and ablation tomorrow Acute on chronic systolic heart failure NICM - 2/2 Non-hodgkins lymphoma, anthracycline toxcity -Last TTE in February w/ EF 31%, grade III diastolic dysfunction. -Repeat TTE. -continue IV lasix 40 BID -Continue metoprolol -continue home losartan -hold home eplerenone, reintroduce when BP allows -Fluid restriction, I&Os -CHF team consulted CAD - [facility] (04/17) w/ moderate non-obstructive disease in LAD w/ 50% LAD lesion -Continue statin, BB -Consider resuming ASA HTN - BP meds as above HLD - statin BRANNON - cpap Complexity Hypocalcemia - Continue to monitor and replete. Obesity Body mass index is 33.49 kg/m . - Follow with PCP for dietary and lifestyle modifications. Patient has implanted cardiac device Any conditions listed below are present on admission unless otherwise specified. Medical Readiness For Discharge: DVT prophylaxis with warfarin Anticipated Disposition: home Code status is Full Code Interval History / Subjective -feeling better today with diuresis, no new issues, feeling better Objective Temp: [97.4 F (36.3 C)-98.2 F (36.8 C)] 97.9 F (36.6 C) Pulse (Heart Rate): [60-92] 64 Resp Rate: [17-18] 18 BP: (91-115)/(55-80) 108/70 O2 Sat (%): [95 %-98 %] 98 % Weight: [115.1 kg (253 lb 12.8 oz)] 115.1 kg (253 lb 12.8 oz) Physical Exam Gen: A, A, NAD ENT: MMM, JVD to angle of jaw Resp: CTA bilat, normal effort Cardio: RRR, normal S1, S2, 1+ pitting edema GI: S/NT/ND Psych: Oriented and appropriate Data Review WBC/Hgb/Hct/Plts: 8.06/12.1/37.7/221 (09/24 514) Na/K+/Phos/Mg/Ca: 136/3.9/--/--/8.6 (09/24 514) Bun/Creat/Cl/CO2/Glucose: 27/1.20/101/27/94 (09/24 514) Ptt/Pt/Inr: --/19.2/1.6 (09/24 514) HEART FAILURE Follow up CONSULTATION NOTE: Patient Name: Tania Venegas Date of Consult: 09/24/2024 Reason for Consultation: Acute on Chronic Systolic Heart Failure Requesting Provider: Nabor Gordon MD on [facility] Service CURRENT HOSPITALIZATION/ LOS: Admit Date: [facility]22/[facility] HISTORY OF PRESENT ILLNESS: It was my pleasure to see Mr. Tania Venegas in consultation at the [facility] on 09/24/2024 for evaluation of his Acute on Chronic Systolic Heart Failrue. He is a pleasant 59 y.o. 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 Hurtado and Dain Marmolejo, DEACON for Heart Failure care as outpatient. Patient has noted increase fatigue with exertion over the past several weeks progressively worse. Device interrogation demonstrated frequent NSVT. Hospital Course Review: Patient continues to diurese well. BP remains on low side, Cr stable. No complaints of dyspnea or otheropnea, laying supine to sleep. 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 Vasodilator: No secondary to Hypotension ICD / GENERAL SCRAP WORKER: BiV ICD - 59% GENERAL SCRAP WORKER Pacing, 36% RA Pacing Heart Failure Research Opportunities - Does not meet criteria for inpatient clinical trials Heart Healthy diet with 4 gram Na, 2L fluid restriction Weigh daily Strict I/O Sarcoid work up Demonstrates low suspicion. O further work up needed Sarcoid Work up Results HS Trop Lab Results Component Value Date HSTROP 21 09/22/2024 BNP Lab Results Component Value Date BNP 871 (H) 09/22/2024 BNP 434 (H) 07/21/2024 LFT's Recent Labs 09/22/24 1617 09/24/24 0514 INR 1.9* 1.6* ESR Lab Results Component Value Date SEDRATE 31 (H) 09/23/2024 CRP Lab Results Component Value Date CRP 19.23 (H) 09/23/2024 ALAN Lab Results Component Value Date ANGIOTCNVTEN 51 09/23/2024 Ca Lab Results Component Value Date CALCIUM 8.6 09/24/2024 PHOSPHORUS 2.8 04/09/2024 Vit D Interleukin [address] 06/12/24 Chest Wall: no major deformity. Mediastinum: prominent lymph nodes with none measuring greater than 1 cm Liss: normal, without adenopathy. Pleural Spaces: small left sided pleural effusion. Lung Parenchyma: Scattered airspace opacifications in the GEOFFREY, and subsegmental atelectasis noted Cardiac MRI 04/13/24 Severe biventricular systolic dysfunction with predominantly non-ischemic fibrosis. Findings are non-specific, but fibrosis pattern can be seen in prior myocarditis or cardiac sarcoidosis Paroxysmal Atrial Fibrillation/Flutter, Paroxysmal VT - s/p sympathectomy 05/25/24 - Remains on Amiodarone, metoprolol and Warfarin - 0% AT/AF burden documented on device check on 09/22/24, scheduled for Device Change out 09/30/24 - Frequent NSVT noted - EP Consulted - Planning for EP Study and ablation 09/25/24 [id number] Score for Atrial Fibrillation Stroke Risk Age in Years: <65 Sex: Male CHF History: Yes Hypertension History: Yes Stroke/TIA/Thromboembolism History: No Vascular Disease History: Yes Diabetes History: No [id number] Score: 3 Lab Results Component Value Date INR 1.6 (H) 09/24/2024 INR 1.9 (H) 09/22/2024 INR 3.4 (H) 06/12/2024 Non Obstructive Sun'Aq Coronary Artery Disease - No active Angina, Normal Trop, No Ischemic EKC changes Lab Results Component Value Date HSTROP 21 09/22/2024 Statin - Crestor 10mg daily Anti Anginal - Torpol XL 50/25 Anti Platelet - AA 81mg daily Hypertensive Heart Disease - Controlled on current therapy - observe with GDMT optimization BP Readings from Last 3 Encounters: 09/24/24 98/74 07/21/24 110/70 07/09/24 134/82 Obesity Body mass index is 33.49 kg/m . Hyperlipidemia - continue with Crestor 10mg daily Lab Results Component Value Date CHOLESTEROL 187 04/09/2024 TRIG 294 (H) 04/09/2024 HDL 36 (L) 04/09/2024 LDLCALC 92 04/09/2024 Complexity. Hypocalcemia - Continue to monitor and replete. Obesity Body mass index is 33.49 kg/m . - Follow with PCP for dietary and lifestyle modifications. Any conditions listed below are present on admission unless otherwise specified. .None RECOMMENDATIONS: Resume Eplerenone therapy post EP Procedure Change Lasix to 40mg PO BID Sarcoid work up low suspicion - no further work up needed Follow up with Dain Boyce and Dr. Hurtado in 7-10 days, request for appt placed. Please do not hesitate to contact us for any further questions regarding the care of this patient. Man Stock PA-C Heart Failure Consult Service [phone] / Pager #[phone] MEDICATIONS: CURRENT MEDS: Scheduled Meds: AMIOdarone 200 mg Oral Daily furosemide 40 mg Intravenous BID AC Losartan 50 mg Oral Daily Metoprolol succinate 25 mg Oral QHS Metoprolol succinate 50 mg Oral QAM Rosuvastatin 10 mg Oral Daily Warfarin 2.5 mg Oral Once per day on Saturday Warfarin 5 mg Oral Once per day on Saturday Continuous Infusions: HOME MEDICATIONS: Medications Prior to Admission Medication Sig Dispense Refill Last Dose Acetaminophen 325 MG tablet Take 2 tablets by mouth every 4 hours as needed. Past Month AMIOdarone 200 MG tablet Take 1 tablet by mouth daily. 90 tablet 1 09/22/2024 aspirin 81 MG Chew Tab chewable tablet Chew 1 tablet daily. 30 tablet 0 Past Month eplerenone 25 MG tablet Take 1 tablet by mouth daily. 90 tablet 3 09/21/2024 Losartan 50 MG tablet Take 1 tablet by mouth daily. 30 tablet 3 09/22/2024 Metoprolol succinate 50 MG tablet XL 50mg QAM + 25mg QPM 135 tablet 2 09/22/2024 rosuvastatin 10 MG tablet Take 1 tablet by mouth daily. Past Month Slow Magnesium/Calcium 70-[address] Take 1 tablet by mouth daily. 09/22/2024 warfarin 5 MG tablet Take 0.5-1 tablets by mouth every evening at 6 PM. Alternate between 2.5 mg and 5 mg daily. INR managed at [facility] 09/21/2024 Amoxicillin 500 MG capsule Take 4 capsules by mouth. 1 hour prior to dental appointments Docusate 100 MG capsule Take 1 capsule by mouth 2 times daily. furOSEmide 40 MG tablet Take 1 tablet by mouth daily as needed. ALLERGIES: Allergies Allergen Reactions Seasonal [*Seasonal] hayfever PHYSICAL EXAM: Vital Signs (24hrs): Temp: [97.4 F (36.3 C)-98.2 F (36.8 C)] 98.2 F (36.8 C) Pulse (Heart Rate): [60-92] 74 Resp Rate: [16-18] 18 BP: (91-115)/(55-80) 98/74 O2 Sat (%): [95 %-97 %] 96 % Weight: [115.1 kg (253 lb 12.8 oz)] 115.1 kg (253 lb 12.8 oz) Current Weight Weight: 115.1 kg (253 lb 12.8 oz) (standing - white scale) Fluid Management (24hrs): Intake/Output last 3 shifts: I/O last 3 completed shifts: In: 1505 [P.O.:1505] Out: 3450 [Urine:3450] Physical Exam Constitutional: He appears chronically ill. Neck: No JVD present. Cardiovascular: S1 normal and S2 normal. An irregularly irregular rhythm present. Pulses: Radial pulses are 1+ on the right side and 1+ on the left side. Pulmonary/Chest: He has no wheezes. He has no rales. Abdominal: Soft. Bowel sounds are normal. He exhibits no distension. There is no abdominal tenderness. Musculoskeletal: General: Edema (Chronic 1+) present. Neurological: He is alert and oriented to person, place, and time. Skin: Skin is warm and dry. LABORATORY / PROCEDURES EKG: V Paced, RBBB underlying Atrial Fibrillation TTE: 09/23/24 - Left ventricle is mildly enlarged with severe global hypokinesis. Ejection fraction 25-30%. - Right ventricle is enlarged with moderately reduced function. Device wire present. - Moderate biatrial dilation. - No hemodynamically significant valvular disease. - RVSP could not be estimated. Ischemic Eval: 04/10/24 Coronary angiography: The left main is angiographically normal.. The left anterior descending (LAD) has moderate non-obstructive disease throughout with a 50% proximal LAD lesion. The left circumflex (LCx) has mild disease throughout. The right coronary artery is has mild disease throughout with a 40% mid RCA lesion and a 40% distal RCA lesion. Right dominant coronary arterial circulation. Cardiac MRI: 03/2024 Severe biventricular systolic dysfunction with predominantly non-ischemic fibrosis. Findings are non-specific, but fibrosis pattern can be seen in prior myocarditis or cardiac sarcoidosis. Labs: Lab Results Component Value Date WBC 8.06 09/24/2024 HGB 12.1 (L) 09/24/2024 HCT 37.7 (L) 09/24/2024 PLATELET 221 09/24/2024 MCV 93.3 09/24/2024 Lab Results Component Value Date SODIUM 136 09/24/2024 POTASSIUM 3.9 09/24/2024 CHLORIDE 101 09/24/2024 CO2 27 09/24/2024 BUN 27 (H) 09/24/2024 CREATSERUM 1.20 09/24/2024 GLUCOSE 94 09/24/2024 Lab Results Component Value Date ALT 9 (L) 07/09/2024 AST 20 07/09/2024 ALKPHOS 78 07/09/2024 BILITOTAL 0.5 04/09/2024 BILIDIRECT 0.1 04/09/2024 Ptt/Pt/Inr: --/19.2/1.6 (09/24 514) Cholesterol Date Value Ref Range Status 04/09/2024 187 <200 mg/dL Final Comment: [<200 mg/dL: Desirable] [200-239 mg/dL: Borderline High] [>239 mg/dL: High] HDL Cholesterol Date Value Ref Range Status 04/09/2024 36 (L) >=40 mg/dL Final Comment: [<40 mg/dL: Low (High Risk)] [>59 mg/dL: High (Low Risk)] Triglycerides Date Value Ref Range Status 04/09/2024 294 (H) <150 mg/dL Final Comment: [<150 mg/dL: Desirable] [150-199 mg/dL: Borderline] [200-499 mg/dL: High] [>500 mg/dL: Very High] Lab Results Component Value Date HSTROP 21 09/22/2024 Lab Results Component Value Date BNP 871 (H) 09/22/2024 BNP 434 (H) 07/21/2024 BNP 347 (H) 07/09/2024 Lab Results Component Value Date TSH 2.789 09/23/2024 T4FREE 1.43 01/09/2024 Lab Results Component Value Date IRON 87 04/09/2024 FERRITIN 36.2 04/09/2024 Man Stock MS (AJ), SUKH, KALYAN HF2/Advanced Heart Failure Pager ID: [phone] Discharge Planning Patient Assessment Admission Assessment Patient Assessment Completed: Initial Expected Discharge Disposition: Home Reason for Admission: SOB Is the patient able to participate in the assessment?: Yes Information source: Patient Demographics Verified and Updated: Yes Advanced Care Planning Has the patient completed Advance Directives?: Not Completed Referral to Social Work for Advance Care Planning? : Patient Agreeable Legal Next of Kin Spouse: Yes Name and Contact information: Juliaan Venegas, Adult Child(maribell), List All Adult Children: Yes Reviewed and Updated in Demographics? : Yes Outpatient Providers Does patient have a primary care physician? : Yes When was the patient's last PCP visit?: < 30 days Patient Care Team: Oliver Springer Jr., DO as PCP - General (Internal Medicine) Alexander Cox MD as PCP - Referring 2 (Clinical Cardiac Electrophysiology) Mojgan Zelaya MD (Interventional Cardiology) Environment/Caregivers Is the patient from a facility or fpc?: No Patient lives with: Spouse or Partner Living Environment: House How many steps does the patient have to navigate to enter or inside the home? : 2 Story house Does the patient have a first floor set-up with bed and bathroom?: No Patient Caregiving Responsibilities: Spouse Patient-identified caregiver/support network: Family Who does the patient identify as a teachable caregiver(s)?: Spouse or Partner Services Does the patient use a home health or hospice agency?: No Current with dialysis?: No Does the patient use any community programs or services?: No Does patient use DME? : none Does the patient use oxygen?: No Does patient use medical supplies? : none Initial ADLs Prior to Arrival What is the patient's baseline physical functioning prior to this acute illness?: independent What is the patient's baseline cognitive functioning prior to this acute illness?: independent Is the patient's baseline functioning changed by this acute illness? : No Medication Management Does the patient have prescription insurance coverage? : Yes [id number] [place] [address] - [address] [facility] [address] [place] [id number] [employer] Does the patient or healthcare representative express financial concerns? : No Employed?: Disabled Values and Beliefs Cultural or bahai practices that may impact discharge planning and/or medical care?: No Initial Discharge Planning Expected Discharge Disposition: Home Transportation Available for Discharge: Family or Friend, Private Vehicle Anticipated DME: none Patient Assessment Completed: Initial Expected Discharge Date: 09/24/2024 Discharge Planning Summary SW met with patient to complete IA. Patient is independent in the home and does not anticipate any needs at this time. He confirms he will have a ride home at discharge. SW had consult for HCPOA information. SW explained the documents and told him to reach out if he had any questions. Care Management Plan Role of Virtual Customer Assistant explained while admitted to [facility] 2. PCP/Specialist/pharmacy information updated as needed 3. Patient demographic/address/emergency contact information verified LINO Jessica Gas Meter Reader [facility] Medicine Progress Note Patient: Tania Venegas, : 1965, Impression / Plan Tania Venegas is a 58 y.o. 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 NSVT - s/p sympathectomy Atrial fibrillation - s/p multiple ablations. Chadvasc 3 Bradycardia s/p GENERAL SCRAP WORKER-D -Follow-up device interrogation -Continue amiodarone -Per [facility] perioperative anticoagulation guideline for EP procedure, will continue warfarin pre op due to consideration for ablation -EP consulted Acute on chronic systolic heart failure NICM - 2/2 Non-hodgkins lymphoma, anthracycline toxcity -Last TTE in February w/ EF 31%, grade III diastolic dysfunction. -Repeat TTE. -continue IV lasix 40 BID -Continue metoprolol -continue home losartan -hold home eplerenone, reintroduce when BP allows -Fluid restriction, I&Os -CHF team consulted CAD - [facility] (04/17) w/ moderate non-obstructive disease in LAD w/ 50% LAD lesion -Continue statin, BB -Consider resuming ASA HTN - BP meds as above HLD - statin BRANNON - cpap Complexity Obesity Body mass index is 33.89 kg/m . - Follow with PCP for dietary and lifestyle modifications. Patient has implanted cardiac device Any conditions listed below are present on admission unless otherwise specified. Medical Readiness For Discharge: DVT prophylaxis with warfarin Anticipated Disposition: home Code status is Full Code Interval History / Subjective -feeling better today with diuresis, 2.6L negative yesterday Objective Temp: [97.8 F (36.6 C)-98.7 F (37.1 C)] 97.9 F (36.6 C) Pulse (Heart Rate): [67-96] 79 Resp Rate: [15-20] 16 BP: (86-122)/(62-90) 114/77 O2 Sat (%): [95 %-97 %] 97 % Weight: [116.5 kg (256 lb 12.8 oz)-121.2 kg (267 lb 4.8 oz)] 116.5 kg (256 lb 13.4 oz) Physical Exam Gen: A, A, NAD ENT: MMM, JVD to angle of jaw Resp: CTA bilat, normal effort Cardio: RRR, normal S1, S2, 2+ pitting edema up to knees GI: S/NT/ND Psych: Oriented and appropriate Data Review WBC/Hgb/Hct/Plts: 7.37/11.2/34.8/212 (10/30 0302) Na/K+/Phos/Mg/Ca: 141/4.3/--/1.8/8.7 (09/22 1617-09/23 302) Bun/Creat/Cl/CO2/Glucose: 21/1.21/105/26/90 (09/23 302) Ptt/Pt/Inr: 33.8/22.0/1.9 (09/22 1617) Department of Pharmacy Admission Medication Reconciliation Note Patient: Tania Venegas Room/Bed: 7004/A I have reviewed the patient's home medication list with the following sources Patient recall with prompting, Dispense Report, OARRs, [facility] Review, and Medication list reviewed in conjunction with provider/nurse interview . I have also reviewed this list with the pharmacist. A call to the pharmacy was not needed because the information compiled from listed sources corroborates the patient/caregiver interview. I am recommending the following changes to the home medication list. These recommendations are considered preliminary until attestation of this note by a pharmacist. Added to Home Medications: Amoxicillin 500 mg - STREET CAR INSPECTOR (dental) Furosemide 40 mg - as needed Ipratropium 0.06% nasal - Not picked up Montelukast 10 mg - Not picked up Tiotropium 2.5 mcg inhaler - Not picked up Edits to Home Medications: Warfarin - Updated to patient reported directions: alternate 2.5 mg and 5 mg daily, previously listed as 7.5 mg on Saturday / , 5 mg all other days. Per bedside nurse: Patient has alternating dose- Saturday, Saturday, Saturday, Saturday- patient takes 5 mg po daily/evening; Saturday, , Saturday patient takes 2.5 mg po po daily/evening. Other Comments: The patient's allergies were not reviewed at this time. New prescriptions were sent over to local pharmacy and not picked up by patient; patient reports local doctor prescribed in case his discomfort was sinus related. Aspirin - Reports missed doses at home, ran out about a week ago Baclofen - Patient reports not taking at home Rosuvastatin - Reports missed doses at home Please feel free to contact me with any further questions. Name: Eduardo Flaherty Phone #: [phone] Date/Time: 09/23/2024 10:29 AM Time Spent: 20 minutes Associated attestation - Rosario Mcmullen RPH - 09/23/2024 12:12 PM EDT Department of Pharmacy Admission Medication Reconciliation Note Patient: Tania Venegas Room/Bed: 7004/A I have reviewed the home medication list with the Patient Admitting Representative. The home medication list status is: complete. All changes to the home medication list have been updated in I[facility]IS. Updated STREET CAR INSPECTOR Med List: Prior to Admission Medications Prescriptions AMIOdarone 200 MG tablet Sig: Take 1 tablet by mouth daily. Acetaminophen 325 MG tablet Sig: Take 2 tablets by mouth every 4 hours as needed. Amoxicillin 500 MG capsule Sig: Take 4 capsules by mouth. 1 hour prior to dental appointments Docusate 100 MG capsule Sig: Take 1 capsule by mouth 2 times daily. Losartan 50 MG tablet Sig: Take 1 tablet by mouth daily. Metoprolol succinate 50 MG tablet XL Simg QAM + 25mg QPM Slow Magnesium/Calcium 70-[address] Sig: Take 1 tablet by mouth daily. aspirin 81 MG Chew Tab chewable tablet Sig: Chew 1 tablet daily. eplerenone 25 MG tablet Sig: Take 1 tablet by mouth daily. furOSEmide 40 MG tablet Sig: Take 1 tablet by mouth daily as needed. rosuvastatin 10 MG tablet Sig: Take 1 tablet by mouth daily. warfarin 5 MG tablet Sig: Take 0.5-1 tablets by mouth every evening at 6 PM. Alternate between 2.5 mg and 5 mg daily. INR managed at [facility] Facility-Administered Medications: None Please feel free to contact me with any further questions. Name: Rosario Mcmullen RPH Phone #: [phone] Date/Time: 09/23/2024 12:11 PM SW attempted to meet with the patient to complete an initial assessment. Patient was getting echo at the time. SW will attempt again at a later time. Addendum 1:35pm SW attempted to meet with patient to complete IA. Patient unavailable at this time. LINO Jessica Gas Meter Reader documented in this encounter [facility] 09-25-2024 Nurse Note 0710am Report of PIV WITH ULTRASOUND GUIDANCE Consultation and Evaluation: Patient seen and evaluated for PIV insertion using ultrasound guidance. ID band present, allergies and limb precautions verified with patient/nurse. Skin integrity within normal limits at time of insertion. No evidence of ecchymosis, infiltration, hematoma, edema, or any condition that would prevent safe insertion of a PIV [X ] ultrasound used [ ] ultrasound not used Procedure explained to patient. Anatomical distortion to interfere with placement: none PROCEDURE DETAILS: PIV Insertion Procedure Using standard aseptic technique access was obtained. Good blood return noted, catheter flushed easily with 10mls 0.9 NS per lumen. Securement device used to secure PIV. Dressing applied. Pt denies pain at insertion site. Peripheral IV Line - Single Lumen 09/25/24709 median cubital vein (antecubital fossa), left 18 gauge;1 1/4 in length (Active) 09/25/24709 Present On Admission : no Guiding Device: ultrasound Lumen 1: Additional Lumens: Lumen 2: Location: median cubital vein (antecubital fossa), left Device/Lot Number: [id number] catheter system Gauge/Length: 18 gauge;1 1/4 in length Unsuccessful Insertion Attempts: Unsuccessful Attempt Location/Site: Pain Prevention/Patient Tolerance: Removal: Additional Comments: Lumen 3: Peripheral IV Present on Admission: (Retired/Read Only) Location: (Retired/Read Only) Device: (Retired/Read Only) Gauge/Length: General Claims Agent/Lot Number: Unsuccessful Insertion Attempts: (Retired/Read Only) Unsuccessful Attempt Locations: Pain Prevention: Patient Tolerance: Insertion: Removal Indication: Peripheral IV Location - Orientation: Peripheral IV Location: Insertion Site WDL WDL 09/25/24709 Site Preparation/Maintenance dressing: dry and intact 09/25/24709 Lumen 1 Patency/Maintenance flushed without difficulty;blood return, able to obtain 09/25/24709 Phlebitis 0-->no symptoms 11/01/24 0710 Infiltration 0-->no symptoms 09/25/24 0710 Patient tolerated procedure well without any complications [] Lidocaine 1% used prior insertion [x] No Lidocaine used Extra insertion note if applicable: RN notified of procedure completion [ ] Obtained labs. [X] Call light in reach. [X] Bed low and locked. [X] Tray table within reach. Education: Patient/Family informed to notify nurse of any complications including pain, redness, swelling, or leakage post insertion. [facility] 09-25-2024 Plan of care note Problem: Adult Inpatient Plan of Care Goal: Plan of Care Review Vital signs completed per protocol. Monitoring intake and output q8h. Assessing pain q4h and medicate prn. Obtaining daily weights. Labs completed per protocol and will report any abnormal values to physician. Plan of care reviewed and updated with patient and patient demonstrates understanding. Patient remains free from injury. Bed in low position and locked. Patient ID band on and verified. Call light in reach and demonstrated use. Nonskid socks worn when out of bed. Fall wheel updated at bedside. Patient encouraged to call for assistance prior to getting out of bed. High fall risk patient not left alone in bathroom. Bed and chair alarms used when appropriate. Problem: Dysrhythmia Goal: Normalized Cardiac Rhythm Outcome: Progressing Continuous cardiac monitoring as ordered. ECGs obtained per protocol. Electrolytes replaced with prn orders when appropriate. Antiarrhythmic given as scheduled. Problem: Heart Failure Goal: Optimal Coping Outcome: Progressing Strict intake and outputs q8h. Daily weights completed. Patient on low sodium cardiac diet with fluid restriction if appropriate. Congestive Heart Failure Educator consulted. Cardiac Rehab consulted if applicable. Problem: Obstructive Sleep Apnea Risk or Actual Goal: Unobstructed Breathing During Sleep Outcome: Progressing [facility] 09-23-2024 Consult note Associated Order (s): IP CONSULT TO CARDIOLOGY - EP Cardiac Electrophysiology Consultation Patient Name: Tania Venegas Date of Consult: 09/23/2024 Reason for Consultation: pt of dr cox who was direct admit for nsvt, please assist w/ eval/management IMPRESSION & RECOMMENDATIONS: Tania Venegas is a 59 y.o. male who was seen by the EP Consult Service on 09/23/2024. We are asked to assist in management of NSVT. IMPRESSION PCVs/NSVT s/p previous unsuccessful ablation due to epicardial location and s/p sympathectomy on 05/25/2024 Acute on chronic HFrEF (LVEF 31%) 2/2 NICM from anthracycline toxicity S/p GENERAL SCRAP WORKER-D with declining GENERAL SCRAP WORKER pacing (59% on most recent device eval) 2/2 PVC burden Atrial fibrillation s/p ablation c/b perforation (2016, in [place]), s/p cryo + CTI (06/2017), and s/p repeat CTI ablation (12/2020) Non-obstructive CAD with 50% proximal LAD lesion on 04/10/24 coronary angiogram RECOMMENDATIONS - Given frequent runs of NSVT and low GENERAL SCRAP WORKER pacing at 59%, will plan for repeat EP study and ablation - If able, recommend increasing dose of beta block therapy to assist with PVC suppression - Recommend continuing to optimize patient's ADHF Wagner Bowers MD Internal Medicine, PGY3 Pager: [phone] This consult was discussed with Dr. Cruz, EP attending physician. If you have any questions or need any further information, please feel free to contact the EP Consult Service. Thank you for allowing us to participate in the care of Tania Venegas. HPI: Tania Venegas is a 59 y.o. male with HFrEF (LVEF 31%) 2/2 NICM from anthracycline toxicity s/p GENERAL SCRAP WORKER-D, atrial fibrillation s/p multiple ablations, PCVs/VT s/p unsuccessful ablation & s/p sympathectomy (05/25/24), non-obstructive CAD, non-hodgkin's lymphoma s/p anthracycline chemotherapy 2006 who presents for NSVT. His recent device interrogation showed frequent runs of NSVT below detection in the 130s as well as low GENERAL SCRAP WORKER pacing at 59%. Patient endorses progressive dyspnea on exertion, lower extremity edema, and palpitations. He was seen by his PCP prior to admission where EKG revealed AFIB with RVR. Today, he endorses some improvement in his dyspnea and swelling with IV diuresis. Regarding his PVC/VT history, patient had previous failed ablation due to epicardial location and failed suppression with Mexiletine and ranolazine. PAST MEDICAL HISTORY: PAST MEDICAL HISTORY He has a past medical history of A-fib, Arrhythmia, Arthritis, Atherosclerotic heart disease [place] coronary artery w/angina pectoris (04/10/2024), Bradycardia, Carcinoma of colon, Chest pain, CHF (congestive heart failure), Diastolic dysfunction, HLD (hyperlipidemia) (05/25/2024), Hypertension, Lymphoma, Nonischemic congestive cardiomyopathy, Pacemaker, Restless legs, Sleep apnea, Systolic dysfunction, and Systolic heart failure. He has no past medical history of Anemia, Asthma, Bleeding disorder, COPD (chronic obstructive pulmonary disease), Depression, Diabetes mellitus, GERD (gastroesophageal reflux disease), Glaucoma, Hepatitis, HIV (human immunodeficiency virus infection), Hyperthyroidism, Hypothyroidism, Liver disease, DE (myocardial infarction), Migraine, Renal disease, Seizure, Sickle cell anemia, Stroke, TIA (transient ischemic attack), or Vascular disease. SOCIAL HISTORY He reports that he has never smoked. He has never used smokeless tobacco. He reports current alcohol use. He reports that he does not use drugs. FAMILY HISTORY His family history includes Colorectal Cancer in his father; Other - Specify in his father and mother. He He indicated that his mother is . He indicated that his father is . PAST SURGICAL HISTORY His has a past surgical history that includes icd placement; foot surgery (Bilateral); atrial fibrillation ablation (N/A, 07/19/2017); hip replacement (Bilateral); cholecystectomy; colectomy; and sympathectomy thoracic robotic (Bilateral, 05/25/2024). ALLERGIES Allergies Allergen Reactions Seasonal [*Seasonal] hayfever HOME MEDICATIONS Medications Prior to Admission Medication Sig Dispense Refill Last Dose Acetaminophen 325 MG tablet Take 2 tablets by mouth every 4 hours as needed. Past Month AMIOdarone 200 MG tablet Take 1 tablet by mouth daily. 90 tablet 1 09/22/2024 aspirin 81 MG Chew Tab chewable tablet Chew 1 tablet daily. 30 tablet 0 Past Month eplerenone 25 MG tablet Take 1 tablet by mouth daily. 90 tablet 3 09/21/2024 Losartan 50 MG tablet Take 1 tablet by mouth daily. 30 tablet 3 09/22/2024 Metoprolol succinate 50 MG tablet XL 50mg QAM + 25mg QPM 135 tablet 2 09/22/2024 rosuvastatin 10 MG tablet Take 1 tablet by mouth daily. Past Month Slow Magnesium/Calcium 70-[address] Take 1 tablet by mouth daily. 09/22/2024 warfarin 5 MG tablet Take 0.5-1 tablets by mouth every evening at 6 PM. Alternate between 2.5 mg and 5 mg daily. INR managed at [facility] 09/21/2024 Amoxicillin 500 MG capsule Take 4 capsules by mouth. 1 hour prior to dental appointments Docusate 100 MG capsule Take 1 capsule by mouth 2 times daily. furOSEmide 40 MG tablet Take 1 tablet by mouth daily as needed. CURRENT MEDICATIONS AMIOdarone 200 mg Oral Daily furosemide 40 mg Intravenous BID AC Losartan 50 mg Oral Daily Metoprolol succinate 25 mg Oral QHS Metoprolol succinate 50 mg Oral QAM Rosuvastatin 10 mg Oral Daily [START ON 09/24/2024] Warfarin 2.5 mg Oral Once per day on Saturday Warfarin 5 mg Oral Once per day on Saturday REVIEW OF SYSTEMS: General: denies fevers, chills, malaise, weight loss, night sweats HEENT: denies headache, vision changes, hearing changes, rhinorrhea, sore throat Respiratory: shortness of breath, cough, dyspnea on exertion Cardiovascular: denies palpitations, chest pain, orthopnea, edema GI/: denies nausea, vomiting, abdominal pain, diarrhea, dysuria, hematuria Extremities: denies myalgias, edema Skin: no rash Neuro: no change in sensation, loss of consciousness Psych: denies anxiety, depression, substance abuse PHYSICAL EXAM: Intake/Output Summary (Last 24 hours) at 09/23/2024 1523 Last data filed at 09/23/2024 1400 Gross per 24 hour Intake 855 ml Output 4275 ml Net -3420 ml Temp: [97.4 F (36.3 C)-98.7 F (37.1 C)] 97.4 F (36.3 C) Pulse (Heart Rate): [67-96] 81 Resp Rate: [15-18] 17 BP: (86-122)/(62-80) 115/80 O2 Sat (%): [95 %-97 %] 95 % Weight: [116.5 kg (256 lb 12.8 oz)-116.5 kg (256 lb 13.4 oz)] 116.5 kg (256 lb 13.4 oz) Physical Exam General appearance - alert and oriented, and in no distress. Neck - elevated JVP. Carotids - normal upstroke, no bruits. Chest - clear to auscultation, no wheezing, rales or rhonchi, not in acute resp distress. Heart - normal rate, regular rhythm, normal s1/s2, no murmurs, rubs, or gallops Peripheral vascular: peripheral pulses normal Abdomen - soft, non-tender, non-distended, normal bowel sounds. Extremities - warm and well perfused. no edema. Skin - normal color and turgor, no generalized rash. Psych - mood appropriate. Neuro - mentation intact, moving all extremities independently. DATA REVIEWED: EKG (09/22/24): V-paced rhythm with frequent PVCs Lab Results Component Value Date SODIUM 141 09/23/2024 SODIUM 140 11/05/2023 POTASSIUM 4.3 09/23/2024 POTASSIUM 4.0 05/25/2024 POTASSIUM 3.9 11/05/2023 GLUCOSE 90 09/23/2024 GLUCOSE 174 (H) 05/25/2024 GLUCOSE 101 09/19/2022 CHLORIDE 105 09/23/2024 CHLORIDE 104 11/05/2023 CO2 26 09/23/2024 CO2 31.1 11/05/2023 BUN 21 09/23/2024 BUN 17.0 11/05/2023 CREATSERUM 1.21 09/23/2024 CREATSERUM 1.24 06/12/2024 CREATSERUM 1.10 11/05/2023 TSH 2.789 09/23/2024 TSH 1.108 12/10/2018 Lab Results Component Value Date WBC 7.37 09/23/2024 WBC 6.66 12/10/2018 HGB 11.2 (L) 09/23/2024 HGB 13.4 12/10/2018 HCT 34.8 (L) 09/23/2024 HCT 40.7 12/10/2018 PLATELET 212 09/23/2024 PLATELET 220 12/10/2018 MCV 93.3 09/23/2024 MCV 86.6 12/10/2018 Lab Results Component Value Date BNP 871 (H) 09/22/2024 BNP 434 (H) 07/21/2024 BNP 347 (H) 07/09/2024 BNP 1,159 11/05/2023 Echocardiogram (09/23/24): - Left ventricle is mildly enlarged with severe global hypokinesis. Ejection fraction 25-30%. - Right ventricle is enlarged with moderately reduced function. Device wire present. - Moderate biatrial dilation. - No hemodynamically significant valvular disease. - RVSP could not be estimated. Associated attestation - Vangie Cruz MD - 09/24/2024 2:28 PM EDT Attending Physician Note I have personally interviewed and examined this patient with the IM Resident on 09/23/2024. I have reviewed the history and examination and edited these in the note above. I agree with the medical decision and components of the note as edited by me. Patient is alert and oriented and VS stable. He has frequent uniform PVCs and underpacing of GENERAL SCRAP WORKER therapy with acute and chronic systolic heart failure. PVC ablation was attempted previously and complicated by cardiac perforation in [place]. Concern also that the PVC was epicardial in location. Despite trials of AAD therapy, he has had continued frequent PVCS/NSVT. Today, we discussed repeat EPS/RFA attempt with endocardial and epicardial approach once further stablized from acute CHF. The procedure was explained with indication, risks and benefits and he consents to proceed. We will plan to increase beta ashley therapy presently as well. Vangie Cruz MD, [facility], [facility] Gail Schofield Chair in Cardiac Electrophysiology Professor of Clinical Medicine [facility] Work Phone: 09-23-2024 Consult note Associated Order (s): IP CONSULT TO CARDIOLOGY - EP Cardiac Electrophysiology Consultation Patient Name: Tania Venegas Date of Consult: 09/23/2024 Reason for Consultation: pt of dr cox who was direct admit for nsvt, please assist w/ eval/management IMPRESSION & RECOMMENDATIONS: Tania Venegas is a 59 y.o. male who was seen by the EP Consult Service on 09/23/2024. We are asked to assist in management of NSVT. IMPRESSION PCVs/NSVT s/p previous unsuccessful ablation due to epicardial location and s/p sympathectomy on 05/25/2024 Acute on chronic HFrEF (LVEF 31%) 2/2 NICM from anthracycline toxicity S/p GENERAL SCRAP WORKER-D with declining GENERAL SCRAP WORKER pacing (59% on most recent device eval) 2/2 PVC burden Atrial fibrillation s/p ablation c/b perforation (2016, in [place]), s/p cryo + CTI (06/2017), and s/p repeat CTI ablation (12/2020) Non-obstructive CAD with 50% proximal LAD lesion on 04/10/24 coronary angiogram RECOMMENDATIONS - Given frequent runs of NSVT and low GENERAL SCRAP WORKER pacing at 59%, will plan for repeat EP study and ablation - If able, recommend increasing dose of beta block therapy to assist with PVC suppression - Recommend continuing to optimize patient's ADHF Wagner Bowers MD Internal Medicine, PGY3 Pager: [phone] This consult was discussed with Dr. Cruz, EP attending physician. If you have any questions or need any further information, please feel free to contact the EP Consult Service. Thank you for allowing us to participate in the care of Tania Venegas. HPI: Tania eVnegas is a 59 y.o. male with HFrEF (LVEF 31%) 2/2 NICM from anthracycline toxicity s/p GENERAL SCRAP WORKER-D, atrial fibrillation s/p multiple ablations, PCVs/VT s/p unsuccessful ablation & s/p sympathectomy (05/25/24), non-obstructive CAD, non-hodgkin's lymphoma s/p anthracycline chemotherapy 2006 who presents for NSVT. His recent device interrogation showed frequent runs of NSVT below detection in the 130s as well as low GENERAL SCRAP WORKER pacing at 59%. Patient endorses progressive dyspnea on exertion, lower extremity edema, and palpitations. He was seen by his PCP prior to admission where EKG revealed AFIB with RVR. Today, he endorses some improvement in his dyspnea and swelling with IV diuresis. Regarding his PVC/VT history, patient had previous failed ablation due to epicardial location and failed suppression with Mexiletine and ranolazine. PAST MEDICAL HISTORY: PAST MEDICAL HISTORY He has a past medical history of A-fib, Arrhythmia, Arthritis, Atherosclerotic heart disease [place] coronary artery w/angina pectoris (04/10/2024), Bradycardia, Carcinoma of colon, Chest pain, CHF (congestive heart failure), Diastolic dysfunction, HLD (hyperlipidemia) (05/25/2024), Hypertension, Lymphoma, Nonischemic congestive cardiomyopathy, Pacemaker, Restless legs, Sleep apnea, Systolic dysfunction, and Systolic heart failure. He has no past medical history of Anemia, Asthma, Bleeding disorder, COPD (chronic obstructive pulmonary disease), Depression, Diabetes mellitus, GERD (gastroesophageal reflux disease), Glaucoma, Hepatitis, HIV (human immunodeficiency virus infection), Hyperthyroidism, Hypothyroidism, Liver disease, [place] (myocardial infarction), Migraine, Renal disease, Seizure, Sickle cell anemia, Stroke, TIA (transient ischemic attack), or Vascular disease. SOCIAL HISTORY He reports that he has never smoked. He has never used smokeless tobacco. He reports current alcohol use. He reports that he does not use drugs. FAMILY HISTORY His family history includes Colorectal Cancer in his father; Other - Specify in his father and mother. He He indicated that his mother is . He indicated that his father is . PAST SURGICAL HISTORY His has a past surgical history that includes icd placement; foot surgery (Bilateral); atrial fibrillation ablation (N/A, 07/19/2017); hip replacement (Bilateral); cholecystectomy; colectomy; and sympathectomy thoracic robotic (Bilateral, 05/25/2024). ALLERGIES Allergies Allergen Reactions Seasonal [*Seasonal] hayfever HOME MEDICATIONS Medications Prior to Admission Medication Sig Dispense Refill Last Dose Acetaminophen 325 MG tablet Take 2 tablets by mouth every 4 hours as needed. Past Month AMIOdarone 200 MG tablet Take 1 tablet by mouth daily. 90 tablet 1 09/22/2024 aspirin 81 MG Chew Tab chewable tablet Chew 1 tablet daily. 30 tablet 0 Past Month eplerenone 25 MG tablet Take 1 tablet by mouth daily. 90 tablet 3 09/21/2024 Losartan 50 MG tablet Take 1 tablet by mouth daily. 30 tablet 3 09/22/2024 Metoprolol succinate 50 MG tablet XL 50mg QAM + 25mg QPM 135 tablet 2 09/22/2024 rosuvastatin 10 MG tablet Take 1 tablet by mouth daily. Past Month Slow Magnesium/Calcium 70-[address] Take 1 tablet by mouth daily. 09/22/2024 warfarin 5 MG tablet Take 0.5-1 tablets by mouth every evening at 6 PM. Alternate between 2.5 mg and 5 mg daily. INR managed at [facility] 09/21/2024 Amoxicillin 500 MG capsule Take 4 capsules by mouth. 1 hour prior to dental appointments Docusate 100 MG capsule Take 1 capsule by mouth 2 times daily. furOSEmide 40 MG tablet Take 1 tablet by mouth daily as needed. CURRENT MEDICATIONS AMIOdarone 200 mg Oral Daily furosemide 40 mg Intravenous BID AC Losartan 50 mg Oral Daily Metoprolol succinate 25 mg Oral QHS Metoprolol succinate 50 mg Oral QAM Rosuvastatin 10 mg Oral Daily [START ON 09/24/2024] Warfarin 2.5 mg Oral Once per day on Saturday Warfarin 5 mg Oral Once per day on Saturday REVIEW OF SYSTEMS: General: denies fevers, chills, malaise, weight loss, night sweats HEENT: denies headache, vision changes, hearing changes, rhinorrhea, sore throat Respiratory: shortness of breath, cough, dyspnea on exertion Cardiovascular: denies palpitations, chest pain, orthopnea, edema GI/: denies nausea, vomiting, abdominal pain, diarrhea, dysuria, hematuria Extremities: denies myalgias, edema Skin: no rash Neuro: no change in sensation, loss of consciousness Psych: denies anxiety, depression, substance abuse PHYSICAL EXAM: Intake/Output Summary (Last 24 hours) at 09/23/2024 1523 Last data filed at 09/23/2024 1400 Gross per 24 hour Intake 855 ml Output 4275 ml Net -3420 ml Temp: [97.4 F (36.3 C)-98.7 F (37.1 C)] 97.4 F (36.3 C) Pulse (Heart Rate): [67-96] 81 Resp Rate: [15-18] 17 BP: (86-122)/(62-80) 115/80 O2 Sat (%): [95 %-97 %] 95 % Weight: [116.5 kg (256 lb 12.8 oz)-116.5 kg (256 lb 13.4 oz)] 116.5 kg (256 lb 13.4 oz) Physical Exam General appearance - alert and oriented, and in no distress. Neck - elevated JVP. Carotids - normal upstroke, no bruits. Chest - clear to auscultation, no wheezing, rales or rhonchi, not in acute resp distress. Heart - normal rate, regular rhythm, normal s1/s2, no murmurs, rubs, or gallops Peripheral vascular: peripheral pulses normal Abdomen - soft, non-tender, non-distended, normal bowel sounds. Extremities - warm and well perfused. no edema. Skin - normal color and turgor, no generalized rash. Psych - mood appropriate. Neuro - mentation intact, moving all extremities independently. DATA REVIEWED: EKG (09/22/24): V-paced rhythm with frequent PVCs Lab Results Component Value Date SODIUM 141 09/23/2024 SODIUM 140 11/05/2023 POTASSIUM 4.3 09/23/2024 POTASSIUM 4.0 05/25/2024 POTASSIUM 3.9 11/05/2023 GLUCOSE 90 09/23/2024 GLUCOSE 174 (H) 05/25/2024 GLUCOSE 101 09/19/2022 CHLORIDE 105 09/23/2024 CHLORIDE 104 11/05/2023 CO2 26 09/23/2024 CO2 31.1 11/05/2023 BUN 21 09/23/2024 BUN 17.0 11/05/2023 CREATSERUM 1.21 09/23/2024 CREATSERUM 1.24 06/12/2024 CREATSERUM 1.10 11/05/2023 TSH 2.789 09/23/2024 TSH 1.108 12/10/2018 Lab Results Component Value Date WBC 7.37 09/23/2024 WBC 6.66 12/10/2018 HGB 11.2 (L) 09/23/2024 HGB 13.4 12/10/2018 HCT 34.8 (L) 09/23/2024 HCT 40.7 12/10/2018 PLATELET 212 09/23/2024 PLATELET 220 12/10/2018 MCV 93.3 09/23/2024 MCV 86.6 12/10/2018 Lab Results Component Value Date BNP 871 (H) 09/22/2024 BNP 434 (H) 07/21/2024 BNP 347 (H) 07/09/2024 BNP 1,159 11/05/2023 Echocardiogram (09/23/24): - Left ventricle is mildly enlarged with severe global hypokinesis. Ejection fraction 25-30%. - Right ventricle is enlarged with moderately reduced function. Device wire present. - Moderate biatrial dilation. - No hemodynamically significant valvular disease. - RVSP could not be estimated. Associated attestation - Vangie Cruz MD - 09/24/2024 2:28 PM EDT Attending Physician Note I have personally interviewed and examined this patient with the IM Resident on 09/23/2024. I have reviewed the history and examination and edited these in the note above. I agree with the medical decision and components of the note as edited by me. Patient is alert and oriented and VS stable. He has frequent uniform PVCs and underpacing of GENERAL SCRAP WORKER therapy with acute and chronic systolic heart failure. PVC ablation was attempted previously and complicated by cardiac perforation in [place]. Concern also that the PVC was epicardial in location. Despite trials of AAD therapy, he has had continued frequent PVCS/NSVT. Today, we discussed repeat EPS/RFA attempt with endocardial and epicardial approach once further stablized from acute CHF. The procedure was explained with indication, risks and benefits and he consents to proceed. We will plan to increase beta ashley therapy presently as well. Vangie Cruz MD, [facility], [facility] Gail Schofield Chair in Cardiac Electrophysiology Professor of Clinical Medicine Associated Order(s): IP CONSULT TO CARDIOLOGY - HEART FAILURE HEART FAILURE INITIAL CONSULTATION NOTE: Patient Name: Tania Venegas Date of Consult: 09/23/2024 Reason for Consultation: Acute on Chronic Systolic Heart Failure Requesting Provider: Taj Carter MD on [facility] Service CURRENT HOSPITALIZATION/ LOS: [facility]: [facility] HISTORY OF PRESENT ILLNESS: It was my pleasure to see Mr. Tania Venegas in consultation at the [facility] on 09/23/2024 for evaluation of his Acute on Chronic Systolic Heart Failrue. He is a pleasant 59 y.o. 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 Hurtado and Dain Marmolejo, ADDRESSING MACHINE OPERATOR for Heart Failure care as outpatient. Patient has noted increase fatigue with exertion over the past several weeks progressively worse. Device interrogation demonstrated frequent NSVT. 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 Vasodilator: Not needed ICD / GENERAL SCRAP WORKER: BiV ICD - 59% GENERAL SCRAP WORKER Pacing, 36% RA Pacing Heart Failure Research Opportunities - Does not meet criteria for inpatient clinical trials Heart Healthy diet with 4 gram Na, 2L fluid restriction Weigh daily Strict I/O Paroxysmal Atrial Fibrillation/Flutter, Paroxysmal VT - s/p sympathectomy 05/25/24 - Remains on Amiodarone, metoprolol and Warfarin - 0% AT/AF burden documented on device check on 09/22/24 - Frequent NSVT noted - EP Consulted - scheduled for Afib ablation [id number] Score for Atrial Fibrillation Stroke Risk Age in Years: <65 Sex: Male CHF History: Yes Hypertension History: Yes Stroke/TIA/Thromboembolism History: No Vascular Disease History: Yes Diabetes History: No [id number] Score: 3 Lab Results Component Value Date INR 1.9 (H) 09/22/2024 INR 3.4 (H) 06/12/2024 INR 1.1 05/25/2024 Non Obstructive Sun'Aq Coronary Artery Disease - No active Angina, Normal Trop, No Ischemic EKC changes Lab Results Component Value Date HSTROP 21 09/22/2024 Statin - Crestor 10mg daily Anti Anginal - Torpol XL 50/25 Anti Platelet - AA 81mg daily Hypertensive Heart Disease - Controlled on current therapy - observe with GDMT optimization BP Readings from Last 3 Encounters: 09/23/24 114/77 07/21/24 110/70 07/09/24 134/82 Obesity Body mass index is 33.89 kg/m . Hyperlipidemia - continue with Crestor 10mg daily Lab Results Component Value Date CHOLESTEROL 187 04/09/2024 TRIG 294 (H) 04/09/2024 HDL 36 (L) 04/09/2024 LDLCALC 92 04/09/2024 Complexity. Obesity Body mass index is 33.89 kg/m . - Follow with PCP for dietary and lifestyle modifications. Any conditions listed below are present on admission unless otherwise specified. .None 45 min spent with patient, reviewing pertinent information, and discussing plan of care with the multidisciplinary team. RECOMMENDATIONS: Resume Eplerenone therapy Continue IV Lasix 40mg BID Work up for sarcoidosis - No family history of early heart disease or . Please do not hesitate to contact us for any further questions regarding the care of this patient. Man Stock PA-C Heart Failure Consult Service [phone] / Pager #[phone] PAST MEDICAL AND SURGICAL HISTORY: Past Medical History: Diagnosis Date A-fib Arrhythmia Arthritis Atherosclerotic heart disease [place] coronary artery w/angina pectoris 04/10/2024 Bradycardia Carcinoma of colon Chest pain secondary to pericarditis CHF (congestive heart failure) Diastolic dysfunction HLD (hyperlipidemia) 05/25/2024 Hypertension Lymphoma Nonischemic congestive cardiomyopathy Pacemaker Restless legs Sleep apnea Systolic dysfunction Systolic heart failure s/p biventricular implantable cardioveter defibrillator placement Past Surgical History: Procedure Laterality Date SYMPATHECTOMY THORACIC ROBOTIC Bilateral 05/25/2024 Laterality: Bilateral; Surgeon: Prince Falk MD; Location: [facility] MAIN OR ATRIAL FIBRILLATION ABLATION N/A 07/19/2017 Laterality: N/A; Surgeon: Alexander Cox MD; Location: [facility] EP CHOLECYSTECTOMY COLECTOMY FOOT SURGERY Bilateral HIP REPLACEMENT Bilateral ICD PLACEMENT FAMILY HISTORY: Family History Problem Relation Age of Onset Other - Specify Mother Accident Colorectal Cancer Father Other - Specify Father COPD SOCIAL HISTORY: Social History Tobacco Use Smoking status: Never Smokeless tobacco: Never Vaping Use Vaping status: Never Used Substance Use Topics Alcohol use: Yes Comment: occasionally few beers-not weekly Drug use: Never MEDICATIONS: CURRENT MEDS: Scheduled Meds: AMIOdarone 200 mg Oral Daily furosemide 40 mg Intravenous Once Losartan 50 mg Oral Daily Metoprolol succinate 25 mg Oral QHS Metoprolol succinate 50 mg Oral QAM Rosuvastatin 10 mg Oral Daily Continuous Infusions: HOME MEDICATIONS: Medications Prior to Admission Medication Sig Dispense Refill Last Dose Acetaminophen 325 MG tablet Take 2 tablets by mouth every 4 hours as needed. Past Month AMIOdarone 200 MG tablet Take 1 tablet by mouth daily. 90 tablet 1 09/22/2024 aspirin 81 MG Chew Tab chewable tablet Chew 1 tablet daily. 30 tablet 0 Past Month eplerenone 25 MG tablet Take 1 tablet by mouth daily. 90 tablet 3 09/21/2024 Losartan 50 MG tablet Take 1 tablet by mouth daily. 30 tablet 3 09/22/2024 Metoprolol succinate 50 MG tablet XL 50mg QAM + 25mg QPM 135 tablet 2 09/22/2024 rosuvastatin 10 MG tablet Take 1 tablet by mouth daily. Past Month Slow Magnesium/Calcium 70-[address] Take 1 tablet by mouth daily. 09/22/2024 warfarin 5 MG tablet Take 0.5-1 tablets by mouth every evening at 6 PM. Alternate between 2.5 mg and 5 mg daily. INR managed at [facility] 09/21/2024 Amoxicillin 500 MG capsule Take 4 capsules by mouth. 1 hour prior to dental appointments Docusate 100 MG capsule Take 1 capsule by mouth 2 times daily. furOSEmide 40 MG tablet Take 1 tablet by mouth daily as needed. ALLERGIES: Allergies Allergen Reactions Seasonal [*Seasonal] hayfever REVIEW OF SYSTEMS: Review of Systems Constitutional: Positive for malaise/fatigue and weight gain. Cardiovascular: Positive for dyspnea on exertion and irregular heartbeat. Respiratory: Positive for shortness of breath. Gastrointestinal: Negative. Genitourinary: Negative. Neurological: Negative. Psychiatric/Behavioral: Negative. PHYSICAL EXAM: Vital Signs (24hrs): Temp: [97.8 F (36.6 C)-98.7 F (37.1 C)] 97.9 F (36.6 C) Pulse (Heart Rate): [67-96] 79 Resp Rate: [15-20] 16 BP: (86-122)/(62-90) 114/77 O2 Sat (%): [95 %-97 %] 97 % Weight: [116.5 kg (256 lb 12.8 oz)-121.2 kg (267 lb 4.8 oz)] 116.5 kg (256 lb 13.4 oz) Current Weight Weight: 116.5 kg (256 lb 13.4 oz) Fluid Management (24hrs): Intake/Output last 3 shifts: I/O last 3 completed shifts: In: 615 [P.O.:615] Out: 3225 [Urine:3225] Physical Exam Constitutional: He appears chronically ill. Neck: JVD present. Cardiovascular: S1 normal and S2 normal. An irregularly irregular rhythm present. Pulses: Radial pulses are 1+ on the right side and 1+ on the left side. Pulmonary/Chest: He has no wheezes. He has no rales. Abdominal: Soft. Bowel sounds are normal. He exhibits no distension. There is no abdominal tenderness. Musculoskeletal: General: Edema (3+) present. Neurological: He is alert and oriented to person, place, and time. Skin: Skin is warm and dry. LABORATORY / PROCEDURES EKG: V Paced, RBBB underlying Atrial Fibrillation TTE: 09/23/24 - Left ventricle is mildly enlarged with severe global hypokinesis. Ejection fraction 25-30%. - Right ventricle is enlarged with moderately reduced function. Device wire present. - Moderate biatrial dilation. - No hemodynamically significant valvular disease. - RVSP could not be estimated. Ischemic Eval: 04/10/24 Coronary angiography: The left main is angiographically normal.. The left anterior descending (LAD) has moderate non-obstructive disease throughout with a 50% proximal LAD lesion. The left circumflex (LCx) has mild disease throughout. The right coronary artery is has mild disease throughout with a 40% mid RCA lesion and a 40% distal RCA lesion. Right dominant coronary arterial circulation. Cardiac MRI: 03/2024 Severe biventricular systolic dysfunction with predominantly non-ischemic fibrosis. Findings are non-specific, but fibrosis pattern can be seen in prior myocarditis or cardiac sarcoidosis. Labs: Lab Results Component Value Date WBC 7.37 09/23/2024 HGB 11.2 (L) 09/23/2024 HCT 34.8 (L) 09/23/2024 PLATELET 212 09/23/2024 MCV 93.3 09/23/2024 Lab Results Component Value Date SODIUM 141 09/23/2024 POTASSIUM 4.3 09/23/2024 CHLORIDE 105 09/23/2024 CO2 26 09/23/2024 BUN 21 09/23/2024 CREATSERUM 1.21 09/23/2024 GLUCOSE 90 09/23/2024 Lab Results Component Value Date ALT 9 (L) 07/09/2024 AST 20 07/09/2024 ALKPHOS 78 07/09/2024 BILITOTAL 0.5 04/09/2024 BILIDIRECT 0.1 04/09/2024 Ptt/Pt/Inr: 33.8/22.0/1.9 (09/22 161) Cholesterol Date Value Ref Range Status 04/09/2024 187 <200 mg/dL Final Comment: [<200 mg/dL: Desirable] [200-239 mg/dL: Borderline High] [>239 mg/dL: High] HDL Cholesterol Date Value Ref Range Status 04/09/2024 36 (L) >=40 mg/dL Final Comment: [<40 mg/dL: Low (High Risk)] [>59 mg/dL: High (Low Risk)] Triglycerides Date Value Ref Range Status 04/09/2024 294 (H) <150 mg/dL Final Comment: [<150 mg/dL: Desirable] [150-199 mg/dL: Borderline] [200-499 mg/dL: High] [>500 mg/dL: Very High] Lab Results Component Value Date HSTROP 21 09/22/2024 Lab Results Component Value Date BNP 871 (H) 09/22/2024 BNP 434 (H) 07/21/2024 BNP 347 (H) 07/09/2024 Lab Results Component Value Date TSH 2.789 09/23/2024 T4FREE 1.43 01/09/2024 Lab Results Component Value Date IRON 87 04/09/2024 FERRITIN 36.2 04/09/2024 Man (ANH) Montrell, MS, SUKH, KALYAN HF2/Advanced Heart Failure Pager ID: [phone] documented in this encounter [facility] 09-23-2024 Hospital Discharge instructions Nabor Gordon MD - 09/23/2024 11:31 AM EDT Images from the original note were not included. Discharge instructions from your inpatient doctor, Nabor Gordon MD You were admitted to the hospital for frequent fast heart rate and ventricular contractions. You also had fluid overload (heart failure) While you were here, you underwent an ablation to decrease the extra heart beats. We also took fluid off of you with an IV diuretic. After discharge, please do the following: I recommend you take lasix every day to keep fluid off Please take lovenox shots until your INR is between 2-3 Please follow up closely with the heart failure and EP team See below for more heart failure care instructions 1. Continue to monitor weight first thing each morning. 2. Report to the [facility] Option #2 any significant weight change. Remember that weight change of 2-3 lbs. over 2-3 days is significant and likely represents changes in fluid status. 3. If you are taking a diuretic (such as lasix, demadex, bumex), you should also restrict all sodium intake to 2000 milligrams (2 grams) a day. Depending on your status, you may also be asked to restrict fluid intake. If uncertain, ask the nurse or physician. [...] be important. Also report any changes in your medications including over the counter medications. 6. DO NOT take NSAID's for pain (i.e, Advil, Motrin, ibuprofen, and many more) since these may cause serious problems in those with a history of CHF. If uncertain about the medication, please call us. 7. If you have new significant or ongoing diarrhea or vomiting, please hold your diuretic (examples: furosemide/Lasix, torsemide/Demadex, bumetanide/Bumex) and call our clinic for further instructions. Taking a diuretic (water pill) with these symptoms can worsen dehydration. Heart Failure Patient Education Resources: [place] Association of Heart Failure Nurses (AAHFN) www.aahfn.org [place] Heart Association Heart.org/workbooks Heart Failure Society of [place] (HFSA) www.hfsa.org Call your Primary Care Doctor if: - You have sustained fever over 100.4 F. - You have shaking chills. - You have uncontrolled nausea, vomiting, or diarrhea. - You have watery diarrhea, stomach cramps, or nausea that doesn't go away. - You have questions about which medications you should be taking. - You have any other symptoms concerning to you. Call 911 or go to your local emergency room if: - You have chest pain. - You feel like you can t catch your breath. - You have loss of consciousness. - You feel confused or very sleepy. - You have new numbness or weakness on one side of your body. - You faint or pass out without even knowing it s about to happen. - For any other life threatening emergencies. - You have a concern and cannot reach your doctor. Please review the first page of your after-visit summary for a detailed list of medication changes, follow-up instructions and scheduled appointments. If you have any questions after your discharge, please call our office at [phone] and one of our Hospitalist Nurses will call you back. Nabor Gordon MD Division of Hospital Medicine [phone] You qualify for the [facility] Transitions of Care, Heart Failure (HF) Care Navigation Program. This may include a telehealth visit with a pharmacist, nurse navigation phone calls, scheduling assistance as it pertains to your heart failure follow up, and psychosocial support for up to 30 days post-discharge, or until you are seen in your hospital follow up clinic appointment by the provider managing your heart failure. If you were scheduled for a pharmacy transitions telehealth visit this will be your initial call with the care navigation program. If you were not scheduled for a pharmacy visit, one of our nurse navigators will be contacting you in the first week after you are discharged from the hospital for your initial encounter. If you have questions pertaining to your hospital heart failure care plan, or need scheduling assistance for your pharmacy or heart failure follow up appointment, please contact the heart transitions of care team: [phone]. - Opt 1: Scheduling your heart failure hospital follow up or pharmacy transitions visit - Opt 2: Non-urgent clinical questions pertaining to your heart failure hospital care plan - Opt 3: Social Work needs Please note, program hours are Saturday - Saturday 8am - 4pm ET. Please allow up to 2 business days for return call. For other heart scheduling needs please contact [phone], OPT 1. For urgent medical needs during evening, weekend or holiday's please call [phone] Ask the cementing bulk material operator to page the on-call doctor for the service that was responsible for your care while you were in the hospital. For medical emergencies please dial 911 For more information about Heart Failure please visit this link for an online interactive workbook or QR code below: http://[email or web address].com/aha-heart failure/ Patient Experience Survey Reminder You may receive a survey in the mail within a few weeks regarding your hospitalization. This helps us to improve the care and services we provide at [facility]. We truly appreciate you taking the time to fill this out. We particularly welcome any specific comments you may have (good or bad!) regarding your experience at [facility] so that we may use them to continue to strive towards excellence for our patients. documented in this encounter [facility] 09-23-2024 Consult note Associated Order (s): IP CONSULT TO CARDIOLOGY - HEART FAILURE HEART FAILURE INITIAL CONSULTATION NOTE: Patient Name: Tania Venegas Date of Consult: 09/23/2024 Reason for Consultation: Acute on Chronic Systolic Heart Failure Requesting Provider: Taj Carter MD on [facility] Service CURRENT HOSPITALIZATION/ LOS: Admit Date: [facility] HISTORY OF PRESENT ILLNESS: It was my pleasure to see Mr. Tania Venegas in consultation at the [facility] on 09/23/2024 for evaluation of his Acute on Chronic Systolic Heart Failrue. He is a pleasant 59 y.o. 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 Hurtado and Dain Marmolejo, ADDRESSING MACHINE OPERATOR for Heart Failure care as outpatient. Patient has noted increase fatigue with exertion over the past several weeks progressively worse. Device interrogation demonstrated frequent NSVT. 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 Vasodilator: Not needed ICD / GENERAL SCRAP WORKER: BiV ICD - 59% GENERAL SCRAP WORKER Pacing, 36% RA Pacing Heart Failure Research Opportunities - Does not meet criteria for inpatient clinical trials Heart Healthy diet with 4 gram Na, 2L fluid restriction Weigh daily Strict I/O Paroxysmal Atrial Fibrillation/Flutter, Paroxysmal VT - s/p sympathectomy 05/25/24 - Remains on Amiodarone, metoprolol and Warfarin - 0% AT/AF burden documented on device check on 09/22/24 - Frequent NSVT noted - EP Consulted - scheduled for Afib ablation [id number] Score for Atrial Fibrillation Stroke Risk Age in Years: <65 Sex: Male CHF History: Yes Hypertension History: Yes Stroke/TIA/Thromboembolism History: No Vascular Disease History: Yes Diabetes History: No [id number] Score: 3 Lab Results Component Value Date INR 1.9 (H) 09/22/2024 INR 3.4 (H) 06/12/2024 INR 1.1 05/25/2024 Non Obstructive Sun'Aq Coronary Artery Disease - No active Angina, Normal Trop, No Ischemic EKC changes Lab Results Component Value Date HSTROP 21 09/22/2024 Statin - Crestor 10mg daily Anti Anginal - Torpol XL 50/25 Anti Platelet - AA 81mg daily Hypertensive Heart Disease - Controlled on current therapy - observe with GDMT optimization BP Readings from Last 3 Encounters: 09/23/24 114/77 07/21/24 110/70 07/09/24 134/82 Obesity Body mass index is 33.89 kg/m . Hyperlipidemia - continue with Crestor 10mg daily Lab Results Component Value Date CHOLESTEROL 187 04/09/2024 TRIG 294 (H) 04/09/2024 HDL 36 (L) 04/09/2024 LDLCALC 92 04/09/2024 Complexity. Obesity Body mass index is 33.89 kg/m . - Follow with PCP for dietary and lifestyle modifications. Any conditions listed below are present on admission unless otherwise specified. .None 45 min spent with patient, reviewing pertinent information, and discussing plan of care with the multidisciplinary team. RECOMMENDATIONS: Resume Eplerenone therapy Continue IV Lasix 40mg BID Work up for sarcoidosis - No family history of early heart disease or . Please do not hesitate to contact us for any further questions regarding the care of this patient. 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[place] coronary artery w/angina pectoris 04/10/2024 Bradycardia Carcinoma of colon Chest pain secondary to pericarditis CHF (congestive heart failure) Diastolic dysfunction HLD (hyperlipidemia) 05/25/2024 Hypertension Lymphoma Nonischemic congestive cardiomyopathy Pacemaker Restless legs Sleep apnea Systolic dysfunction Systolic heart failure s/p biventricular implantable cardioveter defibrillator placement Past Surgical History: Procedure Laterality Date SYMPATHECTOMY THORACIC ROBOTIC Bilateral 05/25/2024 Laterality: Bilateral; Surgeon: Prince Falk MD; Location: [facility] MAIN OR ATRIAL FIBRILLATION ABLATION N/A 07/19/2017 Laterality: N/A; Surgeon: Alexander Cox MD; Location: [facility] EP CHOLECYSTECTOMY COLECTOMY FOOT SURGERY Bilateral HIP REPLACEMENT Bilateral ICD PLACEMENT FAMILY HISTORY: Family History Problem Relation Age of Onset Other - Specify Mother Accident Colorectal Cancer Father Other - Specify Father COPD SOCIAL HISTORY: Social History Tobacco Use Smoking status: Never Smokeless tobacco: Never Vaping Use Vaping status: Never Used Substance Use Topics Alcohol use: Yes Comment: occasionally few beers-not weekly Drug use: Never MEDICATIONS: CURRENT MEDS: Scheduled Meds: AMIOdarone 200 mg Oral Daily furosemide 40 mg Intravenous Once Losartan 50 mg Oral Daily Metoprolol succinate 25 mg Oral QHS Metoprolol succinate 50 mg Oral QAM Rosuvastatin 10 mg Oral Daily Continuous Infusions: HOME MEDICATIONS: Medications Prior to Admission Medication Sig Dispense Refill Last Dose Acetaminophen 325 MG tablet Take 2 tablets by mouth every 4 hours as needed. Past Month AMIOdarone 200 MG tablet Take 1 tablet by mouth daily. 90 tablet 1 09/22/2024 aspirin 81 MG Chew Tab chewable tablet Chew 1 tablet daily. 30 tablet 0 Past Month eplerenone 25 MG tablet Take 1 tablet by mouth daily. 90 tablet 3 09/21/2024 Losartan 50 MG tablet Take 1 tablet by mouth daily. 30 tablet 3 09/22/2024 Metoprolol succinate 50 MG tablet XL 50mg QAM + 25mg QPM 135 tablet 2 09/22/2024 rosuvastatin 10 MG tablet Take 1 tablet by mouth daily. Past Month Slow Magnesium/Calcium 70-[address] Take 1 tablet by mouth daily. 09/22/2024 warfarin 5 MG tablet Take 0.5-1 tablets by mouth every evening at 6 PM. Alternate between 2.5 mg and 5 mg daily. INR managed at [facility] 09/21/2024 Amoxicillin 500 MG capsule Take 4 capsules by mouth. 1 hour prior to dental appointments Docusate 100 MG capsule Take 1 capsule by mouth 2 times daily. furOSEmide 40 MG tablet Take 1 tablet by mouth daily as needed. ALLERGIES: Allergies Allergen Reactions Seasonal [*Seasonal] hayfever REVIEW OF SYSTEMS: Review of Systems Constitutional: Positive for malaise/fatigue and weight gain. Cardiovascular: Positive for dyspnea on exertion and irregular heartbeat. Respiratory: Positive for shortness of breath. Gastrointestinal: Negative. Genitourinary: Negative. Neurological: Negative. Psychiatric/Behavioral: Negative. PHYSICAL EXAM: Vital Signs (24hrs): Temp: [97.8 F (36.6 C)-98.7 F (37.1 C)] 97.9 F (36.6 C) Pulse (Heart Rate): [67-96] 79 Resp Rate: [15-20] 16 BP: (86-122)/(62-90) 114/77 O2 Sat (%): [95 %-97 %] 97 % Weight: [116.5 kg (256 lb 12.8 oz)-121.2 kg (267 lb 4.8 oz)] 116.5 kg (256 lb 13.4 oz) Current Weight Weight: 116.5 kg (256 lb 13.4 oz) Fluid Management (24hrs): Intake/Output last 3 shifts: I/O last 3 completed shifts: In: 615 [P.O.:615] Out: 3225 [Urine:3225] Physical Exam Constitutional: He appears chronically ill. Neck: JVD present. Cardiovascular: S1 normal and S2 normal. An irregularly irregular rhythm present. Pulses: Radial pulses are 1+ on the right side and 1+ on the left side. Pulmonary/Chest: He has no wheezes. He has no rales. Abdominal: Soft. Bowel sounds are normal. He exhibits no distension. There is no abdominal tenderness. Musculoskeletal: General: Edema (3+) present. Neurological: He is alert and oriented to person, place, and time. Skin: Skin is warm and dry. LABORATORY / PROCEDURES EKG: V Paced, RBBB underlying Atrial Fibrillation TTE: 09/23/24 - Left ventricle is mildly enlarged with severe global hypokinesis. Ejection fraction 25-30%. - Right ventricle is enlarged with moderately reduced function. Device wire present. - Moderate biatrial dilation. - No hemodynamically significant valvular disease. - RVSP could not be estimated. Ischemic Eval: 04/10/24 Coronary angiography: The left main is angiographically normal.. The left anterior descending (LAD) has moderate non-obstructive disease throughout with a 50% proximal LAD lesion. The left circumflex (LCx) has mild disease throughout. The right coronary artery is has mild disease throughout with a 40% mid RCA lesion and a 40% distal RCA lesion. Right dominant coronary arterial circulation. Cardiac MRI: 03/2024 Severe biventricular systolic dysfunction with predominantly non-ischemic fibrosis. Findings are non-specific, but fibrosis pattern can be seen in prior myocarditis or cardiac sarcoidosis. Labs: Lab Results Component Value Date WBC 7.37 09/23/2024 HGB 11.2 (L) 09/23/2024 HCT 34.8 (L) 09/23/2024 PLATELET 212 09/23/2024 MCV 93.3 09/23/2024 Lab Results Component Value Date SODIUM 141 09/23/2024 POTASSIUM 4.3 09/23/2024 CHLORIDE 105 09/23/2024 CO2 26 09/23/2024 BUN 21 09/23/2024 CREATSERUM 1.21 09/23/2024 GLUCOSE 90 09/23/2024 Lab Results Component Value Date ALT 9 (L) 07/09/2024 AST 20 07/09/2024 ALKPHOS 78 07/09/2024 BILITOTAL 0.5 04/09/2024 BILIDIRECT 0.1 04/09/2024 Ptt/Pt/Inr: 33.8/22.0/1.9 (09/22 161) Cholesterol Date Value Ref Range Status 04/09/2024 187 <200 mg/dL Final Comment: [<200 mg/dL: Desirable] [200-239 mg/dL: Borderline High] [>239 mg/dL: High] HDL Cholesterol Date Value Ref Range Status 04/09/2024 36 (L) >=40 mg/dL Final Comment: [<40 mg/dL: Low (High Risk)] [>59 mg/dL: High (Low Risk)] Triglycerides Date Value Ref Range Status 04/09/2024 294 (H) <150 mg/dL Final Comment: [<150 mg/dL: Desirable] [150-199 mg/dL: Borderline] [200-499 mg/dL: High] [>500 mg/dL: Very High] Lab Results Component Value Date HSTROP 21 09/22/2024 Lab Results Component Value Date BNP 871 (H) 09/22/2024 BNP 434 (H) 07/21/2024 BNP 347 (H) 07/09/2024 Lab Results Component Value Date TSH 2.789 09/23/2024 T4FREE 1.43 01/09/2024 Lab Results Component Value Date IRON 87 04/09/2024 FERRITIN 36.2 04/09/2024 Man (ANH) Montrell, MS, SUKH, KALYAN HF2/Advanced Heart Failure Pager ID: [phone] [facility] 09-22-2024 Plan of care note Problem: Adult Inpatient Plan of Care Goal: Plan of Care Review Outcome: Progressing Flowsheets (Taken 09/22/20241816) Progress: (New Admission) -- Plan of Care Reviewed With: patient spouse Note: Patient admitted to unit from home. RN reviewed Fall Prevention Hospital Policy. Call light in reach & oriented to use. Patient updated re: plan of care- vital signs every 4 hours per physician order, will be monitoring intake and output q8h. Nursing will be assessing patient's pain q4h and medicate prn per physician order. Daily weights to be obtained early am. Labs to be completed per physician order. Nursing staff will perform hourly rounding per hospital protocol. Daily Joint rounds to be completed with patient, physician & nurse @ bedside during hospital stay. Plan of care reviewed- Echo has been ordered; pt will be NPO after midnight for possible EP procedure. HF has been consulted. Patient was seen by PCP earlier today. Per H&P Physician note- Patient had an EKG done which showed patient was in AFIb. Patient called EP office and had device interrogated- patient w/ frequent NSVT below detection on presenting rhythm. As a result, Patient was directly admitted for EP evaluation to [facility]. EP team has been consulted to provide recommendations. Patient denies any questions or concerns. RN will continue to assist patient as needed. Goal: Patient-Specific Goal (Individualized) Outcome: Progressing Flowsheets (Taken 09/22/2024 1817) Individualized Care Needs: denies Anxieties, Fears or Concerns: denies Patient/Family-Specific Goals (Include Timeframe): denies Goal: Absence of Hospital-Acquired Illness or Injury Outcome: Progressing Intervention: Identify and Manage Fall Risk Flowsheets (Taken 09/22/2024 1800 by POLLY Hurt) Safety Promotion/Fall Prevention: safety round/check completed room organization consistent nonskid shoes/slippers when out of bed fall prevention program maintained clutter-free environment maintained assistive device/personal items within reach Intervention: Prevent Skin Injury Flowsheets Taken 09/22/2024 1817 by Trini Muse RN Body Position: up in chair Device Skin Pressure Protection: adhesive use limited Taken 09/22/2024 1800 by POLLY Hurt Positioning Assistance Provided: positioned/repositioned independently Taken 09/22/2024 1620 by Trini Muse RN Skin Protection: protective footwear used Intervention: Prevent and Manage VTE (Venous Thromboembolism) Risk Flowsheets (Taken 09/22/2024 1620) VTE Prevention/Management: (coumadin po per physician order; last dose yesterday evening.) N/A - Pharmacologic Intervention (No Mechanical Prophylaxis - Therapeutic Anticoagulation) Intervention: Prevent Infection Flowsheets (Taken 09/22/2024 181) Infection Prevention: hand hygiene promoted rest/sleep promoted single patient room provided Goal: Optimal Comfort and Wellbeing Outcome: Progressing Note: Monitor pain, administer pain medications as ordered, and reassess an hour after intervention. Patient denies any complaints of pain on admission Goal: Readiness for Transition of Care Outcome: Progressing Problem: Dysrhythmia Goal: Normalized Cardiac Rhythm Outcome: Progressing Note: EP consulted per physician order. Continuous cardiac monitoring as ordered. ECGs obtained per protocol. Electrolytes replaced with prn orders when appropriate. Antiarrhythmic amiodarone will be given as scheduled per physician order which is an home medication. [facility] 09-22-2024 Nurse Note On admission to [address] [place] [address]- direct admit from home a dual RN initial assessment of skin condition was performed by RADHA Feliz and ANH Leal RN Skin Assessment: Skin intact; however, scars and one tattoo present Pierce Score: 22 [facility] 09-22-2024 Note Acute Coronary Syndr ome (ACS): Initial Evaluation and Management: [email or web address] [facility] 09-22-2024 History and physical note Hospital Medicine Admission History & Physical Patient: Tania Venegas, : 1965, Date of face to face patient encounter: 09/22/2024 Impression / Plan Tania Venegas is a 58 y.o. 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 NSVT - s/p sympathectomy Atrial fibrillation - s/p multiple ablations. 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 Repeat TTE. -IV lasix -Continue metoprolol -Will hold losartan, eplerenone given soft BP -Fluid restriction, I&Os -CHF team consulted per EP recommendation CAD - [facility] (04/17) w/ moderate non-obstructive disease in LAD w/ 50% LAD lesion -Continue statin, BB -Consider resuming ASA HTN - BP meds as above HLD - statin BRANNON - cpap Problem list reviewed at admission. Complexity. Obesity Body mass index is 35.27 kg/m . - Follow with PCP for dietary and lifestyle modifications. Any conditions listed below are present on admission unless otherwise specified. . DVT prophylaxis with holding for procedure Anticipated Disposition: home Code status is full Chief Complaint SOB History of Presenting Illness Tania Venegas is a 59 y.o. male with a past medical history of HFrEF/NICM, CAD, bradycardia s/p [employer] SCRAP WORKER-D, atrial fibrillation s/p multiple ablations, non-hodgkin's lymphoma, HTN, HLD, BRANNON who presents as a direct admission due concerns for NSVT. He states that he has been feeling crummy for some time now. Mostly short of breath and is getting winded easily. Notes some palpitations and lightheadedness in addition to lower extremity edema. He denies chest pain, infectious symptoms, neuro symptoms, orthopnea, PND. He was seen by PCP today. Had an EKG done showed he was in AFIb. HR 117. BP was 108/60 sitting and 80/50 standing. He called EP office and had remove interrogation w/ frequent NSVT below detection on presenting rhythm. As a result, he was directly admitted for EP evaluation. 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 04/10/2024 Bradycardia Carcinoma of colon Chest pain secondary to pericarditis CHF (congestive heart failure) Diastolic dysfunction HLD (hyperlipidemia) 05/25/2024 Hypertension Lymphoma Nonischemic congestive cardiomyopathy Pacemaker Restless legs Sleep apnea Systolic dysfunction Systolic heart failure s/p biventricular implantable cardioveter defibrillator placement Past Surgical History: Procedure Laterality Date SYMPATHECTOMY THORACIC ROBOTIC Bilateral 05/25/2024 Laterality: Bilateral; Surgeon: Prince Falk MD; Location: [facility] MA[facility] OR ATRIAL FIBRILLATION ABLATION N/A 07/19/2017 Laterality: N/A; Surgeon: Alexander Cox MD; Location: [facility] CHOLECYSTECTOMY COLECTOMY FOOT SURGERY Bilateral HIP REPLACEMENT Bilateral ICD PLACEMENT Social History he reports that he has never smoked. He has never used smokeless tobacco. He reports current alcohol use. He reports that he does not use drugs. Family History family history includes Colorectal Cancer in his father; Other - Specify in his father and mother. Medications / Allergies Prior to Admission Medications Prescriptions AMIOdarone 200 MG tablet Sig: Take 1 tablet by mouth daily. Acetaminophen 325 MG tablet Sig: Take 2 tablets by mouth every 4 hours as needed. Docusate 100 MG capsule Sig: Take 1 capsule by mouth 2 times daily. Losartan 50 MG tablet Sig: Take 1 tablet by mouth daily. Metoprolol succinate 50 MG tablet XL Simg QAM + 25mg QPM Slow Magnesium/Calcium 70-[address] Sig: Take 1 tablet by mouth daily. aspirin 81 MG Chew Tab chewable tablet Sig: Chew 1 tablet daily. eplerenone 25 MG tablet Sig: Take 1 tablet by mouth daily. rosuvastatin 10 MG tablet Sig: Take 1 tablet by mouth daily. warfarin 5 MG tablet Sig: Take 1 tablet by mouth every evening at 6 PM. INR managed at [facility] 5mg daily except for Saturday and 7.5mg daily Facility-Administered Medications: None Allergies Allergen Reactions Seasonal [*Seasonal] hayfever Objective Findings Wt 121.2 kg (267 lb 4.8 oz) BMI 35.27 kg/m Smoking Status Never Physical Exam Gen: Alert, Awake, NAD Eyes: PERRLA, EOMI, no icterus ENT: MMM, trachea midline Resp: CTA, normal respiratory effort Cardio: RRR, normal S1, S2, no M/R/G. 2+ PARVIZ to below knees. GI: S/NT/ND, NABS MS: No joint effusions or erythema Skin: No jaundice or rash Neuro: floorworker 3-7, 9-11 intact and equal. Strength grossly equal in muscle groups of the bilateral UEs and LEs. Psych: Ox3, appropriate affect and cognition Data Review Admission labs pending [facility] 09-22-2024 History and physical note Hospital Medicine Admission History & Physical Patient: Tania Cardoza Rubi, : 1965, Date of face to face patient encounter: 09/22/2024 Impression / Plan Tania Venegas is a 58 y.o. 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 NSVT - s/p sympathectomy Atrial fibrillation - s/p multiple ablations. 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 Repeat TTE. -IV lasix -Continue metoprolol -Will hold losartan, eplerenone given soft BP -Fluid restriction, I&Os -CHF team consulted per EP recommendation CAD - [facility] (04/17) w/ moderate non-obstructive disease in LAD w/ 50% LAD lesion -Continue statin, BB -Consider resuming ASA HTN - BP meds as above HLD - statin BRANNON - cpap Problem list reviewed at admission. Complexity. Obesity Body mass index is 35.27 kg/m . - Follow with PCP for dietary and lifestyle modifications. Any conditions listed below are present on admission unless otherwise specified. . DVT prophylaxis with holding for procedure Anticipated Disposition: home Code status is full Chief Complaint SOB History of Presenting Illness Tania Venegas is a 59 y.o. male with a past medical history of HFrEF/NICM, CAD, bradycardia s/p GENER[employer] SCRAP WORKER-D, atrial fibrillation s/p multiple ablations, non-hodgkin's lymphoma, HTN, HLD, BRANNON who presents as a direct admission due concerns for NSVT. He states that he has been feeling crummy for some time now. Mostly short of breath and is getting winded easily. Notes some palpitations and lightheadedness in addition to lower extremity edema. He denies chest pain, infectious symptoms, neuro symptoms, orthopnea, PND. He was seen by PCP today. Had an EKG done showed he was in AFIb. HR 117. BP was 108/60 sitting and 80/50 standing. He called EP office and had remove interrogation w/ frequent NSVT below detection on presenting rhythm. As a result, he was directly admitted for EP evaluation. 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 04/10/2024 Bradycardia Carcinoma of colon Chest pain secondary to pericarditis CHF (congestive heart failure) Diastolic dysfunction HLD (hyperlipidemia) 05/25/2024 Hypertension Lymphoma Nonischemic congestive cardiomyopathy Pacemaker Restless legs Sleep apnea Systolic dysfunction Systolic heart failure s/p biventricular implantable cardioveter defibrillator placement Past Surgical History: Procedure Laterality Date SYMPATHECTOMY THORACIC ROBOTIC Bilateral 05/25/2024 Laterality: Bilateral; Surgeon: Prince Falk MD; Location: [facility] MAIN OR ATRIAL FIBRILLATION ABLATION N/A 07/19/2017 Laterality: N/A; Surgeon: Alexander Cox MD; Location: [facility] CHOLECYSTECTOMY COLECTOMY FOOT SURGERY Bilateral HIP REPLACEMENT Bilateral ICD PLACEMENT Social History he reports that he has never smoked. He has never used smokeless tobacco. He reports current alcohol use. He reports that he does not use drugs. Family History family history includes Colorectal Cancer in his father; Other - Specify in his father and mother. Medications / Allergies Prior to Admission Medications Prescriptions AMIOdarone 200 MG tablet Sig: Take 1 tablet by mouth daily. Acetaminophen 325 MG tablet Sig: Take 2 tablets by mouth every 4 hours as needed. Docusate 100 MG capsule Sig: Take 1 capsule by mouth 2 times daily. Losartan 50 MG tablet Sig: Take 1 tablet by mouth daily. Metoprolol succinate 50 MG tablet XL Simg QAM + 25mg QPM Slow Magnesium/Calcium 70-[address] Sig: Take 1 tablet by mouth daily. aspirin 81 MG Chew Tab chewable tablet Sig: Chew 1 tablet daily. eplerenone 25 MG tablet Sig: Take 1 tablet by mouth daily. rosuvastatin 10 MG tablet Sig: Take 1 tablet by mouth daily. warfarin 5 MG tablet Sig: Take 1 tablet by mouth every evening at 6 PM. INR managed at [facility] 5mg daily except for Saturday and 7.5mg daily Facility-Administered Medications: None Allergies Allergen Reactions Seasonal [*Seasonal] hayfever Objective Findings Wt 121.2 kg (267 lb 4.8 oz) BMI 35.27 kg/m Smoking Status Never Physical Exam Gen: Alert, Awake, NAD Eyes: PERRLA, EOMI, no icterus ENT: MMM, trachea midline Resp: CTA, normal respiratory effort Cardio: RRR, normal S1, S2, no M/R/G. 2+ PARVIZ to below knees. GI: S/NT/ND, NABS MS: No joint effusions or erythema Skin: No jaundice or rash Neuro: floorworker 3-7, 9-11 intact and equal. Strength grossly equal in muscle groups of the bilateral UEs and LEs. Psych: Ox3, appropriate affect and cognition Data Review Admission labs pending documented in this encounter [facility] 08-10-2024 Telephone encounter Note Called patient to follow up on messages. Patient states BP has been averaging around 100/65 - no highs or lows . States he has taken extra lasix tablet a few times this week because he was noticing swelling, but that has mostly resolved today. Patient agrees to contact Dr aFlk re: symptoms and possible effects of sympathectomy, states he has felt off since procedure and thinks symptoms may be related as well. Declines appt at this time until he speaks with Dr Falk. Update: Patient spoke with Dr Falk's office. See 08/11 encounter. [facility] 08-10-2024 Miscellaneous Notes Called patient to follow up on messages. Patient states BP has been averaging around 100/65 - no highs or lows . States he has taken extra lasix tablet a few times this week because he was noticing swelling, but that has mostly resolved today. Patient agrees to contact Dr Falk re: symptoms and possible effects of sympathectomy, states he has felt off since procedure and thinks symptoms may be related as well. Declines appt at this time until he speaks with Dr Falk. Update: Patient spoke with Dr Falk's office. See 08/11 encounter. Images from the original note were not included. Patient also send Lucky Sorthart message with same (in 07/20 encounter): Tania Venegas to Topher Banuelos [facility] Ep Nurse Pool (supporting You) 08/10/24 7:53 AM I am still feeling light headed & have started sweating heavy on my sides & across chest and legs where i didnt before Including Dr Hurtado. Pt called to report an increase in perspiration not common for him. Asking if it could be related to his HF or his HF meds? Pt reports his weight and SOB are the same as when seen by CHF team end of Jun. PT sen by Dain Marmolejo [facility]- will route call to CHF team for review. documented in this encounter [facility] 08-10-2024 Telephone encounter Note Images from the original note were not included. Patient also send Lucky Sorthart message with same (in 07/20 encounter): Tania Venegas to Topher Banuelos [facility] Nurse Pool (supporting You) 08/10/24 7:53 AM I am still feeling light headed & have started sweating heavy on my sides & across chest and legs where i didnt before Including Dr Hurtado. [facility] 08-10-2024 Telephone encounter Note Pt called to report an increase in perspiration not common for him. Asking if it could be related to his HF or his HF meds? Pt reports his weight and SOB are the same as when seen by CHF team end of Jun. PT sen by Dain Marmolejo [facility]- will route call to CHF team for review. [facility] 07-21-2024 History of Present illness Narrative This Java Technical Architect verified the patients name and date of . CANDI documentation tool explained to patient. Patient accepted the use of CANDI documentation tool during today's visit. It is my pleasure to see your patient Tania Venegas , a 58 y.o. 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 He says he has been swollen and more sob and fatigued since his procedure, also lightheaded. ROS: See HPI for pertinent positives and negatives. All other systems reviewed and are negative. Current Outpatient Medications Medication Sig Acetaminophen 325 MG tablet Take 2 tablets by mouth every 4 hours as needed. AMIOdarone 200 MG tablet Take 1 tablet by mouth daily. aspirin 81 MG Chew Tab chewable tablet Chew 1 tablet daily. Docusate 100 MG capsule Take 1 capsule by mouth 2 times daily. eplerenone 25 MG tablet Take 1 tablet by mouth daily. furOSEmide 40 MG tablet Take 1 tablet by mouth daily as needed. Losartan 50 MG tablet Take 1 tablet by mouth daily. Metoprolol succinate 50 MG tablet XL 50mg QAM + 25mg QPM rosuvastatin 10 MG tablet Take 1 tablet by mouth daily. Slow Magnesium/Calcium 70-[address] Take 1 tablet by mouth daily. warfarin 5 MG tablet Take 1 tablet by mouth every evening at 6 PM. INR managed at [facility] 5mg daily except for Saturday and 7.5mg daily Physical Exam BP 110/70 (BP Location: Left arm, BP Position: Sitting) Pulse 91 Ht 1.854 m (6' 1 ) Wt 116.6 kg (257 lb) SpO2 95% BMI 33.91 kg/m Smoking Status Never , Wt Readings from Last 3 Encounters: 07/21/24 116.6 kg (257 lb) 07/09/24 117.7 kg (259 lb 8 oz) 06/12/24 121.6 kg (268 lb) , Body mass index is 33.91 kg/m . General/Constitutional: Well developed, well nourished male. No acute distress. HEENT: Head: Normocephalic and atraumatic. Neck: Supple, non-tender. Cardiac: No JVD or carotid bruits. Regular rate and rhythm, NO MRG noted. 1+ LE peripheral edema. Pulmonary/Chest: Lungs are clear greer. Abdominal: + BS, NTND. No hepatomegaly. No hepatojugular reflux. Extremities: Normal strength in all four extremities. No cyanosis or clubbing. Peripheral Vascular Exam: Extremities w/d x 4 Neurological: Alert and oriented x 3. No focal neurologic deficit. Skin: Skin is warm and dry. Psychiatric: Appropriate mood and affect for his clinical situation. Labs/CV Testing: Lab Results Component Value Date SODIUM 140 07/09/2024 POTASSIUM 4.2 07/09/2024 CHLORIDE 103 07/09/2024 CO2 26 07/09/2024 BUN 21 07/09/2024 CREATSERUM 1.13 07/09/2024 Pre-visit GDMT and Device Therapy ACEI / ARB / ARNI:losartan 50 Beta Ashley:[id number]/25 AA: Eplerenone 25 Diuretic: Furosemide 40 GENERAL SCRAP WORKER-D: yes CardioMems: No SGLT2: Impression/Plan: 1. Bilateral robotic assisted thoracoscopic sympathectomy for ventricular tachycardia on 05/25/24 2. CMP / HFrEF (NYHA Class II/ ACC Stage C ): EF 26% (MRI 04/13/24) -warm and wet, his bnp was 347 on 07/09/[address] Hurtado said he could increase lasix to 40 bid but he has not done that yet. Will Have him do that for 3-5 days and call back next week with update -his GENERAL SCRAP WORKER pacing today is 83 % which is iproved but having PVC's, attempted to increase his base rate to 70 from 60 but just had more ectopy so left him at 60. -will check chem and bnp, follow-up Dr. Hurtado ~ 3-6 months 3. AF -[id number] Score: 3 4. [facility] on 04/10 24 which revealed: Coronary angiography: The left main is angiographically normal. The left anterior descending (LAD) has moderate non-obstructive disease throughout with a 50% proximal LAD lesion. The left circumflex (LCx) has mild disease throughout. The right coronary artery is has mild disease throughout with a 40% mid RCA lesion and a 40% distal RCA lesion.Right dominant coronary arterial circulation. A verbal summary of today's visit, orders, and medication changes were given to the patient at the completion of this visit. The patient was in agreement with today's plan. Dain Marmolejo CNP [facility] Heart Failure Service documented in this encounter [facility] 06-26-2024 Note Addended by: NATHALIE ELIZABETH on: 06/26/2024 08:26 AM Modules accepted: Orders [facility] 06-26-2024 Miscellaneous Notes Addended by: NATHALIE BOBO on: 06/26/2024 08:26 AM Modules accepted: Orders Dr. Cox reviewed pt call and discontinued Mexitil due to intolerance. Recent Device check shows PVC burden of 22% PT to be set up for Endocardial/Epicardial PVC ablation with KANNAN. Stop warfarin 3 days prior. Called pt and he voiced understanding and is agreeable. Meanwhile pt informs he is having post op complications - being treated for an infection in his chest/lungs. Requested pt keep us informed of outcome and will update Dr. Cox. Pt called back in response to [employer] message about CT scan that Dr. Cox had reviewed to see if he also reviewed note about stopping mexiletine. I notified pt that no reply yet, but should be able to get an answer by tomorrow when Dr. Cox is here at the [facility]. Pt agreeable. Pt also requested copy of his abnormal CT scan sent to his PCP, which I will fax. Dr. oCx requested pt follow-up with his PCP regarding the results. Patient called in to ask for update regarding stopping mexiletine. Advised we are waiting on Dr. Cox to review his device check/PVC burden. Routed to RADHA Brown and Dr. Cox. Patient calls to report not feeling well since cardioversion 06/12/24 - lightheadedness, fatigue, not right . Denies SOB, unable to say if having any palpitations/arhythmias, reports no issues with all procedure sites (cardioversion and sypathectomy). No BP to report, states HR 79 before call. Patient asking if medications could be causing symptoms now that he has had the cardioversion; confirms taking medications as prescribed. Forward to Dr Cox and team. documented in this encounter [facility] 06-26-[address] Cox reviewed pt call and discontinued Mexitil due to intolerance. Recent Device check shows PVC burden of 22% PT to be set up for Endocardial/Epicardial PVC ablation with KANNAN. Stop warfarin 3 days prior. Called pt and he voiced understanding and is agreeable. Meanwhile pt informs he is having post op complications - being treated for an infection in his chest/lungs. Requested pt keep us informed of outcome and will update Dr. Cox. [facility] 06-24-2024 Telephone encounter Note Pt called back in response to [employer] message about CT scan that Dr. Cox had reviewed to see if he also reviewed note about stopping mexiletine. I notified pt that no reply yet, but should be able to get an answer by tomorrow when Dr. Cox is here at the [facility]. Pt agreeable. Pt also requested copy of his abnormal CT scan sent to his PCP, which I will fax. Dr. Cox requested pt follow-up with his PCP regarding the results. T [facility] 06-24-2024 Telephone encounter Note Patient called in to ask for update regarding stopping mexiletine. Advised we are waiting on Dr. Cox to review his device check/PVC burden. Routed to RADHA Brown and Dr. Cox. T [facility] 06-18-2024 Telephone encounter Note Patient calls to report not feeling well since cardioversion 06/12/24 - lightheadedness, fatigue, not right . Denies SOB, unable to say if having any palpitations/arhythmias, reports no issues with all procedure sites (cardioversion and sypathectomy). No BP to report, states HR 79 before call. Patient asking if medications could be causing symptoms now that he has had the cardioversion; confirms taking medications as prescribed. Forward to Dr Cox and team. T [facility] 06-12-2024 Nurse Note Discharge instructions and printed AVS reviewed with patient by Gely, all questions answered. Pt verbalizes understanding. IV dc'd with no difficulty and catheter tip intact. Telemetry dc'd. VS stable at time of discharge. Patient being discharged to home.No patient belongings left at bedside. Post procedure recovery without events. Sedation education reviewed on AVS. [facility] 06-12-2024 Miscellaneous Notes Discharge instructions and printed AVS reviewed with patient by Gely, all questions answered. Pt verbalizes understanding. IV dc'd with no difficulty and catheter tip intact. Telemetry dc'd. VS stable at time of discharge. Patient being discharged to home.No patient belongings left at bedside. Post procedure recovery without events. Sedation education reviewed on AVS. documented in this encounter [facility] 06-12-2024 Hospital Discharge instructions JT Azar - 06/12/2024 9:35 AM EDT As Toletated JT Azar - 06/12/2024 9:35 AM EDT Diet: Cardiac 4gm NA Low sodium, low fat, low cholesterol, caffeine controlled. Sodium restricted to 4 grams. JT Azar - 06/12/2024 9:35 AM EDT Images from the original note were not included. Notify your physician Ask your doctor when you can drive again. Do not smoke. If you need help quitting, talk to your doctor about stop-smoking programs and medicines. These can increase your chances of quitting for good. Limit alcohol. Follow-up care is a andujar part of your treatment and safety. Be sure to make and go to all appointments, and call your doctor if you are having problems. It's also a good idea to know your test results and keep a list of the medicines you take. When should you call for help? Call 911 anytime you think you may need emergency care. For example, call if: You passed out (lost consciousness). You have chest pain or pressure. This may occur with: After calling 911, the cementing bulk material operator may tell you to chew 1 adult-strength or 2 to 4 low-dose aspirin. Wait for an ambulance. Do not try to drive yourself. Sweating. Shortness of breath. Nausea or vomiting. Pain that spreads from the chest to the neck, jaw, or one or both shoulders or arms. A fast or uneven pulse. You have symptoms of a stroke. These may include: Sudden numbness, tingling, weakness, or loss of movement in your face, arm, or leg, especially on only one side of your body. Sudden vision changes. Sudden trouble speaking. Sudden confusion or trouble understanding simple statements. Sudden problems with walking or balance. A sudden, severe headache that is different from past headaches. Call your doctor now or seek immediate medical care if: You feel dizzy or lightheaded, or you feel like you may faint. You have a fast or irregular heartbeat. Watch closely for any changes in your health, and be sure to contact your doctor if you have any problems. Where can you learn more? Go to https://www.[employer].net/osumy chart. Enter A617 in the search box to learn more about 'Electrical Cardioversion: What to Expect at Home.' I The following attachments cannot be sent through Care Everywhere.Cardioversion: Post-op (Tunisian)documented in this encounter [facility] 06-04-2024 History of Present illness Narrative PROGRESS NOTE Chief complaint: post op follow up visit HPI: Tania Venegas is a 58 y.o. male never smoker who is status post bilateral robotic assisted thoracoscopic sympathectomy 05/25/24 for Vtach. He returns today for his post operative visit with a CXR. He states he has been short of breath and fatigued since surgery. His notes that he was short of breath before surgery. He is not sleeping well due to discomfort from the incisions. He has not noticed any tachycardia or palpitations. He is only taking acetaminophen for pain at this point. Review of Systems Negative for fever, chills, cough, or hemoptysis. Positive for fatigue and shortness of breath Physical Exam BP 128/89 (BP Location: Right arm, BP Position: Sitting) Pulse 71 Temp 97 F (36.1 C) (Temporal) Resp 18 Ht 1.854 m (6' 1 ) Wt 122 kg (268 lb 14.4 oz) SpO2 95% BMI 35.48 kg/m Smoking Status Never on RA HEART: regular rate and rhythm. No murmurs, rubs or gallops. LUNGS: Breathing non-labored, lungs clear bilaterally. INCISIONS: incisions are well approximated and appropriately healing. Some scabbing around incisions noted from tape reaction. Bilateral chest tube sites are well approximated with sutures intact. Imaging Upon my personal review, his CXR today shows improvement in lung volumes and left basilar atelectasis/effusion. Assessment/Plan: Problem Ventricular Tachycardia Tania Venegas is a 58 y.o. male who underwent bilateral robotic assisted thoracoscopic sympathectomy 05/25/24 for Vtach who returns today for a post op check. On my review of images his CXR shows improvement in lung volumes and improvement in left basilar atelectasis/effusion. Incisions are healing appropriately, chest tube site sutures removed today. Encouraged Tania to check in with cardiology regarding shortness of breath and fatigue. Follow up with thoracic surgery as needed. Acute Postoperative Pain Prescription for tramadol at bedtime provided today not exceeding 30 MED or 7 days. JT Ashley #[id number] documented in this encounter [facility] 05-26-2024 Miscellaneous Notes 1219 - pt discharged home at this time per physician orders; AVS/Rx reviewed at length with pt and pt's at bedside, all of whom verbalize full understanding of discharge instructions; all IV's removed and hemostasis established; all belongings with pt upon discharge; all questions answered/addressed; pt denies any needs or concerns at this time; pt's to drive pt home; pt taken to lobby via wheelchair and no s/sx of acute distress noted upon discharge. Problem: Adult Inpatient Plan of Care Goal: Plan of Care Review Outcome: Progressing Goal: Patient-Specific Goal (Individualized) Outcome: Progressing Goal: Absence of Hospital-Acquired Illness or Injury Outcome: Progressing Goal: Optimal Comfort and Wellbeing Outcome: Progressing Goal: Readiness for Transition of Care Outcome: Progressing Problem: Pain Acute Goal: Optimal Pain Control and Function Outcome: Progressing Problem: Adult Inpatient Plan of Care Goal: Plan of Care Review Outcome: Progressing Goal: Patient-Specific Goal (Individualized) Outcome: Progressing Goal: Absence of Hospital-Acquired Illness or Injury Outcome: Progressing Goal: Optimal Comfort and Wellbeing Outcome: Progressing Goal: Readiness for Transition of Care Outcome: Progressing Problem: Pain Acute Goal: Optimal Pain Control and Function Outcome: Progressing Tania Venegas ([id number]) PRE OPERATIVE DIAGNOSIS V-tach [I47.20] POST OPERATIVE DIAGNOSIS V-tach [I47.20] PROCEDURE PERFORMED Procedure(s) (LRB): SYMPATHECTOMY THORACIC ROBOTIC (Bilateral) PRIMARY CLOSURE Yes INTRAOPERATIVE FINDINGS Bilateral robotic assisted thoracoscopic sympathectomy SURGEON Surgeons and Role: * Prince Falk MD - Primary ANESTHESIOLOGIST Anesthesiologist: Eduardo Goldberg DO Engraver Automatic Assisting: Suellen San MD SURGICAL STAFF Bundle Cutter: Srikanth Mark RN; Josie Segura RN Physician Ice Skater: Emerald Harden PA-C Relief Scrub: Aldo Nelson Scrub Person: Benny Celis Fellow: Alyssa George MD COMPLICATIONS None ESTIMATED BLOOD LOSS Minimal SPECIMENS ID Type Source Tests Collected by Time Destination 1 : Left sympathetic nerve chain, T1-T4 Permanent SURG PATH SURG PATH REQUEST Prince Falk MD 05/25/2024 0905 2 : Right sympathetic nerve chain, T1-T4 Permanent SURG PATH SURG PATH REQUEST Prince Falk MD 05/25/2024 [id number] Emerald Harden PA-C May 25, 2024 2:24 PM On admission to , from OR a dual RN initial assessment of skin condition was performed by Naomi Ramos RN and Lisy Bennett RN. Skin Assessment: Skin within defined limits:Yes Pierce Score: 21 LDA Added:No Naomi Ramos RN Per Emerald from T/S service [facility] chest x-ray clear Thoracic Surgery Operative Report Date: 05/25/2024 Preoperative Diagnosis: Recurrent VT (ventricular tachycardia) Postoperative Diagnosis: Recurrent VT (ventricular tachycardia) Procedures Performed: 1. Left robotic assisted thoracoscopic sympathectomy (T1-T4) 2. Left multilevel intercostal nerve block 3. Right robotic assisted thoracoscopic sympathectomy (T1-T4) 4. Right multilevel intercostal nerve block Intraoperative Findings: Successful sympathectomy bilaterally, hemostasis achieved bilaterally, no air leaks postoperatively Surgeon: Prince Falk MD Assistants: Alyssa George MD; Emerald Harden PA-C Anesthesia Type: General Anesthesia via double lumen ETT Estimated Blood Loss: 5 ml Intravenous Fluid: See Anesthesia Record. Specimens: Left and right sympathetic trunks T1-T4 Drains: 24Fr meron on left, 24Fr meron on right Complications: none Disposition: The patient tolerated the operation well. He was extubated and transported to the postanesthesia care unit in stable condition. 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 Thoracic Surgery was consulted by Electrophysiology for bilateral VATS sympathectomy/cardiac sympathetic denervation. The risks, benefits, and alternatives were discussed with the patient who consented to the procedure. Description of the procedure: The patient was brought to the [facility] operating room and placed on the OR table in a supine position. After general endotracheal anesthesia was administered, a double-lumen endotracheal tube was safely placed. An arterial line and fragoso were placed. The patient then received Zoll pads over the sternum and the back, which were then connected to external defibrillator. The defibrillator was turned off to DOO and the pacemaker was set to HR 70. The patient was then placed in right lateral decubitus position, and the left chest was prepped and draped in the usual sterile fashion. Time out was performed, verifying correct patient and procedure. Three robotic port sites were placed along the left chest, an 8mm one along the mid axillary line at approximately the 3rd intercostal space, another 8mm port along the posterior axillary line at approximately the 5th intercostal space, and a 8mm port in line with the scapular tip at the 8th interspace. A 12mm airseal accounts payable assistant port was placed in the 9th interspace. The robot was then docked and instruments inserted into the chest. The chest was insufflated. The lung was retracted anteriorly. The thoracic sympathetic chain was then identified over the 1st, 2nd, 3rd, and 4th ribs. The sympathetic chain was dissected from T1 through T4, excising the overlying pleura. An accessory nerve of Kristan was identified and transected using the long hook electrocautery. The sympathetic chain was then transected inferior to the stellate ganglion to the level of T4. This was done with the help of a long hook electrocautery and a Cardiere forceps. Care was taken to ensure adequate hemostasis. Once the thoracic sympathetic chain (T1 through T4) was completely excised, it was removed from the chest cavity and handed off the field as specimen for pathology. Intercostal nerve blocks were performed. Hemostasis was confirmed. A 24Fr meron drain was placed into the chest via the anterior port site and guided to lay posteriorly along the posterior chest wall. The lung was allowed to expand under direct thoracoscopic vision. The ports were removed. The port sites were closed in multiple layers using 2-0 and 4-0 vicryl and topped with steri-strips. The meron drain was sutured in place with ethibond. The meron was connected to a Pleur-evac at negative 10cm H2O. Once the left side was closed the patient was flipped to the opposite side and his right chest was prepped and draped in the usual sterile fashion. We inserted the same series of ports as above and docked the robot. Using a similar technique on entry into the chest, the patient's lung was retracted anteriorly. Again the sympathetic chain was visualized and the overlying pleura was incised on either side parallel to the sympathetic chain from T1 to T4. The sympathteic chain was successfully circumferentially mobilized and the proximal and distal ends were transected and the excised T1 to T4 segment was handed off the field as specimen for pathology. Hemostasis was confirmed. Intercostal nerve blocks were performed. A 24Fr meron drain was placed into the chest via the anterior port site and guided to lay posteriorly along the posterior chest wall. The lung was allowed to inflate without issue. The incisions were closed in multiple layers using 2-0 and 4-0 vicryl and topped with steri-strips. The chest tube stitch was placed. The chest tube was connected to negative 10cm H2O suction. The patient was repositioned supine. He was awakened and extubated. He was transported to the PACU in stable condition. All instrument and sponge counts were correct x2. Dr. Falk was present and scrubbed for the entirety of the surgery. Alyssa George MD Cardiothoracic Surgery, Fellow documented in this encounter [facility] 05-26-2024 Nurse Note 1219 - pt discharged home at this time per physician orders; AVS/Rx reviewed at length with pt and pt's at bedside, all of whom verbalize full understanding of discharge instructions; all IV's removed and hemostasis established; all belongings with pt upon discharge; all questions answered/addressed; pt denies any needs or concerns at this time; pt's to drive pt home; pt taken to lobby via wheelchair and no s/sx of acute distress noted upon discharge. [facility] 05-26-2024 Hospital Discharge instructions Kelly Tao APRN-SAULO - 05/26/2024 11:06 AM EDT RESUME YOUR HOME WARFARIN ON 05/27/24 PAIN MEDICATION: -A prescription for pain medicine will be sent home with you. Do not drive while taking prescription pain medicine. Eat when taking pain medicines to avoid nausea. Watch for constipation. Eat plenty of fruits, vegetables, juices, and drink 6 to 8 glasses of water each day. -Take a stool softener twice a day as long as you remain on pain medicine. If you do not have a bowel movement within 5 days of your surgery, please take milk of magnesia. If you do not have a bowel movement within 12 hours of milk of magnesia, call the office. -you can take acetaminophen (Tylenol) and ibuprofen (Advil, Motrin) in addition to your prescription pain medication if you have no other contraindications to those medications. Use these medications to help you need less narcotic pain medication. -you can start to wean yourself off the narcotic pain medication as soon as you feel comfortable by taking a smaller dose and/or increasing the number of hours in between doses. JT Seals - 05/26/2024 12:52 AM EDT ACTIVITY: - No driving until you are seen in the office for your post operative visit - Do not lift anything heavier than 5 lbs for 6 weeks - No strenuous activity for 6 weeks. - Numbness and tingling in the chest on the surgical side is normal. This may take 6 to 12 months to improve. JT Ashley - 05/26/2024 12:52 AM EDT Resume your usual diet JT Ashley - 05/26/2024 12:52 AM EDT CALL THE DOCTOR IF YOU EXPERIENCE: UNRELIEVED PAIN: - Increased or unrelieved pain SIGNS OF WOUND INFECTION: - Increase in pain in or around wound. - Change in the amount of drainage. - Change in the color of drainage. - Change in the odor of drainage. - Warmth in the tissues around the wound. - Red streaks on the skin near the wound. - Fever (temperature greater than 101.5 degrees F) - Incision separates or opens up CHEST PAIN OR RESPIRATORY CHANGES: - Chest pain or shortness of breath - Shortness of breath that gets worse - Cough that gets worse - Coughing up blood FEVER/CHILLS/FLU-LIKE SYMPTOMS: Temperature greater than 101.5 degrees F and/or chills. - Signs of cold or flu. NAUSEA OR VOMITING -Inability to take fluids for greater than 24 hours. SIGNS OF DEEP VEIN THROMBOSIS (DVT): DVT = Deep Vein Thrombus, or Blood Clot -Any Tender, Swollen, or Reddened Areas From Your Groin To Your Heels -Numbness or Tingling In Groin or Calf -The Skin on Your Leg Looks Pale or Blue Or It Feels Cold To Touch -Numbness or Tingling In Groin or Calf -Any Shortness of Breath -Chest Pain -Fever or Chills Thoracic Surgery Contact Information: Clinical questions, 24 hours a day, 7 days a week: [phone] Outpatient Account Contact Associate: Chauncey Lopez [phone] Outpatient Keg Varnisher: Antonia Guadalupe [phone] JT Seals - 05/26/2024 12:52 AM EDT YOU MAY SHOWER (48 hours post chest tube removal) NO TUB BATHS: -Do not take tub bath, go swimming or use a hot tub until instructed by your doctor. INCISION CARE: -Please clean it daily with mild soap and water. -Keep it dry and open to air -Notify us of any increasing redness, pus-like discharge or seperation of the incision. -Do not let the shower stream hit the incision directly. - Numbness and tingling in the chest on the surgical side is normal. This may take 6 to 12 months to improve. CHEST TUBE SITE CARE: - Keep chest tube site dressing in place for 48 hours after chest tube has been removed. After 48 hours you can remove dressing, take a shower, and leave site open to air if it is not draining. We will provide dressing supplies upon discharge in case you need them. - It is normal for the chest tube site to drain clear or pale yellow fluid. If draining, cover with band-aid or sterile gauze dressing. If the drainage develops an odor, becomes pus-like, the area becomes red, or you develop a fever, please contact us. -Clean with soap and water daily, pat dry. Do not apply any ointments or creams to tube insertion site unless instructed by your doctor. The following attachments cannot be sent through Care Everywhere.Incentive Spirometer (Alise Benjamin) (Tunisian)Pain Post-Surgery: Acute (Tunisian)documented in this encounter [facility] 05-26-2024 History of Present illness Narrative Discharge Planning Patient Assessment Admission Assessment Patient Assessment Completed: Initial Anticipated discharge disposition: Home Reason for Admission: sympathectomy/cardiac sympathetic denervation Is the patient able to participate in the assessment?: Yes Information source: Review of Medical Record, Patient Demographics Verified and Updated: Yes Has the patient been admitted to any hospital in the last 30 days?: No Advanced Care Planning Has the patient completed Advance Directives?: Not Completed Referral to Social Work for Advance Care Planning? : Patient Declines Legal Next of Kin Does the patient have a Guardian?: No Spouse: Yes Name and Contact information: Juliana Venegas [phone] Reviewed and Updated in Demographics? : Yes Outpatient Providers Does patient have a primary care physician? : Yes When was the patient's last PCP visit?: > 30 days Does the patient follow any specialists?: Yes Reviewed and updated Care Team?: Yes Patient Care Team: Oliver Springer Jr., DO as PCP - General (Internal Medicine) Alexander Cox MD as PCP - Referring 2 (Clinical Cardiac Electrophysiology) Mojgan Zelaya MD (Interventional Cardiology) Environment/Caregivers Is the patient from a facility or fpc?: No Patient lives with: Spouse or Partner Living Environment: House How many steps does the patient have to navigate to enter or inside the home? : 4 GUILLERMO 10 to second floor Does the patient have a first floor set-up with bed and bathroom?: No Patient Caregiving Responsibilities: Self Patient-identified caregiver/support network: Family Who does the patient identify as a teachable caregiver(s)?: Spouse or Partner Services Does the patient use a home health or hospice agency?: No Current with dialysis?: No Does the patient use any community programs or services?: No Does patient use DME? : cpap DME provider name and contact: [employer] Would you like to add additional DME providers?: No Does the patient use oxygen?: No Does patient use medical supplies? : none Anticipated Changes Related to Illness/Injury? : No Initial ADLs Prior to Arrival What is the patient's baseline physical functioning prior to this acute illness?: independent What is the patient's baseline cognitive functioning prior to this acute illness?: independent Is the patient's baseline functioning changed by this acute illness? : No Concerns with patient being able to care for themselves at home? : No Are there therapy or specialists consults?: No Does the patient's home require any home modifications for discharge? : No CM to recommend therapy or other consults? : No Medication Management Does the patient have prescription insurance coverage? : Yes Is the patient on Anticoagulation? : Yes Provider or Clinic that manages Anticoagulation?: [facility]- monitored [id number] [place] [phone] - [phone] [facility] [address] [place] [place] [address] [employer] Does the patient or healthcare representative express financial concerns? : No Employed?: Disabled Coping/Stress Concerns about patient s coping and stress?: No Concerns about patient s caregiver s coping and stress?: No Values and Beliefs Cultural or bahai practices that may impact discharge planning and/or medical care?: No Initial Discharge Planning Anticipated discharge disposition: Home Transportation Available for Discharge: Family or Friend, Private Vehicle Anticipated DME: none Anticipated Services at Discharge: Outpatient follow up Patient Assessment Completed: Initial Expected Discharge Date: 05/27/2024 Discharge Planning Summary SW completed initial assessment at the bedside. Anticipate patient to discharge home with support from spouse. Care Management Plan 1. RX and PCP updated in the system 2. Will monitor team recommendations for level of care at discharge 3. Patient will be provided instructions on follow up appointments 4. Patient will be provided instructions/information on the warning signs and symptoms which may indicate the need to seek medical attention. Dalila NOBLE, [facility] Gas Meter Reader Chest Tube Removal Note Left chest tube output 290 ml/24 hours, no air leak. Left chest tube removed per protocol. Patient tolerated well. Purse string suture tied. Dry dressing applied to site. CXR pending. JT Ashley #[id number] Chest Tube Removal Note Rigth chest tube output 190 ml/24 hours, no air leak. Right chest tube removed per protocol. Patient tolerated well. Purse string suture tied. Dry dressing applied to site. CXR pending. JT Ashley #[id number] 05/25/24 1537 Assessment Type ## Assessment-Evaluation initial RT Intervention Assessment-Evaluation Assessment Type general RT Reason for Assessment RT Protocol RT Acuity Assessment Tool RT Protocol Assessment initial mMRC Dyspnea Score 1 RT Modified Janay Score 0 Combined Dyspnea Score 1 RT Acuity Level 5 Inpatient Progress Note: Tania Venegas Date: 05/25/2024 3:09 PM Chief Complaint: Ventricular Tachycardia Primary Surgeon: Prince Falk MD KEWEENAW: Tania Venegas is a 58 y.o. 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 He was referred by Alexander Cox MD for surgical evaluation after recent VT/VF storm. Patient recently admitted (discharged 04/13) after being shocked by his ICD on 04/04/24 resulting in LOC. Device interrogation on 04/09 with 58 VT detections. Coronary angiography with [facility] completed on 04/10/24 revealed non-obstructive coronary artery disease. Cardiac MRI 04/13/24 demonstrated severe biventricular systolic dysfunction with predominantly non-ischemic fibrosis. LVEF 26% and RVEF 34%. He was taken to the operating room on 05/25/24 for bilateral robotic assisted thoracoscopic sympathectomy. Subjective: No acute events since OR. Pain moderately controlled. Denies nausea/vomiting. Seen resting in bed. Objective: Vital Signs: Blood pressure 139/78, pulse 66, temperature 97.4 F (36.3 C), temperature source Oral, resp. rate 14, height 1.854 m (6' 1 ), weight 123.3 kg (271 lb 12.8 oz), SpO2 93%. Right chest tube output: NR, to -10 cm suction, no air leak Left chest tube output: NR, to -10 cm suction, no air leak UOP: NR 24 hour I/O: Intake/Output Summary (Last 24 hours) at 05/25/2024 1509 Last data filed at 05/25/2024 1439 Gross per 24 hour Intake 605.47 ml Output 379 ml Net 226.47 ml Physical Exam: Alert and oriented x 3 with no acute distress. Breathing non-labored, conversational without dyspnea. Bilateral chest tubes to -10 cm suction with no air leak. Surgical incisions well approximated, without erythema, edema, or exudate. Abdomen soft, non-tender, non-distended. No pretibial or pedal edema noted. Laboratory Data: Pathology 05/25/24: pending Cytology: Micro: Radiology Studies: CXR 05/25/24: stable CXR with bilateral chest tubes, final read pending. Consults: Cardiology Cardiology- EP Assessment/Plan: Problem Ventricular Tachycardia POD #0 bilateral robotic assisted thoracoscopic sympathectomy. Final pathology pending. Continue bilateral chest tubes to -10 cm suction. Clear liquid diet. Advance as tolerated. Continue rfagoso catheter and arterial line tonight. Assess for removal in AM. Continue home amiodarone and mexiletine. EP consulted, appreciate recommendations. Continue to encourage aggressive pulmonary toilet and monitor daily chest xray. Hld (Hyperlipidemia) Continue home rosuvastatin. Post-Operative Pain Pain well controlled. Continue scheduled acetaminophen, prn toradol, and prn tramadol. Continue to monitor and adjust as necessary. At Moderate Risk for Deep Venous Thrombosis Subcutaneous enoxaparin to start on POD #1, SCDs, and ambulation encouraged. Health Education/Counseling Plan of care discussed with patient. Patient is agreeable and verbalizes understanding. Earliest expected discharge date 05/26/24 pending post operative progression. Essential Hypertension Continue home po metoprolol, losartan, and elperenone with hold parameters. Hold home prn furosemide. Brannon (Obstructive Sleep Apnea) Continue home nocturnal CPAP. Af (Atrial Fibrillation) s/p ablation (c/b perforation 2016) and CTI ablation 2016 and 2020. Continue ASA. Hold home warfarin. Complexity. Obesity Body mass index is 35.86 kg/m . - Follow with PCP for dietary and lifestyle modifications. Any conditions listed below are present on admission unless otherwise specified. . The patient was seen, images reviewed, and plan of care discussed with Prince Falk MD. JT Parra #[id number] documented in this encounter [facility] 05-25-2024 Plan of care note Problem: Adult Inpatient Plan of Care Goal: Plan of Care Review Outcome: Progressing Goal: Patient-Specific Goal (Individualized) Outcome: Progressing Goal: Absence of Hospital-Acquired Illness or Injury Outcome: Progressing Goal: Optimal Comfort and Wellbeing Outcome: Progressing Goal: Readiness for Transition of Care Outcome: Progressing Problem: Pain Acute Goal: Optimal Pain Control and Function Outcome: Progressing [facility] 05-25-2024 Consult note Associated Order (s): IP CONSULT TO CARDIOLOGY - EP Cardiac Electrophysiology Consultation Tania Venegas [id number] IMPRESSION & RECOMMENDATIONS: # permAF # hx of VT shocks # NICM s/p 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 Pt is in persistent AF for the past two weeks with CHB and 97% BiV-paced. He has has not had any sustained VT since last interrogation. Given high percentage of BiV-pacing despite AF as well as the immediate post-op setting, we recommend no additional changes for AF at this time. He can continue amiodarone for VT suppression. Anticoagulation should be restarted as soon as possible. EP will sign off. We will arrange appropriate EP follow-up. -- Juan Luis Omalley MD PGY-8, Cardiac EP Staffed with Dr. Ragsdale DATA: ECG: all ECGs from this admission that are in EKG [place] are personally reviewed and interpreted. Historical ECGs reviewed as needed. Telemetry: reviewed Rads: reviewed Cardiac Studies: All echocardiograms, CMRs from this admission reviewed. Historical echos, CMR, caths reviewed on an as needed basis. HPI: 58 y.o.male hx of NICM, GENERAL SCRAP WORKER-D, perAF, CHB, and appropriate ICD shocks admitted on 05/25/2024 for sympathectomy. EP consulted for AAD management. Patient is immediately post-op at time of evaluation. He denies any symptoms. ROS: Negative except as noted in HPI. HISTORY: PAST MEDICAL HISTORY: He has a past medical history of A-fib, Arrhythmia, Arthritis, Atherosclerotic heart disease [place] coronary artery w/angina pectoris (04/10/2024), Bradycardia, Carcinoma of colon, Chest pain, CHF (congestive heart failure), Diastolic dysfunction, HLD (hyperlipidemia) (05/25/2024), Hypertension, Lymphoma, Nonischemic congestive cardiomyopathy, Pacemaker, Restless legs, Sleep apnea, Systolic dysfunction, and Systolic heart failure. He has no past medical history of Anemia, Asthma, Bleeding disorder, COPD (chronic obstructive pulmonary disease), Depression, Diabetes mellitus, GERD (gastroesophageal reflux disease), Glaucoma, Hepatitis, HIV (human immunodeficiency virus infection), Hyperthyroidism, Hypothyroidism, Liver disease, DE (myocardial infarction), Migraine, Renal disease, Seizure, Sickle cell anemia, Stroke, TIA (transient ischemic attack), or Vascular disease. SOCIAL HISTORY: He reports that he has never smoked. He has never used smokeless tobacco. He reports current alcohol use. He reports that he does not use drugs. FAMILY HISTORY: His family history includes Colorectal Cancer in his father; Other - Specify in his father and mother. He He indicated that his mother is . He indicated that his father is . PAST SURGICAL HISTORY: His has a past surgical history that includes icd placement; foot surgery (Bilateral); atrial fibrillation ablation (N/A, 07/19/2017); hip replacement (Bilateral); cholecystectomy; and colectomy. ALLERGIES: Allergies Allergen Reactions Seasonal [*Seasonal] hayfever HOME MEDICATIONS: Medications Prior to Admission Medication Sig Dispense Refill Last Dose Acetaminophen 325 MG tablet Take 2 tablets by mouth every 4 hours as needed. Past Month AMIOdarone 200 MG tablet Take two tablets by mouth three times daily through 04/17. THEN, take two tablets daily through 05/17. THEN, take one tablet daily thereafter. 90 tablet 3 05/24/2024 aspirin 81 MG Chew Tab chewable tablet Chew 1 tablet daily. 30 tablet 0 05/24/2024 eplerenone 25 MG tablet Take 1 tablet by mouth daily. 90 tablet 3 05/24/2024 furOSEmide 40 MG tablet Take 1 tablet by mouth daily as needed. Past Week Metoprolol succinate 50 MG tablet XL 50mg QAM + 25mg QPM 135 tablet 1 05/24/2024 mexiletine 200 MG capsule Take 1 capsule by mouth every 8 hours. (Patient taking differently: Take 1 capsule by mouth 2 times daily.) 90 capsule 3 05/24/2024 rosuvastatin 10 MG tablet Take 1 tablet by mouth daily. 05/24/2024 Losartan 50 MG tablet Take 1 tablet by mouth daily. 30 tablet 3 05/23/2024 at am Slow Magnesium/Calcium 70-[address] Take 1 tablet by mouth daily. warfarin 5 MG tablet Take 1 tablet by mouth every evening at 6 PM. INR managed at [facility] 5mg daily except for 7.5mg daily 05/17/2024 CURRENT MEDICATIONS: Acetaminophen 650 mg Oral Q6HNS AMIOdarone 200 mg Oral Daily aspirin 81 mg Oral Daily ceFAZolin 1 g Intravenous Q8HNS Docusate 100 mg Oral BID [START ON 05/26/2024] enoxaparin 40 mg Subcutaneous Q24H eplerenone 25 mg Oral Daily Ipratropium-albuterol 3 mL Nebulization Q6HNS Losartan 50 mg Oral Daily Metoprolol succinate 25 mg Oral Daily early evening Metoprolol succinate 50 mg Oral QAM mexiletine 200 mg Oral BID Polyethylene glycol 17 g Oral Q12H Rosuvastatin 10 mg Oral Daily Senna 17.2 mg Oral Q12H Dextrose 5%/sodium chloride 0.45% w/potassium cl 75 mL/hr at 05/25/24 1404 OBJECTIVE: Temp: [97.3 F (36.3 C)-97.7 F (36.5 C)] 97.4 F (36.3 C) Pulse (Heart Rate): [62-73] 69 Resp Rate: [11-28] 28 BP: (132-147)/(64-78) 139/78 Arterial Line (1) BP: (96-120)/(48-73) 116/69 O2 Sat (%): [90 %-96 %] 93 % Weight: [123.3 kg (271 lb 12.8 oz)] 123.3 kg (271 lb 12.8 oz) Physical Exam General appearance - NAD Chest - normal rise and fall Heart - regular rate and rhythm Abdomen - non-distended. Extremities - no edema Skin - no generalized rash. Psych - mood appropriate Lab Results Component Value Date SODIUM 135 05/25/2024 SODIUM 135 05/14/2024 SODIUM 140 11/05/2023 POTASSIUM 4.0 05/25/2024 POTASSIUM 3.9 11/05/2023 GLUCOSE 106 (H) 05/25/2024 GLUCOSE 120 (H) 05/25/2024 GLUCOSE 101 09/19/2022 CHLORIDE 103 05/14/2024 CHLORIDE 104 11/05/2023 CO2 24 05/14/2024 CO2 31.1 11/05/2023 BUN 17 05/14/2024 BUN 17.0 11/05/2023 CREATSERUM 1.11 05/14/2024 CREATSERUM 1.10 11/05/2023 TSH 1.311 04/09/2024 TSH 1.108 12/10/2018 Lab Results Component Value Date WBC 7.73 05/14/2024 WBC 6.66 12/10/2018 HGB 13.3 (L) 05/14/2024 HGB 13.4 12/10/2018 HCT 33 (L) 05/25/2024 HCT 40.6 05/14/2024 HCT 40.7 12/10/2018 PLATELET 216 05/14/2024 PLATELET 220 12/10/2018 MCV 94.0 05/14/2024 MCV 86.6 12/10/2018 Lab Results Component Value Date BNP 145 (H) 04/09/2024 BNP 1,159 11/05/2023 Lab Results Component Value Date PT 14.5 (H) 05/25/2024 PT 16.4 (H) 12/10/2018 PTT 27.2 05/25/2024 PTT 30.4 12/10/2018 INR 1.1 05/25/2024 INR 2.0 10/27/2020 Associated attestation - Derrick Nunez MD - 05/25/2024 8:14 PM EDT Electrophysiology attending physician I have personally interviewed and examined this patient with the electrophysiology [EP] fellow on 05/25/2024 I have reviewed the history and examination and edited these in the note above. I agree with the medical decision and components of the note as edited by me. If you have any additional questions or concerns, please do not hesitate to contact me. Derrick Nunez MD. Professor of Internal Medicine Division of Cardiovascular Medicine, [email or web address] [phone] [facility] Work Phone: 05-25-2024 Consult note Associated Order (s): IP CONSULT TO CARDIOLOGY - EP Cardiac Electrophysiology Consultation Tania Venegas [id number] IMPRESSION & RECOMMENDATIONS: # permAF # hx of VT shocks # NICM s/p 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 Pt is in persistent AF for the past two weeks with CHB and 97% BiV-paced. He has has not had any sustained VT since last interrogation. Given high percentage of BiV-pacing despite AF as well as the immediate post-op setting, we recommend no additional changes for AF at this time. He can continue amiodarone for VT suppression. Anticoagulation should be restarted as soon as possible. EP will sign off. We will arrange appropriate EP follow-up. -- Juan Luis Omalley MD PGY-8, Cardiac EP Staffed with Dr. Ragsdale DATA: ECG: all ECGs from this admission that are in EKG [place] are personally reviewed and interpreted. Historical ECGs reviewed as needed. Telemetry: reviewed Rads: reviewed Cardiac Studies: All echocardiograms, CMRs from this admission reviewed. Historical echos, CMR, caths reviewed on an as needed basis. HPI: 58 y.o.male hx of NICM, GENERAL SCRAP WORKER-D, perAF, CHB, and appropriate ICD shocks admitted on 05/25/2024 for sympathectomy. EP consulted for AAD management. Patient is immediately post-op at time of evaluation. He denies any symptoms. ROS: Negative except as noted in HPI. HISTORY: PAST MEDICAL HISTORY: He has a past medical history of A-fib, Arrhythmia, Arthritis, Atherosclerotic heart disease [place] coronary artery w/angina pectoris (04/10/2024), Bradycardia, Carcinoma of colon, Chest pain, CHF (congestive heart failure), Diastolic dysfunction, HLD (hyperlipidemia) (05/25/2024), Hypertension, Lymphoma, Nonischemic congestive cardiomyopathy, Pacemaker, Restless legs, Sleep apnea, Systolic dysfunction, and Systolic heart failure. He has no past medical history of Anemia, Asthma, Bleeding disorder, COPD (chronic obstructive pulmonary disease), Depression, Diabetes mellitus, GERD (gastroesophageal reflux disease), Glaucoma, Hepatitis, HIV (human immunodeficiency virus infection), Hyperthyroidism, Hypothyroidism, Liver disease, [place] (myocardial infarction), Migraine, Renal disease, Seizure, Sickle cell anemia, Stroke, TIA (transient ischemic attack), or Vascular disease. SOCIAL HISTORY: He reports that he has never smoked. He has never used smokeless tobacco. He reports current alcohol use. He reports that he does not use drugs. FAMILY HISTORY: His family history includes Colorectal Cancer in his father; Other - Specify in his father and mother. He He indicated that his mother is . He indicated that his father is . PAST SURGICAL HISTORY: His has a past surgical history that includes icd placement; foot surgery (Bilateral); atrial fibrillation ablation (N/A, 07/19/2017); hip replacement (Bilateral); cholecystectomy; and colectomy. ALLERGIES: Allergies Allergen Reactions Seasonal [*Seasonal] hayfever HOME MEDICATIONS: Medications Prior to Admission Medication Sig Dispense Refill Last Dose Acetaminophen 325 MG tablet Take 2 tablets by mouth every 4 hours as needed. Past Month AMIOdarone 200 MG tablet Take two tablets by mouth three times daily through 04/17. THEN, take two tablets daily through 05/17. THEN, take one tablet daily thereafter. 90 tablet 3 05/24/2024 aspirin 81 MG Chew Tab chewable tablet Chew 1 tablet daily. 30 tablet 0 05/24/2024 eplerenone 25 MG tablet Take 1 tablet by mouth daily. 90 tablet 3 05/24/2024 furOSEmide 40 MG tablet Take 1 tablet by mouth daily as needed. Past Week Metoprolol succinate 50 MG tablet XL 50mg QAM + 25mg QPM 135 tablet 1 05/24/2024 mexiletine 200 MG capsule Take 1 capsule by mouth every 8 hours. (Patient taking differently: Take 1 capsule by mouth 2 times daily.) 90 capsule 3 05/24/2024 rosuvastatin 10 MG tablet Take 1 tablet by mouth daily. 05/24/2024 Losartan 50 MG tablet Take 1 tablet by mouth daily. 30 tablet 3 05/23/2024 at am Slow Magnesium/Calcium 70-[address] Take 1 tablet by mouth daily. warfarin 5 MG tablet Take 1 tablet by mouth every evening at 6 PM. INR managed at [facility] 5mg daily except for 7.5mg daily 05/17/2024 CURRENT MEDICATIONS: Acetaminophen 650 mg Oral Q6HNS AMIOdarone 200 mg Oral Daily aspirin 81 mg Oral Daily ceFAZolin 1 g Intravenous Q8HNS Docusate 100 mg Oral BID [START ON 05/26/2024] enoxaparin 40 mg Subcutaneous Q24H eplerenone 25 mg Oral Daily Ipratropium-albuterol 3 mL Nebulization Q6HNS Losartan 50 mg Oral Daily Metoprolol succinate 25 mg Oral Daily early evening Metoprolol succinate 50 mg Oral QAM mexiletine 200 mg Oral BID Polyethylene glycol 17 g Oral Q12H Rosuvastatin 10 mg Oral Daily Senna 17.2 mg Oral Q12H Dextrose 5%/sodium chloride 0.45% w/potassium cl 75 mL/hr at 05/25/24 1404 OBJECTIVE: Temp: [97.3 F (36.3 C)-97.7 F (36.5 C)] 97.4 F (36.3 C) Pulse (Heart Rate): [62-73] 69 Resp Rate: [11-28] 28 BP: (132-147)/(64-78) 139/78 Arterial Line (1) BP: (96-120)/(48-73) 116/69 O2 Sat (%): [90 %-96 %] 93 % Weight: [123.3 kg (271 lb 12.8 oz)] 123.3 kg (271 lb 12.8 oz) Physical Exam General appearance - NAD Chest - normal rise and fall Heart - regular rate and rhythm Abdomen - non-distended. Extremities - no edema Skin - no generalized rash. Psych - mood appropriate Lab Results Component Value Date SODIUM 135 05/25/2024 SODIUM 135 05/14/2024 SODIUM 140 11/05/2023 POTASSIUM 4.0 05/25/2024 POTASSIUM 3.9 11/05/2023 GLUCOSE 106 (H) 05/25/2024 GLUCOSE 120 (H) 05/25/2024 GLUCOSE 101 09/19/2022 CHLORIDE 103 05/14/2024 CHLORIDE 104 11/05/2023 CO2 24 05/14/2024 CO2 31.1 11/05/2023 BUN 17 05/14/2024 BUN 17.0 11/05/2023 CREATSERUM 1.11 05/14/2024 CREATSERUM 1.10 11/05/2023 TSH 1.311 04/09/2024 TSH 1.108 12/10/2018 Lab Results Component Value Date WBC 7.73 05/14/2024 WBC 6.66 12/10/2018 HGB 13.3 (L) 05/14/2024 HGB 13.4 12/10/2018 HCT 33 (L) 05/25/2024 HCT 40.6 05/14/2024 HCT 40.7 12/10/2018 PLATELET 216 05/14/2024 PLATELET 220 12/10/2018 MCV 94.0 05/14/2024 MCV 86.6 12/10/2018 Lab Results Component Value Date BNP 145 (H) 04/09/2024 BNP 1,159 11/05/2023 Lab Results Component Value Date PT 14.5 (H) 05/25/2024 PT 16.4 (H) 12/10/2018 PTT 27.2 05/25/2024 PTT 30.4 12/10/2018 INR 1.1 05/25/2024 INR 2.0 10/27/2020 Associated attestation - Derrick Nunez MD - 05/25/2024 8:14 PM EDT Electrophysiology attending physician I have personally interviewed and examined this patient with the electrophysiology [EP] fellow on 05/25/2024 I have reviewed the history and examination and edited these in the note above. I agree with the medical decision and components of the note as edited by me. If you have any additional questions or concerns, please do not hesitate to contact me. Derrick Nunez MD. Professor of Internal Medicine Division of Cardiovascular Medicine, [email or web address] [phone] documented in this encounter [facility] 05-25-2024 Plan of care note Problem: Adult Inpatient Plan of Care Goal: Plan of Care Review Outcome: Progressing Goal: Patient-Specific Goal (Individualized) Outcome: Progressing Goal: Absence of Hospital-Acquired Illness or Injury Outcome: Progressing Goal: Optimal Comfort and Wellbeing Outcome: Progressing Goal: Readiness for Transition of Care Outcome: Progressing Problem: Pain Acute Goal: Optimal Pain Control and Function Outcome: Progressing [facility] 05-25-2024 Surgery Postoperative evaluation and management note Tania Venegas ([id number]) PRE OPERATIVE DIAGNOSIS V-tach [I47.20] POST OPERATIVE DIAGNOSIS V-tach [I47.20] PROCEDURE PERFORMED Procedure(s) (LRB): SYMPATHECTOMY THORACIC ROBOTIC (Bilateral) PRIMARY CLOSURE Yes INTRAOPERATIVE FINDINGS Bilateral robotic assisted thoracoscopic sympathectomy SURGEON Surgeons and Role: * Prince Falk MD - Primary ANESTHESIOLOGIST Anesthesiologist: Eduardo Goldberg DO Engraver Automatic Assisting: Suellen San MD SURGICAL STAFF Bundle Cutter: Srikanth Mark RN; Josie Segura RN Physician Ice Skater: Emerald Harden PA-C Relief Scrub: Aldo Nelson Scrub Person: Benny Celis Fellow: Alyssa George MD COMPLICATIONS None ESTIMATED BLOOD LOSS Minimal SPECIMENS ID Type Source Tests Collected by Time Destination 1 : Left sympathetic nerve chain, T1-T4 Permanent SURG PATH SURG PATH REQUEST Prince Falk MD 05/25/2024 0905 2 : Right sympathetic nerve chain, T1-T4 Permanent SURG PATH SURG PATH REQUEST Prince Falk MD 05/25/2024 [id number] Emerald Harden PA-C May 25, 2024 2:24 PM [facility] 05-25-2024 Nurse Note On admission to , from OR a dual RN initial assessment of skin condition was performed by Naomi Ramos RN and Lisy Bennett RN. Skin Assessment: Skin within defined limits:Yes Pierce Score: 21 LDA Added:No [facility] Note Per Emerald from T/S [facility] chest x-ray clear [facility] 05-25-2024 Surgery Postoperative evaluation and management note Thoracic Surgery Operative Report Date: 05/25/2024 Preoperative Diagnosis: Recurrent VT (ventricular tachycardia) Postoperative Diagnosis: Recurrent VT (ventricular tachycardia) Procedures Performed: 1. Left robotic assisted thoracoscopic sympathectomy (T1-T4) 2. Left multilevel intercostal nerve block 3. Right robotic assisted thoracoscopic sympathectomy (T1-T4) 4. Right multilevel intercostal nerve block Intraoperative Findings: Successful sympathectomy bilaterally, hemostasis achieved bilaterally, no air leaks postoperatively Surgeon: Prince Falk MD Assistants: Alyssa George MD; Emerald Harden PA-C Anesthesia Type: General Anesthesia via double lumen ETT Estimated Blood Loss: 5 ml Intravenous Fluid: See Anesthesia Record. Specimens: Left and right sympathetic trunks T1-T4 Drains: 24Fr meron on left, 24Fr meron on right Complications: none Disposition: The patient tolerated the operation well. He was extubated and transported to the postanesthesia care unit in stable condition. 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 Thoracic Surgery was consulted by Electrophysiology for bilateral VATS sympathectomy/cardiac sympathetic denervation. The risks, benefits, and alternatives were discussed with the patient who consented to the procedure. Description of the procedure: The patient was brought to the [facility] operating room and placed on the OR table in a supine position. After general endotracheal anesthesia was administered, a double-lumen endotracheal tube was safely placed. An arterial line and fragoso were placed. The patient then received Zoll pads over the sternum and the back, which were then connected to external defibrillator. The defibrillator was turned off to DOO and the pacemaker was set to HR 70. The patient was then placed in right lateral decubitus position, and the left chest was prepped and draped in the usual sterile fashion. Time out was performed, verifying correct patient and procedure. Three robotic port sites were placed along the left chest, an 8mm one along the mid axillary line at approximately the 3rd intercostal space, another 8mm port along the posterior axillary line at approximately the 5th intercostal space, and a 8mm port in line with the scapular tip at the 8th interspace. A 12mm airseal accounts payable assistant port was placed in the 9th interspace. The robot was then docked and instruments inserted into the chest. The chest was insufflated. The lung was retracted anteriorly. The thoracic sympathetic chain was then identified over the 1st, 2nd, 3rd, and 4th ribs. The sympathetic chain was dissected from T1 through T4, excising the overlying pleura. An accessory nerve of Kristan was identified and transected using the long hook electrocautery. The sympathetic chain was then transected inferior to the stellate ganglion to the level of T4. This was done with the help of a long hook electrocautery and a Cardiere forceps. Care was taken to ensure adequate hemostasis. Once the thoracic sympathetic chain (T1 through T4) was completely excised, it was removed from the chest cavity and handed off the field as specimen for pathology. Intercostal nerve blocks were performed. Hemostasis was confirmed. A 24Fr meron drain was placed into the chest via the anterior port site and guided to lay posteriorly along the posterior chest wall. The lung was allowed to expand under direct thoracoscopic vision. The ports were removed. The port sites were closed in multiple layers using 2-0 and 4-0 vicryl and topped with steri-strips. The meron drain was sutured in place with ethibond. The meron was connected to a Pleur-evac at negative 10cm H2O. Once the left side was closed the patient was flipped to the opposite side and his right chest was prepped and draped in the usual sterile fashion. We inserted the same series of ports as above and docked the robot. Using a similar technique on entry into the chest, the patient's lung was retracted anteriorly. Again the sympathetic chain was visualized and the overlying pleura was incised on either side parallel to the sympathetic chain from T1 to T4. The sympathteic chain was successfully circumferentially mobilized and the proximal and distal ends were transected and the excised T1 to T4 segment was handed off the field as specimen for pathology. Hemostasis was confirmed. Intercostal nerve blocks were performed. A 24Fr meron drain was placed into the chest via the anterior port site and guided to lay posteriorly along the posterior chest wall. The lung was allowed to inflate without issue. The incisions were closed in multiple layers using 2-0 and 4-0 vicryl and topped with steri-strips. The chest tube stitch was placed. The chest tube was connected to negative 10cm H2O suction. The patient was repositioned supine. He was awakened and extubated. He was transported to the PACU in stable condition. All instrument and sponge counts were correct x2. Dr. Falk was present and scrubbed for the entirety of the surgery. Alyssa George MD Cardiothoracic Surgery, Fellow [facility] Work Phone: 05-25-2024 History and physical note PERIOPERATIVE SURGICAL HISTORY AND PHYSICAL UPDATE Pre-op Diagnoses: V-tach [I47.20] Procedure(s): SYMPATHECTOMY THORACIC ROBOTIC Surgeon(s): Surgeons and Role: * Prince Falk MD - Primary History and Physical Update: Blood pressure 134/76, pulse 62, temperature 97.3 F (36.3 C), temperature source Temporal, resp. rate 18, height 1.854 m (6' 1 ), weight 123.3 kg (271 lb 12.8 oz), SpO2 96%. I have reviewed Tania Venegas's medical, surgical and other pertinent history, and I have updated the medication and allergy information in the computerized patient record. I have examined the patient, reviewed the previous H&P completed on date () and there are no changes. Patient denies any fevers, chills, NV or recent hospitalizations. Physical exam revealed lungs clear to ausculation, heart regular rate and rhythm and no LE edema. Today's surgical history and physical update was completed by Emerald Harden PA-C, 05/25/2024, 6:49 AM. T [facility] 05-25-2024 History and physical note PERIOPERATIVE SURGICAL HISTORY AND PHYSICAL UPDATE Pre-op Diagnoses: V-tach [I47.20] Procedure(s): SYMPATHECTOMY THORACIC ROBOTIC Surgeon(s): Surgeons and Role: * Prince Falk MD - Primary History and Physical Update: Blood pressure 134/76, pulse 62, temperature 97.3 F (36.3 C), temperature source Temporal, resp. rate 18, height 1.854 m (6' 1 ), weight 123.3 kg (271 lb 12.8 oz), SpO2 96%. I have reviewed Tania Venegas's medical, surgical and other pertinent history, and I have updated the medication and allergy information in the computerized patient record. I have examined the patient, reviewed the previous H&P completed on date () and there are no changes. Patient denies any fevers, chills, NV or recent hospitalizations. Physical exam revealed lungs clear to ausculation, heart regular rate and rhythm and no LE edema. Today's surgical history and physical update was completed by Emerald Harden PA-C, 05/25/2024, 6:49 AM. documented in this encounter [facility] 05-20-2024 History of Present illness Narrative Thoracic Surgery Attending Note DATE OF CONSULTATION: 05/14/2024 Mr. Venegas is a 58-year-old male, never smoker, with nonischemic cardiomyopathy who is referred for surgical consideration for bilateral thoracic sympathectomy. The patient was referred by Dr. Alexander Cox for recent VT and VF storm. He is not a candidate for a catheter based ablation and on recent device interrogation on 04/09/2024, he was found to have 58 VT detections. Recent coronary angiography with left heart catheterization on 04/10/2024, revealed nonobstructive coronary artery disease and a cardiac MRI on 04/13/2024 demonstrated severe biventricular systolic dysfunction with predominantly nonischemic fibrosis. His most recent EF is 26% and right ventricular EF was 34%. He is currently on amiodarone and mexiletine. We had a long discussion about the indications for bilateral thoracic sympathectomy. I think the patient is a reasonable surgical candidate and I have suggested we proceed with a bilateral robotic assisted sympathectomy (T1 through T4). Surgery is tentatively scheduled for May 25, 2024. The patient has been instructed to hold warfarin 7 days prior to surgery. All questions and concerns were addressed with the patient, and all the risks, benefits, and alternatives were covered and the patient has consented to surgery. Prince Falk MD, FACS [employer] Chief Division of Thoracic Surgery [facility] ([id number]) JOCScreening Are you able to walk the length of two city blocks (500 feet)? yes Do you have trouble breathing when you lie flat? no Have you had a heart attack, blood clot, stroke, or cardiac stent in the past 3 months? no Do you have a pacemaker or implantable defibrillator? yes If yes, further review required. Are you diabetic? no If so, is your blood sugar over 300 three or more days per week? no Have you had your A1C checked? no If so, is it over 8? no Have you previously had anesthesia? yes If so, were you told that there was trouble placing a breathing tube? no Patient provided with pre-operative educational bag consisting of CHG soap, incentive spirometer, and patient education. Discharge folder provided consisting of use of CHG, how to use incentive spirometer, pain management, and managing opioid induced constipation. Patient verbalized understanding and denies any further questions. documented in this encounter [facility] 05-14-2024 History of Present illness Narrative Patient Education Patient education regarding the following topic(s) was provided on 05/14/2024: plan of care . Indio Salgado PhD Trial lasix 1-2 days to see if helps with shortness of breath Keep scheduled follow up with Dr. Hurtado. Those in attendance for the education included: patient, spouse, and daughter. Barriers in providing the education included: none. The following methods were used in providing the education: explanation. [facility] handouts given included: After visit summary. The response of those in attendance was: states/identifies education topic. The following Clinical Intervention(s) occurred during today s visit: Orthostatic or Coarctation vital signs completed and Extensive teaching provided to patient and or support team regarding plan of care. Subjective History of Present Illness We have had the pleasure of seeing your patient, Tania Venegas who is a 58 y.o. 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 Recently hospitalized from 04/09-04/13/24. Per discharge summary, Hospital course: His INR on admission was 2.2. He received 5 mg of vitamin K.in order to undergo urgent LHC to rule out ischemic etiology of his VT. This was done on LHC on 04/10 24 which revealed: Coronary angiography: The left main is angiographically normal.. The left anterior descending (LAD) has moderate non-obstructive disease throughout with a 50% proximal LAD lesion. The left circumflex (LCx) has mild disease throughout. The right coronary artery is has mild disease throughout with a 40% mid RCA lesion and a 40% distal RCA lesion. Right dominant coronary arterial circulation. EP was consulted. Device interrogation on 04/09 : Percent paced: RA: 17%, GENERAL SCRAP WORKER: 82%. GENERAL SCRAP WORKER pacing is likely low due to ventricular ectopy over the last month. Since 06.05.2023 there have been 2 VF episodes with 1 episode on 04.04.24 @ 16:13 lasting 27 seconds in duration with average ventricular rate of 255 bpm that was treated with 1 scheme of ATP and 1 shock (no EGM available for this episode due to amount of alert worthy episodes since shock occurred) and the other episode on 04.06.24 @ 23:07 treated with 1 scheme of ATP with available EGM showing VT in the VF zone of 204 bpm lasting 10 seconds in duration successfully converted to sinus with BiVP. There were additionally 6 aborted shocks, again no EGM's available due to amount of notifications. There have been 58 VT detections (of note, these are all monitor as patient only has VF zone programmed >200 bpm), with all available EGM's showing VT lasting 9 seconds to 1 minute 30 seconds with average ventricular rates of 164 bpm - 190 bpm. There also have been 32 NSVT detections with available EGM's showing NSVT lasting 6-10 seconds in duration with average ventricular rates of 167-202 bpm. It is noted that most of these episodes happened in clusters on March 29, and April 04-today. Additionally there have been 519 atrial mode switches with available EGM's showing AF with BiVP lasting 28 seconds - 6 hours in duration. Total AT/AF burden is <1%. He was started on IV amio and transition to oral amio load: 400 mg tid through 04/17 then 400 mg daily through 05/17 then 200 mg daily thereafter. He was started on mexiletine 200 mg q 8 hours. He had an MRI done prior to discharge to to help determine suitability for sympathetic denervation or endo- and /or epicardial VT ablation. He has a follow antiarrhythmic clinic on 07/09/24 He will follow up with EP regarding ongoing treatment plans. chronic systolic heart failure (HFrEF) / hypertensive heart disease and non-ischemic cardiomyopathy (hx of Non-Hodgkins lymphoma 2006, 2/2 anthracycline toxicity) NYHA class II, ACC/AHA C EF 31%, LVIDD: Lab Results Component Value Date BNP 145 (H) 04/09/2024 BNP 1,159 11/05/2023 Date of Diagnosis: 2015 s/p anthracycline toxicity Diuresis: 40mg prn Beta blockade: Toprol CXL 50mg AM/25mg PM ACEi / ARB / ARNI: Entresto 24/26mg PO BID --> increase to 49/51mg.->cost prohibitive. Will discharge on losartan 50 mg daily IMRA: Eplerenone 25mg PO daily SGLT2i: none, due to nausea with jardiance and farxiga too expensive Vasodilator: Inotrope: ICD / GENERAL SCRAP WORKER: 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 Seen by Dr. Falk prior to our visit with the plan for robotic assisted thoracoscopic bilateral sympathetic denervation on May 25, 2024. Doing OK. Maybe a little more SOB, not sure if related to heat/high humidity. In cardiac rehab locally. Does report nausea and head fogginess related to mexiletine, spoke with Dr. Cox last week and decreased dose which helped some. On follow up today he denies chest pain, palpitations, near-syncope, syncope, orthopnea, paroxysmal nocturnal dyspnea, claudication, lower extremity edema. he has been able to take all medications as prescribed, and is closely monitoring sodium and fluid restriction. 10 point ROS is negative except as noted above. Family/Social medical history reviewed in EMR. Current Outpatient Medications Medication Sig Acetaminophen 325 MG tablet Take 2 tablets by mouth every 4 hours as needed. AMIOdarone 200 MG tablet Take two tablets by mouth three times daily through 04/17. THEN, take two tablets daily through 05/17. THEN, take one tablet daily thereafter. aspirin 81 MG Chew Tab chewable tablet Chew 1 tablet daily. eplerenone 25 MG tablet Take 1 tablet by mouth daily. furOSEmide 40 MG tablet Take 1 tablet by mouth daily as needed. Losartan 50 MG tablet Take 1 tablet by mouth daily. Metoprolol succinate 50 MG tablet XL 50mg QAM + 25mg QPM mexiletine 200 MG capsule Take 1 capsule by mouth every 8 hours. rosuvastatin 10 MG tablet Take 1 tablet by mouth daily. Slow Magnesium/Calcium 70-[address] Take 1 tablet by mouth daily. warfarin 5 MG tablet Take 1 tablet by mouth every evening at 6 PM. INR managed at [facility] Objective Review of Systems Vitals: Blood pressure 155/89, pulse 61, resp. rate 16, height 1.854 m (6' 1 ), weight 120.6 kg (265 lb 12.8 oz), SpO2 95%. Body mass index is 35.07 kg/m . Wt Readings from Last 3 Encounters: 05/14/24 120.6 kg (265 lb 12.8 oz) 05/14/24 121.7 kg (268 lb 6.4 oz) 04/13/24 117.3 kg (258 lb 8 oz) Physical Exam Constitutional: General: He is not in acute distress. Appearance: He is not diaphoretic. HENT: Head: Normocephalic and atraumatic. Neck: Thyroid: No thyromegaly. Vascular: No JVD. Cardiovascular: Rate and Rhythm: Normal rate and regular rhythm. Chest Wall: PMI is not displaced. Pulses: Normal pulses. Radial pulses are 2+ on the right side and 2+ on the left side. Dorsalis pedis pulses are 2+ on the right side and 2+ on the left side. Posterior tibial pulses are 2+ on the right side and 2+ on the left side. Heart sounds: Normal heart sounds, S1 normal and S2 normal. No murmur heard. No friction rub. No gallop. No S3 or S4 sounds. Pulmonary: Effort: Pulmonary effort is normal. No respiratory distress. Breath sounds: Normal breath sounds. No wheezing or rales. Abdominal: General: Bowel sounds are normal. There is no distension. Palpations: Abdomen is soft. Tenderness: There is no abdominal tenderness. Musculoskeletal: General: Normal range of motion. Skin: General: Skin is warm and dry. Neurological: Mental Status: He is alert and oriented to person, place, and time. Neurological Exam Mental Status Alert. Oriented to person, place, and time. Lab Results Component Value Date SODIUM 136 04/13/2024 SODIUM 140 11/05/2023 POTASSIUM 4.3 04/13/2024 POTASSIUM 3.9 11/05/2023 CHLORIDE 105 04/13/2024 CHLORIDE 104 11/05/2023 CO2 22 04/13/2024 CO2 31.1 11/05/2023 BUN 19 04/13/2024 BUN 17.0 11/05/2023 GLUCOSE 94 04/13/2024 GLUCOSE 101 09/19/2022 Lab Results Component Value Date CHOLESTEROL 187 04/09/2024 HDL 36 (L) 04/09/2024 CHOLTOTALHDL 5.2 (H) 04/09/2024 . Lab Results Component Value Date WBC 7.73 05/14/2024 WBC 6.66 12/10/2018 MCV 94.0 05/14/2024 MCV 86.6 12/10/2018 Lab Results Component Value Date TSH 1.311 04/09/2024 TSH 1.108 12/10/2018 Lab Results Component Value Date ALT 8 (L) 04/09/2024 ALT 7 (L) 12/10/2018 AST 20 04/09/2024 AST 25 12/10/2018 Lab Results Component Value Date HGBA1C 5.7 (H) 04/09/2024 VO2 01/10/23: There is a mild reduction in cardiopulmonary exercise capacity. Peak VO2 20.0, which is 77% predicted. RER: (1.24), excellent exercise effort. Ventilatory efficiency is normal. Ve/VCO2 30. Estimated workload 8 METS. The resting blood pressure of 116/69 mmHg kyle to a maximum blood pressure of 130/66 mmHg. ECG results indeterminate due to a paced rhythm. Cardiac MRI 04/13/24: LEFT VENTRICLE: LV cavity is mildly enlarged. LV systolic function is severely decreased globally with mid inferior akiesis. Quantitative LVEF 26 %. VIABILITY: Late gadolinium enhancement imaging demonstrates prominent subepicardial to midwall enhancement in the basal anterior, anteroseptal and inferoseptal ricketts in a non-ischemic fibrosis pattern, as well as more subendocardial enhancement in the basal inferior and inferolateral ricketts. There is also a focus of near transmural fibrosis in the mid inferior wall. RIGHT VENTRICLE: RV cavity size is normal. RV systolic function is moderately decreased globally. RV pacemaker/defibrillator wire noted. Quantitative RVEF 34 %. LV/RV SEPTUM: There is paradoxical septal motion (paced). LEFT ATRIUM: LA is mildly enlarged. RIGHT ATRIUM: RA cavity size is normal. RA pacemaker/defibrillator wire noted. PLEURAL EFFUSION: There is no pleural effusion. AORTIC VALVE: Peak aortic valve velocity 1.5 m/sec. MITRAL VALVE: There is trivial mitral regurgitation. TRICUSPID VALVE: There is trivial tricuspid regurgitation. AORTIC ROOT: The visualized aortic root is normal [facility] 04/10/24: Coronary angiography: The left main is angiographically normal.. The left anterior descending (LAD) has moderate non-obstructive disease throughout with a 50% proximal LAD lesion. The left circumflex (LCx) has mild disease throughout. The right coronary artery is has mild disease throughout with a 40% mid RCA lesion and a 40% distal RCA lesion. Right dominant coronary arterial circulation. Left heart catheterization: The LVEDP is normal at 12 mmHg. There is no gradient on LV-Ao pullback. 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 He is presently ACC stage C/NYHA class II. Warm/dry. Our plan is as follows: -Plan robotic assisted thoracoscopic bilateral sympathetic denervation on May 25, 2024. -Following closely with device clinic/EP/antiarrhythmic clinic: on amiodarone, mexiletine, warfarin -continue GDMT including losartan 50mg daily (ARNI cost prohibitive), toprol xl 50/25mg, eplerenone 25mg daily. -consider folding in SGLT2i -continue local cardiac rehab -information given on Dr. Indio Salgado PhD seeing recent ICD firings -trial prn lasix the next day or two to see if helps with SOB. He will follow-up 4-6 months and is to notify the office for any cardiovascular concerns prior to then. A written summary of today's visit as well as an updated medication list were provided, and the patient verbalizes understanding of today's plan. Please do not hesitate to contact us with any questions. This patient was seen independently in the nurse practitioner clinic and Dr. Hurtado was available for consultation. documented in this encounter [facility] 05-14-2024 Instructions Maria Elena Melendrez RN - 05/14/2024 10:00 AM EDT The following instructions were given today: Indio Salgado PhD Trial lasix 1-2 days to see if helps with shortness of breath Keep scheduled follow up with Dr. Hurtado. Your after visit summary (AVS) is viewable in [facility] My Chart. Call RN if you have cardiac questions/concerns M-F 8 to 4:30 ; office # [phone], option 6, then option 2. Guidelines for home management: 1. Continue to monitor weight first thing each morning. 2. Report to the CHF CLINIC ([phone]) any significant weight change. Remember that weight [...] to have labs/tests run outside of the [facility] and you do not hear from us 1-2 days after they are performed, you must call us to ensure we received the results. Office fax # [phone]. No news does not necessarily mean that your tests are normal, it could mean we did not get the results. For questions/updates: please provide your name with spelling, date of and question or update All calls are prioritized and responses researched, if possible, prior to calls being returned. Call Scheduling for any appointment/procedure verification or changes [phone], option 7 or [facility] Heart Schedulers at [phone], option 1. documented in this encounter [facility] 05-14-2024 History and physical note History and Physical Patient: Tania Venegas Date: 05/14/2024 9:01 AM Attending Physician: Prince Falk MD Chief Complaint: Chief Complaint Patient presents with New Patient fatigue HPI: Tania Venegas is a 58 y.o. 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 He was referred by Alexander Cox MD for surgical evaluation after recent VT/VF storm for possible cardiac sympathetic denervation. Patient recently admitted (discharged 04/13) after being shocked by his ICD on 04/04/24 resulting in LOC. Device interrogation on 04/09 with 58 VT detections. Coronary angiography with [facility] completed on 04/10/24 revealed non-obstructive coronary artery disease. Cardiac MRI 04/13/24 demonstrated severe biventricular systolic dysfunction with predominantly non-ischemic fibrosis. LVEF 26% and RVEF 34%. He was discharged home on amiodarone and mexiletine. Today patient reports experiencing heart palpitations and light headedness followed by LOC after most recent shock delivered that lead to him being admitted. Endorses chronic SOB that requires him to take frequent breaks. Denies chest pain, cough, hemoptysis, fevers/chills, night sweats, and pain. Past Medical/Surgical History Past Medical History: Diagnosis Date A-fib Arrhythmia Arthritis Atherosclerotic heart disease [place] coronary artery w/angina pectoris 04/10/2024 Bradycardia Carcinoma of colon Chest pain secondary to pericarditis CHF (congestive heart failure) Diastolic dysfunction Hypertension Lymphoma Nonischemic congestive cardiomyopathy Pacemaker Restless legs Sleep apnea Systolic dysfunction Systolic heart failure s/p biventricular implantable cardioveter defibrillator placement Past Surgical History: Procedure Laterality Date ATRIAL FIBRILLATION ABLATION N/A 07/19/2017 Laterality: N/A; Surgeon: Alexander Cox MD; Location: [facility] CHOLECYSTECTOMY COLECTOMY FOOT SURGERY Bilateral HIP REPLACEMENT Bilateral ICD PLACEMENT Oncology History No history exists. He is not on home oxygen He does not have a history of stroke. Family History Family History Problem Relation Age of Onset Other - Specify Mother Accident Colorectal Cancer Father Other - Specify Father COPD Social History Social History Tobacco Use Smoking status: Never Smokeless tobacco: Never Substance Use Topics Alcohol use: Yes Comment: occasionally few beers-not weekly He does not have a history of daily use of narcotics for >30 days prior to this visit Living arrangement at the time of this visit: With family Medications Current Outpatient Medications Medication Sig Acetaminophen 325 MG tablet Take 2 tablets by mouth every 4 hours as needed. AMIOdarone 200 MG tablet Take two tablets by mouth three times daily through 04/17. THEN, take two tablets daily through 05/17. THEN, take one tablet daily thereafter. aspirin 81 MG Chew Tab chewable tablet Chew 1 tablet daily. eplerenone 25 MG tablet Take 1 tablet by mouth daily. furOSEmide 40 MG tablet Take 1 tablet by mouth daily as needed. Losartan 50 MG tablet Take 1 tablet by mouth daily. Metoprolol succinate 50 MG tablet XL 50mg QAM + 25mg QPM mexiletine 200 MG capsule Take 1 capsule by mouth every 8 hours. rosuvastatin 10 MG tablet Take 1 tablet by mouth daily. Slow Magnesium/Calcium 70-[address] Take 1 tablet by mouth daily. warfarin 5 MG tablet Take 1 tablet by mouth every evening at 6 PM. INR managed at [facility] He is not on chronic immunosuppressive therapy/corticosteroids >10 days at the time of this visit He is on chronic anticoagulation >10 days at the time of this visit Allergies/Immunizations Allergies: Seasonal [*seasonal] Immunizations: There is no immunization history on file for this patient. Review of Systems At the time of the visit patient reports: as noted in [facility]. All other systems queried and are negative. OBJECTIVE: Physical Exam Blood pressure 154/83, pulse 75, temperature 97.4 F (36.3 C), temperature source Oral, resp. rate 16, height 1.854 m (6' 1 ), weight 121.7 kg (268 lb 6.4 oz), SpO2 97%. on room air. Constitutional: he is alert, oriented, well-developed, well-nourished, and in no acute distress. HEENT: Oropharynx is clear and moist. Extraocular motions are normal. Neck: Neck supple. No tracheal deviation present. No thyromegaly present. Cardiovascular: Normal rate and regular rhythm. No murmur heard. Pulmonary/Chest: Breathing non-labored. Lung sounds normal without wheezes or rales. He exhibits no crepitus. Abdomen: Abdomen soft, non-tender, non-distended. Bowel sounds present in all four quadrants. Musculoskeletal: He exhibits no edema. Lymphadenopathy: He has no cervical adenopathy. Neurological: He is alert and oriented. Skin: No rash noted. ECO Imaging/Procedures/Results Review: Personal review completed of: MRI CARDIAC WITH CONTRAST W/ VELOCITY FLOW MAP 04/13/24: Final Impression: Severe biventricular systolic dysfunction with predominantly non-ischemic fibrosis. Findings are non-specific, but fibrosis pattern can be seen in prior myocarditis or cardiac sarcoidosis. CORONARY ANGIOGRAM WITH LEFT HEART CATH 04/10/24: Coronary angiography: The left main is angiographically normal.. The left anterior descending (LAD) has moderate non-obstructive disease throughout with a 50% proximal LAD lesion. The left circumflex (LCx) has mild disease throughout. The right coronary artery is has mild disease throughout with a 40% mid RCA lesion and a 40% distal RCA lesion. Right dominant coronary arterial circulation. Left heart catheterization: The LVEDP is normal at 12 mmHg. There is no gradient on LV-Ao pullback. ASSESSMENT/PLAN: 58 y.o. 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 He was referred by Alexander Cox MD for surgical evaluation for possible cardiac sympathetic denervation after recent VT/VF storm. - Patient was seen and evaluated by myself and Dr. Falk today in clinic. We reviewed all relevant imaging and data. - Consent obtained and labs ordered for robotic assisted thoracoscopic bilateral sympathetic denervation. We will scheduled patient for surgery May 25, 2024. - Patient instructed to stop taking warfarin 7 days prior to surgery. The patient was seen and plan of care was discussed with Prince Falk MD. Jordana Cooley, HORSE TRAINER-FUNERAL HOME ASSOCIATE #[id number] T [facility] 05-14-2024 History and physical note History and Physical Patient: Tania Venegas Date: 05/14/2024 9:01 AM Attending Physician: Prince Falk MD Chief Complaint: Chief Complaint Patient presents with New Patient fatigue HPI: Tania Venegas is a 58 y.o. 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 He was referred by Alexander Cox MD for surgical evaluation after recent VT/VF storm for possible cardiac sympathetic denervation. Patient recently admitted (discharged 04/13) after being shocked by his ICD on 04/04/24 resulting in LOC. Device interrogation on 04/09 with 58 VT detections. Coronary angiography with [facility] completed on 04/10/24 revealed non-obstructive coronary artery disease. Cardiac MRI 04/13/24 demonstrated severe biventricular systolic dysfunction with predominantly non-ischemic fibrosis. LVEF 26% and RVEF 34%. He was discharged home on amiodarone and mexiletine. Today patient reports experiencing heart palpitations and light headedness followed by LOC after most recent shock delivered that lead to him being admitted. Endorses chronic SOB that requires him to take frequent breaks. Denies chest pain, cough, hemoptysis, fevers/chills, night sweats, and pain. Past Medical/Surgical History Past Medical History: Diagnosis Date A-fib Arrhythmia Arthritis Atherosclerotic heart disease [place] coronary artery w/angina pectoris 04/10/2024 Bradycardia Carcinoma of colon Chest pain secondary to pericarditis CHF (congestive heart failure) Diastolic dysfunction Hypertension Lymphoma Nonischemic congestive cardiomyopathy Pacemaker Restless legs Sleep apnea Systolic dysfunction Systolic heart failure s/p biventricular implantable cardioveter defibrillator placement Past Surgical History: Procedure Laterality Date ATRIAL FIBRILLATION ABLATION N/A 07/19/2017 Laterality: N/A; Surgeon: Alexander Cox MD; Location: [facility] CHOLECYSTECTOMY COLECTOMY FOOT SURGERY Bilateral HIP REPLACEMENT Bilateral ICD PLACEMENT Oncology History No history exists. He is not on home oxygen He does not have a history of stroke. Family History Family History Problem Relation Age of Onset Other - Specify Mother Accident Colorectal Cancer Father Other - Specify Father COPD Social History Social History Tobacco Use Smoking status: Never Smokeless tobacco: Never Substance Use Topics Alcohol use: Yes Comment: occasionally few beers-not weekly He does not have a history of daily use of narcotics for >30 days prior to this visit Living arrangement at the time of this visit: With family Medications Current Outpatient Medications Medication Sig Acetaminophen 325 MG tablet Take 2 tablets by mouth every 4 hours as needed. AMIOdarone 200 MG tablet Take two tablets by mouth three times daily through 04/17. THEN, take two tablets daily through 05/17. THEN, take one tablet daily thereafter. aspirin 81 MG Chew Tab chewable tablet Chew 1 tablet daily. eplerenone 25 MG tablet Take 1 tablet by mouth daily. furOSEmide 40 MG tablet Take 1 tablet by mouth daily as needed. Losartan 50 MG tablet Take 1 tablet by mouth daily. Metoprolol succinate 50 MG tablet XL 50mg QAM + 25mg QPM mexiletine 200 MG capsule Take 1 capsule by mouth every 8 hours. rosuvastatin 10 MG tablet Take 1 tablet by mouth daily. Slow Magnesium/Calcium 70-[address] Take 1 tablet by mouth daily. warfarin 5 MG tablet Take 1 tablet by mouth every evening at 6 PM. INR managed at [facility] He is not on chronic immunosuppressive therapy/corticosteroids >10 days at the time of this visit He is on chronic anticoagulation >10 days at the time of this visit Allergies/Immunizations Allergies: Seasonal [*seasonal] Immunizations: There is no immunization history on file for this patient. Review of Systems At the time of the visit patient reports: as noted in [facility]. All other systems queried and are negative. OBJECTIVE: Physical Exam Blood pressure 154/83, pulse 75, temperature 97.4 F (36.3 C), temperature source Oral, resp. rate 16, height 1.854 m (6' 1 ), weight 121.7 kg (268 lb 6.4 oz), SpO2 97%. on room air. Constitutional: he is alert, oriented, well-developed, well-nourished, and in no acute distress. HEENT: Oropharynx is clear and moist. Extraocular motions are normal. Neck: Neck supple. No tracheal deviation present. No thyromegaly present. Cardiovascular: Normal rate and regular rhythm. No murmur heard. Pulmonary/Chest: Breathing non-labored. Lung sounds normal without wheezes or rales. He exhibits no crepitus. Abdomen: Abdomen soft, non-tender, non-distended. Bowel sounds present in all four quadrants. Musculoskeletal: He exhibits no edema. Lymphadenopathy: He has no cervical adenopathy. Neurological: He is alert and oriented. Skin: No rash noted. ECO Imaging/Procedures/Results Review: Personal review completed of: MRI CARDIAC WITH CONTRAST W/ VELOCITY FLOW MAP 04/13/24: Final Impression: Severe biventricular systolic dysfunction with predominantly non-ischemic fibrosis. Findings are non-specific, but fibrosis pattern can be seen in prior myocarditis or cardiac sarcoidosis. CORONARY ANGIOGRAM WITH LEFT HEART CATH 04/10/24: Coronary angiography: The left main is angiographically normal.. The left anterior descending (LAD) has moderate non-obstructive disease throughout with a 50% proximal LAD lesion. The left circumflex (LCx) has mild disease throughout. The right coronary artery is has mild disease throughout with a 40% mid RCA lesion and a 40% distal RCA lesion. Right dominant coronary arterial circulation. Left heart catheterization: The LVEDP is normal at 12 mmHg. There is no gradient on LV-Ao pullback. ASSESSMENT/PLAN: 58 y.o. 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 He was referred by Alexander Cox MD for surgical evaluation for possible cardiac sympathetic denervation after recent VT/VF storm. - Patient was seen and evaluated by myself and Dr. Falk today in clinic. We reviewed all relevant imaging and data. - Consent obtained and labs ordered for robotic assisted thoracoscopic bilateral sympathetic denervation. We will scheduled patient for surgery May 25, 2024. - Patient instructed to stop taking warfarin 7 days prior to surgery. The patient was seen and plan of care was discussed with Prince Falk MD. JT Parra #[id number] documented in this encounter [facility] 05-14-2024 Instructions JT Parra - 05/14/2024 8:45 AM EDT Patient Medication Instructions: Here is a list of your current medications we have on file: Current Outpatient Medications Medication Sig Acetaminophen 325 MG tablet Take 2 tablets by mouth every 4 hours as needed. AMIOdarone 200 MG tablet Take two tablets by mouth three times daily through 04/17. THEN, take two tablets daily through 05/17. THEN, take one tablet daily thereafter. aspirin 81 MG Chew Tab chewable tablet Chew 1 tablet daily. eplerenone 25 MG tablet Take 1 tablet by mouth daily. furOSEmide 40 MG tablet Take 1 tablet by mouth daily as needed. Losartan 50 MG tablet Take 1 tablet by mouth daily. Metoprolol succinate 50 MG tablet XL 50mg QAM + 25mg QPM mexiletine 200 MG capsule Take 1 capsule by mouth every 8 hours. rosuvastatin 10 MG tablet Take 1 tablet by mouth daily. Slow Magnesium/Calcium 70-[address] Take 1 tablet by mouth daily. warfarin 5 MG tablet Take 1 tablet by mouth every evening at 6 PM. INR managed at [facility] - Only take aspirin, amiodarone, metoprolol, and rosuvastatin on the morning of surgery with a sip of water. Do not take any of your other medications on the morning of surgery. - If you use inhalers, it is ok to use them as prescribed the morning of surgery. - STOP taking furosemide and elperenone 2 days prior to surgery. - STOP taking Losartan 1 day prior to surgery. -STOP taking blood thinners Warfarin (Coumadin) 7 days prior to surgery. - STOP taking Herbal Medication (including fish oil ([place]-3), garlic, Glucosamine - Chondroitin ,gingko, ginseng, Vitamin E) 2 weeks before surgery. - STOP taking ibuprofen, Advil, Motrin, naproxen, or Aleve for 7days before surgery. - STOP taking blood thinners such as Apixaban (Eliquis) or Rivaroxaban (Xarelto) 3 days before surgery. - Take all other medications up until the day before surgery. documented in this encounter [facility] 04-13-2024 Hospital course Narrative Discharge Summary Name: Tania Venegas Age: 58 y.o. Birthday: 1965 Admit Date: 04/09/2024 2:53 PM Discharge Date: 04/13/24 Discharge Time: > 30 minutes reviewing medication changes and follow up plans Discharge Unit: [facility] Admission Information Admitting Physician: Emmy Moura MD Discharge Information Discharge Physician: Sara Romero MD Problem List Active Hospital Problems Diagnosis Ventricular tachycardia Essential hypertension Atherosclerotic heart disease [place] coronary artery w/angina pectoris ICD (implantable cardioverter-defibrillator) discharge Obesity (BMI 30.0-34.9) BRANNON on CPAP PVC's (premature ventricular contractions) Paroxysmal atrial fibrillation Resolved Hospital Problems No resolved problems to display. Brief Summary of Hospital Course for Discharge Summary: Tania Venegas is a 58 y.o. 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 Patient reported a shock delivered on 04/04 while he was ambulating at home and had LOC. Patient denied hitting his head, CP, diaphoresis, N/V, SOB. He was seen by HF in [place] on 02/26/24 with no med changes and VO2 planned. He is cardiac rehab 3 days a week for a few weeks and thinks he is improving in activity tolerance. He is taking lasix 40 mg prn which is about every 1.5 weeks. Weight ranges 260-265 lbs. He has less GRAF but reports lightheaded episodes for a few seconds that can occur anytime (with rest and not consistently with standing). However, he has been dizzy very frequently in the past few weeks, even this morning. He noticed this same feeling on Saturday, 04/04 before he was shocked. BP at home is running 100/70 mmHg. Good appetite and finishes meals. 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 No chest pain/pressure/discomfort, orthopnea, no PND, stable peripheral edema, no nausea/vomiting. He uses CPAP Hospital course: His INR on admission was 2.2. He received 5 mg of vitamin K.in order to undergo urgent LHC to rule out ischemic etiology of his VT. This was done on LHC on 04/10 24 which revealed: Coronary angiography: The left main is angiographically normal.. The left anterior descending (LAD) has moderate non-obstructive disease throughout with a 50% proximal LAD lesion. The left circumflex (LCx) has mild disease throughout. The right coronary artery is has mild disease throughout with a 40% mid RCA lesion and a 40% distal RCA lesion. Right dominant coronary arterial circulation. EP was consulted. Device interrogation on 04/09 : Percent paced: RA: 17%, GENERAL SCRAP WORKER: 82%. GENERAL SCRAP WORKER pacing is likely low due to ventricular ectopy over the last month. Since 06.05.2023 there have been 2 VF episodes with 1 episode on 04.04.24 @ 16:13 lasting 27 seconds in duration with average ventricular rate of 255 bpm that was treated with 1 scheme of ATP and 1 shock (no EGM available for this episode due to amount of alert worthy episodes since shock occurred) and the other episode on 04.06.24 @ 23:07 treated with 1 scheme of ATP with available EGM showing VT in the VF zone of 204 bpm lasting 10 seconds in duration successfully converted to sinus with BiVP. There were additionally 6 aborted shocks, again no EGM's available due to amount of notifications. There have been 58 VT detections (of note, these are all monitor as patient only has VF zone programmed >200 bpm), with all available EGM's showing VT lasting 9 seconds to 1 minute 30 seconds with average ventricular rates of 164 bpm - 190 bpm. There also have been 32 NSVT detections with available EGM's showing NSVT lasting 6-10 seconds in duration with average ventricular rates of 167-202 bpm. It is noted that most of these episodes happened in clusters on March 29, and April 04-today. Additionally there have been 519 atrial mode switches with available EGM's showing AF with BiVP lasting 28 seconds - 6 hours in duration. Total AT/AF burden is <1%. He was started on IV amio and transition to oral amio load: 400 mg tid through 04/17 then 400 mg daily through 05/17 then 200 mg daily thereafter. He was started on mexiletine 200 mg q 8 hours. He had an MRI done prior to discharge to to help determine suitability for sympathetic denervation or endo- and /or epicardial VT ablation. He has a follow antiarrhythmic clinic on 07/09/24 He will follow up with EP regarding ongoing treatment plans. chronic systolic heart failure (HFrEF) / hypertensive heart disease and non-ischemic cardiomyopathy (hx of Non-Hodgkins lymphoma 2006, 2/2 anthracycline toxicity) NYHA class II, ACC/AHA C EF 31%, LVIDD: Lab Results Component Value Date BNP 145 (H) 04/09/2024 BNP 1,159 11/05/2023 Date of Diagnosis: 2015 s/p anthracycline toxicity Diuresis: 40mg prn Beta blockade: Toprol CXL 50mg AM/25mg PM ACEi / ARB / ARNI: Entresto 24/26mg PO BID --> increase to 49/51mg.->cost prohibitive. Will discharge on losartan 50 mg daily IMRA: Eplerenone 25mg PO daily SGLT2i: none, due to nausea with jardiance and farxiga too expensive Vasodilator: Inotrope: ICD / GENERAL SCRAP WORKER: 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 Chronic medical problems: Paroxysmal A-fib s/p ablations 2016 Afib ablation c/b perforation, Cryo + CTI 06/2017, Repeat CTI ablation 12/2020. On admit SR with frequent PVCs [id number] Score for Atrial Fibrillation Stroke Risk Age in Years: <65 Sex: Male CHF History: Yes Hypertension History: Yes Stroke/TIA/Thromboembolism History: No Vascular Disease History: No Diabetes History: No [id number] Score: 2 - Hold Coumadin, received vitamin K 5mg for urgent C -->> [facility] completed 04/10 -INR 1.9 (04/10) -Restart coumadin 7.5mg 04/10 PM, INR goal 2-3 - At home takes Coumadin 5mg on M,W,F/ 7.5mg on other days. - continue Toprol XL INR at discharge was 1.2. He will resume his home dose and follow up with his local coumadin clinic. [place] Coronary Artery Disease Previous [facility] 2015 and 2018 - with non-obstructive disease. Noted LAD 30-40% ostial stenosis, 30% mid vessel stenosis 30%, minimal circumflex disease. [facility] 04/10/24 --> The left anterior descending (LAD) has moderate non-obstructive disease throughout with a 50% proximal LAD lesion. LCx mild disease, RCS with mild disease throughout with a 40% mid RCA lesion and 40% distal RCA lesion. Beta Ashley: Toprol XL 50mgAM/ 25mg PM Statin: Crestor 10mg daily Anti Platelet:ASA 81mg Anti Anginal: Hypertension -Meds as above Hyperlipidemia LDL 92 on admission - patient currently on crestor 10mg daily -Increase to crestor 20mg daily -Will recheck lipid panel in 3 months Lab Results Component Value Date CHOLESTEROL 187 04/09/2024 TRIG 294 (H) 04/09/2024 HDL 36 (L) 04/09/2024 LDLCALC 92 04/09/2024 BP 101/66 (BP Location: Left arm, BP Position: Sitting) Pulse 90 Temp 98.8 F (37.1 C) (Oral) Resp 18 Ht 1.854 m (6' 1 ) Wt 117.3 kg (258 lb 8 oz) Comment: standing SpO2 92% BMI 34.10 kg/m Smoking Status Never Physical Exam Constitutional: No distress. Neck: No JVD present. Cardiovascular: Normal rate, regular rhythm, S1 normal and S2 normal. Pulses: Radial pulses are 2+ on the right side and 2+ on the left side. Warm and dry Pulmonary/Chest: Effort normal and breath sounds normal. He has no wheezes. He has no rales. Abdominal: Soft. Bowel sounds are normal. He exhibits no distension. Musculoskeletal: General: No edema. Cervical back: Normal range of motion and neck supple. Neurological: He is alert and oriented to person, place, and time. Skin: Skin is warm and dry. Brief Summary of Consults for Discharge Summary: Brief Summary of Procedures and Imaging for Discharge Summary: Summary of last selected lab results and date obtained: Lab Results Component Value Date WBC 8.16 04/13/2024 HGB 14.1 04/13/2024 HCT 42.3 04/13/2024 PLATELET 219 04/13/2024 MCV 93.4 04/13/2024 Lab Results Component Value Date SODIUM 136 04/13/2024 POTASSIUM 4.3 04/13/2024 CHLORIDE 105 04/13/2024 CO2 22 04/13/2024 BUN 19 04/13/2024 CREATSERUM 1.08 04/13/2024 GLUCOSE 94 04/13/2024 Lab Results Component Value Date ALT 8 (L) 04/09/2024 AST 20 04/09/2024 ALKPHOS 66 04/09/2024 BILITOTAL 0.5 04/09/2024 BILIDIRECT 0.1 04/09/2024 Brief Summary of Labs for Discharge Summary: Discharge Orders AMB REFERRAL TO CARDIAC REHAB Current Outpatient Meds: Medication List for when you go home START taking these medications Morning Afternoon Evening Bedtime As Needed Acetaminophen 325 MG tablet Take 2 tablets by mouth every 4 hours as needed. Commonly known as: TYLENOL Losartan 50 MG TABS Take 1 tablet by mouth daily. Commonly known as: COZAAR mexiletine 200 MG CAPS Take 1 capsule by mouth every 8 hours. Commonly known as: MEXITIL Last time this was given: 200 mg on April 13, 2024 2:05 PM CHANGE how you take these medications Morning Afternoon Evening Bedtime As Needed AMIOdarone 200 MG TABS Take two tablets by mouth three times daily through 04/17. THEN, take two tablets daily through 05/17. THEN, take one tablet daily thereafter. Commonly known as: PACERONE What changed: The quantity you have reported taking of this medication has changed How you take your medication has changed How often you have reported taking this medication has changed additional instructions These instructions start on April 18, 2024. If you are unsure what to do until then, ask your doctor or other care provider. Last time this was given: 400 mg on April 13, 2024 2:06 PM Start taking on: April 18, 2024 CONTINUE taking these medications Morning Afternoon Evening Bedtime As Needed aspirin 81 MG CHEW chewable tablet Chew 1 tablet daily. Last time this was given: 81 mg on April 13, 2024 8:28 AM eplerenone 25 MG TABS Take 1 tablet by mouth daily. Doctor's comments: Dose increase Commonly known as: INSPRA Last time this was given: 25 mg on April 13, 2024 8:28 AM furOSEmide 40 MG TABS Take 1 tablet by mouth daily as needed. Commonly known as: LASIX Last time this was given: 40 mg on April 09, 2024 8:22 PM Metoprolol succinate 50 MG tablet XL 50mg QAM + 25mg QPM Commonly known as: TOPROL-XL Last time this was given: 50 mg on April 13, 2024 8:27 AM Rosuvastatin 10 MG TABS Take 1 tablet by mouth daily. Commonly known as: CRESTOR Last time this was given: 20 mg on April 12, 2024 8:25 PM Slow Magnesium/Calcium 70-[address] Take 1 tablet by mouth daily. Generic drug: Magnesium Cl-Calcium Carbonate warfarin 5 MG tablet Take 1 tablet by mouth every evening at 6 PM. INR managed at [facility] Commonly known as: COUMADIN Last time this was given: 7.5 mg on April 12, 2024 6:05 PM STOP taking these medications Entresto 49-51 MG TABS Generic drug: sacubitril-valsartan Medication Instructions: Plan for Warfarin (Coumadin) after Discharge - Transition of Care Indication:AF INR Goal:2-3 Date 04/10 04/11 04/12 04/13 Warfarin Dose 7.5 7.5 7.5 7.5 Patient follows locally for INR management. He will resume his home warfarin dosing post discharge He will have a follow up INR on 04/16 Lab Results Component Value Date INR 1.2 (H) 04/13/2024 INR 1.2 (H) 04/12/2024 INR 1.3 (H) 04/11/2024 PT 15.5 (H) 04/13/2024 PT 14.8 (H) 04/12/2024 PT 16.0 (H) 04/11/2024 Follow-up: Other [facility] [address] [facility] [address] Follow up You've been referred to cardiac rehab, Please call if you have any questions Upcoming Appointments (up to five)-Some appointments for Medical Center outpatient clinics or diagnostic testing locations are not displayed below Provider Department Dept Phone 05/15/2024 10:00 AM Carmela Caceres Account Services Representative [facility] Arrive at: Arrive to [facility] Registration Desk [phone] 07/09/2024 1:30 PM [facility] [place] Arrive at: Arrive to 1st Floor Registration [phone] 01/14/2025 10:30 AM Alexander We[facility] Account Services Representative [facility] Arrive at: Arrive to [facility] Registration Desk [phone] 01/14/2025 11:00 AM Ajit Hurtado Account Services Representative [facility] Arrive at: Arrive to [facility] Registration Desk [phone] Associated attestation - Sara Romero MD - 04/13/2024 10:26 PM EDT I saw and personally examined the patient on the day of discharge with the GENNA on rounds. I discussed the findings and therapeutic plan with the GENNA. I agree with the history, examination, and medical decision making as noted by the GENNA. In total, 35 minutes was spent on discharge planning. Sara Romero MD Advanced Heart Failure and Cardiac Transplant Program [facility] documented in this encounter [facility] 04-13-2024 Hospital Discharge instructions JT Lock - 04/13/2024 1:05 PM EDT Plan for Warfarin (Coumadin) after Discharge - Transition of Care Indication:AF INR Goal:2-3 Date 04/10 04/11 04/12 04/13 Warfarin Dose 7.5 7.5 7.5 7.5 Patient follows locally for INR management. He will resume his home warfarin dosing post discharge He will have a follow up INR on 04/16 Lab Results Component Value Date INR 1.2 (H) 04/13/2024 INR 1.2 (H) 04/12/2024 INR 1.3 (H) 04/11/2024 PT 15.5 (H) 04/13/2024 PT 14.8 (H) 04/12/2024 PT 16.0 (H) 04/11/2024 JT Lock - 04/13/2024 1:05 PM EDT Activity Advance your activity as you are able. Space your activities throughout the day and allow for rest periods to limit feeling tired or short of breath. Call your doctor and seek medical help right away if you have chest pain, shortness of breath that gets worse, a cough that gets worse or you cough up blood. Follow Cardiac Rehab guidelines for activity progression. We encourage your take part in out-patient cardiac rehab program. JT Lock - 04/13/2024 1:05 PM EDT Diet: Your doctor has recommended that you follow these diet instructions at home. Refer to the patient education materials you received during your hospital stay. If you would like more nutrition counseling, ask your doctor about making an appointment with an outpatient dietitian. Heart Healthy Diet to promote heart health. Choose healthy fats and oils such as canola or olive oil. Limit high cholesterol foods. Avoid added salt and caffeine in your foods. Controlled Carbohydrate Diet This diet controls carbohydrate intake to help manage and maintain consistent blood glucose levels. Simple sugars are limited and carbohydrate intake is balanced throughout the day. Avoid adding salt to your food and use heart healthy fats such as canola or olive oil. Cardiac-Very Low Sodium -Limit your salt or sodium intake each day to between 1500 and 2000 mg to help manage high blood pressure and limit fluid build up if you have heart failure. Your doctor has recommended that you follow these diet instructions at home. Refer to the patient education materials you received during your hospital stay. If you would like more nutrition counseling, ask your doctor about making an appointment with an outpatient dietitian. Continue to maintain a diet low in fat and cholesterol. Fluid Restriction Your doctor has ordered a fluid restriction to prevent fluid build up in your body because of heart or kidney problems. You should limit your fluids to no more than 2 liters (2000ml) daily, unless otherwise directed by your Division Director. Be sure to include all fluids in your daily total. Daily Weights Contact your placement officer with a weight gain of 2 lbs in a 24 hr period or 5 lbs in one week JT Lock - 04/13/2024 1:06 PM EDT Notify Your Doctor or Nurse if you have any of the following: Respiratory Changes- Call your doctor or nurse if you have more shortness of breath Unrelieved Pain - Call your doctor or nurse if your pain gets worse or is not eased 1 hour after taking your pain medicine. Symptoms of Stroke- Call for medical help right away if you have any signs of a stroke such as numbness or muscle weakness, confusion, memory problems or problems speaking. Signs of Infection- Call your doctor or nurse if you have a fever, chills, nausea, vomiting or diarrhea. Weight Monitoring Weigh yourself every morning wearing similar clothes. Record your weight on the weight calendar found in your Living with Heart Failure binder. Call your healthcare provider if you gain 2 pounds in one day or 5 pounds in one week. documented in this encounter [facility] 04-13-2024 Nurse Note Pt. Discharged to home with all belongings. HW and tele d/c'd. AVS reviewed with pt and family. All questions answered. Good RX card given to pt. For mexilitine. Pt. Discharged in wheelchair to lobby [facility] 04-13-2024 Miscellaneous Notes Pt. Discharged to home with all belongings. HW and tele d/c'd. AVS reviewed with pt and family. All questions answered. Good RX card given to pt. For mexilitine. Pt. Discharged in wheelchair to lobby Problem: Adult Inpatient Plan of Care Goal: Plan of Care Review Outcome: Progressing Goal: Patient-Specific Goal (Individualized) Outcome: Progressing Goal: Absence of Hospital-Acquired Illness or Injury Outcome: Progressing Goal: Optimal Comfort and Wellbeing Outcome: Progressing Goal: Readiness for Transition of Care Outcome: Progressing Problem: Fall Injury Risk Goal: Fall/Trauma/Injury Risk: Absence of Trauma/Injury/Falls Description: Patient will demonstrate the desired outcomes. Outcome: Progressing Goal: Knowledge of risk factors/behavior modification Description: Knowledge of risk factors/behavior modification for fall/injury prevention Outcome: Progressing Problem: Dysrhythmia Goal: Normalized Cardiac Rhythm Outcome: Progressing The patient left the unit despite my advice on the associated risks. Practitioner, Naty, was notified. The associated risks discussed include: And/or any condition in the judgment of the care team may compromise the patient's safety. The patient is aware of the risk of having another arrhythmia event. He agreed to wait until his was with him. Problem: Adult Inpatient Plan of Care Goal: Plan of Care Review Outcome: Progressing Goal: Patient-Specific Goal (Individualized) Outcome: Progressing Goal: Absence of Hospital-Acquired Illness or Injury Outcome: Progressing Goal: Optimal Comfort and Wellbeing Outcome: Progressing Goal: Readiness for Transition of Care Outcome: Progressing Problem: Fall Injury Risk Goal: Fall/Trauma/Injury Risk: Absence of Trauma/Injury/Falls Description: Patient will demonstrate the desired outcomes. Outcome: Progressing Goal: Knowledge of risk factors/behavior modification Description: Knowledge of risk factors/behavior modification for fall/injury prevention Outcome: Progressing Pt back from director of labor and delivery, right radial TR band intact. No hematoma noted. Right groin dressing dry and intact, no signs of hematoma or complications. Pt on bed rest for two hours and is well aware. Preliminary Report - Brief Cardiac Catheterization Procedure Note Tania Venegas ([id number]) Pre Procedural Diagnosis AICD discharge [Z45.02] Post Procedural Diagnosis AICD discharge [Z45.02] Procedure Performed Left heart catheterization and Coronary angiogram Access Site/Hemostasis Right femoral artery, TR Compression Band Right radial, artery, Perclose Findings Left Ventricular End Diastolic Pressure: Normal Left Ventricular Ejection Fraction: Not assessed Preliminary Results of Angiography Non-obstructive CAD Percutaneous Coronary Intervention No Intervention Intraprocedure Anticoagulation None Post-procedure Anticoagulation If anticoagulation is indicated per primary team, may restart 4 hours after hemostasis has been achieved Estimated Blood Loss Minimal Complications None Admission Does patient need to be admitted: Currently admitted Surgeon Surgeons and Role: * Elisabet Barnhart MD - Primary * Bryan Salinas MD - Fellow Procedural Staff Bundle Cutter: Galo Vernon RADHA; Matthias Mclean, RADHA Documenter: Ashley Hare RN Full report to follow Bryan Salinas MD April 10, 2024 9:08 AM Problem: Adult Inpatient Plan of Care Goal: Plan of Care Review Outcome: Progressing Flowsheets (Taken 04/09/20242000) Plan of Care Reviewed With: patient Goal: Patient-Specific Goal (Individualized) Outcome: Progressing Goal: Absence of Hospital-Acquired Illness or Injury Outcome: Progressing Problem: Fall Injury Risk Goal: Knowledge of risk factors/behavior modification Description: Knowledge of risk factors/behavior modification for fall/injury prevention Outcome: Progressing Asked to provide input on AAD for recurrent VT. Hx of NICM, AF, VT, PVCs. 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 Partial evaluation done today shows capture and sensing threshold and impedances appropriate. Did not perform manual capture threshold checks due to amount of VT over the last week. Percent paced: RA: 17%, GENERAL SCRAP WORKER: 82%. GENERAL SCRAP WORKER pacing is likely low due to ventricular ectopy over the last month. Since 06.05.2023 there have been 2 VF episodes with 1 episode on 04.04.24 @ 16:13 lasting 27 seconds in duration with average ventricular rate of 255 bpm that was treated with 1 scheme of ATP and 1 shock (no EGM available for this episode due to amount of alert worthy episodes since shock occurred) and the other episode on 04.06.24 @ 23:07 treated with 1 scheme of ATP with available EGM showing VT in the VF zone of 204 bpm lasting 10 seconds in duration successfully converted to sinus with BiVP. There were additionally 6 aborted shocks, again no EGM's available due to amount of notifications. There have been 58 VT detections (of note, these are all monitor as patient only has VF zone programmed >200 bpm), with all available EGM's showing VT lasting 9 seconds to 1 minute 30 seconds with average ventricular rates of 164 bpm - 190 bpm. There also have been 32 NSVT detections with available EGM's showing NSVT lasting 6-10 seconds in duration with average ventricular rates of 167-202 bpm. It is noted that most of these episodes happened in clusters on March 29, and April 04-today. Additionally there have been 519 atrial mode switches with available EGM's showing AF with BiVP lasting 28 seconds - 6 hours in duration. Total AT/AF burden is <1%. The battery should have approximately 5 months of service remaining. Changes made to the device today: none. Discussed findings with Dr. Hurtado who called Dr. Cox who is the rounding EP. It was determined due to amount of VT patient has been having an urgent cath and medication loading is warranted. Patient was with and daughter and all three were in agreement of direct admission. Recs: - amio iv bolus 150mg iv - amio drip 1mg/min - start leigha 200mg q8h with meals - if ongoing sustained vt after these measures, okay to hold leigha and start lido 1mg/min after 100mg bolus - full ep consult note in am documented in this encounter [facility] 04-12-2024 Plan of care note Problem: Adult Inpatient Plan of Care Goal: Plan of Care Review Outcome: Progressing Goal: Patient-Specific Goal (Individualized) Outcome: Progressing Goal: Absence of Hospital-Acquired Illness or Injury Outcome: Progressing Goal: Optimal Comfort and Wellbeing Outcome: Progressing Goal: Readiness for Transition of Care Outcome: Progressing Problem: Fall Injury Risk Goal: Fall/Trauma/Injury Risk: Absence of Trauma/Injury/Falls Description: Patient will demonstrate the desired outcomes. Outcome: Progressing Goal: Knowledge of risk factors/behavior modification Description: Knowledge of risk factors/behavior modification for fall/injury prevention Outcome: Progressing Problem: Dysrhythmia Goal: Normalized Cardiac Rhythm Outcome: [facility]ing [facility] History of Present illness Narrative Heart Failure 2/Advanced Heart Failure Progress Note Provider: Naty Manley APRN-FUNERAL HOME ASSOCIATE IDENTIFYING INFORMATION PATIENT: Tania Venegas, 1965, [id number] LOS: 3 Code Status: Full Code Daily Plan: Plan of Care for Today: -Cardiac MRI ordered per EP to help determine suitability for sympathetic denervation or endo- and /or epicardial VT ablation. - continue amio load 400 mg tid x 7 days (04/17) then 400 mg daily x 30 days and then 200 mg daily thereafter - Mexilitene 200mg q8hr -Continue home GDMT - Entresto increased to 49/51 BID Subjective/Interval Note Overnight Issues: Rhythm stable. Less ectopy No CV complaints I/O: Intake/Output Summary (Last 24 hours) at 04/12/2024 0610 Last data filed at 04/12/2024 0500 Gross per 24 hour Intake 1850 ml Output 1850 ml Net 0 ml Net IO Since Admission: -326.77 mL [04/12/24 0610] Daily Weight: Admission weight: 119.8kg Current weight: Weight: 118.8 kg (261 lb 14.4 oz) (standing) Diet: DIET CARDIAC - VERY LOW SODIUM Fluid Restriction 2000mL (1000mL Nursing, 1000mL Nutrition) Telemetry personally reviewed: AV paced, frequent PVC's, pvcs with 6 beats VT DVT Prophylaxis: Warfarin (Coumadin) Activity: As Tolerated Hospital Course: Tania Venegas is a 58 y.o. 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 Admitted to [facility] on 04/09 for ischemic evaluation and EP recs on NSVT, ICD shock on 04/04. Patient reported a shock delivered on 04/04 while he was ambulating at home and had LOC. Patient denied hitting his head, CP, diaphoresis, N/V, SOB. He was seen by HF in [place] on 02/26/24 with no med changes and VO2 planned. He is cardiac rehab 3 days a week for a few weeks and thinks he is improving in activity tolerance. He is taking lasix 40 mg prn which is about every 1.5 weeks. Weight ranges 260-265 lbs. He has less GRAF but reports lightheaded episodes for a few seconds that can occur anytime (with rest and not consistently with standing). However, he has been dizzy very frequently in the past few weeks, even this morning. He noticed this same feeling on Saturday, 04/04 before he was shocked. BP at home is running 100/70 mmHg. Good appetite and finishes meals. 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 No chest pain/pressure/discomfort, orthopnea, no PND, stable peripheral edema, no nausea/vomiting. He uses CPAP nightly for 4-6 hrs. 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 Unsuccessful ablation due to epicardial location, high risk to re-attempt. On anti-arrhythmic medications - amiodarone only, unable to afford ranolazine. PFTs repeated in Oct 2022 with normal DLCO. Amiodarone reduced since he was not having further afib issues and improvement in PVCs. Presenting with ICD shock on 04/04 with LOC at home. -Device interrogation on 04/09 : Percent paced: RA: 17%, GENERAL SCRAP WORKER: 82%. GENERAL SCRAP WORKER pacing is likely low due to ventricular ectopy over the last month. Since 06.05.2023 there have been 2 VF episodes with 1 episode on 04.04.24 @ 16:13 lasting 27 seconds in duration with average ventricular rate of 255 bpm that was treated with 1 scheme of ATP and 1 shock (no EGM available for this episode due to amount of alert worthy episodes since shock occurred) and the other episode on 04.06.24 @ 23:07 treated with 1 scheme of ATP with available EGM showing VT in the VF zone of 204 bpm lasting 10 seconds in duration successfully converted to sinus with BiVP. There were additionally 6 aborted shocks, again no EGM's available due to amount of notifications. There have been 58 VT detections (of note, these are all monitor as patient only has VF zone programmed >200 bpm), with all available EGM's showing VT lasting 9 seconds to 1 minute 30 seconds with average ventricular rates of 164 bpm - 190 bpm. There also have been 32 NSVT detections with available EGM's showing NSVT lasting 6-10 seconds in duration with average ventricular rates of 167-202 bpm. It is noted that most of these episodes happened in clusters on March 29, and April 04-today. Additionally there have been 519 atrial mode switches with available EGM's showing AF with BiVP lasting 28 seconds - 6 hours in duration. Total AT/AF burden is <1%. - EP following - -Cardiac MRI ordered per EP to help determine suitability for sympathetic denervation or endo- and /or epicardial VT ablation. - Amio bolus 150mg administered and amio drip at 1mg/min --> per EP transition to PO amio 400mg TID x 1 week (EOT 04/17) then 400 mg daily x 30 days (EOT 05/17) , then 200mg daily thereafter -continue mexilitene 200mg q8h - if ongoing sustained vt after these measures, okay to hold leigha and start lido 1mg/min after 100mg bolus Acute on chronic systolic heart failure (HFrEF) / hypertensive heart disease and non-ischemic cardiomyopathy (hx of Non-Hodgkins lymphoma 2006, 2/2 anthracycline toxicity) NYHA class II, ACC/AHA C EF 31%, LVIDD: Lab Results Component Value Date BNP 145 (H) 04/09/2024 BNP 1,159 11/05/2023 Date of Diagnosis: 2015 s/p anthracycline toxicity Diuresis: 40mg prn --> 40mg x 1 dose 04/09 Beta blockade: Toprol CXL 50mg AM/25mg PM ACEi / ARB / ARNI: Entresto 24/26mg PO BID --> increase to 49/51mg. IMRA: Eplerenone 25mg PO daily SGLT2i: none, due to nausea with jardiance and farxiga too expensive Vasodilator: Inotrope: ICD / GENERAL SCRAP WORKER: [employer] - GENERAL SCRAP WORKER-D Research Opportunities: Cardiac diet with 2 gram Na, 2L fluid restriction Weigh daily Strict I/O Paroxysmal A-fib s/p ablations 2016 Afib ablation c/b perforation, Cryo + CTI 06/2017, Repeat CTI ablation 12/2020. On admit SR with frequent PVCs [id number] Score for Atrial Fibrillation Stroke Risk Age in Years: <65 Sex: Male CHF History: Yes Hypertension History: Yes Stroke/TIA/Thromboembolism History: No Vascular Disease History: No Diabetes History: No [id number] Score: 2 - Hold Coumadin, received vitamin K 5mg for urgent [facility] -->> [facility] completed 04/10 -INR 1.9 (04/10) -Restart coumadin 7.5mg 04/10 PM, INR goal 2-3 - At home takes Coumadin 5mg on M,W,F/ 7.5mg on other days. - continue Toprol XL [place] Coronary Artery Disease Previous [facility] 2015 and 2018 - with non-obstructive disease. Noted LAD 30-40% ostial stenosis, 30% mid vessel stenosis 30%, minimal circumflex disease. [facility] 04/10/24 --> The left anterior descending (LAD) has moderate non-obstructive disease throughout with a 50% proximal LAD lesion. LCx mild disease, RCS with mild disease throughout with a 40% mid RCA lesion and 40% distal RCA lesion. Beta Ashley: Toprol XL 50mgAM/ 25mg PM Statin: Crestor 10mg daily Anti Platelet:ASA 81mg Anti Anginal: Hypertension -Meds as above BP Readings from Last 3 Encounters: 04/12/24 120/82 04/09/24 132/82 01/09/24 133/78 Hyperlipidemia LDL 92 on admission - patient currently on crestor 10mg daily -Increase to crestor 20mg daily -Will recheck lipid panel in 3 months Lab Results Component Value Date CHOLESTEROL 187 04/09/2024 TRIG 294 (H) 04/09/2024 HDL 36 (L) 04/09/2024 LDLCALC 92 04/09/2024 CKD Stage II (I=GFR>90, II=60-89, III=30-59, IV=15-29, V<15) -Baseline Cr 0.9-1.1. Stable on admission Lab Results Component Value Date CREATSERUM 0.89 04/11/2024 CREATSERUM 1.07 04/10/2024 CREATSERUM 1.18 04/09/2024 Lab Results Component Value Date GFR >90 04/11/2024 GFR 80 04/10/2024 GFR 72 04/09/2024 Estimated Creatinine Clearance: 122 mL/min (by C-G formula based on SCr of 0.89 mg/dL). Electrolyte Monitoring - Maintain K > 4, Mg > 2 - Replete PRN - Na Lab Results Component Value Date SODIUM 136 04/11/2024 SODIUM 137 04/10/2024 SODIUM 138 04/09/2024 - K+ Lab Results Component Value Date POTASSIUM 4.3 04/11/2024 POTASSIUM 4.1 04/10/2024 POTASSIUM 3.9 04/09/2024 - Cl Lab Results Component Value Date CHLORIDE 105 04/11/2024 CHLORIDE 101 04/10/2024 CHLORIDE 104 04/09/2024 - Mg - hypomagnesemia - patient received 800mg PO 04/09 PM and 4g IVPB 04/10 AM. Replete as needed. Scheduled magnesium 800mg PO also in place Lab Results Component Value Date MAGNESIUM 2.2 04/11/2024 MAGNESIUM 1.7 04/09/2024 MAGNESIUM 1.8 04/09/2024 BRANNON on CPAP Patient states he is compliant with CPAP at home -Ordered CPAP Anemia of Chronic Disease Secondary to HF Lab Results Component Value Date HGB 13.5 04/10/2024 HGB 13.4 04/09/2024 HGB 13.1 (L) 11/07/2022 Lab Results Component Value Date IRON 87 04/09/2024 FERRITIN 36.2 04/09/2024 Lab Results Component Value Date TRANSFERRIN 292 04/09/2024 Lab Results Component Value Date TIBC 365 04/09/2024 Lab Results Component Value Date IRONSATURAT 24 04/09/2024 Class I Obesity (Body mass index is 34.55 kg/m .; Class I= 30-34.9, Class II= 35-39.9, Class III= > 40; <19 -consider cardiac cachexia) Patient given education regarding Lifestyle Modification Secondary to Excess Caloric intake and decreased Caloric Expenditure Complexity. Obesity Body mass index is 34.55 kg/m . - Follow with PCP for dietary and lifestyle modifications. Any conditions listed below are present on admission unless otherwise specified. . Multi-disciplinary decision making was completed with representatives from Heart Failure Cardiology, Psychology (Behavioral Cardiology), GENNA's, nursing and PharmDs. Objective: Temp: [97.7 F (36.5 C)-98.7 F (37.1 C)] 98.4 F (36.9 C) Pulse (Heart Rate): [64-80] 78 Resp Rate: [14-16] 16 BP: (103-120)/(68-82) 120/82 O2 Sat (%): [93 %-96 %] 95 % Weight: [118.8 kg (261 lb 14.4 oz)] 118.8 kg (261 lb 14.4 oz) Body mass index is 34.55 kg/m . Physical Exam Constitutional: No distress. He appears chronically ill. Eyes: Pupils are equal, round, and reactive to light. Neck: No JVD present. Cardiovascular: Normal rate, regular rhythm, S1 normal and S2 normal. Pulses: Radial pulses are 2+ on the right side and 2+ on the left side. Dorsalis pedis pulses are 2+ on the right side and 2+ on the left side. Warm and dry Pulmonary/Chest: Effort normal and breath sounds normal. He has no wheezes. He has no rales. He exhibits no tenderness. Abdominal: Soft. Bowel sounds are normal. He exhibits no distension. Musculoskeletal: General: No edema. Normal range of motion. Cervical back: Normal range of motion and neck supple. Neurological: He is alert and oriented to person, place, and time. Skin: Skin is warm and dry. 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 Ventricular tachycardia Recent Labs 04/09/24 1535 04/09/24 2214 04/10/24 0508 04/11/24 0443 WBC 6.96 -- 7.05 -- HGB 13.4 -- 13.5 -- HCT 40.5 -- 40.9 -- PLATELET 220 -- 210 -- SODIUM 138 -- 137 136 POTASSIUM 3.8 3.9 4.1 4.3 CHLORIDE 104 -- 101 105 CO2 23 -- 26 24 BUN 16 -- 17 15 CREATSERUM 1.18 -- 1.07 0.89 BNP 145* -- -- -- Recent Labs 04/09/24 1535 04/10/24 0508 04/11/24 0443 ALKPHOS 66 -- -- AST 20 -- -- ALT 8* -- -- ALBUMIN 3.9 -- -- INR 2.2* 1.9* 1.3* Last Echo: 03/11/24 - [facility] Global left ventricular systolic function is difficult to assess but appears reduced, visually estimated EF 25-30% The right ventricle is mildly dilated with reduced systolic function Biatrial enlargement Grade III DD Mildly increased left ventricular wall thickness Mildly elevated RVSP 39mmHg Mild pulmonic regurgitation EKG: Atrial-sensed ventricular paced rhythm (calculated QT 344) [START ON 04/18/2024] AMIOdarone 200 mg Oral Daily AMIOdarone 400 mg Oral TID aspirin 81 mg Oral Daily eplerenone 25 mg Oral Daily magnesium oxide 400 mg Oral Daily Metoprolol succinate 25 mg Oral QHS Metoprolol succinate 50 mg Oral Daily mexiletine 200 mg Oral Q8H Potassium chloride 20 mEq Oral Daily Rosuvastatin 20 mg Oral QHS sacubitril-valsartan 1 tablet Oral Q12H [START ON 04/13/2024] Warfarin 5 mg Oral Q MWF Warfarin 7.5 mg Oral Once per day on Saturday Discussed with team on rounds. This plan will be discussed with Dr. Emmy Moura MD, the attending production cost estimator. DISCHARGE PLANNING: Dispo/Debility -Home Follow Up Appointments: TBD Please Ensure Follow Up Labs / Testing are scheduled: TBD [facility] HF2/Advanced Heart Failure Phone: [phone] Discharge Planning Patient Assessment Admission Assessment Patient Assessment Completed: Initial Anticipated discharge disposition: Home Reason for Admission: Ventricular Tachycardia Is the patient able to participate in the assessment?: Yes Information source: Patient, Review of Medical Record Information Source Name/Contact: Tania Venegas Demographics Verified and Updated: Yes Has the patient been admitted to any hospital in the last 30 days?: No Advanced Care Planning Has the patient completed Advance Directives?: Not Completed Referral to Social Work for Advance Care Planning? : Patient Declines (Ernie reports in process) Legal Next of Kin Does the patient have a Guardian?: No Spouse: Yes Name and Contact information: Juliana Venegas [phone] Reviewed and Updated in Demographics? : Yes Outpatient Providers Does patient have a primary care physician? : Yes When was the patient's last PCP visit?: > 30 days Does the patient follow any specialists?: Yes Reviewed and updated Care Team?: Yes Patient Care Team: Oliver Springer Jr., DO as PCP - General (Internal Medicine) Alexander Cox MD as PCP - Referring 2 (Clinical Cardiac Electrophysiology) Mojgan Zelaya MD (Interventional Cardiology) Evie Candelaria DO (Orthopaedic Surgery) Environment/Caregivers Is the patient from a facility or fpc?: No Patient lives with: Spouse or Partner Living Environment: House How many steps does the patient have to navigate to enter or inside the home? : 4 Does the patient have a first floor set-up with bed and bathroom?: No Patient Caregiving Responsibilities: Self Patient-identified caregiver/support network: Family Who does the patient identify as a teachable caregiver(s)?: Spouse or Partner Services Does the patient use a home health or hospice agency?: No Current with dialysis?: No Does the patient use any community programs or services?: No Does patient use DME? : cpap Does the patient use oxygen?: No Does patient use medical supplies? : none Anticipated Changes Related to Illness/Injury? : No Initial ADLs Prior to Arrival What is the patient's baseline physical functioning prior to this acute illness?: independent What is the patient's baseline cognitive functioning prior to this acute illness?: independent Is the patient's baseline functioning changed by this acute illness? : No Concerns with patient being able to care for themselves at home? : No Are there therapy or specialists consults?: Yes Select consult type: PT, OT, Social Work Does the patient's home require any home modifications for discharge? : No CM to recommend therapy or other consults? : No Medication Management Does the patient have prescription insurance coverage? : Yes Is the patient on Anticoagulation? 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 : No Employed?: Disabled Coping/Stress Concerns about patient s coping and stress?: No Concerns about patient s caregiver s coping and stress?: Unable to Assess Values and Beliefs Cultural or bahai practices that may impact discharge planning and/or medical care?: No Initial Discharge Planning Anticipated discharge disposition: Home Transportation Available for Discharge: Private Vehicle, Family or Friend Anticipated DME: none Anticipated Services at Discharge: Outpatient follow up Patient Assessment Completed: Initial Expected Discharge Date: TBD Discharge Planning Summary Patient lives in a two story house with spouse and 1 dog. [facility] [place] [facility] DME/ HHC requirements- Patient currently uses a CPAP. 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 Patient will be transported via spouse/ private vehicle at discharge. Account Contact Associate will continue to follow and assist with discharge planning as needed. Care Management Plan Met with patient and introduced self and role of CM. Patient demographics/ address emergency contact information/ current outpatient providers and pharmacy verified. CM will continue to follow with medical team to coordinate discharge planning Please note that I am a float disease case manager and may not cover the same service every day. Please call the main Case Management office at [phone] for up-to-date coverage. Marcela Mares RN, MSN, CNOR Clinical Account Contact Associate 10R Transplant [phone] Heart Failure 2/Advanced Heart Failure Progress Note Provider: Naty Manley APRN-FUNERAL HOME ASSOCIATE IDENTIFYING INFORMATION PATIENT: Tania Venegas, 1965, [id number] LOS: 2 Code Status: Full Code Daily Plan: Plan of Care for Today: -Cardiac MRI ordered per EP - continue amio load 400 mg tid x 7 days (04/17) then 400 mg daily and then 200 mg daily (will need to clarify duration of 400 mg daily dose) -Mexilitene 200mg q8hr -Continue home GDMT - Entresto increased to 49/51 BID Subjective/Interval Note Overnight Issues: Rhythm stable. No CV complaints I/O: Intake/Output Summary (Last 24 hours) at 04/11/2024 0561 Last data filed at 04/11/2024 0448 Gross per 24 hour Intake 3223.23 ml Output 1400 ml Net 1823.23 ml Net IO Since Admission: -326.77 mL [04/11/24 0555] Daily Weight: Admission weight: 119.8kg Current weight: Weight: 119.4 kg (263 lb 4.8 oz) (standing) Diet: DIET CARDIAC - VERY LOW SODIUM Fluid Restriction 2000mL (1000mL Nursing, 1000mL Nutrition) Telemetry personally reviewed: AV paced, frequent PVC's, pvcs with 6 beats VT DVT Prophylaxis: Warfarin (Coumadin) Activity: As Tolerated Hospital Course: Tania Venegas is a 58 y.o. 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 Admitted to [facility] on 04/09 for ischemic evaluation and EP recs on NSVT, ICD shock on 04/04. Patient reported a shock delivered on 04/04 while he was ambulating at home and had LOC. Patient denied hitting his head, CP, diaphoresis, N/V, SOB. He was seen by HF in [place] on 02/26/24 with no med changes and VO2 planned. He is cardiac rehab 3 days a week for a few weeks and thinks he is improving in activity tolerance. He is taking lasix 40 mg prn which is about every 1.5 weeks. Weight ranges 260-265 lbs. He has less GRAF but reports lightheaded episodes for a few seconds that can occur anytime (with rest and not consistently with standing). However, he has been dizzy very frequently in the past few weeks, even this morning. He noticed this same feeling on Saturday, 04/04 before he was shocked. BP at home is running 100/70 mmHg. Good appetite and finishes meals. 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 No chest pain/pressure/discomfort, orthopnea, no PND, stable peripheral edema, no nausea/vomiting. He uses CPAP nightly for 4-6 hrs. 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 Unsuccessful ablation due to epicardial location, high risk to re-attempt. On anti-arrhythmic medications - amiodarone only, unable to afford ranolazine. PFTs repeated in Oct 2022 with normal DLCO. Amiodarone reduced since he was not having further afib issues and improvement in PVCs. Presenting with ICD shock on 04/04 with LOC at home. -Device interrogation on 04/09 : Percent paced: RA: 17%, GENERAL SCRAP WORKER: 82%. GENERAL SCRAP WORKER pacing is likely low due to ventricular ectopy over the last month. Since 06.05.2023 there have been 2 VF episodes with 1 episode on 24 @ 16:13 lasting 27 seconds in duration with average ventricular rate of 255 bpm that was treated with 1 scheme of ATP and 1 shock (no EGM available for this episode due to amount of alert worthy episodes since shock occurred) and the other episode on 24 @ 23:07 treated with 1 scheme of ATP with available EGM showing VT in the VF zone of 204 bpm lasting 10 seconds in duration successfully converted to sinus with BiVP. There were additionally 6 aborted shocks, again no EGM's available due to amount of notifications. There have been 58 VT detections (of note, these are all monitor as patient only has VF zone programmed >200 bpm), with all available EGM's showing VT lasting 9 seconds to 1 minute 30 seconds with average ventricular rates of 164 bpm - 190 bpm. There also have been 32 NSVT detections with available EGM's showing NSVT lasting 6-10 seconds in duration with average ventricular rates of 167-202 bpm. It is noted that most of these episodes happened in clusters on March 29, and April 04-today. Additionally there have been 519 atrial mode switches with available EGM's showing AF with BiVP lasting 28 seconds - 6 hours in duration. Total AT/AF burden is <1%. - EP following - planning for outpatient epicardial ablation of VT -Cardiac MRI ordered per EP - Amio bolus 150mg administered and amio drip at 1mg/min --> per EP transition to PO amio 400mg TID x 1 week, then 200mg daily -Stop amiodarone drip with 04/10 PM oral dose of amio -continue mexilitene 200mg q8h - if ongoing sustained vt after these measures, okay to hold leigha and start lido 1mg/min after 100mg bolus Acute on chronic systolic heart failure (HFrEF) / hypertensive heart disease and non-ischemic cardiomyopathy (hx of Non-Hodgkins lymphoma 2006, 2/2 anthracycline toxicity) NYHA class II, ACC/AHA C EF 31%, LVIDD: Lab Results Component Value Date BNP 145 (H) 04/09/2024 BNP 1,159 11/05/2023 Date of Diagnosis: 2016 s/p anthracycline toxicity Diuresis: 40mg prn --> 40mg x 1 dose 04/09 Beta blockade: Toprol CXL 50mg AM/25mg PM ACEi / ARB / ARNI: Entresto 24/26mg PO BID --> increase to 49/51mg. IMRA: Eplerenone 25mg PO daily SGLT2i: none, due to nausea with jardiance and farxiga too expensive Vasodilator: Inotrope: ICD / GENERAL SCRAP WORKER: [employer] - GENERAL SCRAP WORKER-D Research Opportunities: Cardiac diet with 2 gram Na, 2L fluid restriction Weigh daily Strict I/O Paroxysmal A-fib s/p ablations 2016 Afib ablation c/b perforation, Cryo + CTI 06/2017, Repeat CTI ablation 12/2020. On admit SR with frequent PVCs [id number] Score for Atrial Fibrillation Stroke Risk Age in Years: <65 Sex: Male CHF History: Yes Hypertension History: Yes Stroke/TIA/Thromboembolism History: No Vascular Disease History: No Diabetes History: No [id number] Score: 2 - Hold Coumadin, received vitamin K 5mg for urgent LHC -->> [facility] completed 04/10 -INR 1.9 (04/10) -Restart coumadin 7.5mg 04/10 PM, INR goal 2-3 - At home takes Coumadin 5mg on ,,/ 7.5mg on other days. - continue Toprol XL [place] Coronary Artery Disease Previous [facility] 2015 and 2018 - with non-obstructive disease. Noted LAD 30-40% ostial stenosis, 30% mid vessel stenosis 30%, minimal circumflex disease. [facility] 04/10/24 --> The left anterior descending (LAD) has moderate non-obstructive disease throughout with a 50% proximal LAD lesion. LCx mild disease, RCS with mild disease throughout with a 40% mid RCA lesion and 40% distal RCA lesion. Beta Ashley: Toprol XL 50mgAM/ 25mg PM Statin: Crestor 10mg daily Anti Platelet:ASA 81mg Anti Anginal: Hypertension -Meds as above BP Readings from Last 3 Encounters: 04/11/24 114/73 04/09/24 132/82 01/09/24 133/78 Hyperlipidemia LDL 92 on admission - patient currently on crestor 10mg daily -Increase to crestor 20mg daily -Will recheck lipid panel in 3 months Lab Results Component Value Date CHOLESTEROL 187 04/09/2024 TRIG 294 (H) 04/09/2024 HDL 36 (L) 04/09/2024 LDLCALC 92 04/09/2024 CKD Stage II (I=GFR>90, II=60-89, III=30-59, IV=15-29, V<15) -Baseline Cr 0.9-1.1. Stable on admission Lab Results Component Value Date CREATSERUM 0.89 04/11/2024 CREATSERUM 1.07 04/10/2024 CREATSERUM 1.18 04/09/2024 Lab Results Component Value Date GFR >90 04/11/2024 GFR 80 04/10/2024 GFR 72 04/09/2024 Estimated Creatinine Clearance: 122 mL/min (by C-G formula based on SCr of 0.89 mg/dL). Electrolyte Monitoring - Maintain K > 4, Mg > 2 - Replete PRN - Na Lab Results Component Value Date SODIUM 136 04/11/2024 SODIUM 137 04/10/2024 SODIUM 138 04/09/2024 - K+ Lab Results Component Value Date POTASSIUM 4.3 04/11/2024 POTASSIUM 4.1 04/10/2024 POTASSIUM 3.9 04/09/2024 - Cl Lab Results Component Value Date CHLORIDE 105 04/11/2024 CHLORIDE 101 04/10/2024 CHLORIDE 104 04/09/2024 - Mg - hypomagnesemia - patient received 800mg PO 04/09 PM and 4g IVPB 04/10 AM. Replete as needed. Scheduled magnesium 800mg PO also in place Lab Results Component Value Date MAGNESIUM 2.2 04/11/2024 MAGNESIUM 1.7 04/09/2024 MAGNESIUM 1.8 04/09/2024 BRANNON on CPAP Patient states he is compliant with CPAP at home -Ordered CPAP Anemia of Chronic Disease Secondary to HF Lab Results Component Value Date HGB 13.5 04/10/2024 HGB 13.4 04/09/2024 HGB 13.1 (L) 11/07/2022 Lab Results Component Value Date IRON 87 04/09/2024 FERRITIN 36.2 04/09/2024 Lab Results Component Value Date TRANSFERRIN 292 04/09/2024 Lab Results Component Value Date TIBC 365 04/09/2024 Lab Results Component Value Date IRONSATURAT 24 04/09/2024 Class I Obesity (Body mass index is 34.74 kg/m .; Class I= 30-34.9, Class II= 35-39.9, Class III= > 40; <19 -consider cardiac cachexia) Patient given education regarding Lifestyle Modification Secondary to Excess Caloric intake and decreased Caloric Expenditure Complexity. Obesity Body mass index is 34.74 kg/m . - Follow with PCP for dietary and lifestyle modifications. Any conditions listed below are present on admission unless otherwise specified. . Multi-disciplinary decision making was completed with representatives from Heart Failure Cardiology, Psychology (Behavioral Cardiology), GENNA's, nursing and PharmDs. Objective: Temp: [97.5 F (36.4 C)-98.9 F (37.2 C)] 98.2 F (36.8 C) Pulse (Heart Rate): [58-80] 65 Resp Rate: [14-41] 14 BP: (86-138)/(50-84) 114/73 O2 Sat (%): [92 %-97 %] 96 % Weight: [119.4 kg (263 lb 4.8 oz)] 119.4 kg (263 lb 4.8 oz) Body mass index is 34.74 kg/m . Physical Exam Constitutional: He appears chronically ill. Eyes: Pupils are equal, round, and reactive to light. Neck: No JVD present. Cardiovascular: Normal rate and regular rhythm. Pulses: Radial pulses are 2+ on the right side and 2+ on the left side. Dorsalis pedis pulses are 2+ on the right side and 2+ on the left side. Posterior tibial pulses are 1+ on the right side and 1+ on the left side. Warm and dry Pulmonary/Chest: Effort normal and breath sounds normal. He has no rales. He exhibits no tenderness. Abdominal: Soft. Bowel sounds are normal. He exhibits no distension. Musculoskeletal: General: No edema. Normal range of motion. Cervical back: Normal range of motion and neck supple. Neurological: He is alert and oriented to person, place, and time. Skin: Skin is warm and dry. 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 Ventricular tachycardia Recent Labs 04/09/24 1535 04/09/24 2214 04/10/24 0508 04/11/24 0443 WBC 6.96 -- 7.05 -- HGB 13.4 -- 13.5 -- HCT 40.5 -- 40.9 -- PLATELET 220 -- 210 -- SODIUM 138 -- 137 136 POTASSIUM 3.8 3.9 4.1 4.3 CHLORIDE 104 -- 101 105 CO2 23 -- 24 BUN 16 -- 17 15 CREATSERUM 1.18 -- 1.07 0.89 BNP 145* -- -- -- Recent Labs 04/09/24 1535 04/10/24 0508 04/11/24 0443 ALKPHOS 66 -- -- AST 20 -- -- ALT 8* -- -- ALBUMIN 3.9 -- -- INR 2.2* 1.9* 1.3* Last Echo: 03/11/24 - [facility] Global left ventricular systolic function is difficult to assess but appears reduced, visually estimated EF 25-30% The right ventricle is mildly dilated with reduced systolic function Biatrial enlargement Grade III DD Mildly increased left ventricular wall thickness Mildly elevated RVSP 39mmHg Mild pulmonic regurgitation EKG: Atrial-sensed ventricular paced rhythm (calculated QT 344) [START ON 04/18/2024] AMIOdarone 200 mg Oral Daily AMIOdarone 400 mg Oral TID aspirin 81 mg Oral Daily eplerenone 25 mg Oral Daily magnesium oxide 400 mg Oral Daily Metoprolol succinate 25 mg Oral QHS Metoprolol succinate 50 mg Oral Daily mexiletine 200 mg Oral Q8H Potassium chloride 20 mEq Oral Daily Rosuvastatin 20 mg Oral QHS sacubitril-valsartan 1 tablet Oral Q12H [START ON 04/13/2024] Warfarin 5 mg Oral Q MWF Warfarin 7.5 mg Oral Once per day on Saturday Discussed with team on rounds. This plan will be discussed with Dr. Emmy Moura MD, the attending production cost estimator. DISCHARGE PLANNING: Dispo/Debility -Home Follow Up Appointments: TBD Please Ensure Follow Up Labs / Testing are scheduled: TBD Naty Manley APRN-FUNERAL HOME ASSOCIATE HF2/Advanced Heart Failure Phone: [phone] Associated attestation - Emmy Moura MD - 04/11/2024 12:11 PM EDT HF 2 Attending Attestation: I saw and personally examined this patient on 04/11/2024 during inpatient rounds with the HF GENNA on the HF2 service. I provided a substantive portion of care for this patient. I personally performed all aspects of the medical decision making for this encounter. I have reviewed and verified this documentation and it accurately reflects our care. 58 yo man with hx of DCM (chemotherapy-induced - received anthracycline for lymphoma in 2006). He has HFrEF and recurrent, frequent episodes of VT. His LVEF 30%. On reasonable GDMT, he has NYHA class II sx, including dyspnea with fast walking or lifting. He recently had ICD shock, and is admitted for adjustment and monitoring of antiarrhythmic therapy. Given the increased freq of VT, LHC done today showing moderate ASCVD - 30-40% prox LAD disease. No high-grade lesions requiring PCI. Plan: - optimize HF therapy - increase statin (LDL goal is < 50 for this pt) - add mexiletine 200 q8hrs. - oral Amio load - cMRI in preparation for eventual outpt epicardial ablation. Emmy Moura M.D. squeegee tender Advanced Heart Failure Program Division of Cardiovascular Medicine [facility] [email or web address] ph [phone] fax [phone] Inpatient Cardiopulmonary Rehab Consultation AND Activity Session Completed. RN approved, as tolerated, and patient agreeable to visit. Patient reports feeling okay without complaints. Activity Session Vitals: Held ambulation at this time due to patient on bed rest from cath. RN notified/aware. Encouraged continued ambulation and discussed appropriate activity progression. Patient participation in outpatient cardiac rehab was discussed. Patient is interested in participating in rehab at their local facility: [facility]. AMB REFERRAL TO CARDIAC REHAB HAS BEEN PENDED. PLEASE REVIEW AND SIGN ORDER PRIOR TO DISCHARGE SO THE AMB REFERRAL CAN BE SENT TO APPROPRIATE FACILITY BY THE INPATIENT REHAB TEAM. Discharge education provided to the patient. Printed materials provided/reviewed: living with heart failure book, CHF handouts. Patient s questions/concerns were addressed and topics below were discussed. 1. Pathophysiology of CHF 2. Signs/Symptoms to Monitor/Report 3. Specific Dietary Guidelines 4. Activity Guidelines/Recommendations 5. Daily Weight Monitoring 6. Cardiac Medications 7. Follow Up We will continue to follow up with patient as needed until discharge for education review and activity progression. Kathy Elaine, [phone]) IP Cardiopulmonary & Vascular Rehab Heart Failure 2/Advanced Heart Failure Progress Note Provider: Ann Smith APRN-FUNERAL HOME ASSOCIATE IDENTIFYING INFORMATION PATIENT: Tania Venegas, 1965, [id number] LOS: 1 Code Status: Full Code Daily Plan: Plan of Care for Today: -LHC - completed today - non-obstructive CAD -LDL 92 - increased crestor from 10mg to 20mg daily -INR 1.9 - restart coumadin 04/10 PM 7.5mg -EP following - plan for outpatient epicardial ablation -Cardiac MRI ordered per EP - Amio drip at 1mg/min - start PO amio 400mg tid, discontinue gtt 04/10 after PM oral amio dose -Mexilitene 200mg q8hr -Continue home GDMT - Entresto increased to 49/51 BID Subjective/Interval Note Overnight Issues: No acute overnight events. Tolerated increase in PM entresto dose of 49/51, had a 5 beat run of NSVT, magnesium replaced with 4g IVPB and 40mEq of K given. I/O: Intake/Output Summary (Last 24 hours) at 04/10/2024 1454 Last data filed at 04/10/2024 1402 Gross per 24 hour Intake 675 ml Output 2975 ml Net -2300 ml Net IO Since Admission: -2,300 mL [04/10/24 1454] Daily Weight: Admission weight: 119.8kg Current weight: Weight: 119.1 kg (262 lb 9.6 oz) (standing) Diet: DIET CARDIAC - VERY LOW SODIUM Fluid Restriction 2000mL (1000mL Nursing, 1000mL Nutrition) Telemetry personally reviewed: AV paced, frequent PVC's, short runs of NSVT DVT Prophylaxis: Warfarin (Coumadin) Activity: As Tolerated Hospital Course: Tania Venegas is a 58 y.o. 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 Admitted to [facility] on 04/09 for ischemic evaluation and EP recs on NSVT, ICD shock on 04/04. Patient reported a shock delivered on 04/04 while he was ambulating at home and had LOC. Patient denied hitting his head, CP, diaphoresis, N/V, SOB. He was seen by HF in [place] on 02/26/24 with no med changes and VO2 planned. He is cardiac rehab 3 days a week for a few weeks and thinks he is improving in activity tolerance. He is taking lasix 40 mg prn which is about every 1.5 weeks. Weight ranges 260-265 lbs. He has less GRAF but reports lightheaded episodes for a few seconds that can occur anytime (with rest and not consistently with standing). However, he has been dizzy very frequently in the past few weeks, even this morning. He noticed this same feeling on Saturday, 04/04 before he was shocked. BP at home is running 100/70 mmHg. Good appetite and finishes meals. 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 No chest pain/pressure/discomfort, orthopnea, no PND, stable peripheral edema, no nausea/vomiting. He uses CPAP nightly for 4-6 hrs. 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 Unsuccessful ablation due to epicardial location, high risk to re-attempt. On anti-arrhythmic medications - amiodarone only, unable to afford ranolazine. PFTs repeated in Oct 2022 with normal DLCO. Amiodarone reduced since he was not having further afib issues and improvement in PVCs. Presenting with ICD shock on 04/04 with LOC at home. -Device interrogation on 04/09 : Percent paced: RA: 17%, GENERAL SCRAP WORKER: 82%. GENERAL SCRAP WORKER pacing is likely low due to ventricular ectopy over the last month. Since 06.05.2023 there have been 2 VF episodes with 1 episode on 04.04.24 @ 16:13 lasting 27 seconds in duration with average ventricular rate of 255 bpm that was treated with 1 scheme of ATP and 1 shock (no EGM available for this episode due to amount of alert worthy episodes since shock occurred) and the other episode on 04.06.24 @ 23:07 treated with 1 scheme of ATP with available EGM showing VT in the VF zone of 204 bpm lasting 10 seconds in duration successfully converted to sinus with BiVP. There were additionally 6 aborted shocks, again no EGM's available due to amount of notifications. There have been 58 VT detections (of note, these are all monitor as patient only has VF zone programmed >200 bpm), with all available EGM's showing VT lasting 9 seconds to 1 minute 30 seconds with average ventricular rates of 164 bpm - 190 bpm. There also have been 32 NSVT detections with available EGM's showing NSVT lasting 6-10 seconds in duration with average ventricular rates of 167-202 bpm. It is noted that most of these episodes happened in clusters on March 29, and April 04-today. Additionally there have been 519 atrial mode switches with available EGM's showing AF with BiVP lasting 28 seconds - 6 hours in duration. Total AT/AF burden is <1%. - EP following - planning for outpatient epicardial ablation of VT -Cardiac MRI ordered per EP - Amio bolus 150mg administered and amio drip at 1mg/min --> per EP transition to PO amio 400mg TID x 1 week, then 200mg daily -Stop amiodarone drip with 04/10 PM oral dose of amio -continue mexilitene 200mg q8h - if ongoing sustained vt after these measures, okay to hold leigha and start lido 1mg/min after 100mg bolus Acute on chronic systolic heart failure (HFrEF) / hypertensive heart disease and non-ischemic cardiomyopathy (hx of Non-Hodgkins lymphoma 2006, 2/2 anthracycline toxicity) NYHA class II, ACC/AHA C EF 31%, LVIDD: Lab Results Component Value Date BNP 145 (H) 04/09/2024 BNP 1,159 11/05/2023 Date of Diagnosis: 2016 s/p anthracycline toxicity Diuresis: 40mg prn --> 40mg x 1 dose 04/09 Beta blockade: Toprol CXL 50mg AM/25mg PM ACEi / ARB / ARNI: Entresto 24/26mg PO BID --> increase PM dose 04/10 to 49/51mg. If tolerates PM dose increase can then increase AM dose beginning 04/11. MRA: Eplerenone 25mg PO daily SGLT2i: none, due to nausea with jardiance and farxiga too expensive Vasodilator: Inotrope: ICD / GENERAL SCRAP WORKER: [employer] - GENERAL SCRAP WORKER-D Research Opportunities: Cardiac diet with 2 gram Na, 2L fluid restriction Weigh daily Strict I/O Paroxysmal A-fib s/p ablations 2016 Afib ablation c/b perforation, Cryo + CTI 06/2017, Repeat CTI ablation 12/2020. On admit SR with frequent PVCs [id number] Score for Atrial Fibrillation Stroke Risk Age in Years: <65 Sex: Male CHF History: Yes Hypertension History: Yes Stroke/TIA/Thromboembolism History: No Vascular Disease History: No Diabetes History: No [id number] Score: 2 - Hold Coumadin, received vitamin K 5mg for urgent LHC -->> LHC completed 04/10 -INR 1.9 (04/10) -Restart coumadin 7.5mg 04/10 PM, INR goal 2-3 - At home takes Coumadin 5mg on M,W,F/ 7.5mg on other days. - continue Toprol XL [place] Coronary Artery Disease Previous [facility] 2015 and 2018 - with non-obstructive disease. Noted LAD 30-40% ostial stenosis, 30% mid vessel stenosis 30%, minimal circumflex disease. [facility] 04/10/24 --> The left anterior descending (LAD) has moderate non-obstructive disease throughout with a 50% proximal LAD lesion. LCx mild disease, RCS with mild disease throughout with a 40% mid RCA lesion and 40% distal RCA lesion. Beta Ashley: Toprol XL 50mgAM/ 25mg PM Statin: Crestor 10mg daily Anti Platelet:ASA 81mg Anti Anginal: Hypertension -Meds as above BP Readings from Last 3 Encounters: 04/10/24 116/81 04/09/24 132/82 01/09/24 133/78 Hyperlipidemia LDL 92 on admission - patient currently on crestor 10mg daily -Increase to crestor 20mg daily -Will recheck lipid panel in 3 months Lab Results Component Value Date CHOLESTEROL 187 04/09/2024 TRIG 294 (H) 04/09/2024 HDL 36 (L) 04/09/2024 LDLCALC 92 04/09/2024 CKD Stage II (I=GFR>90, II=60-89, III=30-59, IV=15-29, V<15) -Baseline Cr 0.9-1.1. Stable on admission Lab Results Component Value Date CREATSERUM 1.07 04/10/2024 CREATSERUM 1.18 04/09/2024 CREATSERUM 1.10 11/05/2023 Lab Results Component Value Date GFR 80 04/10/2024 GFR 72 04/09/2024 GFR >60 11/05/2023 Estimated Creatinine Clearance: 102 mL/min (by C-G formula based on SCr of 1.07 mg/dL). Electrolyte Monitoring - Maintain K > 4, Mg > 2 - Replete PRN - Na Lab Results Component Value Date SODIUM 137 04/10/2024 SODIUM 138 04/09/2024 SODIUM 140 11/05/2023 - K+ Lab Results Component Value Date POTASSIUM 4.1 04/10/2024 POTASSIUM 3.9 04/09/2024 POTASSIUM 3.8 04/09/2024 - Cl Lab Results Component Value Date CHLORIDE 101 04/10/2024 CHLORIDE 104 04/09/2024 CHLORIDE 104 11/05/2023 - Mg - hypomagnesemia - patient received 800mg PO 04/09 PM and 4g IVPB 04/10 AM. Replete as needed. Scheduled magnesium 800mg PO also in place Lab Results Component Value Date MAGNESIUM 1.7 04/09/2024 MAGNESIUM 1.8 04/09/2024 MAGNESIUM 2.0 05/23/2023 BRANNON on CPAP Patient states he is compliant with CPAP at home -Ordered CPAP Anemia of Chronic Disease Secondary to HF Lab Results Component Value Date HGB 13.5 04/10/2024 HGB 13.4 04/09/2024 HGB 13.1 (L) 11/07/2022 Lab Results Component Value Date IRON 87 04/09/2024 FERRITIN 36.2 04/09/2024 Lab Results Component Value Date TRANSFERRIN 292 04/09/2024 Lab Results Component Value Date TIBC 365 04/09/2024 Lab Results Component Value Date IRONSATURAT 24 04/09/2024 Class I Obesity (Body mass index is 34.65 kg/m .; Class I= 30-34.9, Class II= 35-39.9, Class III= > 40; <19 -consider cardiac cachexia) Patient given education regarding Lifestyle Modification Secondary to Excess Caloric intake and decreased Caloric Expenditure Complexity. Obesity Body mass index is 34.65 kg/m . - Follow with PCP for dietary and lifestyle modifications. Any conditions listed below are present on admission unless otherwise specified. . Multi-disciplinary decision making was completed with representatives from Heart Failure Cardiology, Psychology (Behavioral Cardiology), GENNA's, nursing and PharmDs. Objective: Temp: [97.5 F (36.4 C)-98.8 F (37.1 C)] 97.5 F (36.4 C) Pulse (Heart Rate): [58-88] 69 Resp Rate: [14-41] 20 BP: (86-143)/(50-93) 116/81 O2 Sat (%): [92 %-97 %] 97 % Weight: [119.1 kg (262 lb 9.6 oz)-119.8 kg (264 lb 1.8 oz)] 119.1 kg (262 lb 9.6 oz) Body mass index is 34.65 kg/m . Physical Exam Constitutional: He appears chronically ill. Eyes: Pupils are equal, round, and reactive to light. Neck: No JVD present. Cardiovascular: Normal rate and regular rhythm. Pulses: Radial pulses are 2+ on the right side and 2+ on the left side. Dorsalis pedis pulses are 2+ on the right side and 2+ on the left side. Posterior tibial pulses are 1+ on the right side and 1+ on the left side. Warm and dry Pulmonary/Chest: Breath sounds normal. He has no rales. He exhibits no tenderness. Abdominal: Soft. Bowel sounds are normal. Musculoskeletal: General: Edema (trace bilateral lower extremity edema) present. Normal range of motion. Neurological: He is alert and oriented to person, place, and time. Skin: Skin is warm and dry. 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 Ventricular tachycardia Recent Labs 04/09/24 1535 04/09/24 2214 04/10/24 0508 WBC 6.96 -- 7.05 HGB 13.4 -- 13.5 HCT 40.5 -- 40.9 PLATELET 220 -- 210 SODIUM 138 -- 137 POTASSIUM 3.8 3.9 4.1 CHLORIDE 104 -- 101 CO2 23 -- 26 BUN 16 -- 17 CREATSERUM 1.18 -- 1.07 BNP 145* -- -- Recent Labs 04/09/24 1535 04/10/24 0508 ALKPHOS 66 -- AST 20 -- ALT 8* -- ALBUMIN 3.9 -- INR 2.2* 1.9* Last Echo: 03/11/24 - [facility] Global left ventricular systolic function is difficult to assess but appears reduced, visually estimated EF 25-30% The right ventricle is mildly dilated with reduced systolic function Biatrial enlargement Grade III DD Mildly increased left ventricular wall thickness Mildly elevated RVSP 39mmHg Mild pulmonic regurgitation EKG: Atrial-sensed ventricular paced rhythm (calculated QT 344) [START ON 04/18/2024] AMIOdarone 200 mg Oral Daily AMIOdarone 400 mg Oral TID [START ON 04/11/2024] aspirin 81 mg Oral Daily eplerenone 25 mg Oral Daily magnesium oxide 400 mg Oral Daily Metoprolol succinate 25 mg Oral QHS Metoprolol succinate 50 mg Oral Daily mexiletine 200 mg Oral Q8H Potassium chloride 20 mEq Oral Daily Rosuvastatin 20 mg Oral QHS [Held by provider] sacubitril-valsartan 1 tablet Oral Q12H sacubitril-valsartan 1 tablet Oral QHS [START ON 04/13/2024] Warfarin 5 mg Oral Q MWF [START ON 04/11/2024] Warfarin 7.5 mg Oral Once per day on Saturday Warfarin 7.5 mg Oral Once amiodarone 1 mg/min (04/10/24 1202) Sodium chloride 0.9% 300 mL/hr (04/10/24 1017) Discussed with team on rounds. This plan will be discussed with Dr. Emmy Moura MD, the attending production cost estimator. DISCHARGE PLANNING: Dispo/Debility -Home Follow Up Appointments: TBD Please Ensure Follow Up Labs / Testing are scheduled: TBD Ann Smith APRN-FUNERAL HOME ASSOCIATE HF2/Advanced Heart Failure Phone: [phone] Associated attestation - Emmy Moura MD - 04/10/2024 3:40 PM EDT HF 2 Attending Attestation: I saw and personally examined this patient on 04/10/2024 during inpatient rounds with the HF GENNA on the HF2 service. I provided a substantive portion of care for this patient. I personally performed all aspects of the medical decision making for this encounter. I have reviewed and verified this documentation and it accurately reflects our care. 58 yo man with hx of DCM (chemotherapy-induced - received anthracycline for lymphoma in 2006). He has HFrEF and recurrent, frequent episodes of VT. His LVEF 30%. On reasonable GDMT, he has NYHA class II sx, including dyspnea with fast walking or lifting. He recently had ICD shock, and is admitted for adjustment and monitoring of antiarrhythmic therapy. Given the increased freq of VT, LHC done today showing moderate ASCVD - 30-40% prox LAD disease. No high-grade lesions requiring PCI. Plan: - optimize HF therapy - increase statin (LDL goal is < 50 for this pt) - add mexiletine 200 q8hrs. - Amio load - cMRI in preparation for eventual outpt epicardial ablation. Emmy Moura M.D. squeegee tender Advanced Heart Failure Program Division of Cardiovascular Medicine [facility] [email or web address] ph [phone] fax [phone] documented in this encounter [facility] 04-11-2024 Nurse Note The patient left the unit despite my advice on the associated risks. Practitioner, Naty, was notified. The associated risks discussed include: And/or any condition in the judgment of the care team may compromise the patient's safety. The patient is aware of the risk of having another arrhythmia event. He agreed to wait until his was with him. [facility] 04-10-2024 Plan of care note Problem: Adult Inpatient Plan of Care Goal: Plan of Care Review Outcome: Progressing Goal: Patient-Specific Goal (Individualized) Outcome: Progressing Goal: Absence of Hospital-Acquired Illness or Injury Outcome: Progressing Goal: Optimal Comfort and Wellbeing Outcome: Progressing Goal: Readiness for Transition of Care Outcome: Progressing Problem: Fall Injury Risk Goal: Fall/Trauma/Injury Risk: Absence of Trauma/Injury/Falls Description: Patient will demonstrate the desired outcomes. Outcome: Progressing Goal: Knowledge of risk factors/behavior modification Description: Knowledge of risk factors/behavior modification for fall/injury prevention Outcome: Progressing [facility] 04-10-2024 Consult note Associated Order (s): IP CONSULT TO CARDIOLOGY - EP EP Consultation Patient Name: Tania Venegas Date of Consult: 04/10/2024 Reason for Consultation: ICD shock IMPRESSION & RECOMMENDATIONS: Tania Venegas is a 58 y.o. male who was seen by the Cardiology Consult Service on 04/10/2024. We are asked to assist in management of ICD shock. IMPRESSION ICD shock- device interrogation shows 2 VF and 58 VT detections. Device strips show PVC initiation of VT concerning for re-entrant VT. Cath showed non-obstructive coronary artery disease. He would benefit from increase in amiodarone and addition of mexiletine for VT suppression moving forward. He should have CMR to evaluate myocardium to assist with determining best approach for treating VT (sympathetic denervation vs VT ablation, endocardial +/- epicardial. History of cardiac perforation during prior AF ablation may preclude epicardial ablation. NICM s/p GENERAL SCRAP WORKER-D (LVEF 25-30%) Persistent atrial fibrillation s/p ablation (c/b perforation in 2016) and CTI ablation (2016 and 2020) Mild coronary artery disease RECOMMENDATIONS - Recommend transitioning IV amiodarone to PO amiodarone 400mg TID x7 days, then 400mg daily, then 200mg daily as maintenance - Continue mexiletine 200 mg TID - Please obtain CMR to help determine suitability for sympathetic denervation or endo- and /or epicardial VT ablation. Final plan pending CMR results. - If patient had progressive VT while inpatient, we will consider completing these procedures as inpatient Dinh Acuna MD Commercial Escrow Assistant, PGY-6 Pager: [phone] This consult was discussed with Dr. Cox, attending physician. If you have any questions or need any further information, please feel free to contact the EP Consult Service. Thank you for allowing us to participate in the care of Tania Venegas. HPI: Tania Venegas is a 58 y.o. male with a history of NICM s/p GENERAL SCRAP WORKER-D, atrial fibrillation s/p ablation (c/b perforation) and CTI, PVC / VT Patient presented following ICD shock on 04/04/24. He notes recent fatigue and dyspnea on exertion. He also had been having dizzy spells. He had device interrogation showing 2 VF detections and 58 VT detections since 05/2023. He was admitted from heart failure clinic. Patient had cath that was non-obstructive. PAST MEDICAL HISTORY: PAST MEDICAL HISTORY He has a past medical history of A-fib, Arrhythmia, Arthritis, Atherosclerotic heart disease [place] coronary artery w/angina pectoris (04/10/2024), Bradycardia, Carcinoma of colon, Chest pain, CHF (congestive heart failure), Diastolic dysfunction, Hypertension, Lymphoma, Nonischemic congestive cardiomyopathy, Pacemaker, Restless legs, Sleep apnea, Systolic dysfunction, and Systolic heart failure. He has no past medical history of Anemia, Asthma, Bleeding disorder, COPD (chronic obstructive pulmonary disease), Depression, Diabetes mellitus, GERD (gastroesophageal reflux disease), Glaucoma, Hepatitis, HIV (human immunodeficiency virus infection), Hyperlipidemia, Hyperthyroidism, Hypothyroidism, Liver disease, DE (myocardial infarction), Migraine, Renal disease, Seizure, Sickle cell anemia, Stroke, TIA (transient ischemic attack), or Vascular disease. SOCIAL HISTORY He reports that he has never smoked. He has never used smokeless tobacco. He reports current alcohol use. He reports that he does not use drugs. FAMILY HISTORY His family history includes Colorectal Cancer in his father; Other - Specify in his father and mother. He He indicated that his mother is . He indicated that his father is . PAST SURGICAL HISTORY His has a past surgical history that includes icd placement; foot surgery (Bilateral); and atrial fibrillation ablation (N/A, 07/19/2017). ALLERGIES Allergies Allergen Reactions Seasonal [*Seasonal] hayfever HOME MEDICATIONS Medications Prior to Admission Medication Sig Dispense Refill Last Dose AMIOdarone 200 MG tablet Take 0.5 tablets by mouth daily. 45 tablet 1 04/09/2024 aspirin 81 MG Chew Tab chewable tablet Chew 1 tablet daily. 30 tablet 0 Past Week Entresto 49-51 MG tablet Take 1 tablet by mouth 2 times daily. 180 tablet 2 04/09/2024 eplerenone 25 MG tablet Take 1 tablet by mouth daily. 90 tablet 3 04/08/2024 furOSEmide 40 MG tablet Take 1 tablet by mouth daily as needed. Past Month Metoprolol succinate 50 MG tablet XL 50mg QAM + 25mg QPM 135 tablet 1 04/09/2024 rosuvastatin 10 MG tablet Take 1 tablet by mouth daily. Past Week Slow Magnesium/Calcium 70-[address] Take 1 tablet by mouth daily. 04/09/2024 warfarin 5 MG tablet Take 1 tablet by mouth every evening at 6 PM. INR managed at [facility] 04/08/2024 CURRENT MEDICATIONS [START ON 04/18/2024] AMIOdarone 200 mg Oral Daily AMIOdarone 400 mg Oral TID [START ON 04/11/2024] aspirin 81 mg Oral Daily eplerenone 25 mg Oral Daily magnesium oxide 400 mg Oral Daily Metoprolol succinate 25 mg Oral QHS Metoprolol succinate 50 mg Oral Daily mexiletine 200 mg Oral Q8H Potassium chloride 20 mEq Oral Daily Rosuvastatin 20 mg Oral QHS [Held by provider] sacubitril-valsartan 1 tablet Oral Q12H sacubitril-valsartan 1 tablet Oral QHS [START ON 04/13/2024] Warfarin 5 mg Oral Q MWF [START ON 04/11/2024] Warfarin 7.5 mg Oral Once per day on Saturday Warfarin 7.5 mg Oral Once amiodarone 1 mg/min (04/10/24 1202) Sodium chloride 0.9% 300 mL/hr (04/10/24 1017) REVIEW OF SYSTEMS: General: +fatigued; denies fevers, chills, malaise, weight loss, night sweats HEENT: denies headache, vision changes, hearing changes, rhinorrhea, sore throat Respiratory: +shortness of breath; denies cough Cardiovascular: denies palpitations, chest pain, orthopnea, edema GI/: denies nausea, vomiting, abdominal pain, diarrhea, dysuria, hematuria Extremities: denies myalgias, edema Skin: no rash Neuro: +dizzy; no change in sensation, loss of consciousness Psych: denies anxiety, depression, substance abuse PHYSICAL EXAM: Intake/Output Summary (Last 24 hours) at 04/10/2024 1415 Last data filed at 04/10/2024 1402 Gross per 24 hour Intake 675 ml Output 2975 ml Net -2300 ml Temp: [97.5 F (36.4 C)-98.8 F (37.1 C)] 97.5 F (36.4 C) Pulse (Heart Rate): [58-88] 69 Resp Rate: [14-41] 20 BP: (86-143)/(50-93) 116/81 O2 Sat (%): [92 %-97 %] 97 % Weight: [119.1 kg (262 lb 9.6 oz)-119.8 kg (264 lb 1.8 oz)] 119.1 kg (262 lb 9.6 oz) Physical Exam General appearance - alert and oriented, and in no distress. Neck - supple, normal JVP. Chest - clear to auscultation, no wheezing, rales or rhonchi, not in acute resp distress. Heart - normal rate, regular rhythm, normal s1/s2, no murmurs, rubs, or gallops Peripheral vascular: peripheral pulses normal Abdomen - soft, non-tender, non-distended, normal bowel sounds. Extremities - warm and well perfused. no edema. Skin - normal color and turgor, no generalized rash. Psych - mood appropriate. Neuro - mentation intact, moving all extremities independently. DATA REVIEWED: EKG (04/10/24): GENERAL SCRAP WORKER- pacing Telemetry Data: GENERAL SCRAP WORKER pacing, brief runs of NSVT Lab Results Component Value Date SODIUM 137 04/10/2024 SODIUM 140 11/05/2023 POTASSIUM 4.1 04/10/2024 POTASSIUM 3.9 11/05/2023 GLUCOSE 108 (H) 04/10/2024 GLUCOSE 101 09/19/2022 CHLORIDE 101 04/10/2024 CHLORIDE 104 11/05/2023 CO2 26 04/10/2024 CO2 31.1 11/05/2023 BUN 17 04/10/2024 BUN 17.0 11/05/2023 CREATSERUM 1.07 04/10/2024 CREATSERUM 1.10 11/05/2023 TSH 1.311 04/09/2024 TSH 1.108 12/10/2018 Lab Results Component Value Date WBC 7.05 04/10/2024 WBC 6.66 12/10/2018 HGB 13.5 04/10/2024 HGB 13.4 12/10/2018 HCT 40.9 04/10/2024 HCT 40.7 12/10/2018 PLATELET 210 04/10/2024 PLATELET 220 12/10/2018 MCV 91.7 04/10/2024 MCV 86.6 12/10/2018 Lab Results Component Value Date BNP 145 (H) 04/09/2024 BNP 1,159 11/05/2023 BNP 201 (H) 01/04/2022 EP study (11/2018) This is a 53 y.o. male with a history of S/P AFib ablation in [place] that was complicated by cardiac perforation and had recurrent atrial fibrillation on amiodarone and then underwent GENERAL SCRAP WORKER defibrillator implant. He then underwent a repeat ablation, and he remains on Tikosyn with no further atrial fibrillation, CHADSVASC SCORE of 1, but has high-grade ventricular ectopy who was referred for EPS+/-VT RFA with carto. Recent holter monitor showed PVC burden of 7%. ECG showed a PVC with a LB/SA, +I and +aVL. The patient arrived to the EP laboratory in sinus rhythm with PVCs. PVCs with a LB/SA morphology. Activation mapping, using 3D carto. We were able to find a pre-systolic location in the left posteroseptal LV near the annulus by ~20-30ms. Multiple applications in this region were applied with prolonged suppression, but PVC continued to come back despite multiple applications at 45W with fair stability. TTE (02/2024): LVEF 25-30% Associated attestation - Alexander Cox MD - 04/10/2024 2:47 PM EDT EP Staff: Patient EP plan progressing well. I discussed plan with patient and/or family/staff and answered questions. Physical Exam: Constitutional: Alert and oriented x 3 Eyes: Extraocular motions are normal. Musculoskeletal: No edema. Neurological: Nonfocal Skin: Skin is warm and dry. Psychiatric: Affect normal. I have independently seen and examined the patient and agree with the history, physicial, assessment and plan of the my analog device designer as addended by me. Alexander Cox MD04/10/2024 [facility] Work Phone: 04-10-2024 Consult note Associated Order (s): IP CONSULT TO CARDIOLOGY - EP EP Consultation Patient Name: Tania Venegas Date of Consult: 04/10/2024 Reason for Consultation: ICD shock IMPRESSION & RECOMMENDATIONS: Tania Venegas is a 58 y.o. male who was seen by the Cardiology Consult Service on 04/10/2024. We are asked to assist in management of ICD shock. IMPRESSION ICD shock- device interrogation shows 2 VF and 58 VT detections. Device strips show PVC initiation of VT concerning for re-entrant VT. Cath showed non-obstructive coronary artery disease. He would benefit from increase in amiodarone and addition of mexiletine for VT suppression moving forward. He should have CMR to evaluate myocardium to assist with determining best approach for treating VT (sympathetic denervation vs VT ablation, endocardial +/- epicardial. History of cardiac perforation during prior AF ablation may preclude epicardial ablation. NICM s/p GENERAL SCRAP WORKER-D (LVEF 25-30%) Persistent atrial fibrillation s/p ablation (c/b perforation in 2016) and CTI ablation (2016 and 2020) Mild coronary artery disease RECOMMENDATIONS - Recommend transitioning IV amiodarone to PO amiodarone 400mg TID x7 days, then 400mg daily, then 200mg daily as maintenance - Continue mexiletine 200 mg TID - Please obtain CMR to help determine suitability for sympathetic denervation or endo- and /or epicardial VT ablation. Final plan pending CMR results. - If patient had progressive VT while inpatient, we will consider completing these procedures as inpatient Dinh Acuna MD Commercial Escrow Assistant, PGY-6 Pager: [phone] This consult was discussed with Dr. Cox, attending physician. If you have any questions or need any further information, please feel free to contact the EP Consult Service. Thank you for allowing us to participate in the care of Tania Venegas. HPI: Tania Venegas is a 58 y.o. male with a history of NICM s/p GENERAL SCRAP WORKER-D, atrial fibrillation s/p ablation (c/b perforation) and CTI, PVC / VT Patient presented following ICD shock on 04/04/24. He notes recent fatigue and dyspnea on exertion. He also had been having dizzy spells. He had device interrogation showing 2 VF detections and 58 VT detections since 05/2023. He was admitted from heart failure clinic. Patient had cath that was non-obstructive. PAST MEDICAL HISTORY: PAST MEDICAL HISTORY He has a past medical history of A-fib, Arrhythmia, Arthritis, Atherosclerotic heart disease [place] coronary artery w/angina pectoris (04/10/2024), Bradycardia, Carcinoma of colon, Chest pain, CHF (congestive heart failure), Diastolic dysfunction, Hypertension, Lymphoma, Nonischemic congestive cardiomyopathy, Pacemaker, Restless legs, Sleep apnea, Systolic dysfunction, and Systolic heart failure. He has no past medical history of Anemia, Asthma, Bleeding disorder, COPD (chronic obstructive pulmonary disease), Depression, Diabetes mellitus, GERD (gastroesophageal reflux disease), Glaucoma, Hepatitis, HIV (human immunodeficiency virus infection), Hyperlipidemia, Hyperthyroidism, Hypothyroidism, Liver disease, DE (myocardial infarction), Migraine, Renal disease, Seizure, Sickle cell anemia, Stroke, TIA (transient ischemic attack), or Vascular disease. SOCIAL HISTORY He reports that he has never smoked. He has never used smokeless tobacco. He reports current alcohol use. He reports that he does not use drugs. FAMILY HISTORY His family history includes Colorectal Cancer in his father; Other - Specify in his father and mother. He He indicated that his mother is . He indicated that his father is . PAST SURGICAL HISTORY His has a past surgical history that includes icd placement; foot surgery (Bilateral); and atrial fibrillation ablation (N/A, 07/19/2017). ALLERGIES Allergies Allergen Reactions Seasonal [*Seasonal] hayfever HOME MEDICATIONS Medications Prior to Admission Medication Sig Dispense Refill Last Dose AMIOdarone 200 MG tablet Take 0.5 tablets by mouth daily. 45 tablet 1 04/09/2024 aspirin 81 MG Chew Tab chewable tablet Chew 1 tablet daily. 30 tablet 0 Past Week Entresto 49-51 MG tablet Take 1 tablet by mouth 2 times daily. 180 tablet 2 04/09/2024 eplerenone 25 MG tablet Take 1 tablet by mouth daily. 90 tablet 3 04/08/2024 furOSEmide 40 MG tablet Take 1 tablet by mouth daily as needed. Past Month Metoprolol succinate 50 MG tablet XL 50mg QAM + 25mg QPM 135 tablet 1 04/09/2024 rosuvastatin 10 MG tablet Take 1 tablet by mouth daily. Past Week Slow Magnesium/Calcium 70-[address] Take 1 tablet by mouth daily. 04/09/2024 warfarin 5 MG tablet Take 1 tablet by mouth every evening at 6 PM. INR managed at [facility] 04/08/2024 CURRENT MEDICATIONS [START ON 04/18/2024] AMIOdarone 200 mg Oral Daily AMIOdarone 400 mg Oral TID [START ON 04/11/2024] aspirin 81 mg Oral Daily eplerenone 25 mg Oral Daily magnesium oxide 400 mg Oral Daily Metoprolol succinate 25 mg Oral QHS Metoprolol succinate 50 mg Oral Daily mexiletine 200 mg Oral Q8H Potassium chloride 20 mEq Oral Daily Rosuvastatin 20 mg Oral QHS [Held by provider] sacubitril-valsartan 1 tablet Oral Q12H sacubitril-valsartan 1 tablet Oral QHS [START ON 04/13/2024] Warfarin 5 mg Oral Q MWF [START ON 04/11/2024] Warfarin 7.5 mg Oral Once per day on Saturday Warfarin 7.5 mg Oral Once amiodarone 1 mg/min (04/10/24 1202) Sodium chloride 0.9% 300 mL/hr (04/10/24 1017) REVIEW OF SYSTEMS: General: +fatigued; denies fevers, chills, malaise, weight loss, night sweats HEENT: denies headache, vision changes, hearing changes, rhinorrhea, sore throat Respiratory: +shortness of breath; denies cough Cardiovascular: denies palpitations, chest pain, orthopnea, edema GI/: denies nausea, vomiting, abdominal pain, diarrhea, dysuria, hematuria Extremities: denies myalgias, edema Skin: no rash Neuro: +dizzy; no change in sensation, loss of consciousness Psych: denies anxiety, depression, substance abuse PHYSICAL EXAM: Intake/Output Summary (Last 24 hours) at 04/10/2024 1415 Last data filed at 04/10/2024 1402 Gross per 24 hour Intake 675 ml Output 2975 ml Net -2300 ml Temp: [97.5 F (36.4 C)-98.8 F (37.1 C)] 97.5 F (36.4 C) Pulse (Heart Rate): [58-88] 69 Resp Rate: [14-41] 20 BP: (86-143)/(50-93) 116/81 O2 Sat (%): [92 %-97 %] 97 % Weight: [119.1 kg (262 lb 9.6 oz)-119.8 kg (264 lb 1.8 oz)] 119.1 kg (262 lb 9.6 oz) Physical Exam General appearance - alert and oriented, and in no distress. Neck - supple, normal JVP. Chest - clear to auscultation, no wheezing, rales or rhonchi, not in acute resp distress. Heart - normal rate, regular rhythm, normal s1/s2, no murmurs, rubs, or gallops Peripheral vascular: peripheral pulses normal Abdomen - soft, non-tender, non-distended, normal bowel sounds. Extremities - warm and well perfused. no edema. Skin - normal color and turgor, no generalized rash. Psych - mood appropriate. Neuro - mentation intact, moving all extremities independently. DATA REVIEWED: EKG (04/10/24): GENERAL SCRAP WORKER- pacing Telemetry Data: GENERAL SCRAP WORKER pacing, brief runs of NSVT Lab Results Component Value Date SODIUM 137 04/10/2024 SODIUM 140 11/05/2023 POTASSIUM 4.1 04/10/2024 POTASSIUM 3.9 11/05/2023 GLUCOSE 108 (H) 04/10/2024 GLUCOSE 101 09/19/2022 CHLORIDE 101 04/10/2024 CHLORIDE 104 11/05/2023 CO2 26 04/10/2024 CO2 31.1 11/05/2023 BUN 17 04/10/2024 BUN 17.0 11/05/2023 CREATSERUM 1.07 04/10/2024 CREATSERUM 1.10 11/05/2023 TSH 1.311 04/09/2024 TSH 1.108 12/10/2018 Lab Results Component Value Date WBC 7.05 04/10/2024 WBC 6.66 12/10/2018 HGB 13.5 04/10/2024 HGB 13.4 12/10/2018 HCT 40.9 04/10/2024 HCT 40.7 12/10/2018 PLATELET 210 04/10/2024 PLATELET 220 12/10/2018 MCV 91.7 04/10/2024 MCV 86.6 12/10/2018 Lab Results Component Value Date BNP 145 (H) 04/09/2024 BNP 1,159 11/05/2023 BNP 201 (H) 01/04/2022 EP study (11/2018) This is a 53 y.o. male with a history of S/P AFib ablation in [place] that was complicated by cardiac perforation and had recurrent atrial fibrillation on amiodarone and then underwent GENERAL SCRAP WORKER defibrillator implant. He then underwent a repeat ablation, and he remains on Tikosyn with no further atrial fibrillation, CHADSVASC SCORE of 1, but has high-grade ventricular ectopy who was referred for EPS+/-VT RFA with carto. Recent holter monitor showed PVC burden of 7%. ECG showed a PVC with a LB/SA, +I and +aVL. The patient arrived to the EP laboratory in sinus rhythm with PVCs. PVCs with a LB/SA morphology. Activation mapping, using 3D carto. We were able to find a pre-systolic location in the left posteroseptal LV near the annulus by ~20-30ms. Multiple applications in this region were applied with prolonged suppression, but PVC continued to come back despite multiple applications at 45W with fair stability. TTE (02/2024): LVEF 25-30% Associated attestation - Alexander Cox MD - 04/10/2024 2:47 PM EDT EP Staff: Patient EP plan progressing well. I discussed plan with patient and/or family/staff and answered questions. Physical Exam: Constitutional: Alert and oriented x 3 Eyes: Extraocular motions are normal. Musculoskeletal: No edema. Neurological: Nonfocal Skin: Skin is warm and dry. Psychiatric: Affect normal. I have independently seen and examined the patient and agree with the history, physicial, assessment and plan of the my analog device designer as addended by me. 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 No hematoma noted. Right groin dressing dry and intact, no signs of hematoma or complications. Pt on bed rest for two hours and is well aware. [facility] 04-10-2024 Surgery Postoperative evaluation and management note Preliminary Report - Brief Cardiac Catheterization Procedure Note Tania Venegas ([id number]) Pre Procedural Diagnosis AICD discharge [Z45.02] Post Procedural Diagnosis AICD discharge [Z45.02] Procedure Performed Left heart catheterization and Coronary angiogram Access Site/Hemostasis Right femoral artery, TR Compression Band Right radial, artery, Perclose Findings Left Ventricular End Diastolic Pressure: Normal Left Ventricular Ejection Fraction: Not assessed Preliminary Results of Angiography Non-obstructive CAD Percutaneous Coronary Intervention No Intervention Intraprocedure Anticoagulation None Post-procedure Anticoagulation If anticoagulation is indicated per primary team, may restart 4 hours after hemostasis has been achieved Estimated Blood Loss Minimal Complications None Admission Does patient need to be admitted: Currently admitted Surgeon Surgeons and Role: * Elisabet Barnhart MD - Primary * Bryan Salinas MD - Fellow Procedural Staff Bundle Cutter: Galo Vernon RN; Matthias Mclean RN Documenter: Ashley Hare RN Full report to follow Bryan Salinas MD April 10, 2024 9:08 AM [facility] Work Phone: 04-09-2024 Plan of care note Problem: Adult Inpatient Plan of Care Goal: Plan of Care Review Outcome: Progressing Flowsheets (Taken 04/09/20242000) Plan of Care Reviewed With: patient Goal: Patient-Specific Goal (Individualized) Outcome: Progressing Goal: Absence of Hospital-Acquired Illness or Injury Outcome: Progressing Problem: Fall Injury Risk Goal: Knowledge of risk factors/behavior modification Description: Knowledge of risk factors/behavior modification for fall/injury prevention Outcome: Progressing [facility] 04-09-2024 Plan of care note Asked to provide input on AAD for recurrent VT. Hx of NICM, AF, VT, PVCs. 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 Partial evaluation done today shows capture and sensing threshold and impedances appropriate. Did not perform manual capture threshold checks due to amount of VT over the last week. Percent paced: RA: 17%, GENERAL SCRAP WORKER: 82%. GENERAL SCRAP WORKER pacing is likely low due to ventricular ectopy over the last month. Since 06.05.2023 there have been 2 VF episodes with 1 episode on 04.04.24 @ 16:13 lasting 27 seconds in duration with average ventricular rate of 255 bpm that was treated with 1 scheme of ATP and 1 shock (no EGM available for this episode due to amount of alert worthy episodes since shock occurred) and the other episode on 04.06.24 @ 23:07 treated with 1 scheme of ATP with available EGM showing VT in the VF zone of 204 bpm lasting 10 seconds in duration successfully converted to sinus with BiVP. There were additionally 6 aborted shocks, again no EGM's available due to amount of notifications. There have been 58 VT detections (of note, these are all monitor as patient only has VF zone programmed >200 bpm), with all available EGM's showing VT lasting 9 seconds to 1 minute 30 seconds with average ventricular rates of 164 bpm - 190 bpm. There also have been 32 NSVT detections with available EGM's showing NSVT lasting 6-10 seconds in duration with average ventricular rates of 167-202 bpm. It is noted that most of these episodes happened in clusters on March 29, and April 04-today. Additionally there have been 519 atrial mode switches with available EGM's showing AF with BiVP lasting 28 seconds - 6 hours in duration. Total AT/AF burden is <1%. The battery should have approximately 5 months of service remaining. Changes made to the device today: none. Discussed findings with Dr. Hurtado who called Dr. Cox who is the rounding EP. It was determined due to amount of VT patient has been having an urgent cath and medication loading is warranted. Patient was with and daughter and all three were in agreement of direct admission. Recs: - amio iv bolus 150mg iv - amio drip 1mg/min - start leigha 200mg q8h with meals - if ongoing sustained vt after these measures, okay to hold leigha and start lido 1mg/min after 100mg bolus - full ep consult note in am [facility] Work Phone: 04-09-2024 History and physical note Heart Failure 2/Advanced Heart Failure HISTORY AND PHYSICAL IDENTIFYING INFORMATION PATIENT: Tania Venegas ADMIT DATE: 04/09/2024 TIME OF EVALUATION: 04/10/2024 12:37 AM HISTORIAN: Patient and chart review Plan of Care: - INR 2.2 plan for [facility] tomorrow (case placed) - Vitamin K+ 5mg tonight - Holding home coumadin - Consult EP - Start Amio IV bolus 150mg+ Amio drip at 1mg/min - Start leigha 200mg q8h - Continue home GDMT > 45 min spent with patient, reviewing pertinent information, and discussing plan of care with the multidisciplinary team. CHIEF COMPLAINT Recent ICD shock and LOC HISTORY OF PRESENT ILLNESS Tania Venegas is a 58 y.o. 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 Patient reported a shock delivered on 04/04 while he was ambulating at home and had LOC. Patient denied hitting his head, CP, diaphoresis, N/V, SOB. He was seen by HF in [place] on 02/26/24 with no med changes and VO2 planned. He is cardiac rehab 3 days a week for a few weeks and thinks he is improving in activity tolerance. He is taking lasix 40 mg prn which is about every 1.5 weeks. Weight ranges 260-265 lbs. He has less GRAF but reports lightheaded episodes for a few seconds that can occur anytime (with rest and not consistently with standing). However, he has been dizzy very frequently in the past few weeks, even this morning. He noticed this same feeling on Saturday, 04/04 before he was shocked. BP at home is running 100/70 mmHg. Good appetite and finishes meals. 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 No chest pain/pressure/discomfort, orthopnea, no PND, stable peripheral edema, no nausea/vomiting. He uses CPAP nightly for 4-6 hrs. HEART FAILURE HISTORY Primary HF Physician Dr Hurtado Etiology of HF NICM Home GDMT Lasix, Entresto, eplerenone, Toprol XL Dry Weight Last Admission 01/18- (CTI ablation) Last Ischemic Eval 08/2019 PCP Oliver Springer Jr. Last Echo/MRI 02/[address] [facility] GENERAL SCRAP WORKER-D PAST MEDICAL, SURGICAL, FAMILY, and SOCIAL HISTORY Past Medical History: Diagnosis Date A-fib Arrhythmia Arthritis Bradycardia Carcinoma of colon Chest pain secondary to pericarditis CHF (congestive heart failure) Diastolic dysfunction Hypertension Lymphoma Nonischemic congestive cardiomyopathy Pacemaker Restless legs Sleep apnea Systolic dysfunction Systolic heart failure s/p biventricular implantable cardioveter defibrillator placement Past Surgical History: Procedure Laterality Date ATRIAL FIBRILLATION ABLATION N/A 07/19/2017 Laterality: N/A; Surgeon: Alexander Cox MD; Location: [facility] EP FOOT SURGERY Bilateral ICD PLACEMENT Family History Problem Relation Age of Onset Other - Specify Mother Accident Colorectal Cancer Father Other - Specify Father COPD Social History Socioeconomic History Marital status: Tobacco Use Smoking status: Never Smokeless tobacco: Never Vaping Use Vaping status: Never Used Substance and Sexual Activity Alcohol use: Yes Comment: occasionally few beers-not weekly Drug use: Never Social Determinants of Health Received from [facility] Safety & Environment MEDICATIONS Prior to Admission Medications Prescriptions Last Dose Informant Patient Reported? Taking? AMIOdarone 200 MG tablet 04/09/2024 No Yes Sig: Take 0.5 tablets by mouth daily. Entresto 49-51 MG tablet 04/09/2024 No Yes Sig: Take 1 tablet by mouth 2 times daily. Metoprolol succinate 50 MG tablet XL 04/09/2024 No Yes Simg QAM + 25mg QPM Slow Magnesium/Calcium 70-[address] 04/09/2024 Yes Yes Sig: Take 1 tablet by mouth daily. aspirin 81 MG Chew Tab chewable tablet Past Week No Yes Sig: Chew 1 tablet daily. eplerenone 25 MG tablet 04/08/2024 No Yes Sig: Take 1 tablet by mouth daily. furOSEmide 40 MG tablet Past Month Yes Yes Sig: Take 1 tablet by mouth daily as needed. rosuvastatin 10 MG tablet Past Week Yes Yes Sig: Take 1 tablet by mouth daily. warfarin 5 MG tablet 04/08/2024 Yes Yes Sig: Take 1 tablet by mouth every evening at 6 PM. INR managed at [facility] Facility-Administered Medications: None I have personally reviewed the medication list, verified it, and updated it via the Medication Reconciliation Navigator: [ X ]Verbally with the patient []With the patient's personal medication list []Verbally with the patient's family member []Verbally with the facility's MAR []With the patient's Pharmacy ALLERGIES: He is allergic to seasonal [*seasonal]. REVIEW OF SYSTEMS Review of Systems Review of Systems Constitutional: Negative for chills, decreased appetite, diaphoresis, fever, malaise/fatigue, weight gain and weight loss. HENT: Negative. Eyes: Negative. Cardiovascular: Positive for palpitations and syncope. Negative for chest pain, dyspnea on exertion, irregular heartbeat and leg swelling. Respiratory: Positive for shortness of breath. Negative for cough and wheezing. Endocrine: Negative. Hematologic/Lymphatic: Negative. Skin: Negative. Musculoskeletal: Negative. Gastrointestinal: Negative for bloating, abdominal pain, nausea and vomiting. Genitourinary: Negative. Neurological: Positive for dizziness and light-headedness. Psychiatric/Behavioral: Negative. PHYSICAL EXAM Temp: [97.7 F (36.5 C)-98.8 F (37.1 C)] Pulse (Heart Rate): [71-88] BP: (130-143)/(78-93) Resp Rate: [16-18] O2 Sat (%): [93 %-96 %] MEWS Score (AutoCalculated): [1] Body mass index is 34.85 kg/m . Physical Exam Constitutional: He appears chronically ill. Eyes: Conjunctivae are normal. Neck: No JVD present. Cardiovascular: Normal rate. An irregular rhythm present. Pulses: Radial pulses are 2+ on the right side and 2+ on the left side. Warm and dry Pulmonary/Chest: Breath sounds normal. He has no wheezes. He has no rales. He exhibits no tenderness. Abdominal: Soft. Bowel sounds are normal. He exhibits no distension. Musculoskeletal: General: Edema (Trace pitting edema) present. Cervical back: Normal range of motion. Neurological: He is alert and oriented to person, place, and time. Skin: Skin is warm and dry. LABS AND IMAGING All recent labs and imaging personally review: No results found for: LDH Recent Labs 04/09/24 1535 04/09/242213 WBC 6.96 -- HGB 13.4 -- HCT 40.5 -- PLATELET 220 -- SODIUM 138 -- POTASSIUM 3.8 3.9 CHLORIDE 104 -- CO2 23 -- BUN 16 -- CREATSERUM 1.18 -- GLUCOSE 114* -- CALCIUM 8.9 -- MAGNESIUM 1.8 1.7 PHOSPHORUS 2.8 -- Ptt/Pt/Inr: --/24.2/2.2 (04/09 153) Recent Labs 04/09/241534 BNP 145* No results found for: HSTROP Imaging XR CHEST 1 VIEW PORTABLE Final Result IMPRESSION: Left-sided pacer was placed. No complication. Last Echo: Results for orders placed in visit on 03/11/24 ECHOCARDIOGRAM (OUTSIDE) (Final) Last Ischemic Eval: [facility] around 2016 ([facility]): no CAD [facility] 09/03/2019 ([facility]): mild non-obstructive CAD Last Right Heart Cath: [facility] 09/03/2019 ([facility]): RA 6, PA 38/18 (29) PCWP 18, CI: 3.1 Pertinent Diagnosis VF/VT/ hx of PVCs and bradycardia s/p GENERAL SCRAP WORKER-D -Follows with EP. Unsuccessful ablation due to epicardial location, high risk to re-attempt. On anti-arrhythmic medications - amiodarone only, unable to afford ranolazine. PFTs repeated in Oct 2022 with normal DLCO. Amiodarone reduced since he was not having further afib issues and improvement in PVCs. Presenting with ICD shock on 04/04 with LOC at home. Device interrogation on 04/09 Percent paced: RA: 17%, GENERAL SCRAP WORKER: 82%. GENERAL SCRAP WORKER pacing is likely low due to ventricular ectopy over the last month. Since 06.05.2023 there have been 2 VF episodes with 1 episode on 24 @ 16:13 lasting 27 seconds in duration with average ventricular rate of 255 bpm that was treated with 1 scheme of ATP and 1 shock (no EGM available for this episode due to amount of alert worthy episodes since shock occurred) and the other episode on 24 @ 23:07 treated with 1 scheme of ATP with available EGM showing VT in the VF zone of 204 bpm lasting 10 seconds in duration successfully converted to sinus with BiVP. There were additionally 6 aborted shocks, again no EGM's available due to amount of notifications. There have been 58 VT detections (of note, these are all monitor as patient only has VF zone programmed >200 bpm), with all available EGM's showing VT lasting 9 seconds to 1 minute 30 seconds with average ventricular rates of 164 bpm - 190 bpm. There also have been 32 NSVT detections with available EGM's showing NSVT lasting 6-10 seconds in duration with average ventricular rates of 167-202 bpm. It is noted that most of these episodes happened in clusters on March 29, and April 04-today. Additionally there have been 519 atrial mode switches with available EGM's showing AF with BiVP lasting 28 seconds - 6 hours in duration. Total AT/AF burden is <1%. - Consult EP - Start Amio IV bolus 150mg+ Amio drip at 1mg/min - Start leigha 200mg q8h - if ongoing sustained vt after these measures, okay to hold leigha and start lido 1mg/min after 100mg bolus [place] Coronary Artery Disease [facility] 05/10/2016: LAD 30-40% ostial stenosis, 30% mid vessel stenosis. Circumflex shows minimal plaque disease. RCA shows mild plaque disease. [facility] 09/03/2019 ([facility]): Mild coronary artery disease. 30% ostial and 30% mid LAD stenosis. 20% stenosis in the proximal segment of the PLV branch of the RCA. Minimal disease in the circumflex vessel Beta Ashley: Toprol XL 50mgAM/ 25mg PM Statin: Crestor 10mg daily Anti Platelet:ASA 81mg Anti Anginal: Chronic systolic heart failure/ NICM Recent Echo 02/2024 showed LVEF 31%. 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 On exam no JVP, noticed bilateral trace pitting edema. BNP 145. At clinic today 04/10 Dr. Hurtado discussed trying to increase pm dose of entresto to a full tablet and then morning dose in a few weeks, optimizing meds during admission. NYHA class IIb, ACC/AHA C EF 31%, LVIDD: Lab Results Component Value Date BNP 145 (H) 04/09/2024 BNP 1,159 11/05/2023 Diuresis: PO lasix 40mg PRN (gave him 1 dose today) Beta blockade: Toprol XL 50mgAM/ 25mg PM ACEi / ARB / ARNI: 11/26 Entresto 49/51BID MRA: eplerenone 25 mg SGLT2i: none, due to nausea with jardiance and farxiga too expensive (100/month) Vasodilator: Inotrope: ICD / GENERAL SCRAP WORKER: GENERAL SCRAP WORKER-D Research Opportunities: Cardiac diet with 2 gram Na, 2L fluid restriction Weigh daily Strict I/O Plan: Paroxysmal A-fib s/p ablations 2016 Afib ablation c/b perforation, Cryo + CTI 06/2017, Repeat CTI ablation 12/2020. On admit SR with frequent PVCs - Hold Coumadin, received vitamin K 5mg for urgent LHC. Resume warfarin as able - continue Toprol XL - At home takes Coumadin 5mg on ,,/ 7.5mg on other days [id number] Score for Atrial Fibrillation Stroke Risk Age in Years: <65 Sex: Male CHF History: Yes Hypertension History: Yes Stroke/TIA/Thromboembolism History: No Vascular Disease History: No Diabetes History: No [id number] Score: 2 Lab Results Component Value Date INR 2.2 (H) 04/09/2024 INR 2.2 (H) 01/19/2021 INR 2.0 (H) 01/18/2021 Hyperlipidemia -Crestor 10mg daily Lab Results Component Value Date LDLCALC 92 04/09/2024 Hypertension -Meds as above BP Readings from Last 3 Encounters: 04/09/24 130/78 04/09/24 132/82 01/09/24 133/78 CKD Stage II (I=GFR>90, II=60-89, III=30-59, IV=15-29, V<15) - Cr baseline 1.1, Cr stable on admission Lab Results Component Value Date CREATSERUM 1.18 04/09/2024 CREATSERUM 1.10 11/05/2023 CREATSERUM 1.15 09/19/2022 Lab Results Component Value Date GFR 72 04/09/2024 GFR >60 11/05/2023 GFR >60 06/01/2022 Estimated Creatinine Clearance: 93 mL/min (by C-G formula based on SCr of 1.18 mg/dL). Electrolyte Abnormalities - Maintain K>4, Mg>2 Replete prn - Na SODIUM (NA), MANUAL ENTER Date Value Ref Range Status 11/05/2023 140 Final 09/19/2022 137 Final Sodium Date Value Ref Range Status 04/09/2024 138 135 - 145 mmol/L Final - K+ Lab Results Component Value Date POTASSIUM 3.9 04/09/2024 POTASSIUM 3.8 04/09/2024 POTASSIUM 3.9 11/05/2023 - Cl Lab Results Component Value Date CHLORIDE 104 04/09/2024 CHLORIDE 104 11/05/2023 CHLORIDE 101 09/19/2022 - Mg Lab Results Component Value Date MAGNESIUM 1.7 04/09/2024 MAGNESIUM 1.8 04/09/2024 MAGNESIUM 2.0 05/23/2023 Non-Hodgkins lymphoma 2006, s/p anthracycline BRANNON on CPAP - Ordered CPAP Anemia of chronic diseases secondary to HF - Iron studies pending Lab Results Component Value Date HGB 13.4 04/09/2024 HGB 13.1 (L) 11/07/2022 HGB 12.8 (L) 01/19/2021 Pre- Diabetes Mellitus, Type 2 Lab Results Component Value Date HGBA1C 5.7 (H) 04/09/2024 Class I Obesity (Body mass index is 34.85 kg/m .; Class I= 30-34.9, Class II= 35-39.9, Class III= > 40; <19, consider cardiac cachexia) Patient given education regarding Lifestyle Modification Secondary to Excess Caloric intake and decreased Caloric Expenditure Thyroid Evaluation Lab Results Component Value Date TSH 1.311 04/09/2024 Activity: Cardiac rehab and As Tolerated Complexity. Obesity Body mass index is 34.85 kg/m . - Follow with PCP for dietary and lifestyle modifications. Code Status: Full Code Access: Patient Lines/Drains/Airways Status Active Lines, Drains, Airways, & Wound Overview Name Placement date Placement time Site Days Peripheral IV Line - Single Lumen forearm, anterior, left 20 gauge;1 11/28 in length -- -- -- -- Diet: DIET NPO with meds DVT Prophylaxis: SCD Dispo: Home Discussed with team on rounds. This plan will be discussed with Dr. Emmy Moura MD, the attending production cost estimator. Andrew Adams PA-C HF2/Advanced Heart Failure Phone: [phone] [facility] 04-09-2024 History and physical note Heart Failure 2/Advanced Heart Failure HISTORY AND PHYSICAL IDENTIFYING INFORMATION PATIENT: Tania Venegas ADMIT DATE: 04/09/2024 TIME OF EVALUATION: 04/10/2024 12:37 AM HISTORIAN: Patient and chart review Plan of Care: - INR 2.2 plan for [facility] tomorrow (case placed) - Vitamin K+ 5mg tonight - Holding home coumadin - Consult EP - Start Amio IV bolus 150mg+ Amio drip at 1mg/min - Start leigha 200mg q8h - Continue home GDMT > 45 min spent with patient, reviewing pertinent information, and discussing plan of care with the multidisciplinary team. CHIEF COMPLAINT Recent ICD shock and LOC HISTORY OF PRESENT ILLNESS Tania Venegas is a 58 y.o. 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 Patient reported a shock delivered on 04/04 while he was ambulating at home and had LOC. Patient denied hitting his head, CP, diaphoresis, N/V, SOB. He was seen by HF in [place] on 02/26/24 with no med changes and VO2 planned. He is cardiac rehab 3 days a week for a few weeks and thinks he is improving in activity tolerance. He is taking lasix 40 mg prn which is about every 1.5 weeks. Weight ranges 260-265 lbs. He has less GRAF but reports lightheaded episodes for a few seconds that can occur anytime (with rest and not consistently with standing). However, he has been dizzy very frequently in the past few weeks, even this morning. He noticed this same feeling on Saturday, 04/04 before he was shocked. BP at home is running 100/70 mmHg. Good appetite and finishes meals. 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 No chest pain/pressure/discomfort, orthopnea, no PND, stable peripheral edema, no nausea/vomiting. He uses CPAP nightly for 4-6 hrs. HEART FAILURE HISTORY Primary HF Physician Dr Hurtado Etiology of HF NICM Home GDMT Lasix, Entresto, eplerenone, Toprol XL Dry Weight Last Admission 01/18- (CTI ablation) Last Ischemic Eval 08/2019 PCP Oliver Springer Jr. Last Echo/MRI 02/[address] [facility] GENERAL SCRAP WORKER-D PAST MEDICAL, SURGICAL, FAMILY, and SOCIAL HISTORY Past Medical History: Diagnosis Date A-fib Arrhythmia Arthritis Bradycardia Carcinoma of colon Chest pain secondary to pericarditis CHF (congestive heart failure) Diastolic dysfunction Hypertension Lymphoma Nonischemic congestive cardiomyopathy Pacemaker Restless legs Sleep apnea Systolic dysfunction Systolic heart failure s/p biventricular implantable cardioveter defibrillator placement Past Surgical History: Procedure Laterality Date ATRIAL FIBRILLATION ABLATION N/A 07/19/2017 Laterality: N/A; Surgeon: Alexander Cox MD; Location: [facility] ROSS EP FOOT SURGERY Bilateral ICD PLACEMENT Family History Problem Relation Age of Onset Other - Specify Mother Accident Colorectal Cancer Father Other - Specify Father COPD Social History Socioeconomic History Marital status: Tobacco Use Smoking status: Never Smokeless tobacco: Never Vaping Use Vaping status: Never Used Substance and Sexual Activity Alcohol use: Yes Comment: occasionally few beers-not weekly Drug use: Never Social Determinants of Health [facility]ceived from [facility] Safety & Environment MEDICATIONS Prior to Admission Medications Prescriptions Last Dose Informant Patient Reported? Taking? AMIOdarone 200 MG tablet 04/09/2024 No Yes Sig: Take 0.5 tablets by mouth daily. Entresto 49-51 MG tablet 04/09/2024 No Yes Sig: Take 1 tablet by mouth 2 times daily. Metoprolol succinate 50 MG tablet XL 04/09/2024 No Yes Simg QAM + 25mg QPM Slow Magnesium/Calcium 70-[address] 04/09/2024 Yes Yes Sig: Take 1 tablet by mouth daily. aspirin 81 MG Chew Tab chewable tablet Past Week No Yes Sig: Chew 1 tablet daily. eplerenone 25 MG tablet 04/08/2024 No Yes Sig: Take 1 tablet by mouth daily. furOSEmide 40 MG tablet Past Month Yes Yes Sig: Take 1 tablet by mouth daily as needed. rosuvastatin 10 MG tablet Past Week Yes Yes Sig: Take 1 tablet by mouth daily. warfarin 5 MG tablet 04/08/2024 Yes Yes Sig: Take 1 tablet by mouth every evening at 6 PM. INR managed at [facility] Facility-Administered Medications: None I have personally reviewed the medication list, verified it, and updated it via the Medication Reconciliation Navigator: [ X ]Verbally with the patient []With the patient's personal medication list []Verbally with the patient's family member []Verbally with the facility's MAR []With the patient's Pharmacy ALLERGIES: He is allergic to seasonal [*seasonal]. REVIEW OF SYSTEMS Review of Systems Review of Systems Constitutional: Negative for chills, decreased appetite, diaphoresis, fever, malaise/fatigue, weight gain and weight loss. HENT: Negative. Eyes: Negative. Cardiovascular: Positive for palpitations and syncope. Negative for chest pain, dyspnea on exertion, irregular heartbeat and leg swelling. Respiratory: Positive for shortness of breath. Negative for cough and wheezing. Endocrine: Negative. Hematologic/Lymphatic: Negative. Skin: Negative. Musculoskeletal: Negative. Gastrointestinal: Negative for bloating, abdominal pain, nausea and vomiting. Genitourinary: Negative. Neurological: Positive for dizziness and light-headedness. Psychiatric/Behavioral: Negative. PHYSICAL EXAM Temp: [97.7 F (36.5 C)-98.8 F (37.1 C)] Pulse (Heart Rate): [71-88] BP: (130-143)/(78-93) Resp Rate: [16-18] O2 Sat (%): [93 %-96 %] MEWS Score (AutoCalculated): [1] Body mass index is 34.85 kg/m . Physical Exam Constitutional: He appears chronically ill. Eyes: Conjunctivae are normal. Neck: No JVD present. Cardiovascular: Normal rate. An irregular rhythm present. Pulses: Radial pulses are 2+ on the right side and 2+ on the left side. Warm and dry Pulmonary/Chest: Breath sounds normal. He has no wheezes. He has no rales. He exhibits no tenderness. Abdominal: Soft. Bowel sounds are normal. He exhibits no distension. Musculoskeletal: General: Edema (Trace pitting edema) present. Cervical back: Normal range of motion. Neurological: He is alert and oriented to person, place, and time. Skin: Skin is warm and dry. LABS AND IMAGING All recent labs and imaging personally review: No results found for: LDH Recent Labs 04/09/24 1535 04/09/24 2214 WBC 6.96 -- HGB 13.4 -- HCT 40.5 -- PLATELET 220 -- SODIUM 138 -- POTASSIUM 3.8 3.9 CHLORIDE 104 -- CO2 23 -- BUN 16 -- CREATSERUM 1.18 -- GLUCOSE 114* -- CALCIUM 8.9 -- MAGNESIUM 1.8 1.7 PHOSPHORUS 2.8 -- Ptt/Pt/Inr: --/24.2/2.2 (04/09 1535) Recent Labs 04/09/24 1535 BNP 145* No results found for: HSTROP Imaging XR CHEST 1 VIEW PORTABLE Final Result IMPRESSION: Left-sided pacer was placed. No complication. Last Echo: Results for orders placed in visit on 03/11/24 ECHOCARDIOGRAM (OUTSIDE) (Final) Last Ischemic Eval: LHC around 2016 ([facility]): no CAD LHC 09/03/2019 ([facility]): mild non-obstructive CAD Last Right Heart Cath: RHC 09/03/2019 ([facility]): RA 6, PA 38/18 (29) PCWP 18, CI: 3.1 Pertinent Diagnosis VF/VT/ hx of PVCs and bradycardia s/p GENERAL SCRAP WORKER-D -Follows with EP. Unsuccessful ablation due to epicardial location, high risk to re-attempt. On anti-arrhythmic medications - amiodarone only, unable to afford ranolazine. PFTs repeated in Oct 2022 with normal DLCO. Amiodarone reduced since he was not having further afib issues and improvement in PVCs. Presenting with ICD shock on 04/04 with LOC at home. Device interrogation on 04/09 Percent paced: RA: 17%, GENERAL SCRAP WORKER: 82%. GENERAL SCRAP WORKER pacing is likely low due to ventricular ectopy over the last month. Since 06.05.2023 there have been 2 VF episodes with 1 episode on 04.04.24 @ 16:13 lasting 27 seconds in duration with average ventricular rate of 255 bpm that was treated with 1 scheme of ATP and 1 shock (no EGM available for this episode due to amount of alert worthy episodes since shock occurred) and the other episode on 24 @ 23:07 treated with 1 scheme of ATP with available EGM showing VT in the VF zone of 204 bpm lasting 10 seconds in duration successfully converted to sinus with BiVP. There were additionally 6 aborted shocks, again no EGM's available due to amount of notifications. There have been 58 VT detections (of note, these are all monitor as patient only has VF zone programmed >200 bpm), with all available EGM's showing VT lasting 9 seconds to 1 minute 30 seconds with average ventricular rates of 164 bpm - 190 bpm. There also have been 32 NSVT detections with available EGM's showing NSVT lasting 6-10 seconds in duration with average ventricular rates of 167-202 bpm. It is noted that most of these episodes happened in clusters on March 29, and April 04-today. Additionally there have been 519 atrial mode switches with available EGM's showing AF with BiVP lasting 28 seconds - 6 hours in duration. Total AT/AF burden is <1%. - Consult EP - Start Amio IV bolus 150mg+ Amio drip at 1mg/min - Start leigha 200mg q8h - if ongoing sustained vt after these measures, okay to hold leigha and start lido 1mg/min after 100mg bolus [place] Coronary Artery Disease [facility] 05/10/2016: LAD 30-40% ostial stenosis, 30% mid vessel stenosis. Circumflex shows minimal plaque disease. RCA shows mild plaque disease. [facility] 09/03/2019 ([facility]): Mild coronary artery disease. 30% ostial and 30% mid LAD stenosis. 20% stenosis in the proximal segment of the PLV branch of the RCA. Minimal disease in the circumflex vessel Beta Ashley: Toprol XL 50mgAM/ 25mg PM Statin: Crestor 10mg daily Anti Platelet:ASA 81mg Anti Anginal: Chronic systolic heart failure/ NICM Recent Echo 02/2024 showed LVEF 31%. 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 On exam no JVP, noticed bilateral trace pitting edema. BNP 145. At clinic today 04/10 Dr. Hurtado discussed trying to increase pm dose of entresto to a full tablet and then morning dose in a few weeks, optimizing meds during admission. NYHA class IIb, ACC/AHA C EF 31%, LVIDD: Lab Results Component Value Date BNP 145 (H) 04/09/2024 BNP 1,159 11/05/2023 Diuresis: PO lasix 40mg PRN (gave him 1 dose today) Beta blockade: Toprol XL 50mgAM/ 25mg PM ACEi / ARB / ARNI: / Entresto 49/51BID MRA: eplerenone 25 mg SGLT2i: none, due to nausea with jardiance and farxiga too expensive (100/month) Vasodilator: Inotrope: ICD / GENERAL SCRAP WORKER: GENERAL SCRAP WORKER-D Research Opportunities: Cardiac diet with 2 gram Na, 2L fluid restriction Weigh daily Strict I/O Plan: Paroxysmal A-fib s/p ablations 2016 Afib ablation c/b perforation, Cryo + CTI 06/2017, Repeat CTI ablation 12/2020. On admit SR with frequent PVCs - Hold Coumadin, received vitamin K 5mg for urgent LHC. Resume warfarin as able - continue Toprol XL - At home takes Coumadin 5mg on M,W,F/ 7.5mg on other days [id number] Score for Atrial Fibrillation Stroke Risk Age in Years: <65 Sex: Male CHF History: Yes Hypertension History: Yes Stroke/TIA/Thromboembolism History: No Vascular Disease History: No Diabetes History: No [id number] Score: 2 Lab Results Component Value Date INR 2.2 (H) 04/09/2024 INR 2.2 (H) 01/19/2021 INR 2.0 (H) 01/18/2021 Hyperlipidemia -Crestor 10mg daily Lab Results Component Value Date LDLCALC 92 04/09/2024 Hypertension -Meds as above BP Readings from Last 3 Encounters: 04/09/24 130/78 04/09/24 132/82 01/09/24 133/78 CKD Stage II (I=GFR>90, II=60-89, III=30-59, IV=15-29, V<15) - Cr baseline 1.1, Cr stable on admission Lab Results Component Value Date CREATSERUM 1.18 04/09/2024 CREATSERUM 1.10 11/05/2023 CREATSERUM 1.15 09/19/2022 Lab Results Component Value Date GFR 72 04/09/2024 GFR >60 11/05/2023 GFR >60 06/01/2022 Estimated Creatinine Clearance: 93 mL/min (by C-G formula based on SCr of 1.18 mg/dL). Electrolyte Abnormalities - Maintain K>4, Mg>2 Replete prn - Na SODIUM (NA), MANUAL ENTER Date Value Ref Range Status 11/05/2023 140 Final 09/19/2022 137 Final Sodium Date Value Ref Range Status 04/09/2024 138 135 - 145 mmol/L Final - K+ Lab Results Component Value Date POTASSIUM 3.9 04/09/2024 POTASSIUM 3.8 04/09/2024 POTASSIUM 3.9 11/05/2023 - Cl Lab Results Component Value Date CHLORIDE 104 04/09/2024 CHLORIDE 104 11/05/2023 CHLORIDE 101 09/19/2022 - Mg Lab Results Component Value Date MAGNESIUM 1.7 04/09/2024 MAGNESIUM 1.8 04/09/2024 MAGNESIUM 2.0 05/23/2023 Non-Hodgkins lymphoma 2006, s/p anthracycline BRANNON on CPAP - Ordered CPAP Anemia of chronic diseases secondary to HF - Iron studies pending Lab Results Component Value Date HGB 13.4 04/09/2024 HGB 13.1 (L) 11/07/2022 HGB 12.8 (L) 01/19/2021 Pre- Diabetes Mellitus, Type 2 Lab Results Component Value Date HGBA1C 5.7 (H) 04/09/2024 Class I Obesity (Body mass index is 34.85 kg/m .; Class I= 30-34.9, Class II= 35-39.9, Class III= > 40; <19, consider cardiac cachexia) Patient given education regarding Lifestyle Modification Secondary to Excess Caloric intake and decreased Caloric Expenditure Thyroid Evaluation Lab Results Component Value Date TSH 1.311 04/09/2024 Activity: Cardiac rehab and As Tolerated Complexity. Obesity Body mass index is 34.85 kg/m . - Follow with PCP for dietary and lifestyle modifications. Code Status: Full Code Access: Patient Lines/Drains/Airways Status Active Lines, Drains, Airways, & Wound Overview Name Placement date Placement time Site Days Peripheral IV Line - Single Lumen forearm, anterior, left 20 gauge;1 11/28 in length -- -- -- -- Diet: DIET NPO with meds DVT Prophylaxis: SCD Dispo: Home Discussed with team on rounds. This plan will be discussed with Dr. Emmy Moura MD, the attending production cost estimator. Andrew Adams PA-C HF2/Advanced Heart Failure Phone: [phone] documented in this encounter [facility] 04-09-2024 History of Present illness Narrative Tania Venegas is a 58 y.o. 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 PCP: Dr. Oliver Springer; Cardiology: Dr. Mojgan Zelaya ([facility]); [place] () HPI: Tania Venegas is a 58 y.o. male with a hx as outlined below. He follows with anti-arrhythmic clinic and had PFTs done which showed improvement in DLCO to normal range. He follows with Dr. Cox in December and his amiodarone was decreased to 100mg daily for possible intolerance (fatigue) and he ordered a MCT. Today he reports a shock for VT on 04/04 and he had LOC. He was seen by HF in [place] on 02/26/24 with no med changes and VO2 planned. He is cardiac rehab 3 days a week for a few weeks and thinks he is improving in activity tolerance. He is taking lasix 40 mg prn which is about every 1.5 weeks. Weight ranges 260-265 lbs. He has less GRAF but reports lightheaded episodes for a few seconds that can occur anytime (with rest and not consistently with standing). However, he has been dizzy very frequently in the past few weeks, even this morning. He noticed this same feeling on Saturday, 04/04 before he was shocked. BP at home is running 100/70 mmHg. Good appetite and finishes meals. 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 No chest pain/pressure/discomfort, orthopnea, no PND, stable peripheral edema, no nausea/vomiting. He uses CPAP nightly for 4-6 hrs. PMH: 1. Chronic systolic heart failure, anthracycline toxicity, diagnosed 2015 with PVCs and bradycardia -GENERAL SCRAP WORKER-D: reduced BiV pacing due to PVCs -VO2 01/17: peak VO2 20 (77%), RER 1.2, VE/VCO2 30, 8 mets. -Echo 02/2024: LVEF 31% -Echo 11/2021: LVEF 25-30%, Grade 2 diastolic dysfunction, YNES, mild MR/TR, RVSP 40 mmHg -Echo 06/2019: LVEF 30-35% -C around 2016 ([facility]): no CAD -LHC 09/03/2019 ([facility]): mild non-obstructive CAD -[facility] 09/03/2019 ([facility]): RA 6, PA 38/18 (29) PCWP [...] 1 tablet by mouth daily as needed. Metoprolol succinate 50 MG tablet XL 50mg QAM + 25mg QPM rosuvastatin 10 MG tablet Take 1 tablet by mouth daily. Slow Magnesium/Calcium 70-[address] Take 1 tablet by mouth daily. warfarin 5 MG tablet Take 1 tablet by mouth every evening at 6 PM. INR managed at [facility] Review of Systems A complete review of systems was performed and positive for symptoms mentioned in the history of present illness. The remainder of system review was negative. Physical Exam BP 132/82 (BP Location: Right arm, BP Position: Sitting) Pulse 77 Temp 98.1 F (36.7 C) (Oral) Resp 18 Ht 1.829 m (6') Wt 120.7 kg (266 lb) SpO2 96% BMI 36.08 kg/m Smoking Status Never Body mass index is 36.08 kg/m . General/Constitutional: Well developed, well nourished [...] 12/10/2018 Lab Results Component Value Date BNP 1,159 11/05/2023 No results found for: CHOLESTEROL , TRIG , HDL Lab Results Component Value Date SODIUM 140 11/05/2023 POTASSIUM 3.9 11/05/2023 CHLORIDE 104 11/05/2023 CO2 31.1 11/05/2023 BUN 17.0 11/05/2023 CREATSERUM 1.10 11/05/2023 Guideline Directed Medical HF Therapy: ACEI / ARB / ARNI: entresto 1/2 tab 49-51 mg BID Beta ashley: toprol XL 50/25 AM/PM Aldosterone antagonist: eplerenone 25mg daily SGLT-2i: none - nausea with jardiance and farxiga expensive Ivabradine: no GENERAL SCRAP WORKER: yes ICD: yes CardioMEMS: no Other: amiodarone [...] and clinical class A (warm and euvolemic). VO2 done 01/17 with pVO2 20 (77% predicted), VE/VCO2 30 - improvement from the one at [facility] in April 2022. - GDMT: continue entresto 1/2 49-51 mg bid, toprol XL 50/25 mg bid, and eplerenone 25 mg qd, lasix 40 mg prn. Not on SGLT2i due to nausea with jardiance and farxiga too expensive (100/month). Discussed trying to increase pm dose of entresto to a full tablet and then morning dose in a few weeks. However, we are admitting him to HF2 for frequent NSVT/symptoms and will address optimizing meds during admission. - Advance therapies - tolerating medications currently with good VO2 in 01/17. Possibly repeat later this year after addressing VT. 2.) PVC/NSVT: Follows with EP. Unsuccessful ablation due to epicardial location, high risk to re-attempt. On anti-arrhythmic medications - amiodarone only, unable to afford ranolazine. PFTs repeated in Oct 2022 with normal DLCO. -Amiodarone reduced since he was not having further afib issues and improvement in PVCs. However, we interrogated his device today due to ICD shock on 04/04 and dizziness. Having very frequent NSVT daily. Discussed with Dr. Cox, and we are admitting for [facility] tomorrow pending INR (last in 2018) and will likely try mexiletine along with increasing amiodarone. - Admitting to HF2. 3.) Non-obstructive CAD: Planning ischemic evaluation with admission as above. - On rosuvastatin 10mg daily - due to hx of muscle cramps with lipitor 4.) Paroxysmal afib s/p ablation. On toprol XL and coumadin. 5.) BRANNON: using CPAP regularly and notices improvement in daytime fatigue when using it all night. Admitting to HF2 for ischemic evaluation and EP recs on NSVT, ICD shock on 04/04. Thank you for the opportunity to participate in the care of your patient. We will continue to follow him in our Advanced Heart Failure Clinic along with you with plans to see him back after admission. Ajit Hurtado M.D. Professor of Clinical Internal Medicine Advanced Heart Failure and Transplant Program [facility] [email or web address] ph [phone] fax [phone] Patient Education Patient education regarding the following topic(s) was provided on 04/09/2024: admission; overall plan of care . Those in attendance for the education included: patient, spouse, and daughter. Barriers in providing the education included: none. The following methods were used in providing the education: explanation and handout. [facility] handouts given included: After visit summary. The response of those in attendance was: states/identifies education topic. The following Clinical Intervention(s) occurred during today s visit: Complex discharge planning/care coordination/admission coordination, including calling report completed and Extensive teaching provided to patient and or support team regarding admission, overall plan of care . documented in this encounter [facility] 04-09-2024 Instructions Delmy Frey RN - 04/09/2024 11:30 AM EDT Recommendations from Dr Hurtado at your office appt today at [facility]: INCREASE Entresto to full tablet in the evening. After one month, if tolerating evening dose, increase morning dose to full tablet. DEVICE check today. (Admitted after device check) Continue current medications. Follow up in 8-9 months. Your after visit summary (AVS) is viewable in [facility] My [facility]. Call RN if you have cardiac questions/concerns M-F 8 to 4:30 ; office # [phone], option 6, then option 2. Guidelines for home management: 1. Continue to monitor weight first thing each morning. 2. Report to the CHF CLINIC ([phone]) any significant weight change. Remember that weight [...] to have labs/tests run outside of the [facility] and you do not hear from us 1-2 days after they are performed, you must call us to ensure we received the results. Office fax # [phone]. No news does not necessarily mean that your tests are normal, it could mean we did not get the results. For questions/updates: please provide your name with spelling, date of and question or update All calls are prioritized and responses researched, if possible, prior to calls being returned. Call Scheduling for any appointment/procedure verification or changes [phone], option 7 or [facility] Heart Schedulers at [phone], option 1. documented in this encounter [facility] 03-13-2024 Note [place] [facility] - [facility] Clinic Subjective Tania Venegas is a 58 y.o. year old male patient being seen for Follow-up (Follow up per Nish- vinod echo completed ) Patient Active Problem List Diagnosis Atrial fibrillation [...] fibrillation (CMS/HCC) Hypomagnesemia Cardiac resynchronization therapy defibrillator (GENERAL SCRAP WORKER-D) in place Family History Problem Relation Name Age of Onset COPD Father Other (pacemaker) Father Social History Tobacco Use Smoking status: Never Smokeless tobacco: Never Substance Use Topics Alcohol use: Yes Comment: moderate HPI Tania is seen in follow-up. He is a 58-year-old man with history of dilated cardiomyopathy and cardiac catheterization in 2016 showing nonobstructive coronary artery disease. He has chronic systolic heart failure status post GENERAL SCRAP WORKER-D placement in the past. He has history of atrial fibrillation status post ablation in 2017 complicated with pericardial effusion and cardiac tamponade status post emergency drainage. He had another AFL ablation in [facility] at [facility]. He also had PVC ablation in November 2018 at [facility] after failed medical therapy. The PVC ablation at that time was not successful. He then underwent another cardiac catheterization in August 2019 for investigation of progression of coronary artery disease. This showed nonobstructive coronary artery disease with appearance similar to prior cardiac catheterization in 2016. He follows with [facility] Dr. Cox from electrophysiology team. Today he reports that he has been about the same. He has shortness of breath on exertion NYHA class II symptoms. He has irregular heartbeats and palpitations occasionally. His main issue is dizziness and lightheadedness that can happen either at rest or with standing. His blood pressure at home is ranging between 90 and 110 systolic. He is taking medications as prescribed. He is compliant to medical therapy. He is taking warfarin with no bleeding issues. Review of Systems Constitutional: Positive for malaise/fatigue. Negative for chills, decreased appetite, fever and weight gain. Cardiovascular: Positive for dyspnea on exertion and irregular heartbeat. Negative for chest pain, leg swelling, near-syncope, orthopnea, palpitations, paroxysmal nocturnal dyspnea and syncope. Respiratory: Positive for shortness of breath. Hematologic/Lymphatic: Negative for bleeding problem. Does not bruise/bleed easily. Neurological: Positive for dizziness. Objective Visit Vitals BP 110/80 (BP Location: Left arm, Patient Position: Sitting, BP Cuff Size: Adult) Pulse 80 Resp 12 Ht 1.854 m (6' 1 ) Wt 122 kg (270 lb) SpO2 96% BMI 35.62 kg/m??? Smoking Status Never BSA 2.51 m??? Physical Exam Constitutional: Appearance: He is well-developed. He is obese. He is not ill-appearing. HENT: Head: Normocephalic and atraumatic. Nose: Nose normal. Eyes: General: No scleral icterus. Pupils: Pupils are equal, round, and reactive to light. Neck: Thyroid: No thyromegaly. Vascular: No JVD. Cardiovascular: Rate and Rhythm: Normal rate. Rhythm irregular. Pulses: Radial pulses are 2+ on the right side and 2+ on the left side. Heart sounds: Normal heart sounds. No murmur heard. No friction rub. No gallop. Pulmonary: Effort: Pulmonary effort is normal. No respiratory distress. Breath sounds: Normal breath sounds. No wheezing or rales. Chest: Chest wall: No tenderness. Abdominal: General: Bowel sounds are normal. There is no distension. Palpations: Abdomen is soft. Tenderness: There is no abdominal tenderness. Musculoskeletal: General: No swelling. Cervical back: Neck supple. Skin: General: Skin is warm and dry. Neurological: General: No focal deficit present. Mental Status: He is alert and oriented to person, place, and time. Psychiatric: Mood and Affect: Mood normal. Behavior: Behavior is cooperative. Judgment: Judgment normal. Allergies No Known Allergies Medications Current Outpatient Medications: amiodarone (Pacerone) 200 mg [...] shortness of breath- then stop- may repeat a (more content not included)... [facility] 02-26-2024 Note Cardiovascular Medic [facility] Clinic SUBJECTIVE Chief Complaint Patient presents with Follow-up Patient is here today with increased sob and dizziness Was evaluated in the ER yesterday Tania Venegas is a 58 y.o. male here for follow-up. HPI PMHx: HFrEF (non-ischemic cardiomypathy - LVEF 20-25%), GENERAL SCRAP WORKER-D, PAF, PVC's, non-hodgkin's lymphoma s/p anthracycline chemo 2006 He went to [facility] ER yesterday for c/o dizziness. He also [...] hx of non-hodgkin's lymphoma s/p anthracycline chemo 2006 being managed today for the following issues: 1.) Non-ischemic cardiomyopathy / chronic systolic heart failure: NYHA Class IIb, ACC/AHA class C, and clinical class A (warm and euvolemic). Sxs stable. VO2 done last month with pVO2 20 (77% predicted), VE/VCO2 30 - improvement from the one at [facility] in April 2022. - GDMT: continue entresto 1/ 49-51 mg bid, toprol, and eplerenone, lasix [...] 3.) Non-obstructive CAD: Stable. Managed by local placement officer. On rosuvastatin 10mg daily - due to [...] fibrillation (CMS/HCC) Hypomagnesemia Cardiac resynchronization therapy defibrillator (GENERAL SCRAP WORKER-D) in place Past Medical History: Diagnosis Date [...] 11 metoprolol s (more content not included)... [facility] 12-27-2023 Telephone encounter Note Received recent pacemaker check. Routing to Lana Brown and MIM. [facility] 12-27-2023 Miscellaneous Notes Received recent pacemaker check. Routing to Lana Brown and MIM. Received a call from Dr. Mojgan Zelaya office letting me know that pt has not been seen at the office since 2020 and that he is monitored by [facility] on his home monitor. Called and spoke with Carmela and she will work on getting the recent check faxed to us shortly. ----- Message from Dax Estrada sent at 12/27/2023 8:37 AM EST ----- Called and LM with device clinic asking them to fax the recent pacemaker check. Left call back and fax numbers. [place] ----- Message ----- From: Annemarie Anne Sent: 12/26/2023 3:54 PM EST To: Lillie Gracia Ep Oa Pool DR. Cox Apt 01/09/24 Patient is inactive with our clinic Following Provider: Dr. Mojgan Zelaya [phone] documented in this encounter [facility] 12-27-2023 Telephone encounter Note Received a call from Dr. Mojgan Zelaya office letting me know that pt has not been seen at the office since 2020 and that he is monitored by [facility] medical [facility] on his home monitor. Called and spoke with Carmela and she will work on getting the recent check faxed to us shortly. [facility] 12-27-2023 Telephone encounter Note ----- Message from Dax Estrada sent at 12/27/2023 8:37 AM EST ----- Called and LM with device clinic asking them to fax the recent pacemaker check. Left call back and fax numbers. [place] ----- Message ----- From: Annemarie Anne Sent: 12/26/2023 3:54 PM EST To: [facility] Ep [place]a Pool DR. Cox Apt 01/09/24 Patient is inactive with our clinic Following Provider: Dr. Mojgan Zelaya [phone] [facility] 11-06-2023 Telephone encounter Note Images from the original note were not included. MD Maria Elena Daniel, RN; P Lillie [facility] Heart Failure Nurse Pool Caller: Unspecified (Today, 10:59 AM) Thanks, labs look good with med changes last visit. LVM with the above message and stated he could call back if he had any questions. [facility] 11-06-2023 Miscellaneous Notes Images from the original note were not included. AjitMD Maria Elena Lemon RN; Topher Banuelos [facility] Heart Failure Nurse Pool Caller: Unspecified (Today, 10:59 AM) Thanks, labs look good with med changes last visit. LVM with the above message and stated he could call back if he had any questions. Received fax from [facility] with outside lab orders. Manually entered. Forwarded in outlook to [facility]. Routed to Dr. Hurtado for review. documented in this encounter [facility] 11-06-2023 Telephone encounter Note Received fax from [facility] with outside lab orders. Manually entered. Forwarded in outlook to [facility]. Routed to Dr. Hurtado for review. [facility] 09-26-2023 History of Present illness Narrative Tania Venegas is a 58 y.o. 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 PCP: Dr. Oliver Springer; Cardiology: Dr. Mojgan Zelaya ([facility]); [place] () HPI: Tania Venegas [...] toxicity, diagnosed 2015 with PVCs and bradycardia -GENERAL SCRAP WORKER-D: reduced BiV pacing due to PVCs -VO2 01/17: peak VO2 20 (77%), RER 1.2, VE/VCO2 30, 8 mets. -Echo 11/2021: LVEF 25-30%, Grade 2 diastolic dysfunction, YNES, mild MR/TR, RVSP 40 mmHg -Echo 06/2019: LVEF 30-35% -LHC around 2015 ([facility]): no CAD -LHC 09/03/2019 ([facility]): mild non-obstructive CAD -RHC 09/03/2019 ([facility]): RA 6, PA 38/18 (29) PCWP [...] evening at 6 PM. INR managed at [facility] Review of Systems A complete review [...] with jardiance and farxiga expensive Ivabradine: no GENERAL SCRAP WORKER: yes ICD: yes CardioMEMS: no Other: amiodarone [...] 30 - improvement from the one at [facility] in April 2022. - GDMT: continue entresto [...] 3.) Non-obstructive CAD: Stable. Managed by local placement officer. On rosuvastatin 10mg daily - due to [...] Medicine Advanced Heart Failure and Transplant Program [facility] [email or web address] ph [phone] fax [phone] Patient Education Patient education regarding the following topic(s) was provided on 09/26/2023: Recommendations from Dr Hurtado at your office appt today at [facility]: Take lasix (furosemide) 40mg daily Labs next week Continue other current medications Return appt Dr Hurtado in 6 months Your after visit summary (AVS) is viewable in [facility] My [facility]. Call RN if you have cardiac questions/concerns M-F 8 to 4:30 ; office # [phone], option 6, then option 2. Guidelines for home management: 1. Continue to monitor weight first thing each morning. 2. Report to the CHF CLINIC ([phone]) any significant weight change. Remember that weight [...] to have labs/tests run outside of the [facility] and you do not hear from us 1-2 days after they are performed, you must call us to ensure we received the results. Office fax # [phone]. No news does not necessarily mean that your tests are normal, it could mean we did not get the results. For questions/updates: please provide your name with spelling, date of and question or update All calls are prioritized and responses researched, if possible, prior to calls being returned. Call Scheduling for any appointment/procedure verification or changes [phone], option 7 or [facility] Heart Schedulers at [phone], option 1. Those in attendance for the education included: patient and spouse. Barriers in providing the education included: none. The following methods were used in providing the education: explanation and handout. [facility] handouts given included: After visit summary and lab orders. The response of those in attendance was: states/identifies education topic. The following Clinical Intervention(s) occurred during today s visit: Orthostatic or Coarctation vital signs completed and Extensive teaching provided to patient and or support team regarding medication, labs documented in this encounter [facility] 09-26-2023 Instructions Jovita Cerda RN - 09/26/2023 11:30 AM EDT Recommendations from Dr Hurtado at your office appt today at [facility]: Take lasix (furosemide) 40mg daily Labs next week Continue other current medications Return appt Dr Hurtado in 6 months Your after visit summary (AVS) is viewable in [facility] My [facility]. Call RN if you have cardiac questions/concerns M-F 8 to 4:30 ; office # [phone], option 6, then option 2. Guidelines for home management: 1. Continue to monitor weight first thing each morning. 2. Report to the CHF CLINIC ([phone]) any significant weight change. Remember that weight [...] to have labs/tests run outside of the [facility] and you do not hear from us 1-2 days after they are performed, you must call us to ensure we received the results. Office fax # [phone]. No news does not necessarily mean that your tests are normal, it could mean we did not get the results. For questions/updates: please provide your name with spelling, date of and question or update All calls are prioritized and responses researched, if possible, prior to calls being returned. Call Scheduling for any appointment/procedure verification or changes [phone], option 7 or [facility] Heart Schedulers at [phone], option 1. documented in this encounter [facility] 09-04-2023 Note EKG today Bi-V paced Continue amiodarone 100 mg daily and warfarin anticoagulation F/U with Dr Harrell- [facility] 09-04-2023 Note [facility] II-III c- curre ntly appears fluid [...] please maintain K+>4 and Mg > 2 [facility] 09-04-2023 Note [facility] CARDIOLOGY PROGR ESS [...] Judgment normal. Labs: (more content not included)... [facility] 09-04-2023 Note Patient here for 9 [...] All other systems reviewed and are negative. [facility] 01-31-2023 History of Present illness Narrative Tania Venegas is a 57 y.o. 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 PCP: Dr. Oliver Springer; Cardiology: Dr. Mojgan Zelaya ([facility]); [place] () HPI: Tania Venegas [...] toxicity, diagnosed 2015 with PVCs and bradycardia -GENERAL SCRAP WORKER-D: reduced BiV pacing due to PVCs -Echo 11/2021: LVEF 25-30%, Grade 2 diastolic dysfunction, YNES, mild MR/TR, RVSP 40 mmHg -Echo 06/2019: LVEF 30-35% -LHC around 2016 ([facility]): no CAD -LHC 09/03/2019 ([facility]): mild non-obstructive CAD -RHC 09/03/2019 ([facility]): RA 6, PA 38/18 (29) PCWP [...] with jardiance and farxiga expensive Ivabradine: no GENERAL SCRAP WORKER: yes ICD: yes CardioMEMS: no Other: amiodarone [...] 30 - improvement from the one at [facility] in April 2022. - GDMT: continue entresto, [...] 3.) Non-obstructive CAD: Stable. Managed by local placement officer. On crestor 10mg daily - due to [...] were used in providing the education: explanation. [facility] handouts given included: After visit summary. The response of those in attendance was: states/identifies education topic. The following Clinical Intervention(s) occurred during today s visit: Orthostatic or Coarctation vital signs completed and Extensive teaching provided to patient and or support team regarding plan of care Attending Physician Note (GE) I independently evaluated the patient with the analog device designer, and we developed the plan for management together. I have reviewed the above note and edited the essential parts of the note, which reflects my own impression and plan. I agree with the chief complaint, history, exam, and plan as detailed by the analog device designer. Based on the history and exam, I [...] Medicine Advanced Heart Failure and Transplant Program [facility] [email or web address] ph [phone] fax [phone] documented in this encounter [facility] 01-31-2023 Instructions Amina Guadalupe RN - 01/31/2023 8:30 AM EST Recommendations from Dr Hurtado today: No changes to medications today Please follow up with Dr. Hurtado in 6 months After visit summary (AVS) is viewable in [facility] My Chart. Send My Chart message for non-urgent inquiry or Call RN if you have cardiac questions/concerns M-F 8 to 4:30 ; office # [phone], option 6, then option 2. Guidelines for home management: 1. Continue to monitor weight first thing each morning. 2. Report to the CHF CLINIC ([phone]) any significant weight change. Remember that weight [...] to have labs/tests run outside of the [facility] and you do not hear from us 1-2 days after they are performed, you must call us to ensure we received the results. Office fax # [phone]. No news does not necessarily mean that your tests are normal, it could mean we did not get the results. For questions/updates: please provide your name with spelling, date of and question or update All calls are prioritized and responses researched, if possible, prior to calls being returned. Call Scheduling for any appointment/procedure verification or changes [phone], option 7 or [facility] Heart Schedulers at [phone], option 1. documented in this encounter [facility] 08-30-2022 History of Present illness Narrative Tania Venegas is a 56 y.o. 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 PCP: Dr. Oliver Springer; Cardiology: Dr. Mojgan Zelaya ([facility]); [place] () HPI: Tania Venegas [...] toxicity, diagnosed 2015 with PVCs and bradycardia -GENERAL SCRAP WORKER-D: reduced BiV pacing due to PVCs -Echo 11/2021: LVEF 25-30%, Grade 2 diastolic dysfunction, YNES, mild MR/TR, RVSP 40 mmHg -Echo 06/2019: LVEF 30-35% -LHC around 2016 ([facility]): no CAD -LHC 09/03/2019 ([facility]): mild non-obstructive CAD -RHC 09/03/2019 ([facility]): RA 6, PA 38/18 (29) PCWP [...] with jardiance and farxiga expensive Ivabradine: no GENERAL SCRAP WORKER: yes ICD: yes CardioMEMS: no Other: amiodarone [...] 3.) Non-obstructive CAD: Stable. Managed by local placement officer. On crestor 10mg daily - due to [...] I independently evaluated the patient with the analog device designer, and we developed the plan for management together. I have reviewed the above note and edited the essential parts of the note, which reflects my own impression and plan. I agree with the chief complaint, history, exam, and plan as detailed by the analog device designer. Based on the history and exam, I [...] Medicine Advanced Heart Failure and Transplant Program [facility] [email or web address] [phone] fax [phone] documented in this encounter [facility] 08-30-2022 Instructions Delmy Frey RN - 08/30/2022 [...] M-F 8 to 4:30 ; office # [phone], option 6, then option 2. Guidelines for home management: 1. Continue to monitor weight first thing each morning. 2. Report to the CHF CLINIC ([phone]) any significant weight change. Remember that weight [...] to have labs/tests run outside of the [facility] and you do not hear from us 1-2 days after they are performed, you must call us to ensure we received the results. Office fax # [phone]. No news does not necessarily mean that your tests are normal, it could mean we did not get the results. For questions/updates: please provide your name with spelling, date of and question or update All calls are prioritized and responses researched, if possible, prior to calls being returned. Call Scheduling for any appointment/procedure verification or changes [phone], option 7 or [facility] Heart Schedulers at [phone], option 1. documented in this encounter [facility] 06-05-2022 Telephone encounter Note From: Ajit Hurtado MD Sent: 06/04/2022 5:04 PM EDT To: [facility] Heart Failure Nurse Pool Ok, labs are fine. Thanks. MyChart message sent to patient. [facility] 06-05-2022 Miscellaneous Notes From: Ajit Hurtado MD Sent: 06/04/2022 5:04 PM EDT To: [facility] Heart Failure Nurse [place] Ok, labs are fine. Thanks. MyChart message sent to patient. Outside lab results received, manually entered. documented in this encounter [facility] 06-01-2022 Telephone encounter Note Outside lab results received, manually entered. [facility] 06-01-2022 Miscellaneous Notes Outside lab results received, manually entered. documented in this encounter [facility] Evaluation note Diagnosis Left hip pain Pain in joint, pelvic region and thigh documented in this encounter [facility] Phone: evaluation note* Diagnosis Chronic systolic heart failure- Primary Paroxysmal atrial fibrillation Atrial fibrillation PVC (premature ventricular contraction) Other premature beats Coronary artery disease involving [place] coronary artery of [place] heart without angina pectoris [facility] Diagnosis Encounter for long-term (current) use of high-risk medication Encounter for long-term (current) use of other medications PVC's (premature ventricular contractions) Other premature beats Encounter for long-term (current) use of medications Encounter for long-term (current) use of other medications [facility] Diagnosis Chronic systolic heart failure [facility] Diagnosis Chronic systolic heart failure- Primary PVC (premature ventricular contraction) Other premature beats Paroxysmal atrial fibrillation Atrial fibrillation Coronary artery disease involving [place] coronary artery of [place] heart without angina pectoris [facility] Diagnosis Chronic systolic heart failure- Primary PVC (premature ventricular contraction) Other premature beats Paroxysmal atrial fibrillation Atrial fibrillation Coronary artery disease involving [place] coronary artery of [place] heart without angina pectoris [facility] Diagnosis PVC's (premature ventricular contractions)- Primary Other premature beats documented in this [facility] Diagnosis NSVT (nonsustained ventricular tachycardia)- Primary Paroxysmal ventricular tachycardia Chronic systolic heart failure Paroxysmal atrial fibrillation Atrial fibrillation PVC (premature ventricular contraction) Other premature beats documented [facility] Diagnosis Ventricular tachycardia- Primary Paroxysmal ventricular tachycardia AICD discharge Observation for other specified suspected conditions Acute on chronic systolic heart failure ICD (implantable cardioverter-defibrillator) discharge Observation for other specified suspected conditions PVC's (premature ventricular contractions) Other premature beats Paroxysmal atrial fibrillation Atrial fibrillation BRANNON on CPAP Obstructive sleep apnea (adult) (pediatric) Obesity (BMI 30.0-34.9) Obesity, unspecified Essential hypertension Unspecified essential hypertension Atherosclerotic heart disease [place] coronary artery w/angina pectoris Coronary atherosclerosis of [place] coronary artery AICD discharge Observation for other specified suspected conditions [facility] Diagnosis Ventricular tachycardia- Primary Paroxysmal ventricular tachycardia V-tach Paroxysmal ventricular tachycardia documented [facility] Diagnosis Chronic systolic heart failure- Primary V-tach Paroxysmal ventricular tachycardia [facility] Diagnosis Ventricular tachycardia- Primary Paroxysmal ventricular tachycardia Ventricular tachycardia Paroxysmal ventricular tachycardia V-tach Paroxysmal ventricular tachycardia Post-operative pain Other acute postoperative pain AF (atrial fibrillation) Atrial fibrillation HLD (hyperlipidemia) Other and unspecified hyperlipidemia Essential hypertension Unspecified essential hypertension Post-operative pain Other acute postoperative pain At moderate risk for deep venous thrombosis Health education/counseling Counseling NOS BRANNON (obstructive sleep apnea) Obstructive sleep apnea (adult) (pediatric) Hyponatremia Hyposmolality and/or hyponatremia Leukocytosis Leukocytosis, unspecified [facility] Diagnosis V-tach- Primary Paroxysmal ventricular tachycardia PVC (premature ventricular contraction) Other premature beats Chronic dyspnea Breath shortness Shortness of breath [facility] Diagnosis Acute postoperative pain- Primary Other acute postoperative pain Ventricular tachycardia Paroxysmal ventricular tachycardia [facility] Diagnosis Ventricular tachycardia Paroxysmal ventricular tachycardia [facility] Diagnosis Pacemaker at end of battery life- Primary Fitting and adjustment of cardiac pacemaker Atrial fibrillation, unspecified type documented in this encounter [facility]* Diagnosis Atrial fibrillation, unspecified type documented in this encounter [facility]* Diagnosis PVC's (premature ventricular contractions)- Primary Other premature beats Ventricular tachycardia Paroxysmal ventricular tachycardia [facility] Diagnosis Paroxysmal atrial fibrillation- Primary Atrial fibrillation Atrial fibrillation PVC's (premature ventricular contractions) Other premature beats Chronic systolic heart failure- Primary documented in this encounter [facility]* Diagnosis Paroxysmal atrial fibrillation- Primary Atrial fibrillation Atrial fibrillation PVC's (premature ventricular contractions) Other premature beats Pacemaker at end of battery life Fitting and adjustment of cardiac pacemaker NSVT (nonsustained ventricular tachycardia)- Primary Paroxysmal ventricular tachycardia Nonsustained ventricular tachycardia Paroxysmal ventricular tachycardia Chronic combined systolic and diastolic heart failure ICD (implantable cardioverter-defibrillator) in place PVC (premature ventricular contraction) Other premature beats NSVT (nonsustained ventricular tachycardia) Paroxysmal ventricular tachycardia Paroxysmal atrial fibrillation Atrial fibrillation PVC's (premature ventricular contractions) Other premature beats Atrial fibrillation, unspecified type Acute on chronic systolic heart failure PVC (premature ventricular contraction) Other premature beats Pacemaker at end of battery life Fitting and adjustment of cardiac pacemaker documented in this encounter [facility] note* Diagnosis Paroxysmal atrial fibrillation- Primary Atrial fibrillation Atrial fibrillation PVC's (premature ventricular contractions) Other premature beats Pacemaker at end of battery life Fitting and adjustment of cardiac pacemaker PVC's (premature ventricular contractions) Other premature beats documented in this encounter [facility] for referral (narrative)* Unlisted Procedure Code (Routine) - New Request Specialty Diagnoses / Procedures Referred By Natalie t Referred To Contact Procedures DIRECT ADMIT REQUEST Ajit Hurtado MD [address] [place] [address] Referral ID Status Reason Start Date Expiration Date V isits Requested Visits Authorized [id number] New Request 04/09/2024 05/04/2025 1 1 [facility] Unlisted Procedure Code (Routine) - New Request Specialty Diagnoses / Procedures Referred By Natalie t Referred To Contact Diagnoses Pacemaker at end of battery life Procedures CASE REQUEST - EP PROC (EPS, ABLATION, DEVICE) Lynne Elizondo APRN-CNP [address] [place] [address] Referral ID Status Reason Start Date Expiration Date V isits Requested Visits Authorized [id number] New Request 06/12/2024 07/07/2025 1 1 * Radiology (Emergency) - New Request Specialty Diagnoses / Procedures Referred By Natalie t Referred To Contact Procedures ECG Lea Jackson APRN-CNP [address] [facility] [address] [place] [address] Referral ID Status Reason Start Date Expiration Date V isits Requested Visits Authorized [id number] New Request 06/12/2024 07/07/2025 1 1 [facility] Unlisted Procedure Code (Routine) - New Request Specialty Diagnoses / Procedures Referred By Arenac t Referred To Contact Diagnoses PVC's (premature ventricular contractions) Ventricular tachycardia Procedures CASE REQUEST - EP PROC (EPS, ABLATION, DEVICE) Alexander Cox MD [address] [place] [address] Referral ID Status Reason Start Date Expiration Date V isits Requested Visits Authorized [id number] New Request 06/26/2024 07/21/2025 1 1 [facility] Auth/Cert Specialty Diagnoses / Procedures Referred By Contjosé miguel t Referred To Contact Diagnoses Ventricular tachycardia Tania Zhang MD [address] [place] [address] [facility] [address] [place] [address] Referral ID Status Reason Start Date Expiration Date Visits Re quested Visits Authorized [id number] 1 1 [facility] Summary Purpose Family History No Family History Records FoundNo Family History Records FoundNo Family History Records FoundNo Family History Records FoundNo Family History Records FoundNo Family History Records FoundNo Family History Records FoundNo Family History Records FoundNo Family History Records Found Advance Directives No Advanced Directives Records FoundDocuments on File Type Date Recorded Patient Formulator Expl anation Advance Directives and Livin g Will 03/24/2020 5:51 AM Documents on File Type Date Recorded Patient Formulator Expl anation Advance Directives and Living Will Power of Sports Equipment Repairer Latest Code Status on File Code Status [...] Code 07/19/2017 2:17 PM 07/20/2017 1:00 PM Date Activated Date Inactivated Comments 04/09/2024 3:16 PM Date Activated Date Inactivated Comments 01/18/2021 12:08 PM 04/09/2024 3:16 PM Date Activated Date Inactivated Comments 11/27/2019 12:29 PM 01/18/2021 12:08 PM Date Activated Date Inactivated Comments 07/19/2017 2:17 PM 07/20/2017 1:00 PM Date Activated Date Inactivated Comments 04/09/2024 3:16 PM Date Activated Date Inactivated Comments 01/18/2021 12:08 PM 04/09/2024 3:16 PM Date Activated Date Inactivated Comments 11/27/2019 12:29 PM 01/18/2021 12:08 PM Date Activated Date Inactivated Comments 07/19/2017 2:17 PM 07/20/2017 1:00 PM Documents on File Type Date Recorded Patient Formulator Expl [facility] Power of Sports Equipment Repairer 06/12/2024 11:58 AM [facility] Documents on File Type Date Recorded Patient Formulator Expl [facility] Power of Sports Equipment Repairer 06/12/2024 11:58 AM [facility] Date Activated Date Inactivated Comments 09/22/2024 3:17 PM Date Activated Date Inactivated Comments 04/09/2024 3:16 PM 09/22/2024 3:17 PM Date Activated Date Inactivated Comments 01/18/2021 12:08 PM 04/09/2024 3:16 PM Date Activated Date Inactivated Comments 11/27/2019 12:29 PM 01/18/2021 12:08 PM Date Activated Date Inactivated Comments 07/19/2017 2:17 PM 07/20/2017 1:00 PM Discharge Instructions * Discharge Instr - Other Orders* Melba Miller RN - 03/24/2020 1:57 PM EDT Reviewed AVS with pt and his * Additional Instructions* Kelly Morales CNP - 03/22/2020 - Follow the preprinted instruction provided by your [facility] Physician. - Take all medications as prescribed. [...] Referral Specialty Diagnoses / Procedures [facility] Referred To Contact Diagnoses Chronic systolic heart failure Procedures FUNCTIONAL VO2 TESTING Ajit Hurtado MD [address] [place] [phone] Referral ID Status Reason Start Date Expiration Date V isits Requested Visits Authorized [id number] New Request 08/30/2022 09/24/2023 1 1 Specialty Diagnoses / Procedures [facility] Referred To Contact Diagnoses Encounter for long-term (current) use of high-risk medication PVC's (premature ventricular contractions) Encounter for long-term (current) use of medications Procedures PFT STANDARD Alexander Cox MD [address] [place] [phone] Referral ID Status Reason Start Date Expiration Date V isits Requested Visits Authorized [id number] New Request 05/12/2022 06/06/2023 1 1 Specialty Diagnoses / Procedures Referred By Contac t Referred To Contact Ajit Hurtado MD [address] [place] [address] Referral ID Status Reason Start Date Expiration Date Visits Re quested Visits Authorized [id number] Closed 1 1 Specialty Diagnoses / Procedures Referred By Contac t Referred To Contact Procedures PACEMAKER/ICD INTERROGATION Jett Jose MD [address] [place] [address] Referral ID Status Reason Start Date Expiration Date V isits Requested Visits Authorized [id number] New Request 04/13/2024 05/08/2025 1 1 Referral ID Status Reason Start Date Expiration Date V isits Requested Visits Authorized [id number] New Request 04/13/2024 05/08/2025 1 1 Specialty Diagnoses / Procedures Referred By Contac t Referred To Contact Cardiac Rehabilitation Diagnoses Acute on chronic systolic heart failure Procedures OR OUTPATIENT CARDIAC REHAB W/CONT ECG MONITORING Naty Manley, HORSE TRAINER-FUNERAL HOME ASSOCIATE [address] [place] [address] Referral ID Status Reason Start Date Expiration Date V isits Requested Visits Authorized [id number] New Request 04/13/2024 05/08/2025 1 1 Specialty Diagnoses / Procedures Referred By Contac t Referred To Contact Procedures LEFT VENTRICULAR SYSTOLIC FUNCTION (LVSF) ASSESSMENT Andrew Adams PA-C [address] [address] Referral ID Status Reason Start Date Expiration Date V isits Requested Visits Authorized [id number] New Request 04/09/2024 05/04/2025 1 1 Specialty Diagnoses / Procedures Referred By Contac t Referred To Contact Procedures DVT/VTE RISK ASSESSMENT Andrew Adams PA-C [address] [address] Referral ID Status Reason Start Date Expiration Date V isits Requested Visits Authorized [id number] New Request 04/09/2024 05/04/2025 1 1 Specialty Diagnoses / Procedures Referred By Contac t Referred To Contact Procedures LEFT VENTRICULAR SYSTOLIC FUNCTION (LVSF) ASSESSMENT Carmela Narayanan PA-C [address] [facility] [address] [place] [address] Referral ID Status Reason Start Date Expiration Date V isits Requested Visits Authorized [id number] New Request 04/09/2024 05/04/2025 1 1 Specialty Diagnoses / Procedures Referred By Contac t Referred To Contact Procedures ECG Carmela Narayanan PA-C [address] [facility] [address] [place] [address] Referral ID Status Reason Start Date Expiration Date V isits Requested Visits Authorized [id number] New Request 04/09/2024 05/04/2025 1 1 Specialty Diagnoses / Procedures Referred By Contac t Referred To Contact Procedures DVT/VTE RISK ASSESSMENT Carmela Narayanan PA-C [address] [facility] [address] [place] [address] Referral ID Status Reason Start Date Expiration Date V isits Requested Visits Authorized [id number] New Request 04/09/2024 05/04/2025 1 1 Specialty Diagnoses / Procedures Referred By Contac t Referred To Contact [facility] [address] [place] [address] Referral ID Status Reason Start Date Expiration Date Visits Re quested Visits Authorized Specialty Diagnoses / Procedures Referred By Contac t Referred To Contact Procedures PACEMAKER/ICD INTERROGATION Prince Falk MD [address] [place] [address] Referral ID Status Reason Start Date Expiration Date V isits Requested Visits Authorized [id number] New Request 05/25/2024 06/19/2025 1 1 Specialty Diagnoses / Procedures Referred By Contac t Referred To Contact Procedures PLATELET MONITORING PER PROTOCOL Emerald Harden PA-C [address] [place] [address] Referral ID Status Reason Start Date Expiration Date V isits Requested Visits Authorized [id number] New Request 05/25/2024 06/19/2025 1 1 Specialty Diagnoses / Procedures Referred By Contac t Referred To Contact Procedures DVT/VTE RISK ASSESSMENT Emerald Harden PA-C [address] [facility] [address] [place] [address] Referral ID Status Reason Start Date Expiration Date V isits Requested Visits Authorized [id number] New Request 05/25/2024 06/19/2025 1 1 Referral ID Status Reason Start Date Expiration Date V isits Requested Visits Authorized [id number] New Request 05/25/2024 06/19/2025 1 1 Specialty Diagnoses / Procedures Referred By Contac t Referred To Contact Diagnoses Atrial fibrillation, unspecified type Procedures CT CARDIAC PULMONARY VENOGRAM CHG CT HEART CONTRAST EVAL CARDIAC STRUCTURE&MORPH Alexander Cox MD [address] [place] [phone] Referral ID Status Reason Start Date Expiration Date Visits Re quested Visits Authorized [id number] Closed 06/04/2024 06/29/2025 1 1 Specialty Diagnoses / Procedures Referred By Contac t Referred To Contact Pharmacy Diagnoses Chronic combined systolic and diastolic heart failure Maria Del Carmen Quinones, HORSE TRAINER-FUNERAL HOME ASSOCIATE [address] [place] [phone] Referral ID Status Reason Start Date Expiration Date V isits Requested Visits Authorized [id number] New Request 09/23/2024 10/18/2025 1 1 Referral ID Status Reason Start Date Expiration Date V isits Requested Visits Authorized [id number] New Request 09/23/2024 10/18/2025 1 1 Specialty Diagnoses / Procedures Referred By Contac t Referred To Contact Procedures DVT/VTE RISK ASSESSMENT Sourav Peres MD [address] [place] [address] [address] [place] [address] Referral ID Status Reason Start Date Expiration Date V isits Requested Visits Authorized [id number] New Request 09/22/2024 10/17/2025 1 1 Specialty Diagnoses / Procedures Referred By Contac t Referred To Contact Procedures ECG ManuelLea, HORSE TRAINER-FUNERAL HOME ASSOCIATE [address] [facility] [address] [place] [address] Referral ID Status Reason Start Date Expiration Date V isits Requested Visits Authorized [id number] New Request 09/30/2024 10/25/2025 1 1 Additional Source Comments (unrecognized sect ion and content) No Status Records FoundNo Status Records FoundNo Status Records FoundNo Status Records FoundNo Status Records FoundNo Status Records FoundNo Status Records FoundNo Status Records FoundNo Status Records Found INFORMATION SOURCE (unrecogn ized section and content) DATE CREATED AUTHOR 12/12/2019 [facility] DATE CREATED AUTHOR AUTHOR'S ORGANIZ ATION 12/26/2019 [facility] DATE CREATED AUTHOR AUTHOR'S ORGANIZ ATION 04/10/2020 [facility] DATE CREATED AUTHOR AUTHOR'S ORGANIZ ATION 04/13/2020 [facility] DATE CREATED AUTHOR AUTHOR'S ORGANIZ ATION 08/25/2020 [facility] DATE CREATED AUTHOR AUTHOR'S ORGANIZ ATION 11/24/2020 [facility] DATE CREATED AUTHOR AUTHOR'S ORGANIZ ATION 05/03/[address] [facility] DATE CREATED AUTHOR AUTHOR'S ORGANIZ ATION 05/23/2024 [facility] DATE CREATED AUTHOR AUTHOR'S ORGANIZ ATION 10/13/2024 [facility] Reason for Visit (unrecogniz ed section [...] PFT STANDARD Alexander Cox MD [address] [place] [phone] Referral ID Status Reason Start Date Expiration Date V isits Requested Visits Authorized [id number] New Request 05/12/2022 06/06/2023 1 1 Specialty Diagnoses / Procedures Referred By Contac t Referred To Contact Diagnoses Chronic systolic heart failure Procedures FUNCTIONAL VO2 TESTING Ajit Hurtado MD [address] [place] [phone] Referral ID Status Reason Start Date Expiration Date V isits Requested Visits Authorized [id number] New Request 08/30/2022 09/24/2023 1 1 Reason Comments Follow-up Reason Comments Follow-up Denies chest pain; i nforms local placement officer started lasix which has helped Reason Onset Date Comments Results 11/06/2023 Reason Onset Date Comments Outside Medical Records Request 12/27/2023 Reason Comments Holter Monitor Hook-up Specialty Diagnoses / Procedures [facility] Referred To Contact Diagnoses ICD (implantable cardioverter-defibrillator) discharge Chronic systolic heart failure Emmy Moura MD [address] [place] [phone] [facility] [address] [place] [address] Referral ID Status Reason Start Date Expiration Date Visits Re quested Visits Authorized [id number] 1 1 Reason Comments Labs Only Specialty Diagnoses / Procedures [facility] Referred To Contact Diagnoses V-tach V-tach [I47.20] Procedures OR THORACOSCOPY W/THORACIC SYMPATHECTOMY SYMPATHECTOMY THORACIC ROBOTIC Prince Falk MD [address] [place] [address] [address] [place] [address] [facility] [address] [place] [address] Referral ID Status Reason Start Date Expiration Date Visits Re quested Visits Authorized [id number] 1 1 Reason Comments New Patient Fatigue; recent [place] stay-pacemaker/defibrillator was shocking him Specialty Diagnoses / Procedures Referred By Natalie whitaker Referred To Contact Thoracic Surgery Diagnoses PVC (premature ventricular contraction) V-tach Alexander Cox MD [address] [place] [phone] Prince Falk MD [address] [place] [address] [address] [place] [phone] Referral ID Status Reason Start Date Expiration Date V isits Requested Visits Authorized [id number] New Request 05/12/2024 06/06/2025 1 1 Reason Comments Follow-up Pt reports SOBAnd so re where incisions are Pt reports clear phlegm Pt without oxyTylenol doesn't helpPt wondering if pacemaker is back on (was told it was turned off) Specialty Diagnoses / Procedures Referred By Natalie whitaker Referred To Contact Diagnoses Atrial fibrillation, unspecified type Atrial fibrillation, unspecified type [I48.91] Procedures OR CARDIOVERSION ELECTIVE ARRHYTHMIA EXTERNAL CARDIOVERSION (EP LAB) [facility] [address] [place] [address] [facility] [address] [place] [address] Referral ID Status Reason Start Date Expiration Date Visits Re quested Visits Authorized [id number] 1 1 Reason Onset Date Comments Condition Update 06/18/2024 Reason Comments Follow-up SOB, Light headednes s Reason Onset Date Comments Other 08/10/2024 Specialty Diagnoses / Procedures Referred By Natalie whitaker Referred To Contact Diagnoses Pacemaker at end of battery life Pacemaker at end of battery life [Z45.010] Procedures OR REMVL PERM PM PLS GEN W/REPL PLSE GEN MULT LEAD PACEMAKER SCHED CHANGEOUT, BIV DEVICE ([id number]) Alexander Cox MD [address] [place] [phone] [facility] [address] [place] [address] Referral ID Status Reason Start Date Expiration Date Visits Re quested Visits Authorized [id number] 1 1 Irwin Molina DPM - 03/24/2020 6:57 AM Irwin Ryan DPM - 03/24/2020 6:56 AM EDTPJace enrique II, MD - 03/23/2020 12:45 PM EDT H&P Notes (unrecognized sect ion and content) INTERVAL HISTORY AND PHYSICAL Patient Name: Tania Venegas Admit Date: MR #: [id number] : 1965 The H&P has been reviewed and the patient has been examined. I concur with the findings of the H&P. There are no significant changes. It is appropriate to proceed with the planned procedure. 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 [...] if needed 9. Coronary artery disease involving [place] coronary artery of [place] heart without angina pectoris Patient with history [...] Evie Candelaria DO prior to 03/24 at [facility]; LEFT ANKLE HARDWARE REMOVAL, CALCANEAL OSTEOTOMY, [...] (54 y.o.) Date of Service: 03/24/2020 CSN: [id number] Procedure(s): LEFT ANKLE HARDWARE REMOVAL, CALCANEAL OSTEOTOMY, TALONAVICULAR REVISION FUSION, 1ST TARSOMETATARSAL FUSION, OSTEOTOMY TALUS Pre-Operative Diagnoses: * M96.0, M19.072, S93.422A Post-Operative Diagnoses: Surgeon(s) and Role: * vEie Candelaria, DO - Primary * John Saravia DO - Resident - Assisting * Irwin Molina DPM - Fellow Anesthesiologist: John Paul Ricardo MD ROLLING MACHINE TENDER: Mira Tao CRNA Bundle Cutter: Mari Mitchell RN Scrub Person Relief: ST Celia Scrub Person: ST Lakesha Nurse Float: Araceli Shafer RN Operative findings: consistent with pre op diagnosis Intra and immediate post-operative complications: none Type of anesthesia used: Regional, General Estimated blood loss: 50 mL Estimated urine output: Refer to surgical log Specimen(s): * No specimens in log * Implant(s): Implant Name Type Inv. Item Serial No. General Claims Agent Lot No. LRB No. Used Action FILLER 10CC BONE VOID CERAMENT - [id number] FILLER 10CC BONE VOID CERAMENT BONE SUPPO [id number] Left 1 Implanted 4 screws and 2 wedges Left 6 Explanted 5 screws and 1 plate Left 1 Explanted BioActive Bone Graft Putty 7.5cc MEDLINE [place] [id number] Left 1 Implanted SCREW 7 X 55 X 16MM UMESH HEADED SHORT THRD UNITE - [id number] SCREW 7 X 55 X 16MM UMESH HEADED SHORT THRD UNITE [employer] IN Left 2 Implanted PLATE 18MM Z BETA MOTOBAND MAX - [id number] PLATE 18MM Z BETA MOTOBAND MAX [employer] [id number] Left 1 Implanted DynaForce Plate Sterile Instrument Kit [id number] Left 1 Implanted KIT 18 X 18 X 18MM SUPERELASTIC MOTOCLIP HIMAX - [id number] KIT 18 X 18 X 18MM SUPERELASTIC MOTOCLIP HIMAX [employer] [id number] Left 1 Implanted SCREW 4.5 X 50MM UMESH HEADED UNITE - [id number] SCREW 4.5 X 50MM UMESH HEADED UNITE MEDLINE IN Left 2 Implanted SCREW 3.5 X 30MM NON LOCK TI ALLOY MOTOBAND CP - [id number] SCREW 3.5 X 30MM NON LOCK TI ALLOY MOTOBAND CP [employer] [id number] Left 2 Implanted Drain(s): * No LDAs found * Wound(s): Wound 03/24/20 Surgical Wound Foot Left (Active) Irwin Molina DPM 03/24/2020 12:06 PM documented in this encounter Care Teams (unrecognized sec tion and content) Marketing Programs Manager Relationship Specialty Start Date End Date Alexander Cox MD [address] [place] [phone] PCP - Referring 2 Clinical Cardiac Electrophysiology 07/19/17 [place] [address] [place] [address] [id number] PCP - General Internal Medicine 03/17/20 [place] [address] [place] [address] Interventional Cardiology 11/10/19 Evie Candelaria, DO [address] [place] [address] Orthopaedic Surgery 03/18/20 Marketing Programs Manager Relationship Specialty Start Date End Date Alexander Cox MD [address] [place] [address] [phone] PCP - Referring 2 Clinical Cardiac Electrophysiology 07/19/17 Oliver Springer Jr., DO [facility] [place] [address] PCP - General Internal Medicine 03/17/20 [place] [address] [place] [address] Interventional Cardiology 11/10/19 Evie Candelaria, DO [address] [place] [address] Orthopaedic Surgery 03/18/20 Marketing Programs Manager Relationship Specialty Start Date End Date Alexander Cox MD [address] [place] [phone] PCP - Referring 2 Clinical Cardiac Electrophysiology 07/19/17 Oliver Springer Jr., DO [address] [place] [phone] PCP - General Internal Medicine 03/17/20 [place] [address] [place] [phone] Interventional Cardiology 11/10/19 Evie Candelaria, DO [address] [place] [address] Orthopaedic Surgery 03/18/20 Marketing Programs Manager Relationship Specialty Start Date End Date Alexander Cox MD [address] [place] [phone] PCP - Referring 2 Clinical Cardiac Electrophysiology 07/19/17 Oliver Springer Jr., DO [address] [place] [phone] PCP - General Internal Medicine 03/17/20 [place] [address] [place] [phone] Interventional Cardiology 11/10/19 Evie Candelaria, DO [address] [place] [address] Orthopaedic Surgery 03/18/20 Marketing Programs Manager Relationship Specialty Start Date End Date Alexander Cox MD [address] [place] [address] PCP - Referring 2 Clinical Cardiac Electrophysiology 07/19/17 Oliver Springer Jr., DO [address] [place] [address] PCP - General Internal Medicine 03/17/20 [place] [address] [place] [phone] Interventional Cardiology 11/10/19 Evie Candelaria, DO [address] [place] [address] Orthopaedic Surgery 03/18/20 Marketing Programs Manager Relationship Specialty Start Date End Date Alexander Cox MD [address] [place] [phone] PCP - Referring 2 Clinical Cardiac Electrophysiology 07/19/17 Oliver Springer Jr., DO [address] [place] [phone] PCP - General Internal Medicine 03/17/20 [place] [address] [place] [address] Interventional Cardiology 11/10/19 Evie Candelaria, DO [address] [place] [address] Orthopaedic Surgery 03/18/20 Marketing Programs Manager Relationship Specialty Start Date End Date Alexander Cox MD [address] [place] [phone] PCP - Referring 2 Clinical Cardiac Electrophysiology 07/19/17 Oliver Springer Jr., DO [address] [place] [phone] PCP - General Internal Medicine 03/17/20 [place] [address] [place] [address] Interventional Cardiology 11/10/19 Evie Candelaria, DO [address] [place] [address] Orthopaedic Surgery 03/18/20 Marketing Programs Manager Relationship Specialty Start Date End Date Alexander Cox MD [address] [place] [phone] PCP - Referring 2 Clinical Cardiac Electrophysiology 07/19/17 Oliver Springer Jr., DO [address] [place], [place] [phone] PCP - General Internal Medicine 03/17/20 [place] [address] [place] [address] Interventional Cardiology 11/10/19 Evie Candelaria DO [address] [place] [address] Orthopaedic Surgery 03/18/20 Marketing Programs Manager Relationship Specialty Start Date End Date Alexander Cox MD [address] [place] [phone] PCP - Referring 2 Clinical Cardiac Electrophysiology 07/19/17 Oliver Springer Jr., DO [address] [place], [place] [phone] PCP - General Internal Medicine 03/17/20 [place] [address] [place] [address] Interventional Cardiology 11/10/19 Evie Candelaria DO [address] [place] [address] Orthopaedic Surgery 03/18/20 Marketing Programs Manager Relationship Specialty Start Date End Date Alexander Cox MD [address] [place] [phone] PCP - Referring 2 Clinical Cardiac Electrophysiology 07/19/17 Oliver Springer Jr., DO [address] [place] [id number] PCP - General Internal Medicine 03/17/20 [place] [address] [place] [address] Interventional Cardiology 11/10/19 Evie Candelaria DO [address] [place] [address] Orthopaedic Surgery 03/18/20 Marketing Programs Manager Relationship Specialty Start Date End Date Alexander Cox MD [address] [place] [phone] PCP - Referring 2 Clinical Cardiac Electrophysiology 07/19/17 Oliver Springer Jr., DO [address] [place] [address] [phone] PCP - General Internal Medicine 03/17/20 [place] [address] [place] [address] Interventional Cardiology 11/10/19 Evie Candelaria DO [address] [place], [place] [phone] Orthopaedic Surgery 03/18/20 Marketing Programs Manager Relationship Specialty Start Date End Date Alexander Cox MD [address] [place] [phone] PCP - Referring 2 Clinical Cardiac Electrophysiology 07/19/17 Oliver Springer Jr., DO [address] [place] [address] [phone] PCP - General Internal Medicine 03/17/20 [place] [address] [place] [address] Interventional Cardiology 11/10/19 Evie Candelaria DO [address] [place] [address] Orthopaedic Surgery 03/18/20 Marketing Programs Manager Relationship Specialty Start Date End Date Alexander Cox MD [address] [place] [address] PCP - Referring 2 Clinical Cardiac Electrophysiology 07/19/17 Oliver Springer Jr., DO [address] [place] [address] [phone] PCP - General Internal Medicine 03/17/20 [place] [address] [place] [phone] Interventional Cardiology 11/10/19 Evie Candelaria DO [address] [place] [address] Orthopaedic Surgery 03/18/20 Marketing Programs Manager Relationship Specialty Start Date End Date Alexander Cox MD [address] [place] [address] PCP - Referring 2 Clinical Cardiac Electrophysiology 07/19/17 Oliver Springer Jr., DO [address] [place] [address] [phone] PCP - General Internal Medicine 03/17/20 [place] [address] [place] [address] Interventional Cardiology 11/10/19 Evie Candelaria DO [address] [place], [place] [phone] Orthopaedic Surgery 03/18/20 Marketing Programs Manager Relationship Specialty Start Date End Date Alexander Cox MD [address] [place] [address] PCP - Referring 2 Clinical Cardiac Electrophysiology 07/19/17 Oliver Springer Jr., DO [address] [place] [address] PCP - General Internal Medicine 03/17/20 [place] [address] [place] [phone] Interventional Cardiology 11/10/19 Evie Candelaria DO [address] [place] [address] Orthopaedic Surgery 03/18/20 Marketing Programs Manager Relationship Specialty Start Date End Date Alexander Cox MD [address] [place] [address] PCP - Referring 2 Clinical Cardiac Electrophysiology 07/19/17 Oliver Springer Jr., DO [address] [place] [address] [phone] PCP - General Internal Medicine 03/17/20 [place] [address] [place] [address] Interventional Cardiology 11/10/19 Evie Candelaria DO [address] [place] [address] Orthopaedic Surgery 03/18/20 Marketing Programs Manager Relationship Specialty Start Date End Date Alexander Cox MD [address] [place] [phone] PCP - Referring 2 Clinical Cardiac Electrophysiology 07/19/17 Oliver Springer Jr., DO [address] [place] [address] [phone] PCP - General Internal Medicine 03/17/20 [place] [address] [place] [address] Interventional Cardiology 11/10/19 Evie Candelaria DO [address] [place] [address] Orthopaedic Surgery 03/18/20 05/25/24 Marketing Programs Manager Relationship Specialty Start Date End Date Alexander Cox MD [address] [place] [phone] PCP - Referring 2 Clinical Cardiac Electrophysiology 07/19/17 Oliver Springer Jr., DO [address] [place] [address] [phone] PCP - General Internal Medicine 03/17/20 [place] [address] [place] [address] Interventional Cardiology 11/10/19 Marketing Programs Manager Relationship Specialty Start Date End Date Alexander Cox MD [address] [place] [address] [phone] PCP - Referring 2 Clinical Cardiac Electrophysiology 07/19/17 Oliver Springer Jr., DO [address] [place], [place] [phone] PCP - General Internal Medicine 03/17/20 [place] [address] [place] [address] Interventional Cardiology 11/10/19 Evie Candelaria DO [address] [place] [address] Orthopaedic Surgery 03/18/20 05/25/24 Marketing Programs Manager Relationship Specialty Start Date End Date Alexander Cox MD [address] [place] [phone] PCP - Referring 2 Clinical Cardiac Electrophysiology 07/19/17 Oliver Springer Jr., DO [address] [place], [place] [phone] PCP - General Internal Medicine 03/17/20 [place] [address] [place] [address] Interventional Cardiology 11/10/19 Marketing Programs Manager Relationship Specialty Start Date End Date Alexander Cox MD [address] [place] [address] PCP - Referring 2 Clinical Cardiac Electrophysiology 07/19/17 Oliver Springer Jr., DO [address] [place] [address] [phone] PCP - General Internal Medicine 03/17/20 [place] [address] [place] [address] Interventional Cardiology 11/10/19 Marketing Programs Manager Relationship Specialty Start Date End Date Alexander Cox MD [address] [place] [address] PCP - Referring 2 Clinical Cardiac Electrophysiology 07/19/17 Oliver Springer Jr., DO [address] [place] [address] [phone] PCP - General Internal Medicine 03/17/20 [place] [address] [place] [address] Interventional Cardiology 11/10/19 Marketing Programs Manager Relationship Specialty Start Date End Date Alexander Cox MD [address] [place] [address] PCP - Referring 2 Clinical Cardiac Electrophysiology 07/19/17 Oliver Springer Jr., DO [address] [place] [address] [phone] PCP - General Internal Medicine 03/17/20 [place] [address] [place] [address] Interventional Cardiology 11/10/19 Marketing Programs Manager Relationship Specialty Start Date End Date Alexander Cox MD [address] [place] [address] PCP - Referring 2 Clinical Cardiac Electrophysiology 07/19/17 Oliver Springer Jr., DO [address] [place] [address] [phone] PCP - General Internal Medicine 03/17/20 [place] [address] [place] [address] Interventional Cardiology 11/10/19 Marketing Programs Manager Relationship Specialty Start Date End Date Alexander Cox MD [address] [place] [phone] PCP - Referring 2 Clinical Cardiac Electrophysiology 07/19/17 Oliver Springer Jr., DO [address] [place] [address] [phone] PCP - General Internal Medicine 03/17/20 [place] [address] [place] [address] Interventional Cardiology 11/10/19 Marketing Programs Manager Relationship Specialty Start Date End Date Alexander Cox MD [address] [place] [phone] PCP - Referring 2 Clinical Cardiac Electrophysiology 07/19/17 Oliver Spirnger Jr., DO [address] [place] [address] [phone] PCP - General Internal Medicine 03/17/20 [place] [address] [place] [address] Interventional Cardiology 11/10/19 Marketing Programs Manager Relationship Specialty Start Date End Date Alexander Cox MD [address] [place] [address] PCP - Referring 2 Clinical Cardiac Electrophysiology 07/19/17 Oliver Springer Jr., DO [address] [place] [address] [phone] PCP - General Internal Medicine 03/17/20 [place] [address] [place] [address] Interventional Cardiology 11/10/19 Marketing Programs Manager Relationship Specialty Start Date End Date Alexander Cox MD [address] [place] [phone] PCP - Referring 2 Clinical Cardiac Electrophysiology 07/19/17 Oliver Springer Jr., DO [address] [place] [address] [phone] PCP - General Internal Medicine 03/17/20 [place] [address] [place] [address] Interventional Cardiology 11/10/19 Marketing Programs Manager Relationship Specialty Start Date End Date Alexander Cox MD [address] [place] [phone] PCP - Referring 2 Clinical Cardiac Electrophysiology 07/19/17 Oliver Springer Jr., DO [address] [place] [address] [phone] PCP - General Internal Medicine 03/17/20 [place] [address] [place] [address] Interventional Cardiology 11/10/19 Marketing Programs Manager Relationship Specialty Start Date End Date Alexander Cox MD [address] [place] [address] PCP - Referring 2 Clinical Cardiac Electrophysiology 07/19/17 Oliver Springer Jr., DO [address] [place] [address] PCP - General Internal Medicine 03/17/20 [place] [address] [place] [address] Interventional Cardiology 11/10/19 Scheduled Active and Recently Administ ered Medications (unrecognized section and content) Medication Order 04/11/2024 04/12/2024 04/13/2024 AMIOdarone (PACERONE) tablet 200 mg 200 mg, Oral, DAILY, First dose on 04/18/24 at 0900, Until Discontinued AMIOdarone (PACERONE) tablet 400 mg 400 mg, Oral, 3 TIMES DAILY, 21 doses, First dose on Sat04/10/24 at 1130, Last dose on Sat04/17/24 at 0900 0901 (Given - Provider: Salvador Donnelly RN)1344 (Given - Provider: Salvador Donnelly, RN)2058 (Given - Provider: Judith Kelly, RADHA) 0951 (Given - Provider: Cal Roy, RN)1500 (Given - Provider: Cal oRy, RN)2024 (Given - Provider: Judith Kelly, RADHA) 0828 (Given - Provider: Dean Garcia, RN)1406 (Given - Provider: Dean Garcia, RN) aspirin chewable tablet 81 mg 81 mg, Oral, DAILY, First dose (after last modification) on 04/11/24 at 0900, Until Discontinued 0901 (Given - Provider: Salvador Donnelly RN) 0951 (Given - Provider: Cal Roy, RN) 0828 (Given - Provider: Dean Garcia, RN) eplerenone (INSPRA) tablet 25 mg 25 mg, Oral, DAILY, First dose on Sat04/10/24 at 0900, Until Discontinued 900 (Given - Provider: Salvador Donnelly RN) 0952 (Given - Provider: Cal Roy, RADHA) 08 (Given - Provider: Dean Garcia, RN) Gadobutrol (GADAVIST) 1 MMOL/ML injection 1-30 mL (COMPLETED) 1-30 mL, Intravenous, ONCE, 1 dose, On 04/13/24 at 1145, Extravasation Risk 1143 (Given - Radiology - Provider: Kathy Hayden) magnesium oxide (MAG-OX) tablet 400 mg 400 mg, Oral, DAILY, First dose on Sat04/10/24 at 0900, Until Discontinued 901 (Given - Provider: Salvador Donnelly RN) 0951 (Given - Provider: Cal Roy RN) 08 (Given - Provider: Dean Garcia, RADHA) Metoprolol succinate (TOPROL-XL) tablet XL 25 mg 25 mg, Oral, DAILY AT BEDTIME, First dose on Sat04/09/24 at 2100, Until Discontinued, Slow release product. Do not crush. Extended release can be cut in half. 2099 (Given - Provider: Judith Kelly RN) 2024 (Given - Provider: Judith Kelly, RADHA) Metoprolol succinate (TOPROL-XL) tablet XL 50 mg 50 mg, Oral, DAILY, First dose on Sat04/10/24 at 0900, Until Discontinued, Slow release product. Do not crush. Extended release can be cut in half. 09 (Given - Provider: Salvador Donnelly RN) 0953 (Given - Provider: Cal Roy RN) 08 (Given - Provider: Dean Garcia, RADHA) mexiletine (MEXITIL) capsule 200 mg 200 mg, Oral, EVERY 8 HOURS, First dose on Sat04/09/24 at 1830, Until Discontinued 0642 (Given - Provider: Laura Tomlin RN)1344 (Given - Provider: Salvador Donnelly RN)2100 (Given - Provider: Judith Kelly RN) 0642 (Given - Provider: Judith Kelly, RADHA)1500 (Given - Provider: Cal Roy, RN)2024 (Given - Provider: Judith Kelly RN) 0548 (Given - Provider: Judith Kelly RN)1405 (Given - Provider: Dean Garcia, RN) Potassium chloride (K-DUR) tablet ER 20 mEq 20 mEq, Oral, DAILY, First dose on Sat04/10/24 at 0900, Until Discontinued, Swallow tablets whole; do not crush, chew, or suck on tablet. Tablet may also be broken in half and each half swallowed separately. 0901 (Given - Provider: Salvador Donnelly RN) 0951 (Given - Provider: Cal Roy, RADHA) 08 (Given - Provider: Dean Garcia, RN) Rosuvastatin (CRESTOR) tablet 20 mg 20 mg, Oral, DAILY AT BEDTIME, First dose (after last modification) on Sat04/10/24 at 2100, Until Discontinued 2100 (Given - Provider: Judith Kelly RN) 2024 (Given - Provider: Judith Kelly, RADHA) sacubitril-valsartan (ENTRESTO) 49-51 MG per tablet 1 tablet 1 tablet, Oral, EVERY 12 HOURS, First dose (after last modification) on Sat04/10/24 at 1700, Until Discontinued 0903 (Given - Provider: Salvador Donnelly RN)2100 (Given - Provider: Judith Kelly RN) 0952 (Given - Provider: Cal Roy, RADHA)2026 (Given - Provider: Judith Kelly RN) 08 (Given - Provider: Dean Garcia, RN) warfarin (COUMADIN) tablet 5 mg 5 mg, Oral, EVERY M, W & F, First dose on Sat04/13/24 at 1800, Until Discontinued, Swallow tablet whole; do not crush, split or chew. Contact pharmacy if alternate route or dose is needed., On hold since Sat04/12/2024 at 1006 until manually unheld 1006 (Held by provider - Provider: Naty Manley APRN-[employer]OCIATE - Reason: Other) 1633 (Unheld by provider - Provider: System Discharge) warfarin (COUMADIN) tablet 7.5 mg (CANCELED) 7.5 mg, Oral, CUSTOM FREQUENCY (Once per day on Saturday), First dose on 04/11/24 at 1800, Until Discontinued, Swallow tablet whole; do not crush, split or chew. Contact pharmacy if alternate route or dose is needed. 1842 (Given - Provider: Salvador Donnelly RN) warfarin (COUMADIN) tablet 7.5 mg 7.5 mg, Oral, DAILY EARLY EVENING, First dose (after last modification) on 04/12/24 at 1800, Until Discontinued, Swallow tablet whole; do not crush, split or chew. Contact pharmacy if alternate route or dose is needed. 1804 (Given - Provider: Cal Roy RN) PRN Medication Order 04/11/2024 04/12/2024 04/13/2024 Acetaminophen (TYLENOL) tablet 650 mg 650 mg, Oral, EVERY 4 HOURS NEEDED, Starting on Yvonne 04/09/24 at 1627, Until Sat04/13/24 at 1633, Mild Pain, Oral temp > 101.5 F, Headaches, Maximum dose of acetaminophen is 4000 mg from all sources in 24 hours. magnesium oxide (MAG-OX) tablet 800 mg 800 mg, Oral, ADMINISTER DIRECTED, Starting on Yvonne 04/09/24 at 1627, Until Sat04/13/24 at 1633, See admin instructions, For Magnesium 1.6 - 2.0, give 800 mg of Magnesium oxide 0642 (Given - Provider: Judith Kelly RN) 0548 (Given - Provider: Judith Kelly RN) Magnesium sulfate 4 g in sterile water 50 ml premix IVPB 4 g, Intravenous, Administer over 4 Hours, ADMINISTER DIRECTED, Starting on Yvonne 04/09/24 at 1627, Until 04/13/24 at 1633, Other, Magnesium Replacement Therapy, If Magnesium less than 1.6, give 4 g Magnesium Sulfate IVPB over 4 hours (may give over 1 hour if arrhythmias present). Melatonin tablet 6 mg 6 mg, Oral, DAILY AT BEDTIME NEEDED, Starting on Yvonne 04/09/24 at 1515, Until Sat04/13/24 at 1633, Insomnia Ondansetron (ZOFRAN-ODT) disintegrating tablet 4 mg 4 mg, Oral, EVERY 6 HOURS NEEDED, Starting on Yvonne 04/09/24 at 1627, Until Sat04/13/24 at 1633, Nausea / Vomiting Polyethylene glycol (MIRALAX) packet 17 g 17 g, Oral, DAILY NEEDED, Starting on Yvonne 04/09/24 at 1627, Until Sat04/13/24 at 1633, Constipation 1st Line, Constipation If No Bowel Movement in 48 Hours Potassium chloride (K-DUR) tablet ER 20 mEq 20 mEq, Oral, ADMINISTER DIRECTED, Starting on Sat04/09/24 at 1627, Until Sat04/13/24 at 1633, See admin instructions, If Cr 2.0 - 2.5 mg/dL For Potassium less than 3.6, give 20 mEq Potassium Chloride orally, recheck in AM. If Cr greater than 2.5 mg/dL contact physician/LIP for Potassium less than 3.6 for replacement orders. If potassium is low please administer magnesium first if indicated Potassium chloride (K-DUR) tablet ER 40-60 mEq 40-60 mEq, Oral, ADMINISTER DIRECTED, Starting on Sat04/09/24 at 1627, Until Sat04/13/24 at 1633, See admin instructions, If Cr less than 2.0 mg/dL 1. For Potassium 3.6 - 4.0, give 40 mEq of Potassium Chloride orally, recheck in the AM. 2. For Potassium less than 3.6, give 60 mEq Potassium Chloride orally, recheck in 8 hours. 3. If potassium is low please administer magnesium first if indicated. Senna (SENOKOT) tablet 8.6 mg 8.6 mg, Oral, EVERY 12 HOURS NEEDED, Starting on Sat04/09/24 at 1627, Until Sat04/13/24 at 1633, Constipation 2nd Line, Constipation If No Bowel Movement in 48 Hours Sodium chloride (PF) 0.9 % injection 1-100 mL (COMPLETED) 1-100 mL, Intravenous, ONCE NEEDED, 1 dose, Starting on Sat04/13/24 at 1143, Until Sat04/13/24 at 1144, Flush, MR Procedure 1144 (Given - Provid er: Kathy Hayden) Sodium chloride 0.9% IV solution 250 mL Intravenous, at 20 mL/hr, NEEDED, Starting on Sat04/09/24 at 1458, Until Sat04/13/24 at 1633, Carrier Fluid - See Admin. Inst, 250mL 0.9NS to be used as carrier fluid for intermittent small volume or piggyback medication administration as needed. Infusion rate of the carrier fluid should be set at 20 mL/hr unless the rate as the intermittent medication is less than 20 mL/hr. For intermittent medications with a rate less than 20 mL/hr set the carrier fluid at that rate of the intermittent or piggy back medication. Sodium chloride 0.9% IV solution 250 mL Intravenous, at 20 mL/hr, NEEDED, Starting on Yvonne 04/09/24 at 1618, Until Sat04/13/24 at 1633, Carrier Fluid - See Admin. Inst, 250mL 0.9NS to be used as carrier fluid for intermittent small volume or piggyback medication administration as needed. Infusion rate of the carrier fluid should be set at 20 mL/hr unless the rate as the intermittent medication is less than 20 mL/hr. For intermittent medications with a rate less than 20 mL/hr set the carrier fluid at that rate of the intermittent or piggy back medication. Scheduled Medication Order 05/24/2024 05/25/2024 05/26/2024 Acetaminophen (TYLENOL) tablet 650 mg 650 mg, Oral, EVERY 6 HOURS NON-STANDARD, First dose on Sat05/25/24 at 1400, Until Discontinued, Maximum dose of acetaminophen is 4000 mg from all sources in 24 hours., Post-op/Post-Proc 1404 (Given - Provider: Naomi Ramos RN)1945 (Given - Provider: Kelly Cruz RN) 0234 (Given - Provider: Kelly Cruz RN - Comment: RN administered meds with IV medications but the scan didn't go through.)0825 (Given - Provider: Agustín Alfaro RN)1400 (Canceled Entry - Provider: System Discharge - Comment: Automatically canceled at discontinue of medication order) AMIOdarone (PACERONE) tablet 200 mg 200 mg, Oral, DAILY, First dose on Sat05/25/24 at 1400, Until Discontinued, Post-op/Post-Proc 1405 (Given - Provider: Naomi Ramos RN) 0824 (Given - Provider: Agustín Alfaro RN) aspirin chewable tablet 81 mg 81 mg, Oral, DAILY, First dose on Sat05/25/24 at 1400, Until Discontinued, Post-op/Post-Proc 1405 (Given - Provider: Naomi Ramos RN) 0824 (Given - Provider: Agustín Alfaro RN) ceFAZolin (ANCEF) 1 g in sodium chloride 0.9% (MB PLUS) 100 mL (total volume) IVPB (COMPLETED) 1 g, Intravenous, Administer over 15 Minutes, EVERY 8 HOURS NON-STANDARD, 2 doses, First dose on Sat05/25/24 at 1530, Last dose on Sat05/25/24 at 2330, Post-op/Post-Proc 1511 ($$New Bag$$ - Provider: Naomi Ramos RN)1527 (Stopped - Provider: Kelly Cruz RN)2246 ($$New Bag$$ - Provider: Kelly Cruz RN)2301 (Paused - Provider: Kelly Cruz RN)2303 (Restarted - Provider: Kelly Cruz RN)2304 (Stopped - Provider: Kelly Cruz RN) Docusate (COLACE) capsule 100 mg 100 mg, Oral, 2 TIMES DAILY, First dose on Sat05/25/24 at 1700, Until Discontinued, Post-op/Post-Proc 1512 (Given - Provider: Naomi Ramos RN) 0825 (Given - Provider: Agustín Alfaro RN) Enoxaparin Sodium (LOVENOX) injection 40 mg 40 mg, Subcutaneous, EVERY 24 HOURS, First dose on Sat05/26/24 at 0900, Until Discontinued, For SUBCUTANEOUS route ONLY: alternate injection sites between left and right abdominal wall, pinching location and avoiding area around navel. If unable to use abdominal sites, may use the front or side of thighs., Indications: DVT/PE prophylaxis, Post-op/Post-Proc 0824 (Given - Provid er: Agustín Alfaro RN) eplerenone (INSPRA) tablet 25 mg 25 mg, Oral, DAILY, First dose on Sat05/25/24 at 1400, Until Discontinued, Post-op/Post-Proc 1506 (Given - Provider: Naomi Ramos RN) 0824 (Given - Provider: Agustín Alfaro RN) furOSEmide (LASIX) injection 20 mg (COMPLETED) 20 mg, Intravenous, ONCE, 1 dose, On Sat05/26/24 at 0845, Administer by slow IV push at a rate not exceeding 40mg/min 1031 (Given - Provid er: Agustín Alfaro RN) Ipratropium-albuterol (DUONEB) 0.5-2.5 (3) MG/3ML nebulizer solution 3 mL (CANCELED) 3 mL, Nebulization, EVERY 6 HOURS NON-STANDARD, First dose on Sat05/25/24 at 1400, Until Discontinued, Post-op/Post-Proc 1502 (Given - Provider: Radha Fairbanks RCP)202 (Given - Provider: Hermila Culp RCP) 0236 (Given - Provider: Hermila Culp RCP)0849 (Given - Provider: Lisset Simms RCP) Losartan (COZAAR) tablet 50 mg 50 mg, Oral, DAILY, First dose on Sat05/25/24 at 1500, Until Discontinued, Post-op/Post-Proc 1513 (Given - Provider: Naomi Ramos RN) 0824 (Given - Provider: Agustín Alfaro RN) Magnesium sulfate 1 g in dextrose 5% 100 mL premix IVPB (COMPLETED) 1 g, Intravenous, Administer over 60 Minutes, ONCE, 1 dose, On Sat05/26/24 at 0145 0214 ($$New Bag$$ - Provider: Kelly Cruz RN)0312 (Stopped - Provider: Kelly Cruz RN) Methocarbamol (ROBAXIN) 500 mg in Sodium chloride 0.9%, with overfill 115 mL (total volume) IVPB (COMPLETED) 500 mg, Intravenous, at 690 mL/hr, Administer over 10 Minutes, ONCE, 1 dose, On Sat05/25/24 at 2000 2020 ($$New Bag$$ - Provider: Kelly Cruz RN)202 (Stopped - Provider: Kelly Cruz RN) Metoprolol succinate (TOPROL-XL) tablet XL 25 mg 25 mg, Oral, DAILY EARLY EVENING, First dose on Sat05/25/24 at 1800, Until Discontinued, Post-op/Post-Proc 1740 (Given - Provider: Naomi Ramos RN) Metoprolol succinate (TOPROL-XL) tablet XL 50 mg 50 mg, Oral, DAILY EVERY MORNING, First dose on Sat05/25/24 at 1400, Until Discontinued, Slow release product. Do not crush. Extended release can be cut in half., Post-op/Post-Proc 1405 (Given - Provider: Naomi Ramos RN) 0825 (Given - Provider: Agustín Alfaro, RADHA) mexiletine (MEXITIL) capsule 200 mg 200 mg, Oral, 2 TIMES DAILY, First dose on Sat05/25/24 at 1700, Until Discontinued, Post-op/Post-Proc 1506 (Given - Provider: Naomi Ramos RN) 0829 (Not Given - Provider: Agustín Alfaro, RADHA - Reason: Patient/family refused) Polyethylene glycol (MIRALAX) packet 17 g 17 g, Oral, EVERY 12 HOURS, First dose on Sat05/25/24 at 2100, Until Discontinued 194 (Not Given - Provider: Kelly Cruz RN - Reason: Patient/family refused) 0829 (Not Given - Provider: Agustín Alfaro, RADHA - Reason: Order Parameters not met) Rosuvastatin (CRESTOR) tablet 10 mg 10 mg, Oral, DAILY, First dose on Sat05/25/24 at 1400, Until Discontinued, Post-op/Post-Proc 140 (Given - Provider: Naomi Ramos RN) 0825 (Given - Provider: Agustín Alfaro, RADHA) Senna (SENOKOT) tablet 17.2 mg 17.2 mg, Oral, EVERY 12 HOURS, First dose on Sat05/25/24 at 2100, Until Discontinued, Post-op/Post-Proc 194 (Given - Provider: Kelly Cruz RN) 0825 (Given - Provider: Agustín Alfaro, RADHA) Continuous Medication Order 05/24/2024 05/25/2024 05/26/2024 dextrose 5% and sodium chloride 0.45% 1,000 ml with potassium chloride 20 mEq premix IV solution (CANCELED) Intravenous, at 75 mL/hr, CONTINUOUS, Starting on Sat05/25/24 at 1400, Until Sat05/26/24 at 0600, May convert to saline well when patient is tolerating oral diet., Post-op/Post-Proc 1359 ($$New Bag$$ - Provider: Naomi [place], RN)1359 (Rate/Dose Verify - Provider: Naomi Ramos RN)1404 (Rate/Dose Verify - Provider: Naomi Ramos RN)1919 (Paused - Provider: Kelly Cruz RN)192 (Restarted - Provider: Kelly Cruz RN)2014 (Paused - Provider: Kelly Cruz RN)2016 (Restarted - Provider: Kelly Cruz RN)2136 (Rate/Dose Verify - Provider: Kelly Cruz RN)2320 (Rate/Dose Verify - Provider: Kelly Cruz RN) 0206 (Restarted - Provider: Kelly Cruz RN)0210 (Stopped - Provider: Kelly Cruz RN)0210 ($$New Bag$$ - Provider: Kelly Cruz RN)0314 (Rate/Dose Verify - Provider: Kelly Cruz RN)0551 (Rate/Dose Verify - Provider: Kelly Cruz RN)0808 (Stopped - Provider: Agustín Alfaro RN) Lactated ringers IV solution (CANCELED) Intravenous, at 75 mL/hr, CONTINUOUS, Starting on Sat05/25/24 at 0545, Until Sat05/25/24 at 1345, Pre-op/Pre-Proc 0717 ($$New Bag$$ - Provider: Suellen San MD) PRN Medication Order 05/24/2024 05/25/2024 05/26/2024 bisacodyl (DULCOLAX) suppository 10 mg 10 mg, Rectal, DAILY NEEDED, Starting on Sat05/25/24 at 1411, Until Sat05/26/24 at 1419, Constipation 1st Line BUPivacaine-EPINEPHrine (MARCAINE;SENSORCAINE W/ EPI) 0.25% -[id number] injection (CANCELED) NEEDED, Starting on Sat05/25/24 at 0922, Until Sat05/25/24 at 1345, Intra-op/Intra-Proc 0922 (Given - Provider: Prince Falk MD)1050 (Given - Provider: Prince Falk MD) ceFAZolin (ANCEF) 2 g in dextrose 100 mL premix IVPB (COMPLETED) 2 g, Intravenous, Administer over 30 Minutes, CONSTRUCTION EXECUTIVE TO PROCEDURE, 1 dose, Starting on Sat05/25/24 at 0530, Until Sat05/25/24 at 0745, Other, surgical prophylaxis, Antibiotics to be infused 15-60 minutes prior to surgical incision and complete infusion prior to incision., Pre-op/Pre-Proc 0735 ($$New Bag$$ - Provider: Suellen San MD) HYDROmorphone (DILAUDID) injection 0.5 mg (CANCELED) 0.5 mg, Intravenous, EVERY 10 MINUTES NEEDED, 8 doses, Starting on Sat05/25/24 at 0831, Until Sat05/25/24 at 1345, Moderate Pain, Severe Pain, May give a total of 4mg in PACU., Recovery 1127 (Given - Provider: Adelita Briggs RN)1137 (Given - Provider: Adelita Briggs RN)1201 (Given - Provider: Adelita Briggs RN)1215 (Given - Provider: Adelita Briggs RN)1245 (Given - Provider: Adelita Briggs RN) HYDROmorphone (DILAUDID) injection 0.5 mg 0.5 mg, Intravenous, EVERY 3 HOURS NEEDED, Starting on Sat05/25/24 at 1928, Until Sat05/26/24 at 1419, Other, breakthrough pain 1947 (Given - Provider: Kelly Cruz RN)2308 (Given - Provider: Kelly Cruz RN) 0318 (Given - Provider: Kelly Cruz RN)0619 (Given - Provider: Kelly Cruz RN)1147 (Given - Provider: Agustín Alfaro RN) Ipratropium-albuterol (DUONEB) 0.5-2.5 (3) MG/3ML nebulizer solution 3 mL 3 mL, Nebulization, EVERY 6 HOURS NEEDED, Starting on Sat05/26/24 at 0900, Until Sat05/26/24 at 1419, Shortness of Breath, Wheezing, Post-op/Post-Proc Ketorolac (TORADOL) injection 15 mg (CANCELED) 15 mg, Intravenous, EVERY 6 HOURS NEEDED, Starting on Sat05/25/24 at 1140, Until Sat05/26/24 at 0854, Moderate Pain, AVOID if CrCl < 30, SCr > 1.5, or CAD, Post-op/Post-Proc 1149 (Given - Provider: Adelita Briggs RN)1740 (Given - Provider: Naomi Ramos RN)2353 (Given - Provider: Kelly Cruz RN) Ondansetron (ZOFRAN) tablet 4 mg(Linked Group 1) 4 mg, Oral, EVERY 6 HOURS NEEDED, Starting on Sat05/25/24 at 1345, Until Sat05/26/24 at 1419, Nausea / Vomiting, 1st Line, Post-op/Post-Proc Ondansetron 4mg/2ml (ZOFRAN) injection 4 mg(Linked Group 1) 4 mg, Intravenous, EVERY 6 HOURS NEEDED, Starting on Sat05/25/24 at 1345, Until Sat05/26/24 at 1419, Nausea / Vomiting, 1st line, If patient unable to tolerate PO., Post-op/Post-Proc oxyCODONE (ROXICODONE) tablet 5 mg 5 mg, Oral, EVERY 4 HOURS NEEDED, Starting on Sat05/25/24 at 1928, Until Sat05/26/24 at 1419, Moderate Pain, Severe Pain 1945 (Given - Provider: Kelly Cruz RN)2353 (Given - Provider: Kelly Cruz RN) 0349 (Given - Provider: Kelly Cruz RN)0825 (Given - Provider: Agustín Alfaro RN) Prochlorperazine (COMPAZINE) injection 5 mg(Linked Group 2) 5 mg, Intravenous, EVERY 6 HOURS NEEDED, Starting on Sat05/25/24 at 1345, Until Sat05/26/24 at 1419, Refractory Nausea Vomiting, Administer IV if patient is unable to tolerate PO. Continue ondansetron in addition to prochlorperazine for refractory N/V., Post-op/Post-Proc Prochlorperazine (COMPAZINE) tablet 5 mg(Linked Group 2) 5 mg, Oral, EVERY 6 HOURS NEEDED, Starting on Sat05/25/24 at 1345, Until Sat05/26/24 at 1419, Refractory Nausea Vomiting, Continue ondansetron in addition to prochlorperazine for refractory N/V., Post-op/Post-Proc traMADol (ULTRAM) tablet 50 mg (CANCELED) 50 mg, Oral, EVERY 6 HOURS NEEDED, Starting on Sat05/25/24 at 1345, Until Sat05/25/24 at 1929, Mild Pain, Post-op/Post-Proc 1404 (Given - Provider: Naomi Ramos, RADHA) No Frequency Medication Order 05/24/2024 05/25/2024 05/26/2024 HYDROmorphone (DILAUDID) injection (COMPLETED) 1 dose, Starting on Sat05/25/24 at 1238, Until Sat05/25/24 at 1245, Created by cabinet override 1245 (Given - Provider: Alexander Cervantes RN) Linked Groups Order Group 1: Ondansetron (ZOFRAN) tablet 4 mgJump to med 4 mg, Oral, EVERY 6 HOURS NEEDED, Starting on Sat05/25/24 at 1345, Until Sat05/26/24 at 1419, Nausea / Vomiting, 1st Line, Post-op/Post-Proc Or Ondansetron 4mg/2ml (ZOFRAN) injection 4 mgJump to med 4 mg, Intravenous, EVERY 6 HOURS NEEDED, Starting on Sat05/25/24 at 1345, Until Sat05/26/24 at 1419, Nausea / Vomiting, 1st line, If patient unable to tolerate PO., Post-op/Post-Proc Group 2: Prochlorperazine (COMPAZINE) tablet 5 mgJump to med 5 mg, Oral, EVERY 6 HOURS NEEDED, Starting on Sat05/25/24 at 1345, Until Sat05/26/24 at 1419, Refractory Nausea Vomiting, Continue ondansetron in addition to prochlorperazine for refractory N/V., Post-op/Post-Proc Or Prochlorperazine (COMPAZINE) injection 5 mgJump to med 5 mg, Intravenous, EVERY 6 HOURS NEEDED, Starting on Sat05/25/24 at 1345, Until Sat05/26/24 at 1419, Refractory Nausea Vomiting, Administer IV if patient is unable to tolerate PO. Continue ondansetron in addition to prochlorperazine for refractory N/V., Post-op/Post-Proc Continuous Medication Order 06/10/2024 06/11/2024 06/12/2024 Sodium chloride 0.9% IV solution 500 mL Intravenous, at 10 mL/hr, CONTINUOUS, Starting on Sat06/12/24 at 0830, Until Sat06/12/24 at 1316, KVO fluids, start the morning of procedure., Pre-op/Pre-Proc 0830 (Canceled Entry - Provider: System Discharge - Comment: Automatically canceled at discontinue of medication order) PRN Medication Order 06/10/2024 06/11/2024 06/12/2024 Methohexital (BREVITAL) injection (CANCELED) NEEDED, Starting on Sat06/12/24 at 1024, Until Sat06/12/24 at 1027, Intra-op/Intra-Proc 1024 (Given - Provid er: MICKEY Grace) Scheduled Medication Order 09/24/2024 09/25/2024 09/26/2024 AMIOdarone (PACERONE) tablet 200 mg 200 mg, Oral, DAILY, First dose on Sat09/23/24 at 0900, Until Discontinued 0839 (Given - Provider: Caity Licea RN) 1731 (Given - Provider: Caity Licea RN) 0844 (Given - Provider: Caity Licea RN) aspirin chewable tablet 81 mg 81 mg, Oral, DAILY EVERY MORNING, First dose on Sat09/25/24 at 1300, Until Discontinued, Post-op/Post-Proc 1730 (Given - Provider: Caity Licea RN) 0844 (Given - Provider: Caity Licea RN) Enoxaparin Sodium (LOVENOX) injection 100 mg(Linked Group 1) 100 mg, Subcutaneous, EVERY 12 HOURS, First dose on 09/26/24 at 1030, Until Discontinued, For SUBCUTANEOUS route ONLY: alternate injection sites between left and right abdominal wall, pinching location and avoiding area around navel. If unable to use abdominal sites, may use the front or side of thighs., Indications: Atrial Fibrillation 1019 (Given - Provider: Caity Licea RN) eplerenone (INSPRA) tablet 25 mg 25 mg, Oral, DAILY, First dose on 11/2/24 at 0900, Until Discontinued 0934 (Given - Provider: Caity Licea RN) furOSEmide (LASIX) injection 40 mg 40 mg, Intravenous, 2 TIMES DAILY BEFORE MEALS, First dose on Sat09/23/24 at 1600, Until Discontinued, Administer by slow IV push at a rate not exceeding 40mg/min 1000 (Given - Provider: Caity Licea RN)1614 (Given - Provider: Caity Licea, RADHA) 0800 (Not Given - Provider: Caity Licea RN - Reason: Patient not available)1812 (Given - Provider: Caity Licea RN) 0847 (Not Given - Provider: Caity Licea RN - Reason: Patient/family refused - Comment: want to hold off to take the PO at home) Losartan (COZAAR) tablet 50 mg 50 mg, Oral, DAILY, First dose on Sat09/23/24 at 0900, Until Discontinued 0839 (Given - Provider: Caity Licea RN)1417 (Held by provider - Provider: Vangie Cruz MD - Reason: Other - Comment: PVC ablation tomorrow morning) 0900 (Automatically Held - Provider: Vangie Cruz MD) 0751 (Unheld by provider - Provider: Nabor Gordon MD)0847 (Given - Provider: Caity Licea RN) Metoprolol succinate (TOPROL-XL) tablet XL 25 mg 25 mg, Oral, DAILY AT BEDTIME, First dose on Sat09/22/24 at 2100, Until Discontinued, Slow release product. Do not crush. Extended release can be cut in half. 2145 (Given - Provider: Kathy Martinez RN) 2112 (Given - Provider: Lorraine Smith RN) Metoprolol succinate (TOPROL-XL) tablet XL 50 mg 50 mg, Oral, DAILY EVERY MORNING, First dose on Sat09/23/24 at 0900, Until Discontinued, Slow release product. Do not crush. Extended release can be cut in half. 0839 (Given - Provider: Caity Licea RN) 0900 (Not Given - Provider: Caity Licea RN - Reason: Patient not available) 0844 (Given - Provider: Caity Licea RN) Rosuvastatin (CRESTOR) tablet 10 mg 10 mg, Oral, DAILY, First dose on Sat09/23/24 at 0900, Until Discontinued 1945 (Given - Provider: Kathy Martinez RN) 2112 (Given - Provider: Lorraine Smith RN) warfarin (COUMADIN) tablet 2.5 mg 2.5 mg, Oral, CUSTOM FREQUENCY (Once per day on Saturday), First dose (after last reorder) on Sat09/29/24 at 1800, Until Discontinued, Swallow tablet whole; do not crush, split or chew. Contact pharmacy if alternate route or dose is needed. warfarin (COUMADIN) tablet 5 mg 5 mg, Oral, CUSTOM FREQUENCY (Once per day on Saturday), First dose (after last reorder) on Sat09/27/24 at 1800, Until Discontinued, ALTERNATE BETWEEN 2.5 MG AND 5 MG EACH DAY. Swallow tablet whole; do not crush, split or chew. Contact pharmacy if alternate route or dose is needed. warfarin (COUMADIN) tablet 5 mg 5 mg, Oral, ONCE, 1 dose, On 09/26/24 at 1800, Swallow tablet whole; do not crush, split or chew. Contact pharmacy if alternate route or dose is needed. PRN Medication Order 09/24/2024 09/25/2024 09/26/2024 Acetaminophen (TYLENOL) tablet 325 mg 325 mg, Oral, EVERY 6 HOURS NEEDED, Starting on Sat09/22/24 at 1516, Until 09/26/24 at 1237, Mild Pain, Maximum dose of acetaminophen is 4000 mg from all sources in 24 hours. 1945 (Given - Provider: Kathy Martinez RN) 1828 (Given - Provider: Caity Licea RN) alum/mag hydrox.-simethicone oral suspension 30 mL 30 mL, Oral, EVERY 6 HOURS NEEDED, Starting on Sat09/22/24 at 1516, Until 09/26/24 at 1237, Indigestion, Per 5 mL is equivalent to: (Alum-Mag Hydroxide 200-225 mg and Simethicone 20 mg) and (Alum-Mag Hydroxide 200-200 mg and Simethicone 20 mg) Docusate (COLACE) capsule 100 mg 100 mg, Oral, 2 TIMES DAILY NEEDED, Starting on Sat09/22/24 at 1515, Until 09/26/24 at 1237, Constipation 1st Line, Hold if diarrhea. 2146 (Given - Provider: Kathy Martinez RN) HYDROmorphone (DILAUDID) injection 0.5 mg 0.5 mg, Intravenous, EVERY 10 MINUTES NEEDED, 8 doses, Starting on Sat09/25/24 at 0855, Until 09/26/24 at 1237, Moderate Pain, Severe Pain, May give a total of 4mg in PACU., Recovery Lidocaine (XYLOCAINE) 10 mg/mL injection (CANCELED) NEEDED, Starting on Sat09/25/24 at 0805, Until Sat09/25/24 at 1259, Intra-op/Intra-Proc 0805 (Given - Provider: Kristen Harrison MD) magnesium oxide (MAG-OX) tablet 800 mg 800 mg, Oral, ADMINISTER DIRECTED, Starting on Sat09/22/24 at 1515, Until 09/26/24 at 1237, See admin instructions, For Magnesium 1.6 - 2.0, give 800 mg of Magnesium oxide. Magnesium sulfate 4 g in sterile water 50 ml premix IVPB 4 g, Intravenous, Administer over 4 Hours, ADMINISTER DIRECTED, Starting on Sat09/22/24 at 1515, Until 09/26/24 at 1237, Other, Magnesium Replacement Therapy, Magnesium Replacement Therapy: 1. If Magnesium less than 1.6, give 4 g Magnesium Sulfate IVPB over 4 hours (may give over 1 hour if arrhythmias present). Melatonin tablet 6 mg 6 mg, Oral, DAILY AT BEDTIME NEEDED, Starting on Sat09/22/24 at 1517, Until 09/26/24 at 1237, Insomnia 2146 (Given - Provider: Kathy Martinez RN) Ondansetron (ZOFRAN) tablet 4 mg(Linked Group 2) 4 mg, Oral, EVERY 6 HOURS NEEDED, Starting on Sat09/22/24 at 1516, Until 09/26/24 at 1237, Nausea / Vomiting Ondansetron 4mg/2ml (ZOFRAN) injection 4 mg(Linked Group 2) 4 mg, Intravenous, EVERY 6 HOURS NEEDED, Starting on Sat09/22/24 at 1516, Until 09/26/24 at 1237, Nausea / Vomiting Potassium chloride (K-DUR) tablet ER 20 mEq 20 mEq, Oral, ADMINISTER DIRECTED, Starting on Sat09/22/24 at 1515, Until 09/26/24 at 1237, See admin instructions, If Cr 2.0 - 2.5 mg/dL For Potassium less than 3.6, give 20 mEq Potassium Chloride orally, recheck in AM. If Cr greater than 2.5 mg/dL contact physician/LIP for Potassium less than 3.6 for replacement orders. If potassium is low please administer magnesium first if indicated Potassium chloride (K-DUR) tablet ER 40-60 mEq 40-60 mEq, Oral, ADMINISTER DIRECTED, Starting on Sat09/22/24 at 1515, Until 09/26/24 at 1237, See admin instructions, If Cr less than 2.0 mg/dL 1. For Potassium 3.6 - 4.0, give 40 mEq of Potassium Chloride orally, recheck in the AM. 2. For Potassium less than 3.6, give 60 mEq Potassium Chloride orally, recheck in 8 hours. 3. If potassium is low please administer magnesium first if indicated. 0843 (Given - Provider: Caity Licea RN) Sodium chloride 0.9% IV solution Intravenous, at 1 mL/hr, CONTINUOUS NEEDED, Starting on Sat09/25/24 at 1250, Until 09/26/24 at 1237, See administration instructions, Per pressure bag for all transduced lines., Post-op/Post-Proc Vancomycin HCl in NaCl (Vancocin) 1,500 mg in 0.9% NS 250 mL premix IVPB 1,500 mg, Intravenous, Administer over 1 Hours, CONSTRUCTION EXECUTIVE TO PROCEDURE, 1 dose, Starting on Sat09/25/24 at 0605, Until 09/26/24 at 1237, Other, Preoperative antibiotic, Order should be timed for day of procedure. 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 Vancomycin is preferred agent for device implants, based on national, community and local ([facility]) MRSA rates., Pre-op/Pre-Proc Linked Groups Order Group 1: Enoxaparin Sodium (LOVENOX) injection 100 mgJump to med 100 mg, Subcutaneous, EVERY 12 HOURS, First dose on 09/26/24 at 1030, Until Discontinued, For SUBCUTANEOUS route ONLY: alternate injection sites between left and right abdominal wall, pinching location and avoiding area around navel. If unable to use abdominal sites, may use the front or side of thighs., Indications: Atrial Fibrillation And CBC,PLATELETS (CANCELED) Routine, ONE TIME, On Sat09/26/24 at 0948, For 1 occurrence, New collection And PLATELET COUNT (CANCELED) Routine, EVERY 2 DAYS AM LAB, First occurrence on Sat09/28/24 at 0000, Until Specified, New collection And CHEM 7 (LYTES,BUN,CREA,GLUC) Baseline (CANCELED) Routine, ONE TIME, On Sat09/26/24 at 0948, For 1 occurrence, New collection And CHEM 7 (LYTES,BUN,CREA,GLUC) (CANCELED) Routine, EVERY 3 DAYS AM LAB, First occurrence on Sat09/29/24 at 0500, Until Specified, New collection Group 2: Ondansetron 4mg/2ml (ZOFRAN) injection 4 mgJump to med 4 mg, Intravenous, EVERY 6 HOURS NEEDED, Starting on Sat09/22/24 at 1516, Until Sat09/26/24 at 1237, Nausea / Vomiting Or Ondansetron (ZOFRAN) tablet 4 mgJump to med 4 mg, Oral, EVERY 6 HOURS NEEDED, Starting on Sat09/22/24 at 1516, Until Sat09/26/24 at 1237, Nausea / Vomiting PRN Medication Order 09/28/2024 09/29/2024 09/30/2024 Acetaminophen (TYLENOL) tablet 650 mg 650 mg, Oral, EVERY 6 HOURS NEEDED, Starting on Sat09/30/24 at 1354, Until Sat09/30/24 at 1929, Mild Pain, Maximum dose of acetaminophen is 4000 mg from all sources in 24 hours., Post-op/Post-Proc 1541 (Given - Provid er: Lillian Her RN) ceFAZolin (ANCEF) injection (CANCELED) Administer over 3 Minutes, NEEDED, Starting on Sat09/30/24 at 1255, Until Sat09/30/24 at 1400, Intra-op/Intra-Proc 1255 (Given - Provid er: Renay Argueta RN) fentaNYL (SUBLIMAZE) injection (CANCELED) Administer over 2 Minutes, NEEDED, Starting on Sat09/30/24 at 1321, Until Sat09/30/24 at 1400, Intra-op/Intra-Proc 1321 (Given - Provid er: Radha Umana RN)1332 (Given - Provider: Radha Uamna RN) Lidocaine (XYLOCAINE) 10 mg/mL injection (CANCELED) NEEDED, Starting on Sat09/30/24 at 1332, Until Sat09/30/24 at 1400, Intra-op/Intra-Proc 1332 (Given - Provid er: Juan Luis Omalley MD) midazolam (VERSED) injection (CANCELED) NEEDED, Starting on Sat09/30/24 at 1321, Until Sat09/30/24 at 1400, Intra-op/Intra-Proc 1321 (Given - Provid er: Radha Umana RN)1332 (Given - Provider: Radha Umana RN)1334 (Given - Provider: Radha Umana RN) Ondansetron 4mg/2ml (ZOFRAN) injection 4 mg 4 mg, Intravenous, EVERY 4 HOURS NEEDED, Starting on Sat09/30/24 at 1354, Until Sat09/30/24 at 1929, Nausea / Vomiting, Post-op/Post-Proc oxyCODONE (ROXICODONE) tablet 5 mg(Linked Group 1) 5 mg, Oral, EVERY 4 HOURS NEEDED, Starting on Sat09/30/24 at 1354, Until Sat09/30/24 at 1929, Moderate Pain, Severe Pain, PRN for Moderate Pain. Use for Severe Pain if IV not available for use as initial dose. Higher dose may be administred if lower dose was previously documented as ineffective and did not result in adverse effects (RR<10, decrease in level of consciousness)., Post-op/Post-Proc oxyCODONE HCl (ROXICODONE) tablet 10 mg(Linked Group 1) 10 mg, Oral, EVERY 4 HOURS NEEDED, Starting on Sat09/30/24 at 1354, Until Sat09/30/24 at 1929, Moderate Pain, Severe Pain, PRN for Moderate Pain. Use for Severe Pain if IV not available for use as initial dose. Higher dose may be administred if lower dose was previously documented as ineffective and did not result in adverse effects (RR<10, decrease in level of consciousness), Post-op/Post-Proc Vancomycin HCl in NaCl (Vancocin) 1,500 mg in 0.9% NS 250 mL premix IVPB (COMPLETED) 1,500 mg, Intravenous, Administer over 1 Hours, CONSTRUCTION EXECUTIVE TO PROCEDURE, 1 dose, Starting on Sat09/30/24 at 0000, Until Sat09/30/24 at 1557, Other, Preoperative antibiotic, Order should be timed for day of procedure. 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 Vancomycin is preferred agent for device implants, based on national, community and local [facility] rates., Pre-op/Pre-Proc 1140 ($$New Bag$$ - Provider: Mitzi Carrillo RN)1557 (Stopped - Provider: Lillian Her, RN - Comment: infusion completed) No Frequency Medication Order 09/28/2024 09/29/2024 09/30/2024 Sodium chloride 0.9% IV solution (COMPLETED) 1 dose, Starting on Sat09/30/24 at 1132, Until Sat09/30/24 at 1142, Created by cabinet override 1142 ($$New Bag$$ - Provider: Mitzi Carrillo RN)1557 (Hold - Provider: Lillian Her RN - Reason: Other - Comment: infusion completed) Linked Groups Order Group 1: oxyCODONE (ROXICODONE) tablet 5 mgJump to med 5 mg, Oral, EVERY 4 HOURS NEEDED, Starting on Sat09/30/24 at 1354, Until Sat09/30/24 at 1929, Moderate Pain, Severe Pain, PRN for Moderate Pain. Use for Severe Pain if IV not available for use as initial dose. Higher dose may be administred if lower dose was previously documented as ineffective and did not result in adverse effects (RR<10, decrease in level of consciousness)., Post-op/Post-Proc Or oxyCODONE HCl (ROXICODONE) tablet 10 mgJump to med 10 mg, Oral, EVERY 4 HOURS NEEDED, Starting on Sat09/30/24 at 1354, Until Sat09/30/24 at 1929, Moderate Pain, Severe Pain, PRN for Moderate Pain. Use for Severe Pain if IV not available for use as initial dose. Higher dose may be administred if lower dose was previously documented as ineffective and did not result in adverse effects (RR<10, decrease in level of consciousness), Post-op/Post-Proc FOR RECORDS PERTAINING TO PATIENTS WHO ARE [...] BE BASED ON THE PRIMARY CLINICAL RECORDS. [employer] provides no warranty or guarantee of the accuracy or completeness of information in this document.
--- NOTE | 2024-10-18 12:21 | XR_ITS ---
The [address] [address] Patient Name: TANIA CERVANTES MRN: [id number] date: 1965 Sex: M Assigned Patient Location: ER Current Patient Location: ER Accession/Order Number: [id number] Exam Date: 10/18/2024 12:48 Report Date: 10/18/2024 13:32 At the request of: CHEO JOVEL Procedure: XR chest 1V EXAM: XR chest 1V HISTORY: Syncope COMPARISON: 02/25/2024 and earlier. TECHNIQUE: AP upright chest. FINDINGS: Lungs clear without infiltrate or edema. Cardiac silhouette is enlarged accentuated by magnification unchanged. Pacemaker leads are stable. No developing pleural effusion or pneumothorax XR/XR chest 1V IMPRESSION: Stable chest x-ray, no acute findings. Clear lungs. Electronically authenticated by: GORAN WASHINGTON Date: 10/18/2024 13:32
--- NOTE | 2024-10-18 12:21 | ECG_ITS ---
The [facility] Test Date: 2024-10-18 Pat Name: TANIA CERVANTES Department: Room: - Gender: Male [employer] Assistant Department Head: : 1965 Requested By: MAINE SPRINGER Order Number: [id number] Reading MD: FRANCIE HENRIQUEZ Measurements Intervals [place] Rate: 77 P: 90 WA: 138 QRS: -73 QRSD: 140 T: 110 QT: 446 QTc: 478 Interpretive Statements [id number] Electronic ventricular pacemaker 9120 atypical ECG Compared to ECG 02/25/2024 10:48:23 No significant changes Electronically Signed On 10-19-2024 6:54:14 EST by FRANCIE HENRIQUEZ
--- NOTE | 2024-10-18 12:22 | ED.SYNCOPE1 ---
HPI - Syncope General Chief Complaint: Syncope Stated Complaint: HEART PROBLEMS AND WOULD LIKE TO BE CHECKED Time Seen by Provider: 10/18/24 12:08 Source: patient Mode of arrival: walk-in Limitations: no limitations History of Present Illness HPI narrative: 59-year-old male presents because of a syncopal episode. This happened 45 minutes ago when he was working out in his shop. He states he was standing and he started to feel dizzy and he put his hands on the counter and the next thing he knew he woke up on the floor. He did not injure himself. He does not complain of any pain including headache or neck pain. He does not have chest pain or shortness of breath. He states he has been gaining some weight recently and so he took some extra diuretic yesterday. He does not feel like he has been drinking enough fluids. He had his pacemaker battery changed 2 weeks ago. Related Data Home Medications ?Medication ?Instructions ?Recorded ?Confirmed amiodarone 100 mg tablet 100 mg PO DAILY 10/18/24 10/18/24 eplerenone 25 mg tablet 25 mg PO DAILY 10/18/24 10/18/24 furosemide 40 mg tablet 40 mg PO DAILY 10/18/24 10/18/24 losartan 50 mg tablet 50 mg PO DAILY 10/18/24 10/18/24 magnesium chloride 64 mg 64 mg PO DAILY 10/18/24 10/18/24 (magnesium chloride) tablet,delayed release (Mag 64) metoprolol succinate 50 mg 50 mg PO DAILY 10/18/24 10/18/24 tablet,extended release 24 hr montelukast 10 mg tablet 10 mg PO DAILY 10/18/24 10/18/24 rosuvastatin 10 mg tablet 10 mg PO DAILY 10/18/24 10/18/24 warfarin 5 mg tablet 5 mg PO DAILY 10/18/24 10/18/24 Allergies Allergy/AdvReac Type Severity Reaction Status Date / Time No Known Drug Allergies Allergy Verified 02/25/24 10:46 Review of Systems ROS Narrative A ten point review of systems is negative except as noted above. Exam Narrative Exam Narrative: Nurses note and vital signs reviewed and patient is not hypoxic. General: The patient appears well and in no apparent distress. Patient is resting comfortably on cart. Skin: Warm, dry, no pallor noted. There is no rash noted. Head: Normocephalic, atraumatic Eye: Normal conjunctiva, no drainage Ears, Nose, Mouth, and Throat: oral mucosa is moist. Nares patent. Cardiovascular: Regular Rate and Rhythm Respiratory: Patient is in no distress, no accessory muscle use, lungs are clear to auscultation, no wheezing, rales or rhonchi Back: non-tender GI: Soft and nontender Musculoskeletal: The patient has no evidence of calf tenderness, no pitting edema, symmetrical pulses noted bilaterally Neurological: A&O, normal speech Psychiatric: Cooperative Constitutional Vital Signs, click to edit/add: Last Vital Signs Temp 98.4 F 10/18/24 12:06 Pulse 73 10/18/24 15:02 Resp 19 10/18/24 15:02 BP 121/76 10/18/24 15:02 Pulse Ox 96 10/18/24 15:02 O2 Del Method Room Air 10/18/24 15:02 Course Vital Signs Vital signs: Vital Signs Pulse Rate 73 10/18/24 12:04 Respiratory Rate 21 H 10/18/24 12:04 Temperature 98.4 F 10/18/24 12:06 Pulse Rate 73 10/18/24 15:02 Respiratory Rate 19 10/18/24 15:02 Blood Pressure 121/76 10/18/24 15:02 Pulse Oximetry 96 10/18/24 15:02 Oxygen Delivery Method Room Air 10/18/24 15:02 MDM - Syncope MDM Narrative Medical decision making narrative: The patient presented after syncopal episode. His blood work is essentially normal with therapeutic INR. 2 troponins are not significantly changed. We were able to interrogate his pacemaker and I was able to speak to the cordage sales representative. The patient had an episode of ventricular fibrillation at 11:08 AM and the defibrillator delivered and appropriate shock which converted him back into an appropriate rhythm. She is asymptomatic and is able to be discharged home. 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 Findings are discussed thoroughly with the patient and his . Differential Diagnosis Differential diagnosis: Likely syncope due to orthostatic hypotension, vasovagal syncope, dehydration and other (V. tach, V-fib) Lab Data Attestation: I reviewed the patient's lab results. Labs: Lab Results 10/18/24 10/18/24 Range/Units 12:46 13:34 WBC 7.4 (4.0-11.0) 10^3/uL RBC 3.66 L (4.70-6.10) 10^6/uL Hgb 11.3 L (14.0-18.0) g/dL Hct 34.1 L (42.0-54.0) % MCV 93.2 (80.0-94.0) fL MCH 30.9 (25.9-34.0) pg MCHC 33.1 (29.9-35.2) g/dL RDW 14.6 (11.0-15.0) % Plt Count 197 (150-450) 10^3/uL MPV 10.0 (9.5-13.5) fL Neut % (Auto) 73.6 (43.0-75.0) % Lymph % (Auto) 15.9 L (20.5-60.0) % [place] % (Auto) 8.6 (1.7-12.0) % Eos % (Auto) 1.1 (0.9-7.0) % Baso % (Auto) 0.4 (0.2-2.0) % Neut # (Auto) 5.5 (1.4-6.5) 10^3/uL Lymph # (Auto) 1.2 (1.2-3.8) 10^3/uL [place] # (Auto) 0.6 (0.3-0.8) 10^3/uL Eos # (Auto) 0.1 (0.0-0.7) 10^3/uL Baso # (Auto) 0.0 (0.0-0.1) 10^3/uL Abs Immat Gran (auto) 0.03 (0.00-0.03) 10^3/uL Imm/Tot Granulo (auto) 0.4 (0.0-0.5) % PT 22.0 H (9.0-11.6) sec INR 2.25 Sodium 140 (136-145) mmol/L Potassium 3.7 (3.5-5.1) mmol/L Chloride 104 (98-107) mmol/L Carbon Dioxide 25.5 (21.0-32.0) mmol/L Anion Gap 14.2 BUN 27.0 H (7.0-18.0) mg/dL Creatinine 1.32 H (0.70-1.30) mg/dL Est GFR ( Amer) >60 (>=60 mL/min/1.73m^2) Est GFR (Non-Af Amer) 56 L (>=60 mL/min/1.73m^2) BUN/Creatinine Ratio 20.5 Glucose 104 (74-106) mg/dL Calcium 8.8 (8.5-10.1) mg/dL Magnesium 1.8 (1.8-2.4) mg/dL Troponin I High Sens 34.8 41.1 (4.0-76.1) pg/mL ECG Data Attestation: I personally reviewed and interpreted this ECG as follows: (EKG on my interpretation shows paced rhythm with a rate of 77) Discharge Plan Discharge Chief Complaint: Syncope Clinical Impression: Syncope, Ventricular fibrillation Patient Disposition: Home, Self-Care Time of Disposition Decision: 14:21 Condition: Good Mode of Transportation: Private Vehicle Prescriptions / Home Meds: No Action eplerenone 25 mg tablet 25 mg PO DAILY amiodarone 100 mg tablet 100 mg PO DAILY furosemide 40 mg tablet 40 mg PO DAILY losartan 50 mg tablet 50 mg PO DAILY magnesium chloride [Mag 64] 64 mg tablet,delayed release (DR/EC) 64 mg PO DAILY metoprolol succinate 50 mg tablet extended release 24 hr 50 mg PO DAILY montelukast 10 mg tablet 10 mg PO DAILY rosuvastatin 10 mg tablet 10 mg PO DAILY warfarin 5 mg tablet 5 mg PO DAILY Print Language: Persian Instructions: Syncope (ED) Referrals: MAINE SPRINGER DO [Primary Care Provider] - 1 week Discharge Date/Time: 10/18/24 15:11
[2024-10-18 12:52] LABS: Basophils Percent Auto 0.4 % (0.2-2.0); Eosinophils Absolute Auto 0.1 10^3/uL (0.0-0.7); Eosinophils Percent Auto 1.1 % (0.9-7.0); Hematocrit 34.1 % (42.0-54.0); Hemoglobin 11.3 g/dL (14.0-18.0); Immature Granulocytes Abs Auto 0.03 10^3/uL (0.00-0.03); Immature Granulocytes Pct Auto 0.4 % (0.0-0.5); Lymphocytes Absolute Auto 1.2 10^3/uL (1.2-3.8); Lymphocytes Percent Auto 15.9 % (20.5-60.0); Mean Corpuscular HGB Conc 33.1 g/dL (29.9-35.2); Mean Corpuscular Hemoglobin 30.9 pg (25.9-34.0); Mean Corpuscular Volume 93.2 fL (80.0-94.0); Monocytes Absolute Auto 0.6 10^3/uL (0.3-0.8); Monocytes Percent Auto 8.6 % (1.7-12.0); Neutrophils Absolute Auto 5.5 10^3/uL (1.4-6.5); Neutrophils Percent Auto 73.6 % (43.0-75.0); Platelet Count 197 10^3/uL (150-450); Red Blood Count 3.66 10^6/uL (4.70-6.10); Red Cell Distribution Width 14.6 % (11.0-15.0); White Blood Count 7.4 10^3/uL (4.0-11.0)
[2024-10-18 13:07] LABS: INR 2.25
--- NOTE | 2024-10-18 13:07 | CT_ITS ---
The [address] [address] Patient Name: TANIA CERVANTES MRN: [id number] date: 1965 Sex: M Assigned Patient Location: ER Current Patient Location: [facility] Accession/Order Number: [id number] Exam Date: 10/18/2024 13:45 Report Date: 10/18/2024 14:38 At the request of: CHEO JOVEL Procedure: CT head/brain wo con EXAM: CT head/brain wo con HISTORY: RUSS Additional history: 59-year-old male after fall with impact to the back of the head after syncopal episode. COMPARISON: None. TECHNIQUE: Axial CT images of the head were obtained. Coronal and sagittal reformats were provided. Dose reduction techniques were achieved by using automated exposure control and/or adjustment of mA and/or kV according to patient size and/or use of iterative reconstruction technique. FINDINGS: Acute: No hemorrhage, herniation, or hydrocephalus. No evidence of recent infarct. Brain: Brain parenchyma within normal limits in density and volume for age. Calcified lesion at the frontal interhemispheric fissure, likely meningioma (1.7 x 0.5 x 2.2 cm). Vessels: No abnormal intravascular density to suggest thrombosis. Bones: No suspicious lesion in the calvarium or skull base. Other: Bilateral lens replacements. Extracranial soft tissues otherwise unremarkable. CT/CT head/brain wo con IMPRESSION: No acute intracranial pathology. Electronically authenticated by: HARRIET ALVAREZ Date: 10/18/2024 14:38
[2024-10-18 13:09] LABS: Anion Gap 14.2; BUN Creatinine Ratio 20.5; Calcium 8.8 mg/dL (8.5-10.1); Carbon Dioxide 25.5 mmol/L (21.0-32.0); Chloride 104 mmol/L (98-107); Estimated GFR (African America >60 (>=60 mL/min/1.73m^2); Estimated GFR (Non-African Ame 56 (>=60 mL/min/1.73m^2); Glucose 104 mg/dL (74-106); Magnesium 1.8 mg/dL (1.8-2.4); Potassium 3.7 mmol/L (3.5-5.1); Sodium 140 mmol/L (136-145)
[2024-10-18 13:17] LABS: Troponin I High Sensitivity 34.8 pg/mL (4.0-76.1)
[2024-10-18 13:56] LABS: Troponin I High Sensitivity 41.1 pg/mL (4.0-76.1)
== END 2024-10-18 15:11 | disposition home or self-care (01) ==
PROVIDERS: Emergency Provider Emergency Medicine; PCP Internal Medicine
DX: I49.01 Ventricular fibrillation (principal); R55 Syncope and collapse; Z95.0 Presence of cardiac pacemaker
CPT/HCPCS: 36415; 70450; 71045; 80048; 83735; 84484; 85025; 85610; 93005; 99285

== ENCOUNTER 2024-10-26 03:35 | Outpatient (RCR) | payer MEDICARE, SELFPAY | END 2024-11-24 09:36 | disposition home or self-care (01) | LOC: MM 03:35 | PROVIDERS: PCP Internal Medicine; Visit Provider Internal Medicine | DX: Z51.81 Encounter for therapeutic drug level monitoring (principal); Z79.01 Long term (current) use of anticoagulants; I48.91 Unspecified atrial fibrillation | CPT/HCPCS: 85610; G0463 ==

== ENCOUNTER 2024-11-26 00:33 | Outpatient (RCR) | payer MEDICARE, SELFPAY | END 2024-12-25 15:21 | disposition home or self-care (01) | LOC: MM 00:33 | PROVIDERS: PCP Internal Medicine; Visit Provider Internal Medicine | DX: Z51.81 Encounter for therapeutic drug level monitoring (principal); Z79.01 Long term (current) use of anticoagulants; I48.91 Unspecified atrial fibrillation | CPT/HCPCS: 85610; G0463 ==

== ENCOUNTER 2024-12-28 02:20 | Outpatient (RCR) | payer MEDICARE, SELFPAY | END 2025-01-22 12:42 | disposition home or self-care (01) | LOC: MM 02:20 | PROVIDERS: PCP Internal Medicine; Visit Provider Internal Medicine | DX: Z51.81 Encounter for therapeutic drug level monitoring (principal); Z79.01 Long term (current) use of anticoagulants; I48.91 Unspecified atrial fibrillation | CPT/HCPCS: 85610; G0463 ==

== ENCOUNTER 2025-01-23 12:00 | Outpatient (RCR) | payer MEDICARE, SELFPAY | END 2025-02-19 12:29 | disposition home or self-care (01) | LOC: MM 12:00 | PROVIDERS: PCP Internal Medicine; Visit Provider Internal Medicine | DX: Z51.81 Encounter for therapeutic drug level monitoring (principal); Z79.01 Long term (current) use of anticoagulants; I48.91 Unspecified atrial fibrillation | CPT/HCPCS: 85610; G0463 ==

== ENCOUNTER 2025-01-26 08:34 | Outpatient (OUT) | payer MEDICARE, SELFPAY ==
[2025-01-26 10:10] LABS: Anion Gap 13.3; BUN Creatinine Ratio 18.8; Calcium 8.8 mg/dL (8.5-10.1); Carbon Dioxide 26.4 mmol/L (21.0-32.0); Chloride 102 mmol/L (98-107); Estimated GFR (African America >60 (>=60 mL/min/1.73m^2); Estimated GFR (Non-African Ame 50 (>=60 mL/min/1.73m^2); Glucose 104 mg/dL (74-106); Potassium 3.7 mmol/L (3.5-5.1); Sodium 138 mmol/L (136-145)
== END 2025-01-26 08:35 | disposition home or self-care (01) ==
LOC: LAB 08:36
PROVIDERS: PCP Internal Medicine
DX: I50.9 Heart failure, unspecified (principal); I50.23 Acute on chronic systolic (congestive) heart failure; Z51.81 Encounter for therapeutic drug level monitoring; I48.91 Unspecified atrial fibrillation; Z79.01 Long term (current) use of anticoagulants
CPT/HCPCS: 36415; 80048; 85610

== ENCOUNTER 2025-04-06 12:30 | Outpatient (RCR) | payer MEDICARE, SELFPAY | END 2025-04-24 07:10 | disposition home or self-care (01) | LOC: MM 12:30 | PROVIDERS: PCP Internal Medicine; Visit Provider Internal Medicine | DX: Z51.81 Encounter for therapeutic drug level monitoring (principal); Z79.01 Long term (current) use of anticoagulants; I48.91 Unspecified atrial fibrillation | CPT/HCPCS: 85610; G0463 ==

== ENCOUNTER 2025-04-25 07:37 | Outpatient (RCR) | payer MEDICARE, SELFPAY | END 2025-05-20 14:38 | disposition home or self-care (01) | LOC: MM 07:37 | PROVIDERS: PCP Internal Medicine; Visit Provider Internal Medicine | DX: Z51.81 Encounter for therapeutic drug level monitoring (principal); Z79.01 Long term (current) use of anticoagulants; I48.91 Unspecified atrial fibrillation | CPT/HCPCS: 85610; G0463 ==

== ENCOUNTER 2025-05-04 09:06 | Outpatient (OUT) | payer MEDICARE, SELFPAY ==
[2025-05-04 10:03] LABS: Chol HDL Ratio 3.6; Cholesterol 135 mg/dL (<=200); HDL Cholesterol 38 mg/dL (40-60); Triglycerides 136 mg/dL (<=150); VLDL CHOLESTEROL 27.2 mg/dL
== END 2025-05-04 09:07 | disposition home or self-care (01) ==
LOC: LAB 09:11
PROVIDERS: PCP Internal Medicine; Visit Provider Internal Medicine Cardiovascular Disease
DX: I50.22 Chronic systolic (congestive) heart failure (principal); Z51.81 Encounter for therapeutic drug level monitoring; Z79.01 Long term (current) use of anticoagulants; I48.91 Unspecified atrial fibrillation
CPT/HCPCS: 36415; 80061; 85610; G0463

== ENCOUNTER 2025-05-25 02:38 | Outpatient (RCR) | payer MEDICARE, SELFPAY | END 2025-06-24 16:49 | disposition home or self-care (01) | LOC: MM 02:38 | PROVIDERS: PCP Internal Medicine; Visit Provider Internal Medicine | DX: Z51.81 Encounter for therapeutic drug level monitoring (principal); Z79.01 Long term (current) use of anticoagulants; I48.91 Unspecified atrial fibrillation ==

== ENCOUNTER 2025-06-25 00:47 | Outpatient (RCR) | payer MEDICARE, SELFPAY | END 2025-07-22 13:02 | disposition home or self-care (01) | LOC: MM 00:47 | PROVIDERS: PCP Internal Medicine; Visit Provider Internal Medicine | DX: Z51.81 Encounter for therapeutic drug level monitoring (principal); Z79.01 Long term (current) use of anticoagulants; I48.91 Unspecified atrial fibrillation | CPT/HCPCS: 85610; G0463 ==

== ENCOUNTER 2025-07-26 00:50 | Outpatient (RCR) | payer MEDICARE, SELFPAY | END 2025-08-24 15:25 | disposition home or self-care (01) | LOC: MM 00:50 | PROVIDERS: PCP Internal Medicine; Visit Provider Internal Medicine | DX: Z51.81 Encounter for therapeutic drug level monitoring (principal); Z79.01 Long term (current) use of anticoagulants; I48.91 Unspecified atrial fibrillation | CPT/HCPCS: 85610; G0463 ==

== ENCOUNTER 2025-08-25 04:17 | Outpatient (RCR) | payer MEDICARE, SELFPAY | END 2025-09-24 23:59 | disposition home or self-care (01) | LOC: MM 04:17 | PROVIDERS: PCP Internal Medicine; Visit Provider Internal Medicine | DX: Z51.81 Encounter for therapeutic drug level monitoring (principal); Z79.01 Long term (current) use of anticoagulants; I48.91 Unspecified atrial fibrillation ==

== ENCOUNTER 2025-10-25 10:23 | Outpatient (RCR) | payer MEDICARE, SELFPAY | END 2025-11-24 13:15 | disposition home or self-care (01) | LOC: MM 10:23 | PROVIDERS: PCP Internal Medicine; Visit Provider Internal Medicine | DX: Z51.81 Encounter for therapeutic drug level monitoring (principal); Z79.01 Long term (current) use of anticoagulants; I48.91 Unspecified atrial fibrillation ==